=== PATIENT | male | born 1950 | race Caucasian/White ===

== ENCOUNTER 2020-01-24 06:24 | Day surgery (SDC) | payer OTHER, SELFPAY ==
[2020-01-22 19:10] VITALS: BMI 24.7
--- NOTE | 2020-01-23 12:45 | P.CONAN_ITS ---
Documented by User: Ann Miller 01/23/20 12:47 HPI - Anesthesia Eval Consult details Narrative: 69yo M for colonoscopy: screening [facility] Past Medical History Medical History Diabetes HTN (hypertension) Hyperlipidemia Peripheral neuropathy Surgical History Surgical History History of colonoscopy Social History Social History Smoking Status: Current every day smoker Patient Interested in Nicotine Replacement: No Use of substances other than those prescribed or required for medical reasons: No Advance Directives: Yes Advance Directives Information Provided: No (requested copy) Advance Directives on File: No Advance Directives Date on File: 05/05/19 Meds Allergies Allergy/AdvReac Type Severity Reaction Status Date / Time No Known Allergies Allergy Verified 01/22/20 19:17 Home Medications Medication Instructions Recorded Confirmed Type Aspirin Low Dose 81 mg PO DAILY 01/22/20 01/22/20 History Lantus U-100 Insulin 13 units SUBMUCOSAL INJ DAILY 01/22/20 01/22/20 History Novolog Flexpen U-100 Insulin 3 units TIDAC 01/22/20 01/22/20 History Vitamin D3 1,000 units PO DAILY 01/22/20 01/22/20 History amlodipine 10 mg PO DAILY 01/22/20 01/22/20 History chlorthalidone 12.5 mg PO DAILY 01/22/20 01/22/20 History ferrous sulfate 325 mg PO DAILY 01/22/20 01/22/20 History gabapentin 600 mg PO BID 01/22/20 01/22/20 History lisinopril 20 mg PO DAILY 01/22/20 01/22/20 History metoprolol tartrate 50 mg PO BID 01/22/20 01/22/20 History pravastatin 40 mg PO DAILY 01/22/20 01/22/20 History primidone 50 mg PO BEDTIME 01/22/20 01/22/20 History Exam Exam Date and Time: January 23, 2020 1245 Height,Weight and Vital Signs: Height 5 ft 5 in Weight 67.585 kg Assessment and Plan Assessment Anesthesia Assessment: Chart Reviewed Documented by User: Aletha Gregg 01/24/20 07:36 [facility] Past Medical History Medical History Diabetes HTN (hypertension) Hyperlipidemia Peripheral neuropathy Surgical History Surgical History History of colonoscopy Social History Social History Smoking Status: Current every day smoker Patient Interested in Nicotine Replacement: No Use of substances other than those prescribed or required for medical reasons: No Advance Directives: Yes Advance Directives Information Provided: No (requested copy) Advance Directives on File: No Advance Directives Date on File: 05/05/19 Meds Allergies Allergy/AdvReac Type Severity Reaction Status Date / Time No Known Allergies Allergy Verified 01/22/20 19:17 Home Medications Medication Instructions Recorded Confirmed Type Aspirin Low Dose 81 mg PO DAILY 01/22/20 01/22/20 History Lantus U-100 Insulin 13 units SUBMUCOSAL INJ DAILY 01/22/20 01/22/20 History Novolog Flexpen U-100 Insulin 3 units TIDAC 01/22/20 01/22/20 History Vitamin D3 1,000 units PO DAILY 01/22/20 01/22/20 History amlodipine 10 mg PO DAILY 01/22/20 01/22/20 History chlorthalidone 12.5 mg PO DAILY 01/22/20 01/22/20 History ferrous sulfate 325 mg PO DAILY 01/22/20 01/22/20 History gabapentin 600 mg PO BID 01/22/20 01/22/20 History lisinopril 20 mg PO DAILY 01/22/20 01/22/20 History metoprolol tartrate 50 mg PO BID 01/22/20 01/22/20 History pravastatin 40 mg PO DAILY 01/22/20 01/22/20 History primidone 50 mg PO BEDTIME 01/22/20 01/22/20 History Exam Airway Mallampati Class: II TM Dist: >3cm Denture: Upper Loose/Missing/Broken Teeth: No Heart: RRR Lungs: CTA Assessment and Plan Assessment Anesthesia Assessment: Anesthesia Plan Discussed and Chart Reviewed Final Anesthetic Review NPO: Yes ASA Class: II Final Preanesthetic Review: Meds/Allgs Chart Reviewed, Consent Obtained/Reviewed and Anes Risks/Benef Reviewed Patient Risk: Intermediate Procedure Risk: Low Anesthetic Plan Anesthetic Plan: MAC: Disposition: Standard PACU
[2020-01-24 06:49] VITALS: BP 117/55; PULSE 69; RESP 16; TEMP 36.4; O2SAT 100
[2020-01-24] MEDS: Lactated Ringers 1,000 ML 100 ML IVCONT (07:07)
[2020-01-24 07:12] LABS: Glucose, Whole Blood 160 mg/dL (60-115)
[2020-01-24 08:17] VITALS: BP 101/53; PULSE 75; RESP 16; TEMP 36.2; O2SAT 100
[2020-01-24 08:22] VITALS: BP 118/62; PULSE 73; RESP 16; O2SAT 100
--- NOTE | 2020-01-24 08:23 | PM.OP ---
Brief Operative Note Date of procedure: 01/24/20 Pre-op diagnosis: Screening Post-op diagnosis: other (Colon polyp, Diverticulosis) Procedure: Colonoscopy to cecum and TI with biopsy Surgeon: Jason Mayorga Anesthesia: MAC Estimated blood loss (mL): 2.0 Pathology: other (A. Ascending colon polyp) Condition: stable Disposition: PACU
[2020-01-24 08:28] VITALS: BP 104/60; PULSE 74; RESP 16; O2SAT 100
[2020-01-24 08:32] VITALS: BP 123/56; PULSE 74; RESP 16; O2SAT 100
--- NOTE | 2020-01-24 09:01 | HO.POSTANES ---
Post Anesthesia Evaluation Post Anesthesia Evaluation Vital Signs: Vital Signs Temp Pulse Resp BP Pulse Ox 01/24/20 08:32 97.2 F 74 16 123/56 L 100 01/24/20 08:28 74 16 104/60 100 01/24/20 08:22 73 16 118/62 100 01/24/20 08:17 97.2 F 75 16 101/53 L 100 01/24/20 06:49 97.6 F 69 16 117/55 L 100 Anesthesia: Monitored Mental Status: Awake Pain Control: Satisfactory Nausea/Vomiting: None Hydration: Adequate Anesthesia-Related Issues: No Anes. Related Issues
--- NOTE | 2020-01-24 09:38 | OP_ITS ---
SURGEON: Jason Mayorga MD INDICATIONS: The patient presents for evaluation of colorectal cancer screening. Full consent has been obtained from him for this, including risks of bleeding and perforation. PREOPERATIVE DIAGNOSIS: Colorectal cancer screening. POSTOPERATIVE DIAGNOSIS: PROCEDURE PERFORMED: Colonoscopy to the cecum and terminal ileum with biopsy and removal of polyp. ESTIMATED BLOOD LOSS: COMPLICATIONS: ANESTHESIA: Monitored anesthesia care. ASSISTANTS: SPECIMENS: POSTOPERATIVE DIAGNOSES: Colorectal cancer screening, small colon polyp, diverticulosis, and small internal hemorrhoids. DESCRIPTION OF PROCEDURE: The patient was placed in the left lateral decubitus position. The digital rectal exam revealed no abnormalities. The Olympus video pediatric colonoscope was entered into the rectum and advanced easily to the cecum. Once in the cecum, I did identify normal-appearing cecal pouch with appendiceal orifice and a normal-appearing ileocecal valve. The terminal ileum was cannulated and appeared normal. The scope was withdrawn back in the colon. The entire cecum and ileocecal valve appeared normal. The scope was slowly withdrawn assessing all mucosal surfaces carefully. Preparation was excellent. In the ascending colon, was a flat approximately 3 or 4 mm probable hyperplastic polyp, which was biopsied and completely removed with cold biopsy forceps. I did not visualize any other polyps, colitis, nor angiodysplasia. There was a mild amount of sigmoid diverticulosis. In the rectum, scope was retroflexed visualizing small internal hemorrhoids, but no other pathology. The rectal mucosa appeared normal. The scope was straightened out and withdrawn from the patient. He tolerated the procedure well and was returned to the recovery area in stable condition. IMPRESSION: 1. Small colon polyp, status post biopsy and removal. 2. Diverticulosis. 3. Small internal hemorrhoids. PLAN: The results of the biopsy will be checked. Given this minimal finding and his age, I doubt he will need another screening colonoscopy even if the small polyp today is a tubular adenoma. He will otherwise see me on a p.r.n. basis. This has been discussed with his . MD MONSTER Chisholm/LIUDMILA / [id number]
== END 2020-01-24 09:10 | disposition home or self-care (01) ==
PROVIDERS: Internal Medicine; PCP Internal Medicine; Visit Provider Anesthesiology
PROC: 0DJD8ZZ Inspection of Lower Intestinal Tract, Via Natural or Artificial Opening Endoscopic (ICD-10-PCS; CPT 45378; principal; 2020-01-24 07:30)
DX: Z12.11 Encounter for screening for malignant neoplasm of colon (principal); D12.2 Benign neoplasm of ascending colon; K57.30 Diverticulosis of large intestine without perforation or abscess without bleeding; K64.8 Other hemorrhoids; I10 Essential (primary) hypertension; E11.9 Type 2 diabetes mellitus without complications; G62.9 Polyneuropathy, unspecified; E78.5 Hyperlipidemia, unspecified; F17.210 Nicotine dependence, cigarettes, uncomplicated; Z79.4 Long term (current) use of insulin; Z79.82 Long term (current) use of aspirin; Z79.899 Other long term (current) drug therapy
CPT/HCPCS: 45380; 82947; 88305

== ENCOUNTER 2024-06-16 13:27 | Inpatient (IN) | payer OTHER, SELFPAY ==
--- NOTE | ~2024-06-16 | NM_ITS ---
CLINICAL HISTORY: distended gallbaldder, elevated LFTs NM HIDA Scan Comparison: CT/SR - CT ABDOMEN PELVIS WO IV CON - 06/16/24 16:17 EDT Technique: distended gallbaldder, elevated LFTs (Hx) / Statics (DICOM Hx) (DICOM Hx) Findings: Normal liver uptake, distribution, and excretion. Gallbladder appears at 28 minutes. Central bile ducts appear at 16 minutes. Duodenum visualized at 24 minutes. No enterogastric reflux of radiotracer is identified. IMPRESSION: No evidence of biliary obstruction or acute cholecystitis. This document has been electronically signed by: Alexys Quintana MD on 06/17/2024 17:16:16
--- NOTE | ~2024-06-16 | CT_ITS ---
CLINICAL HISTORY: MOISES, evaluate for masses CT chest without contrast Comparison: None Findings: The heart is normal size. The visualized thyroid and mediastinum are unremarkable. Right lower lobe consolidation. Additional small multifocal consolidations are noted within the right upper and left lower lobes. Findings are consistent with multifocal pneumonia. Mild right hilar lymphadenopathy, likely reactive. The visualized upper abdomen is unremarkable. No acute fractures. IMPRESSION: Right lower lobe consolidation. Additional small multifocal consolidations are noted within the right upper and left lower lobes. Findings are consistent with multifocal pneumonia. Mild right hilar lymphadenopathy, likely reactive in nature. This document has been electronically signed by: Taqueria Miller MD on 06/16/2024 19:17:40
--- NOTE | ~2024-06-16 | CT_ITS ---
CLINICAL HISTORY: dizziness, evaluate for mass CT head without contrast Comparison: None Findings: No intra-axial mass, midline shift, hydrocephalus, or acute hemorrhage. No significant atrophy-like change or white matter disease. The visualized paranasal sinuses and mastoid air cells are normal. The orbits are unremarkable. There is no acute fracture. IMPRESSION: 1. No acute intracranial findings. This document has been electronically signed by: Taqueria Miller MD on 06/16/2024 19:28:29
--- NOTE | ~2024-06-16 | CT_ITS ---
CLINICAL HISTORY: MOISES, diarrhea, evaluate for masses CT abdomen and pelvis without contrast Comparison: None Findings: The lung bases are clear. Cholelithiasis with moderately distended gallbladder measuring 4.3 cm in transverse diameter. No gallbladder wall thickening or pericholecystic fluid is seen. Remainder of the solid organs are grossly unremarkable. No bowel obstruction, pneumoperitoneum, or pneumatosis. Moderate-sized right inguinal hernia containing partial herniation of the cecum. No evidence of bowel obstruction. Mild prostatomegaly with prostate measuring 5.0 x 3.8 x 5.7 cm. Moderately distended urinary bladder. The bones are intact. Severe multilevel spondylosis of the lumbar spine with moderate levoscoliosis at L3. IMPRESSION: No acute findings. Cholelithiasis with moderately distended gallbladder. Correlate with patient NPO status. Otherwise no evidence of acute cholecystitis. Moderate-sized right inguinal hernia containing partial herniation of the cecum. No evidence of bowel obstruction. Mild prostatomegaly with moderately distended urinary bladder. Severe multilevel spondylosis of the lumbar spine with moderate levoscoliosis at L3. This document has been electronically signed by: Taqueria Miller MD on 06/16/2024 19:25:28
[2024-06-16 13:51] VITALS: BP 107/61; PULSE 97; RESP 16; TEMP 36.4; O2SAT 92; BMI 20.7
--- NOTE | 2024-06-16 13:53 | ED.GENADULT ---
HPI - General Adult General Chief complaint: General Medical Stated complaint: congestion, blocked ears Time Seen by Provider: 06/16/24 14:17 Source: patient Mode of arrival: ambulatory Limitations: no limitations History of Present Illness ED Provider: Jeff Rivera DO HPI narrative: 74-year-old male with past medical history of insulin-dependent diabetes, hypertension, hyperlipidemia and previous longstanding tobacco use who has had a week of 2 episodes of diarrhea per day, generalized weakness, body aches, headache, dizziness and nonproductive cough. Patient denies black or bloody diarrhea. He denies vomiting episodes. He denies chest pain. Denies ear pain but does report mild decreased hearing of the right ear over the last week. He states he has had very little to eat over the last week, occasional soup and lots of water every day. He denies alcohol use. He has had no recent medication changes. Related Data Home Medications ?Medication ?Instructions ?Recorded ?Confirmed Aspirin Low Dose 81 mg PO DAILY 01/22/20 01/22/20 Lantus U-100 Insulin 13 units Submucosal Inj DAILY 01/22/20 01/22/20 Novolog Flexpen U-100 Insulin 3 units TIDAC 01/22/20 01/22/20 Vitamin D3 1,000 units PO DAILY 01/22/20 01/22/20 amlodipine 10 mg tablet 10 mg PO DAILY 01/22/20 01/22/20 chlorthalidone 25 mg tablet 12.5 mg PO DAILY 01/22/20 01/22/20 ferrous sulfate 325 mg (65 mg 325 mg PO DAILY 01/22/20 01/22/20 iron) tablet gabapentin 600 mg tablet 600 mg PO BID 01/22/20 01/22/20 lisinopril 20 mg tablet 20 mg PO DAILY 01/22/20 01/22/20 metoprolol tartrate 50 mg tablet 50 mg PO BID 01/22/20 01/22/20 pravastatin 40 mg tablet 40 mg PO DAILY 01/22/20 01/22/20 primidone 50 mg tablet 50 mg PO BEDTIME 01/22/20 01/22/20 Allergies Allergy/AdvReac Type Severity Reaction Status Date / Time No Known Allergies Allergy Verified 06/16/24 13:56 Review of Systems Review of Systems: Yes all other systems are reviewed and are negative PMFSH Past Medical History Medical History Diabetes HTN (hypertension) Hyperlipidemia Peripheral neuropathy Surgical History History of colonoscopy Social History Social History Cigarettes Per Day: 1 Advance Directives: Yes Advance Directives on File: Yes Advance Directives Date on File: 05/05/19 Physical Exam ED Vital Signs: Vital Signs - 24 hr 06/16/24 13:51 06/16/24 18:08 Temperature 97.6 F 98.4 F Pulse Rate 97 104 H Respiratory Rate 16 20 Blood Pressure 107/61 108/64 Pulse Oximetry 92 94 Oxygen Delivery Method Room Air Room Air BMI result Body Mass Index 20.7 Constitutional: ?Alert, oriented, speaking in full sentences, weak appearing, thin HEENT: ?Normocephalic, atraumatic. ?Dry mucous membranes, unremarkable TM bilaterally Eyes: ?PERRL, EOMI, no nystagmus Neck: ?Supple, nontender Chest: ?No chest wall tenderness Respiratory: ?Some diminished lung sounds in the bases, right-sided greater than left, otherwise lungs clear to auscultation, no increased work of breathing Cardio: ?Tachycardic rate, regular rhythm, no murmur, 2+ radial and DP pulses symmetrically GI: ?Soft, nondistended, nontender, very small right inguinal hernia that reduces, and is nontender Back: ?Normal range of motion, nontender Skin: ?No rash, no lesions Neuro: ?Alert and oriented to person, place and time, moves all 4 extremities, no focal deficits, full strength and sensation of the bilateral upper and lower extremities, no numbness of the face, no facial droop, normal speech, normal protrusion of the tongue, normal elevation of the uvula. Extremities: ?No swelling or tenderness, full range of motion Psych: ?Calm, alert and cooperative, appropriate behavior Course Course Course Narrative: This is a Rapid Medical Examination (RME) performed by Stephanie Griffin PA-C in triage. Full HPI, ROS, assessment and treatment plan per primary provider in the Main ED. 74 yo male wiith history of DM, HTN, who presents to the ER for evaluation of dizziness, ear pain/blockage, congestion, fevers at night and diarrhea for the last 1 week. is also having diarrhea. no chest pain, SOB or abdominal pains. right EAC w/ swelling and erythema, unable to visualize TM. Plan: EKG, labs, viral swab Medications Administered Generic Name Dose Route Start Last Admin Trade Name Freq PRN Reason Stop Dose Admin Magnesium Sulfate 2 gm in 50 mls @ 25 mls/hr 06/16/24 19:44 06/16/24 19:59 Magnesium Sulfate/H2o IV 06/16/24 21:43 25 mls/hr ONCE ONE Administration Discontinued Medications Generic Name Dose Route Start Last Admin Trade Name Freq PRN Reason Stop Dose Admin Ceftriaxone Sodium 1 gm 06/16/24 17:01 06/16/24 17:15 Ceftriaxone Sodium 1 Gm Vial IVPUSH 06/16/24 17:02 1 gm ONCE ONE Administration Magnesium Sulfate 2 gm in 50 mls @ 25 mls/hr 06/16/24 15:10 06/16/24 17:05 Magnesium Sulfate/H2o IV 06/16/24 17:09 Infused ONCE ONE Infusion Azithromycin 500 mg/ Sodium 250 mls @ 125 mls/hr 06/16/24 17:01 06/16/24 19:15 Chloride IV 06/16/24 19:00 Infused ONCE ONE Infusion Medical Decision Making Medical Decision Making MDM Narrative: Patient presenting with multiple symptoms over the last week concerning for viral versus bacterial infection. His labs are quite remarkable today (no prior for comparison, [facility]) with a white count of 30 K, neutrophilic predominant with 3% bands, metabolic acidosis without lactic acidosis, hyponatremia to 121 (pending urine osmolality and urine lytes), MOISES with a creatinine of 3.36 (again no prior) and hypomagnesemia of 1.1. He is otherwise alert and oriented, unremarkable neurologic exam and with the exception of mild tachycardia, unremarkable vital signs. He has not have clinical signs consistent with C diff colitis and no episodes of diarrhea since his stay for several hours in the emergency department. I am concerned that his hyponatremia is at least due to consuming lots of water over the last week with very little food intake due to decreased appetite but given his appearance and previous tobacco use, I am concerned he might have SIADH secondary to malignancy. CT imaging of the chest shows evidence of multifocal pneumonia with extensive right lower lobe consolidation. CT imaging of the abdomen and pelvis performed due to diarrhea and shows cholelithiasis without evidence of cholecystitis, moderate right-sided inguinal hernia with partial herniation of the cecum without evidence of bowel obstruction, mild prostatomegaly, and degenerative changes of the lumbar spine. Patient is started on treatment for pneumonia. He does not meet criteria for sepsis. CT imaging of the brain was also ordered due to dizziness and showed no acute abnormalities. Admission/Observation Consideration of admission/observation: Escalation of care including admission/observation considered Consult Healthcare Provider Management of the patient was discussed with: Hospitalist Lab Data MDM Lab Attestation statement: I reviewed the patient's lab results. Multiple abnormal labs including hyponatremia at 121, decreased bicarb of 16, elevated anion gap to 19, MOISES with a creatinine of 3.36 and BUN of 64, hypomagnesemia at 1.1, mild elevation of AST over ALT at 98 and 51 respectively without hyperbilirubinemia, hypoalbuminemia at 2.8, significant leukocytosis of 29.6 which is neutrophilic predominant at 28.4 absolute neutrophils, mild anemia at 11.7, unremarkable platelets at 222 and [place] cells noted with differential including CKD, without evidence of hemolytic anemia and without history of sickle cell disease. 06/16/24 14:18 06/16/24 14:18 Labs: Lab Results 06/16/24 06/16/24 06/16/24 Range/Units 14:18 15:21 15:50 WBC 29.6 H (4.8-10.8) X10*3/uL RBC 3.66 L (4.60-5.80) X10*6/uL Hgb 11.7 L (14.0-18.0) g/dl Hct 32.6 L (42.0-52.0) % MCV 89.1 (80.0-98.0) fL MCH 32.0 (27.0-33.0) pg MCHC 35.9 (31.0-36.0) g/dl RDW 13.0 (11.0-16.0) % Plt Count 222 (160-400) X10*3/uL MPV 9.7 (9.4-12.4) fL Immature Gran % (Auto) Cancelled Neut % (Auto) Cancelled Lymph % (Auto) Cancelled [place] % (Auto) Cancelled Eos % (Auto) Cancelled Baso % (Auto) Cancelled Lymph # (Auto) Cancelled [place] # (Auto) Cancelled Eos # (Auto) Cancelled Baso # (Auto) Cancelled Abs Immat Gran (auto) Cancelled Absolute Neuts (auto) Cancelled Absolute Nucleated RBC 0.000 (0.0-0.012) X10*3/uL Nucleated RBC % (auto) 0.0 (0.0-0.2) /100WBC Neutrophils % (Manual) 93 H (45-73) % Band Neutrophils % 3 (3-5) % Lymphocytes % (Manual) 1 L (20-40) % Monocytes % (Manual) 3 (2-11) % Abs Neuts (Manual) 28.4 H (2.0-8.3) X10*3/uL Lymphocytes # (Manual) 0.3 L (1.2-4.9) X10*3/uL Monocytes # (Manual) 0.9 (0.1-1.2) X10*3/uL Toxic Vacuolation PRESENT Dohle Bodies PRESENT Platelet Estimate NORMAL (NORMAL) Plt Morphology Comment NORMAL RBC Morphology NOTED [place] Cells 3+ (>5) /OIF VBG pH (7.32-7.43) VBG pCO2 mmHg VBG pO2 mmHg VBG HCO3 (22-26) mmol/L VBG O2 Saturation % VBG Base Excess mmol/L Sodium 121 L (135-145) mmol/L Potassium 4.7 (3.3-5.1) mmol/L Chloride 91 L (96-108) mmol/L Carbon Dioxide 16 L (22-29) mmol/L Anion Gap 19 (12-20) BUN 64 H (9-16) mg/dL Creatinine 3.36 H (0.5-1.4) mg/dL Estim Creat Clear Calc 15.3 Estimated GFR 18 Random Glucose 117 H (60-115) mg/dL Osmolality (281-305) mosm/kg Lactic Acid 1.0 (0.5-2.0) mmol/L Calcium 8.3 L (8.4-10.2) mg/dL Magnesium 1.1 L* (1.6-2.6) mg/dL Total Bilirubin 0.3 (0.0-1.0) mg/dL Direct Bilirubin 0.1 (0.0-0.5) mg/dL AST 98 H (5-37) U/L ALT 51 H (0-40) U/L Alkaline Phosphatase 142 H (39-117) U/L Total Protein 7.2 (6.5-8.0) g/dL Albumin 2.8 L (3.5-5.0) g/dL Triglycerides 83 (<150) mg/dL Cholesterol 57 (<200) mg/dL LDL Cholesterol, Calc 28 (<100) mg/dL HDL Cholesterol 13 L (>40) mg/dL Urine Color Urine Appearance Urine pH (5.0-9.0) Ur Specific [place] (1.005-1.025) Urine Protein (Neg-Trace) mg/dL Urine Glucose (UA) (Negative) mg/dL Urine Ketones (Negative) mg/dL Urine Blood (Negative) Urine Nitrite (Negative) Ur Leukocyte Esterase (Negative) Urine RBC (0-2) /HPF Urine WBC (0-5) /HPF Ur Squamous Epith Cells (0-2) /HPF Urine Bacteria (None Seen) Hyaline Casts (0-2) /LPF Urine Osmolality (373-1093) mosm/kg Ur Random Sodium mmol/L Ur Random Potassium mmol/L Ur Random Chloride mmol/L Influenza Type A (PCR) NEGATIVE (Negative) Influenza Type B (PCR) NEGATIVE (Negative) RSV RNA Qual (PCR) NEGATIVE (Negative) SARS-CoV-2 RNA (RT-PCR) NEGATIVE (Negative) 06/16/24 06/16/24 06/16/24 Range/Units 15:58 16:56 17:29 WBC (4.8-10.8) X10*3/uL RBC (4.60-5.80) X10*6/uL Hgb (14.0-18.0) g/dl Hct (42.0-52.0) % MCV (80.0-98.0) fL MCH (27.0-33.0) pg MCHC (31.0-36.0) g/dl RDW (11.0-16.0) % Plt Count (160-400) X10*3/uL MPV (9.4-12.4) fL Immature Gran % (Auto) Neut % (Auto) Lymph % (Auto) [place] % (Auto) Eos % (Auto) Baso % (Auto) Lymph # (Auto) [place] # (Auto) Eos # (Auto) Baso # (Auto) Abs Immat Gran (auto) Absolute Neuts (auto) Absolute Nucleated RBC (0.0-0.012) X10*3/uL Nucleated RBC % (auto) (0.0-0.2) /100WBC Neutrophils % (Manual) (45-73) % Band Neutrophils % (3-5) % Lymphocytes % (Manual) (20-40) % Monocytes % (Manual) (2-11) % Abs Neuts (Manual) (2.0-8.3) X10*3/uL Lymphocytes # (Manual) (1.2-4.9) X10*3/uL Monocytes # (Manual) (0.1-1.2) X10*3/uL Toxic Vacuolation Dohle Bodies Platelet Estimate (NORMAL) Plt Morphology Comment RBC Morphology [place] Cells /OIF VBG pH 7.31 L (7.32-7.43) VBG pCO2 37 mmHg VBG pO2 40 mmHg VBG HCO3 19 L (22-26) mmol/L VBG O2 Saturation 63.0 % VBG Base Excess -6.5 mmol/L Sodium (135-145) mmol/L Potassium (3.3-5.1) mmol/L Chloride (96-108) mmol/L Carbon Dioxide (22-29) mmol/L Anion Gap (12-20) BUN (9-16) mg/dL Creatinine (0.5-1.4) mg/dL Estim Creat Clear Calc Estimated GFR Random Glucose (60-115) mg/dL Osmolality 283 (281-305) mosm/kg Lactic Acid (0.5-2.0) mmol/L Calcium (8.4-10.2) mg/dL Magnesium (1.6-2.6) mg/dL Total Bilirubin (0.0-1.0) mg/dL Direct Bilirubin (0.0-0.5) mg/dL AST (5-37) U/L ALT (0-40) U/L Alkaline Phosphatase (39-117) U/L Total Protein (6.5-8.0) g/dL Albumin (3.5-5.0) g/dL Triglycerides (<150) mg/dL Cholesterol (<200) mg/dL LDL Cholesterol, Calc (<100) mg/dL HDL Cholesterol (>40) mg/dL Urine Color Yellow Urine Appearance Clear Urine pH 5.0 (5.0-9.0) Ur Specific [place] 1.020 (1.005-1.025) Urine Protein Trace (Neg-Trace) mg/dL Urine Glucose (UA) >=1000 H (Negative) mg/dL Urine Ketones Negative (Negative) mg/dL Urine Blood Negative (Negative) Urine Nitrite Negative (Negative) Ur Leukocyte Esterase Negative (Negative) Urine RBC 3-5 H (0-2) /HPF Urine WBC 0-5 (0-5) /HPF Ur Squamous Epith Cells 0-2 (0-2) /HPF Urine Bacteria None Seen (None Seen) Hyaline Casts 0-2 (0-2) /LPF Urine Osmolality 305 L (373-1093) mosm/kg Ur Random Sodium < 20.0 mmol/L Ur Random Potassium 23.7 mmol/L Ur Random Chloride < 20.0 mmol/L Influenza Type A (PCR) (Negative) Influenza Type B (PCR) (Negative) RSV RNA Qual (PCR) (Negative) SARS-CoV-2 RNA (RT-PCR) (Negative) Independent Interpretation I performed an independent interpretation of an: EKG Interpretation: Normal sinus rhythm at 97 beats per minute, normal axis, normal intervals, no diagnostic ST or T-wave abnormalities, no prior for comparison. Discharge Plan Discharge Clinical Impression: Pneumonia, Acute hyponatremia, Hypomagnesemia, MOISES (acute kidney injury), Inguinal hernia, Cholelithiasis Patient Disposition: Admitted As Inpatient Prescriptions: No Action Aspirin Low Dose 81 mg PO DAILY primidone 50 mg Tablet 50 mg PO BEDTIME gabapentin 600 mg Tablet 600 mg PO BID lisinopril 20 mg Tablet 20 mg PO DAILY ferrous sulfate 325 mg (65 mg iron) Tablet 325 mg PO DAILY Vitamin D3 1,000 units PO DAILY pravastatin 40 mg Tablet 40 mg PO DAILY chlorthalidone 25 mg Tablet 12.5 mg PO DAILY Lantus U-100 Insulin 13 units Submucosal Inj DAILY Novolog Flexpen U-100 Insulin 3 units TIDAC amlodipine 10 mg Tablet 10 mg PO DAILY metoprolol tartrate 50 mg Tablet 50 mg PO BID Print Language: Cymraes
--- NOTE | 2024-06-16 13:54 | ECG_ITS ---
Test Reason : DIZZINESS Blood Pressure : */* mmHG Vent. Rate : 97 BPM Atrial Rate : 97 BPM P-R Int : 162 ms QRS Dur : 88 ms QT Int : 336 ms P-R-T Axes : 37 52 73 degrees QTcB Int : 426 ms Normal sinus rhythm with sinus arrhythmia Normal ECG No previous ECGs available Referred By: Sonal Griffin Electronically Signed By: Lemuel Bustamante
[2024-06-16 14:26] LABS: Hematocrit 32.6 % (42.0-52.0); Hemoglobin 11.7 g/dl (14.0-18.0); Mean Corpuscular HGB Conc 35.9 g/dl (31.0-36.0); Mean Corpuscular Volume 89.1 fL (80.0-98.0); Mean Platelet Volume 9.7 fL (9.4-12.4); Platelet Count 222 X10*3/uL (160-400); Red Blood Count 3.66 X10*6/uL (4.60-5.80); White Blood Count 29.6 X10*3/uL (4.8-10.8)
[2024-06-16 14:47] LABS: Alanine Aminotransferase 51 U/L (0-40); Albumin Level 2.8 g/dL (3.5-5.0); Alkaline Phosphatase 142 U/L (39-117); Anion Gap 19 (12-20); Aspartate Amino Transferase 98 U/L (5-37); Bilirubin Direct 0.1 mg/dL (0.0-0.5); Bilirubin Total 0.3 mg/dL (0.0-1.0); Blood Urea Nitrogen 64 mg/dL (9-16); Calcium 8.3 mg/dL (8.4-10.2); Carbon Dioxide 16 mmol/L (22-29); Chloride 91 mmol/L (96-108); Creatinine Clr Calc Pharmacy 15.3; Estimated Glomerular Filt Rate 18; Glucose Random 117 mg/dL (60-115); Magnesium 1.1 mg/dL (1.6-2.6); Potassium 4.7 mmol/L (3.3-5.1); Sodium 121 mmol/L (135-145); Total Protein 7.2 g/dL (6.5-8.0)
[2024-06-16 14:49] LABS: Band Neutrophils Percent 3 % (3-5); Lymphocytes Absolute Manual 0.3 X10*3/uL (1.2-4.9); Lymphocytes Percent Manual 1 % (20-40); Monocytes Absolute Manual 0.9 X10*3/uL (0.1-1.2); Monocytes Percent Manual 3 % (2-11); Neutrophils Absolute Manual 28.4 X10*3/uL (2.0-8.3); Neutrophils Percent Manual 93 % (45-73)
[2024-06-16 14:50] LABS: Burr Cells 3+ (>5) /OIF; Dohle Bodies PRESENT; Platelet Estimate NORMAL (NORMAL); Platelet Morphology Comment NORMAL; RBC Morphology NOTED
[2024-06-16 14:51] LABS: Toxic Vacuolation PRESENT
[2024-06-16] MEDS: Magnesium Sulfate/H2O 2 GM/50 ML PIGGYBACK IV ×2 (15:20→19:59)
[2024-06-16 16:03] LABS: VBG Base Excess -6.5 mmol/L; VBG HCO3 19 mmol/L (22-26); VBG pCO2 37 mmHg; VBG pH 7.31 (7.32-7.43); VBG pO2 40 mmHg
[2024-06-16 16:05] LABS: Venous Blood Gas Refer to POC result
[2024-06-16 17:14] LABS: Influenza A PCR NEGATIVE (Negative); Influenza B PCR NEGATIVE (Negative); Resp Syncy Virus RNA Qual PCR NEGATIVE (Negative); SARS COV2 PCR INHOUSE NEGATIVE (Negative)
[2024-06-16] MEDS: Azithromycin 500 MG in 0.9 % Sodium Chloride 250 ML 125 MG IV (17:15)
[2024-06-16] MEDS: cefTRIAXone sodium 1 GM VIAL IVPUSH (17:15)
[2024-06-16 17:16] LABS: Chloride Urine Random < 20.0 mmol/L; Potassium Urine Random 23.7 mmol/L; Sodium Urine Random < 20.0 mmol/L
[2024-06-16 17:25] LABS: Appearance Urine Clear; Color Urine Yellow; Glucose Urine UA >=1000 mg/dL (Negative); Leukocyte Esterase Urine Negative (Negative); Nitrite Urine Negative (Negative); UMIC TRIGGER UACC YES; Urine Blood Negative (Negative); Urine Ketones Negative (Negative); Urine Protein Trace mg/dL (Neg-Trace)
[2024-06-16 17:42] LABS: Bacteria Urine None Seen (None Seen); Hyaline Casts Urine 0-2 /LPF (0-2); Squamous Epithelial Cell Urine 0-2 /HPF (0-2); WBC Urine 0-5 /HPF (0-5)
[2024-06-16 17:45] LABS: Osmolality Urine 305 mosm/kg (373-1093)
[2024-06-16 18:00] LABS: Osmolality, Serum 283 mosm/kg (281-305)
[2024-06-16 18:08] VITALS: BP 108/64; PULSE 104; RESP 20; TEMP 36.9; O2SAT 94
[2024-06-16 19:22] LABS: Cholesterol 57 mg/dL (<200); HDL Cholesterol 13 mg/dL (>40); LDL Cholesterol Calculated 28 mg/dL (<100); Triglycerides 83 mg/dL (<150)
[2024-06-16 20:39] LABS: Glucose, Whole Blood 131 mg/dL (60-115)
--- NOTE | 2024-06-16 21:08 | PM.IMHP ---
History of Present Illness Date of Service: 06/16/24 Attending physician on admission: Acosta Giraldo Chief Complaint: dizzy, congestion, fever, diarrhea Patient is a 74-year-old male with a past medical history significant for insulin-dependent diabetes, HTN, ARUNA, HLD, tremor, reported to the ED due to dizziness, congestion, tactile fever and diarrhea for the past week. He reports he has not been able to eat or drink much at all for the past few days. His has also been experiencing diarrhea. He denies any chest pain, shortness of breath or abdominal pain. No urinary symptoms including hematuria, dysuria or frequency. He also denies any nausea or vomiting. He is experiencing diarrhea mostly in the morning but has been unable to tolerate much by mouth because of this. Review of Systems Constitutional: Constitutional: Denies body ache(s), Denies chills, Reports fatigue and Reports headache(s) Eyes: Eyes: Denies change in vision and Denies photophobia ENT: Reports dizziness, Reports headache(s), Reports nasal congestion and Reports nasal discharge Cardiovascular: Cardiovascular: Denies chest pain, Denies rapid heart rate, Denies leg edema, Denies lightheadedness and Denies dyspnea Respiratory: Respiratory: Reports chest congestion, Reports cough, Denies dyspnea and Denies wheezing Gastrointestinal: Gastrointestinal: Denies melena, Denies hematochezia, Reports diarrhea, Denies nausea and Denies vomiting Genitourinary: Genitourinary: Denies hematuria, Denies difficulty urinating and Denies urinary urgency Musculoskeletal: Musculoskeletal: Denies myalgias Integumentary/Breasts: Skin/Breast: Denies rash Neurologic: Denies confusion, Reports dizziness and Reports headache(s) Psychiatric: Psychiatric: Denies confusion Endocrine: Endocrine: Reports fatigue Hematologic/Lymphatic: Hematologic/Lymphatic: Denies easy bleeding and Denies easy bruising Allergic/Immunologic: Allergic/Immunologic: Denies wheezing [facility] Medical History Diabetes HTN (hypertension) Hyperlipidemia Peripheral neuropathy Functional capacity: independent ambulation Surgical History History of colonoscopy Social History Cigarettes Per Day: 1 Advance Directives: Yes Advance Directives on File: Yes Advance Directives Date on File: 05/05/19 Narrative: No smoking or drug use. Consumes about 2 beers per week Meds Allergies Allergy/AdvReac Type Severity Reaction Status Date / Time No Known Allergies Allergy Verified 06/16/24 13:56 Active Medications: Current Medications Acetaminophen (Acetaminophen 325 Mg Tablet) 650 mg PO Q6H PRN PRN Reason: Pain, Mild 1-3,fever,headache Calcium Carbonate (Calcium Carbonate 750 Mg Tab.Chew) 750 mg PO Q4H PRN PRN Reason: Heartburn Enoxaparin Sodium (Enoxaparin Sodium 30 Mg/0.3 Ml Syringe) 30 mg SUBCUT Q24H TAMIE Magnesium Sulfate (Magnesium Sulfate/H2o) 2 gm in 50 mls @ 25 mls/hr IV ONCE ONE Stop: 06/16/24 21:43 Last Admin: 06/16/24 19:59 Dose: 25 mls/hr Lactated Ringer's (Lr) 1,000 mls @ 50 mls/hr IVCONT .Q20H TAMIE Magnesium Hydroxide (Milk Of Magnesia 30 Ml Oral.Susp) 30 ml PO DAILY PRN PRN Reason: Constipation Melatonin (Melatonin 3 Mg Tablet) 6 mg PO BEDTIME PRN PRN Reason: Insomnia Ondansetron HCl (Ondansetron Hcl 4 Mg/2 Ml Vial) 4 mg IVPUSH Q8H PRN PRN Reason: Nausea and Vomiting Sodium Chloride (0.9 % Sodium Chloride Flush 3 Ml Syringe) 3 ml IVFLUSH QSHIFT [facility] Home Medications ?Medication ?Instructions ?Recorded ?Confirmed ?Last Taken ?Type Aspirin Low Dose 81 mg PO DAILY 01/22/20 01/22/20 01/16/20 09:00 History Lantus U-100 Insulin 13 units Submucosal Inj DAILY 01/22/20 01/22/20 Unknown History Novolog Flexpen U-100 Insulin 3 units TIDAC 01/22/20 01/22/20 Unknown History Vitamin D3 1,000 units PO DAILY 01/22/20 01/22/20 Unknown History amlodipine 10 mg tablet 10 mg PO DAILY 01/22/20 01/22/20 Unknown History chlorthalidone 25 mg tablet 12.5 mg PO DAILY 01/22/20 01/22/20 Unknown History ferrous sulfate 325 mg (65 mg 325 mg PO DAILY 01/22/20 01/22/20 Unknown History iron) tablet gabapentin 600 mg tablet 600 mg PO BID 01/22/20 01/22/20 Unknown History lisinopril 20 mg tablet 20 mg PO DAILY 01/22/20 01/22/20 Unknown History metoprolol tartrate 50 mg tablet 50 mg PO BID 01/22/20 01/22/20 Unknown History pravastatin 40 mg tablet 40 mg PO DAILY 01/22/20 01/22/20 Unknown History primidone 50 mg tablet 50 mg PO BEDTIME 01/22/20 01/22/20 Unknown History Physical Exam Vital Signs and Narrative: Vital Signs: Last Vital Signs Temp 98.4 F 06/16/24 18:08 Pulse 104 H 06/16/24 18:08 Resp 20 06/16/24 18:08 BP 108/64 06/16/24 18:08 Pulse Ox 94 06/16/24 18:08 O2 Del Method Room Air 06/16/24 18:08 BMI result Body Mass Index 20.7 General: AOx3, no acute distress. tolerating sandwich and water. does not appear to have dysphagia, no choking Resp: crackles RLL, no wheezing CVS: mild tachycardia, normal rhythm, no murmur GI: +BS, NT, no distention Skin: Warm, dry Neuro: Cranial nerves II-XII grossly intact bilaterally. Motor grossly intact bilaterally Extremities: No LE edema Psych: Appropriate affect Const: General: No confusion Orientation/consciousness: No confusion Eyes: Direct Ophthalmoscopy: No photophobia Neuro: General: No confusion Results Labs 06/16/24 14:18 06/16/24 14:18 Labs: Laboratory Results - last 24 hr 06/16/24 06/16/24 06/16/24 14:18 15:21 15:50 MCV 89.1 MCH 32.0 MCHC 35.9 RDW 13.0 Plt Count 222 MPV 9.7 Immature Gran % (Auto) Cancelled Neut % (Auto) Cancelled Lymph % (Auto) Cancelled [place] % (Auto) Cancelled Eos % (Auto) Cancelled Baso % (Auto) Cancelled Lymph # (Auto) Cancelled [place] # (Auto) Cancelled Eos # (Auto) Cancelled Baso # (Auto) Cancelled Abs Immat Gran (auto) Cancelled Absolute Neuts (auto) Cancelled Absolute Nucleated RBC 0.000 Nucleated RBC % (auto) 0.0 Neutrophils % (Manual) 93 H Band Neutrophils % 3 Lymphocytes % (Manual) 1 L Monocytes % (Manual) 3 Abs Neuts (Manual) 28.4 H Lymphocytes # (Manual) 0.3 L Monocytes # (Manual) 0.9 Toxic Vacuolation PRESENT Dohle Bodies PRESENT Platelet Estimate NORMAL Plt Morphology Comment NORMAL RBC Morphology NOTED [place] Cells 3+ (>5) VBG pH VBG pCO2 VBG pO2 VBG HCO3 VBG O2 Saturation VBG Base Excess Anion Gap 19 Estim Creat Clear Calc 15.3 Estimated GFR 18 POC Glucose Random Glucose 117 H Osmolality Lactic Acid 1.0 Calcium 8.3 L Magnesium 1.1 L* Total Bilirubin 0.3 Direct Bilirubin 0.1 AST 98 H ALT 51 H Alkaline Phosphatase 142 H Total Protein 7.2 Albumin 2.8 L Triglycerides 83 Cholesterol 57 LDL Cholesterol, Calc 28 HDL Cholesterol 13 L Urine Color Urine Appearance Urine pH Ur Specific [place] Urine Protein Urine Glucose (UA) Urine Ketones Urine Blood Urine Nitrite Ur Leukocyte Esterase Urine RBC Urine WBC Ur Squamous Epith Cells Urine Bacteria Hyaline Casts Urine Osmolality Ur Random Sodium Ur Random Potassium Ur Random Chloride Influenza Type A (PCR) NEGATIVE Influenza Type B (PCR) NEGATIVE RSV RNA Qual (PCR) NEGATIVE SARS-CoV-2 RNA (RT-PCR) NEGATIVE 06/16/24 06/16/24 06/16/24 15:58 16:56 17:29 MCV MCH MCHC RDW Plt Count MPV Immature Gran % (Auto) Neut % (Auto) Lymph % (Auto) [place] % (Auto) Eos % (Auto) Baso % (Auto) Lymph # (Auto) [place] # (Auto) Eos # (Auto) Baso # (Auto) Abs Immat Gran (auto) Absolute Neuts (auto) Absolute Nucleated RBC Nucleated RBC % (auto) Neutrophils % (Manual) Band Neutrophils % Lymphocytes % (Manual) Monocytes % (Manual) Abs Neuts (Manual) Lymphocytes # (Manual) Monocytes # (Manual) Toxic Vacuolation Dohle Bodies Platelet Estimate Plt Morphology Comment RBC Morphology [place] Cells VBG pH 7.31 L VBG pCO2 37 VBG pO2 40 VBG HCO3 19 L VBG O2 Saturation 63.0 VBG Base Excess -6.5 Anion Gap Estim Creat Clear Calc Estimated GFR POC Glucose Random Glucose Osmolality 283 Lactic Acid Calcium Magnesium Total Bilirubin Direct Bilirubin AST ALT Alkaline Phosphatase Total Protein Albumin Triglycerides Cholesterol LDL Cholesterol, Calc HDL Cholesterol Urine Color Yellow Urine Appearance Clear Urine pH 5.0 Ur Specific [place] 1.020 Urine Protein Trace Urine Glucose (UA) >=1000 H Urine Ketones Negative Urine Blood Negative Urine Nitrite Negative Ur Leukocyte Esterase Negative Urine RBC 3-5 H Urine WBC 0-5 Ur Squamous Epith Cells 0-2 Urine Bacteria None Seen Hyaline Casts 0-2 Urine Osmolality 305 L Ur Random Sodium < 20.0 Ur Random Potassium 23.7 Ur Random Chloride < 20.0 Influenza Type A (PCR) Influenza Type B (PCR) RSV RNA Qual (PCR) SARS-CoV-2 RNA (RT-PCR) 06/16/24 20:34 MCV MCH MCHC RDW Plt Count MPV Immature Gran % (Auto) Neut % (Auto) Lymph % (Auto) [place] % (Auto) Eos % (Auto) Baso % (Auto) Lymph # (Auto) [place] # (Auto) Eos # (Auto) Baso # (Auto) Abs Immat Gran (auto) Absolute Neuts (auto) Absolute Nucleated RBC Nucleated RBC % (auto) Neutrophils % (Manual) Band Neutrophils % Lymphocytes % (Manual) Monocytes % (Manual) Abs Neuts (Manual) Lymphocytes # (Manual) Monocytes # (Manual) Toxic Vacuolation Dohle Bodies Platelet Estimate Plt Morphology Comment RBC Morphology [place] Cells VBG pH VBG pCO2 VBG pO2 VBG HCO3 VBG O2 Saturation VBG Base Excess Anion Gap Estim Creat Clear Calc Estimated GFR POC Glucose 131 H Random Glucose Osmolality Lactic Acid Calcium Magnesium Total Bilirubin Direct Bilirubin AST ALT Alkaline Phosphatase Total Protein Albumin Triglycerides Cholesterol LDL Cholesterol, Calc HDL Cholesterol Urine Color Urine Appearance Urine pH Ur Specific [place] Urine Protein Urine Glucose (UA) Urine Ketones Urine Blood Urine Nitrite Ur Leukocyte Esterase Urine RBC Urine WBC Ur Squamous Epith Cells Urine Bacteria Hyaline Casts Urine Osmolality Ur Random Sodium Ur Random Potassium Ur Random Chloride Influenza Type A (PCR) Influenza Type B (PCR) RSV RNA Qual (PCR) SARS-CoV-2 RNA (RT-PCR) Assessment and Plan (1) Sepsis: Status: Acute (2) Pneumonia: Qualifiers: Laterality: bilateral Lung location: lower lobe of lung Pneumonia type: due to unspecified organism Qualified Code(s): J18.9 - Pneumonia, unspecified organism Status: Acute (3) Acute hyponatremia: Status: Acute (4) MOISES (acute kidney injury): Status: Acute (5) Hypomagnesemia: Status: Acute (6) Cholelithiasis: Qualifiers: Biliary obstruction: without biliary obstruction Cholecystitis presence: without cholecystitis Cholelithiasis location: gallbladder Qualified Code(s): K80.20 - Calculus of gallbladder without cholecystitis without obstruction Status: Acute (7) Diarrhea: Status: Acute (8) Metabolic acidosis: Status: Acute (9) Elevated LFTs: Status: Acute (10) Inguinal hernia: Qualifiers: Laterality: unilateral Obstruction and gangrene presence: without obstruction or gangrene Recurrence: not specified as recurrent Qualified Code(s): K40.90 - Unilateral inguinal hernia, without obstruction or gangrene, not specified as recurrent Status: Acute (11) Hilar adenopathy: Status: Acute Plan Patient is a 74-year-old male with a past medical history significant for insulin-dependent diabetes, HTN, ARUNA, HLD, tremor, reported to the ED due to dizziness, congestion, tactile fever and diarrhea for the past week. Workup negative for COVID/flu/RSV. Chest CT with multifocal pneumonia, labs and vitals significant for sepsis. Abdominopelvic CT with moderate distended gallbladder, no abdominal pain, HIDA scan ordered. Labs also significant for MOISES, hyponatremia, hypomagnesemia. Sepsis secondary to multifocal pneumonia - WBC 29.6, tachycardic, lactic acid normal, blood cultures x2 pending, not severe sepsis - chest CT with right lower lobe consolidation, additional small multifocal consolidations are noted within the right upper and left lower lobes. Findings are consistent with multifocal pneumonia. Mild right hilar lymphadenopathy, likely reactive in nature. - COVID/flu/RSV negative - check urine legionella due to diarrhea with pneumonia - started on ceftriaxone and azithromycin in ED, continue - started on LR 50 cc/HR for hyponatremia, deferred fluid bolus for sepsis at this time - follow CBC and CMP Hypovolemic hyponatremia - secondary to poor p.o. intake and diarrhea - likely cause for dizziness - sodium 121 - urine sodium normal, urine osmolality low - head CT negative - LR 50 cc/hr - check BMP at midnight and reassess fluids - nephrology consult Diarrhea - labs significant for metabolic acidosis, MOISES with electrolyte abnormalities secondary to dehydration - no diarrhea currently here - stool studies including C diff and GI panel - abdominopelvic CT with no acute findings. cholelithiasis with moderately distended gallbladder, correlate with NPO status. Moderate size right inguinal hernia containing partial herniation of the cecum. No evidence of bowel obstruction. Mild prostatomegaly with moderately distended urinary bladder periods severe multilevel spondylosis of the lumbar spine with moderate levoscoliosis at L3. - monitor CBC and CMP Elevated LFTs/distended gallbladder - HIDA scan ordered - AST 98, ALT 51, alk-phos 142 bilirubin normal - patient not having any pain - consider GI consultation pending HIDA scan results MOISES - likely secondary to dehydration and diabetes medication - creatinine 3.36 - no acute findings on abdominopelvic CT - nephrology consult as above - monitor creatinine Hypomagnesemia - likely secondary to diarrhea - magnesium 1.1, given 4 g IV in ED - recheck magnesium tomorrow Hilar adenopathy, incidental finding on CT - likely reactive to pneumonia - follow-up outpatient for possible repeat imaging Inguinal hernia - no abd pain - not incarcerated and no bowel obstruction - recommend outpt f/u Insulin-dependent diabetes - sliding scale insulin - diabetic diet - reduced dose of Lantus, 4 units nightly, home dose 6 units nightly HTN - continue home meds when appropriate Iron-deficiency anemia - H&H stable, 11.7/32.6 - monitor CBC HLD -continue home meds Full code VTE prophylaxis: Lovenox Patient with sepsis secondary to multifocal pneumonia complicated by hyponatremia, metabolic acidosis and MOISES, requiring admission for at least 2 midnights stay for IV antibiotics, fluids, monitoring and specialized consultation. Quality Stroke Does the patient have a stroke diagnosis?: No VTE Prior VTE?: No VTE Risk Level:: Medical - moderate - high VTE Device Contraindication: Treatment Not Indicated VTE Drug Contraindication: N/A - Med Ordered
[2024-06-16] MEDS: Lactated Ringers 1,000 ML 50 ML IVCONT (21:10)
[2024-06-16] MEDS: Enoxaparin Sodium 30 MG/0.3 ML SYRINGE SUBCUT (21:45)
[2024-06-17 00:58] LABS: Anion Gap 17 (12-20); Blood Urea Nitrogen 53 mg/dL (9-16); Calcium 8.5 mg/dL (8.4-10.2); Carbon Dioxide 15 mmol/L (22-29); Chloride 99 mmol/L (96-108); Creatinine Clr Calc Pharmacy 21.7; Estimated Glomerular Filt Rate 27; Glucose Random 145 mg/dL (60-115); Potassium 3.9 mmol/L (3.3-5.1); Sodium 127 mmol/L (135-145)
[2024-06-17 01:23] VITALS: BP 124/69; PULSE 103; RESP 18; TEMP 37.3; O2SAT 95
--- NOTE | 2024-06-17 01:26 | PC.NURSE ---
[place] text received from Chantelle Quinteros to hold fluids at this time and re check labs in two hours. LR paused.
[2024-06-17] MEDS: Acetaminophen 325 MG TABLET 650 MG PO (01:35)
[2024-06-17 04:50] LABS: Hematocrit 31.7 % (42.0-52.0); Hemoglobin 11.1 g/dl (14.0-18.0); Mean Corpuscular Hemoglobin 31.3 pg (27.0-33.0); Mean Corpuscular Volume 89.3 fL (80.0-98.0); Mean Platelet Volume 9.9 fL (9.4-12.4); Platelet Count 272 X10*3/uL (160-400); Red Blood Count 3.55 X10*6/uL (4.60-5.80); Red Cell Distribution Width 12.7 % (11.0-16.0); WBC ABN SCTR FOR CBC 1
[2024-06-17 04:54] LABS: White Blood Count 33.3 X10*3/uL (4.8-10.8)
[2024-06-17 05:07] LABS: Alanine Aminotransferase 48 U/L (0-40); Albumin Level 2.8 g/dL (3.5-5.0); Alkaline Phosphatase 148 U/L (39-117); Anion Gap 17 (12-20); Aspartate Amino Transferase 83 U/L (5-37); Bilirubin Total 0.2 mg/dL (0.0-1.0); Blood Urea Nitrogen 55 mg/dL (9-16); Calcium 8.6 mg/dL (8.4-10.2); Carbon Dioxide 17 mmol/L (22-29); Chloride 99 mmol/L (96-108); Estimated Glomerular Filt Rate 30; Glucose Random 116 mg/dL (60-115); Magnesium 2.2 mg/dL (1.6-2.6); Potassium 3.9 mmol/L (3.3-5.1); Sodium 129 mmol/L (135-145); Total Protein 6.7 g/dL (6.5-8.0)
[2024-06-17 05:10] LABS: Band Neutrophils Percent 26 % (3-5); Lymphocytes Absolute Manual 0.3 X10*3/uL (1.2-4.9); Lymphocytes Percent Manual 1 % (20-40); Monocytes Percent Manual 3 % (2-11); Neutrophils Percent Manual 70 % (45-73)
[2024-06-17 05:12] LABS: Acanthocytes 1+ (0-2) /OIF; Burr Cells 1+ (0-2) /OIF; Dohle Bodies PRESENT; Large Platelet PRESENT; Platelet Estimate NORMAL (NORMAL); Platelet Morphology Comment NOTED; RBC Morphology NOTED; Schistocytes 1+ (0-2) /OIF; Spherocytes 1+ (0-2) /OIF; Toxic Granulation PRESENT; Toxic Vacuolation PRESENT
--- NOTE | 2024-06-17 05:15 | PM.EVENT ---
Event Note Date of Service: 06/17/24 Event Note: following sodium throughout night, increased from 121 at 14:15 yesterday to 127 at 01:00 this morning. discontinued LR and rechecked 3 hours later. sodium now 129. start D5W @50ml/hr. continue to follow sodium level. of note, WBC also increased from 29.6 to 33.3. on ceftriaxone and azithromycin for sepsis due to multifocal pneumonia. IV fluids as above. Time Spent With Patient Time: Total time managing care of this patient today ____ minutes.
[2024-06-17] MEDS: Dextrose 5 % 1,000 ML 50 ML IVCONT (05:55)
[2024-06-17 05:56] VITALS: BP 103/59; PULSE 91; RESP 16; TEMP 36.9; O2SAT 92
[2024-06-17 07:15] LABS: Glucose, Whole Blood 138 mg/dL (60-115)
[2024-06-17] MEDS: 0.9 % Sodium Chloride Flush 3 ML SYRINGE IVFLUSH ×2 (08:09→17:07)
[2024-06-17 08:25] LABS: Hematocrit 33.9 % (42.0-52.0); Mean Corpuscular HGB Conc 35.4 g/dl (31.0-36.0); Mean Corpuscular Hemoglobin 31.9 pg (27.0-33.0); Mean Corpuscular Volume 90.2 fL (80.0-98.0); Mean Platelet Volume 10.1 fL (9.4-12.4); Platelet Count 255 X10*3/uL (160-400); Red Blood Count 3.76 X10*6/uL (4.60-5.80); Red Cell Distribution Width 13.1 % (11.0-16.0)
[2024-06-17 08:28] LABS: White Blood Count 32.3 X10*3/uL (4.8-10.8)
[2024-06-17 08:36] LABS: Anion Gap 16 (12-20); Blood Urea Nitrogen 52 mg/dL (9-16); Carbon Dioxide 19 mmol/L (22-29); Chloride 96 mmol/L (96-108); Creatinine Clr Calc Pharmacy 23.7; Estimated Glomerular Filt Rate 30; Glucose Random 145 mg/dL (60-115); Potassium 4.1 mmol/L (3.3-5.1); Sodium 127 mmol/L (135-145)
[2024-06-17 10:28] VITALS: BP 149/75; PULSE 92; RESP 18; TEMP 36.4; O2SAT 95; BMI 19.0
[2024-06-17 10:44] LABS: Glucose, Whole Blood 228 mg/dL (60-115)
--- NOTE | 2024-06-17 11:04 | P.PNIM_ITS ---
Subjective Subjective Date of Service: 06/17/24 Review of Systems Follow up sepsis, PNA Physical Exam 2 Vital Signs: Vital Signs: Last Vital Signs Temp 97.5 F 06/17/24 10:28 Pulse 92 06/17/24 10:28 Resp 18 06/17/24 10:28 BP 149/75 H 06/17/24 10:28 Pulse Ox 95 06/17/24 10:28 O2 Del Method Room Air 06/17/24 10:28 BMI result Body Mass Index 19.0 Appearing in no acute distress lung sounds are clear to auscultation heart regular rate rhythm, clear S1, S2 positive bowel sounds, abdomen is soft, nontender neuro patient is alert x3, no focal deficits Objective Data Active Medications Acetaminophen (Acetaminophen 325 Mg Tablet) 650 mg PO Q6H PRN PRN Reason: Pain, Mild 1-3,fever,headache Last Admin: 06/17/24 01:35 Dose: 650 mg Documented By: LEENA Calcium Carbonate (Calcium Carbonate 750 Mg Tab.Chew) 750 mg PO Q4H PRN PRN Reason: Heartburn Ceftriaxone Sodium (Ceftriaxone Sodium 1 Gm Vial) 1 gm IVPUSH Q24H TAMIE Dextrose (Dextrose 50 % 25 Gm/50 Ml Syringe) 25 gm IVPUSH Q15M PRN; Protocol PRN Reason: per Hypoglycemia Standing Ord. Enoxaparin Sodium (Enoxaparin Sodium 30 Mg/0.3 Ml Syringe) 30 mg SUBCUT Q24H [facility] Last Admin: 06/16/24 21:45 Dose: 30 mg Documented By: LEENA Glucose (Glucose Gel 15 Gm Gel..Gram.) 15 gm PO Q15M PRN; Protocol PRN Reason: per Hypoglycemia Standing Ord. Azithromycin 500 mg/ Sodium (Chloride) 250 mls @ 125 mls/hr IV Q24H TAMIE Dextrose (D5w) 1,000 mls @ 50 mls/hr IVCONT .Q20H [facility] Last Admin: 06/17/24 05:55 Dose: 50 mls/hr Documented By: LEENA Insulin Glargine (Insulin Glargine,Hum.Rec.Anlog 100 Unit/Ml 10 Ml Vial) 4 unit SUBCUT BEDTIME [facility] Insulin Human Lispro (Insulin Lispro 100 Unit/Ml 3 Ml Vial) 0 unit SUBCUT QIDACHS [facility]; Protocol Last Admin: 06/17/24 08:09 Dose: Not Given Documented By: BILLY Non-Admin Reason: See Note Magnesium Hydroxide (Milk Of Magnesia 30 Ml Oral.Susp) 30 ml PO DAILY PRN PRN Reason: Constipation Melatonin (Melatonin 3 Mg Tablet) 6 mg PO BEDTIME PRN PRN Reason: Insomnia Ondansetron HCl (Ondansetron Hcl 4 Mg/2 Ml Vial) 4 mg IVPUSH Q8H PRN PRN Reason: Nausea and Vomiting Sodium Chloride (0.9 % Sodium Chloride Flush 3 Ml Syringe) 3 ml IVFLUSH QSHIFT [facility] Last Admin: 06/17/24 08:09 Dose: 3 ml Documented By: BILLY Labs 06/17/24 08:04 06/17/24 08:04 Labs: Laboratory Results - last 24 hr 06/16/24 06/16/24 06/16/24 14:18 15:21 15:50 MCV 89.1 MCH 32.0 MCHC 35.9 RDW 13.0 Plt Count 222 MPV 9.7 Immature Gran % (Auto) Cancelled Neut % (Auto) Cancelled Lymph % (Auto) Cancelled Petroleum % (Auto) Cancelled Eos % (Auto) Cancelled Baso % (Auto) Cancelled Lymph # (Auto) Cancelled Petroleum # (Auto) Cancelled Eos # (Auto) Cancelled Baso # (Auto) Cancelled Abs Immat Gran (auto) Cancelled Absolute Neuts (auto) Cancelled Absolute Nucleated RBC 0.000 Nucleated RBC % (auto) 0.0 Neutrophils % (Manual) 93 H Band Neutrophils % 3 Lymphocytes % (Manual) 1 L Monocytes % (Manual) 3 Abs Neuts (Manual) 28.4 H Lymphocytes # (Manual) 0.3 L Monocytes # (Manual) 0.9 Toxic Granulation Toxic Vacuolation PRESENT Dohle Bodies PRESENT Platelet Estimate NORMAL Large Platelets Plt Morphology Comment NORMAL RBC Morphology NOTED Spherocytes Lucrecia Cells 3+ (>5) Acanthocytes (Spur) Schistocytes VBG pH VBG pCO2 VBG pO2 VBG HCO3 VBG O2 Saturation VBG Base Excess Anion Gap 19 Estim Creat Clear Calc 15.3 Estimated GFR 18 POC Glucose Random Glucose 117 H Osmolality Lactic Acid 1.0 Calcium 8.3 L Magnesium 1.1 L* Total Bilirubin 0.3 Direct Bilirubin 0.1 AST 98 H ALT 51 H Alkaline Phosphatase 142 H Total Protein 7.2 Albumin 2.8 L Triglycerides 83 Cholesterol 57 LDL Cholesterol, Calc 28 HDL Cholesterol 13 L Urine Color Urine Appearance Urine pH Ur Specific [place] Urine Protein Urine Glucose (UA) Urine Ketones Urine Blood Urine Nitrite Ur Leukocyte Esterase Urine RBC Urine WBC Ur Squamous Epith Cells Urine Bacteria Hyaline Casts Urine Osmolality Ur Random Sodium Ur Random Potassium Ur Random Chloride Influenza Type A (PCR) NEGATIVE Influenza Type B (PCR) NEGATIVE RSV RNA Qual (PCR) NEGATIVE SARS-CoV-2 RNA (RT-PCR) NEGATIVE 06/16/24 06/16/24 06/16/24 15:58 16:56 17:29 MCV MCH MCHC RDW Plt Count MPV Immature Gran % (Auto) Neut % (Auto) Lymph % (Auto) Petroleum % (Auto) Eos % (Auto) Baso % (Auto) Lymph # (Auto) Petroleum # (Auto) Eos # (Auto) Baso # (Auto) Abs Immat Gran (auto) Absolute Neuts (auto) Absolute Nucleated RBC Nucleated RBC % (auto) Neutrophils % (Manual) Band Neutrophils % Lymphocytes % (Manual) Monocytes % (Manual) Abs Neuts (Manual) Lymphocytes # (Manual) Monocytes # (Manual) Toxic Granulation Toxic Vacuolation Dohle Bodies Platelet Estimate Large Platelets Plt Morphology Comment RBC Morphology Spherocytes [place] Cells Acanthocytes (Spur) Schistocytes VBG pH 7.31 L VBG pCO2 37 VBG pO2 40 VBG HCO3 19 L VBG O2 Saturation 63.0 VBG Base Excess -6.5 Anion Gap Estim Creat Clear Calc Estimated GFR POC Glucose Random Glucose Osmolality 283 Lactic Acid Calcium Magnesium Total Bilirubin Direct Bilirubin AST ALT Alkaline Phosphatase Total Protein Albumin Triglycerides Cholesterol LDL Cholesterol, Calc HDL Cholesterol Urine Color Yellow Urine Appearance Clear Urine pH 5.0 Ur Specific [place] 1.020 Urine Protein Trace Urine Glucose (UA) >=1000 H Urine Ketones Negative Urine Blood Negative Urine Nitrite Negative Ur Leukocyte Esterase Negative Urine RBC 3-5 H Urine WBC 0-5 Ur Squamous Epith Cells 0-2 Urine Bacteria None Seen Hyaline Casts 0-2 Urine Osmolality 305 L Ur Random Sodium < 20.0 Ur Random Potassium 23.7 Ur Random Chloride < 20.0 Influenza Type A (PCR) Influenza Type B (PCR) RSV RNA Qual (PCR) SARS-CoV-2 RNA (RT-PCR) 06/16/24 06/17/24 06/17/24 20:34 00:42 04:06 MCV 89.3 MCH 31.3 MCHC 35.0 RDW 12.7 Plt Count 272 MPV 9.9 Immature Gran % (Auto) Cancelled Neut % (Auto) Cancelled Lymph % (Auto) Cancelled Petroleum % (Auto) Cancelled Eos % (Auto) Cancelled Baso % (Auto) Cancelled Lymph # (Auto) Cancelled Petroleum # (Auto) Cancelled Eos # (Auto) Cancelled Baso # (Auto) Cancelled Abs Immat Gran (auto) Cancelled Absolute Neuts (auto) Cancelled Absolute Nucleated RBC 0.000 Nucleated RBC % (auto) 0.0 Neutrophils % (Manual) 70 Band Neutrophils % 26 H Lymphocytes % (Manual) 1 L Monocytes % (Manual) 3 Abs Neuts (Manual) 32.0 H Lymphocytes # (Manual) 0.3 L Monocytes # (Manual) 1.0 Toxic Granulation PRESENT Toxic Vacuolation PRESENT Dohle Bodies PRESENT Platelet Estimate NORMAL Large Platelets PRESENT Plt Morphology Comment NOTED RBC Morphology NOTED Spherocytes 1+ (0-2) Lucrecia Cells 1+ (0-2) Acanthocytes (Spur) 1+ (0-2) Schistocytes 1+ (0-2) VBG pH VBG pCO2 VBG pO2 VBG HCO3 VBG O2 Saturation VBG Base Excess Anion Gap 17 17 Estim Creat Clear Calc 21.7 24.0 Estimated GFR 27 30 POC Glucose 131 H Random Glucose 145 H 116 H Osmolality Lactic Acid Calcium 8.5 8.6 Magnesium 2.2 Total Bilirubin 0.2 Direct Bilirubin AST 83 H ALT 48 H Alkaline Phosphatase 148 H Total Protein 6.7 Albumin 2.8 L Triglycerides Cholesterol LDL Cholesterol, Calc HDL Cholesterol Urine Color Urine Appearance Urine pH Ur Specific [place] Urine Protein Urine Glucose (UA) Urine Ketones Urine Blood Urine Nitrite Ur Leukocyte Esterase Urine RBC Urine WBC Ur Squamous Epith Cells Urine Bacteria Hyaline Casts Urine Osmolality Ur Random Sodium Ur Random Potassium Ur Random Chloride Influenza Type A (PCR) Influenza Type B (PCR) RSV RNA Qual (PCR) SARS-CoV-2 RNA (RT-PCR) 06/17/24 06/17/24 06/17/24 07:11 08:04 10:38 MCV 90.2 MCH 31.9 MCHC 35.4 RDW 13.1 Plt Count 255 MPV 10.1 Immature Gran % (Auto) Neut % (Auto) Lymph % (Auto) Petroleum % (Auto) Eos % (Auto) Baso % (Auto) Lymph # (Auto) Petroleum # (Auto) Eos # (Auto) Baso # (Auto) Abs Immat Gran (auto) Absolute Neuts (auto) Absolute Nucleated RBC 0.000 Nucleated RBC % (auto) 0.0 Neutrophils % (Manual) Band Neutrophils % Lymphocytes % (Manual) Monocytes % (Manual) Abs Neuts (Manual) Lymphocytes # (Manual) Monocytes # (Manual) Toxic Granulation Toxic Vacuolation Dohle Bodies Platelet Estimate Large Platelets Plt Morphology Comment RBC Morphology Spherocytes [place] Cells Acanthocytes (Spur) Schistocytes VBG pH VBG pCO2 VBG pO2 VBG HCO3 VBG O2 Saturation VBG Base Excess Anion Gap 16 Estim Creat Clear Calc 23.7 Estimated GFR 30 POC Glucose 138 H 228 H Random Glucose 145 H Osmolality Lactic Acid Calcium 9.0 Magnesium Total Bilirubin Direct Bilirubin AST ALT Alkaline Phosphatase Total Protein Albumin Triglycerides Cholesterol LDL Cholesterol, Calc HDL Cholesterol Urine Color Urine Appearance Urine pH Ur Specific [place] Urine Protein Urine Glucose (UA) Urine Ketones Urine Blood Urine Nitrite Ur Leukocyte Esterase Urine RBC Urine WBC Ur Squamous Epith Cells Urine Bacteria Hyaline Casts Urine Osmolality Ur Random Sodium Ur Random Potassium Ur Random Chloride Influenza Type A (PCR) Influenza Type B (PCR) RSV RNA Qual (PCR) SARS-CoV-2 RNA (RT-PCR) Assessment and Plan (1) Pneumonia: Status: Acute Plan 74-year-old male with a past medical history significant for insulin-dependent diabetes, HTN, ARUNA, HLD, tremor, reported to the ED due to dizziness, congestion, tactile fever and diarrhea for the past week. Workup negative for COVID/flu/RSV. Chest CT with multifocal pneumonia, labs and vitals significant for sepsis. Abdominopelvic CT with moderate distended gallbladder, no abdominal pain, HIDA scan ordered. Labs also significant for MOISES, hyponatremia, hypomagnesemia. Sepsis secondary to multifocal pneumonia WBC 29.6, tachycardic, lactic acid normal, blood cultures x2 pending, not severe sepsis chest CT with right lower lobe consolidation, additional small multifocal consolidations are noted within the right upper and left lower lobes. Findings are consistent with multifocal pneumonia. Mild right hilar lymphadenopathy, likely reactive in nature. COVID/flu/RSV negative check urine legionella due to diarrhea with pneumonia ceftriaxone and azithromycin Hypovolemic hyponatremia secondary to poor p.o. intake and diarrhea likely cause for dizziness sodium 121, 129, 127 urine sodium normal, urine osmolality low head CT negative LR 50 cc/hr tx to D5W check BMP at midnight and reassess fluids nephrology consult Diarrhea labs significant for metabolic acidosis, MOISES with electrolyte abnormalities secondary to dehydration no diarrhea currently here stool studies including C diff and GI panel abdominopelvic CT with no acute findings. monitor CBC and CMP Elevated LFTs/distended gallbladder HIDA scan ordered AST 98, ALT 51, alk-phos 142 bilirubin normal patient not having any pain consider GI consultation pending HIDA scan results MOISES likely secondary to dehydration and diabetes medication creatinine 3.36 no acute findings on abdominopelvic CT nephrology consult as above monitor creatinine Hypomagnesemia repleted likely secondary to diarrhea magnesium 1.1, now 2.2 Hilar adenopathy, incidental finding on CT likely reactive to pneumonia follow-up outpatient for possible repeat imaging Inguinal hernia no abd pain not incarcerated and no bowel obstruction recommend outpt f/u Insulin-dependent diabetes sliding scale insulin diabetic diet reduced dose of Lantus, 4 units nightly, home dose 6 units nightly HTN continue home meds when appropriate Iron-deficiency anemia H&H stable, 11.7/32.6 monitor CBC HLD continue home meds Full code VTE prophylaxis: Lovenox Patient with sepsis secondary to multifocal pneumonia complicated by hyponatremia, metabolic acidosis and MOISES, requiring admission for at least 2 midnights stay for IV antibiotics, fluids, monitoring and specialized consultation. Quality Stroke Does the patient have a stroke diagnosis?: No VTE Prior VTE?: No VTE Risk Level:: Medical - moderate - high VTE Device Contraindication: Treatment Not Indicated VTE Drug Contraindication: N/A - Med Ordered
--- NOTE | 2024-06-17 11:48 | PM.EVENT ---
Event Note Date of Service: 06/17/24 Event Note: Chart reviewed. Hyponatremia Urine sodium less than 20. Recommendation stopped chlorthalidone and lisinopril. Cautious IV hydration with normal saline at 75 cc/hour x1 L. Monitor serum sodium every 2 hours to avoid rapid correction. Full consult to follow Time Spent With Patient Time: Total time managing care of this patient today ____ minutes.
--- NOTE | 2024-06-17 11:49 | PHA.MEDREC ---
Addendum entered by Juanito Busby RPh 06/17/24 12:22: Med rec was reviewed by [facility]. Original Note: Pharmacy Consult ? Medication Reconciliation Pharmacy has completed the medication reconciliation. Spoke with patient who was not sure what he was taking for medications at this time but stated he gets all his medicaitons from the [facility] in [place] and [place]. I got a list from the [facility] I was able to utilize and confirm the med rec with. Insulin glargine-yfgn 100 unit/mL (3 mL) was on the list, patient was able to confirm he injects 6 units at bedtime of that medication. Patient stated he has not been able to take any medications in at least 2 days.
[2024-06-17 12:39] LABS: Sodium 126 mmol/L (135-145)
--- NOTE | 2024-06-17 14:11 | MHC.CM.PN ---
IMM 06/17. Pt self-care, lives at home with his and son. Pt is legally blind and uses a blind stick . Education provided on HCP, new HCP completed with pt, now on file. Pt states [facility], but doesn't know their name. Pts can transport him home at discharge.
[2024-06-17 16:00] VITALS: BP 125/66; PULSE 99; RESP 19; TEMP 36.8; O2SAT 95
[2024-06-17 16:48] LABS: Glucose, Whole Blood 179 mg/dL (60-115)
[2024-06-17] MEDS: Insulin Lispro 100 UNIT/ML 3 ML VIAL SUBCUT ×2 (17:07→20:26)
[2024-06-17] MEDS: cefTRIAXone sodium 1 GM VIAL IVPUSH (17:07)
[2024-06-17] MEDS: Azithromycin 500 MG in 0.9 % Sodium Chloride 250 ML 125 MG IV (17:08)
[2024-06-17 19:27] VITALS: BP 105/53; PULSE 99; RESP 20; TEMP 37.2; O2SAT 91
[2024-06-17 19:54] LABS: Glucose, Whole Blood 164 mg/dL (60-115)
[2024-06-17 20:15] LABS: Sodium 128 mmol/L (135-145)
[2024-06-17] MEDS: Insulin Glargine,Hum.rec.anlog 100 UNIT/ML 10 ML VIAL SUBCUT (20:26)
[2024-06-17] MEDS: Enoxaparin Sodium 30 MG/0.3 ML SYRINGE SUBCUT (20:26)
[2024-06-17] MEDS: Benzonatate 100 MG CAPSULE 200 MG PO (20:37)
[2024-06-17 23:18] VITALS: BP 131/70; PULSE 90; RESP 18; TEMP 37.5; O2SAT 95
[2024-06-18] VITALS (8 sets, daily range): BP systolic 124–149; BP diastolic 67–76; PULSE 76–98; RESP 18–20; TEMP 36–36.9; O2SAT 92–97
[2024-06-18] MEDS: Acetaminophen 325 MG TABLET 650 MG PO ×2 (03:03→18:34)
[2024-06-18 07:08] LABS: Basophils Absolute Auto 0.1 X10*3/uL (0.0-0.2); Basophils Percent Auto 0.2 % (0-2); Eosinophils Percent Auto 0.1 % (0-4); Hematocrit 29.5 % (42.0-52.0); Hemoglobin 10.6 g/dl (14.0-18.0); Imm Gran Abs Auto 0.52 X10*3/uL (0.00-0.03); Imm Gran Pct Auto 2.2 % (0.0-0.4); Lymphocytes Absolute Auto 0.9 X10*3/uL (1.2-4.9); Lymphocytes Percent Auto 3.9 % (20-40); MANUAL DIFF FLAG SCAN; Mean Corpuscular HGB Conc 35.9 g/dl (31.0-36.0); Mean Corpuscular Hemoglobin 31.5 pg (27.0-33.0); Mean Corpuscular Volume 87.8 fL (80.0-98.0); Mean Platelet Volume 9.6 fL (9.4-12.4); Monocytes Absolute Auto 1.4 X10*3/uL (0.1-1.2); Neutrophils Absolute Auto 20.3 x10*3/uL (2.0-8.3); Neutrophils Percent Auto 87.6 % (45-73); Platelet Count 224 X10*3/uL (160-400); Red Blood Count 3.36 X10*6/uL (4.60-5.80); SCAN SMEAR FLAG 1; White Blood Count 23.2 X10*3/uL (4.8-10.8)
[2024-06-18 07:18] LABS: Glucose, Whole Blood 138 mg/dL (60-115)
[2024-06-18 07:20] LABS: Alanine Aminotransferase 51 U/L (0-40); Albumin Level 2.5 g/dL (3.5-5.0); Alkaline Phosphatase 152 U/L (39-117); Anion Gap 16 (12-20); Aspartate Amino Transferase 95 U/L (5-37); Bilirubin Total 0.2 mg/dL (0.0-1.0); Blood Urea Nitrogen 43 mg/dL (9-16); Calcium 8.6 mg/dL (8.4-10.2); Carbon Dioxide 20 mmol/L (22-29); Chloride 97 mmol/L (96-108); Creatinine Clr Calc Pharmacy 34.4; Estimated Glomerular Filt Rate 50; Glucose Random 138 mg/dL (60-115); Magnesium 1.8 mg/dL (1.6-2.6); Potassium 3.6 mmol/L (3.3-5.1); Sodium 129 mmol/L (135-145); Total Protein 6.4 g/dL (6.5-8.0)
[2024-06-18 08:07] LABS: SLIDE REVIEW VERIFIED
[2024-06-18] MEDS: 0.9 % Sodium Chloride Flush 3 ML SYRINGE IVFLUSH ×2 (08:07→20:38)
[2024-06-18] MEDS: amLODIPine Besylate 5 MG TABLET PO (08:47)
[2024-06-18] MEDS: 0.9 % Sodium Chloride 1,000 ML 75 ML IVCONT (08:49)
[2024-06-18 10:57] LABS: Glucose, Whole Blood 188 mg/dL (60-115)
--- NOTE | 2024-06-18 11:35 | P.CONNP_ITS ---
History of Present Illness Reason for Consult Consult date: 06/18/24 Reason for consult: MOISES Chief Complaint Chief complaint: Sepsis, Pneumonia, hyponatremia, MOISES History of Present Illness Narrative: 74-year-old male with a past medical history significant for insulin-dependent diabetes, HTN, ARUNA, HLD, tremor, reported to the ED due to dizziness, congestion, tactile fever and diarrhea for the past week. He reports he has not been able to eat or drink much at all for the past few days. His has also been experiencing diarrhea. He denies any chest pain, shortness of breath or abdominal pain. No urinary symptoms including hematuria, dysuria or frequency. He also denies any nausea or vomiting. He is experiencing diarrhea mostly in the morning but has been unable to tolerate much by mouth because of this. He has a history of CKD. Usually follows with Dr. Costello. He has a history of MOISES and hyponatremia in the past as well. [facility] Past Medical History Medical History Diabetes HTN (hypertension) Hyperlipidemia Peripheral neuropathy Surgical History Surgical History History of colonoscopy Social History Social History Household Members: Family Housing: House Patient Tobacco Use Status: Former Tobacco user Cigarettes Per Day: 1 Smoked in Last 30 Days: No Use of substances other than those prescribed or required for medical reasons: No Currently Displaying Signs/Symptoms of Drug Intoxication Withdrawal: No Have you been hit, kicked, punched, or otherwise hurt by someone within the past year? If so, by whom?: No Do you feel safe in your current relationship?: No Current Relationship Is there a partner from a previous relationship who is making you feel unsafe now?: No Advance Directives: Yes Advance Directives on File: Yes Advance Directives Date on File: 05/05/19 Do you have a plan to hurt others: No Plan Recently lost weight without trying: No Nutrition Risks: No Nutritional Risk service: No Meds Allergies Allergy/AdvReac Type Severity Reaction Status Date / Time No Known Allergies Allergy Verified 06/16/24 13:56 Active Medications: Current Medications Acetaminophen (Acetaminophen 325 Mg Tablet) 650 mg PO Q6H PRN PRN Reason: Pain, Mild 1-3,fever,headache Last Admin: 06/18/24 03:03 Dose: 650 mg Amlodipine Besylate (Amlodipine Besylate 5 Mg Tablet) 5 mg PO DAILY [facility]; Protocol Last Admin: 06/18/24 08:47 Dose: 5 mg Benzonatate (Benzonatate 100 Mg Capsule) 200 mg PO TID PRN PRN Reason: Cough Last Admin: 06/17/24 20:37 Dose: 200 mg Calcium Carbonate (Calcium Carbonate 750 Mg Tab.Chew) 750 mg PO Q4H PRN PRN Reason: Heartburn Ceftriaxone Sodium (Ceftriaxone Sodium 1 Gm Vial) 1 gm IVPUSH Q24H [facility] Last Admin: 06/17/24 17:07 Dose: 1 gm Dextrose (Dextrose 50 % 25 Gm/50 Ml Syringe) 25 gm IVPUSH Q15M PRN; Protocol PRN Reason: per Hypoglycemia Standing Ord. Enoxaparin Sodium (Enoxaparin Sodium 40 Mg/0.4 Ml Syringe) 40 mg SUBCUT Q24H [facility] Gabapentin (Gabapentin 300 Mg Capsule) 300 mg PO TID [facility] Last Admin: 06/18/24 08:47 Dose: Not Given Glucose (Glucose Gel 15 Gm Gel..Gram.) 15 gm PO Q15M PRN; Protocol PRN Reason: per Hypoglycemia Standing Ord. Azithromycin 500 mg/ Sodium (Chloride) 250 mls @ 125 mls/hr IV Q24H [facility] Last Infusion: 06/17/24 19:36 Dose: Infused Sodium Chloride (Ns) 1,000 mls @ 75 mls/hr IVCONT .[id number] [facility] Last Admin: 06/18/24 08:49 Dose: 75 mls/hr Insulin Glargine (Insulin Glargine,Hum.Rec.Anlog 100 Unit/Ml 10 Ml Vial) 4 unit SUBCUT BEDTIME [facility] Last Admin: 06/17/24 20:26 Dose: 4 unit Insulin Human Lispro (Insulin Lispro 100 Unit/Ml 3 Ml Vial) 0 unit SUBCUT QIDACHS [facility]; Protocol Last Admin: 06/18/24 08:00 Dose: Not Given Magnesium Hydroxide (Milk Of Magnesia 30 Ml Oral.Susp) 30 ml PO DAILY PRN PRN Reason: Constipation Melatonin (Melatonin 3 Mg Tablet) 6 mg PO BEDTIME PRN PRN Reason: Insomnia Omeprazole (Omeprazole 20 Mg Capsule.Dr) 20 mg PO DAILY@0630 [facility] Ondansetron HCl (Ondansetron Hcl 4 Mg/2 Ml Vial) 4 mg IVPUSH Q8H PRN PRN Reason: Nausea and Vomiting Sodium Chloride (0.9 % Sodium Chloride Flush 3 Ml Syringe) 3 ml IVFLUSH QSHIFT [facility] Last Admin: 06/18/24 08:07 Dose: 3 ml Home Medications ?Medication ?Instructions ?Recorded ?Confirmed ?Last Taken ?Type ferrous sulfate 325 mg (65 mg 325 mg PO DAILY 01/22/20 06/17/24 06/15/24 History iron) tablet lisinopril 20 mg tablet 20 mg PO DAILY 01/22/20 06/17/24 06/15/24 History primidone 50 mg tablet 50 mg PO BEDTIME 01/22/20 06/17/24 06/15/24 History amlodipine 5 mg tablet 5 mg PO DAILY 06/17/24 06/17/24 06/15/24 History atorvastatin 80 mg tablet 80 mg PO DAILY 06/17/24 06/17/24 06/15/24 History empagliflozin 25 mg tablet 25 mg PO DAILY 06/17/24 06/17/24 06/15/24 History (Jardiance) ezetimibe 10 mg tablet 10 mg PO DAILY 06/17/24 06/17/24 06/15/24 History fluticasone propionate 50 50 mcg inhalation Q10D 06/17/24 06/17/24 Unknown History mcg/actuation blister powder for inhalation gabapentin 300 mg capsule 300 mg PO TID 06/17/24 06/17/24 06/15/24 History glucose 4 gram chewable tablet 16 g PO NEEDED PRN Low Blood 06/17/24 06/17/24 06/15/24 History Sugar insulin glargine-yfgn 100 unit/mL 6 unit subcut BEDTIME 06/17/24 06/17/24 06/15/24 History (3 mL) subcutaneous pen magnesium oxide 250 mg PO DAILY 06/17/24 06/17/24 06/15/24 History omeprazole 20 mg capsule,delayed 20 mg PO DAILY@0630 06/17/24 06/17/24 06/15/24 History release sitagliptin phosphate 100 mg 100 mg PO DAILY 06/17/24 06/17/24 06/15/24 History tablet (Januvia) Physical Exam Vital Signs: Last Vital Signs Temp 98.5 F 06/18/24 11:19 Pulse 86 06/18/24 11:19 Resp 20 06/18/24 11:19 BP 145/76 H 06/18/24 11:19 Pulse Ox 97 06/18/24 11:19 O2 Del Method Room Air 06/18/24 11:19 BMI result Body Mass Index 19.0 Appearing in no acute distress lung sounds are clear to auscultation heart regular rate rhythm, clear S1, S2 positive bowel sounds, abdomen is soft, nontender neuro patient is alert x3, no focal deficits Results Lab Results 06/18/24 06:38 06/18/24 06:38 Lab results: Chemistry 06/16/24 06/17/24 06/17/24 14:18 00:42 04:06 Sodium 121 L 127 L 129 L Potassium 4.7 3.9 3.9 Carbon Dioxide 16 L 15 L 17 L BUN 64 H 53 H 55 H Creatinine 3.36 H 2.37 H 2.15 H Calcium 8.3 L 8.5 8.6 06/17/24 06/17/24 06/17/24 08:04 12:21 19:46 Sodium 127 L 126 L 128 L Potassium 4.1 Carbon Dioxide 19 L BUN 52 H Creatinine 2.17 H Calcium 9.0 06/18/24 06:38 Sodium 129 L Potassium 3.6 Carbon Dioxide 20 L BUN 43 H Creatinine 1.38 Calcium 8.6 Hematology 06/16/24 06/17/24 06/17/24 14:18 04:06 08:04 WBC 29.6 H 33.3 H* 32.3 H* Hgb 11.7 L 11.1 L 12.0 L Plt Count 222 272 255 06/18/24 06:38 WBC 23.2 H Hgb 10.6 L Plt Count 224 Urinalysis 06/16/24 16:56 Urine Color Yellow Urine Appearance Clear Urine pH 5.0 Ur Specific [place] 1.020 Urine Protein Trace Urine Glucose (UA) >=1000 H Urine Ketones Negative Urine Blood Negative Urine Nitrite Negative Ur Leukocyte Esterase Negative Urine RBC 3-5 H Urine WBC 0-5 Ur Squamous Epith Cells 0-2 Hyaline Casts 0-2 Urine Studies 06/16/24 16:56 Urine Osmolality 305 L Assessment and Plan (1) Metabolic acidosis: Status: Acute (2) MOISES (acute kidney injury): Status: Acute (3) Acute hyponatremia: Status: Acute Plan MOISES due to hypovolemia. He has hypovolemic hyponatremia. Urine sodium was less than 20. He was on chlorthalidone at the time of admission. Recommendations Discontinue chlorthalidone Cautious hydration with isotonic saline. Restrict hypotonic fluids. Correct serum sodium at a rate of 0.5-1 millimole per L/hr and not more than 10 mEq in 24 hours. Renal function should improve with IV hydration. Watch intake and output. We shall follow along with the team Procedures Date of Service Date of Service: 06/18/24
[2024-06-18 12:07] LABS: Sodium 129 mmol/L (135-145)
[2024-06-18 13:44] LABS: Sodium 129 mmol/L (135-145)
--- NOTE | 2024-06-18 13:50 | HO.PM.IMPN ---
Subjective Subjective Date of Service: 06/18/24 Review of Systems Follow up sepsis, PNA , hyponatremia sodium still low no SOB Physical Exam Vital Signs: Vital Signs: Last Vital Signs Temp 98.5 F 06/18/24 11:19 Pulse 86 06/18/24 11:19 Resp 20 06/18/24 11:19 BP 145/76 H 06/18/24 11:19 Pulse Ox 97 06/18/24 11:19 O2 Del Method Room Air 06/18/24 11:19 BMI result Body Mass Index 19.0 Appearing in no acute distress lung sounds are clear to auscultation heart regular rate rhythm, clear S1, S2 positive bowel sounds, abdomen is soft, nontender neuro patient is alert x3, no focal deficits Objective Data Active Medications Acetaminophen (Acetaminophen 325 Mg Tablet) 650 mg PO Q6H PRN PRN Reason: Pain, Mild 1-3,fever,headache Last Admin: 06/18/24 03:03 Dose: 650 mg Documented By: NADIA Amlodipine Besylate (Amlodipine Besylate 5 Mg Tablet) 5 mg PO DAILY [facility]; Protocol Last Admin: 06/18/24 08:47 Dose: 5 mg Documented By: PABLITO Benzonatate (Benzonatate 100 Mg Capsule) 200 mg PO TID PRN PRN Reason: Cough Last Admin: 06/17/24 20:37 Dose: 200 mg Documented By: NADIA Calcium Carbonate (Calcium Carbonate 750 Mg Tab.Chew) 750 mg PO Q4H PRN PRN Reason: Heartburn Ceftriaxone Sodium (Ceftriaxone Sodium 1 Gm Vial) 1 gm IVPUSH Q24H [facility] Last Admin: 06/17/24 17:07 Dose: 1 gm Documented By: AASHISH Dextrose (Dextrose 50 % 25 Gm/50 Ml Syringe) 25 gm IVPUSH Q15M PRN; Protocol PRN Reason: per Hypoglycemia Standing Ord. Enoxaparin Sodium (Enoxaparin Sodium 40 Mg/0.4 Ml Syringe) 40 mg SUBCUT Q24H [facility] Gabapentin (Gabapentin 300 Mg Capsule) 300 mg PO TID [facility] Last Admin: 06/18/24 08:47 Dose: Not Given Documented By: PABLITO Non-Admin Reason: Patient Refused Glucose (Glucose Gel 15 Gm Gel..Gram.) 15 gm PO Q15M PRN; Protocol PRN Reason: per Hypoglycemia Standing Ord. Azithromycin 500 mg/ Sodium (Chloride) 250 mls @ 125 mls/hr IV Q24H [facility] Last Infusion: 06/17/24 19:36 Dose: Infused Documented By: NADIA Sodium Chloride (Ns) 1,000 mls @ 75 mls/hr IVCONT .[id number] [facility] Last Admin: 06/18/24 08:49 Dose: 75 mls/hr Documented By: PABLITO Insulin Glargine (Insulin Glargine,Hum.Rec.Anlog 100 Unit/Ml 10 Ml Vial) 4 unit SUBCUT BEDTIME [facility] Last Admin: 06/17/24 20:26 Dose: 4 unit Documented By: NADIA Insulin Human Lispro (Insulin Lispro 100 Unit/Ml 3 Ml Vial) 0 unit SUBCUT QIDACHS [facility]; Protocol Last Admin: 06/18/24 12:55 Dose: Not Given Documented By: PABLITO Non-Admin Reason: Patient Refused Magnesium Hydroxide (Milk Of Magnesia 30 Ml Oral.Susp) 30 ml PO DAILY PRN PRN Reason: Constipation Melatonin (Melatonin 3 Mg Tablet) 6 mg PO BEDTIME PRN PRN Reason: Insomnia Omeprazole (Omeprazole 20 Mg Capsule.Dr) 20 mg PO DAILY@0630 [facility] Ondansetron HCl (Ondansetron Hcl 4 Mg/2 Ml Vial) 4 mg IVPUSH Q8H PRN PRN Reason: Nausea and Vomiting Sodium Chloride (0.9 % Sodium Chloride Flush 3 Ml Syringe) 3 ml IVFLUSH QSHIFT [facility] Last Admin: 06/18/24 08:07 Dose: 3 ml Documented By: PABLITO Labs 06/18/24 06:38 06/18/24 13:17 Labs: Laboratory Results - last 24 hr 06/17/24 06/17/24 06/18/24 16:44 19:50 06:38 MCV 87.8 MCH 31.5 MCHC 35.9 RDW 13.0 Plt Count 224 MPV 9.6 Immature Gran % (Auto) 2.2 H Neut % (Auto) 87.6 H Lymph % (Auto) 3.9 L [place] % (Auto) 6.0 Eos % (Auto) 0.1 Baso % (Auto) 0.2 Lymph # (Auto) 0.9 L [place] # (Auto) 1.4 H Eos # (Auto) 0.0 Baso # (Auto) 0.1 Abs Immat Gran (auto) 0.52 H Absolute Neuts (auto) 20.3 H Absolute Nucleated RBC 0.000 Nucleated RBC % (auto) 0.0 Smear Tech's Comments VERIFIED Anion Gap 16 Estim Creat Clear Calc 34.4 Estimated GFR 50 POC Glucose 179 H 164 H Random Glucose 138 H Calcium 8.6 Magnesium 1.8 Total Bilirubin 0.2 AST 95 H ALT 51 H Alkaline Phosphatase 152 H Total Protein 6.4 L Albumin 2.5 L 06/18/24 06/18/24 07:11 10:54 MCV MCH MCHC RDW Plt Count MPV Immature Gran % (Auto) Neut % (Auto) Lymph % (Auto) [place] % (Auto) Eos % (Auto) Baso % (Auto) Lymph # (Auto) [place] # (Auto) Eos # (Auto) Baso # (Auto) Abs Immat Gran (auto) Absolute Neuts (auto) Absolute Nucleated RBC Nucleated RBC % (auto) Smear Tech's Comments Anion Gap Estim Creat Clear Calc Estimated GFR POC Glucose 138 H 188 H Random Glucose Calcium Magnesium Total Bilirubin AST ALT Alkaline Phosphatase Total Protein Albumin Microbiology Microbiology Results: Microbiology 06/16/24 15:50 Blood Culture - Preliminary Blood - Venous No growth after 24 hours. 06/16/24 15:50 Blood Culture - Preliminary Blood - Venous No growth after 24 hours. Assessment and Plan (1) Pneumonia: Status: Acute (2) MOISES (acute kidney injury): Status: Acute Plan 74-year-old male with a past medical history significant for insulin-dependent diabetes, HTN, ARUNA, HLD, tremor, reported to the ED due to dizziness, congestion, tactile fever and diarrhea for the past week. Workup negative for COVID/flu/RSV. Chest CT with multifocal pneumonia, labs and vitals significant for sepsis. Abdominopelvic CT with moderate distended gallbladder, no abdominal pain, HIDA scan ordered. Labs also significant for MOISES, hyponatremia, hypomagnesemia. Hypovolemic hyponatremia secondary to poor p.o. intake and diarrhea likely cause for dizziness sodium 129 urine sodium normal, urine osmolality low head CT negative s/p LR 50 cc/hr tx to D5W due to rapid correction nephrology consult>start NS @75, Correct serum sodium at a rate of 0.5-1 millimole per L/hr and not more than 10 mEq in 24 hours. Sepsis secondary to multifocal pneumonia. Sepsis resolved chest CT with right lower lobe consolidation, additional small multifocal consolidations are noted within the right upper and left lower lobes. COVID/flu/RSV negative urine legionella pending continue ceftriaxone and azithromycin Diarrhea. Resolved labs significant for metabolic acidosis, MOISES with electrolyte abnormalities secondary to dehydration no diarrhea currently here abdominopelvic CT with no acute findings. monitor CBC and CMP Elevated LFTs/distended gallbladder HIDA scan negative patient not having any pain MOISES likely secondary to dehydration and diabetes medication creatinine 3.36, now 1.38 no acute findings on abdominopelvic CT nephrology following monitor creatinine Hypomagnesemia repleted likely secondary to diarrhea magnesium 1.1, now 2.2 Hilar adenopathy, incidental finding on CT likely reactive to pneumonia follow-up outpatient for possible repeat imaging Inguinal hernia no abd pain not incarcerated and no bowel obstruction recommend outpt f/u Insulin-dependent diabetes sliding scale insulin diabetic diet Lantus, 4 units HTN continue home meds Iron-deficiency anemia H&H stable monitor CBC HLD continue home meds Full code VTE prophylaxis: Lovenox Quality Stroke Does the patient have a stroke diagnosis?: No VTE Prior VTE?: No VTE Risk Level:: Medical - moderate - high VTE Device Contraindication: Treatment Not Indicated VTE Drug Contraindication: N/A - Med Ordered
--- NOTE | 2024-06-18 15:17 | P.CDIM_ITS ---
PROVIDER RESPONSE TEXT: To clarify, the appropriate diagnosis supported by the clinical indicators: Acute QUERY TEXT: PHYSICIAN'S DOCUMENTATION REQUEST Date of Query: 06/17/2024 11:52 AM EDT Patient Name: RICO KHAN Admit Date: 06/17/2024 Dear Tete Parker SOFTWARE INTERN, A review of the medical record indicates additional documentation may be needed. Please review below and update the documentation accordingly. Clinical Indicators: Progress note dated 06/17/24 - Diarrhea, labs significant for metabolic acidosis, electrolyte abnormal ities secondary to dehydration. Patient with sepsis secondary to pneumonia complicated by hyponatremia, metabolic acidosis and MOISES. Fluids. Clarify which of the following accurately represents the acuity of the metabolic acidosis: Possible options might include: Acute Chronic Other specific Other (explain) Clinically unable to determine (explain) Thank you, Angie Alexander, CCS, CDIS Use of terms such as suspected, likely, concern for, or probable (associated with a specific diagnosi s that is being evaluated, monitored, or treated as if it exists) are acceptable and can be coded in the inpatient se tting, when documented at the time of discharge. Please use your independent medical judgment in providing your response. THIS QUERY IS PART OF THE PERMANENT MEDICAL RECORD
[2024-06-18 15:59] LABS: Glucose, Whole Blood 260 mg/dL (60-115)
[2024-06-18] MEDS: cefTRIAXone sodium 1 GM VIAL IVPUSH (17:11)
[2024-06-18] MEDS: Insulin Lispro 100 UNIT/ML 3 ML VIAL SUBCUT ×2 (17:11→20:33)
[2024-06-18] MEDS: Azithromycin 500 MG in 0.9 % Sodium Chloride 250 ML 125 MG IV (17:22)
[2024-06-18 20:23] LABS: Glucose, Whole Blood 189 mg/dL (60-115)
[2024-06-18] MEDS: Enoxaparin Sodium 40 MG/0.4 ML SYRINGE SUBCUT (20:32)
[2024-06-18] MEDS: Insulin Glargine,Hum.rec.anlog 100 UNIT/ML 10 ML VIAL SUBCUT (20:32)
[2024-06-18] MEDS: Gabapentin 300 MG CAPSULE PO (20:32)
[2024-06-18] MEDS: Benzonatate 100 MG CAPSULE 200 MG PO (20:37)
[2024-06-19] MEDS: 0.9 % Sodium Chloride 1,000 ML 75 ML IVCONT (00:51)
[2024-06-19 03:26] VITALS: BP 137/70; PULSE 82; RESP 18; TEMP 36.6; O2SAT 98
[2024-06-19] MEDS: Omeprazole 20 MG CAPSULE.DR PO (05:44)
[2024-06-19 07:34] LABS: Glucose, Whole Blood 121 mg/dL (60-115)
[2024-06-19 07:37] LABS: MANUAL DIFF FLAG NO
[2024-06-19 07:49] VITALS: BP 165/82; PULSE 85; RESP 20; TEMP 37.2; O2SAT 95
[2024-06-19 07:52] LABS: Basophils Percent Auto 0.2 % (0-2); Eosinophils Absolute Auto 0.1 X10*3/uL (0.0-0.4); Eosinophils Percent Auto 0.8 % (0-4); Hematocrit 29.9 % (42.0-52.0); Hemoglobin 10.4 g/dl (14.0-18.0); Imm Gran Abs Auto 0.52 X10*3/uL (0.00-0.03); Lymphocytes Absolute Auto 0.9 X10*3/uL (1.2-4.9); Lymphocytes Percent Auto 7.3 % (20-40); Mean Corpuscular HGB Conc 34.8 g/dl (31.0-36.0); Mean Corpuscular Volume 89.3 fL (80.0-98.0); Mean Platelet Volume 9.6 fL (9.4-12.4); Monocytes Absolute Auto 0.9 X10*3/uL (0.1-1.2); Monocytes Percent Auto 6.9 % (2-11); Neutrophils Absolute Auto 10.4 x10*3/uL (2.0-8.3); Neutrophils Percent Auto 80.8 % (45-73); Platelet Count 237 X10*3/uL (160-400); Red Blood Count 3.35 X10*6/uL (4.60-5.80); Red Cell Distribution Width 12.8 % (11.0-16.0); White Blood Count 12.9 X10*3/uL (4.8-10.8)
[2024-06-19 07:59] LABS: Alanine Aminotransferase 54 U/L (0-40); Albumin Level 2.3 g/dL (3.5-5.0); Alkaline Phosphatase 141 U/L (39-117); Anion Gap 11 (12-20); Aspartate Amino Transferase 94 U/L (5-37); Bilirubin Total 0.4 mg/dL (0.0-1.0); Blood Urea Nitrogen 35 mg/dL (9-16); Calcium 8.5 mg/dL (8.4-10.2); Carbon Dioxide 23 mmol/L (22-29); Chloride 100 mmol/L (96-108); Creatinine Clr Calc Pharmacy 51.1; Estimated Glomerular Filt Rate > 60; Glucose Random 127 mg/dL (60-115); Magnesium 1.5 mg/dL (1.6-2.6); Potassium 3.6 mmol/L (3.3-5.1); Sodium 130 mmol/L (135-145); Total Protein 6.2 g/dL (6.5-8.0)
[2024-06-19] MEDS: amLODIPine Besylate 5 MG TABLET PO (08:09)
[2024-06-19] MEDS: Magnesium Oxide 400 MG TABLET PO ×2 (08:37→17:01)
[2024-06-19] MEDS: Magnesium Sulfate/D5W 1 GM/100 ML PIGGYBACK IV (08:52)
[2024-06-19 11:08] VITALS: BP 151/77; PULSE 78; RESP 20; TEMP 36.8; O2SAT 96
[2024-06-19 11:08] LABS: Glucose, Whole Blood 247 mg/dL (60-115)
[2024-06-19] MEDS: Insulin Lispro 100 UNIT/ML 3 ML VIAL SUBCUT ×3 (12:05→20:50)
[2024-06-19 12:11] LABS: HBc Num1 0.12 S/CO (0.00-0.79); HBsAGNum1 0.44 S/CO (0.00-0.99); Hepatitis A Antibody IgM 0.37 Index (0-0.79); Hepatitis B Core Antibody Nonreactive (Nonreactive); Hepatitis B Surface Antigen Negative (Negative); ~HepC Num1 0.27 S/CO (0.00-0.79); ~Hepatitis A Antibody IgM Nonreactive (Nonreactive); ~Hepatitis B Surface Antibody NONREACTIVE (Nonreactive); ~Hepatitis C Antibody Nonreactive (Nonreactive)
--- NOTE | 2024-06-19 12:13 | HO.PM.IMPN ---
Subjective Subjective Date of Service: 06/19/24 Interval History: Follow up sepsis, PNA ,hyponatremia ,hypomagnesemia Physical Exam Vital Signs: Vital Signs: Last Vital Signs Temp 98.2 F 06/19/24 11:08 Pulse 78 06/19/24 11:08 Resp 20 06/19/24 11:08 BP 151/77 H 06/19/24 11:08 Pulse Ox 96 06/19/24 11:08 O2 Del Method Room Air 06/19/24 11:08 BMI result Body Mass Index 19.0 lung sounds - air entry seems improving ,somewhat diminshed right>left heart : rrr, clear S1, S2 abd: soft, abdomen is soft, nontender,bs present neuro patient is alert x3, no focal deficit Objective Data Active Medications Acetaminophen (Acetaminophen 325 Mg Tablet) 650 mg PO Q6H PRN PRN Reason: Pain, Mild 1-3,fever,headache Last Admin: 06/18/24 18:34 Dose: 650 mg Documented By: PABLITO Amlodipine Besylate (Amlodipine Besylate 5 Mg Tablet) 5 mg PO DAILY [facility]; Protocol Last Admin: 06/19/24 08:09 Dose: 5 mg Documented By: PABLITO Benzonatate (Benzonatate 100 Mg Capsule) 200 mg PO TID PRN PRN Reason: Cough Last Admin: 06/18/24 20:37 Dose: 200 mg Documented By: MARCELLUS Calcium Carbonate (Calcium Carbonate 750 Mg Tab.Chew) 750 mg PO Q4H PRN PRN Reason: Heartburn Ceftriaxone Sodium (Ceftriaxone Sodium 1 Gm Vial) 1 gm IVPUSH Q24H [facility] Last Admin: 06/18/24 17:11 Dose: 1 gm Documented By: PABLITO Dextrose (Dextrose 50 % 25 Gm/50 Ml Syringe) 25 gm IVPUSH Q15M PRN; Protocol PRN Reason: per Hypoglycemia Standing Ord. Enoxaparin Sodium (Enoxaparin Sodium 40 Mg/0.4 Ml Syringe) 40 mg SUBCUT Q24H [facility] Last Admin: 06/18/24 20:32 Dose: 40 mg Documented By: MARCELLUS Gabapentin (Gabapentin 300 Mg Capsule) 300 mg PO TID [facility] Last Admin: 06/19/24 08:39 Dose: Not Given Documented By: PABLITO Non-Admin Reason: Patient Refused Glucose (Glucose Gel 15 Gm Gel..Gram.) 15 gm PO Q15M PRN; Protocol PRN Reason: per Hypoglycemia Standing Ord. Azithromycin 500 mg/ Sodium (Chloride) 250 mls @ 125 mls/hr IV Q24H [facility] Last Infusion: 06/18/24 20:50 Dose: Infused Documented By: MARCELLUS Insulin Glargine (Insulin Glargine,Hum.Rec.Anlog 100 Unit/Ml 10 Ml Vial) 4 unit SUBCUT BEDTIME [facility] Last Admin: 06/18/24 20:32 Dose: 4 unit Documented By: MARCELLUS Comments: Insulin Human Lispro (Insulin Lispro 100 Unit/Ml 3 Ml Vial) 0 unit SUBCUT QIDACHS [facility]; Protocol Last Admin: 06/19/24 12:05 Dose: 4 unit Documented By: PABLITO Magnesium Hydroxide (Milk Of Magnesia 30 Ml Oral.Susp) 30 ml PO DAILY PRN PRN Reason: Constipation Magnesium Oxide (Magnesium Oxide 400 Mg Tablet) 400 mg PO BIDPC [facility] Last Admin: 06/19/24 08:37 Dose: 400 mg Documented By: PABLITO Melatonin (Melatonin 3 Mg Tablet) 6 mg PO BEDTIME PRN PRN Reason: Insomnia Omeprazole (Omeprazole 20 Mg Capsule.Dr) 20 mg PO DAILY@0630 [facility] Last Admin: 06/19/24 05:44 Dose: 20 mg Documented By: MARCELLUS Ondansetron HCl (Ondansetron Hcl 4 Mg/2 Ml Vial) 4 mg IVPUSH Q8H PRN PRN Reason: Nausea and Vomiting Sodium Chloride (0.9 % Sodium Chloride Flush 3 Ml Syringe) 3 ml IVFLUSH QSHIFT [facility] Last Admin: 06/19/24 08:07 Dose: Not Given Documented By: PABLITO Non-Admin Reason: IV Running Labs 06/19/24 07:07 06/19/24 07:07 Labs: Laboratory Results - last 24 hr 06/18/24 06/18/24 06/19/24 15:55 20:10 07:07 MCV 89.3 MCH 31.0 MCHC 34.8 RDW 12.8 Plt Count 237 MPV 9.6 Immature Gran % (Auto) 4.0 H Neut % (Auto) 80.8 H Lymph % (Auto) 7.3 L [place] % (Auto) 6.9 Eos % (Auto) 0.8 Baso % (Auto) 0.2 Lymph # (Auto) 0.9 L [place] # (Auto) 0.9 Eos # (Auto) 0.1 Baso # (Auto) 0.0 Abs Immat Gran (auto) 0.52 H Absolute Neuts (auto) 10.4 H Absolute Nucleated RBC 0.000 Nucleated RBC % (auto) 0.0 Anion Gap 11 L Estim Creat Clear Calc 51.1 Estimated GFR > 60 POC Glucose 260 H 189 H Random Glucose 127 H Calcium 8.5 Magnesium 1.5 L Total Bilirubin 0.4 AST 94 H ALT 54 H Alkaline Phosphatase 141 H Total Protein 6.2 L Albumin 2.3 L 06/19/24 06/19/24 07:30 11:04 MCV MCH MCHC RDW Plt Count MPV Immature Gran % (Auto) Neut % (Auto) Lymph % (Auto) [place] % (Auto) Eos % (Auto) Baso % (Auto) Lymph # (Auto) [place] # (Auto) Eos # (Auto) Baso # (Auto) Abs Immat Gran (auto) Absolute Neuts (auto) Absolute Nucleated RBC Nucleated RBC % (auto) Anion Gap Estim Creat Clear Calc Estimated GFR POC Glucose 121 H 247 H Random Glucose Calcium Magnesium Total Bilirubin AST ALT Alkaline Phosphatase Total Protein Albumin Microbiology Microbiology Results: Microbiology 06/16/24 15:50 Blood Culture - Preliminary Blood - Venous No growth after 48 hours. 06/16/24 15:50 Blood Culture - Preliminary Blood - Venous No growth after 48 hours. Assessment and Plan (1) Hypomagnesemia: Status: Acute (2) Pneumonia: Status: Acute Assessment and Plan: 74-year-old male with a past medical history significant for insulin-dependent diabetes, HTN, ARUNA, HLD, tremor, reported to the ED due to dizziness, congestion, tactile fever and diarrhea for the past week. Workup negative for COVID/flu/RSV. Chest CT with multifocal pneumonia, labs and vitals significant for sepsis. Abdominopelvic CT with moderate distended gallbladder, no abdominal pain, HIDA scan ordered. Labs also significant for MOISES, hyponatremia, hypomagnesemia. Hypovolemic hyponatremia secondary to poor p.o. intake and diarrhea likely cause for dizziness sodium 130 urine sodium normal, urine osmolality low head CT negative will moniter electrolytes ,hold ivf. nephrology follow up acute Hypomagnesemia-likely secondary to diarrhea repleted yeterday still persistent hypomagnesemia added iv an dpo replacements Sepsis secondary to multifocal pneumonia. Sepsis resolved chest CT with right lower lobe consolidation, additional small multifocal consolidations are noted within the right upper and left lower lobes. COVID/flu/RSV negative urine legionella pending continue ceftriaxone and azithromycin Diarrhea. Resolved no diarrhea currently abdominopelvic CT with no acute findings. monitor CBC and CMP Elevated LFTs/distended gallbladder: lfts similar range HIDA scan negative,hepatitis serologies added ,patient not having any abd pain. MOISES-thought to be likely secondary to dehydration and diabetes medication no acute findings on abdominopelvic CT renal function seems improved. Hilar adenopathy, incidental finding on CT likely reactive to pneumonia follow-up outpatient. Inguinal hernia no abd pain not incarcerated and no bowel obstruction recommend outpt f/u Insulin-dependent diabetes sliding scale insulin,lantus diabetic diet HTN continue home meds Iron-deficiency anemia H&H stable monitor CBC HLD continue home meds Full code VTE prophylaxis: Lovenox Quality Stroke Does the patient have a stroke diagnosis?: No VTE Prior VTE?: No VTE Risk Level:: Medical - moderate - high VTE Device Contraindication: Treatment Not Indicated VTE Drug Contraindication: N/A - Med Ordered
[2024-06-19 15:47] LABS: Glucose, Whole Blood 160 mg/dL (60-115)
[2024-06-19 15:50] VITALS: BP 122/60; PULSE 86; RESP 18; TEMP 36.6; O2SAT 96
[2024-06-19] MEDS: 0.9 % Sodium Chloride Flush 3 ML SYRINGE IVFLUSH ×2 (17:02→22:45)
[2024-06-19] MEDS: cefTRIAXone sodium 1 GM VIAL IVPUSH (17:02)
[2024-06-19] MEDS: Azithromycin 500 MG in 0.9 % Sodium Chloride 250 ML 125 MG IV (17:08)
[2024-06-19] MEDS: Gabapentin 300 MG CAPSULE PO (19:51)
[2024-06-19] MEDS: Benzonatate 100 MG CAPSULE 200 MG PO (19:51)
[2024-06-19 20:00] VITALS: BP 132/75; PULSE 91; RESP 18; TEMP 37.2; O2SAT 95
[2024-06-19 20:16] LABS: Glucose, Whole Blood 218 mg/dL (60-115)
[2024-06-19] MEDS: Insulin Glargine,Hum.rec.anlog 100 UNIT/ML 10 ML VIAL SUBCUT (20:51)
[2024-06-19] MEDS: Enoxaparin Sodium 40 MG/0.4 ML SYRINGE SUBCUT (20:51)
[2024-06-20] VITALS: BP 141/71; PULSE 80; RESP 17; TEMP 36.7; O2SAT 95
[2024-06-20 04:00] VITALS: BP 133/70; PULSE 85; RESP 16; TEMP 36.8; O2SAT 95
[2024-06-20] MEDS: Omeprazole 20 MG CAPSULE.DR PO (05:43)
[2024-06-20] MEDS: Benzonatate 100 MG CAPSULE 200 MG PO (05:44)
[2024-06-20 07:23] VITALS: BP 151/78; PULSE 84; RESP 18; TEMP 36.7; O2SAT 95
[2024-06-20 07:29] LABS: Glucose, Whole Blood 145 mg/dL (60-115)
[2024-06-20] MEDS: Magnesium Oxide 400 MG TABLET PO (08:01)
[2024-06-20] MEDS: amLODIPine Besylate 5 MG TABLET PO (08:01)
[2024-06-20] MEDS: Gabapentin 300 MG CAPSULE PO ×2 (08:01→14:42)
[2024-06-20] MEDS: 0.9 % Sodium Chloride Flush 3 ML SYRINGE IVFLUSH (10:03)
[2024-06-20 10:10] LABS: Anion Gap 12 (12-20); Blood Urea Nitrogen 34 mg/dL (9-16); Calcium 8.6 mg/dL (8.4-10.2); Carbon Dioxide 25 mmol/L (22-29); Chloride 98 mmol/L (96-108); Creatinine Clr Calc Pharmacy 57.2; Estimated Glomerular Filt Rate > 60; Glucose Random 193 mg/dL (60-115); Potassium 4.1 mmol/L (3.3-5.1); Sodium 131 mmol/L (135-145)
[2024-06-20 11:02] VITALS: BP 136/70; PULSE 82; RESP 19; TEMP 37.2; O2SAT 97
[2024-06-20 11:09] LABS: Glucose, Whole Blood 194 mg/dL (60-115)
[2024-06-20] MEDS: Insulin Lispro 100 UNIT/ML 3 ML VIAL SUBCUT (13:15)
--- NOTE | 2024-06-20 13:52 | P.PNNP_ITS ---
Subjective Subjective Date of Service: 06/20/24 Interval history: Follow up sepsis, PNA ,hyponatremia ,hypomagnesemia Physical Exam 2 Vital Signs: Vital Signs: Last Vital Signs Temp 99.0 F 06/20/24 11:02 Pulse 82 06/20/24 11:02 Resp 19 06/20/24 11:02 BP 136/70 06/20/24 11:02 Pulse Ox 97 06/20/24 11:02 O2 Del Method Room Air 06/20/24 11:02 BMI result Body Mass Index 19.0 Const: General: No confusion Orientation/consciousness: No confusion Eyes: Direct Ophthalmoscopy: No photophobia Neuro: General: No confusion Objective Data Labs 06/19/24 07:07 06/20/24 09:13 Labs: Laboratory Results - last 24 hr 06/19/24 06/19/24 06/20/24 15:40 20:13 07:23 Sodium Potassium Chloride Carbon Dioxide Anion Gap BUN Creatinine Estim Creat Clear Calc Estimated GFR POC Glucose 160 H 218 H 145 H Random Glucose Calcium 06/20/24 06/20/24 09:13 11:05 Sodium 131 L Potassium 4.1 Chloride 98 Carbon Dioxide 25 Anion Gap 12 BUN 34 H Creatinine 0.83 Estim Creat Clear Calc 57.2 Estimated GFR > 60 POC Glucose 194 H Random Glucose 193 H Calcium 8.6 Microbiology Microbiology Results: Microbiology 06/16/24 15:50 Blood - Venous Blood Culture - Preliminary No growth after 48 hours. 06/16/24 15:50 Blood - Venous Blood Culture - Preliminary No growth after 48 hours. Procedures Date of Service Date of Service: 06/20/24 Assessment & Plan Assessment and plan (1) Metabolic acidosis: Status: Acute (2) MOISES (acute kidney injury): Status: Acute (3) Acute hyponatremia: Status: Acute Plan MOISES due to hypovolemia. He has hypovolemic hyponatremia. Urine sodium was less than 20. He was on chlorthalidone at the time of admission. MOISES resolved. Hyponatremia improving. Recommendations Avoid chlorthalidone and thiazide type diuretic Restrict hypotonic fluids. We shall follow along with the team Time Spent With Patient Time: Total time managing care of this patient today ____ minutes. Progress Note: Quality Stroke Does the patient have a stroke diagnosis?: No
--- NOTE | 2024-06-20 14:42 | PM.CNGS ---
History of Present Illness Consult details Consult date: 06/20/24 <Shirley Acuña PA-C - Last Filed: 06/20/24 14:56> Narrative: 74-year-old male with PMH significant for insulin-dependent diabetes, HTN, ARUNA, HLD who presented to the ED with complaints of dizziness, congestion, subjective fever and diarrhea. Chest CT showed multifocal pneumonia. He was admitted to the hospital service for sepsis, pneumonia and started on ceftriaxone and azithromycin. CT scan abd pelvis was also performed at admission which showed gallstones, distended gallbladder without any wall thickening or pericholecystic fluid. Also demonstrated right inguinal hernia containing cecum. Transaminases were mildly elevated, no biliary ductal dilatation and bilirubin normal. HIDA scan was subsequently performed which was negative. General surgery was consulted for the gallbladder distention and right inguinal hernia. He denies any abd pain, nausea, vomiting. He has been tolerating a solid diet. He denies any constipation. He reports he feels back to baseline and wants to go home. <Shirley Acuña PA-C - Last Filed: 06/20/24 14:56> Review of Systems Review of Systems: Yes all other systems are reviewed and are negative <Shirley Acuña PA-C - Last Filed: 06/20/24 14:56> [facility] Past Medical History Medical History: Medical History Diabetes HTN (hypertension) Hyperlipidemia Peripheral neuropathy <Shirley Acuña PA-C - Last Filed: 06/20/24 14:56> Surgical History Surgical History: Surgical History History of colonoscopy <Shirley Acuña PA-C - Last Filed: 06/20/24 14:56> Social History Social History: Social History Household Members: Family Housing: House Patient Tobacco Use Status: Former Tobacco user Cigarettes Per Day: 1 Smoked in Last 30 Days: No Use of substances other than those prescribed or required for medical reasons: No Currently Displaying Signs/Symptoms of Drug Intoxication Withdrawal: No Have you been hit, kicked, punched, or otherwise hurt by someone within the past year? If so, by whom?: No Do you feel safe in your current relationship?: No Current Relationship Is there a partner from a previous relationship who is making you feel unsafe now?: No Advance Directives: Yes Advance Directives on File: Yes Advance Directives Date on File: 05/05/19 Do you have a plan to hurt others: No Plan Recently lost weight without trying: No Nutrition Risks: No Nutritional Risk service: No <Shirley Acuña PA-C - Last Filed: 06/20/24 14:56> Meds Allergies/Adverse reactions: Allergies Allergy/AdvReac Type Severity Reaction Status Date / Time No Known Allergies Allergy Verified 06/16/24 13:56 <Shirley Acuña PA-C - Last Filed: 06/20/24 14:56> Active Medications: Current Medications Acetaminophen (Acetaminophen 325 Mg Tablet) 650 mg PO Q6H PRN PRN Reason: Pain, Mild 1-3,fever,headache Last Admin: 06/18/24 18:34 Dose: 650 mg Amlodipine Besylate (Amlodipine Besylate 5 Mg Tablet) 5 mg PO DAILY [facility]; Protocol Last Admin: 06/20/24 08:01 Dose: 5 mg Benzonatate (Benzonatate 100 Mg Capsule) 200 mg PO TID PRN PRN Reason: Cough Last Admin: 06/20/24 05:44 Dose: 200 mg Calcium Carbonate (Calcium Carbonate 750 Mg Tab.Chew) 750 mg PO Q4H PRN PRN Reason: Heartburn Ceftriaxone Sodium (Ceftriaxone Sodium 1 Gm Vial) 1 gm IVPUSH Q24H [facility] Last Admin: 06/19/24 17:02 Dose: 1 gm Dextrose (Dextrose 50 % 25 Gm/50 Ml Syringe) 25 gm IVPUSH Q15M PRN; Protocol PRN Reason: per Hypoglycemia Standing Ord. Enoxaparin Sodium (Enoxaparin Sodium 40 Mg/0.4 Ml Syringe) 40 mg SUBCUT Q24H [facility] Last Admin: 06/19/24 20:51 Dose: 40 mg Gabapentin (Gabapentin 300 Mg Capsule) 300 mg PO TID [facility] Last Admin: 06/20/24 14:42 Dose: 300 mg Glucose (Glucose Gel 15 Gm Gel..Gram.) 15 gm PO Q15M PRN; Protocol PRN Reason: per Hypoglycemia Standing Ord. Azithromycin 500 mg/ Sodium (Chloride) 250 mls @ 125 mls/hr IV Q24H [facility] Last Infusion: 06/19/24 20:56 Dose: Infused Insulin Glargine (Insulin Glargine,Hum.Rec.Anlog 100 Unit/Ml 10 Ml Vial) 4 unit SUBCUT BEDTIME [facility] Last Admin: 06/19/24 20:51 Dose: 4 unit Insulin Human Lispro (Insulin Lispro 100 Unit/Ml 3 Ml Vial) 0 unit SUBCUT QIDACHS [facility]; Protocol Last Admin: 06/20/24 13:15 Dose: 2 unit Magnesium Hydroxide (Milk Of Magnesia 30 Ml Oral.Susp) 30 ml PO DAILY PRN PRN Reason: Constipation Magnesium Oxide (Magnesium Oxide 400 Mg Tablet) 400 mg PO BIDPC [facility] Last Admin: 06/20/24 08:01 Dose: 400 mg Melatonin (Melatonin 3 Mg Tablet) 6 mg PO BEDTIME PRN PRN Reason: Insomnia Omeprazole (Omeprazole 20 Mg Capsule.Dr) 20 mg PO DAILY@0630 [facility] Last Admin: 06/20/24 05:43 Dose: 20 mg Ondansetron HCl (Ondansetron Hcl 4 Mg/2 Ml Vial) 4 mg IVPUSH Q8H PRN PRN Reason: Nausea and Vomiting Sodium Chloride (0.9 % Sodium Chloride Flush 3 Ml Syringe) 3 ml IVFLUSH QSHIFT [facility] Last Admin: 06/20/24 10:03 Dose: 3 ml <Shirley Acuña PA-C - Last Filed: 06/20/24 14:56> Home medications: Home Medications ?Medication ?Instructions ?Recorded ?Confirmed ?Last Taken ?Type ferrous sulfate 325 mg (65 mg 325 mg PO DAILY 01/22/20 06/17/24 06/15/24 History iron) tablet lisinopril 20 mg tablet 20 mg PO DAILY 01/22/20 06/17/24 06/15/24 History primidone 50 mg tablet 50 mg PO BEDTIME 01/22/20 06/17/24 06/15/24 History amlodipine 5 mg tablet 5 mg PO DAILY 06/17/24 06/17/24 06/15/24 History atorvastatin 80 mg tablet 80 mg PO DAILY 06/17/24 06/17/24 06/15/24 History empagliflozin 25 mg tablet 25 mg PO DAILY 06/17/24 06/17/24 06/15/24 History (Jardiance) ezetimibe 10 mg tablet 10 mg PO DAILY 06/17/24 06/17/24 06/15/24 History fluticasone propionate 50 50 mcg inhalation Q10D 06/17/24 06/17/24 Unknown History mcg/actuation blister powder for inhalation gabapentin 300 mg capsule 300 mg PO TID 06/17/24 06/17/24 06/15/24 History glucose 4 gram chewable tablet 16 g PO NEEDED PRN Low Blood 06/17/24 06/17/24 06/15/24 History Sugar insulin glargine-yfgn 100 unit/mL 6 unit subcut BEDTIME 06/17/24 06/17/24 06/15/24 History (3 mL) subcutaneous pen magnesium oxide 250 mg PO DAILY 06/17/24 06/17/24 06/15/24 History omeprazole 20 mg capsule,delayed 20 mg PO DAILY@0630 06/17/24 06/17/24 06/15/24 History release sitagliptin phosphate 100 mg 100 mg PO DAILY 06/17/24 06/17/24 06/15/24 History tablet (Januvia) <JOSEY Padgett Last Filed: 06/20/24 14:56> Physical Exam Vital Signs: Vital Signs: Last Vital Signs Temp 99.0 F 06/20/24 11:02 Pulse 82 06/20/24 11:02 Resp 19 06/20/24 11:02 BP 136/70 06/20/24 11:02 Pulse Ox 97 06/20/24 11:02 O2 Del Method Room Air 06/20/24 11:02 BMI result Body Mass Index 19.0 <JOSEY Padgett Last Filed: 06/20/24 14:56> Const: General: comfortable, no acute distress and alert <JOSEY Padgett Last Filed: 06/20/24 14:56> Orientation/consciousness: patient oriented x3 <JOSEY Padgett Last Filed: 06/20/24 14:56> Resp: Effort & Inspection: normal respiratory effort <JOSEY Padgett Last Filed: 06/20/24 14:56> GI: Other: soft, reducible right inguinal hernia, no overlying skin changes <JOSEY Padgett Filed: 06/20/24 14:56> Inspection: Yes normal to inspection, No distended and No scar <JOSEY Padgett Last Filed: 06/20/24 14:56> Palpation (GI): Soft to palpation, nontender, no guarding and not rigid <JOSEY Padgett Last Filed: 06/20/24 14:56> Skin: General skin exam: no rashes or lesions noted and no jaundice <JOSEY Padgett Last Filed: 06/20/24 14:56> Neuro: General: patient oriented x3 and moves all extremities <JOSEY Padgett Last Filed: 06/20/24 14:56> Results Labs Result diagrams: 06/19/24 07:07 06/20/24 09:13 <JOSEY Padgett Last Filed: 06/20/24 14:56> Labs: Abnormal lab results 06/19/24 06/19/24 06/20/24 Range/Units 15:40 20:13 07:23 Sodium (135-145) mmol/L BUN (9-16) mg/dL POC Glucose 160 H 218 H 145 H (60-115) mg/dL Random Glucose (60-115) mg/dL 06/20/24 06/20/24 Range/Units 09:13 11:05 Sodium 131 L (135-145) mmol/L BUN 34 H (9-16) mg/dL POC Glucose 194 H (60-115) mg/dL Random Glucose 193 H (60-115) mg/dL BMP 06/20/24 09:13 Sodium 131 L Potassium 4.1 Chloride 98 Carbon Dioxide 25 BUN 34 H Creatinine 0.83 Calcium 8.6 Urine 06/16/24 Range/Units 16:56 Urine Color Yellow Urine Appearance Clear Urine pH 5.0 (5.0-9.0) Ur Specific [place] 1.020 (1.005-1.025) Urine Protein Trace (Neg-Trace) mg/dL Urine Glucose (UA) >=1000 H (Negative) mg/dL All other labs normal. <JOSEY Padgett Last Filed: 06/20/24 14:56> Imaging Abdomen CT scan report/results: report reviewed and image reviewed <Shirley Acuña PA-C - Last Filed: 06/20/24 14:56> Assessment and Plan (1) Inguinal hernia: Qualifiers: Laterality: unilateral Obstruction and gangrene presence: without obstruction or gangrene Recurrence: not specified as recurrent Qualified Code(s): K40.90 - Unilateral inguinal hernia, without obstruction or gangrene, not specified as recurrent <Shirley Acuña PA-C - Last Filed: 06/20/24 14:56> Status: Acute <Shirley Acuña PA-C - Last Filed: 06/20/24 14:56> 74-year-old male with PMH significant for insulin-dependent diabetes, HTN, ARUNA, HLD admitted for sepsis, pneumonia. Found to have gallstones, distended gallbladder and right inguinal hernia on CT scan abd/pelvis on admission. HIDA subsequently performed which is negative for acute cholecystitis. He is currently asymptomatic and his abdomen is very benign. Gallbladder distention likely due to lack of emptying with his reduced oral intake while he was acutely ill. He does have a large reducible right inguinal hernia. Again he is asymptomatic and it is soft and reducible and there is no urgency for repair during this admission. He can follow up with Dr. Nair in office to discuss elective repair. Patient and cimfortable with plan. <Shirley Acuña PA-C - Last Filed: 06/20/24 14:56> 74-year-old male with PMH significant for insulin-dependent diabetes, HTN, ARUNA, HLD admitted for sepsis, pneumonia. Found to have gallstones, distended gallbladder and right inguinal hernia on CT scan abd/pelvis on admission. HIDA subsequently performed which is negative for acute cholecystitis. He is currently asymptomatic and his abdomen is very benign. Gallbladder distention likely due to lack of emptying with his reduced oral intake while he was acutely ill. He does have a large reducible right inguinal hernia. Again he is asymptomatic and it is soft and reducible and there is no urgency for repair during this admission. He can follow up with Dr. Nair in office to discuss elective repair. Patient and cimfortable with plan. As noted <Taj Nair MD - Last Filed: 06/20/24 16:02> Procedures Date of Service Date of Service: 06/20/24 <Shirley Acuña PA-C - Last Filed: 06/20/24 14:56> 06/20/24 <Taj Nair MD - Last Filed: 06/20/24 16:02>
--- NOTE | 2024-06-20 15:23 | MHC.CM.PN ---
PT MEDICALLY CLEARED FOR DC HOME SELF CARE, PT'S WILL TRANSPORT
--- NOTE | 2024-06-20 16:12 | PM.DS ---
DS: Providers Provider Date of Service: 06/20/24 Date of admission: 06/16/24 21:01 Date of discharge: 06/20/24 Primary care physician: Mati Boyd MD Consults: 06/16/24 21:01 Consult to Nephrology Routine Consulting Provider: Bernardo Tyson Reason for consultation: MOISES, hyponatremia Has provider been notified: No 06/20/24 11:51 Consult to General Surgery Routine Consulting Provider: [facility] Reason for consultation: elevated lft's ,distended gall bladder,inguinal hernia Has provider been notified: No Attending physician on discharge: Lori Wong Discharging clinician: Lori Wong DS: Diagnosis Discharge Diagnosis (1) Inguinal hernia: Status: Acute DS: Summary Hospital Course Hospital Course: HPI:74-year-old male with a past medical history significant for insulin-dependent diabetes, HTN, ARUNA, HLD, tremor, reported to the ED due to dizziness, congestion, tactile fever and diarrhea for the past week. He reports he has not been able to eat or drink much at all for the past few days. His has also been experiencing diarrhea. He denies any chest pain, shortness of breath or abdominal pain. No urinary symptoms including hematuria, dysuria or frequency. He also denies any nausea or vomiting. He is experiencing diarrhea mostly in the morning but has been unable to tolerate much by mouth because of this. Hospital course: 74-year-old male with a past medical history significant for insulin-dependent diabetes, HTN, ARUNA, HLD, tremor, reported to the ED due to dizziness, congestion, tactile fever and diarrhea for the past week. Workup negative for COVID/flu/RSV. Chest CT with multifocal pneumonia, labs and vitals significant for sepsis. Abdominopelvic CT with moderate distended gallbladder, no abdominal pain, HIDA scan ordered. Labs also significant for MOISES, hyponatremia, hypomagnesemia. his hopsital course as follows: Hypovolemic hyponatremia- which was thought to be poor oral intake and diarrhea, symptoms resolved, CTA head and negative, seen by nephrology recommended-avoid thiazide diuretics and medications that can cause hyponatremia. Patient hyponatremia seems to be improved, sodium is in 131 range. Patient was advised for fluid restriction around 1.8 L to 2 L range. Acute hypomagnesemia: Repleted and resolved. added po magnesium 400 mg po bid. moises improved with hydration.Hold lisinopril for 1 week, repeat BMP and further use as per renal function outpatient. sepsis secondary to multifocal pneumonia: Patient was treated with IV antibiotics seems improved will be going home with p.o. antibiotics. Mild hilar adenopathy thought to be reactive to pneumonia, repeat chest imaging in 3-4 weeks to see resolution of adenopathy as well as pneumonia outpatient. Elevated LFTs/distended gallbladder: LFTs similar range, HIDA scan negative, hepatitis serology negative, discussed with the GI likely elevated LFTs in the setting of sepsis with pneumonia. Monitor LFTs outpatient. In addition patient was seen by surgery for possible hernia and elevated LFTs: Recommended to follow-up out patiently since patient is asymptomatic and does not have any abdominal pain. Inguinal hernia:no abd pain,not incarcerated and no bowel obstruction:recommend outpt f/u .will add flomax. ct abd : incidental finding:Mild prostatomegaly : Patient is urinating well. No suprapubic discomfort. Follow-up out patiently. plan: Complete Ceftin 500 mg p.o. b.i.d. for 7 days, azithromycin 500 mg q.day for 3 days. moniter cmp and magnesium in 1 week. repeat chest imaging in 3-4 weeks to see resolution of adenopathy as well as pneumonia outpatient. Patient is to follow-up with Nephrology and surgery outpatient. Above management discussed with the patient in detail length with his present, both understand and in agreement with the above plan, time spent 40 minute. Time Attestation Total time managing care of this patient today: 40 mintues. Discharge Coordination Time (in mins): 40 min Quality: Safe Use of Opioids Does Pt have an Active Cancer Diagnosis on the Problem List?: No Quality: Stroke Does the patient have a stroke diagnosis?: No Physical Exam Vital Signs: Vital Signs: Last Vital Signs Temp 99.0 F 06/20/24 11:02 Pulse 82 06/20/24 11:02 Resp 19 06/20/24 11:02 BP 136/70 06/20/24 11:02 Pulse Ox 97 06/20/24 11:02 O2 Del Method Room Air 06/20/24 11:02 BMI result Body Mass Index 19.0 General: Not any discomfort. lung sounds - air entry seems improving ,no rales or wheezing heart : rrr, clear S1, S2 abd: soft, abdomen is soft, nontender,bs present neuro patient is alert x3, no focal deficit DS: Data Data Completed and Pending Labs on day of discharge: Laboratory Results - last 24 hr 06/19/24 06/20/24 06/20/24 20:13 07:23 09:13 Sodium 131 L Potassium 4.1 Chloride 98 Carbon Dioxide 25 Anion Gap 12 BUN 34 H Creatinine 0.83 Estim Creat Clear Calc 57.2 Estimated GFR > 60 POC Glucose 218 H 145 H Random Glucose 193 H Calcium 8.6 06/20/24 11:05 Sodium Potassium Chloride Carbon Dioxide Anion Gap BUN Creatinine Estim Creat Clear Calc Estimated GFR POC Glucose 194 H Random Glucose Calcium Preliminary micro results at discharge 06/16/24 15:50 Blood Culture - Preliminary Blood - Venous No growth after 48 hours. 06/16/24 15:50 Blood Culture - Preliminary Blood - Venous No growth after 48 hours. Imaging Chest x-ray: My impression: ct chest :: Right lower lobe consolidation. Additional small multifocal consolidations are noted within the right upper and left lower lobes. Findings are consistent with multifocal pneumonia. Mild right hilar lymphadenopathy, likely reactive in nature. ct abd: Cholelithiasis with moderately distended gallbladder. Correlate with patient NPO status. Otherwise no evidence of acute cholecystitis. Moderate-sized right inguinal hernia containing partial herniation of the cecum. No evidence of bowel obstruction. Mild prostatomegaly with moderately distended urinary bladder. Severe multilevel spondylosis of the lumbar spine with moderate levoscoliosis at L3. ct head: 1. No acute intracranial findings. Discharge Plan Discharge Anticipated Discharge Date/Time: 06/20/24 11:50 Patient Disposition: Home, Self-Care Discharge Diagnosis: pneumonia ,hilar lymphadenopathy, hypomagnesemia Referrals: Bernardo Tyson MD [Physician] - 1 Week Mati Boyd MD [Primary Care Provider] - 1 Week Taj Nair MD [Physician] - 1 Week (right inguinal hernia) Discharge Medications: New cefuroxime axetil 500 mg Tablet 500 mg PO Q12H Qty: 14 0RF azithromycin 500 mg Tablet 500 mg PO Q24H Qty: 3 0RF magnesium oxide 400 mg magnesium tablet 400 mg PO BID Qty: 14 0RF tamsulosin [Flomax] 0.4 mg capsule 0.4 mg PO BEDTIME Qty: 60 0RF Continued primidone 50 mg Tablet 50 mg PO BEDTIME ferrous sulfate 325 mg (65 mg iron) Tablet 325 mg PO DAILY fluticasone propionate 50 mcg/actuation Blister With Device 50 mcg inhalation Q10D Rx Instructions: USE 1 SPRAY TOPICALLY EVERY 10 DAYS TO PREVENT IRRITATION FROM SENSOR atorvastatin 80 mg Tablet 80 mg PO DAILY amlodipine 5 mg Tablet 5 mg PO DAILY gabapentin 300 mg Capsule 300 mg PO TID ezetimibe 10 mg Tablet 10 mg PO DAILY Jardiance 25 mg Tablet 25 mg PO DAILY insulin glargine-yfgn 100 unit/mL (3 mL) Insulin Pen 6 unit subcut BEDTIME glucose 4 gram Tablet,Chewable 16 g PO NEEDED PRN (Reason: Low Blood Sugar) omeprazole 20 mg Capsule,Delayed Release(Dr/Ec) 20 mg PO DAILY@0630 magnesium oxide 250 mg magnesium Tablet 250 mg PO DAILY Januvia 100 mg Tablet 100 mg PO DAILY Held lisinopril 20 mg Tablet 20 mg PO DAILY Hold Instructions: Resume on 07/01/24. Discharge Orders: Discharge Order (Routine); Ordered 06/20/24 Ordered By: Lori Wong Diet: Advance to usual diet Activity on Discharge: As tolerated Stand Alone Forms: Patient Portal Discharge page Print Language: [place] Other Ambulatory Orders: Comprehensive Met. Panel (Routine) Timeframe: 1 Week Facility: [facility] - Location: Laboratory Ordered By: Lori Wong Magnesium (Routine) Timeframe: 1 Week Facility: [facility] - Location: Laboratory Ordered By: Lori Wong Care Plan Goals: Hypovolemic hyponatremia- which was thought to be poor oral intake and diarrhea, symptoms resolved, CTA head and negative, seen by nephrology recommended-avoid thiazide diuretics and medications that can cause hyponatremia. Acute hypomagnesemia: Repleted and resolved. added po magnesium 400 mg po bid. moises improved with hydration: Hold lisinopril for 1 week, repeat BMP and further use as per renal function outpatient. sepsis secondary to multifocal pneumonia: Patient was treated with IV antibiotics seems improved will be going home with p.o. antibiotics. Mild hilar adenopathy thought to be reactive to pneumonia, repeat chest imaging in 3-4 weeks to see resolution of adenopathy as well as pneumonia outpatient. Elevated LFTs/distended gallbladder: LFTs similar range, HIDA scan negative, hepatitis serology negative, discussed with the GI likely elevated LFTs in the setting of sepsis with pneumonia. Monitor LFTs outpatient. In addition patient was seen by surgery for possible hernia and elevated LFTs: Recommended to follow-up out patiently since patient is asymptomatic and does not have any abdominal pain. Health Concerns: Complete Ceftin 500 mg p.o. b.i.d. for 7 days, azithromycin 500 mg q.day for 3 days. moniter cmp and magnesium in 1 week. repeat chest imaging in 3-4 weeks to see resolution of adenopathy as well as pneumonia outpatient. added Flomax for prostatomegaly-consider outpatient urology follow-up. Patient is to follow-up with Nephrology and surgery outpatient. Plan of Treatment: as above. Assessment: as above. Patient Instructions: Pneumonia (DC)
[2024-06-21 06:52] LABS: Legionella Ag Urine Not Detected (Not Detected)
== END 2024-06-20 17:00 | disposition home or self-care (01) | DRG 871 ==
LOC: HO.ED 20:49 → HO.EDOVER 21:14 → HO.IMC 06-17 07:53
PROVIDERS: Nurse Practitioner Acute Care; Physician Assistant; Admitting Provider Physician Assistant; Emergency Provider Emergency Medicine; PCP General Practice; Visit Provider Internal Medicine
DX: A41.9 Sepsis, unspecified organism (principal); J18.9 Pneumonia, unspecified organism; E87.1 Hypo-osmolality and hyponatremia; N17.9 Acute kidney failure, unspecified; E87.21 Acute metabolic acidosis; E86.0 Dehydration; E86.1 Hypovolemia; K40.90 Unilateral inguinal hernia, without obstruction or gangrene, not specified as recurrent; E11.42 Type 2 diabetes mellitus with diabetic polyneuropathy; D50.9 Iron deficiency anemia, unspecified; E78.5 Hyperlipidemia, unspecified; E83.42 Hypomagnesemia; Z20.822 Contact with and (suspected) exposure to COVID-19; Z87.891 Personal history of nicotine dependence; Z79.4 Long term (current) use of insulin; Z79.51 Long term (current) use of inhaled steroids; Z79.899 Other long term (current) drug therapy
CPT/HCPCS: 0241U; 36415; 70450; 71250; 74176; 78226; 80048; 80053; 80061; 80076; 81001; 82436; 82803; 82947; 83605; 83735; 83930; 83935; 84133; 84295; 84300; 85007; 85025; 85027; 86704; 86706; 86709; 86803; 87040; 87340; 87449; 93005; 97162; 99285; A9537; J0456; J0696; J1650; J3475; J7120

== ENCOUNTER → 2024-06-16 13:54 | Outpatient (BNV) | payer OTHER, MEDICARE, SELFPAY | PROVIDERS: Admitting Provider Physician Assistant; Emergency Provider Emergency Medicine; Visit Provider Internal Medicine Cardiovascular Disease | DX: R42 Dizziness and giddiness (principal) | CPT/HCPCS: 93010 ==

== ENCOUNTER → 2024-06-16 15:55 | Outpatient (BNV) | payer OTHER, MEDICARE, SELFPAY | PROVIDERS: Emergency Provider Emergency Medicine; Visit Provider Student in an Organized Health Care Education/Training Program | DX: K82.8 Other specified diseases of gallbladder (principal); R74.01 Elevation of levels of liver transaminase levels | CPT/HCPCS: 70450; 71250; 74176; 78226 ==

== ENCOUNTER → 2024-06-16 21:01 | Outpatient (BNV) | payer OTHER, MEDICARE, SELFPAY | PROVIDERS: Admitting Provider Physician Assistant; Emergency Provider Emergency Medicine; Visit Provider Internal Medicine Hypertension Specialist | DX: E87.20 Acidosis, unspecified (principal); N17.9 Acute kidney failure, unspecified; E87.1 Hypo-osmolality and hyponatremia | CPT/HCPCS: 99223; 99232; 99499 ==

== ENCOUNTER → 2024-06-16 21:01 | Outpatient (BNV) | payer OTHER, MEDICARE, SELFPAY | PROVIDERS: Admitting Provider Physician Assistant; Emergency Provider Emergency Medicine; Visit Provider Nurse Practitioner Acute Care | DX: E83.42 Hypomagnesemia (principal); J18.9 Pneumonia, unspecified organism | CPT/HCPCS: 99223; 99231; 99232; 99239; 99499 ==

== ENCOUNTER → 2024-06-16 21:01 | Outpatient (BNV) | payer OTHER, MEDICARE, SELFPAY | PROVIDERS: Admitting Provider Physician Assistant; Emergency Provider Emergency Medicine; PCP General Practice; Visit Provider Physician Assistant Surgical | DX: K40.90 Unilateral inguinal hernia, without obstruction or gangrene, not specified as recurrent (principal) | CPT/HCPCS: 99222 ==

== ENCOUNTER 2024-06-28 11:59 | Outpatient (REF) | payer OTHER, SELFPAY ==
[2024-06-28 13:58] LABS: Alkaline Phosphatase 119 U/L (39-117); Anion Gap 10 (12-20); Aspartate Amino Transferase 34 U/L (5-37); Bilirubin Total 0.4 mg/dL (0.0-1.0); Blood Urea Nitrogen 25 mg/dL (9-16); Calcium 8.8 mg/dL (8.4-10.2); Carbon Dioxide 27 mmol/L (22-29); Chloride 97 mmol/L (96-108); Estimated Glomerular Filt Rate > 60; Glucose Random 223 mg/dL (60-115); Magnesium 1.3 mg/dL (1.6-2.6); Potassium 4.9 mmol/L (3.3-5.1); Sodium 129 mmol/L (135-145); Total Protein 7.2 g/dL (6.5-8.0)
[2024-06-28 14:09] LABS: Alanine Aminotransferase 28 U/L (0-40)
== END 2024-06-28 12:00 | disposition home or self-care (01) ==
LOC: HO.HMGCLDS 11:59
PROVIDERS: Internal Medicine; PCP General Practice; Visit Provider Hospitalist
DX: R79.89 Other specified abnormal findings of blood chemistry (principal); E83.42 Hypomagnesemia
CPT/HCPCS: 36415; 80053; 83735

== ENCOUNTER 2024-07-16 10:08 | Outpatient (AMB) | payer OTHER, SELFPAY ==
--- NOTE | 2024-07-16 10:09 | MHC.OFFVIS ---
Vital Signs 07/16/24 10:22 Height 5 ft 5 in Weight 124 lb BMI 20.6 BP 138/70 Blood Pressure Location Rt brachial Position Sitting Pulse 101 H Intake Visit Reasons: RIH ? GB Intake Note: Patient seen at [facility] ED for abdominal pain. Reports right inguinal hernia not bothersome. CT Abd/pelvis: 06-16-2024 [employer] Required: No Accompanied by: Amaris Vann spouse Allergies No Known Allergies Allergy (Verified 07/16/24 10:21) HPI Comments Details: Patient was seen by me in hospitalist several weeks ago for among other issues a large symptomatic right inguinal hernia. He presents here to follow up regarding this. Patient was otherwise tolerating a diet. He has regular bowel habits. Chart was reviewed and patient evaluated. Patient was visually impaired. Presents here with a significant other. [facility] Medical History Peripheral neuropathy Diabetes Hyperlipidemia HTN (hypertension) Surgical History History of colonoscopy Social History Household Members: Family Housing: House Patient Tobacco Use Status: Former Tobacco user Cigarettes Per Day: 1 Advance Directives Date on File: 05/05/19 service: No Physical Exam Vital Signs: Last Vital Signs Pulse 101 H 07/16/24 10:22 BP 138/70 07/16/24 10:22 BMI result Body Mass Index 20.6 Chest Other: Chest breath sounds bilaterally, HS 1 in 2 GI Other: Patient was examined both supine and standing with Valsalva. Abdomen is soft, benign. Left groin negative. Genitalia within normal limits. Very large reducible right inguinal hernia. Assessment & Plan Assessment & Plan (1) Right inguinal hernia: Code(s): K40.90 - Unilateral inguinal hernia, without obstruction or gangrene, not specified as recurrent Category: Surgical Plan Risks, benefits, and alternatives of open right inguinal hernia repair with mesh were reviewed with the patient and included but not limited to bleeding, infection, recurrence, numbness, pain, scarring the patient wished to proceed. All questions answered. Arrangements were made for this on a day which is convenient for him. Coding Level of Care Code Est Pt Level 5 (68149) Diagnoses Right inguinal hernia K40.90
[2024-07-16 10:22] VITALS: BP 138/70; PULSE 101; BMI 20.6
--- OUTSIDE RECORDS SUMMARY | 2024-07-16 11:54 | XMS_ITS | Continuity of Care Document ---
Author Name [facility] Organization [facility] Care Team Providers Care Sap Sd Analyst Name Role Phone [facility] Unavailable Unavailable Problems Combined list of problems from Department of Defense and Veterans Affairs facilities. It does not include entries that were removed or entered in error. Problem Status Onset Date Problem Type Date of Resolution Comments Source Age-related nuclear cataracts of both eyes Active Condition Apr 17, 2024 Entered By: DARLIN BALDWIN Comment: Per Eye and [facility] note Dr Rubens Robbins [place] Chronic kidney disease stage 3 due to type 2 diabetes mellitus Active Condition Apr 17 Entered By: DARLIN BALDWIN Comment: 04/15/24 GFR 43 [facility] Depressive disorder Active Condition [place] Diabetes mellitus type 2 Active Condition Apr 17, 2024 Entered By: DARLIN BALDWIN Comment: 04/15/24 A1c 8.6 [facility] Diabetic peripheral neuropathy Active Condition Apr 17, 2024 Entered By: DARLIN BALDWIN Comment: mild, intermittent [facility] Essential hypertension Active Condition [place] Essential tremor Active Condition [facility] Exposure to potentially hazardous substance ([facility] [id number]) Active Condition Jul 11 Entered By: JOYCE MORE Comment: Entered automatically through [employer] Problem List documentation programApr 17, 2024 Entered By: DARLIN BALDWIN Comment: 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: 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 [facility] Former smoker Active Condition May Entered By: DARLIN BALDWIN Comment: ages [age] 2024 Entered By: DARLIN BALDWIN Comment: declines LDCT, AAA screen [facility] Gastroesophageal reflux disease with esophagitis Active Condition [facility] History of surgery Active Condition J an 2024 Entered By: DARLIN BALDWIN Comment: left thumb ligament tear repair 1999 [place] - Iron deficiency anemia Active Condition Apr 17 Entered By: DARLIN BALDWIN Comment: 04/15/24 HGB 11.9 [facility] Legal blindness Active Condition Oct 19, 2016 Entered By: MARY FORBES Comment: Pt no longer drives. Was designated legally blind with poor peripheral vision in June 2016Feb 2024 Entered By: DARLIN BALDWIN Comment: hereditary - sees shapes, colors, shadows [facility] Mixed hyperlipidaemia Active Condition Apr 17, 2024 Entered By: DARLIN BALDWIN Comment: Agent [place] Myopic macular degeneration Active Condition [place] Nonproliferative diabetic retinopathy Active Condition [place] Osteoarthritis of right knee joint [facility] ne[facility] colon done Active Condition Apr 17, 2024 Entered By: DARLIN BALDWIN Comment: colo about 2008; normal; Apr 05, 2021 Entered By: LUDA OLEARY Comment: 01-23-2021 [facility] Valero tubular adenoma no dysplagia, no return [place] Food insecurity Inactive Condition 05/21/2024 [facility] Onychomycosis of toenails Inactive Condition 04/17/2024 [facility] Diagnosis: ICD-10-CM H54.8 Legal blindness, as defined in [place] Active Diagnosis [facility] Diagnosis: ICD-10-CM E11.9 Type 2 diabetes mellitus without complications Active Diagnosis [place] Diagnosis: ICD-10-CM E11.22 Type 2 diabetes mellitus w diabetic chronic kidney disease Active Diagnosis [facility] Diagnosis: ICD-10-CM L60.3 Nail dystrophy [facility] Diagnosis: ICD-10-CM D50.9 Iron deficiency anemia, unspecified Active Diagnosis [place] Diagnosis: ICD-10-CM Z46.0 Encounter for fit/adjst of spectacles and contact lenses Active Diagnosis [facility] Diagnosis: ICD-10-CM G25.0 Essential tremor Active Diagnosis [facility] Diagnosis: ICD-10-CM E11.3299 Type 2 diab with mild nonp rtnop without macular edema, unsp Active Diagnosis [place] Diagnosis: ICD-10-CM N18.9 Chronic kidney disease, unspecified Active Diagnosis [place] Diagnosis: ICD-10-CM Z46.1 Encounter for fitting and adjustment of hearing aid Active Diagnosis [facility] Diagnosis: ICD-10-CM H90.3 Sensorineural hearing loss, bilateral Active Diagnosis [facility] Diagnosis: ICD-10-CM I10 Essential (primary) hypertension Active Diagnosis [place] Diagnosis: ICD-10-CM E11.40 Type 2 diabetes mellitus with diabetic neuropathy, unsp Active Diagnosis [facility] Diagnosis: ICD-10-CM M25.561 Pain in right knee Active Diagnosis [facility] Diagnosis: ICD-10-CM Z23 Encounter for immunization Active Diagnosis [facility] Diagnosis: ICD-10-CM E11.42 Type 2 diabetes mellitus with diabetic polyneuropathy Active Diagnosis [facility] Medications Combined list of outpatient medications from Department of Defense and Veterans Affairs facilities.Medications provided include 1) outpatient medications from the last 15 months, and 2) patient-reported medications. Medication Details Route Status Patient Instructions Prescription Expires Prescription Number Last Dispense Date Ordering Provider Order Date Order Qty Source ALOGLIPTIN 12.5MG TAB TAKE ONE TABLET BY MOUTH ONCE DAILY FOR TYPE 2 DIABETES MELLITUS ORAL DISCONT INUED 05/06/2024 [id number] 4 GASPAR,AL ICE 2023 90 [facility] [facility] AMLODIPINE BESYLATE 5MG TAB TAKE ONE TABLET BY MOUTH ONCE DAILY FOR BLOOD PRESSURE /HEART, DO NOT TAKE WITH GRAPEFRU IT JUICE ORAL ACTIVE 01/29/2025 [id number] 5 MARIELLE AGUILA F 2023 60 [facility] [place] AMLODIPINE BESYLATE 5MG TAB TAKE ONE TABLET BY MOUTH ONCE DAILY FOR BLOOD PRESSURE /HEART, DO NOT TAKE WITH GRAPEFRU IT JUICE ORAL DISCONT INUED 05/06/2024 [id number] 4 GASPAR,AL ICE 2023 90 [facility] [place] ATORVASTATI N CA 80MG TAB TAKE ONE TABLET BY MOUTH DAY FOR CHOLESTE ROL ORAL ACTIVE 09/01/2024 [id number] 5 GASPAR,AL ICE 2023 90 [facility] ATORVASTATI N CA 80MG TAB TAKE ONE TABLET BY MOUTH DAY FOR CHOLESTE ROL ORAL DISCONT INUED 05/19/2024 [id number] 4 GASPAR,AL ICE 2023 90 [facility] AZITHROMYCI N 250MG TAB TAKE TWO TABLETS BY MOUTH EVERY 24 HOURS ORAL ACTIVE 07/21/2024 [id number] 5 CHELO VERONICA HCBOYD 2024 6 [place] AZITHROMYCI N 500MG TAB TAKE ONE TABLET BY MOUTH EVERY 24 HOURS ORAL DISCONT INUED (EDIT) 07/20/2024 [id number] 5 CHELO VERONICA HCBOYD 2024 3 [place] CEFUROXIME AXETIL 500MG TAB TAKE ONE TABLET BY MOUTH EVERY 12 HOURS ORAL ACTIVE 07/20/2024 [id number] 5 CHELO VERONICA HCHAIN 2024 14 [place] DULOXETINE HCL 20MG CAP,EC TAKE ONE CAPSULE BY MOUTH ONCE DAILY FOR NERVE PAIN ORAL DISCONT INUED BY PROVIDE R 09/01/2024 [id number] 4 GASPAR,AL ICE 2023 90 [facility] [place] [facility] DULOXETINE HCL 20MG CAP,EC TAKE ONE CAPSULE BY MOUTH ONCE DAILY FOR NERVE PAIN ORAL DISCONT INUED 05/23/2024 [id number] GASPAR,AL ICE 2023 90 [facility] [place] EMPAGLIFLOZ IN 25MG TAB TAKE ONE TABLET BY MOUTH ONCE DAILY FOR TYPE 2 DIABETES MELLITUS ORAL ACTIVE 09/01/2024 [id number] GASPAR,AL ICE 2023 90 [facility] EZETIMIBE 10MG TAB TAKE ONE TABLET BY MOUTH ONCE DAILY TO LOWER CHOLESTE ROL ORAL ACTIVE 04/18/2025 [id number] 5 Gage BALDWIN 2024 90 [place] EZETIMIBE 10MG TAB TAKE ONE TABLET BY MOUTH ONCE DAILY TO LOWER CHOLESTE ROL ORAL DISCONT INUED 09/01/2024 [id number] 4 GASPAR,AL ICE 2023 90 [facility] EZETIMIBE 10MG TAB TAKE ONE TABLET BY MOUTH ONCE DAILY TO LOWER CHOLESTE ROL ORAL DISCONT INUED 05/19/2024 [id number] 4 GASPAR,AL ICE 2023 90 [facility] FERROUS SO4 325MG TAB TAKE ONE TABLET BY MOUTH ONCE DAILY TO SUPPLEME NT IRON ORAL ACTIVE 02/02/2025 [id number] 5 Gage BALDWIN 2023 100 [place] FERROUS SO4 325MG TAB TAKE ONE TABLET BY MOUTH ONCE DAILY TO SUPPLEME NT IRON ORAL DISCONT INUED 12/08/2023 [id number] GONSALO ESPINOZA 2022 100 [facility] FLUTICASONE PROPIONATE 50MCG/SPRAY SOLN,NASAL, 16GM INSTILL 1 SPRAY TOPICALL Y EVERY 10 DAYS TO PREVENT IRRITATI ON FROM SENSOR TOPICA L ACTIVE 09/01/2024 [id number] 4 GASPAR,AL ICE 2023 1 [facility] GABAPENTIN 300MG CAP TAKE ONE CAPSULE BY MOUTH THREE TIMES A DAY FOR NERVE PAIN CHANGE FROM TABLETS ORAL ACTIVE 09/01/2024 [id number] 5 GASPAR,AL ICE 2023 270 [facility] GABAPENTIN 300MG CAP TAKE ONE CAPSULE BY MOUTH THREE TIMES A DAY FOR NERVE PAIN CHANGE FROM TABLETS ORAL DISCONT INUED 05/23/2024 [id number] GASPAR,AL ICE 2023 270 [facility] GLUCOSE 4GM TAB,CHEW CHEW FOUR TABLETS BY MOUTH ONE TIME NEEDED FOR LOW BLOOD SUGAR ORAL ACTIVE 09/01/2024 [id number] 4 GASPAR,AL ICE 2023 30 [facility] [place] [facility] GLUCOSE 4GM TAB,CHEW CHEW FOUR TABLETS BY MOUTH ONE TIME NEEDED FOR LOW BLOOD SUGAR ORAL DISCONT INUED 05/19/2024 [id number] 4 GASPAR,AL ICE 2023 30 [facility] INSULIN,ASP ART,HUMAN (EQV-NOVOLO G) 100 UNIT/ML,FLE XPEN,3ML INJECT 4 UNITS SUBCUTAN EOUSLY EVERY MORNING AND INJECT 3 UNITS EVERY EVENING BEFORE SUPPER FOR DIABETES SUBCUT ANEOUS DISCONT INUED BY PROVIDE R 09/01/2024 [id number] 4 GASPAR,AL ICE 2023 5 [facility] INSULIN,ASP ART,HUMAN (EQV-NOVOLO G) 100 UNIT/ML,FLE XPEN,3ML INJECT 3 UNITS SUBCUTAN EOUSLY EVERY MORNING AND INJECT 2 UNITS EVERY EVENING BEFORE SUPPER SUBCUT ANEOUS DISCONT INUED (EDIT) 05/19/2024 [id number] 4 GASPAR,AL ICE 2023 5 [facility] [place] INSULIN,ASP ART,HUMAN (EQV-NOVOLO G) 100 UNIT/ML,FLE XPEN,3ML INJECT 3 UNITS SUBCUTAN EOUSLY EVERY MORNING AND INJECT 2 UNITS EVERY EVENING BEFORE SUPPER SUBCUT ANEOUS DISCONT INUED 12/31/2023 [id number] 4 GASPAR,AL ICE 2022 5 [facility] [place] [facility] INSULIN,GLA RGINE,HUMAN 100 UNIT/ML INJ,SOLOSTA R,3ML INJECT 8 UNITS SUBCUTAN EOUSLY ONCE DAILY FOR DIABETES SUBCUT ANEOUS ACTIVE 07/10/2025 [id number] 5 SCHUYLER HARRIS 2024 5 [place] INSULIN,GLA RGINE-YFGN 100UNIT/ML INJ PEN,3ML INJECT 6 UNITS SUBCUTAN EOUSLY ONCE DAILY FOR DIABETES SUBCUT ANEOUS DISCONT INUED BY PROVIDE R 12/05/2024 [id number] 4 SCHUYLER HARRIS 2023 5 [place] INSULIN,GLA RGINE-YFGN 100UNIT/ML INJ PEN,3ML INJECT 3 UNITS SUBCUTAN EOUSLY ONCE DAILY FOR DIABETES SUBCUT ANEOUS DISCONT INUED (EDIT) 09/01/2024 [id number] 4 GASPAR,AL ICE 2023 5 [facility] INSULIN,GLA RGINE-YFGN 100UNIT/ML INJ PEN,3ML INJECT 3 UNITS SUBCUTAN EOUSLY ONCE DAILY FOR DIABETES SUBCUT ANEOUS DISCONT INUED 05/19/2024 [id number] 4 GASPAR,AL ICE 2023 5 [facility] INSULIN,GLA RGINE-YFGN 100UNIT/ML INJ PEN,3ML INJECT 3 UNITS SUBCUTAN EOUSLY ONCE DAILY FOR DIABETES SUBCUT ANEOUS DISCONT INUED 09/23/2023 [id number] 4 GASPAR,AL ICE 2022 5 [facility] LISINOPRIL 10MG TAB TAKE ONE TABLET BY MOUTH ONCE DAILY TO CONTROL BLOOD PRESSURE ORAL ACTIVE 06/27/2025 [id number] TRESSA BOND 2024 90 [place] LISINOPRIL 20MG TAB TAKE ONE TABLET BY MOUTH ONCE DAILY TO CONTROL BLOOD PRESSURE ORAL DISCONT INUED (EDIT) 09/01/2024 [id number] 5 GASPAR,AL ICE 2023 90 [facility] LISINOPRIL 20MG TAB TAKE ONE TABLET BY MOUTH ONCE DAILY TO CONTROL BLOOD PRESSURE ORAL DISCONT INUED 05/19/2024 [id number] 4 GASPAR,AL ICE 2023 90 [facility] LISINOPRIL 20MG TAB TAKE ONE TABLET BY MOUTH ONCE DAILY FOR HIGH BLOOD PRESSURE TO CONTROL BLOOD PRESSURE ORAL DISCONT INUED 12/31/2023 [id number] 4 GASPAR,AL ICE 2022 90 [facility] MAGNESIUM OXIDE 250MG TAB TAKE ONE TABLET BY MOUTH ONCE DAILY ORAL DISCONT INUED (EDIT) 10/02/2024 [id number] 4 AYLAMARIELLE SMYTHMADY F 2023 90 [place] MAGNESIUM OXIDE 250MG TAB TAKE ONE TABLET BY MOUTH ONCE DAILY ORAL DISCONT INUED 05/19/2024 [id number] 4 GASPAR,AL ICE 2023 90 [facility] MAGNESIUM OXIDE 400MG TAB TAKE ONE TABLET BY MOUTH TWICE DAILY ORAL ACTIVE 06/27/2025 [id number] TRESSA BOND 2024 180 [place] MAGNESIUM OXIDE 400MG TAB TAKE ONE TABLET BY MOUTH TWICE DAILY ORAL DISCONT INUED 07/20/2024 [id number] CHELO VERONICA HCHAIN 2024 14 [place] METFORMIN HCL 500MG TAB TAKE ONE TABLET BY MOUTH TWICE DAILY ORAL DISCONT INUED BY PROVIDE R 05/19/2024 [id number] 4 GASPAR,AL ICE 2023 180 [facility] OMEPRAZOLE 20MG CAP,EC TAKE ONE CAPSULE BY MOUTH EVERY MORNING 30 MINUTES BEFORE BREAKFAS T ORAL ACTIVE 04/18/2025 [id number] 5 Gage BALDWIN 2024 90 [place] OMEPRAZOLE 20MG CAP,EC TAKE ONE CAPSULE BY MOUTH EVERY MORNING 30 MINUTES BEFORE BREAKFAS T ORAL DISCONT INUED 02/14/2025 [id number] 4 SCHUYLER HARRIS 2023 90 [place] OMEPRAZOLE 20MG CAP,EC TAKE ONE CAPSULE BY MOUTH EVERY MORNING 30 MINUTES BEFORE BREAKFAS T ORAL DISCONT INUED 05/17/2024 [id number] 4 MARIELLE AGUILA RMMADY F 2023 90 [place] PRIMIDONE 50MG TAB TAKE ONE TABLET BY MOUTH AT BEDTIME TREMOR ORAL ACTIVE 04/06/2025 [id number] 5 aGge BALDWIN 2024 90 [place] PRIMIDONE 50MG TAB TAKE ONE TABLET BY MOUTH AT BEDTIME TREMOR ORAL DISCONT INUED 03/10/2024 [id number] SUKUMAR CAR Y 2022 90 [facility] SITAGLIPTIN (EQV-ZITUVI O) 100MG TAB TAKE ONE TABLET BY MOUTH ONCE DAILY DIABETES ORAL ACTIVE 03/20/2025 [id number] SHANA GASPAR ICE 2023 90 [facility] TAMSULOSIN HCL 0.4MG CAP TAKE ONE CAPSULE BY MOUTH AT BEDTIME ORAL ACTIVE 08/19/2024 [id number] 5 CHELO VERONICA HCHAIN 2024 60 [facility] [place] Immunizations Combined list of available immunizations from the Department of Defense and [facility] facilities. Immunization Series Date Given Administered By Site Reaction Lot Number CVX Code Drug Pile Fabric Knitter Status Comments Source INFLUENZA, HIGH-DOSE, TRIVALENT, PF 2023 SARA DOMINGUEZ RIGHT DELTO ID [id number] 135 complet ed [facility] INFLUENZA, HIGH-DOSE, QUADRIVALENT 2022 LALA STRONG RIGHT DELTO ID [id number] 197 complet ed [facility] INFLUENZA, INJECTABLE, QUADRIVALENT, PRESERVATIVE FREE 2021 150 complet ed [facility] [place] ZOSTER RECOMBINANT 2 2020 187 complet ed [facility] [place] COVID-19 (MODERNA), MRNA, LNP-S, PF, 100 MCG OR 50 MCG DOSE 3 2020 207 complet ed MOD; [id number]; 2 [facility] [place] INFLUENZA VACCINE, QUADRIVALENT, ADJUVANTED 2020 205 complet ed [facility] [place] COVID-19 (MODERNA), MRNA, LNP-S, PF, 100 MCG OR 50 MCG DOSE 2 2020 207 complet ed [facility] INFLUENZA, INJECTABLE, QUADRIVALENT, PRESERVATIVE FREE 2019 150 complet ed [facility] ZOSTER RECOMBINANT 1 2019 187 complet ed [facility] [place] INFLUENZA, INJECTABLE, QUADRIVALENT, PRESERVATIVE FREE 2018 150 complet ed Site: Right Deltoid [place] PNEUMOCOCCAL POLYSACCHARID E [id number] 2018 33 complet ed [place] INFLUENZA, SEASONAL, INJECTABLE 2017 141 complet ed Site: Left Deltoid [place] TDAP 2017 115 complet ed Site: Left Deltoid [place] INFLUENZA, SEASONAL, INJECTABLE 2016 141 complet ed [facility] [place] [facility] FLU,3 YRS (HISTORICAL) 2016 88 complet ed Site: Left Deltoid [place] ZOSTER (SHINGLES) (HISTORICAL) 2015 121 complet ed Proximal Left Arm [place] PNEUMOCOCCAL CONJUGATE PCV 13 2015 133 complet ed [place] FLU,3 YRS (HISTORICAL) 2015 88 complet ed Site: Left Deltoid [place] FLU,3 YRS (HISTORICAL) 2014 88 complet ed [place] FLU,3 YRS (HISTORICAL) 2013 88 complet ed [facility] [place] [facility] Results Combined list of recent chemistry, hematology and other laboratory results from Department of Defense and Veterans Affairs, ranging from 15 months to all on record, depending upon the facility. Order Name Results Value Reference Range Date Interpretation Specimen Comments Source LIPID PANEL FASTING CHOLESTERO L [MASS/VOLU ME] IN SERUM OR PLASMA 105 mg/dL 04/15 Specimen Type: SERUM No comment entered. Ordering Provider: ROXANA BALDWIN Report Released Date/Time: Apr 08, 2024 10:51 AM Reporting Lab: [facility] [address] [address] Performing Lab: [facility] [address] [address] [facility] LIPID PANEL FASTING TRIGLYCERI DE [MASS/VOLU ME] IN SERUM OR PLASMA 50 mg/dL 0 - 150 04/15 Specimen Type: SERUM No comment entered. Ordering Provider: ROXANA BALDWIN Report Released Date/Time: Apr 08, 2024 10:51 AM Reporting Lab: [facility] [address] [address] Performing Lab: [facility] [address] [address] [place] LIPID PANEL FASTING CHOLESTERO L IN LDL [MASS/VOLU ME] IN SERUM OR PLASMA BY CALCULATIO N 49 mg/dL 0 - 129 04/15 Specimen Type: SERUM No comment entered. Ordering Provider: ROXANA BALDWIN Report Released Date/Time: Apr 08, 2024 10:51 AM Reporting Lab: [facility] [address] [address] Performing Lab: [facility] [address] [address] [place] LIPID PANEL FASTING CHOLESTERO L.TOTAL/CH OLESTEROL IN HDL [MASS RATIO] IN SERUM OR PLASMA 2.3 04/15 Specimen Type: SERUM No comment entered. Ordering Provider: ROXANA BALDWIN Report Released Date/Time: Apr 08, 2024 10:51 AM Reporting Lab: [facility] [address] [address] Performing Lab: [facility] [address] [address] [place] LIPID PANEL FASTING CHOLESTERO L IN HDL [MASS/VOLU ME] IN SERUM OR PLASMA 46 mg/dL 40 - 60 04/15 Specimen Type: SERUM No comment entered. Ordering Provider: ROXANA BALDWIN Report Released Date/Time: Apr 08, 2024 10:51 AM Reporting Lab: [facility] [address] [address] Performing Lab: [facility] [address] [address] [place] TSH THYROTROPI N [UNITS/VOL UME] IN SERUM OR PLASMA 1.66 u[IU]/mL 0.35 - 5.00 04/15 Specimen Type: SERUM No comment entered. Ordering Provider: ROXANA BALDWIN Report Released Date/Time: Apr 08, 2024 10:51 AM Reporting Lab: [facility] [address] Performing Lab: [facility] [address] [place] LIVER FUNCTION PROTEIN [MASS/VOLU ME] IN SERUM OR PLASMA 7.1 g/dL 6.0 - 8.3 04/15 Specimen Type: SERUM No comment entered. Ordering Provider: ROXANA BALDWIN Report Released Date/Time: Apr 08, 2024 10:51 AM Reporting Lab: [facility] [address] [address] Performing Lab: [facility] BIRMING[facility]AMTRN [address] [address] [place] LIVER FUNCTION ALBUMIN [MASS/VOLU ME] IN SERUM OR PLASMA 3.5 g/dL 3.5 - 5.0 04/15 Specimen Type: SERUM No comment entered. Ordering Provider: ROXANA BALDWIN Report Released Date/Time: Apr 08, 2024 10:51 AM Reporting Lab: [facility] [address] [address] Performing Lab: [facility] [address] [place] LIVER FUNCTION ALKALINE PHOSPHATAS E [ENZYMATIC ACTIVITY/V OLUME] IN SERUM OR PLASMA 75 U/L 40 - 150 04/15 Specimen Type: SERUM No comment entered. Ordering Provider: ROXANA BALDWIN Report Released Date/Time: Apr 08, 2024 10:51 AM Reporting Lab: [facility] [address] Performing Lab: [facility]ITALRNOL[facility] BIRMINGHAMTRN [facility] [address] [facility] ASPARTATE AMINOTRANS FERASE [ENZYMATIC ACTIVITY/V OLUME] IN SERUM OR PLASMA 23 U/L 5 - 34 04/15 Specimen Type: SERUM No comment entered. Ordering Provider: ROXANA BALDWIN Report Released Date/Time: Apr 08, 2024 10:51 AM Reporting Lab: [address] [address] Performing Lab: [address] [address] [facility] ALANINE AMINOTRANS FERASE [ENZYMATIC ACTIVITY/V OLUME] IN SERUM OR PLASMA 20 U/L 04/15 Specimen Type: SERUM No comment entered. Ordering Provider: ROXANA BALDWIN Report Released Date/Time: Apr 08, 2024 10:51 AM Reporting Lab: [address] [address] Performing Lab: [address] [address] [facility] LIVER FUNCTION BILIRUBIN. TOTAL [MASS/VOLU ME] IN SERUM OR PLASMA 0.3 mg/dL 0.2 - 1.2 04/15 Specimen Type: SERUM No comment entered. Ordering Provider: ROXANA BALDWIN Report Released Date/Time: Apr 08, 2024 10:51 AM Reporting Lab: [address] [address] Performing Lab: [address] [address] [facility] HEMOGLOB IN A1C PANEL HEMOGLOBIN A1C/HEMOGL OBIN.TOTAL IN BLOOD BY HPLC 8.6 4.0 - 5.6 04/15 H Specimen Type: BLOOD Comment: Values obtained from A1C measurement s can vary. For atypical A1C assays, a reported value of 7.0 could actually be between 6.72 and 7.28 if measured by a reference method. A reported value of 9.0 could actually be between 8.73 and 9.27. Ref: http://www. ngsp.org/[place] Pdata.asp Ordering Provider: ROXANA BALDWIN Report Released Date/Time: Apr 08, 2024 10:51 AM Reporting Lab: [address] [address] Performing Lab: [address] [address] [employer] BASIC METABOLI C PANEL (fasting ) UREA NITROGEN [MASS/VOLU ME] IN SERUM OR PLASMA 40 mg/dL 7 - 25 04/15 H Specimen Type: SERUM No comment entered. Ordering Provider: ROXANA BALDWIN Report Released Date/Time: Apr 08, 2024 10:51 AM Reporting Lab: [facility] [address] [address] Performing Lab: [facility] [address] [address] [employer] BASIC METABOLI C PANEL (fasting ) GLUCOSE [MASS/VOLU ME] IN SERUM OR PLASMA 143 mg/dL 65 - 100 04/15 H Specimen Type: SERUM No comment entered. Ordering Provider: ROXANA BALDWIN Report Released Date/Time: Apr 08, 2024 10:51 AM Reporting Lab: [address] [address] Performing Lab: [facility] [address] [address] [place] BASIC METABOLI C PANEL (fasting ) SODIUM [MOLES/VOL UME] IN SERUM OR PLASMA 131 mmol/L 135 - 145 04/15 L Specimen Type: SERUM No comment entered. Ordering Provider: ROXANA BALDWIN Report Released Date/Time: Apr 08, 2024 10:51 AM Reporting Lab: [facility] [address] [address] Performing Lab: [facility] [address] [address] [place] [employer] BASIC METABOLI C PANEL (fasting ) POTASSIUM [MOLES/VOL UME] IN SERUM OR PLASMA 5.5 mmol/L 3.5 - 5.0 04/15 H Specimen Type: SERUM No comment entered. Ordering Provider: ROXANA BALDWIN Report Released Date/Time: Apr 08, 2024 10:51 AM Reporting Lab: [facility] [address] [address] Performing Lab: [facility] [address] [address] [place] BASIC METABOLI C PANEL (fasting ) CHLORIDE [MOLES/VOL UME] IN SERUM OR PLASMA 101 mmol/L 100 - 110 04/15 Specimen Type: SERUM No comment entered. Ordering Provider: ROXANA BALDWIN Report Released Date/Time: Apr 08, 2024 10:51 AM Reporting Lab: [address] [address] Performing Lab: [address] [address] [place] BASIC METABOLI C PANEL (fasting ) CARBON DIOXIDE, TOTAL [MOLES/VOL UME] IN SERUM OR PLASMA 22 meq/L 20 - 30 04/15 Specimen Type: SERUM No comment entered. Ordering Provider: ROXANA BALDWIN Report Released Date/Time: Apr 08, 2024 10:51 AM Reporting Lab: [address] [address] Performing Lab: [address] [address] [place] BASIC METABOLI C PANEL (fasting ) CREATININE [MASS/VOLU ME] IN SERUM OR PLASMA 1.63 mg/dL 0.50 - 1.40 04/15 H Specimen Type: SERUM No comment entered. Ordering Provider: ROXANA BALDWIN Report Released Date/Time: Apr 08, 2024 10:51 AM Reporting Lab: [address] [address] Performing Lab: [address] [address] [place] BASIC METABOLI C PANEL (fasting ) GLOMERULAR FILTRATION RATE/1.73 SQ M.PREDICTE D [VOLUME RATE/AREA] IN SERUM, PLASMA OR BLOOD BY CREATININE -BASED FORMULA (CKD-EPI 2020) 43 mL/min 60 04/15 L Specimen Type: SERUM No comment entered. Ordering Provider: ROXANA BALDWIN Report Released Date/Time: Apr 08, 2024 10:51 AM Reporting Lab: [facility] [address] [facility] [address] Performing Lab: [facility] [address] [facility] [address] [place] MICROALB UMIN CREATINI NE RATIO PANEL MICROALBUM IN/CREATIN INE [MASS RATIO] IN URINE 55.2 mg/g 0 - 29.9 04/15 H Specimen Type: URINE No comment entered. Ordering Provider: ROXANA BALDWIN Report Released Date/Time: Apr 08, 2024 10:51 AM Reporting Lab: [facility]HAMTRN [address] [address] Performing Lab: [facility]ITALRBRYAN [facility]N [address] [address] [place] MICROALB UMIN CREATINI NE RATIO PANEL MICROALBUM IN [MASS/VOLU ME] IN URINE 2.6 mg/dL 04/15 Specimen Type: URINE No comment entered. Ordering Provider: ROXANA BALDWIN Report Released Date/Time: Apr 08, 2024 10:51 AM Reporting Lab: [facility]ITALRBRY[facility]ITALN [address] [address] Performing Lab: [facility]ITALRNOL[facility]HAMTRN [address] [address] [place] MICROALB UMIN CREATINI NE RATIO PANEL CREATININE [MASS/VOLU ME] IN URINE 47.09 mg/dL 04/15 Specimen Type: URINE No comment entered. Ordering Provider: ROXANA BALDWIN Report Released Date/Time: Apr 08, 2024 10:51 AM Reporting Lab: [facility]ITAL[facility]AMTRN [address] [address] Performing Lab: [facility] [address] [address] [place] CBC AND DIFF (AUTO) LEUKOCYTES [#/VOLUME] IN BLOOD BY AUTOMATED COUNT 9.42 10*3/uL 4.50 - 11.00 04/15 Specimen Type: BLOOD No comment entered. Ordering Provider: ROXANA BALDWIN Report Released Date/Time: Apr 08, 2024 10:51 AM Reporting Lab: [facility] [address] [facility] [address] Performing Lab: [facility] [address] [address] [place] CBC AND DIFF (AUTO) ERYTHROCYT ES [#/VOLUME] IN BLOOD BY AUTOMATED COUNT 3.73 10*6/uL 4.23 - 5.66 04/15 L Specimen Type: BLOOD No comment entered. Ordering Provider: ROXANA BALDWIN Report Released Date/Time: Apr 08, 2024 10:51 AM Reporting Lab: [address] [address] Performing Lab: [address] [address] [place] CBC AND DIFF (AUTO) HEMOGLOBIN [MASS/VOLU ME] IN BLOOD 11.9 g/dL 12.8 - 17 04/15 L Specimen Type: BLOOD No comment entered. Ordering Provider: ROXANA BALDWIN Report Released Date/Time: Apr 08, 2024 10:51 AM Reporting Lab: [address] [address] Performing Lab: [address] [address] [place] CBC AND DIFF (AUTO) HEMATOCRIT [VOLUME FRACTION] OF BLOOD BY AUTOMATED COUNT 35.0 39.2 - 50.4 04/15 L Specimen Type: BLOOD No comment entered. Ordering Provider: ROXANA BALDWIN Report Released Date/Time: Apr 08, 2024 10:51 AM Reporting Lab: [address] [address] Performing Lab: [address] [address] [place] CBC AND DIFF (AUTO) MCV [ENTITIC VOLUME] BY AUTOMATED COUNT 93.8 fL 82 - 99 04/15 Specimen Type: BLOOD No comment entered. Ordering Provider: ROXANA BALDWIN Report Released Date/Time: Apr 08, 2024 10:51 AM Reporting Lab: [facility]ITALRNOL[facility]TRN [facility] [address] [facility] [address] Performing Lab: [facility]OSPITALRBRYAN [facility]PITALN [address] [address] [place] CBC AND DIFF (AUTO) MCHC [MASS/VOLU ME] BY AUTOMATED COUNT 34.0 g/dL 30.8 - 35.1 04/15 Specimen Type: BLOOD No comment entered. Ordering Provider: ROXANA BALDWIN Report Released Date/Time: Apr 08, 2024 10:51 AM Reporting Lab: [facility]PITALRBRYAN [facility]PITALN [address] [address] Performing Lab: [facility] [address] [address] [place] CBC AND DIFF (AUTO) PLATELETS [#/VOLUME] IN BLOOD BY AUTOMATED COUNT 249 10*3/uL 140 - 360 04/15 Specimen Type: BLOOD No comment entered. Ordering Provider: ROXANA BALDWIN Report Released Date/Time: Apr 08, 2024 10:51 AM Reporting Lab: [facility]ITALRBRYAN [facility]PITALN [address] [address] Performing Lab: [facility] [address] [address] [place] CBC AND DIFF (AUTO) ERYTHROCYT E DISTRIBUTI ON WIDTH [RATIO] BY AUTOMATED COUNT 12.6 12.0 - 16.0 04/15 Specimen Type: BLOOD No comment entered. Ordering Provider: ROXANA BALDWIN Report Released Date/Time: Apr 08, 2024 10:51 AM Reporting Lab: [facility]PITALRBRYAN [facility]PITALN [address] [address] Performing Lab: [facility] [address] [address] [place] CBC AND DIFF (AUTO) MONOCYTES [#/VOLUME] IN BLOOD BY AUTOMATED COUNT 1.04 10*3/uL 0.30 - 1.10 04/15 Specimen Type: BLOOD No comment entered. Ordering Provider: ROXANA BALDWIN Report Released Date/Time: Apr 08, 2024 10:51 AM Reporting Lab: [facility] [place] [address] [address] Performing Lab: [facility] [place] [address] [address] [place] CBC AND DIFF (AUTO) MCH [ENTITIC MASS] BY AUTOMATED COUNT 31.9 pg 26.2 - 32.6 04/15 Specimen Type: BLOOD No comment entered. Ordering Provider: ROXANA BALDWIN Report Released Date/Time: Apr 08, 2024 10:51 AM Reporting Lab: [facility] [place] [address] [address] Performing Lab: [facility] [address] [address] [place] CBC AND DIFF (AUTO) NEUTROPHIL S/100 LEUKOCYTES IN BLOOD BY AUTOMATED COUNT 67.9 43.7 - 75.8 04/15 Specimen Type: BLOOD No comment entered. Ordering Provider: ROXANA BALDWIN Report Released Date/Time: Apr 08, 2024 10:51 AM Reporting Lab: [facility] [address] [address] Performing Lab: [place] [facility] [place] [address] [address] [place] CBC AND DIFF (AUTO) LYMPHOCYTE S/100 LEUKOCYTES IN BLOOD BY AUTOMATED COUNT 16.6 14.0 - 42.3 04/15 Specimen Type: BLOOD No comment entered. Ordering Provider: ROXANA BALDWIN Report Released Date/Time: Apr 08, 2024 10:51 AM Reporting Lab: [facility] [place] [address] [address] Performing Lab: [place] [facility] [place] [address] [address] [place] CBC AND DIFF (AUTO) MONOCYTES/ 100 LEUKOCYTES IN BLOOD BY AUTOMATED COUNT 11.0 5.1 - 13.7 04/15 Specimen Type: BLOOD No comment entered. Ordering Provider: ROXANA BALDWIN Report Released Date/Time: Apr 08, 2024 10:51 AM Reporting Lab: [facility] [address] [address] Performing Lab: [facility] [address] [address] [place] CBC AND DIFF (AUTO) EOSINOPHIL S/100 LEUKOCYTES IN BLOOD BY AUTOMATED COUNT 3.3 0.4 - 6.8 04/15 Specimen Type: BLOOD No comment entered. Ordering Provider: ROXANA BALDWIN Report Released Date/Time: Apr 08, 2024 10:51 AM Reporting Lab: [facility] [address] [address] Performing Lab: [facility] [address] [address] [place] CBC AND DIFF (AUTO) BASOPHILS/ 100 LEUKOCYTES IN BLOOD BY AUTOMATED COUNT 0.8 0.1 - 2.0 04/15 Specimen Type: BLOOD No comment entered. Ordering Provider: ROXANA BALDWIN Report Released Date/Time: Apr 08, 2024 10:51 AM Reporting Lab: [facility] [address] [address] Performing Lab: [facility] [address] [address] [place] CBC AND DIFF (AUTO) NEUTROPHIL S [#/VOLUME] IN BLOOD BY AUTOMATED COUNT 6.39 10*3/uL 2.20 - 7.60 04/15 Specimen Type: BLOOD No comment entered. Ordering Provider: ROXANA BALDWIN Report Released Date/Time: Apr 08, 2024 10:51 AM Reporting Lab: [facility] [address] [address] Performing Lab: [facility] [address] [address] [place] CBC AND DIFF (AUTO) LYMPHOCYTE S [#/VOLUME] IN BLOOD BY AUTOMATED COUNT 1.56 10*3/uL 1.00 - 3.20 04/15 Specimen Type: BLOOD No comment entered. Ordering Provider: ROXANA BALDWIN Report Released Date/Time: Apr 08, 2024 10:51 AM Reporting Lab: [facility]ITALRL WSTRN [facility] [address] [address] Performing Lab: [facility]ITALUSE[address] [address] [place] CBC AND DIFF (AUTO) EOSINOPHIL S [#/VOLUME] IN BLOOD BY AUTOMATED COUNT 0.31 10*3/uL 0.03 - 0.44 04/15 Specimen Type: BLOOD No comment entered. Ordering Provider: ROXANA BALDWIN Report Released Date/Time: Apr 08, 2024 10:51 AM Reporting Lab: [facility]ITALRNOL[facility]TRN [address] [address] Performing Lab: [facility]OSPITALRBRYAN [facility]ITALN [address] [address] [place] CBC AND DIFF (AUTO) BASOPHILS [#/VOLUME] IN BLOOD BY AUTOMATED COUNT 0.08 10*3/uL 0.01 - 0.13 04/15 Specimen Type: BLOOD No comment entered. Ordering Provider: ROXANA BALDWIN Report Released Date/Time: Apr 08, 2024 10:51 AM Reporting Lab: [facility] HOSPITALRL TRN [address] [address] Performing Lab: [facility]OSPITALRL TRN [facility]USE[address] [address] [place] CBC AND DIFF (AUTO) IMMATURE GRANULOCYT ES/100 LEUKOCYTES IN BLOOD BY AUTOMATED COUNT 0.4 0.0 - 0.7 04/15 Specimen Type: BLOOD No comment entered. Ordering Provider: ROXANA BALDWIN Report Released Date/Time: Apr 08, 2024 10:51 AM Reporting Lab: [facility]ITALRNOL[facility]AMTRN [facility]ITALUSE[address] [address] Performing Lab: [facility]ITALRNOL[facility]INGHAMTRN [facility]ITALUSE[address] [address] [place] CBC AND DIFF (AUTO) IMMATURE GRANULOCYT ES [#/VOLUME] IN BLOOD 0.04 10*3/uL 0.00 - 0.06 04/15 Specimen Type: BLOOD No comment entered. Ordering Provider: ROXANA BALDWIN Report Released Date/Time: Apr 08, 2024 10:51 AM Reporting Lab: [facility]OSPITALRBRYAN [facility]PITALN [address] [address] Performing Lab: [facility]PITALRBRYAN [facility]ITALN [address] [address] [place] CBC AND DIFF (AUTO) NRBC % 0.0 0.0 - 0.0 04/15 Specimen Type: BLOOD No comment entered. Ordering Provider: ROXANA BALDWIN Report Released Date/Time: Apr 08, 2024 10:51 AM Reporting Lab: [facility] [address] [address] Performing Lab: [address] [address] [place] CBC AND DIFF (AUTO) NRBC, ABS 0.00 10*3/uL 0.00 - 0.00 04/15 Specimen Type: BLOOD No comment entered. Ordering Provider: ROXANA BALDWIN Report Released Date/Time: Apr 08, 2024 10:51 AM Reporting Lab: [facility] [address] [address] Performing Lab: [facility] [address] [address] [place] CREATINI NE (eGFR 2020) CREATININE [MASS/VOLU ME] IN SERUM OR PLASMA 1.38 mg/dL 0.50 - 1.40 01/28 Specimen Type: SERUM No comment entered. Ordering Provider: MALISSA AGUILA Report Released Date/Time: Jan 29, 2024 10:42 AM Reporting Lab: [facility] [address] [address] Performing Lab: [facility] [address] [address] [place] CREATINI NE (eGFR 2020) GLOMERULAR FILTRATION RATE/1.73 SQ M.PREDICTE D [VOLUME RATE/AREA] IN SERUM, PLASMA OR BLOOD BY CREATININE -BASED FORMULA (CKD-EPI 2020) 53 mL/min 60 01/28 L Specimen Type: SERUM No comment entered. Ordering Provider: MALISSA AGUILA Report Released Date/Time: Jan 29, 2024 10:42 AM Reporting Lab: [facility]OSPITALRL WSTRN [facility]ITAL[facility] [address] [address] Performing Lab: [facility]OSPITALRL WSTRN [facility] [address] [address] [place] URINALYS IS CLEAN CATCH COLOR OF URINE Light-Ye llow 01/28 Specimen Type: URINE Comment: If Glucose = >500 and Ketones are positive, please alert the Physician. Ordering Provider: MALISSA AGUILA Report Released Date/Time: Jan 29, 2024 11:01 AM Reporting Lab: [facility]ITALRNOL[facility]MINGHAMTRN [facility]ITALUSE[address] [address] Performing Lab: [facility]ITALRNOL[facility]IRMINGHAMTRN [facility]ITALUSE[address] [address] [place] URINALYS IS CLEAN CATCH APPEARANCE OF URINE Clear 01/28 Specimen Type: URINE Comment: If Glucose = >500 and Ketones are positive, please alert the Physician. Ordering Provider: MALISSA AGUILA Report Released Date/Time: Jan 29, 2024 11:01 AM Reporting Lab: [facility]OSPITALRL TRN [facility]ITAL[facility] [address] [address] Performing Lab: [facility]ITALRL TRN [facility] [address] [address] [place] URINALYS IS CLEAN CATCH GLUCOSE [MASS/VOLU ME] IN URINE >1000mg/ dL 01/28 Specimen Type: URINE Comment: If Glucose = >500 and Ketones are positive, please alert the Physician. Ordering Provider: MALISSA AGUILA Report Released Date/Time: Jan 29, 2024 11:01 AM Reporting Lab: [facility]OSPITALRL WSTRN [facility] [address] [address] Performing Lab: [facility]ITALRL WSTRN [facility]CH[facility]ETS [address] [address] [place] URINALYS IS CLEAN CATCH KETONES [MASS/VOLU ME] IN URINE BY TEST STRIP NEGATIVE mg/dL 01/28 Specimen Type: URINE Comment: If Glucose = >500 and Ketones are positive, please alert the Physician. Ordering Provider: MALISSA AGUILA Report Released Date/Time: Jan 29, 2024 11:01 AM Reporting Lab: [facility]ITALRNOL[facility] BIRMINGHAMTRN [facility]ITALUSETS [facility] [address] [facility] [address] Performing Lab: [facility]ITAL[facility] [address] [address] [place] URINALYS IS CLEAN CATCH ERYTHROCYT ES [PRESENCE] IN URINE SEDIMENT BY LIGHT MICROSCOPY NEGATIVE mg/dL 01/28 Specimen Type: URINE Comment: If Glucose = >500 and Ketones are positive, please alert the Physician. Ordering Provider: MALISSA AGUILA Report Released Date/Time: Jan 29, 2024 11:01 AM Reporting Lab: [facility]ITALUSE[address] [address] Performing Lab: [facility]TRN [facility]ITALUSETS [address] [address] [place] URINALYS IS CLEAN CATCH PROTEIN [MASS/VOLU ME] IN URINE BY TEST STRIP NEGATIVE mg/dL 01/28 Specimen Type: URINE Comment: If Glucose = >500 and Ketones are positive, please alert the Physician. Ordering Provider: MALISSA AGUILA Report Released Date/Time: Jan 29, 2024 11:01 AM Reporting Lab: [facility]ITALUS[facility] [address] [address] Performing Lab: [facility]ITALRNOL[facility] B[facility]INGHAMTRN [facility]ITALUS[facility] [address] [address] [place] URINALYS IS CLEAN CATCH NITRITE [PRESENCE] IN URINE NEGATIVE mg/dL 01/28 Specimen Type: URINE Comment: If Glucose = >500 and Ketones are positive, please alert the Physician. Ordering Provider: MALISSA AGUILA Report Released Date/Time: Jan 29, 2024 11:01 AM Reporting Lab: [facility]OSPITALRBRYAN [facility] HOSPITALN [facility]US[facility] [address] [address] Performing Lab: [facility]OSPITALRBRYAN [facility] HOSPITALN [facility]ITALUS[facility] [address] [address] [place] URINALYS IS CLEAN CATCH BILIRUBIN. TOTAL [PRESENCE] IN URINE NEGATIVE mg/dL 01/28 Specimen Type: URINE Comment: If Glucose = >500 and Ketones are positive, please alert the Physician. Ordering Provider: MALISSA AGUILA Report Released Date/Time: Jan 29, 2024 11:01 AM Reporting Lab: [address] [address] Performing Lab: [address] [address] [place] URINALYS IS CLEAN CATCH SPECIFIC GRAVITY OF URINE BY REFRACTOME TRY 1.018 1.016 - 1.022 01/28 Specimen Type: URINE Comment: If Glucose = >500 and Ketones are positive, please alert the Physician. Ordering Provider: MALISSA AGUILA Report Released Date/Time: Jan 29, 2024 11:01 AM Reporting Lab: [address] [address] Performing Lab: [facility] [address] [place] URINALYS IS CLEAN CATCH PH OF URINE BY TEST STRIP 6.0 5.0 - 9.0 01/28 Specimen Type: URINE Comment: If Glucose = >500 and Ketones are positive, please alert the Physician. Ordering Provider: MALISSA AGUILA Report Released Date/Time: Jan 29, 2024 11:01 AM Reporting Lab: [facility]SUSE[address] [address] Performing Lab: [facility] [address] [place] URINALYS IS CLEAN CATCH UROBILINOG EN [MASS/VOLU ME] IN URINE BY TEST STRIP Normalmg /dL <2.0 - 2.0 01/28 Specimen Type: URINE Comment: If Glucose = >500 and Ketones are positive, please alert the Physician. Ordering Provider: MALISSA AGUILA Report Released Date/Time: Jan 29, 2024 11:01 AM Reporting Lab: [facility] [address] [address] Performing Lab: [facility] [address] [address] [place] URINALYS IS CLEAN CATCH LEUKOCYTE ESTERASE [PRESENCE] IN URINE BY TEST STRIP NEGATIVE 01/28 Specimen Type: URINE Comment: If Glucose = >500 and Ketones are positive, please alert the Physician. Ordering Provider: MALISSA AGUILA Report Released Date/Time: Jan 29, 2024 11:01 AM Reporting Lab: [address] [address] Performing Lab: [facility] [address] [address] [place] BASIC METABOLI C PANEL (fasting ) UREA NITROGEN [MASS/VOLU ME] IN SERUM OR PLASMA 27 mg/dL 7 - 25 01/28 H Specimen Type: SERUM Comment: NOTE CHANGE FROM PREVIOUS RESULTS Ordering Provider: MALISSA AGUILA Report Released Date/Time: Jan 25, 2024 01:10 PM Reporting Lab: [facility] [address] [address] Performing Lab: [facility] [address] [address] [place] BASIC METABOLI C PANEL (fasting ) GLUCOSE [MASS/VOLU ME] IN SERUM OR PLASMA 168 mg/dL 65 - 100 01/28 H Specimen Type: SERUM Comment: NOTE CHANGE FROM PREVIOUS RESULTS Ordering Provider: MALISSA AGUILA Report Released Date/Time: Jan 25, 2024 01:10 PM Reporting Lab: [facility] [address] [address] Performing Lab: [facility] [address] [address] [place] BASIC METABOLI C PANEL (fasting ) SODIUM [MOLES/VOL UME] IN SERUM OR PLASMA 133 mmol/L 135 - 145 01/28 L Specimen Type: SERUM Comment: NOTE CHANGE FROM PREVIOUS RESULTS Ordering Provider: MALISSA AGUILA Report Released Date/Time: Jan 25, 2024 01:10 PM Reporting Lab: [facility]PITALRL WSTRN [facility] [address] [address] Performing Lab: [facility]ITALUS[facility] [address] [address] [place] BASIC METABOLI C PANEL (fasting ) POTASSIUM [MOLES/VOL UME] IN SERUM OR PLASMA 4.9 mmol/L 3.5 - 5.0 01/28 Specimen Type: SERUM Comment: NOTE CHANGE FROM PREVIOUS RESULTS Ordering Provider: MALISSA AGUILA Report Released Date/Time: Jan 25, 2024 01:10 PM Reporting Lab: [facility]ITALRL WSTRN [facility]ITALUS[facility] [address] [address] Performing Lab: [facility]ITALUSE[address] [address] [place] BASIC METABOLI C PANEL (fasting ) CHLORIDE [MOLES/VOL UME] IN SERUM OR PLASMA 99 mmol/L 100 - 110 01/28 L Specimen Type: SERUM Comment: NOTE CHANGE FROM PREVIOUS RESULTS Ordering Provider: MALISSA AGUILA Report Released Date/Time: Jan 25, 2024 01:10 PM Reporting Lab: [facility]PITALRL WSTRN [facility]ITAL[facility] [address] [address] Performing Lab: [facility]ITAL[facility] [address] [address] [place] BASIC METABOLI C PANEL (fasting ) CARBON DIOXIDE, TOTAL [MOLES/VOL UME] IN SERUM OR PLASMA 22 meq/L 20 - 30 01/28 Specimen Type: SERUM Comment: NOTE CHANGE FROM PREVIOUS RESULTS Ordering Provider: MALISSA AGUILA Report Released Date/Time: Jan 25, 2024 01:10 PM Reporting Lab: [place] [facility] [place] [address] [address] Performing Lab: [facility] [place] [address] [address] [place] BASIC METABOLI C PANEL (fasting ) CREATININE [MASS/VOLU ME] IN SERUM OR PLASMA 1.36 mg/dL 0.50 - 1.40 01/28 Specimen Type: SERUM Comment: NOTE CHANGE FROM PREVIOUS RESULTS Ordering Provider: MALISSA AGUILA Report Released Date/Time: Jan 25, 2024 01:10 PM Reporting Lab: [facility] [address] [facility] [facility] [address] Performing Lab: [address] [address] [place] [employer] BASIC METABOLI C PANEL (fasting ) GLOMERULAR FILTRATION RATE/1.73 SQ M.PREDICTE D [VOLUME RATE/AREA] IN SERUM, PLASMA OR BLOOD BY CREATININE -BASED FORMULA (CKD-EPI 2020) 54 mL/min 60 01/28 L Specimen Type: SERUM Comment: NOTE CHANGE FROM PREVIOUS RESULTS Ordering Provider: MALISSA AGUILA Report Released Date/Time: Jan 25, 2024 01:10 PM Reporting Lab: [address] [address] Performing Lab: [address] [address] [employer] [facility] Vital Signs Combined list of inpatient and outpatient Vital Signs from Department of Defense and [facility], ranging from 12 months to all on record, depending upon the facility. Vital Sign Value Date Comments Source SYSTOLIC BLOOD PRESSURE 150 06/26/2024 10:34:28 [place] DIASTOLIC BLOOD PRESSURE 80 06/26/2024 10:34:28 [place] PULSE OXIMETRY 96 06/26/2024 10:34:28 [facility] WEIGHT 120 06/26/2024 10:34:28 [facility] [facility] BMI 20 kg/m2 06/26/2024 10:34:[facility] PULSE 93 06/26/2024 10:34:28 [facility] SYSTOLIC BLOOD PRESSURE 146 04/17/2024 10:09:34 [place] DIASTOLIC BLOOD PRESSURE 73 04/17/2024 10:09:34 [place] PULSE OXIMETRY 98 04/17/2024 10:09:34 [place] PULSE 94 04/17/2024 10:09:34 [facility] SYSTOLIC BLOOD PRESSURE 146 01/29/2024 10:33:16 [place] DIASTOLIC BLOOD PRESSURE 76 01/29/2024 10:33:16 [place] PULSE OXIMETRY 99 01/29/2024 10:33:16 [place] WEIGHT 121.2 01/29/2024 10:33:16 [place] BMI 20 kg/m2 01/29/2024 10:33:16 [place] TEMPERATURE 97.6 01/29/2024 10:33:16 [place] PULSE 88 01/29/2024 10[facility]33[facility] SYSTOLIC BLOOD PRESSURE 146 07/24/2023 10:43:37 [place] DIASTOLIC BLOOD PRESSURE 74 07/24/2023 10:43:37 [place] PULSE OXIMETRY 98 07/24/2023 10:43:37 [place] WEIGHT 128 07/24/2023 10:43:37 [place] BMI 21 kg/m2 07/24/2023 10:43:37 [place] PULSE 97 07/24/2023 10:43:37 [place] Encounters Combined list of: 1) Encounters from Department of Veterans Affairs facilities going backup to the last 18 months, not all [place] inpatient encounters are included; 2) Encounters from the Department of [facility] facilities going backup to 280 months. 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, as defined in [place] MICHAEL LENNON 01/16 [facility]P EST MOD 30-39 MIN [id number] Diagnos is: ICD-10- CM E11.42 Type 2 diabete s mellitu s with diabeti c polyneu ropathy STELEA,CAR MEN F 01/20 [facility] [place] [facility] [place] [facility] OFF/OP EST MAY X REQ PHY/QHP [id number] Diagnos is: ICD-10- CM Z23 Encount er for immuniz atBrad Galvan 10/24 /2023 [facility] BHV IVNTJ GRP EA ADDL [id number] 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, [place] defined [place] SANDY LENNON T 01/27 [facility] EST LOW 20-29 MIN 75632-7.63 [id number] Diagnos is: ICD-10- CM M25.561 Pain in right knee STELEA,CAR MEN F 02/16 [place] [facility] HL[facility] BHV IVNTJ GRP EA ADDL [id number] 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 MICHAEL LENNON 02/17 [facility] Outpatient Encounter [id number] 03/01 [facility] HLTH BHV IVNTJ GRP EA ADDL [id number] 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 MICHAEL LENNON 03/10 [facility] Outpatient Encounter [id number] 03/15 [facility] OFFICE O/P EST HI 40-54 MIN [id number] [id number] 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, [place] LISET BAUMAN 03/16 [facility] FIT SPECTACLES MONOFOCAL [id number] Diagnos is: ICD-10- CM Z46.0 Encount er for fit/adj st of spectac les and contact lenses LISET BAUMAN 03/16 [facility] Outpatient Encounter [id number] 04/11 [facility] HLTH [facility] IVNTJ GRP EA ADDL [id number] 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, as defined in [facility] MICHAEL LENNON M 04/14 [facility] PRO PHONE CALL 21-30 MIN [id number] [id number] 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, as defined in [facility] SANDY LENNON ISTOPHER T 04/18 [facility] [place] OFFICE O/P EST LOW 20 MIN [id number] [id number] Diagnos is: ICD-10- CM L60.3 Nail dystrop hy JEANETTE GALVAN ES F 04/20 [place] [facility] HLTH [facility] IVNTJ GRP EA ADDL [id number] 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, as defined in [facility]HER T 04/28 [facility] Outpatient Encounter [id number] 04/28 [facility] SENSORY INTEGRATIO N [id number] [id number] 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, [place] SANDY LENNON ISTOPHER T 05/01 [facility] Outpatient Encounter [id number] 05/05 [facility] Encounter [id number] [id number] 05/05 [facility] Outpatient Encounter [id number] 05/10 [facility] Outpatient Encounter [id number] [id number] 05/11 [facility] HLTH BHV IVNTJ GRP EA ADDL [id number] 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, [place] MICHAEL LENNON 05/12 [facility] Outpatient Encounter [id number] 05/15 [facility] OFFICE O/P EST HI 40 MIN [id number] Diagnos is: ICD-10- CM E11.9 Type 2 diabete s mellitu s without complic ations CHER GASPAR 05/19 [facility] (6[facility] QNHP OL DIG ASSMT&MGMT 5-10 [id number] [id number] 22 Diagnos is: ICD-10- CM E11.9 Type 2 diabete s mellitu s without complic ations LEONARD MITCHELL 05/19 [facility] Outpatient Encounter [id number] 05/21 [facility] Outpatient Encounter [id number] Diagnos is: ICD-10- CM E11.40 Type 2 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, unsp CHER GASPAR CE 05/23 [facility] HC PRO PHONE CALL 21-30 MIN [id number] [id number] 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, as defined in [facility] SANDY LENNON ISTOPHER T 05/23 [facility] Outpatient Encounter [id number] 06/01 [facility] SENSORY INTEGRATIO N [id number] [id number] 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, as defined in [facility] T 06/01 [facility] CASE MANAGEMENT [id number] 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, as defined in [facility] SANDY LENNON ISTOPHER T 06/05 [facility] HLTH BHV IVNTJ GRP EA ADDL [id number] MICHAEL LENNON 06/08 [facility] Outpatient Encounter [id number] 03/08 /2024 [facility] HLTH V IVNTJ GRP EA ADDL [id number] 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, as defined in [facility] 06[facility]22 [facility] IV[facility] ADDL [id number] 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, as defined in [facility] MICHAEL LENNON 06/29 [facility] [place] [facility] [place] OFFICE O/P EST LOW 20 MIN [id number] [id number] Diagnos is: ICD-10- CM L60.3 Nail dystrop hy ROSS,CHARL ES F 07/12 [place] [facility] HLTH [facility] IVNTJ GRP EA ADDL [id number] 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, as defined in [facility] MICHAEL LENNON M 07/13 [facility] Outpatient Encounter [id number] 07/17 [facility] [place] OFFICE O/P EST MOD 30 MIN [id number] [id number] Diagnos is: ICD-10- CM I10 Essenti al (primar y) hyperte nsion STELEA,CAR MEN F 07/23 [place] [facility] HLTH V IVNTJ GRP EA ADDL [id number] 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, as defined in [facility] 07/27 [facility] HEARING AID EXAM BOTH EARS [id number] Diagnos is: ICD-10- CM H90.3 Sensori neural hearing loss, bilater al Arjun WITT CORY E 07/27 [facility] EXTENDED VISUAL FIELD XM [id number] [id number] 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, as defined in [facility] LISET BAUMAN 07/27 [facility] FUNDUS PHOTOGRAPH Y W/I&R [id number] [id number] 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, as defined in [facility] LISET BAUMAN 07/27 [facility] COMPRE OPH EXAM EST PT 1/ [id number] [id number] 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, as defined in [facility] LISET BAUMAN 07/27 [facility] HC PRO PHONE CALL 11-20 MIN [id number] [id number] 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, [place] defined in [place] SANDY LENNON ISTOPHER T 08/03 [facility] HEARING SERVICE [id number] [id number] Diagnos is: ICD-10- CM Z46.1 Encount er for fitting and adjustm ent of hearing aid FELIX VALERO 08/21 [facility] Outpatient Encounter [id number] Diagnos is: ICD-10- CM E11.9 Type 2 diabete s mellitu s without complic ations ERIC FRANCIS M 08/31 [facility] OFFICE O/P EST HI 40 MIN [id number] Diagnos is: ICD-10- CM E11.9 Type 2 diabete s mellitu s without complic ations GASPAR,ALI CE 08/31 [facility] Outpatient Encounter [id number] 08/31 [facility] CONT GLUC MNTR ANALYSIS I&R [id number] [id number] Diagnos is: ICD-10- CM E11.9 Type 2 diabete s mellitu s without complic ations GASPAR,ALI CE 08/31 [facility] [facility] ([facility] QNHP OL DIG ASSMT&MGMT 5-10 [id number] [id number] Diagnos is: ICD-10- CM E11.9 Type 2 diabete s mellitu s without complic ations STEPHENLEONARD N 09/03 [facility] (631GE) [facility] HLTH BHV IVNTJ GRP EA ADDL [id number] 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, as defined in [facility] MICHAEL LENNON 09/14 [facility] HLTH BHV IVNTJ GRP EA ADDL [id number] 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, as defined in [facility] SANDY LENNON ISTOP T 09/21 [facility] Outpatient Encounter [id number] 09/25 [facility] Outpatient Encounter [id number] [id number] 10/18 [facility] [place] OFFICE O/P EST MOD 30 MIN [id number] [id number] Diagnos is: ICD-10- CM L60.3 Nail dystrop hy ROSS,CHARL ES F 10/18 [place] [facility] Outpatient Encounter [id number] [id number]/22 [facility] Outpatient Encounter [id number] [id number] 10/25 [facility] HLTH BHV IVNTJ GRP EA ADDL [id number] 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, as defined in [facility] SANDY LENNON ISTOPHER T 10/26 [facility] HLTH BHV IVNTJ GRP EA ADDL [id number] [id number] 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, as defined in [facility] MICHAEL LENNON 11/09 [facility] HLTH BHV IVNTJ GRP EA ADDL [id number] 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, as defined in [facility] SANDY LENNON ISTOPHER T 11/23 [facility] [facility] [place] MTMS BY PHARM ADDL 15 MIN [id number] [id number] Diagnos is: ICD-10- CM E11.9 Type 2 diabete s mellitu s without complic ations KIMBERLY,TYRON IE 12/04 [facility] [place] DIAB MANAGE TRN PER INDIV [id number] [id number] Diagnos is: ICD-10- CM E11.9 Type 2 diabete s mellitu s without complic ations CHRISLARISA COLMENARES P 12/12 [facility] [place] MTMS BY PHARM ADDL 15 MIN [id number] [id number] Diagnos is: ICD-10- CM E11.9 Type 2 diabete s mellitu s without complic ations KIMBERLY,TYRON IE 12/17 [place] [facility] HLTH BHV IVNTJ GRP EA ADDL [id number] 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, [place] CHRISTIANO MACEDO 12/28 [facility] HLTH BHV IVNTJ GRP EA ADDL [id number] [id number] 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, [place] MICHAEL LENNON 01/11 [facility] [place] Outpatient Encounter [id number] [id number] 01/21 [place] [facility] HC PRO PHONE CALL 5-10 MIN [id number] [id number] 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, [place] MICHAEL LENNON 01/21 [facility] [place] MTMS BY PHARM REAL ESTATE ADMINISTRATIVE ASSISTANT 15 MIN [id number] [id number] Diagnos is: ICD-10- CM E11.9 Type 2 diabete s mellitu s without complic ations KIMBERLY,TYRON IE 01/23 [place] [facility] Outpatient Encounter [id number] 1.01/24 [facility] Outpatient Encounter [id number] 01/25 [facility] HLTH BHV IVNTJ GRP EA ADDL [id number] [id number] 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, [place] defined [place] SANDY LENNON ISTOP T 01/25 [facility] [place] OFFICE O/P EST MOD 30 MIN [id number] [id number] Diagnos is: ICD-10- CM N18.9 Chronic kidney disease , unspeci fied AYLACAR MEN F 01/28 [place] [facility] [place]UNIZATI ON ADMIN 62486-8.63 1. AYLACAR MEN F 01/28 [facility] Out[facility] Encounter [id number] [id number] MICHAEL LENNON 02/01 [facility] Outpatient Encounter [id number] 02/01 [facility] [place] MTMS BY PHARM REAL ESTATE ADMINISTRATIVE ASSISTANT 15 MIN 79931-9.63 [id number] Diagnos is: ICD-10- CM E11.9 Type 2 diabete s mellitu s without complic ations TYRON HARRIS IE 02/06 [place] DIAB MANAGE TRN PER INDIV 19800-2.63 1BY. 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 Diagnos is: ICD-10- CM Z46.0 Encount er for fit/adj st of spectac les and contact lenses CHER DODSON 02/19 [facility] [place] OFFICE O/P EST LOW 20 MIN [id number] [id number] Diagnos is: ICD-10- CM L60.3 Nail dystrop hy JEANETTE GALVAN ES F 02/21 [place] [facility] GROUP THERAPEUTI C PROCEDURES 85367-3.63 1. 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, as defined in [facility] MICHAEL LENNON 02/27 [facility] GROUP THERAPEUTI C PROCEDURES [id number] [id number] 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, as defined in [facility] MICHAEL LENNON 03/04 [place] [facility] [place] [place] [facility] [place] PSYTX W PT 30 MINUTES 04516-0.63 [id number] 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, as defined in [place] Sonia BAKER 03/06 [place] MTMS BY PHARM REAL ESTATE ADMINISTRATIVE ASSISTANT 15 MIN [id number] [id number] Diagnos is: ICD-10- CM E11.329 9 Type 2 diab with mild nonp rtnop without macular edema, unsp KIMBERLY,TYRON IE 03/08 [place] Outpatient Encounter [id number] [id number] 12 03/08 [place] [facility] GROUP THERAPEUTI C PROCEDURES [id number] [id number] 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, as defined in [facility] Sonia BAKER 04/05 [facility] [place] [facility] GROUP THERAPEUTI C PROCEDURES [id number] [id number] 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, as defined in [facility] MICHAEL LENNON 04/12 [facility] [place] OFFICE O/P EST HI 40 MIN 21058-3.63 [id number] Diagnos is: ICD-10- CM G25.0 Essenti al JAKY Arnold C 04/17 [facility] GROUP THERAPEUTI C PROCEDURES [id number] [id number] 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, as defined in [facility] T 04/26 [place] [facility] [place] [facility] [place] MTMS BY PHARM REAL ESTATE ADMINISTRATIVE ASSISTANT 15 MIN 91521-4.63 [id number] Diagnos is: ICD-10- CM E11.9 Type 2 diabete s mellitu s without complic ations TYRON HARRIS 05/03 [facility] [place] [facility] GROUP THERAPEUTI C PROCEDURES [id number] [id number] 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, as defined in [facility] MICHAEL LENNON 05/17 [facility] PH1 ASSMT&MGMT NQHP 11-20 [id number] [id number] 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, as defined in [facility] ISTOPHER T 05/21 [facility] RPR&REFITG SPECT XCP APHAKIA [id number] Diagnos is: ICD-10- CM Z46.0 Encount er for fit/adj st of spectac les and contact lenses DONNABrad ANNEMARIE Scott 05/29 [facility] THERAPEUTI C PROCEDURES [id number] 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, as defined in [place] MICHAEL LENNON M 06/14 [facility] Outpatient Encounter [id number] 06/17 [facility] En[facility] [id number] 06/21 [facility] Out[facility] Encounter [id number] 06/24 [facility] [place] [facility] O/P EST MOD 30 MIN [id number] Diagnos is: ICD-10- CM D50.9 Iron deficie ncy anemia, unspeci Myranda Martinez M 06/26 [place] [facility] O/P EST LOW 20 MIN [id number] Diagnos is: ICD-10- CM L60.3 Nail dystrop hy JEANETTE GALVAN F 06/27 [place] [facility] GROUP THERAPEUTI C PROCEDURES [id number] 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, as defined in [place] SANDY LENNON 06/28 [facility] Out[facility] Encounter [id number] 06/28 [facility] NQHP OL DIG ASSMT&MGMT 5-10 [id number] Diagnos is: ICD-10- CM 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 SOVEROW,CH RISTY A 07/04 [facility] Out[facility] Encounter [id number] [facility] En[facility] [id number] 07/08 [facility] [place] MTMS BY PHARM REAL ESTATE ADMINISTRATIVE ASSISTANT 15 MIN [id number] Diagnos is: ICD-10- CM E11.9 Type 2 diabete s mellitu s without complic ations KIMBERLY,TYRON IE 07/09 [place] [facility] Out[facility] Encounter [id number] 07/11 [facility] GROUP THERAPEUTI C PROCEDURES [id number] 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, as defined in [place] MICHAEL LENNON 07/12 [facility] Social History Combined list of available smoking, tobacco, and other social history from [facility] and [facility] facilities. Social History Type Response Date Comment Source Tobacco smoking status [facility] NEVER USED 01/29/2024 [facility] History of tobacco use PR-TOBACCO FORMER USER 01/20/2023 [place] History of tobacco use PR-TOBACCO FORMER USER 03/29/2021 [place] History of tobacco use PR-TOBACCO FORMER USER 12/19/2019 [facility] History of tobacco use VA-TOBACCO FORMER USER 07/12/2018 [place] History of tobacco use QUIT TOBACCO USE > 7 YEARS AGO 07/04/2017 stopped 7-10 years ago [place] History of tobacco use QUIT TOBACCO USE 1-7 YEARS AGO 10/19/2016 [place] History of tobacco use QUIT TOBACCO USE 1-7 YEARS AGO 02/01/2016 1.5 yrs. [place] History of tobacco use QUIT TOBACCO USE 1-7 YEARS AGO 12/11/2014 [place] History of tobacco use CURRENT SMOKER 02/17/2014 2 CIGARS A DAY [place] Plan of Care List of future care activities from [facility] facilities. Additional future care activities may be listed in the Assessment and Plan section. Date/Time Care Activity Care Activity Detail Facili ty 07/16/2024 AMBULAT[facility] - MEDICINE AMBULATORY - MEDICI [facility] Advance Directives List of completed, amended, or rescinded Advance Directives on record at [facility] facilities. An actual copy of the Directive is not included. Date Advance Directive Provider Source 03/29/2021 ADVANCE DIRECTIVE TYSON STORY
--- OUTSIDE RECORDS SUMMARY | 2024-07-16 11:54 | XMS_ITS | Patient Health Record ---
Author Organization [facility] Address [address] [place] [id number] Care Team Providers Care Appeals Assistant Name Role Phone Celeste Mishra Primary Care Provider Jason Zavaleta Unavailable [phone] Reason For Referral No Information Medications Medication SIG (Take, Route, Frequency, Duration) Notes Start Date End Date Status Ibuprofen PRN Active Primidone 50 MG 1 tablet Orally 1 po qd Active Omeprazole 20 MG 1 capsule 30 minutes before morning meal Orally Once a day for 30 day(s) Active Metoprolol & Diet Manage Prod 50 MG as directed Orally 1 po bid Active amLODIPine Besylate 10 MG 1 tablet Orall y Once a day for 30 day(s) Active Chlorthalidone 25 MG 1/2 tablet in the morning with food Orally Once a day Active Pravastatin Sodium 40 MG 1 tablet Orally Once a day for 30 day(s) Active Tylenol PRN Active Aspir-81 Active Iron Active Lantus Active Lisinopril 20 MG 1 tablet Orally Once a day for 30 day(s) Active Immunizations Vaccine Route Administration Date Status Comme nts Influenza Unknown 12/11/2019 Administered Social History Tobacco Use: Social History Observation Description Date Details (start date - stop date) Current Smoker NA - NA Tobacco Use/Smoking Question Answer Notes Patient is a current smoker How often do you smoke cigarettes? some days, bu t not every day Alcohol Screen Question Answer Notes Did you have a drink contain ing alcohol in the past year? Yes How often did you have a dri nk containing alcohol in the past year? 2 to 4 times a month (2 points) How many drinks did you have on a typical day when you were drinking in the past year? 1 or 2 drinks (0 point) How often did you have 6 or more drinks on one occasion in the past year? Never (0 point) Points 2 Interpretation Negative Section Notes: Cigars ocassionally; maybe t wo beers a week rarely, wine with meal once in a while Problems Problem Type SNOMED Code ICD Code Onset Dates Problem Status W/U Status Risk Notes Problem 562077473 Encounter for screening for malignant neoplasm of colon (Z12.11) Active confirmed Problem 35510132 Diarrhea, unspecified type (R19.7) Active confirmed Plan Of Treatment Future Test Test Name Order Date COLONOSCOPY 12/25/2019 Insurance Providers Payer Name Payer Address Payer Phone Subscriber Number Group Number Insured Name Patient Relationship to Insured Coverage Start Date Coverage End Date [facility] [employer] [address] [place] [id number] [place] KHAN Self - patient is the insured Medical (General) History Medical History History ICD Code IDDM Hypertension Legally Blind - Vision Impaired Denies [place],CVA,Lung disease,renal disease Negative colonoscopy in appr ox. 2009 at [place] and told to do one in 10 years Told of negative stool test at home 2019 --? Cologuard GERD Surgical History Surgery Date(Month/Year)
--- OUTSIDE RECORDS SUMMARY | 2024-07-16 11:54 | XMS_ITS | Encounter Summary ---
Author Name [facility] [place] Organization [facility] [place] Address [address] [place] [id number] Care Team Providers Care Bathhouse Attendant Name Role Phone TRESSA BOND Primary Care Provider Unavail able Insurance Providers: All historical and current Section Date Range: From patient's date of to the date document was created. This section includes the names of all active insurance providers for the patient. Insurance Provider Type of Coverage Plan Name Start of Policy Coverage End of Policy Coverage Group Number Member ID Insurance Provider's Telephone Number Policy Velez's Name Patient's Relationship to Policy Velez MEDICARE (WNR) MEDICARE (M) PART B Jan 01, 2014 PART B [id number] [place] PATIENT MEDICARE (WNR) MEDICARE (M) PART B Jan 01, 2014 PART B [id number] [place] PATIENT MEDICARE (WNR) MEDICARE (M) PART A May 04, 2013 PART A [id number] [place] PATIENT MEDICARE (WNR) MEDICARE (M) PART A May 04, 2013 PART A [id number] [phone] [id number] [place] PATIENT [facility] (R) MEDICARE ADVANTAGE [facility] ([facility]) Apr 03, 2016 [facility] ([facility]) [id number] [phone] [place] PATIENT Selected Encounter This section includes the information on record at [place] for the Encounter. Date/Time Encounter Type Encounter Description Reason Provider Source Jun 26, 2024 10:30 AM OFFICE O/P EST MOD 30 MIN PRIMARY CARE/MEDICINE ICD-10-CM D50.9 Iron deficiency anemia, unspecified ALFA BOND [facility] Encounter Template Text not used by [place] Assessments - Encounter Diagnoses This section includes the primary and secondary diagnoses documented for the Encounter. Date/Time Primary/Secondary Diagnosis Diagnosis Name Provider Source Jul 04, 2024 10:32 AM PRIMARY Iron deficiency anemia, unspecified ALFA BOND [facility] Jul 04, 2024 10:32 AM SECONDARY Acute kidney failure, unspecified ALFA BOND [facility] Jul 04, 2024 10:32 AM SECONDARY Benign prostatic hyperplasia without lower urinry tract symp ALFA BOND [facility] Jul 04, 2024 10:32 AM SECONDARY Chronic kidney disease, stage 3 unspecified ALFA BOND [facility] Jul 04, 2024 10:32 AM SECONDARY Gastro-esophageal reflux dis with esophagitis, without bleed ALFA BOND [facility] Jul 04, 2024 10:32 AM SECONDARY Hypo-osmolality and hyponatremia ALFA BOND [facility] Jul 04, 2024 10:32 AM SECONDARY Mixed hyperlipidemia ALFA BOND [facility] Jul 04, 2024 10:32 AM SECONDARY Other cholelithiasis without obstruction ALFA BOND [facility] Jul 04, 2024 10:32 AM SECONDARY Type 2 diabetes mellitus w diabetic chronic kidney disease ALFA BOND [facility] Jul 04, 2024 10:32 AM SECONDARY Type 2 diabetes mellitus with diabetic polyneuropathy ALFA BOND [facility] Jul 04, 2024 10:32 AM SECONDARY Type 2 diabetes mellitus without complications ALFA BOND [facility] Jul 04, 2024 10:32 AM SECONDARY Unilateral inguinal hernia, w/o obst or gangrene, recurrent ALFA BOND [facility] Jul 04, 2024 10:32 AM SECONDARY Unspecified bacterial pneumonia ALFA BOND [facility] Plan of Treatment: Future Appointments (+ 6 months) and Future Tests (+/- 45 days) The Plan of Treatment section includes future care activities for the [facility] [place] [facility] This section includes future appointments and future orders which are active, pending or scheduled. Future Appointments This section includes appointments that were scheduled to occur 6 months from the date of the Encounter, up to a maximum of 20 appointments. The data comes from all [facility]. Appointment Date/Time Appointment Type Appointme nt Facility Name Jun 27, 2024 11:00 AM [facility] Jul 05, 2024 03:30 PM AMBULATORY - MEDICINE [facility] Jul 09, 2024 03:30 PM AMBULATORY - MEDICINE [facility] Jul 16, 2024 10:30 AM AMBULATORY - MEDICINE [facility] Jul 17, 2024 09:00 AM AMBULATORY - MEDICINE [facility] August 06, 2024 10:30 AM AMBULATORY - MEDICINE [place] [facility] August 06, 2024 11:00 AM AMBULATORY - MEDICINE [place] [facility] August 06, 2024 11:45 AM AMBULATORY - NONE [facility] August 06, 2024 03:30 PM AMBULATORY - MEDICINE [place] [facility] August 29, 2024 11:00 AM AMBULATORY - REHAB MEDICIN E [facility] Sep 25, 2024 10:00 AM [facility] Oct 02, 2024 10:30 AM [facility] Dec 25, 2024 11:00 AM AMBULATORY - MEDICINE [facility] Active, Pending, and Scheduled Orders This section includes a listing of several types of active, pending, and scheduled orders, including clinic medications orders, diagnostic test orders, procedure orders and consult orders; where the start date of the order is 45 days before the date of the Encounter or 45 days after the date of theEncounter. The data comes from all [facility]. Test Date/Time Test Type Test Details Facility Name Jun 26, 2024 12:04 PM Consult Order COMMUNITY CARE-GEN SURGERY Cons Orthodontist's [facility] Jul 08, 2024 04:41 PM Consult Order COMMUNITY CARE-NEPHROLOGY Cons Orthodontist's [facility] Jul 14, 2024 12:00 AM Laboratory - Chemistry Order MICROALBUMIN CREATININE RATIO PANEL URINE (RANDOM) [facility] Jul 14, 2024 12:00 AM Laboratory - Chemistry Order VITAMIN D (25-OH) BLOOD (SST-SERUM) [facility] Jul 14, 2024 12:00 AM Laboratory - Chemistry Order MAGNESIUM BLOOD (SST-SERUM) [facility] Jul 14, 2024 12:00 AM Laboratory - Chemistry Order BASIC METABOLIC PANEL (fasting) BLOOD (SST-SERUM) [facility] Jul 14, 2024 12:00 AM Laboratory - Chemistry Order IRON & TIBC PANEL BLOOD (SST-SERUM) [facility] Jul 14, 2024 12:00 AM Laboratory - Chemistry Order LIVER FUNCTION BLOOD (SST-SERUM) [facility] Jul 14, 2024 12:00 AM Laboratory - Chemistry Order LIPID PANEL FASTING BLOOD (SST-SERUM) [facility] Jul 14, 2024 12:00 AM Laboratory - Chemistry Order HEMOGLOBIN A1C PANEL BLOOD (LAV-BLOOD) [facility] Jul 14, 2024 12:00 AM Laboratory - Chemistry Order TSH BLOOD (SST-SERUM) [facility] Jul 14, 2024 12:00 AM Laboratory - Chemistry Order PSA BLOOD (SST-SERUM) [facility] Jul 15, 2024 12:00 AM Laboratory - Chemistry Order CBC AND DIFF (AUTO) BLOOD (LAV-BLOOD) [facility] Jul 15, 2024 12:00 AM Laboratory - Chemistry Order FERRITIN BLOOD (SST-SERUM) [facility] August 06, 2024 11:45 AM Imaging - General Radiology Order CHEST (3 VIEWS) [facility] Vital Signs: All taken on the encounter date This section contains inpatient and outpatient Vital Signs collected on the date of the Encounter. Date/Time Temperature Pulse Blood Pressure Respiratory Rate SP02 Pain Height Weight Body Mass Index Source Jun 26, 2024 10:34 AM 93 150/80 96 120 20 [facility] [place] Social History: Smoking Status (Most current) and Tobacco Use (All prior to encounter date) This section includes the most current, and the historical, smoking and tobacco- related health factors from the [place] facility where the Encounter took place. Current Smoking Status This section includes the most current smoking, or tobacco-related health factor, from the [place] facility where the Encounter took place. Date/Time Current Smoking Status Comment Facil ity Jan 20, 2023 10:00 AM VA-TOBACCO FORMER USER [facility] Tobacco Use History This section includes a history of the smoking, or tobacco-related health factors, that were collected on or before the date of the Encounter. The data comes from the [place] facility where the Encounter took place. Date/Time Smoking Status/Tobacco Use Comment F acility Jan 20, 2023 10:00 AM VA-TOBACCO QUIT 15 YRS OR MORE [facility] Mar 29, 2021 11:00 AM VA-TOBACCO FORMER USER [facility] Mar 29, 2021 11:00 AM VA-TOBACCO QUIT 5 TO < 15 YRS [facility] Jul 12, 2018 02:39 PM VA-TOBACCO FORMER USER [facility] Jul 12, 2018 02:39 PM VA-TOBACCO QUIT 15 YRS OR MORE [facility] Jul 04, 2017 10:22 AM QUIT TOBACCO USE > 7 YEARS AGO stopped 7-10 years ago [facility] Oct 19, 2016 10:08 AM QUIT TOBACCO USE 1 -7 YEARS AGO [facility] Feb 01, 2016 01:15 PM QUIT TOBACCO USE 1 -7 YEARS AGO 1.5 yrs. [facility] Dec 11, 2014 02:03 PM QUIT TOBACCO USE 1 -7 YEARS AGO [facility] Feb 17, 2014 02:23 PM CURRENT SMOKER 2 CIGARS A DAY [facility] Feb 17, 2014 02:23 PM V1-PT DECLINES TOB ACCO CESSATION [facility] Feb 17, 2014 02:23 PM V1-PT THINKING ABO UT QUIT TOBACCO USE [facility] Advance Directives: All historical and current Section Date Range: From patient's date of to the date document was created. This section includes ALL of a patient's completed or amended [place] Advance and Rescinded Directives. The entries below indicate that a directive exists for the patient, but an actual copy is not included with this document. The data comes from all [facility]. Date Advance Directives Provider Source Mar 29, 2021 ADVANCE DIRECTIVE [facility] Encounter Notes: All associated encounter notes This section contains the clinical notes associated to the Encounter. Date/Time Encounter Note(s) Provider Source Jun 26, 2024 10:20 PM PHYSICIAN NOTE: LOCAL TITLE: NOTE STANDARD TITLE: PHYSICIAN NOTE DATE OF NOTE: JUN 26, 2024@22:20 ENTRY DATE: JUL 04, 2024@00:00:43 AUTHOR: TRESSA BOND EXP COSIGNER: URGENCY: STATUS: COMPLETED Chief complaint:Pt is a 74 year old who comes in for follow up of medical problems as noted below. PMH: Active problems - Computerized Problem List is the source for the followin. Former smoker ages 15-50 declines LDCT, AAA screen 2. Essential tremor 3. ARUNA - Iron deficiency anemia 04/15/24 HGB 11.9 4. Exposure to potentially hazardous substance ([facility] [id number]) Entered automatically through [facility] Problem List documentation program Agent [place] asbestos 5. Osteoarthritis of right knee joint 6. Chronic kidney disease stage 3 due to type 2 diabetes mellitus 04/15/24 GFR 43 7. Diabetes mellitus type 2 04/15/24 A1c 8.6 8. Gastroesophageal reflux disease with esophagitis 9. Legal blindness Pt no longer drives. Was designated legally blind with poor peripheral vision in June 2016 hereditary - sees shapes, colors, shadows 10. Diabetic peripheral neuropathy mild, intermittent 11. Age-related nuclear cataracts of both eyes Per Eye and Las[facility] note Dr Rubens Robbins 12. Nonproliferative diabetic retinopathy 13. Myopic macular degeneration 14. Essential hypertension 15. Mixed hyperlipidaemia 16. Depressive disorder 17. History of surgery left thumb ligament tear repair 1999 18. Screening for malignant neoplasm of colon done 01-23-2021 [facility] [place] tubular adenoma no dysplagia, no return colo about 2008; normal; Allergies: Patient has answered NKA The following VA and Non-VA meds were reconciled with patient: Active and Recently Outpatient Medications (excluding Supplies): Active Outpatient Medications Status = 1) AMLODIPINE BESYLATE 5MG TAB TAKE ONE TABLET BY MOUTH ONCE ACTIVE DAILY FOR BLOOD PRESSURE/HEART, DO NOT TAKE WITH GRAPEFRUIT JUICE Indication: FOR HIGH BLOOD PRESSURE 2) ATORVASTATIN CALCIUM 80MG TAB TAKE ONE TABLET BY MOUTH DAY ACTIVE FOR CHOLESTEROL 3) AZITHROMYCIN 250MG TAB TAKE TWO TABLETS BY MOUTH EVERY 24 ACTIVE HOURS 4) CEFUROXIME AXETIL 500MG TAB TAKE ONE TABLET BY MOUTH EVERY ACTIVE 12 HOURS 5) EMPAGLIFLOZIN 25MG TAB TAKE ONE TABLET BY MOUTH ONCE DAILY ACTIVE Indication: FOR TYPE 2 DIABETES MELLITUS 6) EZETIMIBE 10MG TAB TAKE ONE TABLET BY MOUTH ONCE DAILY TO ACTIVE LOWER CHOLESTEROL Indication: FOR HIGH CHOLESTEROL 7) FERROUS SULFATE 325MG TAB TAKE ONE TABLET BY MOUTH ONCE ACTIVE DAILY Indication: TO SUPPLEMENT IRON 8) FLUTICASONE PROP 50MCG 120D NASAL INHL INSTILL 1 SPRAY ACTIVE TOPICALLY EVERY 10 DAYS Indication: TO PREVENT IRRITATION FROM SENSOR 9) GABAPENTIN 300MG CAP TAKE ONE CAPSULE BY MOUTH THREE TIMES A ACTIVE DAY CHANGE FROM TABLETS Indication: FOR NERVE PAIN 10) GLUCOSE 4GM CHEW TAB CHEW FOUR TABLETS BY MOUTH ONE TIME ACTIVE NEEDED Indication: FOR LOW BLOOD SUGAR 11) INSULIN,GLARGINE-YFGN 100UNIT/ML PEN 3ML INJECT 6 UNITS ACTIVE SUBCUTANEOUSLY ONCE DAILY Indication: FOR DIABETES 12) LISINOPRIL 10MG TAB TAKE ONE TABLET BY MOUTH ONCE DAILY TO ACTIVE CONTROL BLOOD PRESSURE Indication: FOR HIGH BLOOD PRESSURE 13) MAGNESIUM OXIDE 400MG TAB TAKE ONE TABLET BY MOUTH TWICE ACTIVE DAILY Indication: FOR MAGNESIUM SUPPLEMENTATION 14) OMEPRAZOLE 20MG EC CAP TAKE ONE CAPSULE BY MOUTH EVERY ACTIVE MORNING 30 MINUTES BEFORE BREAKFAST 15) PRIMIDONE 50MG TAB TAKE ONE TABLET BY MOUTH AT BEDTIME ACTIVE Indication: TREMOR 16) SITAGLIPTIN (EQV-ZITUVIO) 100MG TAB TAKE ONE TABLET BY MOUTH ACTIVE ONCE DAILY Indication: DIABETES 17) TAMSULOSIN HCL 0.4MG CAP TAKE ONE CAPSULE BY MOUTH AT ACTIVE BEDTIME No Active Remote Medications for this patient On examination: 150/80 (06/26/2024 10:34)97.6 F [36.4 C] (01/29/2024 10:33)18 (01/13/2022 10:17)93 (06/26/2024 10:34)0 (01/13/2022 10:17)X3 BMI: 20.0120 lb [54.43 kg] (06/26/2024 10:34) CC: 2 Mo f/u, post hosp D/C Last Seen in PCP: Apr 2024 HPI: 74 y/o M with PMH of HTN, HLD, IDDM, GERD, cholelithiasis, right inguinal hernia, BPH, CKD3, ARUNA, MDD, ET, LBP, legally blind came to clinic today for F2F visit with his Meredith. This is 1st visit with the by this PCP. is feeling fine and has no new complains now, on his baseline. Tabor developed acute weakness headaches body aches dizziness diarrhea and went to emergency room at [facility]. Found to have multifocal pneumonia with sepsis. Also MOISES hyponatremia hypomagnesemia elevated liver function test. Tabor also has large right inguinal hernia. On CAT scans also found to have cholelithiasis with moderately distended gallbladder, enlarged prostate. Treated with IV antibiotics and replete electrolytes events feels better discharged home on p.o. antibiotics which he finished. Feels fine now denies any SOB. Tabor has some new medications added and some medications held and wants to discuss Needs meds refilled. Pt denies any recent travel, sick contacts, fever, chills, cough, palpitations, CP, SOB, ANGULO, numbness, tingling, weakness, dizziness, abd pain, N/V/D, dysuria, constipation, LE edema, BW changes. No changes in ET, can walk 4+ blocks, can climb 1-2 flight of stairs, denies any orthopnea, PND. Pt is compliant with medications. ROS: as mentioned in HPI PSH: Left thumb ligament tear year 1999 SH: Quit 2013 smoking ; rare alcohol; denies drug use; lives with and his son; FH: M had dementia Outside PCP: no PE: GA: AOx3, elderly male, in NAD, pleasant, HEENT: NC/AT, MMM; Neck: supple, no LNs, no JVD; HRT: normal S1/S2, no MRGs Chest: CTA b/l normal breath sounds, no wheezing Abd: soft, NTTP, BS+; Extremities: no leg edema, no cyanosis b/l , PPP; Groin, RLQ: Large right inguinal hernia, NTTP, no incarceration Labs : Discharge labs June 20, 2024 BMP: BG 194 BUN/Creat 34/0.8 ; GFR >60; Na+131 CA++: WnL Imaging/Tests: none in VA system Assessment/Plan: Multifocal pneumonia June 16, 2024: RLL pneumonia with mild healer lymphadenopathy Status post IV and p.o. antibiotics resolved Will repeat chest x-ray in 1 month time due July 17, 2024 HTN, HLD: Blood pressure elevated in the office. mentioned his blood pressure is always elevated in the doctor's office. Home pressures reported 106/77 On amlodipine 5 mg Lisinopril was held while inpatient. 20 mg Can resume 10 mg lisinopril now Check home blood pressures LDL at goal On Lipitor 80 mg On Zetia 10 mg IDDM: Followed by [place] pharmacy Michelle Galvan Pharm.D. Last A1c 8.6 pharmacy diabetic clinic GERD, cholelithiasis: On omeprazole 20 mg Accidental finding on the CT while in hospital gallbladder stones asymptomatic Will repeat liver function tests for mild elevation while in hospital right inguinal hernia: Patient is asymptomatic Never had a right inguinal pain Monitor for now BPH: accidental finding on CT abdomen pelvis while in hospital Started on Flomax continue CKD3, ARUNA, ET: well-controlled on primidone LBP: Stable chronic CT abdomen outside while in hospital shows severe multilevel spondylosis and moderate level scoliosis Started on magnesium for hypomagnesemia, will repeat labs Records reviewed. New labs, imaging reviewed, discussed, questions answered. Meds refilled. verbalized understanding of the plan and agreed to it. HM: Colonoscopy: Did not discuss today Entered RTC 6 mo or sooner PRN F2F visit Fasting labs prior Addendum: PACT 4 TEAM: Alert to PACT Nurses - Labs as necessary to address clinical status. -Please let know to repeat nonfasting labs per recent hospital discharge instructions, as well as chest x-ray on around July 17, 2024 Orders placed See RTC above Narrative of this note is partially produced using [employer] voice recognition software. Some errors in words, composition, structure are possible. Medication Reconciliation: Outpatient: Has the patient been taking medications as documented in the EMLR? No: Discrepencies were identified. See below. Essential Medication List for Review used to complete this medication reconciliation. INCLUDED IN THIS LIST: Alphabetical list of active outpatient prescriptions dispensed from this [place] (local) and dispensed from another [place] or [facility] facility (remote) as well as inpatient orders (local, pending and active), local clinic medications, locally documented non-VA medications, and local prescriptions that have or been discontinued in the past 90 days. - Discrepancies were identified, addressed, and discussed with the patient/caregiver at this encounter. Discrepancies: see progress note - All changes in medications, including all non-VA/Herbal/OTC medications were entered into CPRS. - If there were any medications the patient should no longer take, they were discontinued. - The patient/caregiver was instructed to update this list, discard old lists, and take this list to the next appointment, whether with a VA or non-VA provider. /kayla/ Tressa Bond MD MD PRIMARY CARE PHYSICIAN Signed: 07/04/2024 10:33 Receipt Acknowledged By: 07/04/2024 11:25 /es/ POLLO SLOAN ADVANCED TRASHMAN 07/04/2024 11:53 /kayla/ JEREMIAS WILHELM LPN Licensed Practical Nurse TRESSA BOND [facility] Jun 26, 2024 10:32 AM PREVENTIVE MEDICIN E NURSING NOTE: LOCAL TITLE: CLINICAL REMINDERS/NURSING STANDARD TITLE: PREVENTIVE MEDICINE NURSING NOTE DATE OF NOTE: JUN 26, 2024@10:32 ENTRY DATE: JUN 26, 2024@10:32:28 AUTHOR: JEREMIAS WILHELM EXP COSIGNER: URGENCY: STATUS: COMPLETED Falls & Incontinence Screen: Falls Screen: 4. No falls within the past year. Incontinence Screen No incontinence. COVID-19 Immunization: Refused Moderna Monovalent COVID-19 vaccine Immunization: COVID-19 (MODERNA), MRNA, LNP-S, PF, 50 MCG/0.5 ML (AGES 12+ YEARS) Refusal Reason: PATIENT DECISION Patient refuses all immunization(s) in the COVID-19 group Date Documented: 06/26/24 10:32 RSV Immunization: Respiratory Syncytial Virus (RSV) Vaccine: Refused GlaxoSmQ Interactive (RSV vaccine, adjuvanted, Arexvy). Immunization: RSV, RECOMBINANT, PROTEIN SUBUNIT RSVPREF3, ADJUVANT RECONSTITUTED, 0.5 ML, PF Refusal Reason: PATIENT DECISION Patient refuses all immunization(s) in the RSV group Date Documented: 06/26/24 10:33 Eye Care At-Risk Screen : Patient identified to be at risk for the following eye condition(s): DIABETIC RETINOPATHY: Diabetes Diagnosis Information: Encounter Diagnosis: 05/03/2024@15:30 E11.9 (ICD-10-CM) Type 2 Diabetes Mellitus without Complications rank: PRIMARY Prov. Narr. - Diabetes mellitus type 2 ([facility] [id number]) MACULAR DEGENERATION: Macular Degeneration Risk Factors Information: Reminder Term: VA-AMD RISK FACTORS Problem Diagnosis: 05/21/2024 H35.30 (ICD-10-CM) Unspecified Macular Degeneration Date Entered: 12/18/2014; Date Last Modified: 05/21/2024 Status: ACTIVE; Priority: UNDEFINED Prov. Narr. - Myopic macular degeneration Action: Patient has a future eye care appointment scheduled within the next 90 days. Date of Appointment: [facility] F[facility]U WITH [facility] [place] /kayla/ JEREMIAS WILHELM LPN Licensed Practical Nurse Signed: 06/26/2024 10:33 JEREMIAS WILHELM [facility]
--- OUTSIDE RECORDS SUMMARY | 2024-07-16 11:54 | XMS_ITS | Encounter Summary ---
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 Name Role Phone TRESSA BOND Primary Care [...] PART B Jan 01, 2014 PART B [id number] [place] KH[place] PATIENT MEDICARE (WNR) MEDICARE (M) PART B Jan 01, 2014 PART B [id number] PAR[place] KHAN PATIENT MEDICARE (WNR) MEDICARE (M) PART A May 04, 2013 PART A [id number] [place] KHAN PATIENT MEDICARE (WNR) MEDICARE (M) PART A May 04, 2013 PART A [id number] PARISH KHAN PATIENT [facility] (WNR) MEDICARE ADVANTAGE [facility] ([facility]) Apr 03, 2016 [facility]) [id number] [phone] NEILAL,PARISH REAL PATIENT Selected Encounter This section includes the information on record at [place] for the Encounter. Date/Time Encounter Type Encounter Description Reason Pro vider Source Jul 11, 2024 04:31 PM Outpatient Encounter COMMUNITY CARE CONSULT IHE Encounter Template Text not used by [place] Plan of Treatment: Future Appointments (+ 6 months) and Future Tests (+/- 45 days) The Plan of Treatment section includes future care activities for the patient from all [place] treatmentfacilities. This section includes future appointments and future orders which are active, pending or scheduled. Future Appointments This section includes appointments that were scheduled to occur 6 months from the date of the Encounter, up to a maximum of 20 appointments. The data comes from all [facility]. Appointment Date/Time Appointment Type Appointme nt Facility Name Jul 16, 2024 10:30 AM AMBULATORY - MEDICINE [place] [facility] Jul 17, 2024 09:00 AM [facility]ORY [facility] August 06, 2024 10:30 AM AMBULATORY - MEDICINE [place] [facility] August 06, 2024 11:00 AM AMBULATORY - MEDICINE [place] [facility] August 06, 2024 11:45 AM AMBULATORY - NONE [place] [facility] [place] [facility] August 06, 2024 03:30 PM AMBULATORY - MEDICINE [place] [facility] August 29, 2024 11:00 AM AMBULATORY - REHAB MEDICIN E [place] [facility] [place] [facility] Sep 25, 2024 10:00 AM [facility]ORY - MEDICINE [facility] Oct 02, 2024 10:30 AM AMB[facility]ATORY - MEDICINE [facility] Dec 25, 2024 11:00 AM [facility]ORY - [facility] Active, Pending, and Scheduled Orders This section includes a listing of several types of active, pending, and scheduled orders, including clinic medications orders, diagnostic test orders, procedure orders and consult orders; where the start date of the order is 45 days before the date of the Encounter or 45 days after the date of theEncounter. The data comes from all [facility]. Test Date/Time Test Type Test Details Facility Name Jun 26, 2024 12:04 PM Consult Order COMMUNITY CARE-GEN SURGERY Cons Incident [facility] Jul 08, 2024 04:41 PM Consult Order [facility]-NEPHROLOGY Cons Incident [facility] Jul 14, 2024 12:00 AM Laboratory - Chemistry Order MICROALBUMIN CREATININE RATIO PANEL URINE (RANDOM) [facility] Jul 14, 2024 12:00 AM Laboratory - Chemistry Order VITAMIN D (25-OH) BLOOD (SST-SERUM) [facility] Jul 14, 2024 12:00 AM Laboratory - Chemistry Order IRON & TIBC PANEL BLOOD (SST-SERUM) [facility] Jul 14, 2024 12:00 AM Laboratory - Chemistry Order BASIC METABOLIC PANEL (fasting) BLOOD (SST-SERUM) [facility] Jul 14, 2024 12:00 AM Laboratory - Chemistry Order MAGNESIUM BLOOD (SST-SERUM) [facility] Jul 14, 2024 12:00 AM Laboratory - Chemistry Order LIPID PANEL FASTING BLOOD (SST-SERUM) [facility] Jul 14, 2024 12:00 AM Laboratory - Chemistry Order LIVER FUNCTION BLOOD (SST-SERUM) [facility] Jul 14, 2024 12:00 AM Laboratory - Chemistry Order TSH BLOOD (SST-SERUM) [facility] Jul 14, 2024 12:00 AM Laboratory - Chemistry Order HEMOGLOBIN A1C PANEL BLOOD (LAV-BLOOD) [facility] Jul 14, 2024 12:00 AM Laboratory - Chemistry Order PSA BLOOD (SST-SERUM) [facility] Jul 15, 2024 12:00 AM Laboratory - Chemistry Order CBC AND DIFF (AUTO) BLOOD (LAV-BLOOD) [facility] Jul 15, 2024 12:00 AM Laboratory - Chemistry Order FERRITIN BLOOD (SST-SERUM) [facility] August 06, 2024 11:45 AM Imaging - General Radiology Order CHEST (3 VIEWS) [facility] Social History: Smoking Status (Most current) and Tobacco Use (All prior to encounter date) This section includes the most current, and the historical, smoking and tobacco- related health factors from the [place] facility where the Encounter took place. Current Smoking Status This section includes the most current smoking, or tobacco-related health factor, from the [place] facility where the Encounter took place. Date/Time Current Smoking Status Comment Facil ity Jan 29, 2024 10:34 AM [place]-TOBACCO NEVER USED [facility] Tobacco Use History This section includes a history of the smoking, or tobacco-related health factors, that were collected on or before the date of the Encounter. The data comes from the [place] facility where the Encounter took place. Date/Time Smoking Status/Tobacco Use Comment F acility Dec 19, 2019 12:00 PM LA-TOBACCO FORMER USER [facility] Dec 19, 2019 12:00 PM LA-TOBACCO QUIT 1 TO < 5 YRS [facility] Advance Directives: All historical and current Section Date Range: From patient's date of to the date document was created. This section includes ALL of a patient's completed or amended [place] Advance and Rescinded Directives. The entries below indicate that a directive exists for the patient, but an actual copy is not included with this document. The data comes from all [place] facilities. Date Advance Directives Provider Source Mar 29, 2021 ADVANCE DIRECTIVE TYSON STORY [facility] Encounter Notes: All associated encounter notes This section contains the clinical notes associated to the Encounter. Date/Time Encounter Note(s) Provider Source Jul 11, 2024 04:31 PM LETTERS: LOCAL TITLE: [facility]-REQUEST FOR SERVICES (RFS) LETTER STANDARD TITLE: LETTERS DATE OF NOTE: JUL 11, 2024@16:31 ENTRY DATE: JUL 11, 2024@16:31:56 AUTHOR: SULMA NIETO COSIGNER: URGENCY: STATUS: COMPLETED [facility] [address] [place] [address] Dear Provider, [place] Information: Patient Name: RICO KHAN Date of : May [facility] has received the request for follow-up visit from you for services that were not originally authorized in the [facility] Administration for this [place]. Upon review, the following determination has been made: Service has been approved. (Authorization # [id number]). The consult is in process; please fax appointment date and time to [phone] to expedite. Should you have questions, please contact us at [phone], [phone] to speak with a patient gate services supervisor. As a reminder, if applicable, return medical records within 30 days for routine services. Sincerely, [facility] SULMA NIETO [facility]
--- OUTSIDE RECORDS SUMMARY | 2024-07-16 11:54 | XMS_ITS | Encounter Summary ---
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 ([facility] Apr 03, 2016 [facility] ([facility]) [id number] [phone] PARISH KHAN PATIENT Selected Encounter This section includes the information on record at [place] for the Encounter. Date/Time Encounter Type Encounter Description Reason Pro vider Source Jan 22, 2024 10:00 AM Outpatient Encounter PRIMARY CARE/MEDICINE IHE Encounter Template Text not used by [place] Plan of Treatment: Future Appointments (+ 6 months) and Future Tests (+/- 45 days) The Plan of Treatment section includes future care activities for the patient from all [place] [facility]. This section includes future appointments and future orders which are active, pending or scheduled. Future Appointments This section includes appointments that were scheduled to occur 6 months from the date of the Encounter, up to a maximum of 20 appointments. The data comes from all [place] treatment facilities. Appointment Date/Time Appointment Type Appointme nt Facility Name Jan 24, 2024 10:00 AM AMBULATORY - MEDICINE [place] [place] [facility] Jan 29, 2024 10:30 AM [facility]ORY - MEDICINE [facility] Feb 07, 2024 09:30 AM AMBULATORY - MEDICINE [place] [place] [facility] Feb 07, 2024 10:00 AM AMBULATORY - NONE [place] [facility] [place] [facility] Feb 14, 2024 01:00 PM AMBULATORY - MEDICINE [facility] Feb 22, 2024 10:30 AM AMBULATORY - MEDICINE [facility] Feb 28, 2024 11:00 AM AMBULATORY - REHAB MEDICIN E [place] [facility] [place] [facility] Mar 06, 2024 10:00 AM AMBULATORY - PSYCHIATRY [facility] Mar 08, 2024 03:00 PM AMBULATORY - MEDICINE [place] [facility] [place] [facility] Mar 08, 2024 03:30 PM AMBULATORY - MEDICINE [place] [facility] [place] [place] [facility] Apr 05, 2024 10:00 AM AMBULATORY - PSYCHIATRY [facility] Apr 17, 2024 10:00 AM AMBULATORY - MEDICINE [facility] May 03, 2024 03:30 PM AMBULATORY - MEDICINE [place] [facility] [place] [place] [facility] May 29, 2024 02:00 PM AMBULATORY - MEDICINE [place] [facility] [place] [place] [facility] Jun 26, 2024 10:30 AM AMBULATORY - MEDICINE [facility] Jun 27, 2024 11:00 AM AMBULATORY - MEDICINE [facility] Jul 05, 2024 03:30 PM AMBULATORY - MEDICINE [place] [place] [facility] Jul 09, 2024 03:30 PM AMBULATORY - [facility] Jul 16, 2024 10:30 AM [facility] Jul 17, 2024 09:00 AM AMBULATORY - MEDICINE [facility] Lab Results: +/- 30 days of the encounter This section includes the Chemistry and Hematology Lab Results on record with OR for the patient. Radiology Reports and Pathology Reports are provided separately, in subsequent sections. Lab Results This section contains the Chemistry/Hematology Results that were resulted 30 days before or 30 daysafter the date of the Encounter. Date/Time Source Result Type Result - Unit Interpretation Reference Range Specimen Type Comment Jan 29, 2024 11:08 AM [facility] CREATININE (eGFR 2020) SERUM Specimen Type: SERUM No comment entered. Ordering Provider: PATY AGUILA Report Released Date/Time: Jan 29, 2024 10:42 AM Reporting Lab: [address] [address] Performing Lab: [address] [address] CREATININE, Serum 1.38 mg/dL 0.50-1.40 eGFR(CKD-EPI 2020) 53 mL/min L >60 Jan 29, 2024 11:08 AM [facility] URINALYSIS CLEAN CATCH URINE Specimen Type: URINE Comment: If Glucose = >500 and Ketones are positive, please alert the Physician. Ordering Provider: PATY AGUILA Report Released Date/Time: Jan 29, 2024 11:01 AM Reporting Lab: [address] [address] Performing Lab: [address] [address] UA COLOR Light-Yellow Yellow UA APPEARANCE Clear Clear UA GLUCOSE >1000 mg/dL Negative UA KETONES NEGATIVE mg/dL Negative UA BLOOD NEGATIVE mg/dL Negative UA PROTEIN NEGATIVE mg/dL Negative UA NITRITE NEGATIVE mg/dL Negative UA BILIRUBIN NEGATIVE mg/dL Negative UA SPECIFIC GRAVITY 1.018 1.016-1.022 UA pH 6.0 5.0-9.0 UA UROBILINOGEN Normal mg/dL <2.0 UA LEUKOCYTE NEGATIVE Negative Jan 29, 2024 11:08 AM [facility] BASIC METABOLIC PANEL (fasting) SERUM Specimen Type: SERUM Comment: NOTE CHANGE FROM PREVIOUS RESULTS Ordering Provider: PATY AGUILA Report Released Date/Time: Jan 25, 2024 01:10 PM Reporting Lab: [facility] [address] [facility] [address] Performing Lab: [facility] [address] [address] UREA NITROGEN 27 mg/dL H 7-25 GLUCOSE 168 mg/dL H 65-100 SODIUM 133 mmol/L L 135-145 POTASSIUM 4.9 mmol/L 3.5-5.0 CHLORIDE 99 mmol/L L 100-110 CO2 22 meq/L 20-30 CREATININE, Serum 1.36 mg/dL 0.50-1.40 eGFR(CKD-EPI 2020) 54 mL/min L >60 Jan 17, 2024 09:39 AM [facility] BASIC METABOLIC PANEL (fasting) SERUM Specimen Type: SERUM Comment: Critical result acknowledged. DR AGUILA 01/17/24@1416 BY Ordering Provider: PATY AGUILA Report Released Date/Time: Jan 11, 2024 08:01 AM Reporting Lab: [facility] [address] [address] Performing Lab: [facility] [address] [address] UREA NITROGEN 42 mg/dL H 7-25 GLUCOSE 187 mg/dL H 65-100 SODIUM 135 mmol/L 135-145 POTASSIUM 5.3 mmol/L H 3.5-5.0 CHLORIDE 100 mmol/L 100-110 CO2 27 meq/L 20-30 CREATININE, Serum 2.62 mg/dL H 0.50-1.40 eGFR(CKD-EPI 2020) 25 mL/min L >60 Jan 17, 2024 09:39 AM [facility] LIVER FUNCTION SERUM Specimen Type: SERUM Comment: Critical result acknowledged. DR AGUILA 01/17/24@1416 BY Ordering Provider: PATY AGUILA Report Released Date/Time: Jan 11, 2024 08:01 AM Reporting [facility]: [facility] [address] [address] Performing Lab: [facility] [address] [address] PROTEIN,TOTAL 7.0 g/dL 6.0-8.3 ALBUMIN 3.5 g/dL 3.5-5.0 ALKALINE PHOSPHATASE 84 U/L 40-150 AST 18 U/L 5-34 ALT 20 U/L BILIRUBIN, TOTAL 0.3 mg/dL 0.2-1.2 Jan 17, 2024 09:39 AM [facility] LIPID PANEL FASTING SERUM Specimen Ty pe: SERUM Comment: Critical result acknowledged. DR AGUILA 01/17/24@1416 BY Ordering Provider: PATY AGUILA Report Released Date/Time: Jan 11, 2024 08:01 AM Reporting Lab: [address] [address] Performing Lab: [address] [address] CHOLESTEROL 120 mg/dL TRIGLYCERIDE 65 mg/dL 0-150 LDL calculated 57 mg/dL 0-129 CHOL/HDL 2.4 HDL CHOLESTEROL 50 mg/dL 40-60 Jan 17, 2024 09:39 AM [facility] CBC AND DIFF (AUTO) BLOOD Specimen Ty pe: BLOOD No comment entered. Ordering Provider: PATY AGUILA Report Released Date/Time: Jan 11, 2024 08:01 AM Reporting Lab: [address] [address] Performing Lab: [address] [address] WBC 8.39 10*3/uL 4.50-11.00 RBC 4.07 10*6/uL L 4.23-5.66 HGB 12.9 g/dL 12.8-17 HCT 38.5 L 39.2-50.4 MCV 94.6 fL 82-99 MCHC 33.5 g/dL 30.8-35.1 PLT 259 10*3/uL 140-360 RDW-CV 12.5 12.0-16.0 MONO, ABS 0.81 10*3/uL 0.30-1.10 MCH 31.7 pg 26.2-32.6 NEUT % 67.9 43.7-75.8 LYMPH % 17.5 14.0-42.3 MONO % 9.7 5.1-13.7 EOS % 3.6 0.4-6.8 BASO % 0.8 0.1-2.0 NEUT, ABS 5.70 10*3/uL 2.20-7.60 LYMPH, ABS 1.47 10*3/uL 1.00-3.20 EOS, ABS 0.30 10*3/uL 0.03-0.44 BASO, ABS 0.07 10*3/uL 0.01-0.13 IMMATURE GRAN % 0.5 0.0-0.7 IMMATURE GRAN, ABS 0.04 10*3/uL 0.00-0.0 6 NRBC % 0.0 0.0-0.0 NRBC, ABS 0.00 10*3/uL 0.00-0.00 Social History: Smoking Status (Most current) and Tobacco Use (All prior to encounter date) This section includes the most current, and the historical, smoking and tobacco- related health factors from the [place] facility where the Encounter took place. Current Smoking Status This section includes the most current smoking, or tobacco-related health factor, from the [place] facility where the Encounter took place. Date/Time Current Smoking Status Comment Facil ity Jan 20, 2023 10:00 AM [place]-TOBACCO FORMER USER [facility] Tobacco Use History This section includes a history of the smoking, or tobacco-related health factors, that were collected on or before the date of the Encounter. The data comes from the [place] facility where the Encounter took place. Date/Time Smoking Status/Tobacco Use Comment F acility Jan 20, 2023 10:00 AM VA-TOBACCO QUIT 15 YRS OR MORE [facility] Mar 29, 2021 11:00 AM VA-TOBACCO FORMER USER [facility] Mar 29, 2021 11:00 AM VA-TOBACCO QUIT 5 TO < 15 YRS [facility] Jul 12, 2018 02:39 PM VA-TOBACCO FORMER USER [facility] Jul 12, 2018 02:39 PM VA-TOBACCO QUIT 15 YRS OR MORE [facility] Jul 04, 2017 10:22 AM QUIT TOBACCO USE > 7 YEARS AGO stopped 7-10 years ago [facility] Oct 19, 2016 10:08 AM QUIT TOBACCO USE 1 -7 YEARS AGO [facility] Feb 01, 2016 01:15 PM QUIT TOBACCO USE 1 -7 YEARS AGO 1.5 yrs. [facility] Dec 11, 2014 02:03 PM QUIT TOBACCO USE 1 -7 YEARS AGO [facility] Feb 17, 2014 02:23 PM CURRENT SMOKER 2 CIGARS A DAY [facility] Feb 17, 2014 02:23 PM V1-PT DECLINES TOB ACCO CESSATION MEDS [facility] Feb 17, 2014 02:23 PM V1-PT THINKING ABO UT QUIT TOBACCO USE [facility] Advance Directives: All historical and current Section Date Range: From patient's date of to the date document was created. This section includes ALL of a patient's completed or amended [place] Advance and Rescinded Directives. The entries below indicate that a directive exists for the patient, but an actual copy is not included with this document. The data comes from all [place] facilities. Date Advance Directives Provider Source Mar 29, 2021 ADVANCE DIRECTIVE TYSON STORY [facility] Radiology Reports: +/- 30 days of the encounter Radiology Reports For cases when an order for radiology services may have been completed prior to the date of the Encounter, the report list includes the Radiology Reports that were completed up to 30 days before dateof the Encounter. For cases when an order for radiology services may have been completed after the date of the Encounter, the report list also includes the Radiology Reports that were completed up to30 days after date of the Encounter. The data comes from all [place] treatment facilities. Date/Time Radiology Report Provider Source Feb 07, 2024 10:01 AM RENAL AND BLADDER ULTRASOUND: RICO KHAN HORTENCIA [id number] -[id number] M Exm Date: FEB 07, 2024@10:01 Req Phys: PATY AGUILA Loc: CWM/SO/PACT EIGHT WH (Req'g Lo Img Loc: ULTRASOUND Service: [facility] [place] [address] (Case 134 COMPLETE) ULTRASOUND KIDNEYS (US Detailed) CPT:81404 Reason for Study: worsening creatinine (Case 135 COMPLETE) ULTRASOUND URINARY BLADDER (US Detailed) CPT:34847 Clinical History: Report Status: Verified Date Reported: FEB 07, 2024 Date Verified: FEB 07, 2024 R Developer E-Sig: Report: ULTRASOUND KIDNEYS [PRINTSET], ULTRASOUND URINARY BLADDER [PRINTSET] Clinical History: Worsening creatinine Comparison: Renal ultrasound from May 05, 2015 Technique: Renal and bladder ultrasound was supervised and protocoled OR facility and images have been sent to OR national teleradiology program for interpretation Findings: A total of 36 images were sent for review. Right kidney: 9.8 cm in length previously measuring 10.7 cm. There is mild hydronephrosis with prominent extrarenal pelvis. No nephrolithiasis or renal mass. Intrarenal flow is present on color Doppler. Left kidney: 9.8 cm in length previously measuring 10.5 cm. There is moderate hydronephrosis. No nephrolithiasis or renal parenchymal mass. Intrarenal flow on color Doppler. Urinary bladder: Normal morphology with a prevoid volume 452 cc. Bilateral ureteral jets are present. Post void residual is moderate corresponding to 163 cc. Prostate gland: The prostate gland is enlarged measuring 5.7 x 4.3 x 4.3 cm corresponding to a volume of 56 cc. Impression: There is mild right and moderate left hydronephrosis. No distal ureteral dilatation was identified at the level of the urinary bladder. Distended urinary bladder with a prevoid volume of 452 cc and a postvoid residual of 163 cc. However, the hydronephrosis was not reevaluated following voiding to determine any changes. Enlarged prostate gland with a volume of 56 cc. If the patient is asymptomatic consider further evaluation by CT urogram. READING PHYSICIAN: Stephanie [id number] 02/07/2024 13:53 EST [facility] National Teleradiology Program [phone] (For Medical Practitioner Use Only) Attention Patients / Veterans: If you have questions or concerns about these test results, please contact your ordering provider or primary care team. Primary Diagnostic Code: SIGNIFICANT ABNORMALITY, ATTN NEEDED Primary Interpreting Staff: RADIOLOGY,OUTSIDE SERVICE, Staff Physician / RADIOLOGY,OUTSIDE SERVICE [facility] Encounter Notes: All associated encounter notes This section contains the clinical notes associated to the Encounter. Date/Time Encounter Note(s) Provider Source Jan 11, 2024 09:57 AM ADMINISTRATIVE NOT E: LOCAL TITLE: ADMINISTRATIVE NOTE STANDARD TITLE: ADMINISTRATIVE NOTE DATE OF NOTE: JAN 11, 2024@09:57 ENTRY DATE: JAN 11, 2024@09:57:06 AUTHOR: WOJCIECH CRUZ COSIGNER: URGENCY: STATUS: COMPLETED [facility] [address] [place] [phone] * RICO KHAN [address], [place] [address] Date: JAN 11, 2024 re: This is a reminder of your upcoming PCP appt with PATY AGUILA. Appointment Date: Jan@10:00 Appointment Type: In-person visit (X)Fasting blood work NON fasting blood work CONFIRMED APPT AND LABWORK WITH THE Sincerely, Office Staff for: PATY AGUILA Primary Care Provider [facility] [address] [place] [id number] T [phone] Upcoming Appointments: 01/22/2024 10:00 CWM/SO/PACT EIGHT 01/24/2024 10:00 CWM/SO/TELE/PHARM/PACT 1 02/14/2024 13:00 CWM/SO/DIABETES EDU1 02/22/2024 10:30 CWM/SO/PODIATRY/ROSS 08/06/2024 10:30 NHM/OPT/VISUAL IMAGING 08/06/2024 11:00 NHM/OPTOMETRY/BAUMAN/ APPOINTMENT ABBREVIATION [place] (SPOPC OR SO = [address]) (GOPC OR GO = [address]) (NHM or NO = [facility]) (VVC - Video Call) (Tel-X Telephone Visit) (TH - Telehealth) /kayla/ WOJCIECH MALLORY Signed: 01/11/2024 09:57 WOJCIECH CRUZ [facility]
--- OUTSIDE RECORDS SUMMARY | 2024-07-16 11:55 | XMS_ITS | Encounter Summary ---
Author Name [facility] [place] [facility] [place] Address [address] [place] [address] Care Team Providers Care Pile Driver Name Role Phone TRESSA BOND Primary Care [...] Name Patient's Relationship to Policy Velez MEDICARE ([facility]) MEDICARE (M) PART B Jan 01, 2014 PART B [id number] [phone] [place] K[place] PATIENT MEDICARE (WNR) MEDICARE (M) PART B Jan 01, 2014 PART B [id number] [place] K[place] PATIENT MEDICARE (WNR) MEDICARE (M) PART A May 04, 2013 PART A [id number] [place] K[place] PATIENT MEDICARE (WNR) MEDICARE (M) PART A May 04, 2013 PART A [id number] [place] K[place]AN PATIENT [facility] (R) MEDICARE ADVANTAGE [facility] ([facility]) Apr 03, 2016 [facility] ([facility]) [id number] [phone] [place] KHAN PATIENT Selected Encounter This section includes the information on record at [place] for the Encounter. Date/Time Encounter Type Encounter Description Reason Pro vider Source Feb 02, 2024 02:23 PM Outpatient Encounter ADMIN PAT ACTIVTIES (MASNONCT) IHE Encounter Template Text not used by ND Plan of Treatment: Future Appointments (+ 6 months) and Future Tests (+/- 45 days) The Plan of Treatment section includes future care activities for the patient from all [place] treatmentfacilities. This section includes future appointments and future orders which are active, pending or scheduled. Future Appointments This section includes appointments that were scheduled to occur 6 months from the date of the Encounter, up to a maximum of 20 appointments. The data comes from all [place] treatment facilities. Appointment Date/Time Appointment Type Appointme nt Facility Name Feb 07, 2024 09:30 AM [facility]ULATORY [facility] Feb 07, 2024 10:00 AM AMBULATORY - NONE [facility] Feb 14, 2024 01:00 PM AMBULATORY - MED[facility] Feb 22, 2024 10:30 AM AMBULATORY - MED[facility] Feb 28, 2024 11:00 AM AMBULATORY - REHAB MEDICIN E [facility] Mar 06, 2024 10:00 AM AMBULATORY - PSYCHIATRY [facility] Mar 08, 2024 03:00 PM AMBULATORY - MEDICINE [facility] Mar 08, 2024 03:30 PM AMBULATORY - MEDICINE [facility] Apr 05, 2024 10:00 AM AMBULATORY - PSYCHIATRY [facility] Apr 17, 2024 10:00 AM AMBULATORY - MED[facility] May 03, 2024 03:30 PM AMBULATORY - MEDICINE [facility] May 29, 2024 02:00 PM AMBULATORY - MEDICINE [facility] Jun 26, 2024 10:30 AM AMBULATORY [facility] MED[facility] Jun 27, 2024 11:00 AM AMBULATORY - MED[facility] Jul 05, 2024 03:30 PM AMBULATORY - MEDICINE [facility] Jul 09, 2024 03:30 PM AMBULATORY - MEDICINE [facility] Jul 16, 2024 10:30 AM AMBULATORY - MEDICINE [facility] Jul 17, 2024 09:00 AM AMBULATORY - MEDICINE [facility] Lab Results: +/- 30 days of the encounter This section includes the Chemistry and Hematology Lab Results on record with [place] for the patient. Radiology Reports and Pathology Reports are provided separately, in subsequent sections. Lab Results This section contains the Chemistry/Hematology Results that were resulted 30 days before or 30 daysafter the date of the Encounter. Date/Time Source Result Type Result - Unit Interpretation Reference Range Specimen Type Comment Jan 29, 2024 11:08 AM [facility] CREATININE (eGFR 2020) SERUM Specimen Type: SERUM No comment entered. Ordering Provider: PATY AGUILA Report Released Date/Time: Jan 29, 2024 10:42 AM Reporting Lab: [address] [address] Performing Lab: [address] [address] CREATININE, Serum 1.38 mg/dL 0.50-1.40 eGFR(CKD-EPI 2020) 53 mL/min L >60 Jan 29, 2024 11:08 AM [facility] URINALYSIS CLEAN CATCH URINE Specimen Type: URINE Comment: If Glucose = >500 and Ketones are positive, please alert the Physician. Ordering Provider: PATY AGUILA Report Released Date/Time: Jan 29, 2024 11:01 AM Reporting Lab: [address] [address] Performing Lab: [address] [address] UA COLOR Light-Yellow Yellow UA APPEARANCE Clear Clear UA GLUCOSE >1000 mg/dL Negative UA KETONES NEGATIVE mg/dL Negative UA BLOOD NEGATIVE mg/dL Negative UA PROTEIN NEGATIVE mg/dL Negative UA NITRITE NEGATIVE mg/dL Negative UA BILIRUBIN NEGATIVE mg/dL Negative UA SPECIFIC GRAVITY 1.018 1.016-1.022 UA pH 6.0 5.0-9.0 UA UROBILINOGEN Normal mg/dL <2.0 UA LEUKOCYTE NEGATIVE Negative Jan 29, 2024 11:08 AM [facility] BASIC METABOLIC PANEL (fasting) SERUM Specimen Type: SERUM Comment: NOTE CHANGE FROM PREVIOUS RESULTS Ordering Provider: PATY AGUILA Report Released Date/Time: Jan 25, 2024 01:10 PM Reporting [facility] [address] [address] Performing Lab: [facility] [address] [address] UREA NITROGEN 27 mg/dL H 7-25 GLUCOSE 168 mg/dL H 65-100 SODIUM 133 mmol/L L 135-145 POTASSIUM 4.9 mmol/L 3.5-5.0 CHLORIDE 99 mmol/L L 100-110 CO2 22 meq/L 20-30 CREATININE, Serum 1.36 mg/dL 0.50-1.40 eGFR(CKD-EPI 2020) 54 mL/min L >60 Jan 17, 2024 09:39 AM [facility] BASIC METABOLIC PANEL (fasting) SERUM Specimen Type: SERUM Comment: Critical result acknowledged. DR AGUILA 01/17/24@1416 BY Ordering Provider: PATY AGUILA Report Released Date/Time: Jan 11, 2024 08:01 AM Reporting [facility]: [facility] [address] [address] Performing Lab: [facility] [address] [address] UREA NITROGEN 42 mg/dL H 7-25 GLUCOSE 187 mg/dL H 65-100 SODIUM 135 mmol/L 135-145 POTASSIUM 5.3 mmol/L H 3.5-5.0 CHLORIDE 100 mmol/L 100-110 CO2 27 meq/L 20-30 CREATININE, Serum 2.62 mg/dL H 0.50-1.40 eGFR(CKD-EPI 2020) 25 mL/min L >60 Jan 17, 2024 09:39 AM [facility] LIVER FUNCTION SERUM Specimen Type: SERUM Comment: Critical result acknowledged. DR AGUILA 01/17/24@1416 BY Ordering Provider: PATY AGUILA Report Released Date/Time: Jan 11, 2024 08:01 AM Reporting [facility]: [facility] [address] [address] Performing Lab: [address] [address] PROTEIN,TOTAL 7.0 g/dL 6.0-8.3 ALBUMIN 3.5 g/dL 3.5-5.0 ALKALINE PHOSPHATASE 84 U/L 40-150 AST 18 U/L 5-34 ALT 20 U/L BILIRUBIN, TOTAL 0.3 mg/dL 0.2-1.2 Jan 17, 2024 09:39 AM [facility] LIPID PANEL FASTING SERUM Specimen Ty pe: SERUM Comment: Critical result acknowledged. DR AGUILA 01/17/24@1416 BY Ordering Provider: PATY AGUILA Report Released Date/Time: Jan 11, 2024 08:01 AM Reporting Lab: [facility] [address] [facility] [address] Performing Lab: [address] [address] CHOLESTEROL 120 mg/dL TRIGLYCERIDE 65 mg/dL 0-150 LDL calculated 57 mg/dL 0-129 CHOL/HDL 2.4 HDL CHOLESTEROL 50 mg/dL 40-60 Jan 17, 2024 09:39 AM [facility] CBC AND DIFF (AUTO) BLOOD Specimen Ty pe: BLOOD No comment entered. Ordering Provider: PATY AGUILA Report Released Date/Time: Jan 11, 2024 08:01 AM Reporting Lab: [facility] [address] [facility] [address] Performing Lab: [address] [address] WBC 8.39 10*3/uL 4.50-11.00 RBC 4.07 10*6/uL [...] Facil ity Jan 29, 2024 10:34 AM [place]-TOBACCO NEVER USED [facility] Tobacco Use History This section includes a history of the smoking, or tobacco-related health factors, that were collected on or before the date of the Encounter. The data comes from the [place] facility where the Encounter took place. Date/Time Smoking Status/Tobacco Use Comment F acility Dec 19, 2019 12:00 PM [place]-TOBACCO FORMER USER [facility] Dec 19, 2019 12:00 PM [place]-TOBACCO QUIT 1 TO < 5 YRS [facility] Advance Directives: All historical and current Section Date Range: From patient's date of to the date document was created. This section includes ALL of a patient's completed or amended [place] Advance and Rescinded Directives. The entries below indicate that a directive exists for the patient, but an actual copy is not included with this document. The data comes from all [place] facilities. Date Advance Directives Provider Source Mar 29, 2021 ADVANCE DIRECTIVE [facility]ON STORY [facility] Radiology Reports: +/- 30 days of the [...] the Encounter. The data comes from all [place] treatment facilities. Date/Time Radiology Report Provider Source Feb 07, 2024 10:01 AM [facility] ULTRASOUND: RICO KHANSELENA [id number] -1950 M Exm Date: FEB 07, 2024@10:01 Req Phys: PATY AGUILA Loc: CWM/SO/PACT EIGHT WH (Req'g Lo Img Loc: ULTRASOUND Service: Unknown [place] [address] (Case 134 COMPLETE) ULTRASOUND KIDNEYS (US Detailed) CPT:50597 Reason for Study: worsening creatinine (Case 135 COMPLETE) ULTRASOUND URINARY BLADDER (US Detailed) CPT:21876 Clinical History: Report Status: Verified Date Reported: FEB 07, 2024 Date Verified: FEB 07, 2024 Softball Core Molder E-Sig: Report: ULTRASOUND KIDNEYS [PRINTSET], ULTRASOUND URINARY BLADDER [PRINTSET] Clinical History: Worsening creatinine Comparison: Renal ultrasound from May 05, 2015 Technique: Renal and bladder ultrasound was supervised and protocoled [place] facility and images have been sent to [place] national teleradiology program for interpretation Findings: A [...] evaluation by CT urogram. READING PHYSICIAN: Stephanie [id number] 02/07/2024 13:53 EST [facility] National Teleradiology Program [phone] (For Medical Practitioner Use Only) Attention Patients / Veterans: If you have questions or concerns about these test results, please contact your ordering provider or primary care team. Primary Diagnostic Code: SIGNIFICANT ABNORMALITY, ATTN NEEDED Primary Interpreting Staff: RADIOLOGY,OUTSIDE SERVICE, Staff Physician / RADIOLOGY,OUTSIDE SERVICE [facility] Encounter Notes: All associated encounter notes This section contains the clinical notes associated to the Encounter. Date/Time Encounter Note(s) Provider Source Feb 02, 2024 02:23 PM PHARMACY NOTE: LOCAL TITLE: PHARMACY CUSTOMER CARE MEDICATION RENEWAL STANDARD TITLE: PHARMACY NOTE DATE OF NOTE: FEB 02, 2024@14:23 ENTRY DATE: FEB 02, 2024@14:23:21 AUTHOR: AKIN ROWE EXP COSIGNER: URGENCY: STATUS: COMPLETED Date: Feb Division: [facility] referred by Pharmacy Call Center for medication renewal: Non-controlled/maintenanc e medication Medications requested: [id number] FERROUS SULFATE 325MG TAB Defer to primary care provider To be mailed . Please review and renew if appropriate. *This note was generated by [facility] Pharmacy Customer Care. If you have any questions or need assistance, do not contact this author. Please refer all questions to your local, on-site pharmacy departments. /kayla/ AKIN ROWE Signed: 02/02/2024 14:24 Receipt Acknowledged By: 02/02/2024 15:32 /kayla/ KIMBERLI LEMUSN RN-BC REGISTERED NURSE 02/02/2024 14:32 /es/ KATHY PENGC CERTIFIED NURSE PRACTITIONER AKIN ROWE [facility]
== END 2024-07-16 10:41 | disposition home or self-care (01) ==
LOC: HO.HGS 10:08
PROVIDERS: PCP General Practice; Visit Provider Surgery
DX: K40.90 Unilateral inguinal hernia, without obstruction or gangrene, not specified as recurrent (principal)
CPT/HCPCS: 99214

== ENCOUNTER → 2024-07-16 10:08 | Outpatient (BNVA) | payer OTHER, SELFPAY | PROVIDERS: PCP General Practice; Visit Provider Surgery | DX: K40.90 Unilateral inguinal hernia, without obstruction or gangrene, not specified as recurrent (principal) | CPT/HCPCS: 99212 ==

== ENCOUNTER 2024-07-17 10:33 | Outpatient (AMB) | payer OTHER, SELFPAY ==
[2024-07-17 10:38] VITALS: BP 136/68; PULSE 109; O2SAT 97; BMI 20.4
--- NOTE | 2024-07-17 10:38 | HO.NEPHOV ---
Vital Signs 07/17/24 10:38 Height 5 ft 5 in Weight 122 lb 6 oz BMI 20.4 BP 136/68 Blood Pressure Location Rt brachial Position Sitting Pulse 109 H Pulse Source Pulse Oximeter Pulse Oximetry (%) 97 Oxygen Delivery Method Room Air Intake Visit Reasons: Referred by [facility] ER/ Conf Allergies No Known Allergies Allergy (Verified 07/17/24 10:40) Medication List - Last Reconciled 07/17/24 by Bernardo Tyson MD amlodipine 5 mg PO DAILY atorvastatin 80 mg PO DAILY empagliflozin (Jardiance) 25 mg PO DAILY ezetimibe 10 mg PO DAILY ferrous sulfate 325 mg PO DAILY fluticasone propionate 50 mcg/actuation 50 mcg inhalation Q10D gabapentin 300 mg PO TID glucose 16 grams PO NEEDED PRN insulin glargine-yfgn 6 units subcut BEDTIME lisinopril 20 mg PO DAILY magnesium oxide 400 mg PO BID omeprazole 20 mg PO DAILY@0630 primidone 50 mg PO BEDTIME sitagliptin 100 mg PO DAILY sitagliptin phosphate (Januvia) 100 mg PO DAILY tamsulosin (Flomax) 0.4 mg PO BEDTIME HPI Comments Details: 74-year-old male with a past medical history significant for insulin-dependent diabetes, HTN, ARUNA, HLD, tremor, reported to the ED due to dizziness, congestion, tactile fever and diarrhea for the past week. He reports he has not been able to eat or drink much at all for the past few days. His has also been experiencing diarrhea. He denies any chest pain, shortness of breath or abdominal pain. No urinary symptoms including hematuria, dysuria or frequency. [facility] Medical History Peripheral neuropathy Diabetes Hyperlipidemia HTN (hypertension) Surgical History History of colonoscopy Social History Household Members: Family Housing: House Patient Tobacco Use Status: Former Tobacco user Cigarettes Per Day: 1 Advance Directives Date on File: 05/05/19 service: No Physical Exam Vital Signs: Last Vital Signs Pulse 109 H 07/17/24 10:38 BP 136/68 07/17/24 10:38 Pulse Ox 97 07/17/24 10:38 Oxygen Delivery Method Room Air 07/17/24 10:38 BMI result Body Mass Index 20.4 Comfortable Neck supple no JVD. Lungs entry equal no rales. Heart S1-S2 heard no gallop or rub. Abdomen soft nontender. Neuro alert awake oriented. No asterixis. Extremities no edema. Results Reviewed Nephrology Results: Hgb 10.4 g/dl (14.0-18.0) L 06/19/24 WBC 12.9 X10*3/uL (4.8-10.8) H 06/19/24 Plt Count 237 X10*3/uL (160-400) 06/19/24 Sodium 129 mmol/L (135-145) L 06/28/24 Potassium 4.9 mmol/L (3.3-5.1) 06/28/24 Chloride 97 mmol/L (96-108) 06/28/24 Carbon Dioxide 27 mmol/L (22-29) 06/28/24 BUN 25 mg/dL (9-16) H 06/28/24 Creatinine 1.16 mg/dL (0.5-1.4) 06/28/24 Calcium 8.8 mg/dL (8.4-10.2) 06/28/24 Urine Protein Trace mg/dL (Neg-Trace) 06/16/24 Assessment & Plan Assessment & Plan (1) Acute hyponatremia: Code(s): E87.1 - Hypo-osmolality and hyponatremia Category: Medical Plan MOISES due to hypoperfusion. Renal function is improved and creatinine is back to baseline to around 1.1 mg/dL. Chronic hyponatremia due to excessive free water intake. He was non osmotic ADH release. Discussed importance of oral free water restriction. Recheck serum sodium ordered. Orders: Orders Basic Metabolic Panel Today E87.1 - Hypo-osmolality and hyponatremia Coding Level of Care Code Est Pt Level 4 (93515) Diagnoses Acute hyponatremia E87.1
--- OUTSIDE RECORDS SUMMARY | 2024-07-17 12:26 | XMS_ITS ---
[place] GROUP THERAPEUTIC PROCEDURES [place] [facility] Encounter Summary Created on: July 17, 2024 RICO KHAN : 1950 Sex: Male Author Name [facility] [place] [facility] [place] [facility] [place] Address [address] [place] [id number] Care Team Providers Care Counter Help Name Role Phone TRESSA BOND Primary Care [...] PART B Jan 01, 2014 PART B [id number] [place] PATIENT MEDICARE (WNR) MEDICARE (M) PART B Jan 01, 2014 PART B [id number] [place] PATIENT MEDICARE (WNR) MEDICARE (M) PART A May 04, 2013 PART A [id number] [place] PATIENT MEDICARE (WNR) MEDICARE (M) PART A May 04, 2013 PART A [id number] [place] PATIENT [facility] (WNR) MEDICARE ADVANTAGE [facility] ([facility]) Apr 03, 2016 [facility] ([facility]) [id number] [phone] NEILAL,PARISH REAL PATIENT Selected Encounter This section includes the information on record at [place] for the Encounter. Date/Time Encounter Type Encounter Description Reason Provider Source Jul 12, 2024 10:00 AM GROUP THERAPEUTIC PROCEDURES VIST COORDINATOR ICD-10-CM H54.8 Legal blindness, as defined in [place] KEKE LENNON [facility] Encounter Template Text not used by [place] Assessments - Encounter Diagnoses This section includes the primary and secondary diagnoses documented for the Encounter. 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 This section includes future appointments and future orders which are active, pending or scheduled. Future Appointments This section includes appointments that were scheduled to occur 6 months from the date of the Encounter, up to a maximum of 20 appointments. The data comes from all [place] treatment facilities. Appointment Date/Time Appointment Type Appointme nt Facility Name Jul 16, 2024 10:30 AM AMBULATORY - MEDICINE [place] [facility] [facility] Jul 17, 2024 09:00 AM [facility] August 06, 2024 10:30 AM AMBULATORY - MEDICINE [place] [facility] [facility] August 06, 2024 11:00 AM AMBULATORY - MEDICINE [place] [facility] [place] [facility] August 06, 2024 11:45 AM AMBULATORY - NONE [place] [facility] [place] [facility] August 06, 2024 03:30 PM AMBULATORY - MEDICINE [place] [facility] [facility] August 29, 2024 11:00 AM AMBULATORY - REHAB MEDICIN [place] [facility] [place] [facility] Sep 25, 2024 10:00 AM [facility] Oct 02, 2024 10:30 AM [facility]ATORY [facility] Oct 16, 2024 10:00 AM AMBULATORY [facility] Dec 25, 2024 11:00 AM AMBULATORY - MEDICINE [facility] Active, Pending, and Scheduled Orders This section includes a listing of several types of active, pending, and scheduled orders, including clinic medications orders, diagnostic test orders, procedure orders and consult orders; where the start date of the order is 45 days before the date of the Encounter or 45 days after the date of theEncounter. The data comes from all [facility] facilities. Test Date/Time Test Type Test Details Facility Name Jun 26, 2024 12:04 PM Consult Order [facility] SURGERY Cons Development Technical Lead's Choice JEWETT Jul 08, 2024 04:41 PM Consult Order [facility]-NEPHROLOGY Cons Development Technical Lead's Choice JEWETT Jul 17, 2024 11:14 AM Laboratory - Chemistry Order IRON & TIBC PANEL BLOOD (SST-SERUM) [facility] Jul 17, 2024 11:14 AM Laboratory - Chemistry Order MAGNESIUM BLOOD (SST-SERUM) [facility] Jul 17, 2024 11:14 AM Laboratory - Chemistry Order BASIC METABOLIC PANEL (fasting) BLOOD (SST-SERUM) [facility] Jul 17, 2024 11:14 AM Laboratory - Chemistry Order VITAMIN D (25-OH) BLOOD (SST-SERUM) [facility] Jul 17, 2024 11:14 AM Laboratory - Chemistry Order LIVER FUNCTION BLOOD (SST-SERUM) [facility] Jul 17, 2024 11:14 AM Laboratory - Chemistry Order LIPID PANEL FASTING BLOOD (SST-SERUM) [facility] Jul 17, 2024 11:14 AM Laboratory - Chemistry Order HEMOGLOBIN A1C PANEL BLOOD (LAV-BLOOD) [facility] Jul 17, 2024 11:14 AM Laboratory - Chemistry Order TSH BLOOD (SST-SERUM) [facility] Jul 17, 2024 11:14 AM Laboratory - Chemistry Order PSA BLOOD (SST-SERUM) [facility] Jul 17, 2024 11:14 AM Laboratory - Chemistry Order FERRITIN BLOOD (SST-SERUM) [facility] Jul 17, 2024 11:14 AM Laboratory - Chemistry Order CBC AND DIFF (AUTO) BLOOD (LAV-BLOOD) [facility] August 06, 2024 11:45 AM Imaging - General Radiology Order CHEST (3 VIEWS) [facility] Social History: Smoking Status (Most current) and Tobacco Use (All prior to encounter date) This section includes the most current, and the historical, smoking and tobacco- related health factors from the [place] facility where the Encounter took place. Current Smoking Status This section includes the most current smoking, or tobacco-related health factor, from the [place] facility where the Encounter took place. Date/Time Current Smoking Status Comment Ja ity Jan 29, 2024 10:34 AM VA-TOBACCO NEVER USED [facility] Tobacco Use History This section includes a history of the smoking, or tobacco-related health factors, that were collected on or before the date of the Encounter. The data comes from the [place] facility where the Encounter took place. Date/Time Smoking Status/Tobacco Use Comment F acility Dec 19, 2019 12:00 PM [facility] Dec 19, 2019 12:00 PM VA-TOBACCO QUIT 1 TO < 5 YRS [facility] Advance Directives: All historical and current Section Date Range: From patient's date of to the date document was created. This section includes ALL of a patient's completed or amended [place] Advance and Rescinded Directives. The entries below indicate that a directive exists for the patient, but an actual copy is not included with this document. The data comes from all [place] facilities. Date Advance Directives Provider Source Mar 29, 2021 ADVANCE DIRECTIVE [place] STORY COUNTS INCLUDE 234 BEDS AT THE [facility] Encounter Notes: All associated encounter notes This section contains the clinical notes associated to the Encounter. Date/Time Encounter Note(s) Provider Source Jul 12, 2024 11:22 AM VIST NOTE: LOCAL TITLE: VIS SUPPORT GROUP STANDARD TITLE: VIST NOTE DATE OF NOTE: JUL 12, 2024@11:22 ENTRY DATE: JUL 12, 2024@11:22:13 AUTHOR: KEKE LENNON COSIGNER: URGENCY: STATUS: COMPLETED Support Group Note Appointment Information: (x) VVC Support Group VVC Clinician Resources Only: E911 (Emergency Call Relay Center): [phone] Local emergency response numbers can be found at http://www.[employer] National Veterans Crisis Line - (3- 851-554-809-613-KYKB) press #1. JIM Suicide Coordinator [phone], Ext. [phone]; Back-up Ext. [phone] Urgent Care, [place]adege FERNANDEZ [phone], Ext. [phone] Emergency Plan: [place] confirmed they were at their home location and address/telephone numbers in chart were correct. Any [place] not at home confirmed location and address. [place] reported that location is private and safe: Yes Informed Consent: informed of the risks and benefits of Telehealth video care. [place] has the right to refuse video services. If refuses video visit, a face- to-face visit will be scheduled. [place] verbalized consent for this video visit: Yes [place] provided consent for any other persons present for visit: Yes Yes If yes, who and relationship to patient: VIS team staff and other Veterans/spouses Secure visit: Visit was locked for security and privacy: Yes Duration of appointment: 1 hr Start Time: 10:00 AM End Time: 11:00 AM Verified two identifications: (x) Full name () Full Social Security Number () Date of (x) Address () VA ID Card (x) Known to clinic () Other, specify: [place] agreed to participate in VIS VVC Support Group with fellow Veterans Ocular Diagnosis: (X) Legal blindness, 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 VIS VVC Support Group Instruction Provided: 9 Participants 1. VIS VVC Support Group The [place] participated along with other Veterans and VIS Staff in the VIS Support Group. The [place] and all other attendees participated via [facility]. Today's group discussed the following: I. General Updates (facility updates, upcoming events, community, VA, & facility program offerings and updates) II. Topic(s): Fall risk and prevention Arts in July: Creative Arts Therapy and Oral History Project Preparing for a medical emergency Assistive Technology Ordered: None Next Lesson Objective / Recommendations: 1. Next Group: a. Traditional VVC VIS Support Group will meet via VVC 5.9@10 [place] provided the following conditions related to participation, confidentiality, privacy, risks and consequences, dignity, and behavior during VA Video Connect/Clinical Video Telehealth (CVT) or other virtual group visits. [place]'s verbal consent and acknowledgement of this participation agreement is being documented in CPRS. 1. Privacy and Confidentiality During the visit, I will be in a quiet, private location where the confidential information of group participants cannot be seen or heard by others. I agree to not share the visit link with anyone. The laws protecting the confidentiality of my medical information also apply to telehealth, including group treatment conducted over video telehealth. The [place] has instituted procedures and policies to protect my privacy and confidentiality. The group senior climate advisor will lock the virtual medical room to prevent unauthorized persons from entering the visit. Everything said and done in group is confidential. I will protect the confidentiality of all group members by not sharing their names or what is said and done in the group. If I violate this confidentiality, I will be removed from the group. The group senior climate advisor may disclose confidential information without my consent where mandated or permitted by law (e.g., to protect me or others from harm). If a group member has a medical or mental health emergency, the group senior climate advisor may disconnect others from the visit to ensure privacy and to address the emergency. 2. Participation Participation in this group is voluntary, and I have the right to withdraw from the group at any time. Withdrawing from group would not affect my right to future care or risk the loss or withdrawal of any VA benefits to which I am otherwise entitled. I will participate in the group according to the expectations outlined by the group senior climate advisor. For video telehealth therapy groups, cameras will remain on during the entire group unless the group senior climate advisor states otherwise. If I am asked questions or asked to participate in an activity that makes me feel uncomfortable, I can decline, and I will not pressure other group members to participate. If I or the group senior climate advisor have concerns about my meeting group expectations or participating in any aspect of the group, a discussion will occur to determine next steps, including other treatment options. 3. Risks and Consequences The VA does not record telehealth visits, including group telehealth visits, without prior approval. I will not audio- or video-record or photograph any portion of the group visit. While this visit will not be audio- or video- recorded or photographed by the VA, there is a risk that another group member could audio- or video-record or photograph the visit and share it without knowledge or approval from VA or other group members. If it is known that any group member has audio- or video-recorded or photographed any portion of the visit, then he/she will be removed from group for violating confidentiality; relevant information will be shared with group members. He/she will then be referred for prosecution to the full extent of federal and local laws including applicable laws in the locations of the group senior climate advisor and all group members. 4. Behavior I will do my part to make the group a safe place by being respectful, supportive, and providing helpful feedback. I will avoid language that stereotypes or is insulting. I will be considerate when others are talking, give others an equal chance to speak, and will not engage inside conversations. Violence, threats, and intimidation will not be tolerated. Gossip and grudges can be very destructive. I agree that if I have something to say to another group member, I will say it to the member directly and respectfully rather than talk about him or her with others. I agree that I will not engage in a group video session from a moving vehicle and understand that doing so may result in the group senior climate advisor disconnecting me from the session. If the group senior climate advisor believes that I am impaired by alcohol or substances, using substances (including tobacco, etc.), or engaging in behavior that disrupts the group, I may be asked to leave and/or be disconnected from the group. The group senior climate advisor will have a follow-up discussion with me to determine any necessary changes to my treatment plan. I have read the agreement for group visits and agree to follow it. The group senior climate advisor will note in my medical record that I have received, read, and agreed to these expectations. *In developing this consent form, it was necessary to use several technical words; please ask for an explanation of any that you do not understand. /kayla/ BRYAN AGUILAR/[employer] ACTIVITIES OFFICER Signed: 07/12/2024 11:26 KEKE LENNON [place] [facility]
--- OUTSIDE RECORDS SUMMARY | 2024-07-17 12:26 | XMS_ITS | Continuity of Care Document ---
Author Name [facility] Organization [facility] Care Team Providers Care Vehicle Sales Professional Name Role Phone [facility] Unavailable Unavailable Problems Combined list of problems from Department of Defense and Veterans Affairs facilities. It does not include entries that were removed or entered in error. Problem Status Onset Date Problem Type Date of Resolution Comments Source Age-related nuclear cataracts of both eyes Active Condition Apr 17, 2024 Entered By: DARLIN BALDWIN Comment: Per [facility] note Dr Rubens Robbins [place] Chronic kidney disease stage 3 due to type 2 diabetes mellitus Active Condition Apr 17 Entered By: DARLIN BALDWIN Comment: 04/15/24 GFR 43 [facility] Depressive disorder Active Condition [place] Diabetes mellitus type 2 Active Condition Apr 17, 2024 Entered By: DARLIN BALDWIN Comment: 04/15/24 A1c 8.6 [facility] Diabetic peripheral neuropathy Active Condition Apr 17, 2024 Entered By: DARLIN BALDWIN Comment: mild, intermittent [facility] Essential hypertension Active Condition [place] Essential tremor Active Condition [facility] Exposure to potentially hazardous substance ([facility] [id number]) Active Condition Jul 11 Entered By: JOYCE [...] Gastroesophageal reflux disease with esophagitis Active Condition [facility] History of surgery Active Condition J an 2024 Entered By: DARLIN BALDWIN Comment: left thumb ligament tear repair 1999 [place] - Iron deficiency anemia Active Condition [...] 2024 Entered By: DARLIN BALDWIN Comment: Agent Bryan [place] Myopic macular degeneration Active Condition [place] Nonproliferative diabetic retinopathy Active Condition [place] Osteoarthritis of right knee joint [facility] ne[facility] done Active Condition Apr 17, 2024 Entered By: DARLIN BALDWIN Comment: colo about 2008; normal; Apr 05, 2021 Entered By: LUDA OLEARY Comment: 01-23-2021 [facility] [place] tubular adenoma no dysplagia, no return [place] Food insecurity Inactive Condition 05/21/2024 [facility] Onychomycosis of toenails Inactive Condition 04/17/2024 [facility] Diagnosis: ICD-10-CM E11.9 Type 2 diabetes mellitus without complications Active Diagnosis [place] Diagnosis: ICD-10-CM H54.8 Legal blindness, as defined in [place] Active Diagnosis [facility] Diagnosis: ICD-10-CM E11.22 Type 2 diabetes mellitus w diabetic chronic kidney disease Active Diagnosis [facility] Diagnosis: ICD-10-CM L60.3 Nail dystrophy Active Diagnosis [facility] Diagnosis: ICD-10-CM D50.9 Iron deficiency anemia, unspecified Active Diagnosis [place] Diagnosis: ICD-10-CM Z46.0 Encounter for fit/adjst of spectacles and contact lenses Active Diagnosis [facility] Diagnosis: ICD-10-CM G25.0 Essential tremor Active Diagnosis [facility] Diagnosis: ICD-10-CM E11.3299 Type 2 diab with mild nonp rtnop without macular edema, unsp Active Diagnosis [place] Diagnosis: ICD-10-CM N18.9 Chronic kidney disease, unspecified Active Diagnosis [place] Diagnosis: ICD-10-CM Z46.1 Encounter for fitting and adjustment of hearing aid Active Diagnosis [facility] Diagnosis: ICD-10-CM H90.3 Sensorineural hearing loss, bilateral Active Diagnosis [facility] Diagnosis: ICD-10-CM I10 Essential (primary) hypertension Active Diagnosis [place] Diagnosis: ICD-10-CM E11.40 Type 2 diabetes mellitus with diabetic neuropathy, unsp Active Diagnosis [facility] Diagnosis: ICD-10-CM M25.561 Pain in right knee Active Diagnosis [facility] Diagnosis: ICD-10-CM Z23 Encounter for immunization Active Diagnosis [facility] Diagnosis: ICD-10-CM E11.42 Type 2 diabetes mellitus with diabetic polyneuropathy Active Diagnosis [facility] Medications Combined list of outpatient medications [...] 2 DIABETES MELLITUS ORAL DISCONT INUED 05/06/2024 [id number] 4 GASPAR,AL ICE 2023 90 [facility] AMLODIPINE BESYLATE 5MG TAB TAKE ONE TABLET BY MOUTH ONCE DAILY FOR BLOOD PRESSURE /HEART, DO NOT TAKE WITH GRAPEFRU IT JUICE ORAL ACTIVE 01/29/2025 [id number] 5 MARIELLE AGUILA F [address] [facility] IELD AMLODIPINE BESYLATE 5MG TAB TAKE ONE TABLET BY MOUTH ONCE DAILY FOR BLOOD PRESSURE /HEART, DO NOT TAKE WITH GRAPEFRU IT JUICE ORAL DISCONT INUED 05/06/2024 [id number] 4 GASPAR,AL ICE 2023 90 [facility] ATORVASTATI N CA 80MG TAB TAKE ONE TABLET BY MOUTH DAY FOR CHOLESTE ROL ORAL ACTIVE 09/01/2024 [id number] 5 GASPAR,AL ICE 2023 90 [facility] ATORVASTATI N CA 80MG TAB TAKE ONE TABLET BY MOUTH DAY FOR CHOLESTE ROL ORAL DISCONT INUED 05/19/2024 [id number] 4 GASPAR,AL ICE 2023 90 [facility] AZITHROMYCI N 250MG TAB TAKE TWO TABLETS BY MOUTH EVERY 24 HOURS ORAL ACTIVE 07/21/2024 [id number] 5 CHELO VERONICA HCBOYD 2024 6 [place] AZITHROMYCI N 500MG TAB TAKE ONE TABLET BY MOUTH EVERY 24 HOURS ORAL DISCONT INUED (EDIT) 07/20/2024 [id number] 5 CHELO VERONICA HCBOYD 2024 3 [place] CEFUROXIME AXETIL 500MG TAB TAKE ONE TABLET BY MOUTH EVERY 12 HOURS ORAL ACTIVE 07/20/2024 [id number] 5 CHELO VERONICA HCHAIN 2024 14 [place] DULOXETINE HCL 20MG CAP,EC TAKE ONE CAPSULE BY MOUTH ONCE DAILY FOR NERVE PAIN ORAL DISCONT INUED BY PROVIDE R 09/01/2024 [id number] 4 GASPAR,AL ICE 2023 90 [facility] [place] [facility] DULOXETINE HCL 20MG CAP,EC TAKE ONE CAPSULE BY MOUTH ONCE DAILY FOR NERVE PAIN ORAL DISCONT INUED 05/23/2024 [id number] 4 GASPAR,AL ICE 2023 90 [facility] [place] [facility] EMPAGLIFLOZ IN 25MG TAB TAKE ONE TABLET BY MOUTH ONCE DAILY FOR TYPE 2 DIABETES MELLITUS ORAL ACTIVE 09/01/2024 [id number] 4 GASPAR,AL ICE 2023 90 [facility] EZETIMIBE 10MG TAB TAKE ONE TABLET BY MOUTH ONCE DAILY TO LOWER CHOLESTE ROL ORAL ACTIVE 04/18/2025 [id number] 5 Gage BALDWIN 2024 90 [place] EZETIMIBE 10MG TAB TAKE ONE TABLET BY MOUTH ONCE DAILY TO LOWER CHOLESTE ROL ORAL DISCONT INUED 09/01/2024 [id number] 4 GASPAR,AL ICE 2023 90 [facility] EZETIMIBE 10MG TAB TAKE ONE TABLET BY MOUTH ONCE DAILY TO LOWER CHOLESTE ROL ORAL DISCONT INUED 05/19/2024 [id number] 4 GASPAR,AL ICE 2023 90 [facility] FERROUS SO4 325MG TAB TAKE ONE TABLET BY MOUTH ONCE DAILY TO SUPPLEME NT IRON ORAL ACTIVE 02/02/2025 [id number] 5 Gage BALDWIN 2023 100 [place] FERROUS SO4 325MG TAB TAKE ONE TABLET BY MOUTH ONCE DAILY TO SUPPLEME NT IRON ORAL DISCONT INUED 12/08/2023 [id number] GONSALO ESPINOZA 2022 100 [facility] FLUTICASONE PROPIONATE 50MCG/SPRAY SOLN,NASAL, 16GM INSTILL 1 SPRAY TOPICALL Y EVERY 10 DAYS TO PREVENT IRRITATI ON FROM SENSOR TOPICA L ACTIVE 09/01/2024 [id number] 4 GASPAR,AL ICE 2023 1 [facility] GABAPENTIN 300MG CAP TAKE ONE CAPSULE BY MOUTH THREE TIMES A DAY FOR NERVE PAIN CHANGE FROM TABLETS ORAL ACTIVE 09/01/2024 [id number] 5 GASPAR,AL ICE 2023 270 [facility] GABAPENTIN 300MG CAP TAKE ONE CAPSULE BY MOUTH THREE TIMES A DAY FOR NERVE PAIN CHANGE FROM TABLETS ORAL DISCONT INUED 05/23/2024 [id number] 4 GASPAR,AL ICE 2023 270 [facility] GLUCOSE 4GM TAB,CHEW CHEW FOUR TABLETS BY MOUTH ONE TIME NEEDED FOR LOW BLOOD SUGAR ORAL ACTIVE 09/01/2024 [id number] 4 GASPAR,AL ICE 2023 30 [facility] [place] [facility] GLUCOSE 4GM TAB,CHEW CHEW FOUR TABLETS BY MOUTH ONE TIME NEEDED FOR LOW BLOOD SUGAR ORAL DISCONT INUED 05/19/2024 [id number] 4 GASPAR,AL ICE 2023 30 [facility] INSULIN,ASP ART,HUMAN (EQV-NOVOLO G) 100 UNIT/ML,FLE XPEN,3ML INJECT 4 UNITS SUBCUTAN EOUSLY EVERY MORNING AND INJECT 3 UNITS EVERY EVENING BEFORE SUPPER FOR DIABETES SUBCUT ANEOUS DISCONT INUED BY PROVIDE R 09/01/2024 [id number] 4 GASPAR,AL ICE 2023 5 [facility] INSULIN,ASP ART,HUMAN (EQV-NOVOLO G) 100 UNIT/ML,FLE XPEN,3ML INJECT 3 UNITS SUBCUTAN EOUSLY EVERY MORNING AND INJECT 2 UNITS EVERY EVENING BEFORE SUPPER SUBCUT ANEOUS DISCONT INUED (EDIT) 05/19/2024 [id number] 4 GASPAR,AL ICE 2023 5 [facility] [place] INSULIN,ASP ART,HUMAN (EQV-NOVOLO G) 100 UNIT/ML,FLE XPEN,3ML INJECT 3 UNITS SUBCUTAN EOUSLY EVERY MORNING AND INJECT 2 UNITS EVERY EVENING BEFORE SUPPER SUBCUT ANEOUS DISCONT INUED 12/31/2023 [id number] 4 GASPAR,AL ICE 2022 5 [facility] [place] INSULIN,GLA RGINE,HUMAN 100 UNIT/ML INJ,SOLOSTA R,3ML INJECT 8 UNITS SUBCUTAN EOUSLY ONCE DAILY FOR DIABETES SUBCUT ANEOUS ACTIVE 07/10/2025 [id number] 5 SCHUYLER HARRIS 2024 5 [place] INSULIN,GLA RGINE-YFGN 100UNIT/ML INJ PEN,3ML INJECT 6 UNITS SUBCUTAN EOUSLY ONCE DAILY FOR DIABETES SUBCUT ANEOUS DISCONT INUED BY PROVIDE R 12/05/2024 [id number] SCHUYLER HARRIS 2023 5 [place] INSULIN,GLA RGINE-YFGN 100UNIT/ML INJ PEN,3ML INJECT 3 UNITS SUBCUTAN EOUSLY ONCE DAILY FOR DIABETES SUBCUT ANEOUS DISCONT INUED (EDIT) 09/01/2024 [id number] 4 GASPAR,AL ICE 2023 5 [facility] INSULIN,GLA RGINE-YFGN 100UNIT/ML INJ PEN,3ML INJECT 3 UNITS SUBCUTAN EOUSLY ONCE DAILY FOR DIABETES SUBCUT ANEOUS DISCONT INUED 05/19/2024 [id number] 4 GASPAR,AL ICE 2023 5 [facility] INSULIN,GLA RGINE-YFGN 100UNIT/ML INJ PEN,3ML INJECT 3 UNITS SUBCUTAN EOUSLY ONCE DAILY FOR DIABETES SUBCUT ANEOUS DISCONT INUED 09/23/2023 [id number] 4 GASPAR,AL ICE 2022 5 [facility] LISINOPRIL 10MG TAB TAKE ONE TABLET BY MOUTH ONCE DAILY TO CONTROL BLOOD PRESSURE ORAL ACTIVE 06/27/2025 [id number] TRESSA BOND 2024 90 [place] LISINOPRIL 20MG TAB TAKE ONE TABLET BY MOUTH ONCE DAILY TO CONTROL BLOOD PRESSURE ORAL DISCONT INUED (EDIT) 09/01/2024 [id number] 5 GASPAR,AL ICE 2023 90 [facility] LISINOPRIL 20MG TAB TAKE ONE TABLET BY MOUTH ONCE DAILY TO CONTROL BLOOD PRESSURE ORAL DISCONT INUED 05/19/2024 [id number] 4 GASPAR,AL ICE 2023 90 [facility] LISINOPRIL 20MG TAB TAKE ONE TABLET BY MOUTH ONCE DAILY FOR HIGH BLOOD PRESSURE TO CONTROL BLOOD PRESSURE ORAL DISCONT INUED 12/31/2023 [id number] 4 GASPAR,AL ICE 2022 90 [facility] MAGNESIUM OXIDE 250MG TAB TAKE ONE TABLET BY MOUTH ONCE DAILY ORAL DISCONT INUED (EDIT) 10/02/2024 [id number] 4 AYLAMARIELLE SMYTHMADY F 2023 90 [place] MAGNESIUM OXIDE 250MG TAB TAKE ONE TABLET BY MOUTH ONCE DAILY ORAL DISCONT INUED 05/19/2024 [id number] 4 GASPAR,AL ICE [facility] MAGNESIUM OXIDE 400MG TAB TAKE ONE TABLET BY MOUTH TWICE DAILY ORAL ACTIVE 06/27/2025 [id number] TRESSA BOND 2024 180 [place] MAGNESIUM OXIDE 400MG TAB TAKE ONE TABLET BY MOUTH TWICE DAILY ORAL DISCONT INUED 07/20/2024 [id number] CHELO VERONICA HCHAIN 2024 14 [place] METFORMIN HCL 500MG TAB TAKE ONE TABLET BY MOUTH TWICE DAILY ORAL DISCONT INUED BY PROVIDE R 05/19/2024 [id number] 4 GASPAR,AL ICE 2023 [facility] OMEPRAZOLE 20MG CAP,EC TAKE ONE CAPSULE BY MOUTH EVERY MORNING 30 MINUTES BEFORE BREAKFAS T ORAL ACTIVE 04/18/2025 [id number] 5 Gage BALDWIN 2024 90 [place] OMEPRAZOLE 20MG CAP,EC TAKE ONE CAPSULE BY MOUTH EVERY MORNING 30 MINUTES BEFORE BREAKFAS T ORAL DISCONT INUED 02/14/2025 [id number] 4 SCHUYLER HARRIS 2023 90 [place] OMEPRAZOLE 20MG CAP,EC TAKE ONE CAPSULE BY MOUTH EVERY MORNING 30 MINUTES BEFORE BREAKFAS T ORAL DISCONT INUED 05/17/2024 [id number] 4 MARIELLE AGUILA RMMADY F 2023 90 [place] PRIMIDONE 50MG TAB TAKE ONE TABLET BY MOUTH AT BEDTIME TREMOR ORAL ACTIVE 04/06/2025 [id number] 5 Gage BALDWIN 2024 90 [place] PRIMIDONE 50MG TAB TAKE ONE TABLET BY MOUTH AT BEDTIME TREMOR ORAL DISCONT INUED 03/10/2024 [id number] SUKUMAR CAR Y 2022 90 [facility] SITAGLIPTIN (EQV-ZITUVI O) 100MG TAB TAKE ONE TABLET BY MOUTH ONCE DAILY DIABETES ORAL ACTIVE 03/20/2025 [id number] SHANA GASPAR ICE 2023 90 [facility] TAMSULOSIN HCL 0.4MG CAP TAKE ONE CAPSULE BY MOUTH AT BEDTIME ORAL ACTIVE 08/19/2024 [id number] 5 CHELO VERONICA HCHAIN [address] [facility] IELD Immunizations Combined list of available immunizations from the Department of Defense and [facility] facilities. Immunization Series Date Given Administered By Site Reaction Lot Number CVX Code Drug Emanations Analysis Technician Status Comments Source INFLUENZA, HIGH-DOSE, TRIVALENT, PF 2023 SARA DOMINGUEZ RIGHT DELTO ID [id number] 135 complet ed [facility] INFLUENZA, HIGH-DOSE, QUADRIVALENT 2022 LALA STRONG RIGHT DELTO ID [id number] 197 complet ed [facility] INFLUENZA, INJECTABLE, QUADRIVALENT, PRESERVATIVE FREE [address] [facility] IELD ZOSTER RECOMBINANT [address] [facility] IELD COVID-19 (MODERNA), MRNA, LNP-S, PF, 100 MCG OR 50 MCG DOSE 3 2020 207 complet ed MOD; [id number]; 2 [facility] IELD INFLUENZA VACCINE, QUADRIVALENT, ADJUVANTED [address] [facility] IELD COVID-19 (MODERNA), MRNA, LNP-S, PF, 100 MCG OR 50 MCG DOSE 2 2020 207 complet ed [facility] INFLUENZA, INJECTABLE, QUADRIVALENT, PRESERVATIVE FREE 2019 150 complet ed [facility] ZOSTER RECOMBINANT 1 2019 187 complet ed [facility] INFLUENZA, INJECTABLE, QUADRIVALENT, PRESERVATIVE FREE 2018 150 complet ed Site: Right Deltoid [place] PNEUMOCOCCAL POLYSACCHARID E [id number] 2018 33 complet ed [place] INFLUENZA, SEASONAL, INJECTABLE 2017 141 complet ed Site: Left Deltoid [place] TDAP 2017 115 complet ed Site: Left Deltoid [place] INFLUENZA, SEASONAL, INJECTABLE 2016 141 complet ed [facility] FLU,3 YRS (HISTORICAL) 2016 [...] YRS (HISTORICAL) 2013 88 complet ed [facility] [place] Results Combined list of recent chemistry, hematology and other laboratory results from Department of Defense and Veterans Affairs, ranging from 15 months to all on record, depending upon the facility. Order Name Results Value Reference Range Date Interpretation Specimen Comments Source HEMOGLOB IN A1C PANEL HEMOGLOBIN A1C/HEMOGL OBIN.TOTAL [...] Apr 08, 2024 10:51 AM Reporting Lab: [facility] [employer] [address] [address] Performing Lab: [facility] [address] [facility] [address] [place] LIPID PANEL FASTING CHOLESTERO L [MASS/VOLU ME] IN SERUM OR PLASMA 105 mg/dL 04/15 Specimen Type: SERUM No comment entered. Ordering Provider: ROXANA BALDWIN Report Released Date/Time: Apr 08, 2024 10:51 AM Reporting Lab: [facility] [address] [address] Performing Lab: [facility] [address] [address] [place] LIPID PANEL FASTING TRIGLYCERI DE [MASS/VOLU ME] IN SERUM OR PLASMA 50 mg/dL 0 - 150 04/15 Specimen Type: SERUM No comment entered. Ordering Provider: ROXANA BALDWIN Report Released Date/Time: Apr 08, 2024 10:51 AM Reporting Lab: [facility] [address] [address] Performing Lab: [facility] [address] [address] [place] LIPID PANEL FASTING CHOLESTERO L IN LDL [MASS/VOLU ME] IN SERUM OR PLASMA BY CALCJACQUI N 49 mg/dL 0 - 129 04/15 Specimen Type: SERUM No comment entered. Ordering Provider: ROXANA BALDWIN Report Released Date/Time: Apr 08, 2024 10:51 AM Reporting Lab: [facility] [address] [address] Performing Lab: [facility] [address] [address] [place] LIPID PANEL FASTING CHOLESTERO L.TOTAL/CH OLESTEROL IN HDL [MASS RATIO] IN SERUM OR PLASMA 2.3 04/15 Specimen Type: SERUM No comment entered. Ordering Provider: ROXANA BALDWIN Report Released Date/Time: Apr 08, 2024 10:51 AM Reporting Lab: [facility] [address] [address] Performing Lab: [facility] [address] [place] LIPID PANEL FASTING CHOLESTERO L IN HDL [MASS/VOLU ME] IN SERUM OR PLASMA 46 mg/dL 40 - 60 04/15 Specimen Type: SERUM No comment entered. Ordering Provider: ROXANA BALDWIN Report Released Date/Time: Apr 08, 2024 10:51 AM Reporting Lab: [facility] [address] [address] Performing Lab: [facility]RL [facility]N [facility]ITALUSE[address] [address] [place] LIVER FUNCTION PROTEIN [MASS/VOLU ME] IN SERUM OR PLASMA 7.1 g/dL 6.0 - 8.3 04/15 Specimen Type: SERUM No comment entered. Ordering Provider: ROXANA BALDWIN Report Released Date/Time: Apr 08, 2024 10:51 AM Reporting Lab: [facility] [address] [address] Performing Lab: [facility] TR[facility] [address] [address] [place] LIVER FUNCTION ALBUMIN [MASS/VOLU ME] IN SERUM OR PLASMA 3.5 g/dL 3.5 - 5.0 04/15 Specimen Type: SERUM No comment entered. Ordering Provider: ROXANA BALDWIN Report Released Date/Time: Apr 08, 2024 10:51 AM Reporting Lab: [facility] [address] [address] Performing Lab: [facility]ITALRL TRN [facility] [address] [place] FUN[place] ALKALINE PHOSPHATAS E [ENZYMATIC ACTIVITY/V OLUME] IN SERUM OR PLASMA 75 U/L 40 - 150 04/15 Specimen Type: SERUM No comment entered. Ordering Provider: ROXANA BALDWIN Report Released Date/Time: Apr 08, 2024 10:51 AM Reporting Lab: [facility]ERN [address] [address] Performing Lab: [facility]OSPITALRREGIONAL MED[facility] C[facility] OF JACKSONVILLETRN [facility]ITALUSE[address] [address] [facility] LIVER FUNCTION ASPARTATE AMINOTRANS FERASE [ENZYMATIC ACTIVITY/V OLUME] IN SERUM OR PLASMA 23 U/L 5 - 34 04/15 Specimen Type: SERUM No comment entered. Ordering Provider: ROXANA BALDWIN Report Released Date/Time: Apr 08, 2024 10:51 AM Reporting Lab: [facility] [place] [facility] [address] [facility] [address] Performing Lab: [facility] [place] [facility] [address] [facility] [address] [facility] LIVER FUNCTION ALANINE AMINOTRANS FERASE [ENZYMATIC ACTIVITY/V OLUME] IN SERUM OR PLASMA 20 U/L 04/15 Specimen Type: SERUM No comment entered. Ordering Provider: ROXANA BALDWIN Report Released Date/Time: Apr 08, 2024 10:51 AM Reporting Lab: [facility]ITALRL WSTRN [address] [address] Performing Lab: [facility]ITALUSE[address] [address] [facility] LIVER FUNCTION BILIRUBIN. TOTAL [MASS/VOLU ME] IN SERUM OR PLASMA 0.3 mg/dL 0.2 - 1.2 04/15 Specimen Type: SERUM No comment entered. Ordering Provider: ROXANA BALDWIN Report Released Date/Time: Apr 08, 2024 10:51 AM Reporting Lab: [facility]ITALRL WSTRN [address] [address] Performing Lab: [facility]PITALUSETS [address] [address] [facility] TSH THYROTROPI N [UNITS/VOL UME] IN SERUM OR PLASMA 1.66 u[IU]/mL 0.35 - 5.00 04/15 Specimen Type: SERUM No comment entered. Ordering Provider: ROXANA BALDWIN Report Released Date/Time: Apr 08, 2024 10:51 AM Reporting Lab: [facility]ITALUSETS [address] [address] Performing Lab: [facility]ITALUSETS [address] [address] [place] [employer] BASIC METABOLI C PANEL (fasting ) UREA NITROGEN [MASS/VOLU ME] IN SERUM OR PLASMA 40 mg/dL 7 - 25 04/15 H Specimen Type: SERUM No comment entered. Ordering Provider: ROXANA BALDWIN Report Released Date/Time: Apr 08, 2024 10:51 AM Reporting Lab: [facility] [address] [address] Performing Lab: [facility] [address] [address] [place] [employer] BASIC METABOLI C PANEL (fasting ) GLUCOSE [MASS/VOLU ME] IN SERUM OR PLASMA 143 mg/dL 65 - 100 04/15 H Specimen Type: SERUM No comment entered. Ordering Provider: ROXANA BALDWIN Report Released Date/Time: Apr 08, 2024 10:51 AM Reporting Lab: [address] [address] Performing Lab: [facility] [address] [address] [place] BASIC METABOLI C PANEL (fasting ) SODIUM [MOLES/VOL UME] IN SERUM OR PLASMA 131 mmol/L 135 - 145 04/15 L Specimen Type: SERUM No comment entered. Ordering Provider: ROXANA BALDWIN Report Released Date/Time: Apr 08, 2024 10:51 AM Reporting Lab: [facility] [address] [address] Performing Lab: [facility] [address] [address] [place] [employer] BASIC METABOLI C PANEL (fasting ) POTASSIUM [MOLES/VOL UME] IN SERUM OR PLASMA 5.5 mmol/L 3.5 - 5.0 04/15 H Specimen Type: SERUM No comment entered. Ordering Provider: ROXANA BALDWIN Report Released Date/Time: Apr 08, 2024 10:51 AM Reporting Lab: [facility] [address] [address] Performing Lab: [facility] [address] [address] [place] BASIC METABOLI C PANEL (fasting ) CHLORIDE [MOLES/VOL UME] IN SERUM OR PLASMA 101 mmol/L 100 - 110 04/15 Specimen Type: SERUM No comment entered. Ordering Provider: ROXANA BALDWIN Report Released Date/Time: Apr 08, 2024 10:51 AM Reporting Lab: [address] [address] Performing Lab: [address] [address] [place] BASIC METABOLI C PANEL (fasting ) CARBON DIOXIDE, TOTAL [MOLES/VOL UME] IN SERUM OR PLASMA 22 meq/L 20 - 30 04/15 Specimen Type: SERUM No comment entered. Ordering Provider: ROXANA BALDWIN Report Released Date/Time: Apr 08, 2024 10:51 AM Reporting Lab: [address] [address] Performing Lab: [address] [address] [place] BASIC METABOLI C PANEL (fasting ) CREATININE [MASS/VOLU ME] IN SERUM OR PLASMA 1.63 mg/dL 0.50 - 1.40 04/15 H Specimen Type: SERUM No comment entered. Ordering Provider: ROXANA BALDWIN Report Released Date/Time: Apr 08, 2024 10:51 AM Reporting Lab: [address] [address] Performing Lab: [address] [address] [place] BASIC METABOLI C PANEL (fasting ) GLOMERULAR FILTRATION RATE/1.73 SQ M.PREDICTE D [VOLUME RATE/AREA] IN SERUM, PLASMA OR BLOOD BY CREATININE -BASED FORMULA (CKD-EPI 2020) 43 mL/min 60 04/15 L Specimen Type: SERUM No comment entered. Ordering Provider: ROXANA BALDWIN Report Released Date/Time: Apr 08, 2024 10:51 AM Reporting Lab: [facility] [address] [facility] [address] Performing Lab: [facility] [address] [facility] [address] [place] MICROALB UMIN CREATINI NE RATIO PANEL MICROALBUM IN/CREATIN INE [MASS RATIO] IN URINE 55.2 mg/g 0 - 29.9 04/15 H Specimen Type: URINE No comment entered. Ordering Provider: ROXANA BALDWIN Report Released Date/Time: Apr 08, 2024 10:51 AM Reporting Lab: [facility] [address] [address] Performing Lab: [facility] [address] [address] [place] MICROALB UMIN CREATINI NE RATIO PANEL MICROALBUM IN [MASS/VOLU ME] IN URINE 2.6 mg/dL 04/15 Specimen Type: URINE No comment entered. Ordering Provider: ROXANA BALDWIN Report Released Date/Time: Apr 08, 2024 10:51 AM Reporting Lab: [facility] [address] [address] [address] Performing Lab: [facility]LETRN [address] [address] [place] MICROALB UMIN CREATINI NE RATIO PANEL CREATININE [MASS/VOLU ME] IN URINE 47.09 mg/dL 04/15 Specimen Type: URINE No comment entered. Ordering Provider: ROXANA BALDWIN Report Released Date/Time: Apr 08, 2024 10:51 AM Reporting Lab: [facility]LETRN [address] [address] Performing Lab: [facility] [address] [address] [place] CBC AND DIFF (AUTO) LEUKOCYTES [#/VOLUME] IN BLOOD BY AUTOMATED COUNT 9.42 10*3/uL 4.50 - 11.00 04/15 Specimen Type: BLOOD No comment entered. Ordering Provider: ROXANA BALDWIN Report Released Date/Time: Apr 08, 2024 10:51 AM Reporting Lab: [facility] [address] [facility] [address] Performing Lab: [facility] [address] [address] [place] CBC AND DIFF (AUTO) ERYTHROCYT ES [#/VOLUME] IN BLOOD BY AUTOMATED COUNT 3.73 10*6/uL 4.23 - 5.66 04/15 L Specimen Type: BLOOD No comment entered. Ordering Provider: ROXANA BALDWIN Report Released Date/Time: Apr 08, 2024 10:51 AM Reporting Lab: [address] [address] Performing Lab: [address] [address] [place] CBC AND DIFF (AUTO) HEMOGLOBIN [MASS/VOLU ME] IN BLOOD 11.9 g/dL 12.8 - 17 04/15 L Specimen Type: BLOOD No comment entered. Ordering Provider: ROXANA BALDWIN Report Released Date/Time: Apr 08, 2024 10:51 AM Reporting Lab: [address] [address] Performing Lab: [address] [address] [place] CBC AND DIFF (AUTO) HEMATOCRIT [VOLUME FRACTION] OF BLOOD BY AUTOMATED COUNT 35.0 39.2 - 50.4 04/15 L Specimen Type: BLOOD No comment entered. Ordering Provider: ROXANA BALDWIN Report Released Date/Time: Apr 08, 2024 10:51 AM Reporting Lab: [address] [address] Performing Lab: [address] [address] [place] CBC AND DIFF (AUTO) MCV [ENTITIC VOLUME] BY AUTOMATED COUNT 93.8 fL 82 - 99 04/15 Specimen Type: BLOOD No comment entered. Ordering Provider: ROXANA BALDWIN Report Released Date/Time: Apr 08, 2024 10:51 AM Reporting Lab: [facility] [address] [facility] [address] Performing Lab: [facility]ERN [address] [address] [place] CBC AND DIFF (AUTO) MCHC [MASS/VOLU ME] BY AUTOMATED COUNT 34.0 g/dL 30.8 - 35.1 04/15 Specimen Type: BLOOD No comment entered. Ordering Provider: ROXANA BALDWIN Report Released Date/Time: Apr 08, 2024 10:51 AM Reporting Lab: [facility]ENTERN [address] [address] Performing Lab: [facility] [address] [address] [place] CBC AND DIFF (AUTO) PLATELETS [#/VOLUME] IN BLOOD BY AUTOMATED COUNT 249 10*3/uL 140 - 360 04/15 Specimen Type: BLOOD No comment entered. Ordering Provider: ROXANA BALDWIN Report Released Date/Time: Apr 08, 2024 10:51 AM Reporting Lab: [facility]ENTERN [address] [address] Performing Lab: [facility] [address] [address] [place] CBC AND DIFF (AUTO) ERYTHROCYT E DISTRIBUTI ON WIDTH [RATIO] BY AUTOMATED COUNT 12.6 12.0 - 16.0 04/15 Specimen Type: BLOOD No comment entered. Ordering Provider: ROXANA BALDWIN Report Released Date/Time: Apr 08, 2024 10:51 AM Reporting Lab: [facility]ERN [address] [address] Performing Lab: [facility] [address] [address] [place] CBC AND DIFF (AUTO) MONOCYTES [#/VOLUME] IN BLOOD BY AUTOMATED COUNT 1.04 10*3/uL 0.30 - 1.10 04/15 Specimen Type: BLOOD No comment entered. Ordering Provider: ROXANA BALDWIN Report Released Date/Time: Apr 08, 2024 10:51 AM Reporting Lab: [place] [facility] [place] [address] [address] Performing Lab: [facility] [place] [address] [address] [place] CBC AND DIFF (AUTO) MCH [ENTITIC MASS] BY AUTOMATED COUNT 31.9 pg 26.2 - 32.6 04/15 Specimen Type: BLOOD No comment entered. Ordering Provider: ROXANA BALDWIN Report Released Date/Time: Apr 08, 2024 10:51 AM Reporting Lab: [place] [facility] [address] [address] Performing Lab: [facility] [address] [address] [place] CBC AND DIFF (AUTO) NEUTROPHIL S/100 LEUKOCYTES IN BLOOD BY AUTOMATED COUNT 67.9 43.7 - 75.8 04/15 Specimen Type: BLOOD No comment entered. Ordering Provider: ROXANA BALDWIN Report Released Date/Time: Apr 08, 2024 10:51 AM Reporting Lab: [facility]ITALUS[facility] [address] [address] Performing Lab: [place] [place] [address] [address] [place] CBC AND DIFF (AUTO) LYMPHOCYTE S/100 LEUKOCYTES IN BLOOD BY AUTOMATED COUNT 16.6 14.0 - 42.3 04/15 Specimen Type: BLOOD No comment entered. Ordering Provider: ROXANA BALDWIN Report Released Date/Time: Apr 08, 2024 10:51 AM Reporting Lab: [place] [facility] [place] [address] [address] Performing Lab: [place] [facility] [place] [address] [address] [place] CBC AND DIFF (AUTO) MONOCYTES/ 100 LEUKOCYTES IN BLOOD BY AUTOMATED COUNT 11.0 5.1 - 13.7 04/15 Specimen Type: BLOOD No comment entered. Ordering Provider: ROXANA BALDWIN Report Released Date/Time: Apr 08, 2024 10:51 AM Reporting Lab: [facility]CH[facility] [address] [address] Performing Lab: [facility]ITALCHUSETS [address] [address] [place] CBC AND DIFF (AUTO) EOSINOPHIL S/100 LEUKOCYTES IN BLOOD BY AUTOMATED COUNT 3.3 0.4 - 6.8 04/15 Specimen Type: BLOOD No comment entered. Ordering Provider: ROXANA BALDWIN Report Released Date/Time: Apr 08, 2024 10:51 AM Reporting Lab: [facility]ITALCHUSETS [address] [address] Performing Lab: [facility] [address] [address] [place] CBC AND DIFF (AUTO) BASOPHILS/ 100 LEUKOCYTES IN BLOOD BY AUTOMATED COUNT 0.8 0.1 - 2.0 04/15 Specimen Type: BLOOD No comment entered. Ordering Provider: ROXANA BALDWIN Report Released Date/Time: Apr 08, 2024 10:51 AM Reporting Lab: [facility] [address] [address] Performing Lab: [facility] [address] [address] [place] CBC AND DIFF (AUTO) NEUTROPHIL S [#/VOLUME] IN BLOOD BY AUTOMATED COUNT 6.39 10*3/uL 2.20 - 7.60 04/15 Specimen Type: BLOOD No comment entered. Ordering Provider: ROXANA BALDWIN Report Released Date/Time: Apr 08, 2024 10:51 AM Reporting Lab: [facility]ITALCHUSETS [address] [address] Performing Lab: [facility] [address] [address] [place] CBC AND DIFF (AUTO) LYMPHOCYTE S [#/VOLUME] IN BLOOD BY AUTOMATED COUNT 1.56 10*3/uL 1.00 - 3.20 04/15 Specimen Type: BLOOD No comment entered. Ordering Provider: ROXANA BALDWIN Report Released Date/Time: Apr 08, 2024 10:51 AM Reporting Lab: [facility]ITALRL WSTRN [facility]ITALUSETS [address] [address] Performing Lab: [facility]ITALUSE[address] [address] [place] CBC AND DIFF (AUTO) EOSINOPHIL S [#/VOLUME] IN BLOOD BY AUTOMATED COUNT 0.31 10*3/uL 0.03 - 0.44 04/15 Specimen Type: BLOOD No comment entered. Ordering Provider: ROXANA BALDWIN Report Released Date/Time: Apr 08, 2024 10:51 AM Reporting Lab: [facility]ITALR[facility]LETRN [address] [address] Performing Lab: [facility]ITALRBROOKWO[facility]ENTERN [address] [address] [place] CBC AND DIFF (AUTO) BASOPHILS [#/VOLUME] IN BLOOD BY AUTOMATED COUNT 0.08 10*3/uL 0.01 - 0.13 04/15 Specimen Type: BLOOD No comment entered. Ordering Provider: ROXANA BALDWIN Report Released Date/Time: Apr 08, 2024 10:51 AM Reporting Lab: [facility]OS[facility]ITALRL TRN [address] [address] Performing Lab: [facility]OSPITALRL TRN [facility] [address] [place] CBC AND DIFF (AUTO) IMMATURE GRANULOCYT ES/100 LEUKOCYTES IN BLOOD BY AUTOMATED COUNT 0.4 0.0 - 0.7 04/15 Specimen Type: BLOOD No comment entered. Ordering Provider: ROXANA BALDWIN Report Released Date/Time: Apr 08, 2024 10:51 AM Reporting Lab: [facility]ITALR[facility]SONVILLETRN [facility]USE[address] [address] Performing Lab: [facility]ITALR[facility]LETRN [facility] [address] [place] CBC AND DIFF (AUTO) IMMATURE GRANULOCYT ES [#/VOLUME] IN BLOOD 0.04 10*3/uL 0.00 - 0.06 04/15 Specimen Type: BLOOD No comment entered. Ordering Provider: ROXANA BALDWIN Report Released Date/Time: Apr 08, 2024 10:51 AM Reporting Lab: [facility]ITALR[facility]OOK[facility] CENTERN [address] [address] Performing Lab: [facility]ITALR[facility]WO[facility] CENTERN [address] [address] [place] CBC AND DIFF (AUTO) NRBC % 0.0 0.0 - 0.0 04/15 Specimen Type: BLOOD No comment entered. Ordering Provider: ROXANA BALDWIN Report Released Date/Time: Apr 08, 2024 10:51 AM Reporting Lab: [facility] [address] [address] Performing Lab: [address] [address] [place] CBC AND DIFF (AUTO) NRBC, ABS 0.00 10*3/uL 0.00 - 0.00 04/15 Specimen Type: BLOOD No comment entered. Ordering Provider: ROXANA BALDWIN Report Released Date/Time: Apr 08, 2024 10:51 AM Reporting Lab: [facility] [address] [address] Performing Lab: [facility] [address] [address] [place] CREATINI NE (eGFR 2020) CREATININE [MASS/VOLU ME] IN SERUM OR PLASMA 1.38 mg/dL 0.50 - 1.40 01/28 Specimen Type: SERUM No comment entered. Ordering Provider: MALISSA AGUILA Report Released Date/Time: Jan 29, 2024 10:42 AM Reporting Lab: [facility] [address] [address] Performing Lab: [facility] [address] [address] [place] CREATINI NE (eGFR 2020) GLOMERULAR FILTRATION RATE/1.73 SQ M.PREDICTE D [VOLUME RATE/AREA] IN SERUM, PLASMA OR BLOOD BY CREATININE -BASED FORMULA (CKD-EPI 2020) 53 mL/min 60 01/28 L Specimen Type: SERUM No comment entered. Ordering Provider: MALISSA AGUILA Report Released Date/Time: Jan 29, 2024 10:42 AM Reporting Lab: [facility]ITALRL WSTRN [facility]ITALUSETS [address] [address] Performing Lab: [facility]ITALRL WSTRN [facility]ITALUSETS [address] [address] [place] URINALYS IS CLEAN CATCH COLOR OF URINE Light-Ye llow 01/28 Specimen Type: URINE Comment: If Glucose = >500 and Ketones are positive, please alert the Physician. Ordering Provider: MALISSA AGUILA Report Released Date/Time: Jan 29, 2024 11:01 AM Reporting Lab: [facility]ITALR[facility]VILLETRN [facility] [address] Performing Lab: [facility]ITALR[facility]LETRN [facility] [address] [place] URINALYS IS CLEAN CATCH APPEARANCE OF URINE Clear 01/28 Specimen Type: URINE Comment: If Glucose = >500 and Ketones are positive, please alert the Physician. Ordering Provider: MALISSA AGUILA Report Released Date/Time: Jan 29, 2024 11:01 AM Reporting Lab: [facility]ITALRL TRN [facility]ITALUSETS [address] [address] Performing Lab: [facility]ITALRL TRN [facility]ITALUSETS [address] [address] [place] URINALYS IS CLEAN CATCH GLUCOSE [MASS/VOLU ME] IN URINE >1000mg/ dL 01/28 Specimen Type: URINE Comment: If Glucose = >500 and Ketones are positive, please alert the Physician. Ordering Provider: MALISSA AGUILA Report Released Date/Time: Jan 29, 2024 11:01 AM Reporting Lab: [facility]ITALRL WSTRN [facility]PITALCHUSETS [address] [address] Performing Lab: [facility]ITALRL WSTRN [facility]PITALCHUSETS [address] [address] [place] URINALYS IS CLEAN CATCH KETONES [MASS/VOLU ME] IN URINE BY TEST STRIP NEGATIVE mg/dL 01/28 Specimen Type: URINE Comment: If Glucose = >500 and Ketones are positive, please alert the Physician. Ordering Provider: MALISSA AGUILA Report Released Date/Time: Jan 29, 2024 11:01 AM Reporting Lab: [facility]ITALR[facility] J[facility]SONVILLETRN [facility]ITALUSETS [facility] [address] [facility] [address] Performing Lab: [facility]N [facility]ITALUSETS [address] [address] [place] URINALYS IS CLEAN CATCH ERYTHROCYT ES [PRESENCE] IN URINE SEDIMENT BY LIGHT MICROSCOPY NEGATIVE mg/dL 01/28 Specimen Type: URINE Comment: If Glucose = >500 and Ketones are positive, please alert the Physician. Ordering Provider: MALISSA AGUILA Report Released Date/Time: Jan 29, 2024 11:01 AM Reporting Lab: [facility]N [facility]ITALUSE[address] [address] Performing Lab: [facility]TRN [facility]ITALUSETS [address] [address] [place] URINALYS IS CLEAN CATCH PROTEIN [MASS/VOLU ME] IN URINE BY TEST STRIP NEGATIVE mg/dL 01/28 Specimen Type: URINE Comment: If Glucose = >500 and Ketones are positive, please alert the Physician. Ordering Provider: MALISSA AGUILA Report Released Date/Time: Jan 29, 2024 11:01 AM Reporting Lab: [facility]N [facility]ITALUSETS [address] [address] Performing Lab: [facility]ITALR[facility]TRN [facility]ITALUSETS [address] [address] [place] URINALYS IS CLEAN CATCH NITRITE [PRESENCE] IN URINE NEGATIVE mg/dL 01/28 Specimen Type: URINE Comment: If Glucose = >500 and Ketones are positive, please alert the Physician. Ordering Provider: MALISSA AGUILA Report Released Date/Time: Jan 29, 2024 11:01 AM Reporting Lab: [facility]ITALRBR[facility]WO[facility] CENTERN [facility]ITALUSETS [address] [address] Performing Lab: [facility]ITALRBROOKWOOD [facility] CENTERN [facility]ITALUSETS [address] [address] [place] URINALYS IS CLEAN CATCH BILIRUBIN. TOTAL [PRESENCE] IN URINE NEGATIVE mg/dL 01/28 Specimen Type: URINE Comment: If Glucose = >500 and Ketones are positive, please alert the Physician. Ordering Provider: MALISSA AGUILA Report Released Date/Time: Jan 29, 2024 11:01 AM Reporting Lab: [address] [address] Performing Lab: [address] [address] [place] URINALYS IS CLEAN CATCH SPECIFIC GRAVITY OF URINE BY REFRACTOME TRY 1.018 1.016 - 1.022 01/28 Specimen Type: URINE Comment: If Glucose = >500 and Ketones are positive, please alert the Physician. Ordering Provider: MALISSA AGUILA Report Released Date/Time: Jan 29, 2024 11:01 AM Reporting Lab: [address] [address] Performing Lab: [facility] [address] [place] URINALYS IS CLEAN CATCH PH OF URINE BY TEST STRIP 6.0 5.0 - 9.0 01/28 Specimen Type: URINE Comment: If Glucose = >500 and Ketones are positive, please alert the Physician. Ordering Provider: MALISSA AGUILA Report Released Date/Time: Jan 29, 2024 11:01 AM Reporting Lab: [facility] MASSUSE[address] [address] Performing Lab: [facility] [address] [place] URINALYS IS CLEAN CATCH UROBILINOG EN [MASS/VOLU ME] IN URINE BY TEST STRIP Normalmg /dL <2.0 - 2.0 01/28 Specimen Type: URINE Comment: If Glucose = >500 and Ketones are positive, please alert the Physician. Ordering Provider: MALISSA AGUILA Report Released Date/Time: Jan 29, 2024 11:01 AM Reporting Lab: [facility] [address] [address] Performing Lab: [facility] [address] [address] [place] URINALYS IS CLEAN CATCH LEUKOCYTE ESTERASE [PRESENCE] IN URINE BY TEST STRIP NEGATIVE 01/28 Specimen Type: URINE Comment: If Glucose = >500 and Ketones are positive, please alert the Physician. Ordering Provider: MALISSA AGUILA Report Released Date/Time: Jan 29, 2024 11:01 AM Reporting Lab: [address] [address] Performing Lab: [facility] [address] [address] [place] BASIC METABOLI C PANEL (fasting ) UREA NITROGEN [MASS/VOLU ME] IN SERUM OR PLASMA 27 mg/dL 7 - 25 01/28 H Specimen Type: SERUM Comment: NOTE CHANGE FROM PREVIOUS RESULTS Ordering Provider: MALISSA AGUILA Report Released Date/Time: Jan 25, 2024 01:10 PM Reporting Lab: [facility] [address] [address] Performing Lab: [facility] [address] [address] [place] BASIC METABOLI C PANEL (fasting ) GLUCOSE [MASS/VOLU ME] IN SERUM OR PLASMA 168 mg/dL 65 - 100 01/28 H Specimen Type: SERUM Comment: NOTE CHANGE FROM PREVIOUS RESULTS Ordering Provider: MALISSA AGUILA Report Released Date/Time: Jan 25, 2024 01:10 PM Reporting Lab: [facility] [address] [address] Performing Lab: [facility] [address] [address] [place] BASIC METABOLI C PANEL (fasting ) SODIUM [MOLES/VOL UME] IN SERUM OR PLASMA 133 mmol/L 135 - 145 01/28 L Specimen Type: SERUM Comment: NOTE CHANGE FROM PREVIOUS RESULTS Ordering Provider: MALISSA AGUILA Report Released Date/Time: Jan 25, 2024 01:10 PM Reporting Lab: [facility]ITALRL W[facility]N [facility]ITALUS[facility] [address] [address] Performing Lab: [facility] [address] [address] [place] BASIC METABOLI C PANEL (fasting ) POTASSIUM [MOLES/VOL UME] IN SERUM OR PLASMA 4.9 mmol/L 3.5 - 5.0 01/28 Specimen Type: SERUM Comment: NOTE CHANGE FROM PREVIOUS RESULTS Ordering Provider: MALISSA AGUILA Report Released Date/Time: Jan 25, 2024 01:10 PM Reporting Lab: [facility]ITALRL W[facility]N [facility]ITALUS[facility] [address] [address] Performing Lab: [facility] [address] [place] BASIC METABOLI C PANEL (fasting ) CHLORIDE [MOLES/VOL UME] IN SERUM OR PLASMA 99 mmol/L 100 - 110 01/28 L Specimen Type: SERUM Comment: NOTE CHANGE FROM PREVIOUS RESULTS Ordering Provider: MALISSA AGUILA Report Released Date/Time: Jan 25, 2024 01:10 PM Reporting Lab: [facility]ITALRL WSTRN [facility] [address] [address] Performing Lab: [facility]US[facility] [address] [address] [place] BASIC METABOLI C PANEL (fasting ) CARBON DIOXIDE, TOTAL [MOLES/VOL UME] IN SERUM OR PLASMA 22 meq/L 20 - 30 01/28 Specimen Type: SERUM Comment: NOTE CHANGE FROM PREVIOUS RESULTS Ordering Provider: MALISSA AGUILA Report Released Date/Time: Jan 25, 2024 01:10 PM Reporting Lab: [place] [address] [address] Performing Lab: [place] [facility] [place] [address] [address] [place] BASIC METABOLI C PANEL (fasting ) CREATININE [MASS/VOLU ME] IN SERUM OR PLASMA 1.36 mg/dL 0.50 - 1.40 01/28 Specimen Type: SERUM Comment: NOTE CHANGE FROM PREVIOUS RESULTS Ordering Provider: MALISSA AGUILA Report Released Date/Time: Jan 25, 2024 01:10 PM Reporting Lab: [facility]N [facility] [address] [facility] [address] Performing Lab: [address] [address] [place] [employer] BASIC METABOLI C PANEL (fasting ) GLOMERULAR FILTRATION RATE/1.73 SQ M.PREDICTE D [VOLUME RATE/AREA] IN SERUM, PLASMA OR BLOOD BY CREATININE -BASED FORMULA (CKD-EPI 2020) 54 mL/min 60 01/28 L Specimen Type: SERUM Comment: NOTE CHANGE FROM PREVIOUS RESULTS Ordering Provider: MALISSA AGUILA Report Released Date/Time: Jan 25, 2024 01:10 PM Reporting Lab: [address] [address] Performing Lab: [address] [address] [place] Vital Signs Combined list of inpatient and outpatient Vital Signs from Department of Defense and Veterans Affairs, ranging from 12 months to all on record, depending upon the facility. Vital Sign Value Date Comments Source SYSTOLIC BLOOD PRESSURE 150 06/26/2024 10:34:28 [place] DIASTOLIC BLOOD PRESSURE 80 06/26/2024 10:34:28 [place] PULSE OXIMETRY 96 06/26/2024 10:34:28 [facility] WEIGHT 120 06/26/2024 10:34:28 [place] BMI 20 kg/m2 06/26/2024 10:34:28 [facility] PULSE 93 06/26/2024 10:34:28 [facility] SYSTOLIC BLOOD PRESSURE 146 04/17/2024 10:09:34 [place] DIASTOLIC BLOOD PRESSURE 73 04/17/2024 10:09:34 [place] PULSE OXIMETRY 98 04/17/2024 10:09:34 [place] PULSE 94 04/17/2024 10:09:34 [facility] SYSTOLIC BLOOD PRESSURE 146 01/29/2024 10:33:16 [place] DIASTOLIC BLOOD PRESSURE 76 01/29/2024 10:33:16 [place] PULSE OXIMETRY 99 01/29/2024 10:33:16 [place] WEIGHT 121.2 01/29/2024 10:33:16 [place] BMI 20 kg/m2 01/29/2024 10:33:16 [place] TEMPERATURE 97.6 01/29/2024 10:33:16 [place] PULSE 88 01/29/2024 10:33:16 [facility] SYSTOLIC BLOOD PRESSURE 146 07/24/2023 10:43:37 [place] DIASTOLIC BLOOD PRESSURE 74 07/24/2023 10:43:37 [place] PULSE OXIMETRY 98 07/24/2023 10:43:37 [place] WEIGHT 128 07/24/2023 10:43:37 [place] BMI 21 kg/m2 07/24/2023 10:43:37 [place] PULSE 97 07/24/2023 10:43:37 [place] Encounters Combined list of: 1) Encounters from Department of Veterans Affairs facilities going backup to the last 18 months, not all [place] inpatient encounters are included; 2) Encounters from the Department of [facility] facilities going backup to 280 months. Location Location Details Encounter Type Encounter Number Reason For Visit Attending Provider ADM Date DC Date Status Disposition Source [facility] PHONE CALL 5-10 MIN [id number] 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, as defined in [place] MICHAEL LENNON 01[facility]P EST MOD 30-39 MIN [id number] Diagnos is: ICD-10- CM E11.42 Type 2 diabete s mellitu s with diabeti c polyneu ropathy STELEA,CAR MEN F 01/20 [facility] OFF/OP EST MAY X REQ PHY/QHP [id number] Diagnos is: ICD-10- CM Z23 Encount er for immuniz atBrad Galvan 10/24 /2023 [facility] IV[facility] GRP EA ADDL [id number] 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, as defined in [place] SANDY LENNON T 01/27 [facility] EST LOW 20-29 MIN [id number] Diagnos is: ICD-10- CM M25.561 Pain in right knee STELEA,CAR MEN F 02/16 [place] [facility] IVNTJ GRP EA ADDL [id number] 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, [place] defined [place] MICHAEL LENNON 02/17 [facility] Encounter [id number] 03/01 [facility] IV[facility] GRP EA ADDL [id number] 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, [place] defined [place] MICHAEL LENNON 03/10 [facility] En[facility] [id number] 03/15 [facility] OFFICE O/P EST HI 40-54 MIN [id number] 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, as defined in [place] LISET BAUMAN 03/16 [facility] [facility] SPECTACLES MONOFOCAL [id number] Diagnos is: ICD-10- CM Z46.0 Encount er for fit/adj st of spectac les and contact lenses LISET BAUMAN 03/16 [facility] Outpatient Encounter [id number] 04/11 [facility] HLTH [facility] IVNTJ GRP EA ADDL [id number] 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, as defined in [facility] MICHAEL LENNON M 04/14 [facility] PRO PHONE CALL 21-30 MIN [id number] 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, as defined in [facility] SANDY LENNON ISTOPHER T 04/18 [facility] [place] OFFICE O/P EST LOW 20 MIN [id number] [id number] Diagnos is: ICD-10- CM L60.3 Nail dystrop hy JEANETTE GALVAN ES F 04/20 [place] [facility] HLTH [facility] IVNTJ GRP EA ADDL [id number] 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, as defined in [facility] 04[facility] Outpatient Encounter [id number] 04/28 [facility] SENSORY INTEGRATIO N [id number] 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, as defined in [place] SANDY LENNON ISTOPHER T 05/01 [facility] Out[facility] Encounter [id number] 05/05 [facility] Encounter [id number] 05/05 [facility] Encounter [id number] 05/10 [facility] Encounter [id number] 05/11 [facility] HLTH [facility] IVNTJ GRP EA ADDL [id number] 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, [place] defined in [place] MICHAEL LENNON 05/12 [facility] Out[facility] Encounter [id number] 05/15 [facility] OFFICE O/P EST HI 40 MIN [id number] Diagnos is: ICD-10- CM E11.9 Type 2 diabete s mellitu s without complic ations CHER GASPAR 05/19 [facility] (631GE) QNHP OL DIG ASSMT&MGMT 5-10 [id number] [id number] Diagnos is: ICD-10- CM E11.9 Type 2 diabete s mellitu s without complic ations LEONARD MITCHELL 05/19 [facility] (6[facility] Out[facility] Encounter [id number] 05/21 [facility] Encounter [id number] Diagnos is: ICD-10- CM E11.40 Type 2 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, unsp CHER GASPAR CE 05/23 [facility] PRO PHONE CALL 21-30 MIN [id number] [id number] 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, as defined in [facility] SANDY LENNON ISTOPHER T 05/23 [facility] Out[facility] Encounter [id number] 06/01 [facility] SENSORY INTEGRATIO N [id number] [id number] 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, as defined in [facility] T 06/01 [facility] CASE MANAGEMENT [id number] 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, as defined in [facility] SANDY LENNON ISTOPHER T 06/05 [facility] HLTH [facility] IVNTJ GRP EA ADDL [id number] MICHAEL LENNON 06/08 [facility] Outpatient Encounter [id number] 03/08 /2024 [facility] HLTH V IVNTJ GRP EA ADDL [id number] 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, as defined in [facility] ISTOPHER T 06[facility]22 [facility] ADDL [id number] 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, as defined in [facility] MICHAEL LENNON 06/29 [facility] [place] OFFICE O/P EST LOW 20 MIN [id number] [id number] Diagnos is: ICD-10- CM L60.3 Nail dystrop hy ROSS,CHARL ES F 07/12 [place] [facility] HL[facility] IVNTJ GRP EA ADDL [id number] 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, as defined in [facility] MICHAEL LENNON M 07/13 [facility] Outpatient Encounter [id number] 07/17 [facility] [place] OFF[place] O/P EST MOD 30 MIN [id number] [id number] Diagnos is: ICD-10- CM I10 Essenti al (primar y) hyperte nsion STELEA,CAR MEN F 07/23 [place] [facility] HLTH V IVNTJ GRP EA ADDL [id number] 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, as defined in [facility] ISTOPHER T 07/27 [facility] HEARING AID EXAM BOTH EARS [id number] Diagnos is: ICD-10- CM H90.3 Sensori neural hearing loss, bilater al Arjun WITT CORY E 07/27 [facility] EXTENDED VISUAL FIELD XM [id number] [id number] 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, as defined in [facility] LISET BAUMAN 07/27 [facility] FUNDUS PHOTOGRAPH Y W/I&R [id number] [id number] 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, as defined in [facility] LISET BAUMAN 07/27 [facility] COMPRE OPH EXAM EST PT 1/ [id number] [id number] 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, as defined in [facility] LISET BAUMAN 07/27 [facility] HC PRO PHONE CALL 11-20 MIN [id number] 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, as defined in [place] SANDY LENNON ISTOPHER T 08/03 [facility] HEARING SERVICE [id number] [id number] Diagnos is: ICD-10- CM Z46.1 Encount er for fitting and adjustm ent of hearing aid FELIX VALERO 08/21 [facility] Outpatient Encounter [id number] Diagnos is: ICD-10- CM E11.9 Type 2 diabete s mellitu s without complic ations ERIC FRANCIS M 08/31 [facility] OFFICE O/P EST HI 40 MIN [id number] Diagnos is: ICD-10- CM E11.9 Type 2 diabete s mellitu s without complic ations GASPAR,ALI CE 08/31 [facility] Outpatient Encounter [id number] 08/31 [facility] CONT GLUC MNTR ANALYSIS I&R [id number] [id number] Diagnos is: ICD-10- CM E11.9 Type 2 diabete s mellitu s without complic ations GASPAR,ALI CE 08/31 [facility] (631GE) QNHP OL DIG ASSMT&MGMT 5-10 [id number] [id number] Diagnos is: ICD-10- CM E11.9 Type 2 diabete s mellitu s without complic ations STEPHENLEONARD N 09/03 [facility] [address] (631GE) [facility] HLTH B[facility] IVNTJ GRP EA ADDL [id number] 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, as defined in [facility] MICHAEL LENNON 09/14 [facility] HLTH [facility] IVNTJ GRP EA ADDL [id number] 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, as defined in [facility] SANDY LENNON ISTOP T 09/21 [facility] Outpatient Encounter [id number] 09/25 [facility] Outpatient Encounter [id number] [id number] 10/18 [facility] [place] OFF[place] O/P EST MOD 30 MIN [id number] [id number] Diagnos is: ICD-10- CM L60.3 Nail dystrop hy ROSS,CHARL ES F 10/18 [place] [facility] Out[facility] Encounter [id number]/22 [facility] Out[facility] Encounter [id number] 10/25 [facility] HL[facility] IVNTJ GRP EA ADDL [id number] 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, as defined in [facility] SANDY LENNON ISTOPHER T 10/26 [facility] HL[facility] IVNTJ GRP EA ADDL [id number] 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 [place]ELD [place] MTMS BY PHARM ADDL 15 MIN [id number] [id number] Diagnos is: ICD-10- CM E11.9 Type 2 diabete s mellitu s without complic ations KIMBERLY,TYRON IE 12/17 [place] [facility] HL[facility] IVNTJ GRP EA ADDL [id number] 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, as defined in [place] CHRISTIANO MACEDO 12/28 [facility] IVNTJ GRP EA ADDL [id number] [id number] 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, [place] defined [place] MICHAEL LENNON 01/11 [facility] [place] Outpatient Encounter [id number] [id number] 01/21 [place] [facility] HC PRO PHONE CALL 5-10 MIN [id number] [id number] 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, [place] defined [place] MICHAEL LENNON 01/21 [facility] [place] 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 [id number] [id number] Diagnos is: ICD-10- CM E11.9 Type 2 diabete s mellitu s without complic ations KIMBERLY,TYRON IE 01/23 [place] [facility] Out[facility] Encounter [id number] 1.01/24 [facility] Out[facility] Encounter [id number] 01/25 [facility] HL[facility] IVNTJ GRP EA ADDL [id number] [id number] 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 Diagnos is: ICD-10- CM Z46.0 Encount er for fit/adj st of spectac les and contact lenses CHER DODSON 02/19 [facility] [place] O/P EST LOW 20 MIN [id number] [id number] Diagnos is: ICD-10- CM L60.3 Nail dystrop hy JEANETTE GALVAN ES F 02/21 [place] [facility] GROUP THERAPEUTI C PROCEDURES 32814-5.63 1. 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, as defined in [facility]/22 [facility] FALL RISK ASSESSMENT DOCD [id number] [id number] 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, as defined in [facility] MICHAEL LENNON 02/27 [facility] GROUP THERAPEUTI C PROCEDURES [id number] [id number] 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, as defined in [facility] MICHAEL LENNON 03/04 [facility] [place] PSYTX W PT 30 MINUTES 45138-4.63 [id number] 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, as defined in [place] Sonia BAKER 03/06 [place] 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 [id number] [id number] Diagnos is: ICD-10- CM E11.329 9 Type 2 diab with mild nonp rtnop without macular edema, unsp KIMBERLY,TYRON IE 03/08 [place] Outpatient Encounter [id number] [id number] 03/08 [place] [facility] GROUP THERAPEUTI C PROCEDURES [id number] [id number] 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, [place] defined in [place] MICHAEL LENNON 03/15 [facility] [place] QNHP OL DIG ASSMT&MGMT 5-10 00210-1.63 [id number].[id number] 46 Diagnos is: ICD-10- CM E11.9 Type 2 diabete s mellitu s without complic ations MAHENDRA EPPSJOON Brad 03/19 [place] [facility] Out[facility] Encounter [id number] [id number] 03/20 [facility] HC PRO PHONE CALL 21-30 MIN 20128-9.63 1. 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, as defined in [facility] SANDY LENNON ISTOPHER T 03/20 [facility] HC PRO PHONE CALL 11-20 MIN [id number] [id number] 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, as defined in [facility] T 03/25 [facility] [place] PSYTX W PT 30 MINUTES 44645-3.63 [id number].[id number] 45 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, as defined in [facility] Sonia BAKER 04/05 [facility] IE [facility] GROUP THERAPEUTI C PROCEDURES [id number] [id number] 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, as defined in [facility] MICHAEL LENNON 04/12 [facility] [place] O/[place] HI 40 MIN 60172-7.63 [id number].[id number] Diagnos is: ICD-10- CM G25.0 Essenti al JAKY Arnold C 04/17 [facility] GROUP THERAPEUTI C PROCEDURES [id number] [id number] 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, as defined in [facility] T 04/26 [facility] [place] 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 [place]ELD [facility] GROUP THERAPEUTI C PROCEDURES [id number] [id number] 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, as defined in [facility] MICHAEL LENNON 05/17 [facility] PH1 ASSMT&MGMT NQHP 11-20 [id number] [id number] 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, as defined in [facility]STOPHER T 05/21 [facility] RPR&REFITG SPECT XCP APHAKIA 66094-9.63 [id number] Diagnos is: ICD-10- CM Z46.0 Encount er for fit/adj st of spectac les and contact lenses DONNABrad ANNEMARIE Scott 05/29 [facility] GROUP THERAPEUTI C PROCEDURES [id number] [id number] 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, [place] defined [place] MICHAEL LENNON M 06/14 [facility] Out[facility] En[facility] [id number] 06/17 [facility] Out[facility] Encounter [id number] [id number] 06/21 [facility] Out[facility] Encounter [id number] [id number] 06/24 [facility] [place] OFF[place] O/P EST MOD 30 MIN [id number] [id number] Diagnos is: ICD-10- CM D50.9 Iron deficie ncy anemia, unspeci Myranda Martinez M 06/26 [place] OFF[place] O/P EST LOW 20 MIN 48435-1.63 [id number] Diagnos is: ICD-10- CM L60.3 Nail dystrop hy JEANETTE GALVAN F 06/27 [place] [facility] GROUP THERAPEUTI C PROCEDURES [id number] [id number] 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, [place] SANDY LENNON 06/28 [facility] Out[facility] Encounter [id number] [id number] 06/28 [facility] NQHP OL DIG ASSMT&MGMT 5-10 [id number] [id number] Diagnos is: ICD-10- CM 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 KAITLIN VICENTE RISTY A 07/04 [facility] Out[facility] En[facility] [id number] [id number] 07/08 [facility] Out[facility] Encounter [id number] [id number] 07/08 [facility] [place] 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 19378-7.63 [id number] Diagnos is: ICD-10- CM E11.9 Type 2 diabete s mellitu s without complic ations TYRON HARRIS [place] [facility] Outpatient Encounter [id number] [id number] 07/11 [facility] GROUP THERAPEUTI C PROCEDURES [id number] [id number] 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, [place] MICHAEL LENNON 07/12 [facility] Outpatient Encounter [id number] 07/17 [facility] [place] [facility]NA[facility] TRN PER INDIV [id number] Diagnos is: ICD-10- CM E11.9 Type 2 diabete s mellitu s without complic ations LARISA PEREZ P 07/17 [place] Social History Combined list of available smoking, tobacco, and other social history from Department of Defense and Veterans Affairs facilities. Social History Type Response Date Comment Source Tobacco smoking status NHIS [facility] NEVER [facility] History of tobacco use VA-TOBACCO FORMER USER 01/20/2023 [place] History of tobacco use AL-TOBACCO QUIT 5 TO < 15 YRS 03/29/2021 [facility] History of tobacco use AL-TOBACCO FORMER USER 12/19/2019 [facility] History of tobacco use AL-TOBACCO FORMER USER 07/12/2018 [facility] History of tobacco use QUIT TOBACCO USE > 7 YEARS AGO 07/04/2017 stopped 7-10 years ago [facility] History of tobacco use QUIT TOBACCO USE 1-7 YEARS AGO 10/19/2016 [facility] History of tobacco use QUIT TOBACCO USE 1-7 YEARS AGO 02/01/2016 1.5 yrs. [facility] History of tobacco use QUIT TOBACCO USE 1-7 YEARS AGO 12/11/2014 [facility] History of tobacco use CURRENT SMOKER 02/17/2014 2 CIGARS A DAY [facility] Plan of Care List of future care activities from Department of Veterans Affairs facilities. Additional future care activities may be listed in the Assessment and Plan section. Date/Time Care Activity Care Activity Detail Facili ty 07/17/2024 AMBULATORY - MEDICINE AMBULATORY - MEDICI NE [place] Advance Directives List of completed, amended, or rescinded Advance Directives on record at Department of Veterans Affairs facilities. An actual copy of the Directive is not included. Date Advance Directive Provider Source 03/29/2021 ADVANCE DIRECTIVE [facility]
--- OUTSIDE RECORDS SUMMARY | 2024-07-17 12:26 | XMS_ITS | Encounter Summary ---
Author Name [facility] Organization [facility] Address [address] [place] [address] Care Team Providers Care Equine Science Instructor Name Role Phone TRESSA BOND Primary Care [...] PART B Jan 01, 2014 PART B [id number] PARISH KHAN PATIENT MEDICARE (WNR) MEDICARE (M) PART B Jan 01, 2014 PART B [id number] PARISH KHAN PATIENT MEDICARE (WNR) MEDICARE (M) PART A May 04, 2013 PART A [id number] PARISH KHAN PATIENT MEDICARE (WNR) MEDICARE (M) PART A May 04, 2013 PART A [id number] [phone] PARISH KHAN PATIENT [facility] (WNR) MEDICARE ADVANTAGE [facility] Apr 03, 2016 [facility] [id number] [phone] PARISH KHAN PATIENT Selected Encounter This section includes the information on record at [place] for the Encounter. Date/Time Encounter Type Encounter Description Reason Provider Source Jul 17, 2024 09:00 AM DIAB MANAGE TRN PER [facility] ICD-10-CM E11.9 Type 2 diabetes mellitus without complications MEE PEREZ Maicol Encounter Template Text not used by [place] Assessments - Encounter Diagnoses This section includes the primary and secondary diagnoses documented for the Encounter. Date/Time Primary/Secondary Diagnosis Diagnosis Name Provider Source Jul 17, 2024 11:09 AM PRIMARY Type 2 diabetes mellitus without complications SAURABH PEREZ [facility] Plan of Treatment: Future Appointments (+ 6 months) and Future Tests (+/- 45 days) The Plan of Treatment section includes future care activities for the patient from all [place] [facility]. This section includes future appointments and future orders which are active, pending or scheduled. Future Appointments This section includes appointments that were scheduled to occur 6 months from the date of the Encounter, up to a maximum of 20 appointments. The data comes from all [facility]. Appointment Date/Time Appointment Type Appointme nt Facility Name August 06, 2024 10:30 AM AMBULATORY - MEDICINE [facility] August 06, 2024 11:00 AM AMBULATORY - MEDICINE [facility] August 06, 2024 11:45 AM AMBULATORY - NONE [facility] August 06, 2024 03:30 PM AMBULATORY - MEDICINE [place] [facility] [place] [facility] August 29, 2024 11:00 AM AMBULATORY - REHAB MEDICIN E [facility] Sep 25, 2024 10:00 AM [facility] Oct 02, 2024 10:30 AM [facility] Oct 16, 2024 10:00 AM [facility] Dec 25, 2024 11:00 AM [facility] - [facility]IC[facility] Active, Pending, and Scheduled Orders This section includes a listing of several types of active, pending, and scheduled orders, including clinic medications orders, diagnostic test orders, procedure orders and consult orders; where the start date of the order is 45 days before the date of the Encounter or 45 days after the date of theEncounter. The data comes from all [facility]. Test Date/Time Test Type Test Details Facility Name Jun 26, 2024 12:04 PM Consult Order COMMUNITY [facility]-GEN SURGERY [facility] [employer] [facility] Jul 08, 2024 04:41 PM Consult Order COMMUNITY [facility]-NEPHROLOGY [facility] [employer] [facility] Jul 17, 2024 11:14 AM Laboratory - Chemistry Order VITAMIN D (25-OH) BLOOD (SST-SERUM) [facility] Jul 17, 2024 11:14 AM Laboratory - Chemistry Order IRON & TIBC PANEL BLOOD (SST-SERUM) [facility] Jul 17, 2024 11:14 AM Laboratory - Chemistry Order MAGNESIUM BLOOD (SST-SERUM) [facility] Jul 17, 2024 11:14 AM Laboratory - Chemistry Order BASIC METABOLIC PANEL (fasting) BLOOD (SST-SERUM) [facility] Jul 17, 2024 11:14 AM Laboratory - Chemistry Order LIVER FUNCTION BLOOD (SST-SERUM) [facility] Jul 17, 2024 11:14 AM Laboratory - Chemistry Order LIPID PANEL FASTING BLOOD (SST-SERUM) [facility] Jul 17, 2024 11:14 AM Laboratory - Chemistry Order HEMOGLOBIN A1C PANEL BLOOD (LAV-BLOOD) [facility] Jul 17, 2024 11:14 AM Laboratory - Chemistry Order TSH BLOOD (SST-SERUM) [facility] Jul 17, 2024 11:14 AM Laboratory - Chemistry Order PSA BLOOD (SST-SERUM) [facility] Jul 17, 2024 11:14 AM Laboratory - Chemistry Order CBC AND DIFF (AUTO) BLOOD (LAV-BLOOD) [facility] Jul 17, 2024 11:14 AM Laboratory - Chemistry Order FERRITIN BLOOD (SST-SERUM) [facility] August 06, 2024 11:45 AM Imaging - General Radiology Order CHEST (3 VIEWS) [facility] Social History: Smoking Status (Most current) and Tobacco Use (All prior to encounter date) This section includes the most current, and the historical, smoking and tobacco- related health factors from the [place] facility where the Encounter took place. Current Smoking Status This section includes the most current smoking, or tobacco-related health factor, from the [place] facility where the Encounter took place. Date/Time Current Smoking Status Comment Facil ity Jan 20, 2023 10:00 AM MI-TOBACCO FORMER USER [facility] Tobacco Use History This section includes a history of the smoking, or tobacco-related health factors, that were collected on or before the date of the Encounter. The data comes from the [place] facility where the Encounter took place. Date/Time Smoking Status/Tobacco Use Comment F acility Jan 20, 2023 10:00 AM VA-TOBACCO QUIT 15 YRS OR MORE [facility] Mar 29, 2021 11:00 AM VA-TOBACCO FORMER USER [facility] Mar 29, 2021 11:00 AM VA-TOBACCO QUIT 5 TO < 15 YRS [facility] Jul 12, 2018 02:39 PM VA-TOBACCO FORMER USER [facility] Jul 12, 2018 02:39 PM VA-TOBACCO QUIT 15 YRS OR MORE [facility] Jul 04, 2017 10:22 AM QUIT TOBACCO USE > 7 YEARS AGO stopped 7-10 years ago [facility] Oct 19, 2016 10:08 AM QUIT TOBACCO USE 1 -7 YEARS AGO [facility] Feb 01, 2016 01:15 PM QUIT TOBACCO USE 1 -7 YEARS AGO 1.5 yrs. [facility] Dec 11, 2014 02:03 PM QUIT TOBACCO USE 1 -7 YEARS AGO [facility] Feb 17, 2014 02:23 PM CURRENT SMOKER 2 CIGARS A DAY [facility] Feb 17, 2014 02:23 PM V1-PT DECLINES TOB ACCO CESSATION [facility] Feb 17, 2014 02:23 PM V1-PT THINKING ABO UT QUIT TOBACCO USE [facility] Advance Directives: All historical and current Section Date Range: From patient's date of to the date document was created. This section includes ALL of a patient's completed or amended [place] Advance and Rescinded Directives. The entries below indicate that a directive exists for the patient, but an actual copy is not included with this document. The data comes from all [place] facilities. Date Advance Directives Provider Source Mar 29, 2021 ADVANCE DIRECTIVE TYSON STORY [facility] Encounter Notes: All associated encounter notes This section contains the clinical notes associated to the Encounter. Date/Time Encounter Note(s) Provider Source Jul 17, 2024 11:10 AM DIABETOLOGY NOTE: LOCAL TITLE: INSULIN PUMP/CGM DOWNLOAD (T) STANDARD TITLE: DIABETOLOGY NOTE DATE OF NOTE: JUL 17, 2024@11:10 ENTRY DATE: JUL 17, 2024@11:10:55 AUTHOR: SAURABH PEREZ EXP COSIGNER: URGENCY: STATUS: COMPLETED Please select: Personal Continuous Glucose Monitor Date of Documentation:Jul Please see attached scanned document in [facility]. DX: Type 2 diabetes Sensor: Dexcom G7 /es/ SAURABH PEREZ RN,BSN, [facility], RN Signed: 07/17/2024 11:11 SAURABH PEREZ [facility] Jul 17, 2024 09:06 AM DIABETOLOGY EDUCAT ION NOTE: LOCAL TITLE: DIABETES EDU FOLLOW UP STANDARD TITLE: DIABETOLOGY EDUCATION NOTE DATE OF NOTE: JUL 17, 2024@09:06 ENTRY DATE: JUL 17, 2024@09:06:31 AUTHOR: SAURABH PEREZ EXP COSIGNER: URGENCY: STATUS: COMPLETED FOLLOW UP DIABETES EDUCATION VISIT Demographics: Patient Name: RICO KHAN Age: 74 Sex: MALE Race: WHITE MARITAL STATUS - Introduction: Gibbon Glade identified with 2 identifiers: [X] Full Name [X] Date of [ ] Address [ ] VA ID Card PATIENT PHONE - PHONE NUMBER [CELLULAR] - Is patient phone number correct, if not, enter below: 's phone number: RICO KHAN [address], [place], [address] MOST RECENT LABS: HEMOGLOBIN A1C TREND Collection DT Spec HGBA1c 04/15/2024 10:03 BLOOD 8.6 H 12/05/2023 13:20 BLOOD 7.8 H 07/20/2023 09:14 BLOOD 7.2 H 05/15/2023 10:56 BLOOD 7.1 H 12/26/2022 11:05 BLOOD 6.5 H CHEM 7 TREND LAB CUMULATIVE SELECTED Collection DT Spec GLUCOSE BUN CREATIN Sodium K+/Pot CL CO2 04/15/2024 10:03 SERUM 143 H 40 H 1.63 H 131 L 5.5 H 101 22 01/29/2024 11:08 SERUM 1.38 01/29/2024 11:08 SERUM 168 H 27 H 1.36 133 L 4.9 99 L 22 01/17/2024 09:39 SERUM 187 H 42 H 2.62 H 135 5.3 H 100 27 12/05/2023 13:20 SERUM 1.27 LAB CUMULATIVE SELECTED 2 No selection items chosen for this component. CHEM 7 Results Collection DT Spec Sodium K+/Pot CL CO2 GLUCOSE BUN 04/15/2024 10:03 SERUM 131 L 5.5 H 101 22 143 H 40 H 01/29/2024 11:08 SERUM 133 L 4.9 99 L 22 168 H 27 H 01/17/2024 09:39 SERUM 135 5.3 H 100 27 187 H 42 H 07/20/2023 09:14 SERUM 134 L 5.4 H 103 23 194 H 33 H 05/15/2023 10:56 SERUM 135 4.6 101 25 125 H 33 H 05/15/2023 10:56 SERUM 133 L 4.5 100 24 125 H 32 H 12/02/2022 13:21 SERUM 133 L 5.1 H 104 20 84 39 H 08/05/2022 09:49 SERUM 132 L 4.9 100 22 133 H 32 H 06/13/2022 10:47 SERUM 133 L 4.7 101 23 134 H 26 H 03/03/2022 10:32 SERUM 133 L 4.5 100 22 131 H 32 H 10/26/2021 09:09 SERUM 130 L 5.4 H 99 L 23 133 H 39 H 10/26/2021 09:09 SERUM 131 L 5.4 H 100 22 130 H 38 H 09/03/2021 10:12 SERUM 132 L 4.8 101 21 100 35 H 06/07/2021 10:37 SERUM 135 5.1 H 102 24 117 H 34 H 05/27/2021 11:01 URINE 56 05/27/2021 11:01 SERUM 133 L 5.0 100 comment 299 H 30 H 03/04/2021 10:18 SERUM 130 L 4.6 95 L 25 159 H 40 H 03/04/2021 10:17 SERUM 130 L 4.7 96 L 25 157 H 39 H 11/25/2020 11:38 SERUM 133 L 4.9 101 22 231 H 30 H 07/13/2020 10:54 SERUM 132 L 5.2 H 101 24 210 H 37 H 04/28/2020 10:17 SERUM 130 L 5.1 H 98 L 24 176 H 42 H 03/10/2020 10:37 SERUM 134 L 5.1 H 101 25 117 H 35 H 12/13/2019 10:12 SERUM 133 L 5.1 H 101 22 164 H 43 H 10/11/2019 10:31 SERUM 131 L 5.2 H 100 22 287 H 36 H 06/06/2019 10:57 SERUM 133 L 5.3 H 102 24 144 H 32 H 03/22/2019 09:27 SERUM 132 L 5.9 H 103 22 160 H 58 H 12/28/2018 11:21 SERUM 133 L 5.3 H 102 22 232 H 46 H 08/01/2018 11:06 SERUM 135 5.1 H 105 22 181 H 32 H 04/10/2018 13:16 SERUM 135 5.2 H 104 24 112 H 39 H 12/08/2017 10:11 SERUM 135 4.8 106 21 50 L 44 H 05/08/2017 10:58 SERUM 134 L 5.0 105 20 177 H 42 H 10/07/2016 10:11 SERUM 134 L 5.1 H 102 22 135 H 39 H 05/20/2016 10:36 SERUM 135 5.1 H 100 26 118 H 23 01/20/2016 10:34 SERUM 135 5.2 H 102 23 130 H 27 H 11/13/2015 11:41 SERUM 131 L 5.0 99 L 24 133 H 33 H 06/10/2015 10:20 SERUM 134 L 5.0 101 22 162 H 24 12/23/2014 14:22 SERUM 127 L 5.0 90 L 25 426 H 26 H 12/09/2014 11:05 SERUM 125 L 4.8 81 L 27 543 H* 27 H 02/17/2014 15:19 SERUM 136 4.6 95 L 29 111 H 20 LIPID PANEL TREND Collection DT Spec CHOL HDL CHO/HDL LDL-c TRIG 04/15/2024 10:03 SERUM 105 46 2.3 49 50 01/17/2024 09:39 SERUM 120 50 2.4 57 65 07/20/2023 09:14 SERUM 128 56 2.3 60 60 05/15/2023 10:56 SERUM 122 48 2.5 61 65 12/02/2022 13:21 SERUM 111 51 CREATININE-EGFR 04/15/24 10:03 1.63 H 01/29/24 11:08 1.38 01/29/24 11:08 1.36 EGFR - NONE FOUND WEIGHT: 120 lb [54.43 kg] (06/26/2024 10:34) HEIGHT: 65 in [165.1 cm] (01/13/2022 10:17) BMI: 20.0 REASON FOR EDUCATION VISIT TODAY: Gibbon Glade is now using the Dexcom G7 sensor and switched in December. He reports it is going well on the Dexcom G7 sensor. He does not even notice that sensor is even there. He has no skin reactions, compared to when he wore the Dexcom G6 sensor. He felt like he had a burn on his skin from the adhesive of the G6 sensor or it would fall off much sooner. Now he has no reaction and he does not even know the sensor is on his arm. He loves the Dexcom G7 sensor. Walks 2 miles per day when the weather is nice out. He loves to walk. Three weeks ago, he was in the hospital at [facility] with pneumonia for 4 days. WBC was high and Magnesium was low. Has an appt to have hernia repaired- being done at [facility]. The date has not been scheduled yet. NAME OF REFERRING PROVIDER: Dr. Kuhn Source of referral/primary care provider: Inpatient (X) Outpatient On a scale of 1 to 10 with one being not confident and ten being very confident. How confident are you about being successful managing your diabetes? 10 On a scale of 1 to 10 with one being not important and ten being very important. How important is diabetes management to you? 10 ALLERGIES: Patient has answered NKA Living arrangements: Alone X Spouse- Meredith (), disabled son and 2 dogs. Family Friend Support system Diabetes health history: 55 Years old at diagnosis Type of diabetes: Type 1 X Type 2 PRE diabetes Substance use: Review at next visit Cigarettes- reports he quit 5 years ago, however, it quit several times Alcohol- not much, (1-2 beers per week, plays cards on Tuesdays) Marijuana- no Other- smokes cigars 2 per day. None DIABETES SELF MANAGEMENT DIET: In the last 12 months, were there times when food did not last and there was no money to buy more? No problem. Goes to [employer] to receive food. Breakfast: coffee (with 2 Splenda and cream) with 2 eggs and 2 sausages and 1/2 Sierra Leonean muffin. Lunch (smaller meal): turkey breast on a sandwich with potatoes. Or spaghetti, or hardboard grinder, or left overs. Dinner: chicken, and stews or soups; roast; spaghetti. He does not eat bread or butter with his meals Snacks: snacks at night: popcorn, pie, slice of cake, ice cream; cookies; brownies, he likes chocolate Beverages consumed: coffee, and coffee; only drinks OJ when low Goal weight desired: lbs Weight is stable. SLEEP: Typical sleep pattern: Bedtime 11 pm Waketime 7 am Naps rarely Comments: Sleeping well; no sleep apnea, says, he sleeps like a log . PHYSICAL ACTIVITY Type: Walking every day, walking dog, weather permitting. Walking 1.5 hours. House cleaning Duration: Limitations: vision impaired, legally blind. Big Hockey family- he loves watching it and he use to play it. DIABETES MEDICATIONS Glargine 8 units once a day, before bed Empagliflozin 25 mg, 1 tab once a day Sitagliptin 100 mg, 1 tab once a day STOPPED taking Novolog. He reports it was stopped after he saw Michelle Galvan PharmD. STORAGE OF INSULIN/OTHER INJECTABLES: INJECTIONS SITES: stomach and legs SITES VIEWED: No ANY EVIDENCE OF LIPOHYPERTROPHY: No History of hypoglycemia: No recent low blood sugars. Symptoms: can always tell, lightheaded or dizzy Frequency: Not happening often. Typical treatment: orange juice and glucose tablets Medical ID: Has one. Glucagon kit: MONITORING He is connected to [employer] with his cell phone. Currently using the [employer] Local G7 sensor. Download from today: Dexcom Clarity Rico Date of : 1950 Generated at: Jul 17, 2024 9:08 AM EDT Reporting period: MonJun 18, 2024 - MonJul 17, 2024 Glucose Details Average glucose: 186 mg/dL GMI: 7.8% Standard deviation: 52 mg/dL Coefficient of Variation: 27.7% Time in Range Very High: 12% High: 37% In Range: 51% Low: 0% Very Low: 0% Target Range 70-180 mg/dL Sensor usage Days with data: Time active: 92% Avg. calibrations per day: 0.0 The main trend noted are elevated glucose between the hours of 3 pm until 3 am and again between 9:30 am until 11 am. No pattern of hypoglycemia. 's blood sugars are generally highest between the hours of 3 pm until 7 pm (after Supper). Download from February of 2024: Dexcom Clarity Rico Date of : 1950 Generated at: Feb 14, 2024 2:47 PM EST Reporting period: MonJan 16, 2024 - MonFeb 14, 2024 Glucose Details Average glucose: 172 mg/dL Standard deviation: 45 mg/dL Time in Range Very High: 5% High: 36% In Range: 59% Low: 0% Very Low: <1% Target Range 70-180 mg/dL CGM Details Sensor usage: 97% Days with CGM data: The main trend noted are elevated glucose between the hours of 12 am until 3 am, 10 am until 12:30 pm and again between 5 pm until 12 am. No pattern of hypoglycemia noted. Sensor Glucose What is your Time in Range (TIR) target? What is your target A1c? Diabetes related illnesses or hospitalizations in the past year? Comments: DIABETES DISTRESS On a scale of 1-6 where 1 is no problem and 6 is a very serious problem, rate the following: Feeling overwhelmed by the demands of living with diabetes: 1 Feeling that I am failing my diabetes routine: 1 DIABETIC-RELATED CHRONIC COMPLICATIONS EYES: Cataracts- beginning of it. Blindness- has a disease that affects his vision; notices that his vision is getting worse and can't see anything without light. He reports this disease does not have a name, however, it is common in [place]. Feels like his site is getting worse. This condition runs in the family. Comments: Being seen next month by Dr. Carrasco KIDNEYS: Comments: Has an appt with a kidney specialist in [address] Use to see Dr. Costello. FEET/LEGS/SKIN: No amputations Tingling/Numbness: Hands X Feet- has pain with walking at night. Also has cramps in the middle of the night. Comments: Sees petrol tanker driver for regular visits: Seeing Dr. Payne in October. CARDIOVASCULAR/CEREBROVASCULAR No history of stroke or PR. Comments: Has seen restaurant shift leader in the past. He had some problem one night and he spent a night in the hospital. He had a slight skip to his heart beat and he wore a monitor for a week. Did not find anything with the monitor. OTHER MEDICAL CONCERNS: Prior diabetes education: SMART GOALS HEALTH GOAL #1: In order to meet this goal, I will: Continue using the Dexcom G7 sensor to check glucose. HEALTH GOAL #2: In order to meet this goal, I will: Keeping track of exercise with an bozena on his cell phone. Is visually impaired and cannot add exercise to Dexcom bozena. Clinical or Quality of Life outcome baseline: ASSESSMENT: Kindly referred by Dr. Kuhn, however, Gibbon Glade reports he is now seeing a Pharmacist. Gibbon Glade's last A1C was 8.6% in April. He continues to use the Dexcom G7 sensor with his cell phone and he is very thrilled with this sensor and how he has no skin reactions from it. He had terrible skin reactions with the Dexcom G6 sensor. He is legally blind and has many adaptations that the [facility] has provided for [facility]. He needs extra light to see anything. He can only see shadows. Sensor download reveals that he has been higher after 3 pm until 1 am and he has a slight increase in his glucose between 9:30 am and 11 am. He admits to snacking late at night when he watches hockey games. He does snack on foods with chocolate or sweets. He was on Novolog in the past, however, this was discontinued. He might need a small dose of Novolog with Dinner/Supper. We did notice that there is less of a spike in his glucose when he is more active. He believes that when the weather improves, he will be walking more, which should help make a difference. Gibbon Glade is scheduled to see Pharmacist in August and will return to Diabetes Education in October. Behavioral Goal #1 met: 100% of the time. Using sensor regularly. Learning limitations/special education needs: Poor vision, can only see shadows. Uses a cane to help him walk Barriers to learning: X Visual- legally blind, poor peripheral vision Auditory Literacy Language None Cultural influences: None Health beliefs/attitudes/feelings about diabetes: No Readiness to learn: Will significant other participate in program? Yes, Meredith _ TEACHING MATERIALS GIVEN: _ EDUCATION: -Reviewed sensor download in detail. -Reviewed pattern management and insulin adjustments. INSTRUCTIONS: -Continue using the Dexcom G7 sensor today to monitor blood sugars. -Please call [facility] if the sensor dies on you or falls off to have it replaced. -Continue current diabetes medications: Glargine 8 units once a day, before bed Empagliflozin 25 mg, 1 tab once a day Sitagliptin 100 mg, 1 tab once a day -Please call with any questions or concerns. -Follow up with Pharmacist in August and follow up with Hat Parts Cutter Machine in October.. Patient/Family Verbalized Understanding FUTURE APPOINTMENTS: 08/06/2024 10:30 [facility] OPTOMETRY VSL IMG 08/06/2024 11:00 NHM OPTOMETRY 3 08/06/2024 11:45 NHM XRAY NONCOUNT 08/06/2024 15:30 SPR PHONE PHARM PACT 1 08/29/2024 11:00 NHM OPTOMETRY LOW VSN 09/25/2024 10:00 SPR PACT 7 CONCRETE BUCKET LOADER 10/02/2024 10:30 SPR PODIATRY 1 12/25/2024 11:00 SPR PACT EIGHT MD ROMERO DM type is : Type 2 diabetes Length of Visit: 60 minutes /es/ SAURABH PEREZ, RN,BSN, [facility] [place] [facility], RN Signed: 07/17/2024 11:09 Receipt Acknowledged By: * AWAITING SIGNATURE * TRESSA BOND 07/17/2024 11:14 /es/ Michelle Galvan, PharmD Clinical Pharmacy Practitioner SAURABH PEREZFIELD
--- OUTSIDE RECORDS SUMMARY | 2024-07-17 12:27 | XMS_ITS | Patient Health Record ---
Author Organization [facility] Address [address] [place] [id number] Care Team Providers Care Timber Buyer Name Role Phone Celeste Mishra Primary Care Provider Jason Zavaleta Unavailable [phone] Reason For Referral No Information Medications Medication [...] Problem Status W/U Status Risk Notes Problem [id number] Encounter for screening for malignant neoplasm of colon (Z12.11) Active confirmed Problem [id number] Diarrhea, unspecified type (R19.7) Active confirmed Plan Of Treatment Future Test Test Name Order Date COLONOSCOPY 12/25/2019 Insurance Providers Payer Name Payer Address Payer Phone Subscriber Number Group Number Insured Name Patient Relationship to Insured Coverage Start Date Coverage End Date [facility] [employer] [address] [place] [address] [id number] RICO KHAN Self - patient is the insured Medical (General) History Medical History History ICD Code IDDM Hypertension Legally Blind - Vision Impaired Denies HI,CVA,Lung disease,renal disease Negative colonoscopy in appr ox. 2009 at [facility] and told to do one in 10 years Told of negative stool test at home 2019 --? Cologuard GERD Surgical History Surgery Date(Month/Year)
--- OUTSIDE RECORDS SUMMARY | 2024-07-17 12:27 | XMS_ITS | Encounter Summary ---
Author Name [facility] Organization [facility] [place] Address [address] [place] [id number] Care Team Providers Care Book Packer Name Role Phone TRESSA BOND Primary Care [...] PART B Jan 01, 2014 PART B [id number] [place] PATIENT MEDICARE (WNR) MEDICARE (M) PART B Jan 01, 2014 PART B [id number] [place] PATIENT MEDICARE (WNR) MEDICARE (M) PART A May 04, 2013 PART A [id number] [place] PATIENT MEDICARE (WNR) MEDICARE (M) PART A May 04, 2013 PART A [id number] [place] PATIENT [facility] (WNR) MEDICARE ADVANTAGE [facility] ([facility]) Apr 03, 2016 [facility] ([facility]) [id number] [phone] [place] PATIENT Selected Encounter This section includes the information on record at [place] for the Encounter. Date/Time Encounter Type Encounter Description Reason Pro vider Source Jul 17, 2024 08:52 AM Outpatient Encounter PRIMARY CARE/MEDICINE IHE Encounter Template Text not used by [place] Plan of Treatment: Future Appointments (+ 6 months) and Future Tests (+/- 45 days) The Plan of Treatment section includes future care activities for the patient from all [place] [facility]. This section includes future appointments and future orders which are active, pending or scheduled. Future Appointments This section includes appointments that were scheduled to occur 6 months from the date of the Encounter, up to a maximum of 20 appointments. The data comes from all [facility]. Appointment Date/Time Appointment Type Appointme nt Facility Name August 06, 2024 10:30 AM AMBULATORY - MEDICINE [place] [facility] [place] [facility] August 06, 2024 11:00 AM AMBULATORY - MEDICINE [place] [facility] [place] [facility] August 06, 2024 11:45 AM AMBULATORY - NONE [facility] August 06, 2024 03:30 PM AMBULATORY - MEDICINE [place] [facility] [place] [facility] August 29, 2024 11:00 AM AMBULATORY - REHAB MEDICIN E [facility] [place] [facility] Sep 25, 2024 10:00 AM [facility]ULATORY - MEDICINE [facility] Oct 02, 2024 10:30 AM [facility] Oct 16, 2024 10:00 [facility] Dec 25, 2024 11:00 AM AMBULATORY [...] of theEncounter. The data comes from all [facility]. Test Date/Time Test Type Test Details Facility Name Jun 26, 2024 12:04 PM Consult Order [facility]GEN SURGERY Cons Annual Green[facility] Manager[facility] Jul 08, 2024 04:41 PM Consult Order [facility]-NEPHROLOGY Cons Annual [facility] Jul 17, 2024 11:14 AM Laboratory - Chemistry Order IRON & TIBC PANEL BLOOD (SST-SERUM) [facility] Jul 17, 2024 11:14 AM Laboratory - Chemistry Order MAGNESIUM BLOOD (SST-SERUM) [facility] Jul 17, 2024 11:14 AM Laboratory - Chemistry Order BASIC METABOLIC PANEL (fasting) BLOOD (SST-SERUM) [facility] Jul 17, 2024 11:14 AM Laboratory - Chemistry Order LIVER FUNCTION BLOOD (SST-SERUM) [facility] Jul 17, 2024 11:14 AM Laboratory - Chemistry Order VITAMIN D (25-OH) BLOOD (SST-SERUM) [facility] Jul 17, 2024 11:14 AM Laboratory - Chemistry Order HEMOGLOBIN A1C PANEL BLOOD (LAV-BLOOD) [facility] Jul 17, 2024 11:14 AM Laboratory - Chemistry Order LIPID PANEL FASTING BLOOD (SST-SERUM) [facility] Jul 17, 2024 11:14 AM Laboratory - Chemistry Order TSH BLOOD (SST-SERUM) [facility] Jul 17, 2024 11:14 AM Laboratory - Chemistry Order PSA BLOOD (SST-SERUM) [facility] Jul 17, 2024 11:14 AM Laboratory - Chemistry Order CBC AND DIFF (AUTO) BLOOD (LAV-BLOOD) [facility] Jul 17, 2024 11:14 AM Laboratory - Chemistry Order FERRITIN BLOOD (SST-SERUM) [facility] August 06, 2024 11:45 AM Imaging - General Radiology Order CHEST (3 VIEWS) [facility] Social History: Smoking Status (Most current) and Tobacco Use (All prior to encounter date) This section includes the most current, and the historical, smoking and tobacco- related health factors from the [place] facility where the Encounter took place. Current Smoking Status This section includes the most current smoking, or tobacco-related health factor, from the [place] facility where the Encounter took place. Date/Time Current Smoking Status Comment Facil ity Jan 29, 2024 10:34 AM [place]-TOBACCO NEVER USED [facility] Tobacco Use History This section includes a history of the smoking, or tobacco-related health factors, that were collected on or before the date of the Encounter. The data comes from the [place] facility where the Encounter took place. Date/Time Smoking Status/Tobacco Use Comment F acility Dec 19, 2019 12:00 PM [place]-TOBACCO FORMER USER [facility] Dec 19, 2019 12:00 PM VA-TOBACCO QUIT 1 TO < 5 YRS [facility] Advance Directives: All historical and current Section Date Range: From patient's date of to the date document was created. This section includes ALL of a patient's completed or amended [place] Advance and Rescinded Directives. The entries below indicate that a directive exists for the patient, but an actual copy is not included with this document. The data comes from all [place] facilities. Date Advance Directives Provider Source Mar 29, 2021 ADVANCE DIRECTIVE TYSON STORY [facility] Encounter Notes: All associated encounter notes This section contains the clinical notes associated to the Encounter. Date/Time Encounter Note(s) Provider Source Jul 17, 2024 08:52 AM PRIMARY CARE NOTE: LOCAL TITLE: WALK-IN NOTE PRIMARY CARE (T) STANDARD TITLE: PRIMARY CARE NOTE DATE OF NOTE: JUL 17, 2024@08:52 ENTRY DATE: JUL 17, 2024@08:52:17 AUTHOR: AGNES REDDY COSIGNER: URGENCY: STATUS: COMPLETED WALK-IN NOTE PRIMARY CARE (T) Has ADDENDA <====Click to Start Advanced Medical Support presents to the Primary Care clinic with the following request: [ ]Medication Renewal/Refill [ ]Consultation with Team RN [ ]Symptoms [ X ]Other labs for meagnesium The states they are: [ ]Waiting [ X ]Not Waiting No Walk in visit scheduled with PACT Nurse [ X ] At this encounter the Coulter's demographics were verified. [ X ] At this encounter the Coulter's Insurance information was verified. [ X ] At this encounter the below scheduled visits for the were discussed and appointment reminder card was offered. Future appointments: 07/17/2024 09:00 SPR DM EDUC RN 1 08/06/2024 10:30 [facility] OPTOMETRY VSL IMG 08/06/2024 11:00 NH[facility] OPTOMETRY 3 08/06/2024 11:45 NHM XRAY NONCOUNT 08/06/2024 15:30 SPR PHONE PHARM PACT 1 08/29/2024 11:00 [facility] OPTOMETRY LOW VSN 09/25/2024 10:00 SPR PACT 7 FIELD ASSESSOR 10/02/2024 10:30 SPR PODIATRY 1 12/25/2024 11:00 [facility] PACT EIGHT MD ROMERO Coulter was requesting labs for magnesium to be done. Please call when labs are in . /kayla/ AGNES MALLORY Signed: 07/17/2024 08:53 Receipt Acknowledged By: 07/17/2024 09:10 /kayla/ BARTOLOME LEMUS RN-BC REGISTERED NURSE 07/17/2024 09:03 /kayla/ JEREMIAS WILHELM LPN Licensed Practical Nurse 07/17/2024 ADDENDUM STATUS: COMPLETED Spoc vest front presser was notified by PACT CHURCH ORGANIST via [facility] that already has these lab orders in place /BARTOLOME Steinberg RN-BC REGISTERED NURSE Signed: 07/17/2024 09:11 AGNES REDDY
== END 2024-07-17 10:56 | disposition home or self-care (01) ==
LOC: HO.HKAS 10:33
PROVIDERS: PCP General Practice; Visit Provider Internal Medicine Hypertension Specialist
DX: E87.1 Hypo-osmolality and hyponatremia (principal)
CPT/HCPCS: 99214

== ENCOUNTER → 2024-07-17 10:33 | Outpatient (BNVA) | payer OTHER, SELFPAY | PROVIDERS: PCP General Practice; Visit Provider Internal Medicine Hypertension Specialist | DX: E87.1 Hypo-osmolality and hyponatremia (principal); E11.9 Type 2 diabetes mellitus without complications; I10 Essential (primary) hypertension; Z79.4 Long term (current) use of insulin | CPT/HCPCS: 99212 ==

== ENCOUNTER 2024-08-13 10:28 | Outpatient (AMB) | payer OTHER, SELFPAY ==
--- NOTE | 2024-08-13 10:30 | MHC.OFFVIS ---
Vital Signs 08/13/24 10:39 Height 5 ft 5 in Weight 126 lb BMI 21.0 BP 135/66 Blood Pressure Location Rt brachial Position Sitting Pulse 107 H Intake Visit Reasons: Dr. Nair~ [facility] consult Intake Note: Patient last seen by Dr. Nair on 07-16-2024. Patient here to discuss Right inguinal hernia surgery. Patient c/o pain after walking dog. CT abd: 06-16-2024 Portfolio Director Required: No Accompanied by: spouse Amaris Allergies No Known Allergies Allergy (Verified 08/13/24 10:38) Medication List - Last Reconciled 08/13/24 by Brian Armenta MD amlodipine 5 mg PO DAILY atorvastatin 80 mg PO DAILY empagliflozin (Jardiance) 25 mg PO DAILY ezetimibe 10 mg PO DAILY ferrous sulfate 325 mg PO DAILY fluticasone propionate 50 mcg/actuation 50 mcg inhalation Q10D gabapentin 300 mg PO TID glucose 16 grams PO NEEDED PRN insulin glargine-yfgn 6 units subcut BEDTIME lisinopril 20 mg PO DAILY magnesium oxide 400 mg PO BID omeprazole 20 mg PO DAILY@0630 primidone 50 mg PO BEDTIME sitagliptin 100 mg PO DAILY sitagliptin phosphate (Januvia) 100 mg PO DAILY tamsulosin (Flomax) 0.4 mg PO BEDTIME HPI HPI Dr. Nair~ [facility] consult: Details: 74-year-old male here for follow-up for a right inguinal hernia. He actually was being followed by Dr. Nair. He was admitted to the hospital 2 months ago for multifocal pneumonia. He had a CAT scan done at that time showing a right inguinal hernia with note of part of the cecum within the hernia itself. He denies any GI complaints currently. He is visually impaired and uses a walking cane. He says he is actually legally blind. Otherwise, he says he is quite healthy especially for his age. He does state that he has noticed this reducible mass on his right groin which could gently becomes uncomfortable for him for a while now. [facility] Medical History Peripheral neuropathy Diabetes Hyperlipidemia HTN (hypertension) Surgical History History of colonoscopy Social History Household Members: Family Housing: House Patient Tobacco Use Status: Former Tobacco user Cigarettes Per Day: 1 Advance Directives Date on File: 05/05/19 service: No Review of Systems Const Denies chills and Denies fever(s) Eyes Details: Legally blind Card Denies chest pain, Denies dyspnea and Denies dyspnea on exertion Resp Denies cough, Denies dyspnea and Denies dyspnea on exertion GI Denies hematochezia and Denies change in bowel habits Denies hematuria and Denies difficulty urinating Musc Denies back pain and Denies limited range of motion Neuro Denies focal weakness and Denies convulsions Psych Denies depression and Denies mood swings Physical Exam Const General: comfortable and no acute distress Orientation/consciousness: patient oriented x3 Neck Neck: Yes no lymphadenopathy Resp Auscultation: clear to auscultation bilaterally Cardio Rhythm: regular rhythm GI Other: Reducible right inguinal hernia, with some discomfort Palpation (GI): Soft to palpation, nontender and no guarding Neuro General: patient oriented x3 Assessment & Plan Assessment & Plan (1) Right inguinal hernia: Code(s): K40.90 - Unilateral inguinal hernia, without obstruction or gangrene, not specified as recurrent Category: Surgical Plan: He has a reducible right inguinal hernia and this seems to involve the cecum on the CAT scan. I had a long discussion with him about the option of repair of the right inguinal hernia with mesh. I explained the technique of this procedure. I reviewed the risks including but not limited to bleeding, infections, injury to bowel, recurrence, postop pain, injury to other organs including has deferens testicle, as well as the benefits and alternatives. I reviewed with him what to expect postoperatively. He says that he wants to proceed with repair. Coding Level of Care Code Est Pt Level 3 (68570) Diagnoses Right inguinal hernia K40.90
[2024-08-13 10:39] VITALS: BP 135/66; PULSE 107; BMI 21.0
--- OUTSIDE RECORDS SUMMARY | 2024-08-13 11:35 | XMS_ITS ---
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 Name Role Phone TRESSA BOND Primary Care [...] PART B Jan 01, 2014 PART B [id number] PARISH KHAN PATIENT MEDICARE (WNR) MEDICARE (M) PART B Jan 01, 2014 PART B [id number] PARISH KHAN PATIENT MEDICARE (WNR) MEDICARE (M) PART A May 04, 2013 PART A [id number] PARISH KHAN PATIENT MEDICARE (WNR) MEDICARE (M) PART A May 04, 2013 PART A [id number] PARISH KHAN PATIENT [facility] (R) MEDICARE ADVANTAGE [facility] ([facility]) Apr 03, 2016 [facility] ([facility]) [id number] [phone] NEILAL,PARISH REAL PATIENT Selected Encounter This section includes the information on record at NM for the Encounter. Date/Time Encounter Type Encounter Description Reason Provider Source August 09, 2024 10:00 AM GROUP THERAPEUTIC PROCEDURES VIST COORDINATOR ICD-10-CM H54.8 Legal blindness, as defined in [place] KEKE LENNON [facility] Encounter Template Text not used by NM Assessments - Encounter Diagnoses This section includes the primary and secondary diagnoses documented for the Encounter. 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 This section includes future appointments and future orders which are active, pending or scheduled. Future Appointments This section includes appointments that were scheduled to occur 6 months from the date of the Encounter, up to a maximum of 20 appointments. The data comes from all NM treatment facilities. Appointment Date/Time Appointment Type Appointme nt Facility Name August 29, 2024 11:00 AM AMBULATORY - REHAB MEDICIN E [facility] Sep 25, 2024 10:00 AM AMBULATORY - MEDICINE [facility] Oct 02, 2024 10:30 AM AMBULATORY - MEDICINE [facility] Oct 16, 2024 10:00 AM AMBULATORY - MEDICINE [facility] Dec 25, 2024 11:00 AM AMBULATORY - MEDICINE [facility] Active, Pending, and Scheduled Orders This section includes a listing of several types of active, pending, and scheduled orders, including clinic medications orders, diagnostic test orders, procedure orders and consult orders; where the start date of the order is 45 days before the date of the Encounter or 45 days after the date of theEncounter. The data comes from all NM treatment [facility]. 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 Radiology Reports and Pathology Reports are provided separately, in subsequent sections. Lab Results This section contains the Chemistry/Hematology Results that were resulted 30 days before or 30 daysafter the date of the Encounter. Date/Time Source Result Type Result - Unit Interpretation Reference Range Specimen Type Comment Jul 17, 2024 11:14 AM [facility] FERRITIN SERUM Specimen Type: SERUM No comment entered. Ordering Provider: JAYDEN BOND Report Released Date/Time: Jul 04, 2024 10:36 AM Reporting Lab: [address] [address] Performing Lab: [address] [address] FERRITIN 144.3 ng/mL 21.8-274.7 Jul 17, 2024 11:14 AM [facility] CBC AND DIFF (AUTO) BLOOD Specimen Type: BLOO D No comment entered. Ordering Provider: TRESSA BOND Report Released Date/Time: Jul 04, 2024 10:36 AM Reporting Lab: [facility] [address] [facility] [address] Performing Lab: [address] [address] WBC 10.23 10*3/uL 4.50-11.00 RBC 3.66 10*6/uL L 4.23-5.66 HGB 11.6 g/dL L 12.8-17 HCT 34.4 L 39.2-50.4 MCV 94.0 fL 82-99 MCHC 33.7 g/dL 30.8-35.1 PLT 292 10*3/uL 140-360 MPV 9.4 fL 9.2-12.4 RDW-CV 13.5 12.0-16.0 MONO, ABS 0.84 10*3/uL 0.30-1.10 MCH 31.7 pg 26.2-32.6 NEUT % 70.1 43.7-75.8 LYMPH % 17.3 14.0-42.3 MONO % 8.2 5.1-13.7 EOS % 2.9 0.4-6.8 BASO % 1.0 0.1-2.0 NEUT, ABS 7.17 10*3/uL 2.20-7.60 LYMPH, ABS 1.77 10*3/uL 1.00-3.20 EOS, ABS 0.30 10*3/uL 0.03-0.44 BASO, ABS 0.10 10*3/uL 0.01-0.13 IMMATURE GRAN % 0.5 0.0-0.7 IMMATURE GRAN, ABS 0.05 10*3/uL 0.00-0.0 6 NRBC % 0.0 0.0-0.0 NRBC, ABS 0.00 10*3/uL 0.00-0.00 Jul 17, 2024 11:14 AM [facility] VITAMIN D (25-OH) SERUM Specimen Type : SERUM No comment entered. Ordering Provider: DARLIN BALDWIN Report Released Date/Time: May 21, 2024 08:43 AM Reporting Lab: [address] [address] Performing Lab: [address] [address] VITAMIN D (25-OH) 13.6 ng/mL L 20-50 Jul 17, 2024 11:14 AM [facility] MAGNESIUM SERUM Sp ecimen Type: SERUM No comment entered. Ordering Provider: DARLIN BALDWIN Report Released Date/Time: May 21, 2024 08:43 AM Reporting Lab: [address] [address] Performing Lab: [address] [address] MAGNESIUM 1.5 mg/dL L 1.6-2.6 Jul 17, 2024 11:14 AM [facility] IRON & TIBC PANEL SERUM Specimen Type : SERUM No comment entered. Ordering Provider: DARLIN BALDWIN Report Released Date/Time: May 21, 2024 08:43 AM Reporting Lab: [address] [address] Performing Lab: [address] [address] TIBC 268 ug/dL 204-475 IRON 76 ug/dL 65-175 Transferrin Saturation 28.4 15-45 Transferrin (TRF) 203 mg/dL 180-382 Jul 17, 2024 11:14 AM [facility] HEMOGLOBIN A1C PANEL BLOOD Specimen T ype: BLOOD Comment: Values obtained from A1C measurements can vary. For atypical A1C assays, a reported value of 7.0 could actually be between 6.72 and 7.28 if measured by a reference method. A reported value of 9.0 could actually be between 8.73 and 9.27. Ref: http://www.ngsp.org/CAPdata.asp Ordering Provider: DARLIN BALDWIN Report Released Date/Time: May 21, 2024 08:43 AM Reporting Lab: [address] [address] Performing Lab: [address] [address] HEMOGLOBIN A1C 7.5 H 4.0-5.6 Jul 17, 2024 11:14 AM [facility] TSH SERUM Sp ecimen Type: SERUM No comment entered. Ordering Provider: DARLIN BALDWIN Report Released Date/Time: May 21, 2024 08:43 AM Reporting Lab: [address] [address] Performing Lab: [address] [address] TSH 1.19 u[IU]/mL 0.35-4.94 Jul 17, 2024 11:14 AM [facility] BASIC METABOLIC PANEL (fasting) SERUM Specimen Type: SERUM No comment entered. Ordering Provider: DARLIN BALDWIN Report Released Date/Time: May 21, 2024 08:43 AM Reporting Lab: [address] [address] Performing Lab: [address] [address] UREA NITROGEN 22 mg/dL 8-26 GLUCOSE 114 mg/dL H 65-100 SODIUM 132 mmol/L L 136-145 POTASSIUM 4.8 mmol/L 3.5-5.1 CHLORIDE 100 mmol/L 98-107 CO2 25 meq/L 23-31 CALCIUM 9.1 mg/dL 8.8-10 CREATININE, Serum 1.06 mg/dL 0.72-1.25 eGFR(CKD-EPI 2020) 73 mL/min >60 Jul 17, 2024 11:14 AM [facility] LIVER FUNCTION SERUM Specimen Type: SERUM No comment entered. Ordering Provider: DARLIN BALDWIN Report Released Date/Time: May 21, 2024 08:43 AM Reporting Lab: [address] [address] Performing Lab: [address] [address] PROTEIN,TOTAL 7.5 g/dL 6.4-8.3 ALBUMIN 3.4 g/dL 3.2-4.6 ALKALINE PHOSPHATASE 112 U/L 40-150 AST 30 U/L 5-34 ALT 15 U/L BILIRUBIN, TOTAL 0.3 mg/dL 0.2-1.2 Jul 17, 2024 11:14 AM [facility] LIPID PANEL FASTING SERUM Specimen Ty pe: SERUM No comment entered. Ordering Provider: DARLIN BALDWIN Report Released Date/Time: May 21, 2024 08:43 AM Reporting Lab: [facility] [address] [address] Performing Lab: [address] [address] CHOLESTEROL 157 mg/dL TRIGLYCERIDE 74 mg/dL 0-150 LDL calculated 73 mg/dL 0-129 CHOL/HDL 2.3 HDL CHOLESTEROL 69 mg/dL >40 Jul 17, 2024 11:14 AM [facility] PSA SERUM Sp ecimen Type: SERUM No comment entered. Ordering Provider: DARLIN BALDWIN Report Released Date/Time: May 21, 2024 08:43 AM Reporting Lab: [facility] [address] [address] Performing Lab: [facility] [address] [address] PSA 1.0 ng/mL 0.0-4.0 Social History: Smoking Status (Most current) and Tobacco Use (All prior to encounter date) This section includes the most current, and the historical, smoking and tobacco- related health factors from the NM facility where the Encounter took place. Current Smoking Status This section includes the most current smoking, or tobacco-related health factor, from the NM facility where the Encounter took place. Date/Time Current Smoking Status Comment Ja ity Jan 29, 2024 10:34 AM VA-TOBACCO NEVER USED [facility] Tobacco Use History This section includes a history of the smoking, or tobacco-related health factors, that were collected on or before the date of the Encounter. The data comes from the NM facility where the Encounter took place. Date/Time Smoking Status/Tobacco Use Comment F acility Dec 19, 2019 12:00 PM VA-TOBACCO FORMER USER [facility] Dec 19, 2019 12:00 PM NM-TOBACCO QUIT 1 TO < 5 YRS [facility] Advance Directives: All historical and current Section Date Range: From patient's date of to the date document was created. This section includes ALL of a patient's completed or amended NM Advance and Rescinded Directives. The entries below indicate that a directive exists for the patient, but an actual copy is not included with this document. The data comes from all NM facilities. Date Advance Directives Provider Source Mar 29, 2021 ADVANCE DIRECTIVE TYSON STORY [facility] Radiology Reports: +/- 30 days of the [...] the Encounter. The data comes from all NM treatment facilities. Date/Time Radiology Report Provider Source August 06, 2024 10:50 AM CHEST (2 VIEWS): RICO KHAN [id number] -1950 M Exm Date: AUGUST 06, 2024@10:50 Req Phys: TRESSA BOND Loc: [facility]/NO/BLIND REHAB TELE (Req Img Loc: [facility]/BUILDING 1 Service: Unknown [facility] BLANCA METZ [id number] (Case [id number] COMPLETE) CHEST (2 VIEWS) (RAD Detailed) CPT:18315 Reason for Study: Recent pneumonia Clinical History: IDDM, Report Status: Verified Date Reported: AUGUST 06, 2024 Date Verified: AUGUST 06, 2024 Smoking Pipes Cleaner E-Sig:/ES/BETTY BURT JR Report: Study: PA and lateral chest x-ray. Comparison: None. Findings: Low lung volumes are present. Mild fibrotic changes are present throughout the lungs. No airspace disease process is identified. No acute pulmonary process is identified. The costophrenic sulci are sharp. Cardiac and mediastinal contours and pulmonary vascularity are normal. No acute skeletal abnormalities are identified. Age-appropriate degenerative changes are seen to the spine. Impression: Mild fibrotic changes of the lungs and low lung volumes with no airspace disease process identified. If the outside report or images are provided, an addended report may be generated. Imaging follow-up should be as clinically indicated. Primary Diagnostic Code: No immediate attention required Primary Interpreting Staff: BETTY BURT JR, Radiologist (Smoking Pipes Cleaner) /BETTY LEIVA JR [facility] Encounter Notes: All associated encounter notes This section contains the clinical notes associated to the Encounter. Date/Time Encounter Note(s) Provider Source August 09, 2024 11:38 AM VIST NOTE: LOCAL TITLE: VIS SUPPORT GROUP STANDARD TITLE: VIST NOTE DATE OF NOTE: AUGUST 09, 2024@11:38 ENTRY DATE: AUGUST 09, 2024@11:39:05 AUTHOR: KEKE LENNON COSIGNER: URGENCY: STATUS: COMPLETED Support Group Note Appointment Information: (x) VVC Support Group VVC Clinician Resources Only: E911 (Emergency Call Relay Center): [phone] Local emergency response numbers can be found at http://www.TASCET.PageScience. National Veterans Crisis Line - (1- 422-203-YHQK) press #1. JIM Suicide Coordinator [phone], Ext. [phone]; Back-up Ext. [phone] Urgent Care, [place]ade[place] FERNANDEZ [phone], Ext. [phone] Emergency Plan: confirmed they were at their home location and address/telephone numbers in chart were correct. Any [place] not at home confirmed location and address. [place] reported that location is private and safe: Yes Informed Consent: [place] informed of the risks and benefits of Telehealth video care. [place] has the right to refuse video services. If refuses video visit, a face- to-face visit will be scheduled. 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 VIS VVC Support Group Instruction Provided: 13 Participants 1. VIS VVC Support Group The [place] participated along with other Veterans and VIS Staff in the VIS Support Group. The [place] and all other attendees participated via VV. Today's group discussed the following: I. General Updates (facility updates, upcoming events, community, VA, & facility program offerings and updates) II. Topic(s): Education and Information Provided in Addition to Strategies for Participation/Utilization on the following: Von Bonnet Syndrome META smart Glasses Assistive Technology Ordered: None Next Lesson Objective / Recommendations: 1. Next Group: a. Traditional VVC VIS Support Group will meet via VVC 6.13@10 provided the following conditions related to participation, confidentiality, privacy, risks and consequences, dignity, and behavior during VA Video Connect/Clinical Video Telehealth (CVT) or other virtual group visits. [place]'s verbal consent and acknowledgement of this participation [...] group treatment conducted over video telehealth. The NM has instituted procedures and policies to protect my privacy and confidentiality. The group heat treat worker will lock the virtual medical room to prevent unauthorized persons from entering the visit. Everything said and done in group is confidential. I will protect the confidentiality of all group members by not sharing their names or what is said and done in the group. If I violate this confidentiality, I will be removed from the group. The group heat treat worker may disclose confidential information without my consent where mandated or permitted by law (e.g., to protect me or others from harm). If a group member has a medical or mental health emergency, the group heat treat worker may disconnect others from the visit to [...] to the expectations outlined by the group heat treat worker. For video telehealth therapy groups, cameras will remain on during the entire group unless the group heat treat worker states otherwise. If I am asked questions or asked to participate in an activity that makes me feel uncomfortable, I can decline, and I will not pressure other group members to participate. If I or the group heat treat worker have concerns about my meeting group expectations [...] laws in the locations of the group heat treat worker and all group members. 4. Behavior I [...] doing so may result in the group heat treat worker disconnecting me from the session. If the group heat treat worker believes that I am impaired by alcohol or substances, using substances (including tobacco, etc.), or engaging in behavior that disrupts the group, I may be asked to leave and/or be disconnected from the group. The group heat treat worker will have a follow-up discussion with me to determine any necessary changes to my treatment plan. I have read the agreement for group visits and agree to follow it. The group heat treat worker will note in my medical record that I have received, read, and agreed to these expectations. *In developing this consent form, it was necessary to use several technical words; please ask for an explanation of any that you do not understand. /kayla/ BRYAN AGUILAR/AZAEL [employer] OCEANOLOGY TEACHER Signed: 08/09/2024 11:43 KEKE LENNON [place] [facility]
--- OUTSIDE RECORDS SUMMARY | 2024-08-13 11:35 | XMS_ITS ---
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 Name Role Phone TRESSA BOND Primary Care [...] PART B Jan 01, 2014 PART B [id number] PARISH KHAN PATIENT MEDICARE (WNR) MEDICARE (M) PART B Jan 01, 2014 PART B [id number] PARISH KHAN PATIENT MEDICARE (WNR) MEDICARE (M) PART A May 04, 2013 PART A [id number] PARISH KHAN PATIENT MEDICARE (WNR) MEDICARE (M) PART A May 04, 2013 PART A [id number] PARISH KHAN PATIENT [facility] (R) MEDICARE ADVANTAGE [facility] Apr 03, 2016 [facility] [id number] [phone] NEILAL,PARISH REAL PATIENT Selected Encounter This section includes the information on record at ID for the Encounter. Date/Time Encounter Type Encounter Description Reason Provider Source Jul 26, 2024 10:00 AM GROUP THERAPEUTIC PROCEDURES [facility]OS (BLIND REHAB O/P SPEC) ICD-10-CM H54.8 Legal blindness, as defined in [place] [facility] LENNON [facility] Encounter Template Text not used by ID Assessments - Encounter Diagnoses This section includes the primary and secondary diagnoses documented for the Encounter. Date/Time Primary/Secondary Diagnosis Diagnosis Name Provider Source Jul 26, 2024 12:04 PM PRIMARY Legal blindness, as defined in [place] CARINA LENNON [facility] Plan of Treatment: Future Appointments (+ 6 months) and Future Tests (+/- 45 days) The Plan of Treatment section includes future care activities for the [facility] This section includes future appointments and future orders which are active, pending or scheduled. Future Appointments This section includes appointments that were scheduled to occur 6 months from the date of the Encounter, up to a maximum of 20 appointments. The data comes from all [facility]. Appointment Date/Time Appointment Type Appointme nt Facility Name August 06, 2024 10:30 AM AMBULATORY - MEDICINE ID C [facility]TR [facility] [facility] August 06, 2024 11:00 AM [facility] - [facility] August 06, 2024 11:45 AM [facility] NONE [facility] August 29, 2024 11:00 AM [facility] Sep 25, 2024 10:00 AM [facility] Oct 02, 2024 10:30 AM [facility] Oct 16, 2024 10:00 AM [facility] Dec 25, 2024 11:00 AM AMBULATORY - MEDICINE [facility] Active, Pending, and Scheduled Orders This section includes a listing of several types of active, pending, and scheduled orders, including clinic medications orders, diagnostic test orders, procedure orders and consult orders; where the start date of the order is 45 days before the date of the Encounter or 45 days after the date of theEncounter. The data comes from all [facility]. Test Date/Time Test Type Test Details Facility Name Jun 26, 2024 12:04 PM Consult Order [facility]-GEN SURGERY Cons Residential Service Technician's [facility] Jul 08, 2024 04:41 PM Consult Order [facility]-NEPHROLOGY Cons Residential Service Technician'[facility] Lab Results: +/- 30 days of the encounter This section includes the Chemistry and Hematology Lab Results on record with ID for the patient. Radiology Reports and Pathology Reports are provided separately, in subsequent sections. Lab Results This section contains the Chemistry/Hematology Results that were resulted 30 days before or 30 daysafter the date of the Encounter. Date/Time Source Result Type Result - Unit Interpretation Reference Range Specimen Type Comment Jul 17, 2024 11:14 AM [facility] [place] [facility] FERRITIN SERUM Specimen Type: SERUM No comment entered. Ordering Provider: JAYDEN BOND Report Released Date/Time: Jul 04, 2024 10:36 AM Reporting [facility] [address] [address] Performing Lab: [facility] [place] [address] [address] FERRITIN 144.3 ng/mL 21.8-274.7 Jul 17, 2024 11:14 AM [facility] [place] [facility] CBC AND DIFF (AUTO) BLOOD Specimen Type: BLOO D No comment entered. Ordering Provider: TRESSA BOND Report Released Date/Time: Jul 04, 2024 10:36 AM Reporting Lab[facility] [address] [address] Performing Lab: [facility] [place] [address] [address] WBC 10.23 10*3/uL 4.50-11.00 RBC 3.66 10*6/uL [...] 10*3/uL 0.00-0.00 Jul 17, 2024 11:14 AM [facility] VITAMIN D (25-OH) SERUM Specimen Type : SERUM No comment entered. Ordering Provider: DARLIN BALDWIN Report Released Date/Time: May 21, 2024 08:43 AM Reporting Lab: [address] [address] Performing Lab: [address] [address] VITAMIN D (25-OH) 13.6 ng/mL L 20-50 Jul 17, 2024 11:14 AM [facility] MAGNESIUM SERUM Sp ecimen Type: SERUM No comment entered. Ordering Provider: DARLIN BALDWIN Report Released Date/Time: May 21, 2024 08:43 AM Reporting Lab: [address] [address] Performing Lab: [address] [address] MAGNESIUM 1.5 mg/dL L 1.6-2.6 Jul 17, 2024 11:14 AM [facility] IRON & TIBC PANEL SERUM Specimen Type : SERUM No comment entered. Ordering Provider: DARLIN BALDWIN Report Released Date/Time: May 21, 2024 08:43 AM Reporting Lab: [address] [address] Performing Lab: [address] [address] TIBC 268 ug/dL 204-475 IRON 76 ug/dL 65-175 Transferrin Saturation 28.4 15-45 Transferrin (TRF) 203 mg/dL 180-382 Jul 17, 2024 11:14 AM [facility] BASIC METABOLIC PANEL (fasting) SERUM Specimen Type: SERUM No comment entered. Ordering Provider: DARLIN BALDWIN Report Released Date/Time: May 21, 2024 08:43 AM Reporting Lab: [address] [address] Performing Lab: [address] [address] UREA NITROGEN 22 mg/dL 8-26 GLUCOSE 114 mg/dL H 65-100 SODIUM 132 mmol/L L 136-145 POTASSIUM 4.8 mmol/L 3.5-5.1 CHLORIDE 100 mmol/L 98-107 CO2 25 meq/L 23-31 CALCIUM 9.1 mg/dL 8.8-10 CREATININE, Serum 1.06 mg/dL 0.72-1.25 eGFR(CKD-EPI 2020) 73 mL/min >60 Jul 17, 2024 11:14 AM [facility] LIVER FUNCTION SERUM Specimen Type: SERUM No comment entered. Ordering Provider: DARLIN BALDWIN Report Released Date/Time: May 21, 2024 08:43 AM Reporting Lab: [address] [address] Performing Lab: [address] [address] PROTEIN,TOTAL 7.5 g/dL 6.4-8.3 ALBUMIN 3.4 g/dL 3.2-4.6 ALKALINE PHOSPHATASE 112 U/L 40-150 AST 30 U/L 5-34 ALT 15 U/L BILIRUBIN, TOTAL 0.3 mg/dL 0.2-1.2 Jul 17, 2024 11:14 AM [facility] HEMOGLOBIN A1C PANEL BLOOD Specimen T ype: [...] May 21, 2024 08:43 AM Reporting Lab: [facility] [place] [address] Performing [facility]: [facility] [address] [address] HEMOGLOBIN A1C 7.5 H 4.0-5.6 Jul 17, 2024 11:14 AM [facility] TSH SERUM Sp ecimen Type: SERUM No comment entered. Ordering Provider: DARLIN BALDWIN Report Released Date/Time: May 21, 2024 08:43 AM Reporting Lab: [facility] [place] [place] [address] Performing Lab: [facility] [place] [address] TSH 1.19 u[IU]/mL 0.35-4.94 Jul 17, 2024 11:14 AM [facility] LIPID PANEL FASTING SERUM Specimen Ty pe: SERUM No comment entered. Ordering Provider: DARLIN BALDWIN Report Released Date/Time: May 21, 2024 08:43 AM Reporting Lab: [facility] [address] [address] Performing Lab: [facility] WSTRN [facility] [address] CHOLESTEROL 157 mg/dL TRIGLYCERIDE 74 mg/dL 0-150 LDL calculated 73 mg/dL 0-129 CHOL/HDL 2.3 HDL CHOLESTEROL 69 mg/dL >40 Jul 17, 2024 11:14 AM [facility] PSA SERUM Sp ecimen Type: SERUM No comment entered. Ordering Provider: DARLIN BALDWIN Report Released Date/Time: May 21, 2024 08:43 AM Reporting Lab: [facility] [place] [address] Performing Lab: [facility] [address] [facility] [address] PSA 1.0 ng/mL 0.0-4.0 Social History: Smoking Status (Most current) and Tobacco Use (All prior to encounter date) This section includes the most current, and the historical, smoking and tobacco- related health factors from the ID facility where the Encounter took place. Current Smoking Status This section includes the most current smoking, or tobacco-related health factor, from the ID facility where the Encounter took place. Date/Time Current Smoking Status Comment Facil ity Jan 29, 2024 10:34 AM VA-TOBACCO NEVER USED [facility] Tobacco Use History This section includes a history of the smoking, or tobacco-related health factors, that were collected on or before the date of the Encounter. The data comes from the ID facility where the Encounter took place. Date/Time Smoking Status/Tobacco Use Comment F acility Dec 19, 2019 12:00 PM VA-TOBACCO FOR[facility]ER [facility] Dec 19, 2019 12:00 PM VA-TOBACCO QUIT 1 TO < 5 YRS [facility] Advance Directives: All historical and current Section Date Range: From patient's date of to the date document was created. This section includes ALL of a patient's completed or amended ID Advance and Rescinded Directives. The entries below indicate that a directive exists for the patient, but an actual copy is not included with this document. The data comes from all ID facilities. Date Advance Directives Provider Source Mar 29, 2021 ADVANCE DIRECTIVE [facility] Radiology Reports: +/- 30 days of the [...] the Encounter. The data comes from all ID treatment facilities. Date/Time Radiology Report Provider Source August 06, 2024 10:50 AM CHEST (2 VIEWS): RICO KHAN [id number] -1950 M Exm Date: AUGUST 06, 2024@10:50 Req Phys: VARUNDAVIDJASPER Laine Pat Loc: ZZCWM/NO/BLIND REHAB TELE (Req Img Loc: [facility]/BUILDING 1 Service: Unknown [facility] [place] [address] (Case [id number] COMPLETE) CHEST (2 VIEWS) (RAD Detailed) CPT:00397 Reason for Study: Recent pneumonia Clinical History: IDDM, Report Status: Verified Date Reported: AUGUST 06, 2024 Date Verified: AUGUST 06, 2024 Senior Mechanical Designer E-Sig:/ES/BETTY BURT JR Report: Study: PA and [...] Primary Interpreting Staff: BETTY BURT JR, Radiologist (Senior Mechanical Designer) /BETTY LEIVA JR [facility] Encounter Notes: All associated encounter notes This section contains the clinical notes associated to the Encounter. Date/Time Encounter Note(s) Provider Source Jul 26, 2024 10:00 AM VIST NOTE: LOCAL TITLE: VIS SUPPORT GROUP STANDARD TITLE: VIST NOTE DATE OF NOTE: JUL 26, 2024@10:00 ENTRY DATE: JUL 26, 2024@11:50:12 AUTHOR: RITESH LENNON EXP COSIGNER: URGENCY: STATUS: COMPLETED Technology Support Group Note Appointment Information: () Clinic Visit () Home Visit () Telephone Contact (x) VVC Support Group VV Clinician Resources Only: E911 (Emergency Call Relay Center): [phone] Local emergency response numbers can be found at http://www.Mandelbrot Project. National Veterans Crisis Line - , press #1. CWLaine Suicide Coordinator [phone], Ext. [phone]; Back-up Ext. [phone] Emergency Plan: confirmed they were at their home location and address/telephone numbers in chart were correct. reported that location is private and safe: Yes Informed Consent: informed of the risks and benefits of Telehealth video care. Jackson has the right to refuse video services. If refuses video visit, a aeec-wr-ymga visit will be scheduled. Jackson verbalized consent for this video visit: Yes provided consent for any other persons present for visit: Yes Yes If yes, who and relationship to patient: VIS team staff and other Veterans/spouses Secure visit: Visit was locked for security and privacy: Yes Duration of appointment: 1 hr. Start Time: 10:00AM End Time: 11:00AM Verified two identifications: (x) Full name () Full Social Security Number () Date of (x) Address () VA ID Card () Other, specify: agreed to participate in VIS VVC Technology Support Group with fellow Veterans. Ocular Diagnosis: (x) Legal blindness, as defined in [place] (ICD-10-CM H54.8) () Low Vision, Both Eyes (ICD-10-CM H54.2) () Unqualified visual loss, both eyes (ICD-10-CM H54.3) () Additional: Procedure Codes: (1 times) 09115 Theraputic procedure(s), Group (2 or more individuals, 1 unit CPT code per patient) Chief Complaint(s): 1. VIS VVC Technology Support Group Instruction Provided: The participated along with 6 other Veterans in the Technology Support Group. The and all other attendees participated via [facility]. The utilized their assistive technology devices as appropriate during the group. Today's group discussed the followin. Monthly Lesson/Review Training: a. VIS Program Update i. Continued construction at [facility] 1. Expect traffic route changes when reporting for appointments b. General Tech Topic i. Use of Immersive Aimwell and Read Aloud in Windows a. Immersive Aimwell i. Immersive Aimwell is a feature of [employer] to streamline a webpage article to help with reading ii. Keyboard shortcut is F9 b. Read Aloud i. Reads the on-screen text aloud ii. Retinal therapy may restore lost vision https://www.Vtap. com/releases//2504 27595116.htm milena ANGEL announced on the 30 of June that a research team from the Department of Biological Sciences has developed a treatment method that restores vision through retinal nerve regeneration. iii. 2.0 https://[email or web address] Brain.com/accounts/MDLIBRARY /bulletins/9nvem2t milena MATTHEWS for the [place] is being updated iv. Dexcom G7 15-day CGM https://www.Dextrys.RenéSim/heal th/medical/vpq-qsu-jiar- uqkupcy-rrz-dwxici-g7-15- koh-fpw-vzfsfgx-lasting-c gm/ a. The [place] Food and Drug Administration has cleared the Dexcom G7 15-Day Continuous Glucose Monitor (CGM) for people older than 18 with diabetes. It's the longest-lasting wearable on the market. b. According to Dexcom, it's also the most accurate system. The G7 15-day sensor has an overall mean absolute relative difference, or MARD, of 8.0%. MARD measures how often the readings from the CGM sensor differ from a blood glucose test. The Dexcom G7 sensor has a MARD score of 8.2%. The sensor sends real-time glucose readings to the DexRenéSim G7 bozena every five minutes. c. CoupOption/Downstream and other related topics/information i. SmartDocs (Teknowmics) Updates 1. SmartDocs (Teknowmics) 18.4.1 is latest marker.toS and SocialOptimizr Update. Veterans reminded to backup device prior to update. d. Online learning opportunities and Podcasts: i. [employer] For the [employer] 1. Tech It Out-Happens Monday of every month. Learn a few tips about everyday technology from a technology expert, ask your questions, and share your experiences. a. Monday, August 28 Tech It Out 2 PM E [employer] b. All discussion groups use the following phone number: (ZV) . Once dialed, you will be prompted to enter in the unique meeting ID. Please note: your phone carrier May charge per minute or add long-distance charges for this call. To find more local phone numbers for your location go to Zoom Dial-In Numbers. To join a discussion group live or listen to the archives, first sign up for a free login at [email or web address] or call [phone] to register free by phone, or to get the meeting I.D. 2. [employer].org https://[employer].org/ a. [facility] website has training seminars on lots of topics worth exploring. 2. Round table discussion prompted by presented technology questions on a variety of topics. Prosthetics Ordered: 1. None Next Lesson Objective / Recommendations: 1. Next Group: a. VIS AkitaC Technology Support Group usually meets the last Monday of each month. The next scheduled meeting is Monday08/23/2024 at 10:00AM to 12:00AM to be held via AdAdapted. b. The next scheduled meeting for the GrokkerT VVC Support Group meets Monday08/09/2024 at 10:00AM to 12:00AM to be held via [employer]. Comments: None How does the patient/client best learn? (x) Observation (x) Repetition (x) Large Print Directions () Standard Print Directions (x) Audible Directions Does the patient/client have any cultural and samaritan beliefs, emotional barriers, physical or cognitive limitations, and communication barriers which may impact his/her ability to learn? (x) Legally blind () Other: functional vision loss Desire and motivation to learn? (x) Excellent () Moderate () Low Patient Education Education provided on the following topics: see above Education provided to: P Response to Education: VU, RD, PI [place] Patient P Family F Significant Other SO Verbalizes Understanding VU Returns Demonstration RD Performs Independently PI Lacks Comprehension LC Refused Education RE Not Applicable NA /kayla/ RITESH LENNON Blind Rehabilitation Outpatient Specialist Signed: 07/26/2024 12:05 RITESH LENNON ID CNTRL WSTRN [facility]
--- OUTSIDE RECORDS SUMMARY | 2024-08-13 11:35 | XMS_ITS | Encounter Summary ---
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 Name Role Phone MATI BOND Primary Care Provider Unavail able Insurance [...] Name Patient's Relationship to Policy Velez MEDICARE ([facility]) MEDICARE (M) PART B Jan 01, 2014 PART B [id number] PARISH KHAN PATIENT MEDICARE (WNR) MEDICARE (M) PART B Jan 01, 2014 PART B [id number] PARIHS KHAN PATIENT MEDICARE (WNR) MEDICARE (M) PART A May 04, 2013 PART A [id number] PARISH KHAN PATIENT MEDICARE (WNR) MEDICARE (M) PART A May 04, 2013 PART A [id number] PARSIH KHAN PATIENT [facility] (R) MEDICARE ADVANTAGE [facility] ([facility]) Apr 03, 2016 [facility] ([facility]) [id number] [phone] PARISH KHAN PATIENT Selected Encounter This section includes the information on record at OR for the Encounter. Date/Time Encounter Type Encounter Description Reason Pro vider Source Jul 19, 2024 03:33 PM Outpatient Encounter ADMIN PAT ACTIVTIES ([facility]ASNON[facility]) IHE Encounter Template Text not used by OR Plan of Treatment: Future Appointments (+ 6 months) and Future Tests (+/- 45 days) The Plan of Treatment section includes future care activities for the patient [facility]. This section includes future appointments and future [...] 06, 2024 10:30 AM AMBULATORY - MEDICINE [facility] August 06, 2024 11:00 AM [facility]BULATORY - MEDICINE [facility] August 06, 2024 11:45 AM [facility] August 29, 2024 11:00 AM AMBULAT[facility] - REHAB [facility]ICIN E [facility] Sep 25, 2024 10:00 AM [facility] Oct 02, 2024 10:30 AM [facility] Oct 16, 2024 10:00 AM [facility] Dec 25, 2024 11:00 AM AMBULATORY - MEDICINE [facility] Active, Pending, and Scheduled Orders This section includes a listing of several types of active, pending, and scheduled orders, including clinic medications orders, diagnostic test orders, procedure orders and consult orders; where the start date of the order is 45 days before the date of the Encounter or 45 days after the date of theEncounter. The data comes from all [place] treatment [facility]. Test Date/Time Test Type Test Details Facility Name Jun 26, 2024 12:04 PM Consult Order [facility]-GEN SURGERY [facility] Jul 08, 2024 04:41 PM Consult Order [facility]-NEPHROLOGY [facility] Lab Results: +/- 30 days of the [...] Type Comment Jul 17, 2024 11:14 AM [facility] FERRITIN SERUM Specimen Type: SERUM No comment entered. Ordering Provider: JAYDEN BOND Report Released Date/Time: Jul 04, 2024 10:36 AM Reporting Lab: [facility] [address] [facility] [address] Performing Lab: [address] [address] FERRITIN 144.3 ng/mL 21.8-274.7 Jul 17, 2024 11:14 AM [facility] CBC AND DIFF (AUTO) BLOOD Specimen Type: BLOO D No comment entered. Ordering Provider: MATI BOND Report Released Date/Time: Jul 04, 2024 10:36 AM Reporting Lab: [facility] [address] [facility] [address] Performing Lab: [address] [address] WBC 10.23 10*3/uL 4.50-11.00 RBC 3.66 10*6/uL [...] 10*3/uL 0.00-0.00 Jul 17, 2024 11:14 AM [facility] MAGNESIUM SERUM Sp ecimen Type: SERUM No comment entered. Ordering Provider: DARLIN BALDWIN Report Released Date/Time: May 21, 2024 08:43 AM Reporting Lab: [address] [address] Performing Lab: [address] [address] MAGNESIUM 1.5 mg/dL L 1.6-2.6 Jul 17, 2024 11:14 AM [facility] VITAMIN D (25-OH) SERUM Specimen Type : SERUM No comment entered. Ordering Provider: DARLIN BALDWIN Report Released Date/Time: May 21, 2024 08:43 AM Reporting Lab: [address] [address] Performing Lab: [address] [address] VITAMIN D (25-OH) 13.6 ng/mL L 20-50 Jul 17, 2024 11:14 AM [facility] IRON & TIBC PANEL SERUM Specimen Type : SERUM No comment entered. Ordering Provider: DARLIN BALDWIN Report Released Date/Time: May 21, 2024 08:43 AM Reporting Lab: [address] [address] Performing Lab: [address] [address] TIBC 268 ug/dL 204-475 IRON 76 ug/dL 65-175 Transferrin Saturation 28.4 15-45 Transferrin (TRF) 203 mg/dL 180-382 Jul 17, 2024 11:14 AM [facility] HEMOGLOBIN A1C PANEL BLOOD Specimen T ype: [...] May 21, 2024 08:43 AM Reporting Lab: [address] [address] Performing Lab: [address] [address] HEMOGLOBIN A1C 7.5 H 4.0-5.6 Jul 17, 2024 11:14 AM [facility] TSH SERUM Sp ecimen Type: SERUM No comment entered. Ordering Provider: DARLIN BALDWIN Report Released Date/Time: May 21, 2024 08:43 AM Reporting [facility]: [facility] [address] [address] Performing Lab: [address] [address] TSH 1.19 u[IU]/mL 0.35-4.94 Jul 17, 2024 11:14 AM [facility] BASIC METABOLIC PANEL (fasting) SERUM Specimen Type: SERUM No comment entered. Ordering Provider: DARLIN BALDWIN Report Released Date/Time: May 21, 2024 08:43 AM Reporting Lab: [address] [address] Performing Lab: [address] [address] UREA NITROGEN 22 mg/dL 8-26 GLUCOSE 114 mg/dL H 65-100 SODIUM 132 mmol/L L 136-145 POTASSIUM 4.8 mmol/L 3.5-5.1 CHLORIDE 100 mmol/L 98-107 CO2 25 meq/L 23-31 CALCIUM 9.1 mg/dL 8.8-10 CREATININE, Serum 1.06 mg/dL 0.72-1.25 eGFR(CKD-EPI 2020) 73 mL/min >60 Jul 17, 2024 11:14 AM [facility] LIPID PANEL FASTING SERUM Specimen Ty pe: SERUM No comment entered. Ordering Provider: DARLIN BALDWIN Report Released Date/Time: May 21, 2024 08:43 AM Reporting Lab: [facility] [address] Performing Lab: [facility] [address] CHOLESTEROL 157 mg/dL TRIGLYCERIDE 74 mg/dL 0-150 LDL calculated 73 mg/dL 0-129 CHOL/HDL 2.3 HDL CHOLESTEROL 69 mg/dL >40 Jul 17, 2024 11:14 AM [facility] PSA SERUM Sp ecimen Type: SERUM No comment entered. Ordering Provider: DARLIN BALDWIN Report Released Date/Time: May 21, 2024 08:43 AM Reporting Lab: [facility] [address] Performing Lab: [facility] [address] PSA 1.0 ng/mL 0.0-4.0 Jul 17, 2024 11:14 AM [facility] LIVER FUNCTION SERUM Specimen Type: SERUM No comment entered. Ordering Provider: DARLIN BALDWIN Report Released Date/Time: May 21, 2024 08:43 AM Reporting Lab: [facility] [address] Performing [facility]: [facility] [address] PROTEIN,TOTAL 7.5 g/dL 6.4-8.3 ALBUMIN 3.4 g/dL 3.2-4.6 ALKALINE PHOSPHATASE 112 U/L 40-150 AST 30 U/L 5-34 ALT 15 U/L BILIRUBIN, TOTAL 0.3 mg/dL 0.2-1.2 Social History: Smoking Status (Most current) and [...] 29, 2024 10:34 AM VA-TOBACCO NEVER USED [facility] Tobacco Use History This section includes a history of the smoking, or tobacco-related health factors, that were collected on or before the date of the Encounter. The data comes from the OR facility where the Encounter took place. Date/Time Smoking Status/Tobacco Use Comment F acility Dec 19, 2019 12:00 PM VA-TOBACCO FORMER USER [facility] Dec 19, 2019 12:00 PM OR-TOBACCO QUIT 1 TO < 5 YRS [facility] Advance Directives: All historical and current Section Date Range: From patient's date of to the date document was created. This section includes ALL of a patient's completed or amended OR Advance and Rescinded Directives. The entries below indicate that a directive exists for the patient, but an actual copy is not included with this document. The data comes from all OR facilities. Date Advance Directives Provider Source Mar 29, 2021 ADVANCE DIRECTIVE [facility] Radiology Reports: +/- 30 days of [...] 10:50 AM CHEST (2 VIEWS): RICO KHAN [id number] -1950 M Exm Date: AUGUST 06, 2024@10:50 Req Phys: MATI BOND Loc: [facility]/NO/BLIND REHAB TELE ([facility] Service: Unknown [facility] [place] [id number] (Case [id number] COMPLETE) CHEST (2 VIEWS) (RAD Detailed) CPT:97825 Reason for Study: Recent pneumonia Clinical History: IDDM, Report Status: Verified Date Reported: AUGUST 06, 2024 Date Verified: AUGUST 06, 2024 Identification Technician E-Sig:/[email or web address]/BETTY BURT JR Report: Study: PA and lateral [...] Primary Interpreting Staff: BETTY BURT JR, Radiologist (Identification Technician) /BETTY LEIVA JR [facility] Encounter Notes: All associated encounter notes This section contains the clinical notes associated to the Encounter. Date/Time Encounter Note(s) Provider Source Jul 19, 2024 03:34 PM PHARMACY NOTE: LOCAL TITLE: PHARMACY CUSTOMER CARE MEDICATION RENEWAL STANDARD TITLE: PHARMACY NOTE DATE OF NOTE: JUL 19, 2024@15:34 ENTRY DATE: JUL 19, 2024@15:34:03 AUTHOR: RUBEN ALBERTO COSIGNER: URGENCY: STATUS: COMPLETED Date: Jul Division: [facility] referred by Pharmacy Call Center for medication renewal: Medications requested: [id number] AMLODIPINE BESYLATE 5MG TAB To be mailed . Please review and renew if appropriate. *This note was generated by [facility]/[place] [facility] Customer Care. If you have any questions or need assistance, do not contact this author. Please refer all questions to your local, on-site pharmacy departments. /jessica ALBERTO CPhT [employer], [place]/Pharmacy Customer Care Signed: 07/19/2024 15:34 Receipt Acknowledged By: 07/24/2024 14:00 /kayla/ Mati Bond MD MD PRIMARY CARE PHYSICIAN RUBEN AL[facility]ERTO [facility]
--- OUTSIDE RECORDS SUMMARY | 2024-08-13 11:35 | XMS_ITS | Continuity of Care Document ---
Author Name [facility] Organization [facility] Care Team Providers Care Curriculum Designer Name Role Phone [facility] Unavailable Unavailable Problems Combined list of problems from Department of Defense and Veterans Affairs facilities. It does not include entries that were removed or entered in error. Problem Status Onset Date Problem Type Date of Resolution Comments Source Age-related nuclear cataracts of both eyes Active Condition Apr 17, 2024 Entered By: DARLIN BALDWIN Comment: Per [facility] note Dr Rubens Robbins [facility] Chronic kidney disease stage 3 due to type 2 diabetes mellitus Active Condition Apr 17 Entered By: DARLIN BALDWIN Comment: 04/15/24 GFR 43 [facility] Depressive disorder Active Condition [facility] Diabetes mellitus type 2 Active Condition Apr 17, 2024 Entered By: DARLIN BALDWIN Comment: 04/15/24 A1c 8.6 [facility] Diabetic peripheral neuropathy Active Condition Apr 17, 2024 Entered By: DARLIN BALDWIN Comment: mild, intermittent [facility] Essential hypertension Active Condition [facility] Essential tremor Active Condition [facility] Exposure to potentially hazardous substance ([facility] [id number]) Active Condition Jul 11 Entered By: JOYCE [...] Gastroesophageal reflux disease with esophagitis Active Condition [facility] History of surgery Active Condition J an 2024 Entered By: DARLIN BALDWIN Comment: left thumb ligament tear repair 1999 [facility] [place] - Iron deficiency anemia Active Condition [...] 2024 Entered By: DARLIN BALDWIN Comment: Agent Steele [facility] Myopic macular degeneration Active Condition [facility] Nonproliferative diabetic retinopathy Active Condition [facility] Osteoarthritis of right knee joint [facility] for malignant neoplasm of colon done Active Condition Apr 17, 2024 Entered By: DARLIN BALDWIN Comment: colo about 2008; normal; Apr 05, 2021 Entered By: LUDA OLEARY Comment: 01-23-20[place] [facility] [place] tubular adenoma no dysplagia, no return [facility] Food insecurity Inactive Condition 05/21/2024 [facility] Onychomycosis of toenails Inactive Condition 04/17/2024 [facility] Diagnosis: ICD-10-CM H54.8 Legal blindness, as defined in [place] Active Diagnosis [facility] Diagnosis: ICD-10-CM E11.9 Type 2 diabetes mellitus without complications Active Diagnosis [facility] Diagnosis: ICD-10-CM E11.22 Type 2 diabetes mellitus w diabetic chronic kidney disease Active Diagnosis [facility] Diagnosis: ICD-10-CM L60.3 Nail dystrophy [facility] Diagnosis: ICD-10-CM D50.9 Iron deficiency anemia, unspecified Active Diagnosis [facility] Diagnosis: ICD-10-CM Z46.0 Encounter for fit/adjst of spectacles and contact lenses Active Diagnosis [facility] Diagnosis: ICD-10-CM G25.0 Essential tremor Active Diagnosis [facility] Diagnosis: ICD-10-CM E11.3299 Type 2 diab with mild nonp rtnop without macular edema, unsp Active Diagnosis [facility] Diagnosis: ICD-10-CM N18.9 Chronic kidney disease, unspecified Active Diagnosis [facility] Diagnosis: ICD-10-CM Z46.1 Encounter for fitting and adjustment of hearing aid Active Diagnosis [facility] Diagnosis: ICD-10-CM H90.3 Sensorineural hearing loss, bilateral [facility] Diagnosis: ICD-10-CM I10 Essential (primary) hypertension Active Diagnosis [facility] Diagnosis: ICD-10-CM E11.40 Type 2 diabetes mellitus with diabetic neuropathy, unsp Active Diagnosis [facility] [place] Diagnosis: ICD-10-CM M25.561 Pain in right knee Active Diagnosis [facility] Medications Combined list of outpatient medications from [...] 2 DIABETES MELLITUS ORAL DISCONT INUED 05/06/2024 [id number] CHASITYAL ICE 2023 90 [facility] AMLODIPINE BESYLATE 5MG TAB TAKE ONE TABLET BY MOUTH ONCE DAILY FOR BLOOD PRESSURE /HEART, DO NOT TAKE WITH GRAPEFRU IT JUICE ORAL ACTIVE 07/25/2025 [id number] 5 TRESSA BOND 2024 60 [facility] [place] AMLODIPINE BESYLATE 5MG TAB TAKE ONE TABLET BY MOUTH ONCE DAILY FOR BLOOD PRESSURE /HEART, DO NOT TAKE WITH GRAPEFRU IT JUICE ORAL DISCONT INUED 01/29/2025 [id number] 5 MARIELLE AGUILA F 2023 60 [facility] AMLODIPINE BESYLATE 5MG TAB TAKE ONE TABLET BY MOUTH ONCE DAILY FOR BLOOD PRESSURE /HEART, DO NOT TAKE WITH GRAPEFRU IT JUICE ORAL DISCONT INUED 05/06/2024 [id number] 4 GASPAR,AL ICE 2023 90 [facility] ATORVASTATI N CA 80MG TAB TAKE ONE TABLET BY MOUTH DAY FOR CHOLESTE ROL ORAL ACTIVE 09/01/2024 [id number] 5 GASPAR,AL ICE 2023 90 [facility] ATORVASTATI N CA 80MG TAB TAKE ONE TABLET BY MOUTH DAY FOR CHOLESTE ROL ORAL DISCONT INUED 05/19/2024 [id number] 4 GASPAR,AL ICE 2023 90 [facility] AZITHROMYCI N 250MG TAB TAKE TWO TABLETS BY MOUTH EVERY 24 HOURS ORAL 07/21/2024 [id number] 5 CHELO VERONICA HCHAIN 2024 6 [place] AZITHROMYCI N 500MG TAB TAKE ONE TABLET BY MOUTH EVERY 24 HOURS ORAL DISCONT INUED (EDIT) 07/20/2024 [id number] 5 CHELO VERONICA HCHAIN 2024 3 [place] CEFUROXIME AXETIL 500MG TAB TAKE ONE TABLET BY MOUTH EVERY 12 HOURS ORAL 07/20/2024 [id number] 5 CHELO VERONICA HCHAIN 2024 14 [place] DULOXETINE HCL 20MG CAP,EC TAKE ONE CAPSULE BY MOUTH ONCE DAILY FOR NERVE PAIN ORAL DISCONT INUED BY PROVIDE R 09/01/2024 [id number] 4 GASPAR,AL ICE 2023 90 [facility] DULOXETINE HCL 20MG CAP,EC TAKE ONE CAPSULE BY MOUTH ONCE DAILY FOR NERVE PAIN ORAL DISCONT INUED 05/23/2024 [id number] 4 GASPAR,AL ICE 2023 90 [facility] EMPAGLIFLOZ IN 25MG TAB TAKE ONE TABLET BY MOUTH ONCE DAILY FOR TYPE 2 DIABETES MELLITUS ORAL ACTIVE 09/01/2024 [id number] 5 GASPAR,AL ICE 2023 90 [facility] EZETIMIBE 10MG TAB TAKE ONE TABLET BY MOUTH ONCE DAILY TO LOWER CHOLESTE ROL ORAL ACTIVE 04/18/2025 [id number] 5 Gage BALDWIN 2024 90 [facility] EZETIMIBE 10MG TAB TAKE ONE TABLET BY MOUTH ONCE DAILY TO LOWER CHOLESTE ROL ORAL DISCONT INUED 09/01/2024 [id number] 4 GASPAR,AL ICE 2023 90 [facility] [place] EZETIMIBE 10MG TAB TAKE ONE TABLET BY MOUTH ONCE DAILY TO LOWER CHOLESTE ROL ORAL DISCONT INUED 05/19/2024 [id number] 4 GASPAR,AL ICE 2023 90 [facility] FERROUS SO4 325MG TAB TAKE ONE TABLET BY MOUTH ONCE DAILY TO SUPPLEME NT IRON ORAL ACTIVE 02/02/2025 [id number] 5 Gage BALDWIN 2023 100 [facility] FERROUS SO4 325MG TAB TAKE ONE TABLET BY MOUTH ONCE DAILY TO SUPPLEME NT IRON ORAL DISCONT INUED 12/08/2023 [id number] 4 GONSALO ESPINOZA 2022 100 [facility] FLUTICASONE PROPIONATE 50MCG/SPRAY SOLN,NASAL, 16GM INSTILL 1 SPRAY TOPICALL Y EVERY 10 DAYS TO PREVENT IRRITATI ON FROM SENSOR TOPICA L ACTIVE 09/01/2024 [id number] 4 GASPAR,AL ICE 2023 1 [facility] GABAPENTIN 300MG CAP TAKE ONE CAPSULE BY MOUTH THREE TIMES A DAY FOR NERVE PAIN CHANGE FROM TABLETS ORAL ACTIVE 09/01/2024 [id number] 5 GASPAR,AL ICE 2023 270 [facility] GABAPENTIN 300MG CAP TAKE ONE CAPSULE BY MOUTH THREE TIMES A DAY FOR NERVE PAIN CHANGE FROM TABLETS ORAL DISCONT INUED 05/23/2024 [id number] 4 GASPAR,AL ICE 2023 270 [facility] GLUCOSE 4GM TAB,CHEW CHEW FOUR TABLETS BY MOUTH ONE TIME NEEDED FOR LOW BLOOD SUGAR ORAL ACTIVE 09/01/2024 [id number] 4 GASPAR,AL ICE 2023 30 [facility] GLUCOSE 4GM TAB,CHEW CHEW FOUR TABLETS BY MOUTH ONE TIME NEEDED FOR LOW BLOOD SUGAR ORAL DISCONT INUED 05/19/2024 [id number] 4 GASPAR,AL ICE 2023 30 [facility] INSULIN,ASP ART,HUMAN (EQV-NOVOLO G) 100 UNIT/ML,FLE XPEN,3ML INJECT 4 UNITS SUBCUTAN EOUSLY EVERY MORNING AND INJECT 3 UNITS EVERY EVENING BEFORE SUPPER FOR DIABETES SUBCUT ANEOUS DISCONT INUED BY PROVIDE R 09/01/2024 [id number] 4 GASPAR,AL ICE 2023 5 [facility] INSULIN,ASP ART,HUMAN (EQV-NOVOLO G) 100 UNIT/ML,FLE XPEN,3ML INJECT 3 UNITS SUBCUTAN EOUSLY EVERY MORNING AND INJECT 2 UNITS EVERY EVENING BEFORE SUPPER SUBCUT ANEOUS DISCONT INUED (EDIT) 05/19/2024 [id number] 4 GASPAR,AL ICE 2023 5 [facility] INSULIN,GLA RGINE,HUMAN 100 UNIT/ML INJ,SOLOSTA R,3ML INJECT 8 UNITS SUBCUTAN EOUSLY ONCE DAILY FOR DIABETES SUBCUT ANEOUS ACTIVE 07/10/2025 [id number] 5 SCHUYLER HARRIS 2024 5 [place] INSULIN,GLA RGINE-YFGN 100UNIT/ML INJ PEN,3ML INJECT 6 UNITS SUBCUTAN EOUSLY ONCE DAILY FOR DIABETES SUBCUT ANEOUS DISCONT INUED BY PROVIDE R 12/05/2024 [id number] 4 SCHUYLER HARRIS 2023 5 [place] INSULIN,GLA RGINE-YFGN 100UNIT/ML INJ PEN,3ML INJECT 3 UNITS SUBCUTAN EOUSLY ONCE DAILY FOR DIABETES SUBCUT ANEOUS DISCONT INUED (EDIT) 09/01/2024 [id number] 4 GASPAR,AL ICE 2023 5 [facility] INSULIN,GLA RGINE-YFGN 100UNIT/ML INJ PEN,3ML INJECT 3 UNITS SUBCUTAN EOUSLY ONCE DAILY FOR DIABETES SUBCUT ANEOUS DISCONT INUED 05/19/2024 [id number] 4 GASPAR,AL ICE 2023 5 [facility] LISINOPRIL 10MG TAB TAKE ONE TABLET BY MOUTH ONCE DAILY TO CONTROL BLOOD PRESSURE ORAL ACTIVE 06/27/2025 [id number] 5 TRESSA BOND 2024 90 [place] LISINOPRIL 20MG TAB TAKE ONE TABLET BY MOUTH ONCE DAILY TO CONTROL BLOOD PRESSURE ORAL DISCONT INUED (EDIT) 09/01/2024 [id number] 5 GASPAR,AL ICE 2023 90 [facility] LISINOPRIL 20MG TAB TAKE ONE TABLET BY MOUTH ONCE DAILY TO CONTROL BLOOD PRESSURE ORAL DISCONT INUED 05/19/2024 [id number] 4 GASPAR,AL ICE 2023 90 [facility] MAGNESIUM OXIDE 250MG TAB TAKE ONE TABLET BY MOUTH ONCE DAILY ORAL DISCONT INUED (EDIT) 10/02/2024 [id number] 4 MARIELLE AGUILA F 2023 90 [place] MAGNESIUM OXIDE 250MG TAB TAKE ONE TABLET BY MOUTH ONCE DAILY ORAL DISCONT INUED 05/19/2024 [id number] 4 GASPAR,AL ICE 2023 90 [facility] MAGNESIUM OXIDE 400MG TAB TAKE ONE TABLET BY MOUTH TWICE DAILY ORAL ACTIVE 06/27/2025 [id number] TRESSA BOND 2024 180 [place] MAGNESIUM OXIDE 400MG TAB TAKE ONE TABLET BY MOUTH TWICE DAILY ORAL DISCONT INUED 07/20/2024 [id number] 5 CHELO VERONICA HCHAIN 2024 14 [facility] IELD METFORMIN HCL 500MG TAB TAKE ONE TABLET BY MOUTH TWICE DAILY ORAL DISCONT INUED BY PROVIDE R 05/19/2024 [id number] 4 GASPAR,AL ICE 2023 180 [facility] OMEPRAZOLE 20MG CAP,EC TAKE ONE CAPSULE BY MOUTH EVERY MORNING 30 MINUTES BEFORE BREAKFAS T ORAL ACTIVE 04/18/2025 [id number] 5 Gage BALDWIN 2024 90 [place] OMEPRAZOLE 20MG CAP,EC TAKE ONE CAPSULE BY MOUTH EVERY MORNING 30 MINUTES BEFORE BREAKFAS T ORAL DISCONT INUED 02/14/2025 [id number] 4 SCHUYLER HARRIS 2023 90 [facility]ELD OMEPRAZOLE 20MG CAP,EC TAKE ONE CAPSULE BY MOUTH EVERY MORNING 30 MINUTES BEFORE BREAKFAS T ORAL DISCONT INUED 05/17/2024 [id number] 4 MARIELLE AGUILA F 2023 90 [place] PRIMIDONE 50MG TAB TAKE ONE TABLET BY MOUTH AT BEDTIME TREMOR ORAL ACTIVE 04/06/2025 [id number] 5 Gage BALDWIN 2024 90 [place] PRIMIDONE 50MG TAB TAKE ONE TABLET BY MOUTH AT BEDTIME TREMOR ORAL DISCONT INUED 03/10/2024 [id number] SUKUMAR CAR 2022 [facility] SITAGLIPTIN (EQV-ZITUVI O) 100MG TAB TAKE ONE TABLET BY MOUTH ONCE DAILY DIABETES ORAL ACTIVE 03/20/2025 [id number] 5 GASPAR,AL ICE [address] [place] TAMSULOSIN HCL 0.4MG CAP TAKE ONE CAPSULE BY MOUTH AT BEDTIME ORAL ACTIVE 08/19/2024 [id number] CHELO VERONICA HCHAIN 2024 60 [place] Immunizations Combined list of available immunizations from the Department of Defense and Veterans Affairs facilities. Immunization Series Date Given Administered By Site Reaction Lot Number CVX Code Drug Scout Leaser Status Comments Source INFLUENZA, HIGH-DOSE, TRIVALENT, PF 2023 SARA DOMINGUEZ RIGHT DELTO ID [id number] 135 complet ed [facility] [place] INFLUENZA, HIGH-DOSE, QUADRIVALENT 2022 LALA STRONG RIGHT DELTO ID [id number] 197 complet ed [facility] [place] INFLUENZA, INJECTABLE, QUADRIVALENT, PRESERVATIVE FREE 2021 150 complet ed [place] ZOSTER RECOMBINANT 2 2020 187 complet ed [place] COVID-19 (MODERNA), MRNA, LNP-S, PF, 100 MCG OR 50 MCG DOSE 3 2020 207 complet ed MOD; [id number]; 2 [place] INFLUENZA VACCINE, QUADRIVALENT, ADJUVANTED 2020 205 complet ed [place] COVID-19 (MODERNA), MRNA, LNP-S, PF, 100 MCG OR 50 MCG DOSE 2 2020 207 complet ed [facility] INFLUENZA, INJECTABLE, QUADRIVALENT, PRESERVATIVE FREE 2019 150 complet ed [facility] ZOSTER RECOMBINANT 1 2019 187 complet ed [facility] INFLUENZA, INJECTABLE, QUADRIVALENT, [...] (HISTORICAL) 2013 88 complet ed [place] [facility] Results Combined list of recent chemistry, hematology and other laboratory results from Department of Defense and Veterans Affairs, ranging from 15 months to all on record, depending upon the facility. Order Name Results Value Reference Range Date Interpretation Specimen Comments Source FERRITIN FERRITIN [MASS/VOLUM E] IN SERUM OR PLASMA BY IMMUNOASSAY 144.3 ng/mL 21.8 - 274.7 07/17 Specimen Type: SERUM No comment entered. Ordering Provider: LOUIE BOND Report Released Date/Time: Jul 04, 2024 10:36 AM Reporting Lab: [facility] [place] [address] [address] Performing Lab: [facility] [place] [address] [address] [facility] [place] [facility] CBC AND DIFF (AUTO) LEUKOCYTES [#/VOLUME] IN BLOOD BY AUTOMATED COUNT 10.23 10*3/u L 4.50 - 11.00 07/17 Specimen Type: BLOOD No comment entered. Ordering Provider: LOUIE BOND Report Released Date/Time: Jul 04, 2024 10:36 AM Reporting Lab: [facility] [place] [address] [address] Performing Lab: [facility] [place] [facility] [address] [facility] [address] [facility] [place] [facility] CBC AND DIFF (AUTO) ERYTHROCYTE S [#/VOLUME] IN BLOOD BY AUTOMATED COUNT 3.66 10*6/u L 4.23 - 5.66 07/17 L Specimen Type: BLOOD No comment entered. Ordering Provider: LOUIE BOND Report Released Date/Time: Jul 04, 2024 10:36 AM Reporting Lab: [facility] [place] [address] [address] Performing Lab: [facility] [address] [facility] [address] [facility] CBC AND DIFF (AUTO) HEMOGLOBIN [MASS/VOLUM E] IN BLOOD 11.6 g/dL 12.8 - 17 07/17 L Specimen Type: BLOOD No comment entered. Ordering Provider: LOUIE BOND Report Released Date/Time: Jul 04, 2024 10:36 AM Reporting Lab: [facility] [address] [facility] [address] Performing Lab: [facility] [address] [facility] [address] [facility] CBC AND DIFF (AUTO) HEMATOCRIT [VOLUME FRACTION] OF BLOOD BY AUTOMATED COUNT 34.4 39.2 - 50.4 07/17 L Specimen Type: BLOOD No comment entered. Ordering Provider: LOUIE BOND Report Released Date/Time: Jul 04, 2024 10:36 AM Reporting Lab: [facility] [address] [facility] [address] Performing Lab: [facility] [address] [facility] [address] [facility] CBC AND DIFF (AUTO) MCV [ENTITIC VOLUME] BY AUTOMATED COUNT 94.0 fL 82 - 99 07/17 Specimen Type: BLOOD No comment entered. Ordering Provider: LOUIE BOND Report Released Date/Time: Jul 04, 2024 10:36 AM Reporting Lab: [facility] [address] [facility] [address] Performing Lab: [facility] [address] [facility] [address] [facility] [place] CBC AND DIFF (AUTO) MCHC [MASS/VOLUM E] BY AUTOMATED COUNT 33.7 g/dL 30.8 - 35.1 07/17 Specimen Type: BLOOD No comment entered. Ordering Provider: LOUIE BOND Report Released Date/Time: Jul 04, 2024 10:36 AM Reporting Lab: [facility] [place] [facility] [address] [facility] [address] Performing Lab: [facility] [place] [facility] [address] [facility] [address] [facility] [place] [facility] CBC AND DIFF (AUTO) PLATELETS [#/VOLUME] IN BLOOD BY AUTOMATED COUNT 292 10*3/u L 140 - 360 07/17 Specimen Type: BLOOD No comment entered. Ordering Provider: LOUIE BOND Report Released Date/Time: Jul 04, 2024 10:36 AM Reporting Lab: [facility] [place] [facility] [address] [facility] [address] Performing Lab: [facility] [place] [facility] [address] [facility] [address] [facility] [place] [facility] CBC AND DIFF (AUTO) PLATELET MEAN VOLUME [ENTITIC VOLUME] IN BLOOD BY AUTOMATED COUNT 9.4 fL 9.2 - 12.4 07/17 Specimen Type: BLOOD No comment entered. Ordering Provider: LOUIE BOND Report Released Date/Time: Jul 04, 2024 10:36 AM Reporting Lab: [facility] [place] [facility] [address] [facility] [address] Performing Lab: [facility] [place] [facility] [address] [facility] [address] [facility] [place] [facility] CBC AND DIFF (AUTO) ERYTHROCYTE DISTRIBUTIO N WIDTH [RATIO] BY AUTOMATED COUNT 13.5 12.0 - 16.0 07/17 Specimen Type: BLOOD No comment entered. Ordering Provider: LOUIE BOND Report Released Date/Time: Jul 04, 2024 10:36 AM Reporting Lab: [facility] [place] [facility] [address] [facility] [address] Performing Lab: [facility] [place] [facility] [address] [facility] [address] [facility] [place] [facility] CBC AND DIFF (AUTO) MONOCYTES [#/VOLUME] IN BLOOD BY AUTOMATED COUNT 0.84 10*3/u L 0.30 - 1.10 07/17 Specimen Type: BLOOD No comment entered. Ordering Provider: LOUIE BOND Report Released Date/Time: Jul 04, 2024 10:36 AM Reporting Lab: [facility] [place] [facility] [address] [facility] [address] Performing Lab: [facility] [place] [facility] [address] [facility] [address] [facility] [place] CBC AND DIFF (AUTO) MCH [ENTITIC MASS] BY AUTOMATED COUNT 31.7 pg 26.2 - 32.6 07/17 Specimen Type: BLOOD No comment entered. Ordering Provider: LOUIE BOND Report Released Date/Time: Jul 04, 2024 10:36 AM Reporting Lab: [facility] [place] [facility] [address] [facility] [address] Performing Lab: [facility] [place] [facility] [address] [facility] [address] [facility] [place] CBC AND DIFF (AUTO) NEUTROPHILS /100 LEUKOCYTES IN BLOOD BY AUTOMATED COUNT 70.1 43.7 - 75.8 07/17 Specimen Type: BLOOD No comment entered. Ordering Provider: LOUIE BOND Report Released Date/Time: Jul 04, 2024 10:36 AM Reporting Lab: [facility] [place] [facility] [address] [facility] [address] Performing Lab: [facility] [place] [facility] [address] [facility] [address] [facility] CBC AND DIFF (AUTO) LYMPHOCYTES /100 LEUKOCYTES IN BLOOD BY AUTOMATED COUNT 17.3 14.0 - 42.3 07/17 Specimen Type: BLOOD No comment entered. Ordering Provider: LOUIE BOND Report Released Date/Time: Jul 04, 2024 10:36 AM Reporting Lab: [facility] [place] [facility] [address] [facility] [address] Performing Lab: [facility] [place] [facility] [address] [facility] [address] [facility] CBC AND DIFF (AUTO) MONOCYTES/1 00 LEUKOCYTES IN BLOOD BY AUTOMATED COUNT 8.2 5.1 - 13.7 07/17 Specimen Type: BLOOD No comment entered. Ordering Provider: LOUIE BOND Report Released Date/Time: Jul 04, 2024 10:36 AM Reporting Lab: [facility] [place] [address] [address] Performing Lab: [facility] [place] [address] [address] [facility] [place] CBC AND DIFF (AUTO) EOSINOPHILS /100 LEUKOCYTES IN BLOOD BY AUTOMATED COUNT 2.9 0.4 - 6.8 07/17 Specimen Type: BLOOD No comment entered. Ordering Provider: LOUIE BOND Report Released Date/Time: Jul 04, 2024 10:36 AM Reporting Lab: [facility] [place] [address] [address] Performing Lab: [facility] [place] [address] [address] [facility] [place] [facility] CBC AND DIFF (AUTO) BASOPHILS/1 00 LEUKOCYTES IN BLOOD BY AUTOMATED COUNT 1.0 0.1 - 2.0 07/17 Specimen Type: BLOOD No comment entered. Ordering Provider: LOUIE BOND Report Released Date/Time: Jul 04, 2024 10:36 AM Reporting Lab: [facility] [place] [address] [address] Performing Lab: [facility] [place] [address] [address] [facility] CBC AND DIFF (AUTO) NEUTROPHILS [#/VOLUME] IN BLOOD BY AUTOMATED COUNT 7.17 10*3/u L 2.20 - 7.60 07/17 Specimen Type: BLOOD No comment entered. Ordering Provider: LOUIE BOND Report Released Date/Time: Jul 04, 2024 10:36 AM Reporting Lab: [facility] [place] [address] [address] Performing Lab: [facility] [place] [facility] [address] [facility] [address] [facility] [place] CBC AND DIFF (AUTO) LYMPHOCYTES [#/VOLUME] IN BLOOD BY AUTOMATED COUNT 1.77 10*3/u L 1.00 - 3.20 07/17 Specimen Type: BLOOD No comment entered. Ordering Provider: LOUIE BOND Report Released Date/Time: Jul 04, 2024 10:36 AM Reporting Lab: [facility] [place] [facility] [address] [facility] [address] Performing Lab: [facility] [place] [facility] [address] [facility] [address] [facility] [place] [facility] CBC AND DIFF (AUTO) EOSINOPHILS [#/VOLUME] IN BLOOD BY AUTOMATED COUNT 0.30 10*3/u L 0.03 - 0.44 07/17 Specimen Type: BLOOD No comment entered. Ordering Provider: LOUIE BOND Report Released Date/Time: Jul 04, 2024 10:36 AM Reporting Lab: [facility] [place] [facility] [address] [address] Performing Lab: [facility] [place] [facility] [address] [facility] [address] [facility] [place] [facility] CBC AND DIFF (AUTO) BASOPHILS [#/VOLUME] IN BLOOD BY AUTOMATED COUNT 0.10 10*3/u L 0.01 - 0.13 07/17 Specimen Type: BLOOD No comment entered. Ordering Provider: LOUIE BOND Report Released Date/Time: Jul 04, 2024 10:36 AM Reporting Lab: [facility] [place] [facility] [address] [address] Performing Lab: [facility] [place] [facility] [address] [facility] [address] [facility] [place] [facility] CBC AND DIFF (AUTO) IMMATURE GRANULOCYTE S/100 LEUKOCYTES IN BLOOD BY AUTOMATED COUNT 0.5 0.0 - 0.7 07/17 Specimen Type: BLOOD No comment entered. Ordering Provider: LOUIE BOND Report Released Date/Time: Jul 04, 2024 10:36 AM Reporting Lab: [facility] [place] [facility] [address] [address] Performing Lab: [facility] [place] [facility] [address] [facility] [address] [facility] [place] [facility] CBC AND DIFF (AUTO) IMMATURE GRANULOCYTE S [#/VOLUME] IN BLOOD BY AUTOMATED COUNT 0.05 10*3/u L 0.00 - 0.06 07/17 Specimen Type: BLOOD No comment entered. Ordering Provider: LOUIE BOND Report Released Date/Time: Jul 04, 2024 10:36 AM Reporting Lab: [facility] [place] [facility] [address] [address] Performing Lab: [facility] [place] [facility] [address] [facility] [address] [facility] [place] [facility] CBC AND DIFF (AUTO) NUCLEATED ERYTHROCYTE S/100 LEUKOCYTES [RATIO] IN BLOOD BY AUTOMATED COUNT 0.0 0.0 - 0.0 07/17 Specimen Type: BLOOD No comment entered. Ordering Provider: LOUIE BOND Report Released Date/Time: Jul 04, 2024 10:36 AM Reporting Lab: [facility] [facility] [address] [address] Performing Lab: [facility] [place] [facility] [address] [address] [facility] CBC AND DIFF (AUTO) NUCLEATED ERYTHROCYTE S [#/VOLUME] IN BLOOD BY AUTOMATED COUNT 0.00 10*3/u L 0.00 - 0.00 07/17 Specimen Type: BLOOD No comment entered. Ordering Provider: LOUIE BOND Report Released Date/Time: Jul 04, 2024 10:36 AM Reporting Lab: [facility] [place] [facility] [address] [address] Performing Lab: [facility] [place] [facility] [address] [address] [facility] MAGNESIUM MAGNESIUM [MASS/VOLUM E] IN SERUM OR PLASMA 1.5 mg/dL 1.6 - 2.6 07/17 L Specimen Type: SERUM No comment entered. Ordering Provider: ROXANA BALDWIN Report Released Date/Time: May 21, 2024 08:43 AM Reporting Lab: [facility] [address] [address] Performing Lab: [facility] [address] [address] [place] VITAMIN D (25-OH) 25-HYDROXYV ITAMIN D3+25-HYDRO XYVITAMIN D2 [MASS/VOLUM E] IN SERUM OR PLASMA 13.6 ng/mL 20 - 50 07/17 L Specimen Type: SERUM No comment entered. Ordering Provider: ROXANA BALDWIN Report Released Date/Time: May 21, 2024 08:43 AM Reporting Lab: [address] [address] Performing Lab: [facility] [address] [place] IRON & TIBC PANEL IRON BINDING CAPACITY [MASS/VOLUM E] IN SERUM OR PLASMA 268 ug/dL 204 - 475 07/17 Specimen Type: SERUM No comment entered. Ordering Provider: ROXANA BALDWIN Report Released Date/Time: May 21, 2024 08:43 AM Reporting Lab: [address] [address] Performing Lab: [facility] [address] [place] IRON & TIBC PANEL IRON [MASS/VOLUM E] IN SERUM OR PLASMA 76 ug/dL 65 - 175 07/17 Specimen Type: SERUM No comment entered. Ordering Provider: ROXANA BALDWIN Report Released Date/Time: May 21, 2024 08:43 AM Reporting Lab: [facility] [address] Performing Lab: [address] [address] [place] IRON & TIBC PANEL IRON/IRON BINDING CAPACITY.TO JOSE G [MASS RATIO] IN SERUM OR PLASMA 28.4 15 - 45 07/17 Specimen Type: SERUM No comment entered. Ordering Provider: ROXANA BALDWIN Report Released Date/Time: May 21, 2024 08:43 AM Reporting Lab: [address] [address] Performing Lab: [address] [address] [place] IRON & TIBC PANEL TRANSFERRIN [MASS/VOLUM E] IN SERUM OR PLASMA 203 mg/dL 180 - 382 07/17 Specimen Type: SERUM No comment entered. Ordering Provider: ROXANA BALDWIN Report Released Date/Time: May 21, 2024 08:43 AM Reporting Lab: [address] [address] Performing Lab: [address] [address] [place] HEMOGLOBI N A1C PANEL HEMOGLOBIN A1C/HEMOGLO BIN.TOTAL IN BLOOD BY IFCC PROTOCOL 7.5 4.0 - 5.6 07/17 H Specimen Type: BLOOD Comment: Values obtained from A1C measurement s can vary. For atypical A1C assays, a reported value of 7.0 could actually be between 6.72 and 7.28 if measured by a reference method. A reported value of 9.0 could actually be between 8.73 and 9.27. Ref: http://www. ngsp.org/[place] Pdata.asp Ordering Provider: ROXANA BALDWIN Report Released Date/Time: May 21, 2024 08:43 AM Reporting Lab: [address] [address] Performing Lab: [address] [address] [place] TSH THYROTROPIN [UNITS/VOLU ME] IN SERUM OR PLASMA BY DETECTION LIMIT <= 0.005 MIU/L 1.19 u[IU]/ mL 0.35 - 4.94 07/17 Specimen Type: SERUM No comment entered. Ordering Provider: ROXANA BALDWIN Report Released Date/Time: May 21, 2024 08:43 AM Reporting Lab: [facility] [address] [address] Performing Lab: [facility] [address] [address] [place] BASIC METABOLIC PANEL (fasting) UREA NITROGEN [MASS/VOLUM E] IN SERUM OR PLASMA 22 mg/dL 8 - 26 07/17 Specimen Type: SERUM No comment entered. Ordering Provider: ROXANA BALDWIN Report Released Date/Time: May 21, 2024 08:43 AM Reporting Lab: [facility] [address] [address] Performing Lab: [address] [address] [place] BASIC METABOLIC PANEL (fasting) GLUCOSE [MASS/VOLUM E] IN SERUM OR PLASMA 114 mg/dL 65 - 100 07/17 H Specimen Type: SERUM No comment entered. Ordering Provider: ROXANA BALDWIN Report Released Date/Time: May 21, 2024 08:43 AM Reporting Lab: [address] [address] Performing Lab: [facility] [address] [address] [place] BASIC METABOLIC PANEL (fasting) SODIUM [MOLES/VOLU ME] IN SERUM OR PLASMA 132 mmol/L 136 - 145 07/17 L Specimen Type: SERUM No comment entered. Ordering Provider: ROXANA BALDWIN Report Released Date/Time: May 21, 2024 08:43 AM Reporting Lab: [facility] [address] [address] Performing Lab: [facility] [address] [address] [place] BASIC METABOLIC PANEL (fasting) POTASSIUM [MOLES/VOLU ME] IN SERUM OR PLASMA 4.8 mmol/L 3.5 - 5.1 07/17 Specimen Type: SERUM No comment entered. Ordering Provider: ROXANA BALDWIN Report Released Date/Time: May 21, 2024 08:43 AM Reporting Lab: [facility] [address] [address] Performing Lab: [facility] [address] [address] [place] BASIC METABOLIC PANEL (fasting) CHLORIDE [MOLES/VOLU ME] IN SERUM OR PLASMA 100 mmol/L 98 - 107 07/17 Specimen Type: SERUM No comment entered. Ordering Provider: ROXANA BALDWIN Report Released Date/Time: May 21, 2024 08:43 AM Reporting Lab: [facility] [address] [address] Performing Lab: [facility] [address] [address] [place] BASIC METABOLIC PANEL (fasting) CARBON DIOXIDE, TOTAL [MOLES/VOLU ME] IN SERUM OR PLASMA 25 meq/L 23 - 31 07/17 Specimen Type: SERUM No comment entered. Ordering Provider: ROXANA BALDWIN Report Released Date/Time: May 21, 2024 08:43 AM Reporting Lab: [facility] [address] [address] Performing Lab: [facility] [address] [address] [place] BASIC METABOLIC PANEL (fasting) CALCIUM [MASS/VOLUM E] IN SERUM OR PLASMA 9.1 mg/dL 8.8 - 10 07/17 Specimen Type: SERUM No comment entered. Ordering Provider: ROXANA BALDWIN Report Released Date/Time: May 21, 2024 08:43 AM Reporting Lab: [facility] [address] [address] Performing Lab: [facility] [address] [address] [place] BASIC METABOLIC PANEL (fasting) CREATININE [MASS/VOLUM E] IN SERUM OR PLASMA 1.06 mg/dL 0.72 - 1.25 07/17 Specimen Type: SERUM No comment entered. Ordering Provider: ROXANA BALDWIN Report Released Date/Time: May 21, 2024 08:43 AM Reporting Lab: [facility] [address] [address] Performing Lab: [address] [address] [place] BASIC METABOLIC PANEL (fasting) GLOMERULAR FILTRATION RATE/1.73 SQ M.PREDICTED [VOLUME RATE/AREA] IN SERUM, PLASMA OR BLOOD BY CREATININE- BASED FORMULA (CKD-EPI 2020) 73 mL/min 60 07/17 Specimen Type: SERUM No comment entered. Ordering Provider: ROXANA BALDWIN Report Released Date/Time: May 21, 2024 08:43 AM Reporting Lab: [address] [address] Performing Lab: [address] [address] [place] LIPID PANEL FASTING CHOLESTEROL [MASS/VOLUM E] IN SERUM OR PLASMA 157 mg/dL 07/17 Specimen Type: SERUM No comment entered. Ordering Provider: ROXANA BALDWIN Report Released Date/Time: May 21, 2024 08:43 AM Reporting Lab: [address] [address] Performing Lab: [address] [address] [place] LIPID PANEL FASTING TRIGLYCERID E [MASS/VOLUM E] IN SERUM OR PLASMA 74 mg/dL 0 - 150 07/17 Specimen Type: SERUM No comment entered. Ordering Provider: ROXANA BALDWIN Report Released Date/Time: May 21, 2024 08:43 AM Reporting Lab: [facility] [address] [address] Performing Lab: [address] [address] [place] LIPID PANEL FASTING CHOLESTEROL IN LDL [MASS/VOLUM E] IN SERUM OR PLASMA BY CALCULATION 73 mg/dL 0 - 129 07/17 Specimen Type: SERUM No comment entered. Ordering Provider: ROXANA BALDWIN Report Released Date/Time: May 21, 2024 08:43 AM Reporting Lab: [facility] [address] [address] Performing Lab: [address] [address] [place] LIPID PANEL FASTING CHOLESTEROL .TOTAL/CHOL ESTEROL IN HDL [MASS RATIO] IN SERUM OR PLASMA 2.3 07/17 Specimen Type: SERUM No comment entered. Ordering Provider: ROXANA BALDWIN Report Released Date/Time: May 21, 2024 08:43 AM Reporting Lab: [address] [address] Performing Lab: [address] [address] [place] LIPID PANEL FASTING CHOLESTEROL IN HDL [MASS/VOLUM E] IN SERUM OR PLASMA 69 mg/dL 40 07/17 Specimen Type: SERUM No comment entered. Ordering Provider: ROXANA BALDWIN Report Released Date/Time: May 21, 2024 08:43 AM Reporting Lab: [facility] [address] [address] Performing Lab: [facility] [address] [address] [place] PSA PROSTATE SPECIFIC AG [MASS/VOLUM E] IN SERUM OR PLASMA BY IMMUNOASSAY 1.0 ng/mL 0.0 - 4.0 07/17 Specimen Type: SERUM No comment entered. Ordering Provider: ROXANA BALDWIN Report Released Date/Time: May 21, 2024 08:43 AM Reporting Lab: [facility] [address] [address] Performing Lab: [facility] [address] [address] [place] Vital Signs Combined list of inpatient and outpatient Vital Signs from Department of Defense and Veterans Affairs, ranging from 12 months to all on record, depending upon the facility. Vital Sign Value Date Comments Source SYSTOLIC BLOOD PRESSURE 150 06/26/2024 10:34:28 [place] DIASTOLIC BLOOD PRESSURE 80 06/26/2024 10:34:28 [place] PULSE OXIMETRY 96 06/26/2024 10:34:28 [place] WEIGHT 120 06/26/2024 10:34:28 [place] BMI 20 kg/m2 06/26/2024 10:34:28 [place] PULSE 93 06/26/2024 10:34:28 [place] SYSTOLIC BLOOD PRESSURE 146 04/17/2024 10:09:34 [place] DIASTOLIC BLOOD PRESSURE 73 04/17/2024 10:09:34 [place] PULSE OXIMETRY 98 04/17/2024 10:09:34 [place] PULSE 94 04/17/2024 10:09:34 [place] SYSTOLIC BLOOD PRESSURE 146 01/29/2024 10:33:16 [place] DIASTOLIC BLOOD PRESSURE 76 01/29/2024 10:33:16 [place] PULSE OXIMETRY 99 01/29/2024 10:33:16 [place] WEIGHT 121.2 01/29/2024 10:33:16 [place] BMI 20 kg/m2 01/29/2024 10:33:16 [place] TEMPERATURE 97.6 01/29/2024 10:33:16 [place] PULSE 88 01/29/2024 10:33:16 [place] Encounters Combined list of: 1) Encounters from Department of Veterans Affairs facilities going backup to the last 18 months, not all VA inpatient encounters are included; 2) Encounters from the Department of Defense facilities going backup to 280 months. Location Location Details Encounter Type Encounter Number Reason For Visit Attending Provider ADM Date DC Date Status Disposition Source [facility] OFFICE O/P EST LOW 20-29 MIN [id number] Diagnos is: ICD-10- CM M25.561 Pain in right knee STELEA,CAR MEN F 02/16 [facility] GRP EA ADDL [id number] 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, as defined in [place] MICHAEL LENNON 02/17 [facility] Outpatient Encounter [id number] 03/01 [facility] [place] IV[facility]J GRP EA ADDL [id number] 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, [place] defined [place] MICHAEL LENNON 03/10 [facility] Outpatient Encounter [id number] 03/15 [facility] OFFICE O/P EST HI 40-54 MIN [id number] 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, as defined in [place] LISET BAUMAN 03/16 [facility] FIT SPECTACLES MONOFOCAL [id number] Diagnos is: ICD-10- CM Z46.0 Encount er for fit/adj st of spectac les and contact lenses LISET BAUMAN 03/16 [facility] En[facility] [id number] 04/11 [facility] [place] HLTH BHV IVNTJ GRP EA ADDL [id number] 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, [place] defined [place] MICHAEL LENNON 04/14 [facility] HC PRO PHONE CALL 21-30 MIN [id number] 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, as defined in [facility] ISTOPHER T 04/18 [facility] [place] OFFICE O/P EST LOW 20 MIN [id number] Diagnos is: ICD-10- CM L60.3 Nail dystrop hy ROSS,CHARL ES F 04/20 [place] [facility] BHV IVNTJ GRP EA ADDL [id number] 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, as defined in [facility] 04/28 [facility] En[facility] [id number] 04/28 [facility] SENSORY INTEGRATIO N [id number] 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, as defined in [facility] T 05/01 [facility] En[facility] [id number] 05/05 [facility] En[facility] [id number] 05/05 [facility] En[facility] [id number] 05/10 [facility] En[facility] [id number] 05/11 [facility] [place] [facility] HLTH BHV IVNTJ GRP EA ADDL [id number] 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, [place] defined [place] MICHAEL LENNON 05/12 [facility] [place] [facility] [place] Outpatient Encounter [id number] 05/15 [facility] [place] [facility] OFFICE O/P EST HI 40 MIN [id number] Diagnos is: ICD-10- CM E11.9 Type 2 diabete s mellitu s without complic ations CHER GASPAR CE 05/19 [facility] [place] [place] [facility] (6[facility]GE[facility] QNHP OL DIG ASSMT&MGMT 5-10 [id number] Diagnos is: ICD-10- CM E11.9 Type 2 diabete s mellitu s without complic ations LEONARD MITCHELL 05/19 [facility] (6[facility]GE) [facility] [place] Outpatient Encounter [id number] 05/21 [facility] [place] [facility] Outpatient Encounter [id number] Diagnos is: ICD-10- CM E11.40 Type 2 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, unsp GASPAR,ALI CE 05/23 [facility] [place] [place] [facility] PRO PHONE CALL 21-30 MIN [id number] 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, as defined in [place] SANDY LENNON ISZONIA Mckeon 05/23 [facility] En[facility] [id number] 06/01 [facility] SENSORY INTEGRATIO N [id number] 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, as defined in [facility]01 [facility] CASE MANAGEMENT [id number] 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, as defined in [facility] 06/05 [facility] BHV IVNTJ GRP EA ADDL [id number] MICHAEL LENNON 06/08 [facility] Outpatient Encounter [id number] 06/08 [facility] HL[facility] BHV IVNTJ GRP EA ADDL [id number] 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, as defined in [facility] SANDY LENNON ISTOPHER T 06/22 [facility] HL[facility] BHV IVNTJ GRP EA ADDL [id number] 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, as defined in [facility] MICHAEL LENNON 06/29 [facility] [place] [facility] OFFICE O/P EST LOW 20 MIN [id number] Diagnos is: ICD-10- CM L60.3 Nail dystrop hy JEANETTE GALVAN ES F 07/12 [place] [facility] HL[facility] BHV IVNTJ GRP EA ADDL [id number] 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, as defined in [facility] MICHAEL LENNON M 07/13 [facility] En[facility] [id number] 07/17 [facility] [place] OFFICE O/P EST MOD 30 MIN [id number] Diagnos is: ICD-10- CM I10 Essenti al (primar y) hyperte nsion STELEA,CAR MEN F 07/23 [place] [facility] HLTH BHV IVNTJ GRP EA ADDL [id number] 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, as defined in [facility] SANDY LENNON ISTOP T 07/27 [facility] HEARING AID EXAM BOTH EARS [id number] Diagnos is: ICD-10- CM H90.3 Sensori neural hearing loss, bilater al Arjun WITT E 07/27 [facility] EXTENDED VISUAL FIELD XM [id number] 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, as defined in [facility] LISET BAUMAN 07/27 [facility] FUNDUS PHOTOGRAPH Y W/I&R [id number] 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, as defined in [facility] LISET BAUMAN 07/27 [facility] [place] [id number] 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, [place] defined [place] LISET BAUMAN 07/27 [facility] HC PRO PHONE CALL 11-20 MIN [id number] 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, [place] defined in [place] SANDY LENNON ISTOPHER T 08/03 [facility] HEARING SERVICE [id number] Diagnos is: ICD-10- CM Z46.1 Encount er for fitting and adjustm ent of hearing aid FELIX VALERO 08/21 [facility] Out[facility] Encounter [id number] Diagnos is: ICD-10- CM E11.9 Type 2 diabete s mellitu s without complic ations ERIC FRANCIS 08/31 [facility] OFFICE O/P [place] HI 40 MIN [id number] Diagnos is: ICD-10- CM E11.9 Type 2 diabete s mellitu s without complic ations CHER GASPAR 08/31 [facility] En[facility] [id number] 08/31 [facility] CONT GLUC MNTR ANALYSIS I&R [id number] Diagnos is: ICD-10- CM E11.9 Type 2 diabete s mellitu s without complic ations CHER GASPAR 08/31 [facility] [place] [place] [facility] (6[facility]GE) QNHP OL DIG ASSMT&MGMT 5-10 [id number] Diagnos is: ICD-10- CM E11.9 Type 2 diabete s mellitu s without complic ations LEONARD MITCHELL N 09/03 [facility]631GE[facility] HLTH BHV IVNTJ GRP EA ADDL [id number] 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, as defined in [facility] MICHAEL LENNON 09/14 [facility] [place] [place] [facility] HLTH BHV IVNTJ GRP EA ADDL [id number] 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, as defined in [facility] SANDY LENNON ISTOPHER Mckeon 09/21 [facility] [place] [facility] [place] [facility] Outpatient Encounter [id number] 09/25 [facility] [place] [facility] [place] [facility] Outpatient Encounter [id number] 10/18 [facility] [place] [facility] O/P EST MOD 30 MIN [id number] Diagnos is: ICD-10- CM L60.3 Nail dystrop hy ROSSCHAREna ES F 10/18 [place] [facility] [place] [facility] Outpatient Encounter [id number] 10/22 [facility] [place] [facility] [place] [facility] Outpatient Encounter [id number] 10/25 [facility] [place] [facility] [facility] [place] [facility] IVNTJ GRP EA ADDL [id number] 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, as defined in [facility] ISTOPHER T 10/26 [facility] [place] [facility] [facility] [place] [facility] IVNTJ GRP EA ADDL [id number] 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, as defined in [facility] CITLALLI,[facility] 11/09 [facility] [place] [facility] [facility] [place] [facility] IVNTJ GRP EA ADDL [id number] 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, as defined in [facility] ISTOPHER T 11/23 [facility] [place] [facility] [place] MTMS BY PHARM ADDL 15 MIN [id number] Diagnos is: ICD-10- CM E11.9 Type 2 diabete s mellitu s without complic ations KIMBERLY,TYRON IE 12/04 [place] DI[facility] MANA[place] TRN PER INDIV [id number] Diagnos is: ICD-10- CM E11.9 Type 2 diabete s mellitu s without complic ations LARISA PEREZ P 12/12 [place] MT[place] BY PHARM ADDL 15 MIN [id number] Diagnos is: ICD-10- CM E11.9 Type 2 diabete s mellitu s without complic ations KIMBERLY,TYRON IE 12/17 [place] [facility] [place] [facility] IVNTJ GRP EA ADDL [id number] 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, as defined in [facility] CHRISTIANO MACEDO 12/28 [facility] [place] [facility] [facility] [place] [facility] IVNTJ GRP EA ADDL [id number] 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, as defined in [facility] MICHAEL LENNON 01/11 [facility] [place] [facility] [place] Out[place] En[place] [id number] 1BY. 15 01/21 [place] [facility] [place] [facility] HC PRO PHONE CALL 5-10 MIN [id number] 1. 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, as defined in [facility] MICHAEL LENNON 01/21 [facility] [place] [facility] MTMS BY PHARM CLINICAL PRACTICE CONSULTANT 15 MIN [id number] Diagnos is: ICD-10- CM E11.9 Type 2 diabete s mellitu s without complic ations TYRON HARRIS IE 01/23 [place] [facility] [facility] En[facility] [id number] 1.01/24 [facility] Encounter [id number] 01/25 [facility] HLTH BHV IVNTJ GRP EA ADDL [id number] 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, as defined in [facility] SANDY LENNON ISTOPHER T 01/25 [facility] [place] OFF[place] O/P EST MOD 30 MIN [id number] Diagnos is: ICD-10- CM N18.9 Chronic kidney disease , unspeci fied ARASH AGUILA F 01/28 [place] [facility] [place]AT[place] ADMIN [id number] ARASH AGUILA 01/28 [facility] Out[facility] Encounter [id number] MICHAEL LENNON M 02/01 [facility] Outpatient Encounter [id number] 02/01 [facility] MTMS BY PHARM CLINICAL PRACTICE CONSULTANT 15 MIN [id number] Diagnos is: ICD-10- CM E11.9 Type 2 diabete s mellitu s without complic ations TYRON HARRIS IE 02/06 [facility] PER INDIV [id number] 1BY. 13 Diagnos is: ICD-10- CM E11.9 Type 2 diabete s mellitu s without complic ations LARISA PEREZ P 02/13 [facility] HC PRO PHONE CALL 11-20 MIN [id number] 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, as defined in [place] SANDY LENNON ISTOPHER T 02/19 [facility] FIT SPECTACLES MONOFOCAL [id number] Diagnos is: ICD-10- CM Z46.0 Encount er for fit/adj st of spectac les and contact lenses CHER DODSON 02/19 [facility] [place] OFF[facility] O/P EST LOW 20 MIN [id number] [id number] Diagnos is: ICD-10- CM L60.3 Nail dystrop hy JEANETTE GALVAN F 02/21 [place] [facility] GROUP THERAPEUTI C PROCEDURES [id number] 1. 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, as defined in [facility] SANDY LENNON ISTOPHER T 02/22 [facility] [place] RISK ASSESSMENT DOCD [id number] 1. 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, as defined in [facility] MICHAEL LENNON 02/27 [facility] GROUP THERAPEUTI C PROCEDURES [id number] 1. 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, as defined in [facility] MICHAEL LENNON 03/04 [facility] [place] PSY[place] W PT 30 MINUTES [id number] [id number] 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, as defined in [facility] Sonia BAKER 03/06 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 [place] Outpatient Encounter [id number] 03/08 [place] [facility] GROUP THERAPEUTI C PROCEDURES [id number] 1. 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, as defined in [facility] MICHAEL LENNON 03/15 [facility] [place] QNHP OL DIG ASSMT&MGMT 5-10 [id number] [id number] 46 Diagnos is: ICD-10- CM E11.9 Type 2 diabete s mellitu s without complic ations MAHENDRA EPPS 03/19 [place] [facility] Out[facility] Encounter [id number] 03/20 [facility] HC PRO PHONE CALL 21-30 MIN [id number] [id number] 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, as defined in [facility] SANDY LENNON ISTOPHER T 03/20 [facility] HC PRO PHONE CALL 11-20 MIN [id number] 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, as defined in [facility] SANDY LENNON ISTOPHER T 03/25 [facility] [place] PSYTX W PT 30 MINUTES [id number] [id number] 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, as defined in [facility] Sonia BAKER 04/05 [place] [facility] GROUP THERAPEUTI C PROCEDURES [id number] 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, as defined in [facility] MICHAEL LENNON 04/12 [facility] [place] O/P EST HI 40 MIN [id number] [id number] Diagnos is: ICD-10- CM G25.0 Essenti al tremor JAKY BALDWIN 04/17 [place] [facility] GROUP THERAPEUTI C PROCEDURES [id number] 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, as defined in [facility] 04/26 [facility] [place] MTMS BY PHARM CLINICAL PRACTICE CONSULTANT 15 MIN [id number] [id number] Diagnos is: ICD-10- CM E11.9 Type 2 diabete s mellitu s without complic ations KIMBERLY,TYRON IE 05/03 [place] [facility] GROUP THERAPEUTI C PROCEDURES [id number] 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, as defined in [facility] MICHAEL LENNON 05/17 [facility] PH1 ASSMT&MGMT NQHP 11-20 [id number] 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, as defined in [facility] SANDY LENNON ISTOPHER T 05/21 [facility] RPR&REFITG SPECT XCP APHAKIA [id number] Diagnos is: ICD-10- CM Z46.0 Encount er for fit/adj st of spectac les and contact lenses DONNA,A ANNEMARIE J 05/29 [facility] GROUP THERAPEUTI C PROCEDURES [id number] 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, as defined in [facility] MICHAEL LENNON 06/14 [facility] Outpatient Encounter [id number] 06/16 [facility] Outpatient Encounter [id number] 06/17 [facility] Encounter [id number] [id number] 06/21 [facility] Encounter [id number] 06/24 [facility] OFFICE O/P EST MOD 30 MIN [id number] [id number] Diagnos is: ICD-10- CM D50.9 Iron deficie ncy anemia, unspeci fiMyranda Tavera 06/26 [facility]/P EST LOW 20 MIN [id number] Diagnos is: ICD-10- CM L60.3 Nail dystrop hy ROSS,CHARL ES F 06/27 [facility] Outpatient Encounter [id number] 06/28 [facility] GROUP THERAPEUTI C PROCEDURES [id number] 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, as defined in [place] CITLALLI,CHR ISTOPHER T 06/28 [facility] Out[facility] Encounter [id number] 06/28 [facility] NQHP OL DIG ASSMT&MGMT 5-10 [id number] [id number] Diagnos is: ICD-10- CM 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 CINTHIA,KAITLIN RISTY A 07/04 [facility] Outpatient Encounter [id number] [id number] 07/08 [facility] Out[facility] Encounter [id number] 07/08 [facility] [place] MTMS BY PHARM CLINICAL PRACTICE CONSULTANT 15 MIN [id number] [id number] Diagnos is: ICD-10- CM E11.9 Type 2 diabete s mellitu s without complic ations KIMBERLY,TYRON IE 07/09 [place] [facility] Out[facility] Encounter [id number] 07/11 [facility] GROUP THERAPEUTI C PROCEDURES [id number] 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, as defined in [place] MICHAEL LENNON 07/12 [facility] Out[facility] Encounter [id number] 07/17 [facility] [place] DIAB MANAGE TRN PER INDIV [id number] [id number] Diagnos is: ICD-10- CM E11.9 Type 2 diabete s mellitu s without complic ations LARISA PEREZ P 07/17 [place] [facility] Outpatient Encounter [id number] 07/19 [facility] GROUP THERAPEUTI C PROCEDURES [id number] 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 Social History Type Response Date Comment Source Tobacco smoking status [facility] NEVER USED 01/29/2024 [facility] of [facility] Y[facility] 03/29/2021 [facility] History of tobacco use [facility] FORMER [facility] 12/19/2019 [facility] of [facility]2018 [facility] History of tobacco use QUIT TOBACCO USE > 7 YEARS AGO 07/04/2017 stopped 7-10 years ago [facility] History of tobacco use QUIT TOBACCO USE 1-7 YEARS AGO 10/19/2016 [facility] History of tobacco use QUIT TOBACCO USE 1-7 YEARS AGO 02/01/2016 1.5 yrs. [facility] History of tobacco use QUIT TOBACCO USE 1-7 YEARS AGO 12/11/2014 [facility] History of tobacco use CURRENT SMOKER 02/17/2014 2 CIGARS A DAY [facility] Plan of Care List of future care activities from [facility] facilities. Additional future care activities may be listed in the Assessment and Plan section. Date/Time Care Activity Care Activity Detail Facili ty 08/29/2024 AMBULATORY - REHAB MEDICINE AMBULATORY - REHAB MEDICINE [facility] Advance Directives List of completed, amended, or rescinded Advance Directives on record at [facility] of [facility] facilities. An actual copy of the Directive is not included. Date Advance Directive Provider Source 03/29/2021 ADVANCE DIRECTIVE TYSON STORY
--- OUTSIDE RECORDS SUMMARY | 2024-08-13 11:35 | XMS_ITS | Patient Health Record ---
Author Organization [facility] Address [address] [place] [id number] Care Team Providers Care Sliver Former Name Role Phone Celeste Mishra Primary Care Provider Jason Zavaleta Unavailable [phone] Reason For Referral No Information Medications Medication [...] Problem Status W/U Status Risk Notes Problem [id number] Encounter for screening for malignant neoplasm of colon (Z12.11) Active confirmed Problem [id number] Diarrhea, unspecified type (R19.7) Active confirmed Plan Of Treatment Future Test Test Name Order Date COLONOSCOPY 12/25/2019 Insurance Providers Payer Name Payer Address Payer Phone Subscriber Number Group Number Insured Name Patient Relationship to Insured Coverage Start Date Coverage End Date [facility] [employer] [address] [place] [id number] [place] KHAN Self - patient is the insured Medical (General) History Medical History History ICD Code IDDM Hypertension Legally Blind - Vision Impaired Denies [place],CVA,Lung disease,renal disease Negative colonoscopy in appr ox. 2009 at [place] and told to do one in 10 years Told of negative stool test at home 2019 --? Cologuard GERD Surgical History Surgery Date(Month/Year)
--- OUTSIDE RECORDS SUMMARY | 2024-08-13 11:36 | XMS_ITS | Encounter Summary ---
Author Name [facility] [place] [facility] [place] Address [address] [place] [address] Care Team Providers Care Coal Inspector Name Role Phone TRESSA BOND Primary Care [...] Name Patient's Relationship to Policy Velez MEDICARE ([facility]) MEDICARE (M) PART B Jan 01, 2014 PART B [id number] PAR[place] KHAN PATIENT MEDICARE (WN) MEDICARE (M) PART B Jan 01, 2014 PART B [id number] [place] KHAN PATIENT MEDICARE (WNR) MEDICARE (M) PART A May 04, 2013 PART A [id number] PARISH KHAN PATIENT MEDICARE (WNR) MEDICARE (M) PART A May 04, 2013 PART A [id number] PAR[place] KHAN PATIENT [facility] (R) MEDICARE ADVANTAGE [facility] ([facility]) Apr 03, 2016 [facility] ([facility]) [id number] [phone] PARISH KHAN PATIENT Selected Encounter This section includes the information on record at [place] for the Encounter. Date/Time Encounter Type Encounter Description Reason Provider Source August 06, 2024 11:00 AM COMPRE OPH EXAM EST PT 1/> OPTOMETRY ICD-10-CM H54.8 Legal blindness, as defined in [place] MARIANA BAUMAN [place] Encounter Template Text not used by [place] Assessments - Encounter Diagnoses This section includes the primary and secondary diagnoses documented for the Encounter. Date/Time Primary/Secondary Diagnosis Diagnosis Name Provider Source August 06, 2024 01:20 PM PRIMARY Legal blindness, as defined in [place] MAR[place] BAUMAN [place] [facility] [place] [facility] August 06, 2024 01:20 PM SECONDARY Combined forms of age-related cataract, bilateral MARIANA BAUMAN [place] [facility] [place] [facility] August 06, 2024 01:20 PM SECONDARY Dry eye syndrome of bilateral lacrimal glands MARIANA BAUMAN [place] [facility] [place] [facility] August 06, 2024 01:20 PM SECONDARY Type 2 diabetes mellitus without complications MARIANA BAUMAN [place] [facility] [place] [facility] August 06, 2024 01:20 PM SECONDARY Unspecified hereditary retinal dystrophy MAR[place] BAUMAN [place] [facility] Plan of Treatment: Future Appointments (+ 6 months) and Future Tests (+/- 45 days) The Plan of Treatment section includes future care activities for the patient from all [place] treatmentfacilities. This section includes future appointments and future orders which are active, pending or scheduled. Future Appointments This section includes appointments that were scheduled to occur 6 months from the date of the Encounter, up to a maximum of 20 appointments. The data comes from all [place] treatment facilities. Appointment Date/Time Appointment Type Appointme nt Facility Name August 29, 2024 11:00 AM AMBULATORY - [place]ICIN [place] [facility] [place] [facility] Sep 25, 2024 10:00 AM [facility] Oct 02, 2024 10:30 AM [facility] Oct 16, 2024 10:00 AM [facility] Dec 25, 2024 11:00 AM [facility] Active, Pending, and Scheduled Orders This section includes a listing of several types of active, pending, and scheduled orders, including clinic medications orders, diagnostic test orders, procedure orders and consult orders; where the start date of the order is 45 days before the date of the Encounter or 45 days after the date of theEncounter. The data comes from all [place] treatment facilities. Test Date/Time Test Type Test Details Facility Name Jun 26, 2024 12:04 PM Consult Order [facility]-GEN SURGERY Cons [facility] Jul 08, 2024 04:41 PM Consult Order [facility]-NEPHROLOGY [facility] Road[facility] Lab Results: +/- 30 days of the encounter This section includes the Chemistry and Hematology Lab Results on record with [place] for the patient. Radiology Reports and Pathology Reports are provided separately, in subsequent sections. Lab Results This section contains the Chemistry/Hematology Results that were resulted 30 days before or 30 daysafter the date of the Encounter. Date/Time Source Result Type Result - Unit Interpretation Reference Range Specimen Type Comment Jul 17, 2024 11:14 AM [place] [facility] [facility] [place] [facility] FERRITIN SERUM Specimen Type: SERUM No comment entered. Ordering Provider: JAYDEN BOND Report Released Date/Time: Jul 04, 2024 10:36 AM Reporting Lab: [place] [facility] [place] [facility] [address] [facility] [address] Performing Lab: [place] [facility] [facility] [address] [facility] [address] FERRITIN 144.3 ng/mL 21.8-274.7 Jul 17, 2024 11:14 AM [facility] [place] [facility] CBC AND DIFF (AUTO) BLOOD Specimen Type: BLOO D No comment entered. Ordering Provider: TRESSA BOND Report Released Date/Time: Jul 04, 2024 10:36 AM Reporting Lab: [place] [facility] [place] [facility] [address] [facility] [address] Performing Lab: [facility] [place] [facility] [address] [facility] [address] WBC 10.23 10*3/uL 4.50-11.00 RBC 3.66 10*6/uL [...] 10*3/uL 0.00-0.00 Jul 17, 2024 11:14 AM [facility] VITAMIN D (25-OH) SERUM Specimen Type : SERUM No comment entered. Ordering Provider: DARLIN BALDWIN Report Released Date/Time: May 21, 2024 08:43 AM Reporting Lab: [address] [address] Performing Lab: [address] [address] VITAMIN D (25-OH) 13.6 ng/mL L 20-50 Jul 17, 2024 11:14 AM [facility] MAGNESIUM SERUM Sp ecimen Type: SERUM No comment entered. Ordering Provider: DARLIN BALDWIN Report Released Date/Time: May 21, 2024 08:43 AM Reporting Lab: [address] [address] Performing Lab: [address] [address] MAGNESIUM 1.5 mg/dL L 1.6-2.6 Jul 17, 2024 11:14 AM [facility] IRON & TIBC PANEL SERUM Specimen Type : SERUM No comment entered. Ordering Provider: DARLIN BALDWIN Report Released Date/Time: May 21, 2024 08:43 AM Reporting Lab: [address] [address] Performing Lab: [address] [address] TIBC 268 ug/dL 204-475 IRON 76 ug/dL 65-175 Transferrin Saturation 28.4 15-45 Transferrin (TRF) 203 mg/dL 180-382 Jul 17, 2024 11:14 AM [facility] BASIC METABOLIC PANEL (fasting) SERUM Specimen Type: SERUM No comment entered. Ordering Provider: DARLIN BALDWIN Report Released Date/Time: May 21, 2024 08:43 AM Reporting Lab: [address] [address] Performing Lab: [address] [address] UREA NITROGEN 22 mg/dL 8-26 GLUCOSE 114 mg/dL H 65-100 SODIUM 132 mmol/L L 136-145 POTASSIUM 4.8 mmol/L 3.5-5.1 CHLORIDE 100 mmol/L 98-107 CO2 25 meq/L 23-31 CALCIUM 9.1 mg/dL 8.8-10 CREATININE, Serum 1.06 mg/dL 0.72-1.25 eGFR(CKD-EPI 2020) 73 mL/min >60 Jul 17, 2024 11:14 AM [facility] LIVER FUNCTION SERUM Specimen Type: SERUM No comment entered. Ordering Provider: DARLIN BALDWIN Report Released Date/Time: May 21, 2024 08:43 AM Reporting Lab: [address] [address] Performing Lab: [address] [address] PROTEIN,TOTAL 7.5 g/dL 6.4-8.3 ALBUMIN 3.4 g/dL 3.2-4.6 ALKALINE PHOSPHATASE 112 U/L 40-150 AST 30 U/L 5-34 ALT 15 U/L BILIRUBIN, TOTAL 0.3 mg/dL 0.2-1.2 Jul 17, 2024 11:14 AM [facility] HEMOGLOBIN A1C PANEL BLOOD Specimen T ype: [...] May 21, 2024 08:43 AM Reporting [facility] [address] [address] Per[facility]: [facility] [address] [address] HEMOGLOBIN A1C 7.5 H 4.0-5.6 Jul 17, 2024 11:14 AM [facility] TSH SERUM Sp ecimen Type: SERUM No comment entered. Ordering Provider: DARLIN BALDWIN Report Released Date/Time: May 21, 2024 08:43 AM Reporting [facility] [address] Performing Lab: [facility] [address] TSH 1.19 u[IU]/mL 0.35-4.94 Jul 17, 2024 11:14 AM [facility] LIPID PANEL FASTING SERUM Specimen Ty pe: SERUM No comment entered. Ordering Provider: DARLIN BALDWIN Report Released Date/Time: May 21, 2024 08:43 AM Reporting Lab: [facility] [address] Performing [facility]: [facility] [address] [address] CHOLESTEROL 157 mg/dL TRIGLYCERIDE 74 mg/dL 0-150 LDL calculated 73 mg/dL 0-129 CHOL/HDL 2.3 HDL CHOLESTEROL 69 mg/dL >40 Jul 17, 2024 11:14 AM [facility] PSA SERUM Sp ecimen Type: SERUM No comment entered. Ordering Provider: DARLIN BALDWIN Report Released Date/Time: May 21, 2024 08:43 AM Reporting Lab: [facility] [address] [facility] [address] Performing Lab: [facility] [address] [facility] [address] PSA 1.0 ng/mL 0.0-4.0 Social History: Smoking Status (Most current) and Tobacco Use (All prior to encounter date) This section includes the most current, and the historical, smoking and tobacco- related health factors from the [place] facility where the Encounter took place. Current Smoking Status This section includes the most current smoking, or tobacco-related health factor, from the [place] facility where the Encounter took place. Date/Time Current Smoking Status Comment Facil ity Jan 29, 2024 10:34 AM [place]-TOBACCO NEVER USED [facility] Tobacco Use History This section includes a history of the smoking, or tobacco-related health factors, that were collected on or before the date of the Encounter. The data comes from the [place] facility where the Encounter took place. Date/Time Smoking Status/Tobacco Use Comment F acility Dec 19, 2019 12:00 PM [place] [facility] Dec 19, 2019 12:00 PM VA-TOBACCO QUIT 1 TO < 5 YRS [facility] Advance Directives: All historical and current Section Date Range: From patient's date of to the date document was created. This section includes ALL of a patient's completed or amended [place] Advance and Rescinded Directives. The entries below indicate that a directive exists for the patient, but an actual copy is not included with this document. The data comes from all [place] facilities. Date Advance Directives Provider Source Mar 29, 2021 ADVANCE DIRECTIVE [facility] Radiology Reports: +/- 30 days of the [...] the Encounter. The data comes from all [place] treatment facilities. Date/Time Radiology Report Provider Source August 06, 2024 10:50 AM CHEST (2 VIEWS): RICO KHAN [id number] -1950 M Exm Date: AUGUST 06, 2024@10:50 Req Phys: ERIZENASAWYERDAVIDJASPER Jang Pat Loc: [facility]/NO/BLIND REHAB TELE (Req Img Loc: [facility]/BUILDING 1 Service: [place] [address] (Case [id number] COMPLETE) CHEST (2 VIEWS) (RAD Detailed) CPT:20508 Reason for Study: Recent pneumonia Clinical History: IDDM, Report Status: Verified Date Reported: AUGUST 06, 2024 Date Verified: AUGUST 06, 2024 Corporate Travel Manager E-Sig:/ES/BETTY BURT JR Report: Study: PA and [...] Primary Interpreting Staff: BETTY BURT JR, Radiologist (Corporate Travel Manager) /BETTY LEIVA JR [facility] Encounter Notes: All associated encounter notes This section contains the clinical notes associated to the Encounter. Date/Time Encounter Note(s) Provider Source August 06, 2024 11:57 AM OPTOMETRY NOTE: LOCAL TITLE: OPTOMETRY NOTE STANDARD TITLE: OPTOMETRY NOTE DATE OF NOTE: AUGUST 06, 2024@11:57 ENTRY DATE: AUGUST 06, 2024@11:57:04 AUTHOR: MARIANA BAUMAN EXP COSIGNER: URGENCY: STATUS: COMPLETED Eye Examination for: RICO KHAN, 74 year old WHITE MALE MHx: Code Description Z87.891 Former smoker ([facility] [id number]) G25.0 Essential tremor ([facility] [id number]) D50.9 ARUNA - Iron deficiency anemia ([facility] [id number]) Z77.29 Exposure to potentially hazardous substance ([facility] [id number]) M17.11 Osteoarthritis of right knee joint ([facility] [id number]) 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 ([facility] [id number]) E11.9 Diabetes mellitus type 2 ([facility] [id number]) K21.00 Gastroesophageal reflux disease with esophagitis ([facility] [id number]) H54.8 Legal blindness ([facility] [id number]) E11.40 Diabetic peripheral neuropathy ([facility] [id number]) H25.13 Age-related nuclear cataracts of both eyes ([facility] [id number]) E11.3299 Nonproliferative diabetic retinopathy ([facility] [id number]) H35.30 Myopic macular degeneration ([facility] [id number]) E11.42 Essential hypertension ([facility] [id number]) E78.2 Mixed hyperlipidaemia ([facility] [id number]) I10. Depressive disorder ([facility] [id number]) Z98.890 History of surgery ([facility] 647804882) Z12.11 Screening for malignant neoplasm of colon done ([facility] [id number]) SYSTEMIC MEDICATIONS/OCULAR MEDICATIONS: Active Outpatient Medications (including Supplies): Active Outpatient Medications Status 1) ADHESIVE REMOVER SPRAY H#4055 SUFFICIENT AMOUNT TOPICALLY ACTIVE EVERY 10 DAYS 2) AMLODIPINE BESYLATE 5MG TAB TAKE ONE TABLET BY MOUTH ONCE ACTIVE DAILY FOR BLOOD PRESSURE/HEART, DO NOT TAKE WITH GRAPEFRUIT JUICE Indication: FOR HIGH BLOOD PRESSURE 3) ATORVASTATIN CALCIUM 80MG TAB TAKE ONE TABLET BY MOUTH DAY ACTIVE FOR CHOLESTEROL 4) EMPAGLIFLOZIN 25MG TAB TAKE ONE TABLET BY MOUTH ONCE DAILY ACTIVE Indication: FOR TYPE 2 DIABETES MELLITUS 5) EZETIMIBE 10MG TAB TAKE ONE TABLET BY MOUTH ONCE DAILY TO ACTIVE LOWER CHOLESTEROL Indication: FOR HIGH CHOLESTEROL 6) FERROUS SULFATE 325MG TAB TAKE ONE TABLET BY MOUTH ONCE ACTIVE DAILY Indication: TO SUPPLEMENT IRON 7) FLUTICASONE PROP 50MCG 120D NASAL INHL INSTILL 1 SPRAY ACTIVE TOPICALLY EVERY 10 DAYS Indication: TO PREVENT IRRITATION FROM SENSOR 8) GABAPENTIN 300MG CAP TAKE ONE CAPSULE BY MOUTH THREE TIMES A ACTIVE DAY CHANGE FROM TABLETS Indication: FOR NERVE PAIN 9) GLUCOSE 4GM CHEW TAB CHEW FOUR TABLETS BY MOUTH ONE TIME ACTIVE NEEDED Indication: FOR LOW BLOOD SUGAR 10) GLUCOSE SENSOR DEXCOM G7 USE 1 SENSOR DIRECTED EVERY 10 ACTIVE DAYS Indication: DIABETES 11) INSULIN,GLARGINE 100 UNT/ML 3ML SOLOSTAR INJECT 8 UNITS ACTIVE SUBCUTANEOUSLY ONCE DAILY Indication: FOR DIABETES 12) LISINOPRIL 10MG TAB TAKE ONE TABLET BY MOUTH ONCE DAILY TO ACTIVE CONTROL BLOOD PRESSURE Indication: FOR HIGH BLOOD PRESSURE 13) MAGNESIUM OXIDE 400MG TAB TAKE ONE TABLET BY MOUTH TWICE ACTIVE DAILY Indication: FOR MAGNESIUM SUPPLEMENTATION 14) NEEDLE,PEN 32G,4MM USE 1 NEEDLE SUBCUTANEOUSLY ONCE DAILY ACTIVE FOR USE WITH PEN DEVICE 15) OMEPRAZOLE 20MG EC CAP TAKE ONE CAPSULE BY MOUTH EVERY ACTIVE MORNING 30 MINUTES BEFORE BREAKFAST 16) PRIMIDONE 50MG TAB TAKE ONE TABLET BY MOUTH AT BEDTIME ACTIVE Indication: TREMOR 17) SITAGLIPTIN (EQV-ZITUVIO) 100MG TAB TAKE ONE TABLET BY MOUTH ACTIVE ONCE DAILY Indication: DIABETES 18) TAMSULOSIN HCL 0.4MG CAP TAKE ONE CAPSULE BY MOUTH AT ACTIVE BEDTIME 19) TRANSPARENT DRESSING 2 3/8IN X 2 3/4IN APPLY 1 DRESSING ACTIVE TOPICALLY EVERY 14 DAYS ALLERGIES: Patient has answered NKA VITALS (most recent, as listed in the electronic record): B/P: 150/80 (06/26/2024 10:34) Pulse: 93 (06/26/2024 10:34) Temperature: 97.6 F [36.4 C] (01/29/2024 10:33) Weight: 120 lb [54.43 kg] (06/26/2024 10:34) Height: 65 in [165.1 cm] (01/13/2022 10:17) BMI: BMI: 20.0 PERTINENT LABS: HEMOGLOBIN A1C TREND Collection DT Spec HGBA1c 07/17/2024 11:14 BLOOD 7.5 H 04/15/2024 10:03 BLOOD 8.6 H 12/05/2023 13:20 BLOOD 7.8 H 07/20/2023 09:14 BLOOD 7.2 H 05/15/2023 10:56 BLOOD 7.1 H Forward from note, checked by Attending Optometry Instrument Mechanic [employer]apons System Attending Provider Note: Date of Last Exam: Location: [facility] Chief Complaint:Complains of a noticeable change for the worse in reading* distance, x 6 months. Was hospitalized 1 month ago for pneumonia. They found a hernia too. Patient using walking stick well. HISTORY AND REVIEW OF SYSTEMS: OHx/HPI: 1. 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 T2DM s retinopathy 3. SHIRLEY OU 4. NSC OU (1+NS) (-) Pain: (-) ANGULO: (-) Diplopia: (-) Flashes: (-) Floaters: (-) Amaurosis Fugax/Tia's: (-) Eye Injury: (-) Eye Surgery: (-) TBI FOHx: (-) Glaucoma (-) ARMD (+) Blindness: mother, maternal half-sister, maternal great uncle, son DIABEIC: Yes LAST A1C: PERTINENT LABS: HEMOGLOBIN A1C TREND Collection DT Spec HGBA1c 07/17/2024 11:14 BLOOD 7.5 H 04/15/2024 10:03 BLOOD 8.6 H 12/05/2023 13:20 BLOOD 7.8 H 07/20/2023 09:14 BLOOD 7.2 H 05/15/2023 10:56 BLOOD 7.1 H NEW ALLERGIES TO REPORT: No EYE MEDICATION(S): CURRENT RX WITH BCVA: ( ?old/ yellow tint ) Current Rx with last BCVA: OD: +2.25-2.04g204 20/25 OS: +2.75-2.39h991 20/30+1 DVA: ( )SC (x)CC ( )Phoropter ( )CL OD: 20/40- / +2 searching PH NI OS: 20/40- / +2 searching Ph NI *NVA OU: 20/40- Neal card at 22 old readers (confirmed Lensometry *(says recent replacement readers 05/2024 are wrong ) MANIFEST REFRACTION(MRx):Defer. To see Low Vis soon CVF: Appear FTFC OU EOMS: Appear Full OU PUPILS: Appear ERRL(-)APD INTRAOCULAR PRESSURE (IOP) METHOD: Goldmann Time:11:25 OD:14 OS:14 ANTERIOR CHAMBER (AC): Penlight or slit lamp (if available) exam appears unremarkable. Pupils are dilated. Dilation and driving precautions reviewed with patient and patient expresses understanding. Medication: 1% Tropicamide, 2.5% Phenylephrine OU Time:11:26 Visual Imaging Performed Today:scheduled, NOT done today. Patient ran late for chest x ray. Additional Comments:Patient got replacement readers 05/2024. Says they are wrong. Understands will evaluate reading difficulty in LV eval SLE: Lids/Lashes: dermatochalasis OU Conjunctiva: white and quiet bulbar conj OU quiet palpebral conj OU Corneas: clear OU Iris: flat and clear OU, (-)NVI OU AC: D & Q OU Angles: 3x3 OU Dilated Fundus Exam: Vit: syneresis OU Lens: 2+ NSC OU, tr ACC OU, tr-1+ PCC OS>OD C/D (Size and Rim Description) OD 0.50 pink and healthy OS 0.40 pink and healthy (-)NVD OU PPole OD patches of atrophy/hypopigmentation, pinpoint areas hyperpigmentation OS patches of atrophy/hypopigmentation, pinpoint areas hyperpigmentation (-)flecks,pisciform lesions, bone spicules (-)DBH/CWS/TAMI/VB Macula OD flat and clear OS flat and clear (-)CSME OU A/V: normal caliber OU Periphery: flat and intact (-)NVE, holes, tears, detachments 360 OU Assessment/Plan: 1. 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 Multiple goals for upcoming LV eval. Reading is good with cctv. finds dillon tags and labels difficult, does not take stand mag due to size. Recommend trial of HHM vs small PVM. Reports he has lost color vision completely now. -Pt ed re today's findings - repeated back the plan and education. -Monitor 2. Type II Diabetes without evidence of retinopathy or macular edema OU. -Pt ed re today's findings and the possible ocular health and visual complications associated with diabetes as well as importance of attending follow up appointments -Encouraged blood sugar, blood pressure and lipid control as directed by provider managing diabetes. -Pt ed to report any vision changes OSMANI. -[place] repeated back the plan and education. -Monitor 3. Dry Eye Syndrome OU - symptomatic -Pt ed re today's findings -Continue Artificial Tears QID OU -[place] repeated back the plan and education. -Monitor 4. Combined Cataracts OU - not visually significant at present -Pt ed re today's findings and the importance of UV protection -Pt ed cataracts may cause reduction of BCVA and symptoms of glare -RTC sooner if vision declines or interferes with ADLs -[place] repeated back the plan and education. -Monitor RTC 1 year or earlier PRN Glasses adjusted/repaired in office: () Yes (x) No If yes, how many pairs: Education: Diabetes: Patient was educated regarding diabetes and related ocular complications including retinopathy and cataract formation as well as other related systemic complications. The importance of good blood sugar control, blood sugar testing as recommended by their PCP and the importance of timely follow up were all emphasized. Medication Reconciliation: Outpatient: Has the patient been taking medications as documented in the EMLR? YES: The patient has been taking medications as documented in the EMLR. Essential Medication List for Review used to complete this medication reconciliation. INCLUDED IN THIS LIST: Alphabetical list of active outpatient prescriptions dispensed from this [facility] (local) and dispensed from another VA or DoD facility (remote) as well as inpatient orders (local, pending and active), local clinic medications, locally documented non-VA medications, and local prescriptions that have or been discontinued in the past 90 days. - All changes in medications, including all non-VA/Herbal/OTC medications were entered into CPRS. - If there were any medications the patient should no longer take, they were discontinued. - The patient/caregiver was instructed to update this list, discard old lists, and take this list to the next appointment, whether with a VA or non-VA provider. Medication List: JLV Link Data on this list may not be complete. Please check JLV. Allergies/ADRs (Tool #5) FACILITY ALLERGY/ADR -------- No Remote Allergy/ADR Data available for this patient [place] [facility] [place] [facility] No Known Allergies Med. Reconciliation (Tool #1) INCLUDED IN THIS LIST: Alphabetical list of active outpatient prescriptions dispensed from this VA (local) and dispensed from another VA or DoD facility (remote) as well as inpatient orders (local pending and active), local clinic medications, locally documented non-VA medications, and local prescriptions that have or been discontinued in the past 90 days. Non-VA Meds Last Documented On: Data not found NOTE The display of VA prescriptions dispensed from another VA or DoD facility (remote) is limited to active outpatient prescription entries matched to National Drug File at the originating site and may not include some items such as investigational drugs, compounds, etc. NOT INCLUDED IN THIS LIST: Medications self-entered by the patient into personal health records (i.e. [employer]) are NOT included in this list. Non-VA medications documented outside this [place], remote inpatient orders (regardless of status) and remote clinic medications are NOT included in this list. The patient and provider must always discuss medications the patient is taking, regardless of where the medication was dispensed or obtained. OUTPT AMLODIPINE BESYLATE 5MG TAB (Status = Discontinued) TAKE ONE TABLET BY MOUTH ONCE DAILY FOR BLOOD PRESSURE/HEART, DO NOT TAKE WITH GRAPEFRUIT JUICE Rx# [id number] Last Released: 05/08/24 Qty/Days Supply: Rx Expiration Date: 01/29/25 Refills Remainin Indication: FOR HIGH BLOOD PRESSURE OUTPT AMLODIPINE BESYLATE 5MG TAB (Status = Active) TAKE ONE TABLET BY MOUTH ONCE DAILY FOR BLOOD PRESSURE/HEART, DO NOT TAKE WITH GRAPEFRUIT JUICE Rx# [id number] Last Released: 07/26/24 Qty/Days Supply: 60 Rx Expiration Date: 07/25/25 Refills Remainin Indication: FOR HIGH BLOOD PRESSURE OUTPT ATORVASTATIN CALCIUM 80MG TAB (Status = Active) TAKE ONE TABLET BY MOUTH DAY FOR CHOLESTEROL Rx# [id number] Last Released: 07/10/24 Qty/Days Supply: Rx Expiration Date: 09/01/24 Refills Remainin OUTPT AZITHROMYCIN 250MG TAB (Status = ) TAKE TWO TABLETS BY MOUTH EVERY 24 HOURS Rx# [id number] Last Released: 06/21/24 Qty/Days Supply: 09/03 Rx Expiration Date: 07/21/24 Refills Remainin OUTPT AZITHROMYCIN 500MG TAB (Status = Discontinued) TAKE ONE TABLET BY MOUTH EVERY 24 HOURS Rx# [id number] Last Released: Qty/Days Supply: 06/03 Rx Expiration Date: 07/20/24 Refills Remainin OUTPT CEFUROXIME AXETIL 500MG TAB (Status = ) TAKE ONE TABLET BY MOUTH EVERY 12 HOURS Rx# [id number] Last Released: 06/21/24 Qty/Days Supply: 14/10 Rx Expiration Date: 07/20/24 Refills Remainin OUTPT EMPAGLIFLOZIN 25MG TAB (Status = Active) TAKE ONE TABLET BY MOUTH ONCE DAILY FOR TYPE 2 DIABETES MELLITUS Rx# [id number] Last Released: 07/23/24 Qty/Days Supply: Rx Expiration Date: 09/01/24 Refills Remainin Indication: FOR TYPE 2 DIABETES MELLITUS OUTPT EZETIMIBE 10MG TAB (Status = Active) TAKE ONE TABLET BY MOUTH ONCE DAILY TO LOWER CHOLESTEROL Rx# [id number] Last Released: 07/22/24 Qty/Days Supply: 90 Rx Expiration Date: 04/18/25 Refills Remainin Indication: FOR HIGH CHOLESTEROL OUTPT FERROUS SULFATE 325MG TAB (Status = Active) TAKE ONE TABLET BY MOUTH ONCE DAILY TO SUPPLEMENT IRON Rx# [id number] Last Released: 05/21/24 Qty/Days Supply: Rx Expiration Date: 02/02/25 Refills Remainin Indication: TO SUPPLEMENT IRON OUTPT FLUTICASONE PROP 50MCG 120D NASAL INHL (Status = Active) INSTILL 1 SPRAY TOPICALLY EVERY 10 DAYS TO PREVENT IRRITATION FROM SENSOR Rx# [id number] Last Released: 09/04/23 Qty/Days Supply: Rx Expiration Date: 09/01/24 Refills Remainin Indication: TO PREVENT IRRITATION FROM SENSOR OUTPT GABAPENTIN 300MG CAP (Status = Active) TAKE ONE CAPSULE BY MOUTH THREE TIMES A DAY FOR NERVE PAIN CHANGE FROM TABLETS Rx# [id number] Last Released: 05/21/24 Qty/Days Supply: Rx Expiration Date: 09/01/24 Refills Remainin Indication: FOR NERVE PAIN OUTPT GLUCOSE 4GM CHEW TAB (Status = Active) CHEW FOUR TABLETS BY MOUTH ONE TIME NEEDED FOR LOW BLOOD SUGAR Rx# [id number] Last Released: 03/13/24 Qty/Days Supply: Rx Expiration Date: 09/01/24 Refills Remainin Indication: FOR LOW BLOOD SUGAR OUTPT INSULIN,GLARGINE 100 UNT/ML 3ML SOLOSTAR (Status = Active) INJECT 8 UNITS SUBCUTANEOUSLY ONCE DAILY FOR DIABETES Rx# [id number] Last Released: 07/10/24 Qty/Days Supply: Rx Expiration Date: 07/10/25 Refills Remainin Indication: FOR DIABETES OUTPT INSULIN,GLARGINE-YFGN 100UNIT/ML PEN 3ML (Status = Discontinued) INJECT 6 UNITS SUBCUTANEOUSLY ONCE DAILY FOR DIABETES Rx# [id number] Last Released: 02/19/24 Qty/Days Supply: Rx Expiration Date: 12/05/24 Refills Remainin Indication: FOR DIABETES OUTPT LISINOPRIL 10MG TAB (Status = Active) TAKE ONE TABLET BY MOUTH ONCE DAILY TO CONTROL BLOOD PRESSURE Rx# [id number] Last Released: 06/27/24 Qty/Days Supply: Rx Expiration Date: 06/27/25 Refills Remainin Indication: FOR HIGH BLOOD PRESSURE OUTPT LISINOPRIL 20MG TAB (Status = Discontinued) TAKE ONE TABLET BY MOUTH ONCE DAILY TO CONTROL BLOOD PRESSURE Rx# [id number] Last Released: 04/18/24 Qty/Days Supply: Rx Expiration Date: 09/01/24 Refills Remainin Indication: FOR HIGH BLOOD PRESSURE OUTPT MAGNESIUM OXIDE 250MG TAB (Status = Discontinued) TAKE ONE TABLET BY MOUTH ONCE DAILY Rx# [id number] Last Released: 03/11/24 Qty/Days Supply: Rx Expiration Date: 10/02/24 Refills Remainin Indication: FOR MAGNESIUM SUPPLEMENTATION OUTPT MAGNESIUM OXIDE 400MG TAB (Status = Discontinued) TAKE ONE TABLET BY MOUTH TWICE DAILY Rx# [id number] Last Released: 06/21/24 Qty/Days Supply: 14/10 Rx Expiration Date: 07/20/24 Refills Remainin OUTPT MAGNESIUM OXIDE 400MG TAB (Status = Active) TAKE ONE TABLET BY MOUTH TWICE DAILY Rx# [id number] Last Released: 06/27/24 Qty/Days Supply: Rx Expiration Date: 06/27/25 Refills Remainin Indication: FOR MAGNESIUM SUPPLEMENTATION OUTPT OMEPRAZOLE 20MG EC CAP (Status = Active) TAKE ONE CAPSULE BY MOUTH EVERY MORNING 30 MINUTES BEFORE BREAKFAST Rx# [id number] Last Released: 04/29/24 Qty/Days Supply: Rx Expiration Date: 04/18/25 Refills Remainin OUTPT PRIMIDONE 50MG TAB (Status = Active) TAKE ONE TABLET BY MOUTH AT BEDTIME TREMOR Rx# [id number] Last Released: 07/22/24 Qty/Days Supply: Rx Expiration Date: 04/06/25 Refills Remainin Indication: TREMOR OUTPT SITAGLIPTIN (EQV-ZITUVIO) 100MG TAB (Status = Active) TAKE ONE TABLET BY MOUTH ONCE DAILY DIABETES Rx# [id number] Last Released: 06/14/24 Qty/Days Supply: Rx Expiration Date: 03/20/25 Refills Remainin Indication: DIABETES OUTPT TAMSULOSIN HCL 0.4MG CAP (Status = Active) TAKE ONE CAPSULE BY MOUTH AT BEDTIME Rx# [id number] Last Released: 06/21/24 Qty/Days Supply: 60 Rx Expiration Date: 08/19/24 Refills Remainin SUPPLIES OUTPT ADHESIVE REMOVER SPRAY H#7731 (Status = Active) SUFFICIENT AMOUNT TOPICALLY EVERY 10 DAYS Rx# [id number] Last Released: 09/05/23 Qty/Days Supply: Rx Expiration Date: 09/01/24 Refills Remainin OUTPT ALCOHOL PREP PAD (Status = ) USE 1 PAD TOPICALLY THREE TIMES A DAY TO CLEAN SKIN FOR INJECTION ETC Rx# [id number] Last Released: 02/15/24 Qty/Days Supply: Rx Expiration Date: 05/12/24 Refills Remainin OUTPT GLUCOSE SENSOR DEXCOM G7 (Status = Active) USE 1 SENSOR DIRECTED EVERY 10 DAYS DIABETES Rx# [id number] Last Released: 07/18/24 Qty/Days Supply: Rx Expiration Date: 03/09/25 Refills Remainin Indication: DIABETES OUTPT NEEDLE,PEN 32G,4MM (Status = Discontinued) USE 1 NEEDLE SUBCUTANEOUSLY ONCE DAILY FOR USE WITH PEN DEVICE Rx# [id number] Last Released: 02/15/24 Qty/Days Supply: Rx Expiration Date: 05/12/24 Refills Remainin OUTPT NEEDLE,PEN 32G,4MM (Status = Active) USE 1 NEEDLE SUBCUTANEOUSLY ONCE DAILY FOR USE WITH PEN DEVICE Rx# [id number] Last Released: 07/11/24 Qty/Days Supply: 100 Rx Expiration Date: 07/10/25 Refills Remainin OUTPT TRANSPARENT DRESSING 2 3/8IN X 2 3/4IN (Status = Active) APPLY 1 DRESSING TOPICALLY EVERY 14 DAYS Rx# [id number] Last Released: 11/29/23 Qty/Days Supply: Rx Expiration Date: 09/01/24 Refills Remainin PHARMACY TERMS AND POSSIBLE PATIENT ACTIONS INPT = [place] order IV = [place] intravenous medication OUTPT = [place] outpatient prescription PHARMACY POSSIBLE PATIENT TERMS EXPLANATION ACTIONS -------- ---- ACTIVE A prescription that can be If you have refills, filled at the local [place] pharmacy. you may request a refill of this prescription from your [place] pharmacy. CLINIC A medication you received during If you have questions a visit to a [place] clinic or about this medication emergency department. contact your [place] healthcare team. DISCONTINUED A prescription your provider has Contact your VA stopped. It is no longer healthcare team if you available to be sent to you or need more of this picked up at the [place] pharmacy medication. window. A prescription which is too old Contact your VA to fill. This does not refer to healthcare team if you the expiration date of the need more of this medication in the container. medication. NON-VA A medication that came from If this medication someplace other than a VA information is pharmacy. This may be a incorrect or out of prescription from either the VA date, please tell your or non VA providers that was VA healthcare team. filled outside the VA. Or, it may be an [id number] (OTC), herbal, dietary supplements or sample medication. ON HOLD An active prescription that will Contact your VA not be filled until pharmacy pharmacy when you need resolves the issue. more of this medication. PARKED An active prescription that will Contact your VA not be filled until the patient pharmacy when you need requests it. this medication. PENDING This prescription order has been If you have been sent to the pharmacy for review instructed to start and is not ready yet. this medication now, contact your VA pharmacy. SUSPENDED An active prescription that is Contact your VA not scheduled to be filled yet. pharmacy if you need You should receive it before this medication now. you run out. (x) Printed Medication Reconciliation List Offered and Declined by () Medication Reconciliation List Printed for [place] at Exam () Optometry HT Please Print and Mail Copy of Medication Reconciliation List () AMSA Please Print and Mail Copy of Medication Reconciliation List /es/ MARIANA BAUMAN OD AIR BOX TESTER Signed: 08/06/2024 13:21 MARIANA BAUMAN [place] [facility] [place] [facility] August 06, 2024 08:51 AM OPTOMETRY SAND [employer] OPERATOR NOTE: LOCAL TITLE: OPTOMETRY S[employer] OPERATOR NOTE STANDARD TITLE: OPTOMETRY S[employer] OPERATOR NOTE DATE OF NOTE: AUGUST 06, 2024@08:51 ENTRY DATE: AUGUST 06, 2024@08:51:47 AUTHOR: DUTCH THOMPSON EXP COSIGNER: URGENCY: STATUS: COMPLETED Active problems - Computerized Problem List is the source for the followin. Former smoker 2. Essential tremor 3. ARUNA - Iron deficiency anemia 4. Exposure to potentially hazardous substance ([facility] [id number]) 5. Osteoarthritis of right knee joint 6. Chronic kidney disease stage 3 due to type 2 diabetes mellitus 7. Diabetes mellitus type 2 8. Gastroesophageal reflux disease with esophagitis 9. Legal blindness 10. Diabetic peripheral neuropathy 11. Age-related nuclear cataracts of both eyes 12. Nonproliferative diabetic retinopathy 13. Myopic macular degeneration 14. Essential hypertension 15. Mixed hyperlipidaemia 16. Depressive disorder 17. History of surgery 18. Screening for malignant neoplasm of colon done Active Outpatient Medications (including Supplies): Active Outpatient Medications Status 1) ADHESIVE REMOVER SPRAY H#7702 SUFFICIENT AMOUNT TOPICALLY ACTIVE EVERY 10 DAYS 2) AMLODIPINE BESYLATE 5MG TAB TAKE ONE TABLET BY MOUTH ONCE ACTIVE DAILY FOR BLOOD PRESSURE/HEART, DO NOT TAKE WITH GRAPEFRUIT JUICE Indication: FOR HIGH BLOOD PRESSURE 3) ATORVASTATIN CALCIUM 80MG TAB TAKE ONE TABLET BY MOUTH DAY ACTIVE FOR CHOLESTEROL 4) EMPAGLIFLOZIN 25MG TAB TAKE ONE TABLET BY MOUTH ONCE DAILY ACTIVE Indication: FOR TYPE 2 DIABETES MELLITUS 5) EZETIMIBE 10MG TAB TAKE ONE TABLET BY MOUTH ONCE DAILY TO ACTIVE LOWER CHOLESTEROL Indication: FOR HIGH CHOLESTEROL 6) FERROUS SULFATE 325MG TAB TAKE ONE TABLET BY MOUTH ONCE ACTIVE DAILY Indication: TO SUPPLEMENT IRON 7) FLUTICASONE PROP 50MCG 120D NASAL INHL INSTILL 1 SPRAY ACTIVE TOPICALLY EVERY 10 DAYS Indication: TO PREVENT IRRITATION FROM SENSOR 8) GABAPENTIN 300MG CAP TAKE ONE CAPSULE BY MOUTH THREE TIMES A ACTIVE DAY CHANGE FROM TABLETS Indication: FOR NERVE PAIN 9) GLUCOSE 4GM CHEW TAB CHEW FOUR TABLETS BY MOUTH ONE TIME ACTIVE NEEDED Indication: FOR LOW BLOOD SUGAR 10) GLUCOSE SENSOR DEXCOM G7 USE 1 SENSOR DIRECTED EVERY 10 ACTIVE DAYS Indication: DIABETES 11) INSULIN,GLARGINE 100 UNT/ML 3ML SOLOSTAR INJECT 8 UNITS ACTIVE SUBCUTANEOUSLY ONCE DAILY Indication: FOR DIABETES 12) LISINOPRIL 10MG TAB TAKE ONE TABLET BY MOUTH ONCE DAILY TO ACTIVE CONTROL BLOOD PRESSURE Indication: FOR HIGH BLOOD PRESSURE 13) MAGNESIUM OXIDE 400MG TAB TAKE ONE TABLET BY MOUTH TWICE ACTIVE DAILY Indication: FOR MAGNESIUM SUPPLEMENTATION 14) NEEDLE,PEN 32G,4MM USE 1 NEEDLE SUBCUTANEOUSLY ONCE DAILY ACTIVE FOR USE WITH PEN DEVICE 15) OMEPRAZOLE 20MG EC CAP TAKE ONE CAPSULE BY MOUTH EVERY ACTIVE MORNING 30 MINUTES BEFORE BREAKFAST 16) PRIMIDONE 50MG TAB TAKE ONE TABLET BY MOUTH AT BEDTIME ACTIVE Indication: TREMOR 17) SITAGLIPTIN (EQV-ZITUVIO) 100MG TAB TAKE ONE TABLET BY MOUTH ACTIVE ONCE DAILY Indication: DIABETES 18) TAMSULOSIN HCL 0.4MG CAP TAKE ONE CAPSULE BY MOUTH AT ACTIVE BEDTIME 19) TRANSPARENT DRESSING 2 3/8IN X 2 3/4IN APPLY 1 DRESSING ACTIVE TOPICALLY EVERY 14 DAYS Allergies: Patient has answered NKA All medications including those prescribed by outside VA's, community providers, and all OTC meds were reviewed and reconciled with patient to the best of their abilities. This 74 year old MALE is seen today for a CEE. *(Due August 29 for a LVE) Medical, eye, personal, and social history are all reviewed and is contributory or is not contributory to today's visit. Optometry Instrument [employer] Attending Provider Note: Date of Last Exam: Location: [facility] Chief Complaint:Complains of a noticeable change for the worse in reading* distance, x 6 months. Was hospitalized 1 month ago for pneumonia. They found a hernia too. Patient using walking stick well. HISTORY AND REVIEW OF SYSTEMS: OHx/HPI: 1. 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 T2DM s retinopathy 3. SHIRLEY OU 4. NSC OU (1+NS) (-) Pain: (-) ANGULO: (-) Diplopia: (-) Flashes: (-) Floaters: (-) Amaurosis Fugax/Tia's: (-) Eye Injury: (-) Eye Surgery: (-) TBI FOHx: (-) Glaucoma (-) ARMD (+) Blindness: mother, maternal half-sister, maternal great uncle, son DIABEIC: Yes LAST A1C: PERTINENT LABS: HEMOGLOBIN A1C TREND Collection DT Spec HGBA1c 07/17/2024 11:14 BLOOD 7.5 H 04/15/2024 10:03 BLOOD 8.6 H 12/05/2023 13:20 BLOOD 7.8 H 07/20/2023 09:14 BLOOD 7.2 H 05/15/2023 10:56 BLOOD 7.1 H NEW ALLERGIES TO REPORT: No EYE MEDICATION(S): CURRENT RX WITH BCVA: ( ?old/ yellow tint ) Current Rx with last BCVA: OD: +2.25-2.02k883 20/25 OS: +2.75-2.43k281 20/30+1 DVA: ( )SC (x)CC ( )Phoropter ( )CL OD: 20/40- / +2 searching PH NI OS: 20/40- / +2 searching Ph NI *NVA OU: 20/40- Neal card at 22 old readers (confirmed Lensometry *(says recent replacement readers 05/2024 are wrong ) MANIFEST REFRACTION(MRx):Defer. To see Low Vis soon CVF: Appear FTFC OU EOMS: Appear Full OU PUPILS: Appear ERRL(-)APD INTRAOCULAR PRESSURE (IOP) METHOD: Goldmann Time:11:25 OD:14 OS:14 ANTERIOR CHAMBER (AC): Penlight or slit lamp (if available) exam appears unremarkable. Pupils are dilated. Dilation and driving precautions reviewed with patient and patient expresses understanding. Medication: 1% Tropicamide, 2.5% Phenylephrine OU Time:11:26 Visual Imaging Performed Today:scheduled, NOT done today. Patient ran late for chest x ray. Additional Comments:Patient got replacement readers 05/2024. Says they are wrong. /kayla/ DUTCH THOMPSON OPTOMETRY TECH Signed: 08/06/2024 11:30 DUTCH THOMPSON [facility]L [facility]
== END 2024-08-13 10:57 | disposition home or self-care (01) ==
LOC: HO.HGS 10:29
PROVIDERS: PCP General Practice; Visit Provider Surgery
DX: K40.90 Unilateral inguinal hernia, without obstruction or gangrene, not specified as recurrent (principal)
CPT/HCPCS: 99214

== ENCOUNTER → 2024-08-13 10:28 | Outpatient (BNVA) | payer OTHER, SELFPAY | PROVIDERS: PCP General Practice; Visit Provider Surgery | DX: K40.90 Unilateral inguinal hernia, without obstruction or gangrene, not specified as recurrent (principal) | CPT/HCPCS: 99212 ==

== ENCOUNTER 2024-08-14 13:45 | Outpatient (AMB) | payer MEDICARE, SELFPAY ==
--- OUTSIDE RECORDS SUMMARY | 2024-08-14 13:49 | XMS_ITS | Patient Health Record ---
Author Organization [facility] Address [address] [place] [id number] Care Team Providers Care Police Radio Dispatcher Name Role Phone Celeste Mishra Primary Care Provider Jason Zavaleta Unavailable [phone] Reason For Referral No Information Medications Medication [...] Problem Status W/U Status Risk Notes Problem [id number] Encounter for screening for malignant neoplasm of colon (Z12.11) Active confirmed Problem [id number] Diarrhea, unspecified type (R19.7) Active confirmed Plan Of Treatment Future Test Test Name Order Date COLONOSCOPY 12/25/2019 Insurance Providers Payer Name Payer Address Payer Phone Subscriber Number Group Number Insured Name Patient Relationship to Insured Coverage Start Date Coverage End Date [facility] [employer] [address] [place] [id number] [place] KHAN Self - patient is the insured Medical (General) History Medical History History ICD Code IDDM Hypertension Legally Blind - Vision Impaired Denies DE,CVA,Lung disease,renal disease Negative colonoscopy in appr ox. 2009 at [place] and told to do one in 10 years Told of negative stool test at home 2019 --? Cologuard GERD Surgical History Surgery Date(Month/Year)
--- OUTSIDE RECORDS SUMMARY | 2024-08-14 13:49 | XMS_ITS | Encounter Summary ---
Author Name [facility] [facility] [place] Address [address] [place] [address] Care Team Providers Care Compounding And Finishing Supervisor Name Role Phone MATI BOND Primary Care [...] PART B Jan 01, 2014 PART B [id number] [phone] [place] K[place] PATIENT MEDICARE (WNR) MEDICARE (M) PART B Jan 01, 2014 PART B [id number] [place] PATIENT MEDICARE (WNR) MEDICARE (M) PART A May 04, 2013 PART A [id number] [place] PATIENT MEDICARE (WNR) MEDICARE (M) PART A May 04, 2013 PART A [id number] [phone] [id number] [place] PATIENT [facility] (WNR) MEDICARE ADVANTAGE [facility] Apr 03, 2016 [facility] [id number] [phone] PAR[place] KHAN PATIENT Selected Encounter This section includes the information on record at [place] for the Encounter. Date/Time Encounter Type Encounter Description Reason Provider Source Jul 17, 2024 09:00 AM DIAB MANAGE TRN PER [facility] ICD-10-CM E11.9 Type 2 diabetes mellitus without complications MEE PEREZ Maicol Encounter Template Text not used by [place] Assessments - Encounter Diagnoses This section includes the primary and secondary diagnoses documented for the Encounter. Date/Time Primary/Secondary Diagnosis Diagnosis Name Provider Source Jul 17, 2024 11:09 AM PRIMARY Type 2 diabetes mellitus without complications SAURABH PEREZ OSCAR Plan of Treatment: Future Appointments (+ 6 months) and Future Tests (+/- 45 days) The Plan of Treatment section includes future care activities for the patient [facility] [place] [facility] This section includes future appointments and future orders which are active, pending or scheduled. Future Appointments This section includes appointments that were scheduled to occur 6 months from the date of the Encounter, up to a maximum of 20 appointments. The data comes from all [facility]. Appointment Date/Time Appointment Type Appointme nt Facility Name August 06, 2024 10:30 AM [place] [facility] August 06, 2024 11:00 AM [place] [facility] August 06, 2024 11:45 AM [facility] August 29, 2024 11:00 AM AMBULATORY - REHAB MEDICIN [facility] Sep 25, 2024 10:00 AM [facility] Oct 02, 2024 10:30 AM [facility] Oct 16, 2024 10:00 AM [facility] Dec 25, 2024 11:00 AM [facility]ORY - MEDICINE [facility] Active, Pending, and Scheduled Orders This section includes a listing of several types of active, pending, and scheduled orders, including clinic medications orders, diagnostic test orders, procedure orders and consult orders; where the start date of the order is 45 days before the date of the Encounter or 45 days after the date of theEncounter. The data comes from all [facility]. Test Date/Time Test Type Test Details Facility Name Jul 08, 2024 04:41 PM Consult Order [facility]ITY [facility]-NEPHROLOGY Cons Rotor Coil T[employer] [place] [facility] Lab Results: +/- 30 days of the [...] Type Comment Jul 17, 2024 11:14 AM [facility] FERRITIN SERUM Specimen Type: SERUM No comment entered. Ordering Provider: JAYDEN BOND Report Released Date/Time: Jul 04, 2024 10:36 AM Reporting Lab: [address] [address] Performing Lab: [address] [address] FERRITIN 144.3 ng/mL 21.8-274.7 Jul 17, 2024 11:14 AM [facility] CBC AND DIFF (AUTO) BLOOD Specimen Type: BLOO D No comment entered. Ordering Provider: MATI BOND Report Released Date/Time: Jul 04, 2024 10:36 AM Reporting Lab: [address] [address] [facility]forming [facility] [address] WBC 10.23 10*3/uL 4.50-11.00 RBC 3.66 10*6/uL [...] 10*3/uL 0.00-0.00 Jul 17, 2024 11:14 AM [facility] MAGNESIUM SERUM Sp ecimen Type: SERUM No comment entered. Ordering Provider: DARLIN BALDWIN Report Released Date/Time: May 21, 2024 08:43 AM Reporting Lab: [facility] [address] [address] Performing Lab: [facility] [address] [address] MAGNESIUM 1.5 mg/dL L 1.6-2.6 Jul 17, 2024 11:14 AM [facility] VITAMIN D (25-OH) SERUM Specimen Type : SERUM No comment entered. Ordering Provider: DARLIN BALDWIN Report Released Date/Time: May 21, 2024 08:43 AM Reporting Lab: [facility] [place] [address] [address] Performing [facility]: [facility] [address] VITAMIN D (25-OH) 13.6 ng/mL L 20-50 Jul 17, 2024 11:14 AM [facility] IRON & TIBC PANEL SERUM Specimen Type : SERUM No comment entered. Ordering Provider: DARLIN BALDWIN Report Released Date/Time: May 21, 2024 08:43 AM Reporting Lab: [facility] [address] [address] [facility]forming [facility]: [facility] [address] [address] TIBC 268 ug/dL 204-475 IRON 76 ug/dL 65-175 Transferrin Saturation 28.4 15-45 Transferrin (TRF) 203 mg/dL 180-382 Jul 17, 2024 11:14 AM [facility] TSH SERUM Sp ecimen Type: SERUM No comment entered. Ordering Provider: DARLIN BALDWIN Report Released Date/Time: May 21, 2024 08:43 AM Reporting Lab: [address] [address] Performing Lab: [address] [address] TSH 1.19 u[IU]/mL 0.35-4.94 Jul 17, 2024 11:14 AM [facility] HEMOGLOBIN A1C PANEL BLOOD Specimen T ype: [...] May 21, 2024 08:43 AM Reporting Lab: [address] [address] Performing Lab: [address] [address] HEMOGLOBIN A1C 7.5 H 4.0-5.6 Jul 17, 2024 11:14 AM [facility] BASIC METABOLIC PANEL (fasting) SERUM Specimen Type: SERUM No comment entered. Ordering Provider: DARLIN BALDWIN Report Released Date/Time: May 21, 2024 08:43 AM Reporting Lab: [address] [address] Performing Lab: [address] [address] UREA NITROGEN 22 mg/dL 8-26 GLUCOSE 114 mg/dL H 65-100 SODIUM 132 mmol/L L 136-145 POTASSIUM 4.8 mmol/L 3.5-5.1 CHLORIDE 100 mmol/L 98-107 CO2 25 meq/L 23-31 CALCIUM 9.1 mg/dL 8.8-10 CREATININE, Serum 1.06 mg/dL 0.72-1.25 eGFR(CKD-EPI 2020) 73 mL/min >60 Jul 17, 2024 11:14 AM [facility] LIVER FUNCTION SERUM Specimen Type: SERUM No comment entered. Ordering Provider: DARLIN BALDWIN Report Released Date/Time: May 21, 2024 08:43 AM Reporting Lab: [facility] [address] [address] Performing Lab: [address] [address] PROTEIN,TOTAL 7.5 g/dL 6.4-8.3 ALBUMIN 3.4 g/dL 3.2-4.6 ALKALINE PHOSPHATASE 112 U/L 40-150 AST 30 U/L 5-34 ALT 15 U/L BILIRUBIN, TOTAL 0.3 mg/dL 0.2-1.2 Jul 17, 2024 11:14 AM [facility] LIPID PANEL FASTING SERUM Specimen Ty pe: SERUM No comment entered. Ordering Provider: DARLIN BALDWIN Report Released Date/Time: May 21, 2024 08:43 AM Reporting Lab: [facility] [address] [address] Performing Lab: [facility] [address] [address] CHOLESTEROL 157 mg/dL TRIGLYCERIDE 74 mg/dL 0-150 LDL calculated 73 mg/dL 0-129 CHOL/HDL 2.3 HDL CHOLESTEROL 69 mg/dL >40 Jul 17, 2024 11:14 AM [facility] PSA SERUM Sp ecimen Type: SERUM No comment entered. Ordering Provider: DARLIN BALDWIN Report Released Date/Time: May 21, 2024 08:43 AM Reporting [facility]: [facility] [address] [address] Performing [facility]: [facility] [address] [address] PSA 1.0 ng/mL 0.0-4.0 Social History: Smoking [...] ity Jan 20, 2023 10:00 AM VA-TOBACCO QUIT 15 YRS OR MORE [facility] Tobacco Use History This section includes a history of the smoking, or tobacco-related health factors, that were collected on or before the date of the Encounter. The data comes from the [place] facility where the Encounter took place. Date/Time Smoking Status/Tobacco Use Comment F acility Jan 20, 2023 10:00 AM VA-TOBACCO QUIT 15 YRS OR MORE [facility] Mar 29, 2021 11:00 AM VA-TOBACCO FORMER USER [facility] Mar 29, 2021 11:00 AM VA-TOBACCO QUIT 5 TO < 15 YRS [facility] Jul 12, 2018 02:39 PM VA-TOBACCO FORMER USER [facility] Jul 12, 2018 02:39 PM VA-TOBACCO QUIT 15 YRS OR MORE [facility] Jul 04, 2017 10:22 AM QUIT TOBACCO USE > 7 YEARS AGO stopped 7-10 years ago [facility] Oct 19, 2016 10:08 AM QUIT TOBACCO USE 1 -7 YEARS AGO [facility] Feb 01, 2016 01:15 PM QUIT TOBACCO USE 1 -7 YEARS AGO 1.5 yrs. [facility] Dec 11, 2014 02:03 PM QUIT TOBACCO USE 1 -7 YEARS AGO [facility] Feb 17, 2014 02:23 PM CURRENT SMOKER 2 CIGARS A DAY [facility] Feb 17, 2014 02:23 PM V1-PT DECLINES TOB ACCO CESSATION MEDS [facility] Feb 17, 2014 02:23 PM V1-PT THINKING ABO UT QUIT TOBACCO USE [facility] Advance Directives: All historical and current Section Date Range: From patient's date of to the date document was created. This section includes ALL of a patient's completed or amended [place] Advance and Rescinded Directives. The entries below indicate that a directive exists for the patient, but an actual copy is not included with this document. The data comes from all [facility]. Date Advance Directives Provider Source Mar 29, 2021 ADVANCE DIRECTIVE TYSON STORY [facility] Radiology Reports: +/- 30 days of [...] 10:50 AM CHEST (2 VIEWS): RICO KHAN [id number] -1950 M Exm Date: AUGUST 06, 2024@10:50 Req Phys: MATI BOND Pat Loc: [facility]/NO/BLIND REHAB TELE (Req Img Loc: [facility] 1 Service: [place] [address] (Case [id number] COMPLETE) CHEST (2 VIEWS) (RAD Detailed) CPT:19867 Reason for Study: Recent pneumonia Clinical History: IDDM, Report Status: Verified Date Reported: AUGUST 06, 2024 Date Verified: AUGUST 06, 2024 Assistant To The Ceo E-Sig:/KAYLA/BETTY BURT JR Report: Study: PA and [...] Primary Interpreting Staff: BETTY BURT JR, Radiologist (Assistant To The Ceo) /BETTY LEIVA JR [facility] Encounter Notes: All associated encounter notes [...] Documentation:Jul Please see attached scanned document in [facility]. DX: Type 2 diabetes Sensor: Dexcom G7 /es/ SAURABH PEREZ, RN,BSN, [facility] SENIOR PRODUCT DEVELOPMENT ENGINEER, RN Signed: 07/17/2024 11:11 SAURABH PEREZ [facility] Jul 17, 2024 09:06 AM DIABETOLOGY EDUCAT ION NOTE: LOCAL TITLE: DIABETES EDU FOLLOW UP STANDARD TITLE: DIABETOLOGY EDUCATION NOTE DATE OF NOTE: JUL 17, 2024@09:06 ENTRY DATE: JUL 17, 2024@09:06:31 AUTHOR: SAURABH PEREZ EXP COSIGNER: URGENCY: STATUS: COMPLETED FOLLOW UP DIABETES EDUCATION VISIT Demographics: Patient Name: RICO KHAN Age: 74 Sex: MALE Race: WHITE MARITAL STATUS - Introduction: identified with 2 identifiers: [X] Full Name [X] Date of [ ] Address [ ] [place] ID Card PATIENT PHONE - PHONE NUMBER [CELLULAR] - Is patient phone number correct, if not, enter below: [place]'s phone number: RICO KHAN [address], [place], [address] MOST RECENT LABS: HEMOGLOBIN A1C TREND Collection [...] BMI: 20.0 REASON FOR EDUCATION VISIT TODAY: [place] is now using the Dexcom G7 sensor [...] ago, he was in the hospital at [facility] with pneumonia for 4 days. WBC was high and Magnesium was low. Has an appt to have hernia repaired- being done at [facility]. The date has not been scheduled [...] answered NKA Living arrangements: Alone X Spouse- Amaris (), disabled son and 2 dogs. Family [...] 2 eggs and 2 sausages and 1/2 Swedish muffin. Lunch (smaller meal): turkey breast on a sandwich with potatoes. Or spaghetti, or perlite grinder, or left overs. Dinner: chicken, and [...] Glucagon kit: MONITORING He is connected to [employer] with his cell phone. Currently using the [employer] G7 sensor. Download from today: Dexcom Clarity Rico Farzaneh Date of : 1950 Generated at: Jul [...] from February of 2024: Dexcom Clarity Rico Khan Date of : 1950 Generated at: Feb [...] an appt with a kidney specialist in [address] Use to see Dr. Costello. FEET/LEGS/SKIN: No amputations Tingling/Numbness: Hands X Feet- has pain with walking at night. Also has cramps in the middle of the night. Comments: Sees compounding and finishing supervisor for regular visits: Seeing Dr. Payne in October. CARDIOVASCULAR/CEREBROVASCULAR No history of stroke or GA. Comments: Has seen technical data analyst in the past. He had some problem [...] ASSESSMENT: Kindly referred by Dr. Kuhn, however, [place] reports he is now seeing a Pharmacist. [place]'s last A1C was 8.6% in April. He continues to use the Dexcom G7 sensor with his cell phone and he is very thrilled with this sensor and how he has no skin reactions from it. He had terrible skin reactions with the Dexcom G6 sensor. He is legally blind and has many adaptations that the [place] has provided for him. He needs extra [...] more, which should help make a difference. [place] is scheduled to see Pharmacist in August [...] Will significant other participate in program? Yes, Amaris _ TEACHING MATERIALS GIVEN: _ EDUCATION: -Reviewed sensor download in detail. -Reviewed pattern management and insulin adjustments. INSTRUCTIONS: -Continue using the Dexcom G7 sensor today to monitor blood sugars. -Please call Dexcom Helpline if the sensor dies on you or falls off to have it replaced. -Continue current diabetes medications: Glargine 8 units once a day, before bed Empagliflozin 25 mg, 1 tab once a day Sitagliptin 100 mg, 1 tab once a day -Please call with any questions or concerns. -Follow up with Pharmacist in August and follow up with Oil Well Gun Perforator Operator in October.. Patient/Family Verbalized Understanding FUTURE APPOINTMENTS: 08/06/2024 10:30 NH[facility] OPTOMETRY VSL IMG 08/06/2024 11:00 NHM OPTOMETRY 3 08/06/2024 11:45 NHM XRAY NONCOUNT 08/06/2024 15:30 SPR PHONE PHARM PACT 1 08/29/2024 11:00 NHM OPTOMETRY LOW VSN 09/25/2024 10:00 SPR PACT 7 DRAW FRAME TENDER 10/02/2024 10:30 SPR PODIATRY 1 12/25/2024 11:00 SPR PACT EIGHT DM type is : Type 2 diabetes Length of Visit: 60 minutes /kayla/ SAURABH PEREZ, RN,BSN, [facility] SENIOR PRODUCT DEVELOPMENT ENGINEER, RN Signed: 07/17/2024 11:09 Receipt Acknowledged By: 08/13/2024 21:28 /es/ Mati Bond MD MD PRIMARY CARE PHYSICIAN 07/17/2024 11:14 /kayla/ Michelle Galvan, PharmD Clinical Pharmacy Practitioner SAURABH PEREZFIELD
--- OUTSIDE RECORDS SUMMARY | 2024-08-14 13:49 | XMS_ITS | Continuity of Care Document ---
Author Name [facility] Organization [facility] Care Team Providers Care Hand Booked Folder And Stitcher Name Role Phone [facility] Unavailable Unavailable Problems Combined list of problems from Department of Defense and Veterans Affairs facilities. It does not include entries that were removed or entered in error. Problem Status Onset Date Problem Type Date of Resolution Comments Source Age-related nuclear cataracts of both eyes Active Condition Apr 17, 2024 Entered By: DARLIN BALDWIN Comment: Per Eye and [facility] note Dr Rubens Robbins [place] Chronic kidney disease stage 3 due to type 2 diabetes mellitus Active Condition Apr 17 Entered By: DARLIN BALDWIN Comment: 04/15/24 GFR 43 [facility] Depressive disorder Active Condition [place] Diabetes mellitus type 2 Active Condition Apr 17, 2024 Entered By: DARLIN BALDWIN Comment: 04/15/24 A1c 8.6 [facility] Diabetic peripheral neuropathy Active Condition Apr 17, 2024 Entered By: DARLIN BALDWIN Comment: mild, intermittent [facility] Essential hypertension Active Condition [place] Essential tremor Active Condition [facility] Exposure to potentially hazardous substance ([facility] [id number]) Active Condition Jul 11 Entered By: JOYCE [...] Gastroesophageal reflux disease with esophagitis Active Condition [facility] History of surgery Active Condition J an 2024 Entered By: DARLIN BALDWIN Comment: left thumb ligament tear repair 1999 [place] - Iron deficiency anemia Active Condition [...] 2024 Entered By: DARLIN BALDWIN Comment: Agent [place] Myopic macular degeneration Active Condition [place] Nonproliferative diabetic retinopathy Active Condition [place] Osteoarthritis of right knee joint [facility] for malignant neoplasm of colon done Active Condition Apr 17, 2024 Entered By: DARLIN BALDWIN Comment: colo about 2008; normal; Apr 05, 2021 Entered By: LUDA OLEARY Comment: 01-23-2021 [facility] Valero tubular adenoma no dysplagia, no return [place] Food insecurity Inactive Condition 05/21/2024 [facility] Onychomycosis of toenails Inactive Condition 04/17/2024 [facility] Diagnosis: ICD-10-CM H54.8 Legal blindness, as defined in [place] Active Diagnosis [facility] Diagnosis: ICD-10-CM E11.9 Type 2 diabetes mellitus without complications Active Diagnosis [place] Diagnosis: ICD-10-CM E11.22 Type 2 diabetes mellitus w diabetic chronic kidney disease Active Diagnosis [facility] Diagnosis: ICD-10-CM L60.3 Nail dystrophy Active [facility] Diagnosis: ICD-10-CM D50.9 Iron deficiency anemia, unspecified Active Diagnosis [place] Diagnosis: ICD-10-CM Z46.0 Encounter for fit/adjst of spectacles and contact lenses Active Diagnosis [facility] Diagnosis: ICD-10-CM G25.0 Essential tremor Active Diagnosis [facility] Diagnosis: ICD-10-CM E11.3299 Type 2 diab with mild nonp rtnop without macular edema, unsp Active Diagnosis [place] Diagnosis: ICD-10-CM N18.9 Chronic kidney disease, unspecified Active Diagnosis [place] Diagnosis: ICD-10-CM Z46.1 Encounter for fitting and adjustment of hearing aid Active Diagnosis [facility] Diagnosis: ICD-10-CM H90.3 Sensorineural hearing loss, bilateral [facility] Diagnosis: ICD-10-CM I10 Essential (primary) hypertension Active Diagnosis [place] Diagnosis: ICD-10-CM E11.40 Type 2 diabetes mellitus with diabetic neuropathy, unsp Active Diagnosis [facility] [place] [facility] Diagnosis: ICD-10-CM M25.561 Pain in right knee Active Diagnosis [facility] Medications Combined list of outpatient medications from [...] 2 DIABETES MELLITUS ORAL DISCONT INUED 05/06/2024 [id number] 4 CHASITYAL ICE 2023 90 [facility] AMLODIPINE BESYLATE 5MG TAB TAKE ONE TABLET BY MOUTH ONCE DAILY FOR BLOOD PRESSURE /HEART, DO NOT TAKE WITH GRAPEFRU IT JUICE ORAL ACTIVE 07/25/2025 [id number] 5 TRESSA BOND 2024 60 [facility] AMLODIPINE BESYLATE 5MG TAB TAKE ONE TABLET BY MOUTH ONCE DAILY FOR BLOOD PRESSURE /HEART, DO NOT TAKE WITH GRAPEFRU IT JUICE ORAL DISCONT INUED 01/29/2025 [id number] 5 MARIELLE AGUILA F 2023 60 [facility] IELD AMLODIPINE BESYLATE 5MG TAB TAKE ONE TABLET BY MOUTH ONCE DAILY FOR BLOOD PRESSURE /HEART, DO NOT TAKE WITH GRAPEFRU IT JUICE ORAL DISCONT INUED 05/06/2024 [id number] 4 GASPAR,AL ICE 2023 90 [facility] ATORVASTATI N CA 80MG TAB TAKE ONE TABLET BY MOUTH DAY FOR CHOLESTE ROL ORAL ACTIVE 09/01/2024 [id number] 5 GASPAR,AL ICE 2023 90 [facility] ATORVASTATI N CA 80MG TAB TAKE ONE TABLET BY MOUTH DAY FOR CHOLESTE ROL ORAL DISCONT INUED 05/19/2024 [id number] 4 GASPAR,AL ICE 2023 90 [facility] AZITHROMYCI N 250MG TAB TAKE TWO TABLETS BY MOUTH EVERY 24 HOURS ORAL 07/21/2024 [id number] 5 CHELO VERONICA HCHAIN 2024 6 [place] AZITHROMYCI N 500MG TAB TAKE ONE TABLET BY MOUTH EVERY 24 HOURS ORAL DISCONT INUED (EDIT) 07/20/2024 [id number] 5 CHELO VERONICA HCHAIN 2024 3 [place] CEFUROXIME AXETIL 500MG TAB TAKE ONE TABLET BY MOUTH EVERY 12 HOURS ORAL 07/20/2024 [id number] 5 CHELO VERONICA HCHAIN 2024 14 [place] DULOXETINE HCL 20MG CAP,EC TAKE ONE CAPSULE BY MOUTH ONCE DAILY FOR NERVE PAIN ORAL DISCONT INUED BY PROVIDE R 09/01/2024 [id number] 4 GASPAR,AL ICE 2023 90 [facility] DULOXETINE HCL 20MG CAP,EC TAKE ONE CAPSULE BY MOUTH ONCE DAILY FOR NERVE PAIN ORAL DISCONT INUED 05/23/2024 [id number] GASPAR,AL ICE 2023 90 [facility] EMPAGLIFLOZ IN 25MG TAB TAKE ONE TABLET BY MOUTH ONCE DAILY FOR TYPE 2 DIABETES MELLITUS ORAL ACTIVE 09/01/2024 [id number] 5 GASPAR,AL ICE 2023 90 [facility] EZETIMIBE 10MG TAB TAKE ONE TABLET BY MOUTH ONCE DAILY TO LOWER CHOLESTE ROL ORAL ACTIVE 04/18/2025 [id number] 5 Gage BALDWIN 2024 90 [facility]ELD EZETIMIBE 10MG TAB TAKE ONE TABLET BY MOUTH ONCE DAILY TO LOWER CHOLESTE ROL ORAL DISCONT INUED 09/01/2024 [id number] 4 GASPAR,AL ICE 2023 90 [facility] EZETIMIBE 10MG TAB TAKE ONE TABLET BY MOUTH ONCE DAILY TO LOWER CHOLESTE ROL ORAL DISCONT INUED 05/19/2024 [id number] 4 GASPAR,AL ICE 2023 90 [facility] FERROUS SO4 325MG TAB TAKE ONE TABLET BY MOUTH ONCE DAILY TO SUPPLEME NT IRON ORAL ACTIVE 02/02/2025 [id number] 5 Gage BALDWIN 2023 100 [facility] FERROUS SO4 325MG TAB TAKE ONE TABLET BY MOUTH ONCE DAILY TO SUPPLEME NT IRON ORAL DISCONT INUED 12/08/2023 [id number] 4 GONSALO ESPINOZA 2022 [address] [facility] FLUTICASONE PROPIONATE 50MCG/SPRAY SOLN,NASAL, 16GM INSTILL 1 SPRAY TOPICALL Y EVERY 10 DAYS TO PREVENT IRRITATI ON FROM SENSOR TOPICA L ACTIVE 09/01/2024 [id number] 4 GASPAR,AL ICE 2023 1 [facility] GABAPENTIN 300MG CAP TAKE ONE CAPSULE BY MOUTH THREE TIMES A DAY FOR NERVE PAIN CHANGE FROM TABLETS ORAL ACTIVE 09/01/2024 [id number] 5 GASPAR,AL ICE 2023 270 [facility] GABAPENTIN 300MG CAP TAKE ONE CAPSULE BY MOUTH THREE TIMES A DAY FOR NERVE PAIN CHANGE FROM TABLETS ORAL DISCONT INUED 05/23/2024 [id number] 4 GASPAR,AL ICE 2023 270 [facility] GLUCOSE 4GM TAB,CHEW CHEW FOUR TABLETS BY MOUTH ONE TIME NEEDED FOR LOW BLOOD SUGAR ORAL ACTIVE 09/01/2024 [id number] 4 GASPAR,AL ICE 2023 30 [facility] GLUCOSE 4GM TAB,CHEW CHEW FOUR TABLETS BY MOUTH ONE TIME NEEDED FOR LOW BLOOD SUGAR ORAL DISCONT INUED 05/19/2024 [id number] 4 GASPAR,AL ICE 2023 30 [facility] INSULIN,ASP ART,HUMAN (EQV-NOVOLO G) 100 UNIT/ML,FLE XPEN,3ML INJECT 4 UNITS SUBCUTAN EOUSLY EVERY MORNING AND INJECT 3 UNITS EVERY EVENING BEFORE SUPPER FOR DIABETES SUBCUT ANEOUS DISCONT INUED BY PROVIDE R 09/01/2024 [id number] 4 GASPAR,AL ICE 2023 5 [facility] INSULIN,ASP ART,HUMAN (EQV-NOVOLO G) 100 UNIT/ML,FLE XPEN,3ML INJECT 3 UNITS SUBCUTAN EOUSLY EVERY MORNING AND INJECT 2 UNITS EVERY EVENING BEFORE SUPPER SUBCUT ANEOUS DISCONT INUED (EDIT) 05/19/2024 [id number] 4 GASPAR,AL ICE 2023 5 [facility] INSULIN,GLA RGINE,HUMAN 100 UNIT/ML INJ,SOLOSTA R,3ML INJECT 8 UNITS SUBCUTAN EOUSLY ONCE DAILY FOR DIABETES SUBCUT ANEOUS ACTIVE 07/10/2025 [id number] 5 SCHUYLER HARRIS 2024 5 [place] INSULIN,GLA RGINE-YFGN 100UNIT/ML INJ PEN,3ML INJECT 6 UNITS SUBCUTAN EOUSLY ONCE DAILY FOR DIABETES SUBCUT ANEOUS DISCONT INUED BY PROVIDE R 12/05/2024 [id number] 4 SCHUYLER HRARIS 2023 5 [place] INSULIN,GLA RGINE-YFGN 100UNIT/ML INJ PEN,3ML INJECT 3 UNITS SUBCUTAN EOUSLY ONCE DAILY FOR DIABETES SUBCUT ANEOUS DISCONT INUED (EDIT) 09/01/2024 [id number] 4 GASPAR,AL ICE 2023 5 [facility] [facility] INSULIN,GLA RGINE-YFGN 100UNIT/ML INJ PEN,3ML INJECT 3 UNITS SUBCUTAN EOUSLY ONCE DAILY FOR DIABETES SUBCUT ANEOUS DISCONT INUED 05/19/2024 [id number] 4 GASPAR,AL ICE 2023 5 [facility] LISINOPRIL 10MG TAB TAKE ONE TABLET BY MOUTH ONCE DAILY TO CONTROL BLOOD PRESSURE ORAL ACTIVE 06/27/2025 [id number] 5 TRESSA BOND 2024 90 [place] LISINOPRIL 20MG TAB TAKE ONE TABLET BY MOUTH ONCE DAILY TO CONTROL BLOOD PRESSURE ORAL DISCONT INUED (EDIT) 09/01/2024 [id number] 5 GASPAR,AL ICE 2023 90 [facility] LISINOPRIL 20MG TAB TAKE ONE TABLET BY MOUTH ONCE DAILY TO CONTROL BLOOD PRESSURE ORAL DISCONT INUED 05/19/2024 [id number] 4 GASPAR,AL ICE 2023 90 [facility] MAGNESIUM OXIDE 250MG TAB TAKE ONE TABLET BY MOUTH ONCE DAILY ORAL DISCONT INUED (EDIT) 10/02/2024 [id number] 4 MARIELLE AGUILA F 2023 90 [place] MAGNESIUM OXIDE 250MG TAB TAKE ONE TABLET BY MOUTH ONCE DAILY ORAL DISCONT INUED 05/19/2024 [id number] 4 GASPAR,AL ICE 2023 90 [facility] MAGNESIUM OXIDE 400MG TAB TAKE ONE TABLET BY MOUTH TWICE DAILY ORAL ACTIVE 06/27/2025 [id number] 5 TRESSA BOND 2024 180 [place] MAGNESIUM OXIDE 400MG TAB TAKE ONE TABLET BY MOUTH TWICE DAILY ORAL DISCONT INUED 07/20/2024 [id number] 5 CHELO VERONICA HCHAIN 2024 14 [facility] IELD METFORMIN HCL 500MG TAB TAKE ONE TABLET BY MOUTH TWICE DAILY ORAL DISCONT INUED BY PROVIDE R 05/19/2024 [id number] 4 GASPAR,AL ICE 2023 180 [facility] OMEPRAZOLE 20MG CAP,EC TAKE ONE CAPSULE BY MOUTH EVERY MORNING 30 MINUTES BEFORE BREAKFAS T ORAL ACTIVE 04/18/2025 [id number] 5 Gage BALDWIN 2024 90 [place] OMEPRAZOLE 20MG CAP,EC TAKE ONE CAPSULE BY MOUTH EVERY MORNING 30 MINUTES BEFORE BREAKFAS T ORAL DISCONT INUED 02/14/2025 [id number] 4 SCHUYLER HARRIS 2023 90 [facility]ELD OMEPRAZOLE 20MG CAP,EC TAKE ONE CAPSULE BY MOUTH EVERY MORNING 30 MINUTES BEFORE BREAKFAS T ORAL DISCONT INUED 05/17/2024 [id number] 4 MARIELLE AGUILA F 2023 90 [place] PRIMIDONE 50MG TAB TAKE ONE TABLET BY MOUTH AT BEDTIME TREMOR ORAL ACTIVE 04/06/2025 [id number] 5 Gage BALDWIN 2024 90 [place] PRIMIDONE 50MG TAB TAKE ONE TABLET BY MOUTH AT BEDTIME TREMOR ORAL DISCONT INUED 03/10/2024 [id number] SUKUMAR CAR 20[facility] SITAGLIPTIN (EQV-ZITUVI O) 100MG TAB TAKE ONE TABLET BY MOUTH ONCE DAILY DIABETES ORAL ACTIVE 03/20/2025 [id number] 5 GASPAR,AL ICE 2023 90 [facility] TAMSULOSIN HCL 0.4MG CAP TAKE ONE CAPSULE BY MOUTH AT BEDTIME ORAL ACTIVE 08/19/2024 [id number] 5 CHELO VERONICA HCHAIN 2024 60 [place] Immunizations Combined list of available immunizations from the Department of Defense and Veterans Affairs facilities. Immunization Series Date Given Administered By Site Reaction Lot Number CVX Code Drug Vice President Marketing & Development Status Comments Source INFLUENZA, HIGH-DOSE, TRIVALENT, PF 2023 SARA DOMINGUEZ RIGHT DELTO ID [id number] 135 complet ed [facility] [place] INFLUENZA, HIGH-DOSE, QUADRIVALENT 2022 LALA STRONG RIGHT DELTO ID [id number] 197 complet ed [facility] [place] INFLUENZA, INJECTABLE, QUADRIVALENT, PRESERVATIVE FREE 2021 150 complet ed [place] ZOSTER RECOMBINANT 2 2020 187 complet ed [place] COVID-19 (MODERNA), MRNA, LNP-S, PF, 100 MCG OR 50 MCG DOSE 3 2020 207 complet ed MOD; [id number]; 2 [place] INFLUENZA VACCINE, QUADRIVALENT, ADJUVANTED [...] AM Reporting Lab: [facility] [place] [address] [address] Performing Lab: [facility] [place] [address] [address] [facility] [facility] [place] [facility] [place] CBC AND DIFF (AUTO) LEUKOCYTES [#/VOLUME] IN BLOOD BY AUTOMATED COUNT 10.23 10*3/u L 4.50 - 11.00 07/17 Specimen Type: BLOOD No comment entered. Ordering Provider: LOUIE BOND Report Released Date/Time: Jul 04, 2024 10:36 AM Reporting Lab: [facility] [place] [address] [address] Performing Lab: [facility] [place] [facility] [place] [address] [facility] [address] [place] [facility] [place] [facility] [place] CBC AND DIFF (AUTO) ERYTHROCYTE S [#/VOLUME] IN BLOOD BY AUTOMATED COUNT 3.66 10*6/u L 4.23 - 5.66 07/17 L Specimen Type: BLOOD No comment entered. Ordering Provider: LOUIE BOND Report Released Date/Time: Jul 04, 2024 10:36 AM Reporting Lab: [facility] [place] [address] [address] Performing Lab: [facility] [address] [facility] [address] [facility] CBC AND DIFF (AUTO) HEMOGLOBIN [MASS/VOLUM E] IN BLOOD 11.6 g/dL 12.8 - 17 07/17 L Specimen Type: BLOOD No comment entered. Ordering Provider: LOUIE BOND Report Released Date/Time: Jul 04, 2024 10:36 AM Reporting Lab: [facility] [address] [facility] [address] Performing Lab: [facility] [address] [facility] [address] [facility] CBC AND DIFF (AUTO) HEMATOCRIT [VOLUME FRACTION] OF BLOOD BY AUTOMATED COUNT 34.4 39.2 - 50.4 07/17 L Specimen Type: BLOOD No comment entered. Ordering Provider: LOUIE BOND Report Released Date/Time: Jul 04, 2024 10:36 AM Reporting Lab: [facility] [address] [facility] [address] Performing Lab: [facility] [address] [facility] [address] [facility] CBC AND DIFF (AUTO) MCV [ENTITIC VOLUME] BY AUTOMATED COUNT 94.0 fL 82 - 99 07/17 Specimen Type: BLOOD No comment entered. Ordering Provider: LOUIE BOND Report Released Date/Time: Jul 04, 2024 10:36 AM Reporting Lab: [facility] [address] [facility] [address] Performing Lab: [facility] [address] [facility] [address] [facility] CBC AND DIFF (AUTO) MCHC [MASS/VOLUM E] BY AUTOMATED COUNT 33.7 g/dL 30.8 - 35.1 07/17 Specimen Type: BLOOD No comment entered. Ordering Provider: LOUIE BOND Report Released Date/Time: Jul 04, 2024 10:36 AM Reporting Lab: [facility] [place] [facility] [place] [address] [facility] [address] Performing Lab: [facility] [place] [facility] [place] [address] [facility] [address] [facility] [place] [facility] [place] CBC AND DIFF (AUTO) PLATELETS [#/VOLUME] IN BLOOD BY AUTOMATED COUNT 292 10*3/u L 140 - 360 07/17 Specimen Type: BLOOD No comment entered. Ordering Provider: LOUIE BOND Report Released Date/Time: Jul 04, 2024 10:36 AM Reporting Lab: [facility] [place] [facility] [place] [address] [facility] [address] Performing Lab: [facility] [place] [facility] [place] [address] [facility] [address] [facility] [place] [facility] [place] CBC AND DIFF (AUTO) PLATELET MEAN VOLUME [ENTITIC VOLUME] IN BLOOD BY AUTOMATED COUNT 9.4 fL 9.2 - 12.4 07/17 Specimen Type: BLOOD No comment entered. Ordering Provider: LOUIE BOND Report Released Date/Time: Jul 04, 2024 10:36 AM Reporting Lab: [facility] [place] [facility] [place] [address] [facility] [address] Performing Lab: [facility] [place] [facility] [place] [address] [facility] [address] [facility] [place] [facility] [place] CBC AND DIFF (AUTO) ERYTHROCYTE DISTRIBUTIO N WIDTH [RATIO] BY AUTOMATED COUNT 13.5 12.0 - 16.0 07/17 Specimen Type: BLOOD No comment entered. Ordering Provider: LOUIE BOND Report Released Date/Time: Jul 04, 2024 10:36 AM Reporting Lab: [facility] [place] [facility] [place] [address] [facility] [address] Performing Lab: [facility] [place] [facility] [place] [address] [facility] [address] [facility] [place] [facility] [place] CBC AND DIFF (AUTO) MONOCYTES [#/VOLUME] IN BLOOD BY AUTOMATED COUNT 0.84 10*3/u L 0.30 - 1.10 07/17 Specimen Type: BLOOD No comment entered. Ordering Provider: LOUIE BOND Report Released Date/Time: Jul 04, 2024 10:36 AM Reporting Lab: [facility] [address] [facility] [address] Performing Lab: [facility] [facility] [address] [facility] [address] [facility] CBC AND DIFF (AUTO) MCH [ENTITIC MASS] BY AUTOMATED COUNT 31.7 pg 26.2 - 32.6 07/17 Specimen Type: BLOOD No comment entered. Ordering Provider: LOUIE BOND Report Released Date/Time: Jul 04, 2024 10:36 AM Reporting Lab: [facility] [facility] [address] [facility] [address] Performing Lab: [facility] [facility] [address] [facility] [address] [facility] CBC AND DIFF (AUTO) NEUTROPHILS /100 LEUKOCYTES IN BLOOD BY AUTOMATED COUNT 70.1 43.7 - 75.8 07/17 Specimen Type: BLOOD No comment entered. Ordering Provider: LOUIE BOND Report Released Date/Time: Jul 04, 2024 10:36 AM Reporting Lab: [facility] [facility] [address] [facility] [address] Performing Lab: [facility] [facility] [address] [facility] [address] [facility] CBC AND DIFF (AUTO) LYMPHOCYTES /100 LEUKOCYTES IN BLOOD BY AUTOMATED COUNT 17.3 14.0 - 42.3 07/17 Specimen Type: BLOOD No comment entered. Ordering Provider: LOUIE BOND Report Released Date/Time: Jul 04, 2024 10:36 AM Reporting Lab: [facility] [address] [facility] [address] Performing Lab: [facility] [facility] [address] [facility] [address] [facility] CBC AND DIFF (AUTO) MONOCYTES/1 00 LEUKOCYTES IN BLOOD BY AUTOMATED COUNT 8.2 5.1 - 13.7 07/17 Specimen Type: BLOOD No comment entered. Ordering Provider: LOUIE BOND Report Released Date/Time: Jul 04, 2024 10:36 AM Reporting Lab: [facility] [place] [address] [address] Performing Lab: [facility] [place] [address] [address] [facility] CBC AND DIFF (AUTO) EOSINOPHILS /100 LEUKOCYTES IN BLOOD BY AUTOMATED COUNT 2.9 0.4 - 6.8 07/17 Specimen Type: BLOOD No comment entered. Ordering Provider: LOUIE BOND Report Released Date/Time: Jul 04, 2024 10:36 AM Reporting Lab: [facility] [place] [address] [address] Performing Lab: [facility] [place] [address] [address] [facility] [place] [facility] [place] CBC AND DIFF (AUTO) BASOPHILS/1 00 LEUKOCYTES IN BLOOD BY AUTOMATED COUNT 1.0 0.1 - 2.0 07/17 Specimen Type: BLOOD No comment entered. Ordering Provider: LOUIE BNOD Report Released Date/Time: Jul 04, 2024 10:36 AM Reporting Lab: [facility] [place] [address] [address] Performing Lab: [facility] [place] [address] [address] [facility] CBC AND DIFF (AUTO) NEUTROPHILS [#/VOLUME] IN BLOOD BY AUTOMATED COUNT 7.17 10*3/u L 2.20 - 7.60 07/17 Specimen Type: BLOOD No comment entered. Ordering Provider: LOUIE BOND Report Released Date/Time: Jul 04, 2024 10:36 AM Reporting Lab: [facility] [place] [address] [address] Performing Lab: [facility] [place] [facility] [place] [address] [facility] [address] [facility] CBC AND DIFF (AUTO) LYMPHOCYTES [#/VOLUME] IN BLOOD BY AUTOMATED COUNT 1.77 10*3/u L 1.00 - 3.20 07/17 Specimen Type: BLOOD No comment entered. Ordering Provider: LOUIE BOND Report Released Date/Time: Jul 04, 2024 10:36 AM Reporting Lab: [facility] [address] [facility] [address] Performing Lab: [facility] [place] [facility] [place] [address] [facility] [address] [facility] [place] [facility] [place] CBC AND DIFF (AUTO) EOSINOPHILS [#/VOLUME] IN BLOOD BY AUTOMATED COUNT 0.30 10*3/u L 0.03 - 0.44 07/17 Specimen Type: BLOOD No comment entered. Ordering Provider: LOUIE BOND Report Released Date/Time: Jul 04, 2024 10:36 AM Reporting Lab: [facility] [place] [facility] [place] [address] [facility] [address] Performing Lab: [facility] [place] [facility] [place] [address] [facility] [address] [facility] [place] [facility] [place] CBC AND DIFF (AUTO) BASOPHILS [#/VOLUME] IN BLOOD BY AUTOMATED COUNT 0.10 10*3/u L 0.01 - 0.13 07/17 Specimen Type: BLOOD No comment entered. Ordering Provider: LOUIE BOND Report Released Date/Time: Jul 04, 2024 10:36 AM Reporting Lab: [facility] [place] [facility] [place] [address] [facility] [phone] Performing Lab: [facility] [place] [facility] [place] [address] [facility] [address] [facility] [place] [facility] [place] CBC AND DIFF (AUTO) IMMATURE GRANULOCYTE S/100 LEUKOCYTES IN BLOOD BY AUTOMATED COUNT 0.5 0.0 - 0.7 07/17 Specimen Type: BLOOD No comment entered. Ordering Provider: LOUIE BOND Report Released Date/Time: Jul 04, 2024 10:36 AM Reporting Lab: [facility] [place] [facility] [address] [facility] [address] Performing Lab: [facility] [place] [facility] [address] [facility] [address] [facility] [place] [facility] CBC AND DIFF (AUTO) IMMATURE GRANULOCYTE S [#/VOLUME] IN BLOOD BY AUTOMATED COUNT 0.05 10*3/u L 0.00 - 0.06 07/17 Specimen Type: BLOOD No comment entered. Ordering Provider: LOUIE BOND Report Released Date/Time: Jul 04, 2024 10:36 AM Reporting Lab: [facility] [place] [facility] [address] [facility] [phone] Performing Lab: [facility] [place] [facility] [place] [address] [facility] [address] [facility] [place] [facility] [place] CBC AND DIFF (AUTO) NUCLEATED ERYTHROCYTE S/100 LEUKOCYTES [RATIO] IN BLOOD BY AUTOMATED COUNT 0.0 0.0 - 0.0 07/17 Specimen Type: BLOOD No comment entered. Ordering Provider: LOUIE BOND Report Released Date/Time: Jul 04, 2024 10:36 AM Reporting Lab: [facility] [place] [facility] [place] [address] [facility] [phone] Performing Lab: [facility] [place] [facility] [place] [address] [facility] [address] [facility] [place] CBC AND DIFF (AUTO) NUCLEATED ERYTHROCYTE S [#/VOLUME] IN BLOOD BY AUTOMATED COUNT 0.00 10*3/u L 0.00 - 0.00 07/17 Specimen Type: BLOOD No comment entered. Ordering Provider: LOUIE BOND Report Released Date/Time: Jul 04, 2024 10:36 AM Reporting Lab: [facility] [address] [facility] [address] Performing Lab: [facility] [place] [facility] [place] [address] [facility] [address] [facility] [place] VITAMIN D (25-OH) 25-HYDROXYV ITAMIN D3+25-HYDRO XYVITAMIN D2 [MASS/VOLUM E] IN SERUM OR PLASMA 13.6 ng/mL 20 - 50 07/17 L Specimen Type: SERUM No comment entered. Ordering Provider: ROXANA BALDWIN Report Released Date/Time: May 21, 2024 08:43 AM Reporting Lab: [address] [address] Performing Lab: [address] [address] [place] MAGNESIUM MAGNESIUM [MASS/VOLUM E] IN SERUM OR PLASMA 1.5 mg/dL 1.6 - 2.6 07/17 L Specimen Type: SERUM No comment entered. Ordering Provider: ROXANA BALDWIN Report Released Date/Time: May 21, 2024 08:43 AM Reporting Lab: [address] [address] Performing Lab: [address] [address] [place] IRON & TIBC PANEL IRON BINDING CAPACITY [MASS/VOLUM E] IN SERUM OR PLASMA 268 ug/dL 204 - 475 07/17 Specimen Type: SERUM No comment entered. Ordering Provider: ROXANA BALDWIN Report Released Date/Time: May 21, 2024 08:43 AM Reporting Lab: [address] [address] Performing Lab: [address] [address] [place] IRON & TIBC PANEL IRON [MASS/VOLUM E] IN SERUM OR PLASMA 76 ug/dL 65 - 175 07/17 Specimen Type: SERUM No comment entered. Ordering Provider: ROXANA BALDWIN Report Released Date/Time: May 21, 2024 08:43 AM Reporting Lab: [address] [address] Performing Lab: [address] [address] [place] [facility] IRON & TIBC PANEL IRON/IRON BINDING CAPACITY.TO JOSE G [MASS RATIO] IN SERUM OR PLASMA 28.4 15 - 45 07/17 Specimen Type: SERUM No comment entered. Ordering Provider: ROXANA BALDWIN Report Released Date/Time: May 21, 2024 08:43 AM Reporting Lab: [address] [address] Performing Lab: [address] [address] [place] [facility] and [facility] IRON & TIBC PANEL TRANSFERRIN [MASS/VOLUM E] IN SERUM OR PLASMA 203 mg/dL 180 - 382 07/17 Specimen Type: SERUM No comment entered. Ordering Provider: ROXANA BALDWIN Report Released Date/Time: May 21, 2024 08:43 AM Reporting Lab: [address] [address] Performing Lab: [address] [address] [place] [facility] HEMOGLOBI N A1C PANEL HEMOGLOBIN A1C/HEMOGLO BIN.TOTAL [...] May 21, 2024 08:43 AM Reporting Lab: [address] [address] Performing Lab: [address] [address] [place] [facility] BASIC METABOLIC PANEL (fasting) UREA NITROGEN [MASS/VOLUM E] IN SERUM OR PLASMA 22 mg/dL 8 - 26 07/17 Specimen Type: SERUM No comment entered. Ordering Provider: ROXANA BALDWIN Report Released Date/Time: May 21, 2024 08:43 AM Reporting Lab: [facility] [address] [address] Performing Lab: [facility] [address] [address] [place] BASIC METABOLIC PANEL (fasting) GLUCOSE [MASS/VOLUM E] IN SERUM OR PLASMA 114 mg/dL 65 - 100 07/17 H Specimen Type: SERUM No comment entered. Ordering Provider: ROXANA BALDWIN Report Released Date/Time: May 21, 2024 08:43 AM Reporting Lab: [facility] [address] [address] Performing Lab: [facility] [address] [address] [place] BASIC METABOLIC PANEL (fasting) SODIUM [MOLES/VOLU ME] IN SERUM OR PLASMA 132 mmol/L 136 - 145 07/17 L Specimen Type: SERUM No comment entered. Ordering Provider: ROXANA BALDWIN Report Released Date/Time: May 21, 2024 08:43 AM Reporting Lab: [facility] [address] [address] Performing Lab: [facility] [address] [address] [place] BASIC METABOLIC PANEL (fasting) POTASSIUM [MOLES/VOLU ME] IN SERUM OR PLASMA 4.8 mmol/L 3.5 - 5.1 07/17 Specimen Type: SERUM No comment entered. Ordering Provider: ROXANA BALDWIN Report Released Date/Time: May 21, 2024 08:43 AM Reporting Lab: [facility] [address] [address] Performing Lab: [facility] [address] [address] [place] BASIC METABOLIC PANEL (fasting) CHLORIDE [MOLES/VOLU ME] IN SERUM OR PLASMA 100 mmol/L 98 - 107 07/17 Specimen Type: SERUM No comment entered. Ordering Provider: ROXANA BALDWIN Report Released Date/Time: May 21, 2024 08:43 AM Reporting Lab: [facility]ITALRUNITED [facility]PITALTRN [address] [address] Performing Lab: [facility] [address] [address] [place] BASIC METABOLIC PANEL (fasting) CARBON DIOXIDE, TOTAL [MOLES/VOLU ME] IN SERUM OR PLASMA 25 meq/L 23 - 31 07/17 Specimen Type: SERUM No comment entered. Ordering Provider: ROXANA BALDWIN Report Released Date/Time: May 21, 2024 08:43 AM Reporting Lab: [facility] [address] [address] Performing Lab: [facility] [address] [address] [place] BASIC METABOLIC PANEL (fasting) CALCIUM [MASS/VOLUM E] IN SERUM OR PLASMA 9.1 mg/dL 8.8 - 10 07/17 Specimen Type: SERUM No comment entered. Ordering Provider: ROXANA BALDWIN Report Released Date/Time: May 21, 2024 08:43 AM Reporting Lab: [facility]ITAL[facility]ITALN [address] [address] Performing Lab: [facility]ITAL[facility]ITALN [address] [address] [place] BASIC METABOLIC PANEL (fasting) CREATININE [MASS/VOLUM E] IN SERUM OR PLASMA 1.06 mg/dL 0.72 - 1.25 07/17 Specimen Type: SERUM No comment entered. Ordering Provider: ROXANA BALDWIN Report Released Date/Time: May 21, 2024 08:43 AM Reporting Lab: [facility]OSPITALRUNITED STATES MARINE HOSPITALTRN [facility]USE[address] [address] Performing Lab: [facility]ITALRBRYCE HOSPITALN [address] [address] [place] BASIC METABOLIC PANEL (fasting) GLOMERULAR FILTRATION RATE/1.73 SQ M.PREDICTED [VOLUME RATE/AREA] IN SERUM, PLASMA OR BLOOD BY CREATININE- BASED FORMULA (CKD-EPI 2020) 73 mL/min 60 07/17 Specimen Type: SERUM No comment entered. Ordering Provider: ROXANA BALDWIN Report Released Date/Time: May 21, 2024 08:43 AM Reporting Lab: [facility] [facility] [place] [address] [facility] [address] Performing Lab: [place] [facility]ITALUSE[address] [address] [place] TSH THYROTROPIN [UNITS/VOLU ME] IN SERUM OR PLASMA BY DETECTION LIMIT <= 0.005 MIU/L 1.19 u[IU]/ mL 0.35 - 4.94 07/17 Specimen Type: SERUM No comment entered. Ordering Provider: ROXANA BALDWIN Report Released Date/Time: May 21, 2024 08:43 AM Reporting Lab: [place] [facility] [address] Performing Lab: [place] [facility] [address] [place] LIVER FUNCTION PROTEIN [MASS/VOLUM E] IN SERUM OR PLASMA 7.5 g/dL 6.4 - 8.3 07/17 Specimen Type: SERUM No comment entered. Ordering Provider: ROXANA BALDWIN Report Released Date/Time: May 21, 2024 08:43 AM Reporting Lab: [place] [facility]ITAL[facility] [address] [address] Performing Lab: [place] [facility] [address] [address] [place] LIVER FUNCTION ALBUMIN [MASS/VOLUM E] IN SERUM OR PLASMA BY BROMOCRESOL PURPLE (BCP) DYE BINDING METHOD 3.4 g/dL 3.2 - 4.6 07/17 Specimen Type: SERUM No comment entered. Ordering Provider: ROXANA BALDWIN Report Released Date/Time: May 21, 2024 08:43 AM Reporting Lab: [place] [facility]ITAL[facility] [address] [address] Performing Lab: [place] [facility] [address] [address] [place] LIVER FUNCTION ALKALINE PHOSPHATASE [ENZYMATIC ACTIVITY/VO LUME] IN SERUM OR PLASMA 112 U/L 40 - 150 07/17 Specimen Type: SERUM No comment entered. Ordering Provider: ROXANA BALDWIN Report Released Date/Time: May 21, 2024 08:43 AM Reporting Lab: [place] [facility] [place] [address] [address] Performing Lab: [facility] [place] [address] [address] [place] LIVER FUNCTION ASPARTATE AMINOTRANSF ERASE [ENZYMATIC ACTIVITY/VO LUME] IN SERUM OR PLASMA BY WITH P-5'-P 30 U/L 5 - 34 07/17 Specimen Type: SERUM No comment entered. Ordering Provider: ROXANA BALDWIN Report Released Date/Time: May 21, 2024 08:43 AM Reporting Lab: [place] [facility] [place] [address] [address] Performing Lab: [place] [facility] [place] [address] [address] [place] LIVER FUNCTION ALANINE AMINOTRANSF ERASE [ENZYMATIC ACTIVITY/VO LUME] IN SERUM OR PLASMA BY WITH P-5'-P 15 U/L 07/17 Specimen Type: SERUM No comment entered. Ordering Provider: ROXANA BALDWIN Report Released Date/Time: May 21, 2024 08:43 AM Reporting Lab: [place] [facility] [place] [address] [address] Performing Lab: [place] [place] [address] [address] [place] LIVER FUNCTION BILIRUBIN.T OTAL [MASS/VOLUM E] IN SERUM OR PLASMA 0.3 mg/dL 0.2 - 1.2 07/17 Specimen Type: SERUM No comment entered. Ordering Provider: ROXANA BALDWIN Report Released Date/Time: May 21, 2024 08:43 AM Reporting Lab: [place] [place] [address] [address] Performing Lab: [facility] [place] [facility] [address] [facility] [address] [place] LIPID PANEL FASTING CHOLESTEROL [MASS/VOLUM E] IN SERUM OR PLASMA 157 mg/dL 07/17 Specimen Type: SERUM No comment entered. Ordering Provider: ROXANA BALDWIN Report Released Date/Time: May 21, 2024 08:43 AM Reporting Lab: [facility] [address] [facility] [address] Performing Lab: [facility] [address] [address] [place] LIPID PANEL FASTING TRIGLYCERID E [MASS/VOLUM E] IN SERUM OR PLASMA 74 mg/dL 0 - 150 07/17 Specimen Type: SERUM No comment entered. Ordering Provider: ROXANA BALDWIN Report Released Date/Time: May 21, 2024 08:43 AM Reporting Lab: [address] [address] Performing Lab: [facility] [address] [address] [place] LIPID PANEL FASTING CHOLESTEROL IN LDL [MASS/VOLUM E] IN SERUM OR PLASMA BY CALCULATION 73 mg/dL 0 - 129 07/17 Specimen Type: SERUM No comment entered. Ordering Provider: ROXANA BALDWIN Report Released Date/Time: May 21, 2024 08:43 AM Reporting Lab: [address] [address] Performing Lab: [facility] [address] [address] [place] LIPID PANEL FASTING CHOLESTEROL .TOTAL/CHOL ESTEROL IN HDL [MASS RATIO] IN SERUM OR PLASMA 2.3 07/17 Specimen Type: SERUM No comment entered. Ordering Provider: ROXANA BALDWIN Report Released Date/Time: May 21, 2024 08:43 AM Reporting Lab: [facility] [address] [address] Performing Lab: [address] [address] [place] LIPID PANEL FASTING CHOLESTEROL IN HDL [MASS/VOLUM E] IN SERUM OR PLASMA 69 mg/dL 40 07/17 Specimen Type: SERUM No comment entered. Ordering Provider: ROXANA BALDWIN Report Released Date/Time: May 21, 2024 08:43 AM Reporting Lab: [address] [address] Performing Lab: [address] [address] [facility] Vital Signs Combined list of inpatient and outpatient Vital Signs from Department of Defense and [facility], ranging from 12 months to all on record, depending upon the facility. Vital Sign Value Date Comments Source SYSTOLIC BLOOD PRESSURE 150 06/26/2024 10:34:28 [place] DIASTOLIC BLOOD PRESSURE 80 06/26/2024 10:34:28 [place] PULSE OXIMETRY 96 06/26/2024 10:34:28 [place] WEIGHT 120 06/26/2024 10:34:28 [place] BMI 20 kg/m2 06/26/2024 10:34:28 [place] PULSE 93 06/26/2024 [facility]34:[facility] SYSTOL[facility]LO[facility] PRESSURE 146 04/17/2024 10:09:34 [place] DIASTOLIC BLOOD PRESSURE 73 04/17/2024 10:09:34 [place] PULSE OXIMETRY 98 04/17/2024 10:09:34 [place] PULSE 94 04/17/2024 10:09:[facility] SYSTOLIC BLOOD PRESSURE 146 01/29/2024 10:33:16 [place] DIASTOLIC BLOOD PRESSURE 76 01/29/2024 10:33:16 [place] PULSE OXIMETRY 99 01/29/2024 10:33:16 [place] WEIGHT 121.2 01/29/2024 10:33:16 [place] BMI 20 kg/m2 01/29/2024 10:33:16 [place] TEMPERATURE 97.6 01/29/2024 10:33:16 [place] PULSE 88 01/29/2024 10:33:16 [place] Encounters Combined list of: 1) Encounters from Department of Veterans Affairs facilities going backup to the last 18 months, not all [place] inpatient encounters are included; 2) Encounters from the Department of Defense facilities going backup to 280 months. Location Location Details Encounter Type Encounter Number Reason For Visit Attending Provider ADM Date DC Date Status Disposition Source [place] OFFICE O/P EST LOW 20-29 MIN [id number] Diagnos is: ICD-10- CM M25.561 Pain in right knee AYLA,CAR MEN F 02/16 [place] [facility] IVNTJ GRP EA ADDL [id number] 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, as defined in [place] MICHAEL LENNON 02/17 [place] [facility] [place] [facility] [place] [facility] [place] Outpatient Encounter [id number] 03/01 [facility] IVNTJ GRP EA ADDL [id number] 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, as defined in [place] MICHAEL LENNON 03/10 [place] [facility] [place] [facility] [place] [facility] [place] [facility] [place] Outpatient Encounter [id number] 03/15 [facility] [place] [facility] [place] [facility] [place] OFFICE O/P EST HI 40-54 MIN [id number] 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, as defined in [place] LISET BAUMAN 03/16 [facility] [place] [facility] [place] [facility] [place] [place] FIT SPECTACLES MONOFOCAL [id number] Diagnos is: ICD-10- CM Z46.0 Encount er for fit/adj st of spectac les and contact lenses LISET BAUMAN 03/16 [facility] Out[facility] Encounter [id number] 04/11 [facility] HLTH [facility]HV IVNTJ GRP EA ADDL [id number] 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, as defined in [facility] MICHAEL LENNON M 04/14 [facility] HC PRO PHONE CALL 21-30 MIN [id number] 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, as defined in [facility] 04/18 [facility] [place] [place] [facility] [place] OFFICE O/P EST LOW 20 MIN [id number] Diagnos is: ICD-10- CM L60.3 Nail dystrop hy JEANETTE GALVAN ES F 04/20 [place] [facility] HLTH BHV IVNTJ GRP EA ADDL [id number] 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, as defined in [facility] 04/28 [facility] Out[facility] Encounter [id number] 04/28 [facility] SENSORY INTEGRATIO N [id number] 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, as defined in [facility] 05/01 [facility] Encounter [id number] 05/05 [facility] [place] Encounter [id number] 05/05 [facility] [place] Encounter [id number] 05/10 [facility] [place] Encounter [id number] 05/11 [facility] [place] [place] [facility] [place] HLTH BHV IVNTJ GRP EA ADDL [id number] 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, as defined in [place] MICHAEL LENNON 05/12 [facility] [place] [place] [place] Out[place] Encounter [id number] 05/15 [facility] [place] [place] OFFICE O/P [place] HI 40 MIN [id number] Diagnos is: ICD-10- CM E11.9 Type 2 diabete s mellitu s without complic ations CHER GASPAR 05/19 [facility] [place] [facility] (631GE) QNHP OL DIG ASSMT&MGMT 5-10 [id number] Diagnos is: ICD-10- CM E11.9 Type 2 diabete s mellitu s without complic ations LEONARD MITCHELL 05/19 [facility] (631GE) [facility] [place] [place] Outpatient Encounter [id number] 05/21 [facility] [place] [place] Outpatient Encounter [id number] Diagnos is: ICD-10- CM E11.40 Type 2 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, unsp CHER GASPAR CE 05/23 [facility] HC PRO PHONE CALL 21-30 MIN [id number] 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, as defined in [facility] 05[facility]23 [facility] Out[facility] Encounter [id number] 06/01 [facility] [place] [place] [place] SENSORY INTEGRATIO N [id number] 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, as defined in [facility] T 06/01 [facility] [place] [place] [place] CASE MANAGEMENT [id number] 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, as defined in [facility] 06[facility]05 [facility] HLTH BHV IVNTJ GRP EA ADDL [id number] MICHAEL LENNON 06/08 [facility] Out[facility] Encounter [id number] 06/08 [facility] [place] HLTH BHV IVNTJ GRP EA ADDL [id number] 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, as defined in [facility] 06/22 [facility] HLTH BHV IVNTJ GRP EA ADDL [id number] 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, as defined in [facility] MICHAEL LENNON 06/29 [facility] [place] OFFICE O/P EST LOW 20 MIN [id number] Diagnos is: ICD-10- CM L60.3 Nail dystrop hy ROSS,JEANETTE ES F 07/12 [facility] [place] [facility] HLTH BHV IVNTJ GRP EA ADDL [id number] 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, as defined in [facility] MICHAEL LENNON M 07/13 [facility] Out[facility] Encounter [id number] 07/17 [facility] [place] OFF[place] O/P EST MOD 30 MIN [id number] Diagnos is: ICD-10- CM I10 Essenti al (primar y) hyperte nsion STELEA,CAR MEN F 07/23 [facility] [place] [facility] HLTH BHV IVNTJ GRP EA ADDL [id number] 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, as defined in [facility] 07/27 [facility] HEARING AID EXAM BOTH EARS [id number] Diagnos is: ICD-10- CM H90.3 Sensori neural hearing loss, bilater al Arjun WITT E 07/27 [facility] EXTENDED VISUAL FIELD XM [id number] 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, as defined in [facility] LISET BAUMAN Sonia 07/27 [facility] FUNDUS PHOTOGRAPH Y W/I&R [id number] 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, as defined in [place] [facility] Candi Scott 07/27 [facility] [place] 1 [id number] 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, as defined in [facility] LISET BAUMAN 07/27 [facility] [place] [facility] PRO PHONE CALL 11-20 MIN [id number] 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, as defined in [place] SANDY LENNON ISTOPHER T 08/03 [facility] [place] [facility] [id number] Diagnos is: ICD-10- CM Z46.1 Encount er for fitting and adjustm ent of hearing aid FELIX VALERO 08/21 [facility] [place] En[place] [id number] Diagnos is: ICD-10- CM E11.9 Type 2 diabete s mellitu s without complic ations ERIC FRANCIS 08/31 [facility] [place] OFFICE O/P EST HI 40 MIN [id number] Diagnos is: ICD-10- CM E11.9 Type 2 diabete s mellitu s without complic ations CHER GASPAR CE 08/31 [facility] [place] En[place] [id number] 08/31 [facility] CONT GLUC MNTR ANALYSIS I&R [id number] Diagnos is: ICD-10- CM E11.9 Type 2 diabete s mellitu s without complic ations CHER GASPAR CE 08/31 [facility] (631GE) QNHP OL DIG ASSMT&MGMT 5-10 [id number] [id number] Diagnos is: ICD-10- CM E11.9 Type 2 diabete s mellitu s without complic ations LEONARD MITCHELL 09/03 [facility] (631GE) [facility] [place] [facility] IVNTJ GRP EA ADDL [id number] 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, as defined in [place] MICHAEL LENNON 09/14 [facility] [place] [facility] [place] [facility]HV IVNTJ GRP EA ADDL [id number] 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, as defined in [place] SANDY LENNON 09/21 [facility] [place] [facility] [id number] 09/25 [facility] [place] [facility] [id number] 10/18 [facility] [place] OFFICE O/P EST MOD 30 MIN [id number] Diagnos is: ICD-10- CM L60.3 Nail dystrop hy JEANETTE GALVAN ES F 10/18 [place] [facility] En[facility] [id number] [facility] Encounter [id number] 10/25 [facility] HLTH BHV IVNTJ GRP EA ADDL [id number] 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, as defined in [facility] 10[facility] HL[facility] BHV IVNTJ GRP EA ADDL [id number] 1. 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, as defined in [facility] MICHAEL LENNON 11/09 [facility] HLTH BHV IVNTJ GRP EA ADDL [id number] 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, as defined in [facility] 11[facility]23 [facility] 15 MIN [id number] Diagnos is: ICD-10- CM E11.9 Type 2 diabete s mellitu s without complic ations TYRON HARRIS IE 12/04 [place] [facility] TRN PER INDIV [id number] Diagnos is: ICD-10- CM E11.9 Type 2 diabete s mellitu s without complic ations LARISA PEREZ MAXISAVANNAH [place] MTMS BY PHARM ADDL 15 MIN [id number] Diagnos is: ICD-10- CM E11.9 Type 2 diabete s mellitu s without complic ations KIMBERLY,TYRON IE 12/17 [place] [facility] [id number] 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, as defined in [place] CHRISTIANO MACEDO 12/28 [facility] [place] [facility] ADDL [id number] 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, as defined in [place] MICHAEL LENNON 01/11 [facility] [place] [place]patient Encounter [id number] 1BY. 15 01/21 [place] [facility] PRO PHONE CALL 5-10 MIN [id number] 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, as defined in [place] MICHAEL LENNON 01/21 [facility] [place] [place] MTMS BY PHARM WIRE WELDER 15 MIN [id number] Diagnos is: ICD-10- CM E11.9 Type 2 diabete s mellitu s without complic ations KIMBERLY,TYRON IE 01/23 [place] [facility] [place]patient Encounter [id number] 1.01/24 [facility] [place] [facility] [place] Outpatient Encounter [id number] 01/25 [facility] [place] [facility]TH BHV IVNTJ GRP EA ADDL [id number] 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, as defined in [place] SANDY LENNON T 01/25 [facility] [place] [place] OFFICE O/P EST MOD 30 MIN [id number] Diagnos is: ICD-10- CM N18.9 Chronic kidney disease , unspeci fied AYLACAR MEN F 01/28 [place] [facility] [place] ADMIN [id number] 1. ARASH AGUILA MEN F 01/28 [facility] [place] [facility] [place] Outpatient Encounter [id number] MICHAEL LENNON M 02/01 [facility] [place] [facility] [place] Outpatient Encounter [id number] 02/01 [facility] [place] MTMS BY PHARM WIRE WELDER 15 MIN [id number] [id number] Diagnos is: ICD-10- CM E11.9 Type 2 diabete s mellitu s without complic ations TYRON HARRIS IE 02/06 [place] DI[facility]NA[facility] TRN PER INDIV [id number] 1BY. 13 Diagnos is: ICD-10- CM E11.9 Type 2 diabete s mellitu s without complic ations LARISA PEREZ P 02/13 [place] [facility] PRO PHONE CALL 11-20 MIN [id number] 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, as defined in [facility] T 02/19 [place] [facility] [place] [place] [facility] FIT SPECTACLES MONOFOCAL [id number] Diagnos is: ICD-10- CM Z46.0 Encount er for fit/adj st of spectac les and contact lenses CHER DODSON 02/19 [place] [facility] [place] [place] [facility] [place] [place] OFFICE O/P EST LOW 20 MIN [id number] Diagnos is: ICD-10- CM L60.3 Nail dystrop hy JEANETTE GALVAN F 02/21 [place] [place] [facility] [place] GROUP THERAPEUTI C PROCEDURES [id number] 1. 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, as defined in [facility] 02[facility]22 [place] [facility] [place] [facility] FALL RISK ASSESSMENT DOCD [id number] 1. 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, as defined in [facility] MICHAEL LENNON 02/27 [place] [facility] [place] [place] [facility] GROUP THERAPEUTI C PROCEDURES [id number] 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, as defined in [facility] MICHAEL LENNON 03/04 [place] [facility] [place] [facility] [place] PSYTX W PT 30 MINUTES [id number] 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, as defined in [facility] Sonia BAKER 03/06 [place] MTMS BY PHARM WIRE WELDER 15 MIN [id number] [id number] Diagnos is: ICD-10- CM E11.329 9 Type 2 diab with mild nonp rtnop without macular edema, unsp KIMBERLY,TYRON IE 03/08 [place] Outpatient Encounter [id number] 03/08 [place] [facility] GROUP THERAPEUTI C PROCEDURES [id number] 1. 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, as defined in [facility] MICHAEL LENNON 03/15 [facility] [place] QNHP OL DIG ASSMT&MGMT 5-10 [id number] 1BY. 46 Diagnos is: ICD-10- CM E11.9 Type 2 diabete s mellitu s without complic ations EPPSMAHENDRA NICOLE Brad 03/19 [place] [facility] Outpatient Encounter [id number] 03/20 [facility] HC PRO PHONE CALL 21-30 MIN [id number] 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, as defined in [facility] SANDY LENNON ISTOPHER T 03/20 [facility] HC PRO PHONE CALL 11-20 MIN [id number] 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, as defined in [facility] 03/25 [facility] [place] PSYTX W PT 30 MINUTES [id number] [id number] 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, as defined in [place] Sonia BAKER 04/05 [place] [facility] GROUP THERAPEUTI C PROCEDURES [id number] 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, as defined in [facility] MICHAEL LENNON 04/12 [place] [facility] [place] [place] [facility] [place] OFFICE O/P EST HI 40 MIN [id number] [id number] Diagnos is: ICD-10- CM G25.0 Essenti al JAKY Arnold C 04/17 [facility] [place] [facility] [place] [place] [facility] [place] GROUP THERAPEUTI C PROCEDURES [id number] 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, as defined in [facility] T 04/26 [place] [facility] [place] [place] [facility] MTMS BY PHARM WIRE WELDER 15 MIN [id number] [id number] Diagnos is: ICD-10- CM E11.9 Type 2 diabete s mellitu s without complic ations TYRON HARRIS IE 05/03 [facility] [place] [facility] [place] GROUP THERAPEUTI C PROCEDURES [id number] 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, as defined in [facility] MICHAEL LENNON 05/17 [place] [facility] [place] [place] [facility] PH1 ASSMT&MGMT NQHP 11-20 [id number] 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, as defined in [facility] T 05/21 [place] [facility] [facility] [place] [facility] RPR&REFITG SPECT XCP APHAKIA [id number] Diagnos is: ICD-10- CM Z46.0 Encount er for fit/adj st of spectac les and contact lenses Brad THOMPSON 05/29 [facility] GROUP THERAPEUTI C PROCEDURES [id number] 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, [place] defined in [place] MICHAEL LENNON M 06/14 [facility] Out[facility] En[facility] [id number] 06/16 [facility] Encounter [id number] 06/17 [facility] Out[facility] Encounter [id number] 06/21 [facility] Out[facility] Encounter [id number] 06/24 [facility] [place] OFF[place] O/P EST MOD 30 MIN [id number] [id number] Diagnos is: ICD-10- CM D50.9 Iron deficie ncy anemia, unspeci fiMyranda Tavera M 06/26 [place] OFFICE O/P EST LOW 20 MIN [id number] Diagnos is: ICD-10- CM L60.3 Nail dystrop hy ROSS,CHARL ES F 06/27 [place] [facility] Out[facility] Encounter [id number] 06/28 [facility] GROUP THERAPEUTI C PROCEDURES [id number] 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 07/08 [facility] [place] MTMS BY PHARM WIRE WELDER 15 MIN [id number] [id number] Diagnos is: ICD-10- CM E11.9 Type 2 diabete s mellitu s without complic ations TYRON HARRIS IE 07/09 [place] [facility] Outpatient Encounter [id number] 07/11 [facility] [place] GROUP THERAPEUTI C PROCEDURES [id number] 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, [place] defined in [place] MICHAEL LENNON 07/12 [facility] Out[facility] Encounter [id number] 07/17 [facility] [place] DIAB MANAGE TRN PER INDIV [id number] Diagnos is: ICD-10- CM E11.9 Type 2 diabete s mellitu s without complic ations LARISA PEREZ DEDRA P 07/17 [facility] [place] [facility] [place] Encounter [id number] 07/19 [facility] GROUP THERAPEUTI C PROCEDURES [id number] 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, as defined in [place] SANDY LENNON ISTOP T 07/26 [facility] [place] [id number] 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, as defined in [place] LISET BAUMAN 08/06 [facility] GROUP THERAPEUTI C PROCEDURES [id number] 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, as defined in [place] MICHAEL LENNON 08/09 [facility] [place] Outpatient Encounter [id number] 08/13 [facility] [place] [place] [facility] [place] Social History Combined list of available smoking, tobacco, and other social history from Department of Defense and Veterans Affairs facilities. Social History Type Response Date Comment Source Tobacco smoking status [facility] VA-TOBACCO NEVER USED 01/29/2024 [facility] [place] [facility] [place] [facility] of [facility] 01/20/2023 [place] History of tobacco use [place] QUIT 5 TO < 15 YRS 03/29/2021 [place] History of tobacco use [facility]-TOBACCO FORMER USER 12/19/2019 [facility] [place] [facility] [place] History of tobacco use [facility]-TOBACCO FORMER USER 07/12/2018 [place] History of tobacco use QUIT TOBACCO USE > 7 YEARS AGO 07/04/2017 stopped 7-10 years ago [place] History of tobacco use QUIT TOBACCO USE 1-7 YEARS AGO 10/19/2016 [place] History of tobacco use QUIT TOBACCO USE 1-7 YEARS AGO 02/01/2016 1.5 yrs. [place] History of tobacco use QUIT TOBACCO USE 1-7 YEARS AGO 12/11/2014 [place] History of tobacco use CURRENT SMOKER 02/17/2014 2 CIGARS A DAY [place] Plan of Care List of future care activities from [facility] facilities. Additional future care activities may be listed in the Assessment and Plan section. Date/Time Care Activity Care Activity Detail Facili ty 08/29/2024 AMBULATORY - REHAB MEDICINE AMBULATORY [facility]ICINE [facility] Advance Directives List of completed, amended, or rescinded Advance Directives on record at [facility] facilities. An actual copy of the Directive is not included. Date Advance Directive Provider Source 03/29/2021 [facility]
[2024-08-14 13:50] VITALS: BP 120/64; PULSE 87; TEMP 36.9; O2SAT 94; BMI 20.8
--- NOTE | 2024-08-14 13:50 | AM.OFFWIN_ITS ---
Intake Vital Signs 08/14/24 13:50 Height 5 ft 5 in Weight 125 lb BMI 20.8 BP 120/64 Blood Pressure Location Lt brachial Position Sitting Pulse 87 Pulse Source Pulse Oximeter Temp 98.5 F Temp Source Oral Pulse Oximetry (%) 94 Oxygen Delivery Method Room Air Intake Visit Reasons: EP-rt hand dog bite Patient Tobacco Use Status: Former Tobacco user Allergies No Known Allergies Allergy (Verified 08/14/24 13:50) Do you need a note to return to daycare/school/sports/work: No HPI HPI Comments History of Present Illness Details History of Present Illness - The patient is a 74-year-old male pres enting with a dog bite injury to the right hand occurring yesterday. - Initial self-care included hydrogen pe roxide application and bandaging. - The patient reports swelling, pain, an d mucus-like discharge from the wounds, particularly affecting the fingers and inhibiting hand movement. - His prior tetanus vaccination was eliceo rded in 2018. - The dog's rabies vaccination is uncert ain, the dog belongs to their son and is 2 years old and likely is UTD however vet is closed today so they could not confirm. Physical Exam General: Cooperative, healthy appearing, comfortable, no acute distress and well developed Orientation: Patient oriented x3 Limitations: Limited movement in the right hand due to pain and swelling Head: Normal to inspection Ears: Hearing grossly normal bilaterally Nose: Normal External nose present Face and sinus: Normal facial exam Eyes: Vision impaired Neck: Normal visual inspection and Yes full ROM Respiratory: Normal respiratory effort and able to speak in complete sentences. Skin: No rashes or lesions noted, but right hand is swollen, warm, and infected with multiple dog bite bran Neuro: Patient oriented x3 Extremities: Right hand with edema, warmth and 4 wounds. 2 small bite-like bran on dorsal aspect of right hand/wrist, no drainage noted. 1.5cm linear laceration with purulent exudate noted on right volar aspect of right wrist. all digits NVI, full ROM though with some pain 2/2 edema. [facility] Medical History Peripheral neuropathy Diabetes Hyperlipidemia HTN (hypertension) Surgical History History of colonoscopy Social History Household Members: Family Housing: House Patient Tobacco Use Status: Former Tobacco user Cigarettes Per Day: 1 Advance Directives Date on File: 05/05/19 service: No Review of Systems Const All systems reviewed & are unremarkable except as noted in HPI and below Physical Exam Vital Signs: Last Vital Signs Temp 98.5 F 08/14/24 13:50 Pulse 87 08/14/24 13:50 BP 120/64 08/14/24 13:50 Pulse Ox 94 08/14/24 13:50 Oxygen Delivery Method Room Air 08/14/24 13:50 BMI result Body Mass Index 20.8 Immunizations Boostrix Tdap 2.5 Lf unit-8 mcg-5 Lf/0.5 mL intramuscular syringe Performing Provider: Ella Coleman PA-C Performing Location: [facility]-In Care[facility] Administered by: RUTHY Townsend on 08/14/24 14:48 Dose Route Admin Location Dispensed Lot Number Expiration Date [facility] Brush Cutter 0.5 mL IM Right Deltoid 0.5 mL [id number] 07/20/26 39845-401-68 [employer] VIS Given Date VIS Provided VIS Publication Date 08/14/24 Single Vaccine 20 Eligibility Eligibility Date Funding Source Not [facility] Eligible 08/14/24 Private Assessment & Plan Assessment & Plan (1) Dog bite of right hand with infection: Code(s): S61.451A - Open bite of right hand, initial encounter; L08.9 - Local infection of the skin and subcutaneous tissue, unspecified; W54.0XXA - Bitten by dog, initial encounter Qualifiers: Encounter type: initial encounter Qualified Code(s): S61.451A - Open bite of right hand, initial encounter; L08.9 - Local infection of the skin and subcutaneous tissue, unspecified; W54.0XXA - Bitten by dog, initial encounter Plan: 10 days Augmentin sent to pharmacy. Pain management is pursued through Naproxen with a recommended dosage of 500 mg bi-daily, RX sent. For better recovery, wound soaking in Epsom salts twice daily is advised, keeping the hand clean and dry, covering wounds while out in public, can apply Neosporin twice daily. A referral to an orthopedic hand specialist is scheduled for a comprehensive evaluation due to infected dog bite of hand. The patient understands it is very important to follow-through on confirming his dog's vaccination status can potentially impact the need for rabies prophylaxis. He is aware to call us if he needs this so we can facilitate it, if the dog is not up to date on his rabies. I did call [facility] and it is closed today. Patient was informed and verbally consented to the use of an ambient scribe for clinic note documentation during this visit. Orders: Orders TDaP Immunization Today L08.9 - Local infection of the skin and subcutaneous tissue, unspecified, S61.451A - Open bite of right hand, initial encounter, W54.0XXA - Bitten by dog, initial encounter Referrals Orthopedics Referral L08.9 - Local infection of the skin and subcutaneous tissue, unspecified, S61.451A - Open bite of right hand, initial encounter, W54.0XXA - Bitten by dog, initial encounter Medications: New amoxicillin-pot clavulanate 875-125 mg 1 tab PO Q12H 20 tabs 0RF naproxen 500 mg PO Q12H PRN 20 tabs 0RF pain Coding Level of Care Code New Pt Level 4 (73562) Diagnoses Dog bite of right hand with infection, initial encounter S61.451A; L08.9; W54.0XXA Encounter type: initial encounter
--- OUTSIDE RECORDS SUMMARY | 2024-08-14 13:50 | XMS_ITS ---
Author Name [facility] [place] [facility] [place] Address [address] [place] [id number] Care Team Providers Care Wellness Trainer Name Role Phone TRESSA BOND Primary Care [...] PART B Jan 01, 2014 PART B [id number] [place] PATIENT MEDICARE (WNR) MEDICARE (M) PART B Jan 01, 2014 PART B [id number] [place] PATIENT MEDICARE (WNR) MEDICARE (M) PART A May 04, 2013 PART A [id number] [place] K[place] PATIENT MEDICARE (WNR) MEDICARE (M) PART A May 04, 2013 PART A [id number] [place] K[place] PATIENT [facility] (R) MEDICARE ADVANTAGE [facility] ([facility]) Apr 03, 2016 [facility] ([facility]) [id number] [phone] NEILAL,PARISH REAL PATIENT Selected Encounter This section includes the information on record at CT for the Encounter. Date/Time Encounter Type Encounter Description Reason Pro vider Source August 13, 2024 12:00 AM Outpatient Encounter COMMUNITY CARE CONSULT IHE Encounter Template Text not used by CT Plan of Treatment: Future Appointments (+ 6 months) and Future Tests (+/- 45 days) The Plan of Treatment section includes future care activities for the patient from all CT treatmentfacilities. This section includes future appointments and future orders which are active, pending or scheduled. Future Appointments This section includes appointments that were scheduled to occur 6 months from the date of the Encounter, up to a maximum of 20 appointments. The data comes from all CT treatment facilities. Appointment Date/Time Appointment Type Appointme nt Facility Name August 29, 2024 11:00 AM AMBUL[facility] - [facility] Sep 25, 2024 10:00 AM [facility] Oct 02, 2024 10:30 AM [facility] Oct 16, 2024 10:00 AM [facility]ATORY - MEDICINE [facility] Dec 25, 2024 11:00 AM [facility]ATORY - MEDICINE [facility] Active, Pending, and Scheduled Orders This section includes a listing of several types of active, pending, and scheduled orders, including clinic medications orders, diagnostic test orders, procedure orders and consult orders; where the start date of the order is 45 days before the date of the Encounter or 45 days after the date of theEncounter. The data comes from all CT treatment facilities. Test Date/Time Test Type Test Details Facility Name Jul 08, 2024 04:41 PM Consult Order COMMUNITY CARE-NEPHROLOGY Cons [employer] [facility] Lab Results: +/- 30 days of the encounter This section includes the Chemistry and Hematology Lab Results on record with CT for the patient. Radiology Reports and Pathology Reports are provided separately, in subsequent sections. Lab Results This section contains the Chemistry/Hematology Results that were resulted 30 days before or 30 daysafter the date of the Encounter. Date/Time Source Result Type Result - Unit Interpretation Reference Range Specimen Type Comment Jul 17, 2024 11:14 AM [facility] FERRITIN SERUM Specimen Type: SERUM No comment entered. Ordering Provider: JAYDEN BOND Report Released Date/Time: Jul 04, 2024 10:36 AM Reporting Lab: [facility] [address] [facility] [address] Performing Lab: [facility] [address] [facility] [address] FERRITIN 144.3 ng/mL 21.8-274.7 Jul 17, 2024 11:14 AM [facility] CBC AND DIFF (AUTO) BLOOD Specimen Type: BLOO D No comment entered. Ordering Provider: TRESSA BOND Report Released Date/Time: Jul 04, 2024 10:36 AM Reporting Lab: [facility] [address] [facility] [address] Performing Lab: [facility] [address] [facility] [address] WBC 10.23 10*3/uL 4.50-11.00 RBC 3.66 10*6/uL [...] 10*3/uL 0.00-0.00 Jul 17, 2024 11:14 AM [facility] VITAMIN D (25-OH) SERUM Specimen Type : SERUM No comment entered. Ordering Provider: DARLIN BALDWIN Report Released Date/Time: May 21, 2024 08:43 AM Reporting Lab: [facility] [address] [address] Performing Lab: [address] [address] VITAMIN D (25-OH) 13.6 ng/mL L 20-50 Jul 17, 2024 11:14 AM [facility] MAGNESIUM SERUM Sp ecimen Type: SERUM No comment entered. Ordering Provider: DARLIN BALDWIN Report Released Date/Time: May 21, 2024 08:43 AM Reporting Lab: [address] [address] Performing Lab: [address] [address] MAGNESIUM 1.5 mg/dL L 1.6-2.6 Jul 17, 2024 11:14 AM [facility] IRON & TIBC PANEL SERUM Specimen Type : SERUM No comment entered. Ordering Provider: DARLIN BALDWIN Report Released Date/Time: May 21, 2024 08:43 AM Reporting Lab: [address] [address] Performing Lab: [facility] [address] [address] TIBC 268 ug/dL 204-475 IRON 76 ug/dL 65-175 Transferrin Saturation 28.4 15-45 Transferrin (TRF) 203 mg/dL 180-382 Jul 17, 2024 11:14 AM [facility] TSH SERUM Sp ecimen Type: SERUM No comment entered. Ordering Provider: DARLIN BALDWIN Report Released Date/Time: May 21, 2024 08:43 AM Reporting Lab: [address] [address] Performing Lab: [facility] [address] [address] TSH 1.19 u[IU]/mL 0.35-4.94 Jul 17, 2024 11:14 AM [facility] HEMOGLOBIN A1C PANEL BLOOD Specimen T ype: [...] May 21, 2024 08:43 AM Reporting Lab: [address] [address] Performing Lab: [address] [address] HEMOGLOBIN A1C 7.5 H 4.0-5.6 Jul 17, 2024 11:14 AM [facility] BASIC METABOLIC PANEL (fasting) SERUM Specimen Type: SERUM No comment entered. Ordering Provider: DARLIN BALDWIN Report Released Date/Time: May 21, 2024 08:43 AM Reporting Lab: [address] [address] Performing Lab: [address] [address] UREA NITROGEN 22 mg/dL 8-26 GLUCOSE 114 mg/dL H 65-100 SODIUM 132 mmol/L L 136-145 POTASSIUM 4.8 mmol/L 3.5-5.1 CHLORIDE 100 mmol/L 98-107 CO2 25 meq/L 23-31 CALCIUM 9.1 mg/dL 8.8-10 CREATININE, Serum 1.06 mg/dL 0.72-1.25 eGFR(CKD-EPI 2020) 73 mL/min >60 Jul 17, 2024 11:14 AM [facility] LIVER FUNCTION SERUM Specimen Type: SERUM No comment entered. Ordering Provider: DARLIN BALDWIN Report Released Date/Time: May 21, 2024 08:43 AM Reporting Lab: [address] [address] Performing Lab: [address] [address] PROTEIN,TOTAL 7.5 g/dL 6.4-8.3 ALBUMIN 3.4 g/dL 3.2-4.6 ALKALINE PHOSPHATASE 112 U/L 40-150 AST 30 U/L 5-34 ALT 15 U/L BILIRUBIN, TOTAL 0.3 mg/dL 0.2-1.2 Jul 17, 2024 11:14 AM [facility] LIPID PANEL FASTING SERUM Specimen Ty pe: SERUM No comment entered. Ordering Provider: DARLIN BALDWIN Report Released Date/Time: May 21, 2024 08:43 AM Reporting Lab: [address] [address] Performing Lab: [address] [address] CHOLESTEROL 157 mg/dL TRIGLYCERIDE 74 mg/dL 0-150 LDL calculated 73 mg/dL 0-129 CHOL/HDL 2.3 HDL CHOLESTEROL 69 mg/dL >40 Jul 17, 2024 11:14 AM [facility] PSA SERUM Sp ecimen Type: SERUM No comment entered. Ordering Provider: DARLIN BALDWIN Report Released Date/Time: May 21, 2024 08:43 AM Reporting Lab: [address] [address] Performing Lab: [address] [address] PSA 1.0 ng/mL 0.0-4.0 Social History: Smoking Status (Most current) and Tobacco Use (All prior to encounter date) This section includes the most current, and the historical, smoking and tobacco- related health factors from the CT facility where the Encounter took place. Current Smoking Status This section includes the most current smoking, or tobacco-related health factor, from the CT facility where the Encounter took place. Date/Time Current Smoking Status Comment Facil ity Jan 29, 2024 10:34 AM [facility]-TO[facility]ACCO NEVER USED [facility] Tobacco Use History This section includes a history of the smoking, or tobacco-related health factors, that were collected on or before the date of the Encounter. The data comes from the CT facility where the Encounter took place. Date/Time Smoking Status/Tobacco Use Comment F acility Dec 19, 2019 12:[address]-TOBACCO FORMER USER [facility] Dec 19, 2019 12:[address]-TOBACCO QUIT 1 TO < 5 YRS [facility] Advance Directives: All historical and current Section Date Range: From patient's date of to the date document was created. This section includes ALL of a patient's completed or amended CT Advance and Rescinded Directives. The entries below indicate that a directive exists for the patient, but an actual copy is not included with this document. The data comes from all CT facilities. Date Advance Directives Provider Source Mar 29, 2021 ADVANCE DIRECTIVE [place] [facility]ORY [facility] Radiology Reports: +/- 30 days of [...] the Encounter. The data comes from all CT treatment facilities. Date/Time Radiology Report Provider Source August 06, 2024 10:50 AM CHEST (2 VIEWS): NEILKULDIP SALDANARICOMIRELA BURNETT [id number] -1950 M Exm Date: AUGUST 06, 2024@10:50 Req Phys: TRESSA BOND Pat Loc: [facility]/NO/BLIND REHAB TELE (Req Img Loc: [facility] 1 Service: Unknown [place] [address] (Case [id number] COMPLETE) CHEST (2 VIEWS) (RAD Detailed) CPT:52719 Reason for Study: Recent pneumonia Clinical History: IDDM, Report Status: Verified Date Reported: AUGUST 06, 2024 Date Verified: AUGUST 06, 2024 Engineer Technician E-Sig:/ES/BETTY BURT JR Report: Study: PA and [...] Primary Interpreting Staff: BETTY BURT JR, Radiologist (Engineer Technician) /EABETTY BALBUENA JR [facility] Encounter Notes: All associated encounter notes This section contains the clinical notes associated to the Encounter. Date/Time Encounter Note(s) Provider Source August 13, 2024 12:00 AM NONVA CONSULT: LOCAL TITLE: COMMUNITY CARE-CONSULT RESULT NOTE STANDARD TITLE: NONVA CONSULT DATE OF NOTE: AUGUST 13, 2024 ENTRY DATE: AUGUST 14, 2024@08:40:29 AUTHOR: GWEN HERRON MA EXP COSIGNER: URGENCY: STATUS: COMPLETED VistA Imaging - Scanned Document SCANNED DOCUMENT SIGNATURE NOT REQUIRED Electronically Filed: 08/14/2024 by: GWEN HERRON INTERIOR MECHANIC GWEN HERRON [facility]
== END 2024-08-14 14:45 | disposition home or self-care (01) ==
PROVIDERS: PCP General Practice; Visit Provider Physician Assistant
DX: S61.451A Open bite of right hand, initial encounter (principal); L08.9 Local infection of the skin and subcutaneous tissue, unspecified; W54.0XXA Bitten by dog, initial encounter

== ENCOUNTER → 2024-08-14 13:45 | Outpatient (BNVA) | payer MEDICARE, SELFPAY | PROVIDERS: PCP General Practice; Visit Provider Physician Assistant | DX: Z23 Encounter for immunization (principal); S61.451A Open bite of right hand, initial encounter; W54.0XXA Bitten by dog, initial encounter; L08.9 Local infection of the skin and subcutaneous tissue, unspecified | CPT/HCPCS: 90471; 90715; 99202 ==

== ENCOUNTER 2024-08-16 11:21 | Inpatient (IN) | payer OTHER, SELFPAY ==
--- NOTE | ~2024-08-16 | XR_ITS ---
EXAMINATION: XR HAND, RIGHT CLINICAL INFORMATION: dog bite, cellulitis COMPARISON: None available. TECHNIQUE: PA, lateral, and oblique views of the right hand. FINDINGS: There is normal bone mineralization. There is no fracture, dislocation, or suspicious bone lesion. There is normal alignment. 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 Moderate degenerative arthrosis at the first CMC joint. There is blunting of the ulnar styloid, nonspecific. There is dorsal soft tissue swelling present. No subcutaneous emphysema. XR/XR hand RT 2V IMPRESSION: 1. No acute bony abnormalities. 2. Dorsal soft tissue swelling. Electronically signed by: Price Su MD 08/16/2024 03:38 PM EDT
[2024-08-16 11:32] VITALS: BP 137/76; PULSE 111; RESP 18; TEMP 36.6; O2SAT 97; BMI 21.2
--- NOTE | 2024-08-16 11:32 | ED.ANIMALBIT ---
HPI - Animal Bite General Chief Complaint: Animal Bite Stated Complaint: dog bite sent from nc Time Seen by Provider: 08/16/24 14:43 Source: patient and family ( at bedside corroborating patient history) Mode of arrival: ambulatory Limitations: other (visually impaired ) History of Present Illness ED Provider: Sara Coffman NP HPI narrative: 74 yo male accompanied by , right hand dominant with PMHx of T2DM, HLD, HTN, presents to the ED due to family dog bite. Patient states he was bitten on the right hand by his son's dog 3 days ago (08/13), and believes the dog is UTD with vaccinations. He waited until the following day to get treated where he went to and was started on Augmentin and was given Tetanus shot for treatment. He reports taking 5 doses of Augmentin. [facility] and was found to have progressively worsening erythema and swelling and pain of the dorsal right hand. [facility] further evaluation in the ED due to the extent of swelling and no improvement with ABX, suggested he receive IV ABX treatment. He denies fevers, chills, nausea, vomiting, chest pain, SOB. MD complaint: animal bite Onset (ago): day(s) (3) Animal: dog (family ugandan bull dog) Description of animal: household pet and immunizations UTD Mechanism: bite Location: other (right hand ) Location - Extremities: right: hand Pain description: constant Associated symptoms: erythema and discharge from wound (ventral wound with serous discharge) Treatments prior to arrival: other (Augmentin) Related Data Patient tetanus UTD: Yes Home Medications ?Medication ?Instructions ?Recorded ?Confirmed ferrous sulfate 325 mg (65 mg 325 mg PO DAILY 01/22/20 08/13/24 iron) tablet lisinopril 20 mg tablet 20 mg PO DAILY 01/22/20 08/13/24 primidone 50 mg tablet 50 mg PO BEDTIME 01/22/20 08/13/24 amlodipine 5 mg tablet 5 mg PO DAILY 06/17/24 08/13/24 atorvastatin 80 mg tablet 80 mg PO DAILY 06/17/24 08/13/24 empagliflozin 25 mg tablet 25 mg PO DAILY 06/17/24 08/13/24 (Jardiance) ezetimibe 10 mg tablet 10 mg PO DAILY 06/17/24 08/13/24 fluticasone propionate 50 50 mcg inhalation Q10D 06/17/24 08/13/24 mcg/actuation blister powder for inhalation gabapentin 300 mg capsule 300 mg PO TID 06/17/24 08/13/24 glucose 4 gram chewable tablet 16 g PO NEEDED PRN Low Blood 06/17/24 08/13/24 Sugar insulin glargine-yfgn 100 unit/mL 6 unit subcut BEDTIME 06/17/24 08/13/24 (3 mL) subcutaneous pen omeprazole 20 mg capsule,delayed 20 mg PO DAILY@0630 06/17/24 08/13/24 release sitagliptin 100 mg tablet 100 mg PO DAILY 07/12/24 08/13/24 Previous Rx's ?Medication ?Instructions ?Recorded tamsulosin 0.4 mg capsule (Flomax) 0.4 mg PO BEDTIME #60 caps 06/20/24 magnesium oxide 400 mg PO BID #60 tabs 07/04/24 amoxicillin 875 mg-potassium 1 tab PO Q12H #20 tabs 08/14/24 clavulanate 125 mg tablet naproxen 500 mg tablet 500 mg PO Q12H PRN pain #20 tabs 08/14/24 Allergies Allergy/AdvReac Type Severity Reaction Status Date / Time No Known Allergies Allergy Verified 08/16/24 11:37 Review of Systems Review of Systems: Yes all other systems are reviewed and are negative Constitutional: Constitutional: Reports no additional constitutional complaints, Denies body ache(s), Denies chills, Denies fever(s), Denies headache(s) and Denies weakness Eyes: Eyes: Reports no additional eye complaints and Denies change in vision ENT: Reports system reviewed and no additional complaints, except as documented, Denies dizziness, Denies headache(s), Denies nasal congestion, Denies nasal discharge and Denies neck pain Cardiovascular: Cardiovascular: Reports no additional cardiovascular complaints, Denies chest pain, Denies leg edema and Denies dyspnea Respiratory: Respiratory: Reports no additional respiratory complaints, Denies cough and Denies dyspnea Gastrointestinal: Gastrointestinal: Reports no additional gastrointestinal complaints, Denies abdominal pain, Denies diarrhea, Denies nausea and Denies vomiting Genitourinary: Genitourinary: Denies urinary incontinence Musculoskeletal: Musculoskeletal: Reports no additional musculoskeletal complaints, Denies back pain, Denies arthralgias, Denies joint swelling, Denies neck pain, Denies numbness and Denies tingling Integumentary/Breasts: Skin/Breast: Reports system reviewed and no additional complaints, except as docu, Reports swelling, Reports erythema, Denies rash and Reports wounds Neurologic: Reports system reviewed and no additional complaints, except as documented, Denies Abnormal speech present, Denies dizziness, Denies headache(s), Denies numbness, Denies tingling and Denies weakness [facility] Past Medical History Attestation statement: The following information was validated with the patient. Source: old records reviewed and obtained from family ( at bedside) Medical History Peripheral neuropathy Diabetes Hyperlipidemia HTN (hypertension) Surgical History History of colonoscopy Social History Social History Household Members: Family Housing: House Patient Tobacco Use Status: Former Tobacco user Cigarettes Per Day: 1 Smoked in Last 30 Days: No Use of substances other than those prescribed or required for medical reasons: No Advance Directives: Yes Advance Directives on File: Yes Advance Directives Date on File: 06/21/24 Do you have a plan to hurt others: No Plan service: No Physical Exam ED Vital Signs: Vital Signs - 24 hr 08/16/24 11:32 08/16/24 15:31 Temperature 97.8 F Pulse Rate 111 H 120 H Respiratory Rate 18 18 Blood Pressure 137/76 146/98 H Pulse Oximetry 97 98 Oxygen Delivery Method Room Air Room Air BMI result Body Mass Index 21.2 Const General: cooperative, healthy appearing, comfortable and no acute distress Orientation/consciousness: patient oriented x3 Limitations: other limitations (visually impaired ) HENMT Head: Yes normal to inspection Ears: hearing grossly normal bilaterally General nose exam: Normal external nose present Face and sinus: Yes normal facial exam Mouth: Normal oral and palatal mucosa present Throat: Yes posterior oropharynx normal Eyes General: appearance normal, both eyes and all related structures Pupils: Equal, round and reactive pupils present Neck Neck: Yes normal visual inspection Chest Chest palpation & inspection: normal inspection of the chest Resp Effort & Inspection: normal respiratory effort Auscultation: clear to auscultation bilaterally Cardio Rate: regular rate Rhythm: regular rhythm Peripheral pulses: Peripheral pulses 2+ throughout GI Inspection: Yes normal to inspection Palpation (GI): Soft to palpation and nontender Auscultation: normal bowel sounds Back/Spine/Pelvis Thoracic/Lumbar Spine: thoracic and lumbar spine normal to inspection Skin General skin exam: no rashes or lesions noted Neuro General: patient oriented x3, no focal motor deficits and normal sensation to monofilament Cranial nerves: Yes Equal, round and reactive pupils present Cognition (Neuro): normal cognition Speech: No Abnormal speech present Gait exam (Neuro): Normal gait present Motor exam (neuro): 5/5 motor strength present throughout Extrem Other: Patient has +pulses. He has swelling on exam, warmth, TTP. Puncture sites noted over dorsal and volar aspect. Pain with hyperextension of wrist as well as on palpation over the dorsal hand and wrist. No pain reported over proximal joints. There is streaking up the right forearm along the volar aspect. The puncture site on the volar aspect has serous drainage from site. General: Yes normal to inspection Right upper extremity: full ROM (radial pulse 2+ ), normal capillary refill and Extremity exam: right hand (3 puncture wounds dorsal w/o drainage, 1 ventral wound w/ serous drainage) Details: abnormal to inspection, neuromotor exam normal, neurosensory exam normal, tendon exam normal, tenderness (3 puncture wounds over dorsal hand/wrist without drainage, 1 puncture wound on ventral side with serous drainage) Location: of the dorsal hand, warmth, swelling and puncture wound Course Course Course Narrative: This is a Rapid Medical Exam performed in triage by Lakisha Springer PA-C. Full HPI, ROS and PE to be performed by primary ED provider. 74-year-old male with a past medical history MOISES, diabetes, HTN, HLD, presenting to the ED c/o dog bite 3 days ago - was initially seen at urgent care, given Tdap and started on Augmentin which he has taken 3 days without relief. Dog vaccination status is unknown you, however dog lives with patient. [facility] PE: Right hand/wrist +appreciable swelling and areas slight pus drainage from 1 puncture wound. Plan: Labs, blood cultures Reevaluation(s) Reevaluation #1: Patient has significant edema, erythema, and streaking erythema of the right hand and forearm. Patient has taken 5 doses of Augmentin without effect. Patient started on 1L of IV fluids, Zosyn and vancomycin to cover for infection and correction of MOISES (cratinine at 1.65). Will consult hospitalist for admission and management of infection. Awaiting R hand XR. Time: 15:02 Medications Administered Discontinued Medications Generic Name Dose Route Start Last Admin Trade Name Freq PRN Reason Stop Dose Admin Sodium Chloride 1,000 mls @ 999 mls/hr 08/16/24 15:15 08/16/24 15:29 Ns IV 08/16/24 16:15 999 mls/hr .Q1H1M TAMIE Administration Piperacillin Sod/Tazobactam 50 mls @ 100 mls/hr 08/16/24 15:02 08/16/24 15:50 Sod 3.375 gm/ Sodium Chloride IV 08/16/24 15:31 Infused ONCE ONE Infusion Vancomycin HCl 1,500 mg/ 500 mls @ 333.333 mls/hr 08/16/24 15:02 08/16/24 15:44 Sodium Chloride IV 08/16/24 16:31 333.33 mls/hr ONCE ONE Administration Morphine Sulfate 4 mg 08/16/24 15:07 08/16/24 15:29 Morphine Sulfate 4 Mg/Ml Cartridge IVPUSH 08/16/24 15:08 4 mg ONCE ONE Administration Protocol Medical Decision Making Medical Decision Making [facility] Narrative: 89[birth year]74 yo male accompanied by , right hand dominant with PMHx of T2DM, HLD, HTN, presents to the ED due to family dog bite Vital signs reveal mild tachycardia of 111 BPM, otherwise unremarkable. On physical exam, the right hand and forearm are notable for swelling and erythema with streaking erythema up the right forearm. There are 3 puncture wounds of the dorsal proximal aspect of R hand that have scabbed over, without drainage. There is one puncture wound over the ventral, radial aspect of the proximal wrist with scant serous drainage. Radial pulses are present and intact 2+, ROM is intact but does elicit pain with wrist flexion and when making a full fist. Compartments are soft, compartment syndrome less likely. Labs reveal MOISES with creatinine at 1.65, elevated CRP of 15.09 and ESR of 92 suggesting infection. Lactic acid WNL. Awaiting R hand XR result to evaluate for extent of infection R/O osteomyelitis, gas in soft tissue, or retained tooth. At this time infection is suspected. Ordered labs, IV antibiotics, pain control. Patient/family report this is a family dog and they have been told verbally the dog is up to date with rabies vaccine. Differential Diagnosis Differential Diagnoses: The differential diagnosis associated with the presentation includes 1502 Cellulitis Osteomyelitis Gas gangrene Compartment syndrome retained foreign body MOISES tenosynovitis Admission/Observation Consideration of admission/observation: Escalation of care including admission/observation considered Cellulitis with no improvement with oral antibiotics, will need admission for IV antibiotics Consult Healthcare Provider Management of the patient was discussed with: Hospitalist and [facility]-no additional recommendations (Sarah LACY) Hospitalist-Tavo Farr accepted admit Lab Data MDM Lab Attestation statement: I reviewed the patient's lab results. 08/16/24 12:02 08/16/24 12:02 Labs: Lab Results 08/16/24 08/16/24 Range/Units 12:02 15:19 WBC 10.6 (4.8-10.8) X10*3/uL RBC 3.28 L (4.60-5.80) X10*6/uL Hgb 10.5 L (14.0-18.0) g/dl Hct 30.5 L (42.0-52.0) % MCV 93.0 (80.0-98.0) fL MCH 32.0 (27.0-33.0) pg MCHC 34.4 (31.0-36.0) g/dl RDW 13.5 (11.0-16.0) % Plt Count 205 (160-400) X10*3/uL MPV 9.2 L (9.4-12.4) fL Immature Gran % (Auto) 0.6 H (0.0-0.4) % Neut % (Auto) 77.2 H (45-73) % Lymph % (Auto) 10.5 L (20-40) % [place] % (Auto) 10.5 (2-11) % Eos % (Auto) 0.9 (0-4) % Baso % (Auto) 0.3 (0-2) % Lymph # (Auto) 1.1 L (1.2-4.9) X10*3/uL [place] # (Auto) 1.1 (0.1-1.2) X10*3/uL Eos # (Auto) 0.1 (0.0-0.4) X10*3/uL Baso # (Auto) 0.0 (0.0-0.2) X10*3/uL Abs Immat Gran (auto) 0.06 H (0.00-0.03) X10*3/uL Absolute Neuts (auto) 8.2 (2.0-8.3) x10*3/uL Absolute Nucleated RBC 0.000 (0.0-0.012) X10*3/uL Nucleated RBC % (auto) 0.0 (0.0-0.2) /100WBC ESR 92 H (0-15) MM/HR Sodium 133 L (135-145) mmol/L Potassium 5.1 (3.3-5.1) mmol/L Chloride 104 (96-108) mmol/L Carbon Dioxide 23 (22-29) mmol/L Anion Gap 11 L (12-20) BUN 43 H (9-16) mg/dL Creatinine 1.65 H (0.5-1.4) mg/dL Estim Creat Clear Calc 31.0 Estimated GFR 41 Random Glucose 192 H (60-115) mg/dL Lactic Acid 0.9 (0.5-2.0) mmol/L Calcium 9.3 (8.4-10.2) mg/dL Magnesium 1.8 (1.6-2.6) mg/dL Total Bilirubin 0.3 (0.0-1.0) mg/dL Direct Bilirubin 0.1 (0.0-0.5) mg/dL AST 27 (5-37) U/L ALT 14 (0-40) U/L Alkaline Phosphatase 89 (39-117) U/L C-Reactive Protein 15.09 H (< or = 0.50) mg/dL Total Protein 7.6 (6.5-8.0) g/dL Albumin 3.6 (3.5-5.0) g/dL Independent Interpretation I performed an independent interpretation of an: Plain X-Ray Interpretation: I independently reviewed the x-ray and agree with the rad report Radiology Impression Discussion of test interpretation with radiology: I have reviewed the radiologist's reading. Radiologist Impression: [address] [address] XRay Report Signed Patient: Jey Moy MR#: [id number] : 1950 Acct:[id number] Age/Sex: 74 / M ADM Date: 08/16/24 Loc: HO.ED Attending Dr: Ordering Physician: Sara Coffman NP Date of Service: 08/16/24 Procedure(s): XR hand RT 2V Accession Number(s): [id number] cc: Mati Boyd MD; Sara Coffman NP~ EXAMINATION: XR HAND, RIGHT CLINICAL INFORMATION: dog bite, cellulitis COMPARISON: None available. TECHNIQUE: PA, lateral, and oblique views of the right hand. FINDINGS: There is normal bone mineralization. There is no fracture, dislocation, or suspicious bone lesion. There is normal alignment. 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 Moderate degenerative arthrosis at the first CMC joint. There is blunting of the ulnar styloid, nonspecific. There is dorsal soft tissue swelling present. No subcutaneous emphysema. XR/XR hand RT 2V IMPRESSION: 1. No acute bony abnormalities. 2. Dorsal soft tissue swelling. Independent Historian Clinical information obtained from an independent historian. History obtained from or confirmed by: Spouse Critical Care Time Critical Care Time Critical Care Time: Yes Total Critical Care Time: 60 Attestation: direct patient care, patient reassessment, coordination of patient care, interpretation of data, review of patient's medical records, medical consultation and documentation of patient care. Discharge Plan Discharge Clinical Impression: Cellulitis, Dog bite, MOISES (acute kidney injury) Patient Disposition: Admitted As Inpatient Print Language: Surinamese
[2024-08-16 12:11] LABS: MANUAL DIFF FLAG NO
[2024-08-16 12:13] LABS: Basophils Percent Auto 0.3 % (0-2); Eosinophils Absolute Auto 0.1 X10*3/uL (0.0-0.4); Eosinophils Percent Auto 0.9 % (0-4); Hematocrit 30.5 % (42.0-52.0); Hemoglobin 10.5 g/dl (14.0-18.0); Imm Gran Abs Auto 0.06 X10*3/uL (0.00-0.03); Imm Gran Pct Auto 0.6 % (0.0-0.4); Lymphocytes Absolute Auto 1.1 X10*3/uL (1.2-4.9); Lymphocytes Percent Auto 10.5 % (20-40); Mean Corpuscular HGB Conc 34.4 g/dl (31.0-36.0); Mean Platelet Volume 9.2 fL (9.4-12.4); Monocytes Absolute Auto 1.1 X10*3/uL (0.1-1.2); Monocytes Percent Auto 10.5 % (2-11); Neutrophils Absolute Auto 8.2 x10*3/uL (2.0-8.3); Neutrophils Percent Auto 77.2 % (45-73); Platelet Count 205 X10*3/uL (160-400); Red Blood Count 3.28 X10*6/uL (4.60-5.80); Red Cell Distribution Width 13.5 % (11.0-16.0); White Blood Count 10.6 X10*3/uL (4.8-10.8)
[2024-08-16 12:28] LABS: Alanine Aminotransferase 14 U/L (0-40); Albumin Level 3.6 g/dL (3.5-5.0); Alkaline Phosphatase 89 U/L (39-117); Anion Gap 11 (12-20); Aspartate Amino Transferase 27 U/L (5-37); Bilirubin Direct 0.1 mg/dL (0.0-0.5); Bilirubin Total 0.3 mg/dL (0.0-1.0); Blood Urea Nitrogen 43 mg/dL (9-16); C Reactive Protein 15.09 mg/dL (< or = 0.50); Calcium 9.3 mg/dL (8.4-10.2); Carbon Dioxide 23 mmol/L (22-29); Chloride 104 mmol/L (96-108); Estimated Glomerular Filt Rate 41; Glucose Random 192 mg/dL (60-115); Potassium 5.1 mmol/L (3.3-5.1); Sodium 133 mmol/L (135-145); Total Protein 7.6 g/dL (6.5-8.0)
[2024-08-16 12:56] LABS: Erythrocyte Sedimentation Rate 92 MM/HR (0-15)
--- OUTSIDE RECORDS SUMMARY | 2024-08-16 15:11 | XMS_ITS | Patient Health Record ---
Author Organization 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 Name Role Phone Celeste Mishra Primary Care Provider Jason Zavaleta Unavailable [phone] Reason For Referral No Information Medications Medication [...] Problem Status W/U Status Risk Notes Problem [id number] Encounter for screening for malignant neoplasm of colon (Z12.11) Active confirmed Problem [id number] Diarrhea, unspecified type (R19.7) Active confirmed Plan Of Treatment Future Test Test Name Order Date COLONOSCOPY 12/25/2019 Insurance Providers Payer Name Payer Address Payer Phone Subscriber Number Group Number Insured Name Patient Relationship to Insured Coverage Start Date Coverage End Date [facility] [employer] [address] [place] [id number] [place] KHAN Self - patient is the insured Medical (General) History Medical History History ICD Code IDDM Hypertension Legally Blind - Vision Impaired Denies [place],CVA,Lung disease,renal disease Negative colonoscopy in appr ox. 2009 at [place] and told to do one in 10 years Told of negative stool test at home 2019 --? Cologuard GERD Surgical History Surgery Date(Month/Year)
[2024-08-16] MEDS: 0.9 % Sodium Chloride 1,000 ML 999 ML IV (15:29)
[2024-08-16] MEDS: Morphine Sulfate 4 MG/ML CARTRIDGE IVPUSH ×3 (15:29→23:01)
[2024-08-16] MEDS: Piperacillin Sodium/Tazobactam 3.375 GM in 0.9 % Sodium Chloride 50 ML IV (15:30)
[2024-08-16 15:31] VITALS: BP 146/98; PULSE 120; RESP 18; O2SAT 98
[2024-08-16 15:37] LABS: Lactic Acid 0.9 mmol/L (0.5-2.0)
[2024-08-16] MEDS: vancomycin HCL 1,500 MG in 0.9 % Sodium Chloride 500 ML 333.33 MG IV (15:44)
[2024-08-16 16:36] LABS: Magnesium 1.8 mg/dL (1.6-2.6)
[2024-08-16 19:19] VITALS: BP 157/95; PULSE 101; RESP 16; TEMP 36.5; O2SAT 99
--- NOTE | 2024-08-16 19:23 | PHA.MEDREC ---
Addendum entered by Denzel Edgar [facility] 08/16/24 19:35: Med rec reviewed Original Note: Pharmacy Consult ? Medication Reconciliation Pharmacy has completed the medication reconciliation. Spoke to patent to confirm med list. patient states he doesn't remember the names of all his medications, however [facility]
--- NOTE | 2024-08-16 19:56 | P.HPHOSP_ITS ---
History of Present Illness Date of Service: 08/16/24 Attending physician on admission: Cleo Man Chief Complaint: Dog bite Pt is a 74-year-old male with a PMH significant for?HTN, HLD, insulin-dependent type 2 diabetes, peripheral neuropathy, GERD, and BPH who presents to the ED with?worsening right hand cellulitis from a dog bite. Pt reports 3 days ago was pushing his son's dog off his lap in order to but a harness on it when it ?snapped? had him and bit him on the right forearm and wrist. Pt reports it was not ?much of a bite? but still punctured the skin. Dog is up-to-date on vaccines. The following day pt went to a walk-in clinic and was given a tetanus shot and started on Augmentin which pt was able to fill that night. Reports compliance with antibiotics, but swelling, pain, and erythema on wrist and hand increased. Reports went to the ID earlier today to fill prescriptions and was encouraged to come to the ED for further evaluation and IV antibiotics. Has had some pain with movement. Denies fever or chills. Has not noticed any significant drainage from the area. In the ED pt was tachycardic up to 120 and mildly hypertensive up to 157/95. Labs were significant for creatinine 1.65, increased from 1.16 on 06/28/2024, and CRP 15.9. No leukocytosis. Stable normocytic anemia of 10.5/30.5. Chronic hyponatremia of 133, around baseline. Lactic acid WNL. Hepatic function WNL. X-ray of right hand negative for acute bony abnormalities though showing dorsal soft tissue swelling. Orthopedics was consult who suggested admission to the hospital for IV antibiotics but currently no indication for surgical procedure. Pt was treated in the ED with IVF, morphine, vancomycin, and Zosyn. Pt is admitted to the hospital for treatment and further evaluation of left hand and wrist cellulitis in the setting of dog bite that failed outpatient therapy. Review of Systems 2 Review of Systems: Negative except for that which is stated in the HPI. [facility] Medical History Peripheral neuropathy Diabetes Hyperlipidemia HTN (hypertension) Surgical History History of colonoscopy Social History Household Members: Family Housing: House Patient Tobacco Use Status: Former Tobacco user Cigarettes Per Day: 1 Smoked in Last 30 Days: No Use of substances other than those prescribed or required for medical reasons: No Advance Directives: Yes Advance Directives on File: Yes Advance Directives Date on File: 06/21/24 Do you have a plan to hurt others: No Plan service: No Meds Allergies Allergy/AdvReac Type Severity Reaction Status Date / Time No Known Allergies Allergy Verified 08/16/24 11:37 Active Medications: Current Medications Piperacillin Sod/Tazobactam (Sod 2.25 gm/ Sodium Chloride) 50 mls @ 100 mls/hr IV Q6H TAMIE Vancomycin HCl 750 mg/ Sodium (Chloride) 265 mls @ 265 mls/hr IV Q24H TAMIE Morphine Sulfate (Morphine Sulfate 4 Mg/Ml Cartridge) 4 mg IVPUSH Q4H PRN; Protocol PRN Reason: Pain, Severe (Pain Scale 7-10) Last Admin: 08/16/24 18:47 Dose: 4 mg Pharmacy Consult (Consult Rx Vancomycin Dosing) 1 each MISCELLANE DAILY PRN PRN Reason: Consult order Home Medications ?Medication ?Instructions ?Recorded ?Confirmed ?Last Taken ?Type ferrous sulfate 325 mg (65 mg 325 mg PO DAILY 01/22/20 08/16/24 08/14/24 History iron) tablet primidone 50 mg tablet 50 mg PO BEDTIME 01/22/20 08/16/24 08/15/24 History amlodipine 5 mg tablet 5 mg PO DAILY 06/17/24 08/16/24 08/14/24 History atorvastatin 80 mg tablet 80 mg PO DAILY 06/17/24 08/16/24 08/14/24 History empagliflozin 25 mg tablet 25 mg PO DAILY 06/17/24 08/16/24 08/14/24 History (Jardiance) ezetimibe 10 mg tablet 10 mg PO DAILY 06/17/24 08/16/24 08/14/24 History fluticasone propionate 50 50 mcg inhalation Q10D 06/17/24 08/16/24 Unknown History mcg/actuation blister powder for inhalation gabapentin 300 mg capsule 300 mg PO TID 06/17/24 08/16/24 08/14/24 History glucose 4 gram chewable tablet 16 g PO NEEDED PRN Low Blood 06/17/24 08/16/24 06/15/24 History Sugar insulin glargine-yfgn 100 unit/mL 8 unit subcut BEDTIME 06/17/24 08/16/24 08/14/24 History (3 mL) subcutaneous pen omeprazole 20 mg capsule,delayed 20 mg PO DAILY@0630 06/17/24 08/16/24 08/14/24 History release sitagliptin 100 mg tablet 100 mg PO DAILY 07/12/24 08/16/24 08/16/24 History cholecalciferol (vitamin D3) 25 25 mcg PO DAILY 08/16/24 08/16/24 08/14/24 History mcg (1,000 unit) tablet (Vitamin D3) lisinopril 10 mg tablet 10 mg PO DAILY 08/16/24 08/16/24 08/14/24 History Physical Exam 2 Vital Signs and Narrative: Vital Signs: Last Vital Signs Temp 97.7 F 08/16/24 19:19 Pulse 101 H 08/16/24 19:19 Resp 16 08/16/24 19:19 BP 157/95 H 08/16/24 19:19 Pulse Ox 99 08/16/24 19:19 O2 Del Method Room Air 08/16/24 19:19 BMI result Body Mass Index 21.2 General: AOx3, no acute distress Resp: CTA bilaterally CVS: S1, S2, RRR GI: +BS, NT, no distention Skin: Warm, dry Neuro: Cranial nerves II-XII grossly intact bilaterally. Motor grossly intact bilaterally Extremities: Right hand with 4 puncture wounds dorsal aspect of wrist and forearm with surrounding warmth, redness, and erythema. Mildly tender to palpation, reduced ROM secondary to pain. No purulent drainage noted. No fluctuance or induration. As pictured below. Psych: Appropriate affect Results Labs 08/16/24 12:02 08/16/24 12:02 Labs: Laboratory Results - last 24 hr 08/16/24 08/16/24 12:02 15:19 MCV 93.0 MCH 32.0 MCHC 34.4 RDW 13.5 Plt Count 205 MPV 9.2 L Immature Gran % (Auto) 0.6 H Neut % (Auto) 77.2 H Lymph % (Auto) 10.5 L [place] % (Auto) 10.5 Eos % (Auto) 0.9 Baso % (Auto) 0.3 Lymph # (Auto) 1.1 L [place] # (Auto) 1.1 Eos # (Auto) 0.1 Baso # (Auto) 0.0 Abs Immat Gran (auto) 0.06 H Absolute Neuts (auto) 8.2 Absolute Nucleated RBC 0.000 Nucleated RBC % (auto) 0.0 ESR 92 H Anion Gap 11 L Estim Creat Clear Calc 31.0 Estimated GFR 41 Random Glucose 192 H Lactic Acid 0.9 Calcium 9.3 Magnesium 1.8 Total Bilirubin 0.3 Direct Bilirubin 0.1 AST 27 ALT 14 Alkaline Phosphatase 89 C-Reactive Protein 15.09 H Total Protein 7.6 Albumin 3.6 Imaging Radiologist's Impressions: Impressions Hand X-Ray 08/16/24 15:20 IMPRESSION: 1. No acute bony abnormalities. 2. Dorsal soft tissue swelling. Electronically signed by: Price Su MD 08/16/2024 03:38 PM EDT RP Assessment and Plan (1) MOISES (acute kidney injury): Status: Acute (2) Dog bite: Status: Acute (3) Cellulitis: Status: Acute Plan Pt is a 74-year-old male with a PMH significant for?HTN, HLD, insulin-dependent type 2 diabetes, peripheral neuropathy, GERD, and BPH who presents to the ED with?worsening right hand cellulitis from a dog bite. Pt is admitted to the hospital for treatment and further evaluation of left hand and wrist cellulitis in the setting of dog bite that failed outpatient therapy. Right hand, wrist, and forearm cellulitis Secondary to dog bite 3 days ago Dog reportedly up-to-date on vaccinations Initially prescribed Augmentin and given tetanus shot at walk-in clinic 2 days ago Symptoms have worsened despite p.o. abx No sepsis: Tachycardia, but no tachypnea, fever, or leukocytosis Will treat with vancomycin and Zosyn, started 08/16/2024 Orthopedic consult though no indication at this time for surgical procedure Follow cultures MOISES Creatinine 1.65, increased from prior of 1.16 Likely secondary to hypovolemia from reduced p.o. intake Pt given IVF in the ED Will place on maintenance fluids Hold lisinopril Follow creatinine Hyponatremia, chronic Patient's sodium 133, at baseline HLD Continue statin, ezetimibe HTN Hold lisinopril due to MOISES Insulin-dependent type 2 diabetes Sliding-scale insulin, Lantus Continue Jardiance Anemia Stable, at baseline Continue iron supplementation GERD PPI BPH Continue Flomax Full Code Attending:?Dr. Man DVT Prophylaxis: Pneumatic compression due to possible surgical procedure Pt will require a hospitalization of at least two nights for treatment of right hand, wrist, and forearm cellulitis secondary to dog bite that has failed outpatient therapy and will require IV antibiotics and specialist consultation with Orthopedics. Quality Stroke Does the patient have a stroke diagnosis?: No VTE Prior VTE?: No VTE Risk Level:: Medical - moderate - high VTE Device Contraindication: N/A - Device Ordered VTE Drug Contraindication: Treatment Not Indicated
[2024-08-16 20:00] VITALS: BP 157/95; PULSE 101; RESP 16; TEMP 36.5; O2SAT 99
[2024-08-16] MEDS: Lactated Ringers 1,000 ML 100 ML IVCONT (20:47)
[2024-08-16 21:06] LABS: Glucose, Whole Blood 195 mg/dL (60-115)
[2024-08-16] MEDS: Insulin Lispro 100 UNIT/ML 3 ML VIAL SUBCUT (21:14)
[2024-08-16] MEDS: oxyCODONE HCl Immed Release 5 MG TABLET PO (21:14)
[2024-08-16] MEDS: Gabapentin 300 MG CAPSULE PO (21:14)
[2024-08-16] MEDS: Piperacillin Sodium/Tazobactam 2.25 GM in 0.9 % Sodium Chloride 50 ML IV (21:15)
[2024-08-16] MEDS: Tamsulosin HCL 0.4 MG CAPSULE PO (21:15)
[2024-08-16] MEDS: Magnesium Oxide 400 MG TABLET PO (21:15)
[2024-08-16] MEDS: Calcium Carbonate 750 MG TAB.CHEW PO (21:22)
[2024-08-16] MEDS: Primidone 50 MG TABLET PO (22:07)
[2024-08-16 22:32] VITALS: BP 157/84; PULSE 100; RESP 18; TEMP 36.3; O2SAT 96
[2024-08-16 22:50] VITALS: BMI 20.4
[2024-08-16] MEDS: 0.9 % Sodium Chloride Flush 3 ML SYRINGE IVFLUSH (23:02)
[2024-08-17 03:08] VITALS: BP 119/57; PULSE 87; RESP 16; TEMP 36; O2SAT 98
[2024-08-17] MEDS: Piperacillin Sodium/Tazobactam 2.25 GM in 0.9 % Sodium Chloride 50 ML IV ×4 (03:32→21:36)
[2024-08-17] MEDS: oxyCODONE HCl Immed Release 5 MG TABLET PO ×2 (03:44→11:28)
[2024-08-17 06:45] LABS: Anion Gap 12 (12-20); Blood Urea Nitrogen 27 mg/dL (9-16); Calcium 8.7 mg/dL (8.4-10.2); Carbon Dioxide 22 mmol/L (22-29); Chloride 102 mmol/L (96-108); Creatinine Clr Calc Pharmacy 41.4; Estimated Glomerular Filt Rate 59; Glucose Random 199 mg/dL (60-115); Potassium 4.6 mmol/L (3.3-5.1); Sodium 131 mmol/L (135-145)
[2024-08-17 07:12] VITALS: BP 119/71; PULSE 87; RESP 16; TEMP 36.1; O2SAT 98
[2024-08-17] MEDS: Omeprazole 20 MG CAPSULE.DR PO (07:14)
[2024-08-17] MEDS: Lactated Ringers 1,000 ML 100 ML IVCONT (07:48)
[2024-08-17 07:55] LABS: Glucose, Whole Blood 152 mg/dL (60-115)
[2024-08-17] MEDS: Insulin Lispro 100 UNIT/ML 3 ML VIAL SUBCUT ×2 (08:28→16:50)
[2024-08-17] MEDS: Morphine Sulfate 4 MG/ML CARTRIDGE IVPUSH ×2 (08:28→16:50)
[2024-08-17] MEDS: amLODIPine Besylate 5 MG TABLET PO (09:04)
[2024-08-17] MEDS: Atorvastatin Calcium 80 MG TABLET PO (09:04)
[2024-08-17] MEDS: Gabapentin 300 MG CAPSULE PO ×3 (09:04→21:10)
[2024-08-17] MEDS: Magnesium Oxide 400 MG TABLET PO ×2 (09:04→21:10)
[2024-08-17] MEDS: Ezetimibe 10 MG TABLET PO (09:04)
[2024-08-17] MEDS: Empagliflozin 25 MG TABLET PO (09:04)
[2024-08-17] MEDS: Ferrous Sulfate 324 MG TABLET.DR PO (09:04)
[2024-08-17] MEDS: Cholecalciferol (Vitamin D3) 25 MCG TABLET PO (09:04)
--- NOTE | 2024-08-17 10:15 | P.CONOP_ITS ---
History of Present Illness HPI Consult date: 08/17/24 Chief complaint: Dog Bite On Hand w/Cellulitis Narrative: Mr. Moy is a 74 yo male who presented to the ED yesterday for a dog bite to the right hand. He reports that his dog was sitting on his lap, he put his harness on to go for a walk and went to get the dog off of his lap and the dog bit him. This occurred about four days ago. He is vision impaired and his recommended that he go to the urgent care the following day because he developed some redness. The urgent care gave him Augmentin. unfortunately, he continued to develop worsening erythema and edema prompting him to go to the emergency department. While in the ED an x-ray was obtained and was negative for any acute fracture or dislocation. He was admitted to the medicine service for IV antibiotics with orthopedic consult. Review of Systems 2 Review of Systems: Yes all other systems are reviewed and are negative PMFSH Past Medical History Medical History Peripheral neuropathy Diabetes Hyperlipidemia HTN (hypertension) Surgical History Surgical History History of colonoscopy Social History Social History Household Members: Family Housing: House Do you presently have visiting nurse or other home services: No Patient Tobacco Use Status: Former Tobacco user Tobacco use type: Cigar Cigarettes Per Day: 1 Smoked in Last 30 Days: No Second Hand Smoke Exposure: No Use of substances other than those prescribed or required for medical reasons: No Currently Displaying Signs/Symptoms of Drug Intoxication Withdrawal: No Have you been hit, kicked, punched, or otherwise hurt by someone within the past year? If so, by whom?: No Do you feel safe in your current relationship?: Yes Is there a partner from a previous relationship who is making you feel unsafe now?: No Are you made to feel afraid or neglected: No Advance Directives: Yes Advance Directives on File: Yes Advance Directives Date on File: 06/21/24 Do you have a plan to hurt others: No Plan Recently lost weight without trying: No Eating poorly because of decreased appetite: No Nutrition Risks: No Nutritional Risk Poor oral hygiene: No service: No Meds Allergies Allergy/AdvReac Type Severity Reaction Status Date / Time No Known Allergies Allergy Verified 08/16/24 11:37 Active Medications: Current Medications Acetaminophen (Acetaminophen 325 Mg Tablet) 650 mg PO Q6H PRN PRN Reason: Pain, Mild 1-3,fever,headache Amlodipine Besylate (Amlodipine Besylate 5 Mg Tablet) 5 mg PO DAILY [facility]; Protocol Last Admin: 08/17/24 09:04 Dose: 5 mg Atorvastatin Calcium (Atorvastatin Calcium 80 Mg Tablet) 80 mg PO DAILY [facility] Last Admin: 08/17/24 09:04 Dose: 80 mg Calcium Carbonate (Calcium Carbonate 750 Mg Tab.Chew) 750 mg PO Q4H PRN PRN Reason: Heartburn Last Admin: 08/16/24 21:22 Dose: 750 mg Dextrose (Dextrose 50 % 25 Gm/50 Ml Syringe) 25 gm IVPUSH Q15M PRN; Protocol PRN Reason: per Hypoglycemia Standing Ord. Ezetimibe (Ezetimibe 10 Mg Tablet) 10 mg PO DAILY [facility] Last Admin: 08/17/24 09:04 Dose: 10 mg Empagliflozin (Empagliflozin 25 Mg Tablet) 25 mg PO DAILY [facility] Last Admin: 08/17/24 09:04 Dose: 25 mg Ferrous Sulfate (Ferrous Sulfate 324 Mg Tablet.Dr) 324 mg PO DAILY [facility] Last Admin: 08/17/24 09:04 Dose: 324 mg Fluticasone Propionate (Fluticasone Propionate Nasal 16 Gm [place]) 1 spray NOSTRIL-B Q10D PRN PRN Reason: PREVENT IRRITATION FROM SENSOR Gabapentin (Gabapentin 300 Mg Capsule) 300 mg PO TID [facility] Last Admin: 08/17/24 09:04 Dose: 300 mg Glucose (Glucose Gel 15 Gm Gel..Gram.) 15 gm PO Q15M PRN; Protocol PRN Reason: per Hypoglycemia Standing Ord. Piperacillin Sod/Tazobactam (Sod 2.25 gm/ Sodium Chloride) 50 mls @ 100 mls/hr IV Q6H [facility] Last Infusion: 08/17/24 09:51 Dose: Infused Vancomycin HCl 1,000 mg/ (Sodium Chloride) 270 mls @ 270 mls/hr IV Q24H [facility] Insulin Human Lispro (Insulin Lispro 100 Unit/Ml 3 Ml Vial) 0 unit SUBCUT QIDACHS [facility]; Protocol Last Admin: 08/17/24 08:28 Dose: 2 unit Magnesium Hydroxide (Milk Of Magnesia 30 Ml Oral.Susp) 30 ml PO DAILY PRN PRN Reason: Constipation Magnesium Oxide (Magnesium Oxide 400 Mg Tablet) 400 mg PO BID [facility] Last Admin: 08/17/24 09:04 Dose: 400 mg Melatonin (Melatonin 3 Mg Tablet) 6 mg PO BEDTIME PRN PRN Reason: Insomnia Morphine Sulfate (Morphine Sulfate 4 Mg/Ml Cartridge) 4 mg IVPUSH Q4H PRN; Protocol PRN Reason: Pain, Severe (Pain Scale 7-10) Last Admin: 08/17/24 08:28 Dose: 4 mg Omeprazole (Omeprazole 20 Mg Capsule.Dr) 20 mg PO DAILY@0630 [facility] Last Admin: 08/17/24 07:14 Dose: 20 mg Oxycodone HCl (Oxycodone Hcl Immed Release 5 Mg Tablet) 5 mg PO Q6H PRN PRN Reason: Breakthrough Pain Last Admin: 08/17/24 03:44 Dose: 5 mg Pharmacy Consult (Consult Rx Vancomycin Dosing) 1 each MISCELLANE DAILY PRN PRN Reason: Consult order Primidone (Primidone 50 Mg Tablet) 50 mg PO BEDTIME [facility] Last Admin: 08/16/24 22:07 Dose: 50 mg Sodium Chloride (0.9 % Sodium Chloride Flush 3 Ml Syringe) 3 ml IVFLUSH QSHIFT [facility] Last Admin: 08/17/24 07:48 Dose: Not Given Tamsulosin HCl (Tamsulosin Hcl 0.4 Mg Capsule) 0.4 mg PO BEDTIME [facility] Last Admin: 08/16/24 21:15 Dose: 0.4 mg Vitamin D (Cholecalciferol (Vitamin D3) 25 Mcg Tablet) 25 mcg PO DAILY [facility] Last Admin: 08/17/24 09:04 Dose: 25 mcg Home Medications ?Medication ?Instructions ?Recorded ?Confirmed ?Last Taken ?Type ferrous sulfate 325 mg (65 mg 325 mg PO DAILY 01/22/20 08/16/24 08/14/24 History iron) tablet primidone 50 mg tablet 50 mg PO BEDTIME 01/22/20 08/16/24 08/15/24 History amlodipine 5 mg tablet 5 mg PO DAILY 06/17/24 08/16/24 08/14/24 History atorvastatin 80 mg tablet 80 mg PO DAILY 06/17/24 08/16/24 08/14/24 History empagliflozin 25 mg tablet 25 mg PO DAILY 06/17/24 08/16/2425 History (Jardiance) ezetimibe 10 mg tablet 10 mg PO DAILY 06/17/24 08/16/24 08/14/24 History fluticasone propionate 50 50 mcg inhalation Q10D 06/17/24 08/16/24 Unknown History mcg/actuation blister powder for inhalation gabapentin 300 mg capsule 300 mg PO TID 06/17/24 08/16/24 08/14/24 History glucose 4 gram chewable tablet 16 g PO NEEDED PRN Low Blood 06/17/24 08/16/24 06/15/24 History Sugar insulin glargine-yfgn 100 unit/mL 8 unit subcut BEDTIME 06/17/24 08/16/24 08/14/24 History (3 mL) subcutaneous pen omeprazole 20 mg capsule,delayed 20 mg PO DAILY@0630 06/17/24 08/16/24 08/14/24 History release sitagliptin 100 mg tablet 100 mg PO DAILY 07/12/24 08/16/24 08/16/24 History cholecalciferol (vitamin D3) 25 25 mcg PO DAILY 08/16/24 08/16/24 08/14/24 History mcg (1,000 unit) tablet (Vitamin D3) lisinopril 10 mg tablet 10 mg PO DAILY 08/16/24 08/16/24 08/14/24 History Physical Exam 2 Vital Signs: Vital Signs: Last Vital Signs Temp 96.9 F 08/17/24 07:12 Pulse 87 08/17/24 07:12 Resp 16 08/17/24 07:12 BP 119/71 08/17/24 07:12 Pulse Ox 98 08/17/24 07:12 O2 Del Method Room Air 08/17/24 07:12 BMI result Body Mass Index 20.4 Const: General: cooperative, healthy appearing and no acute distress Resp: Effort & Inspection: normal respiratory effort and able to speak in complete sentences Extrem: Other: Right hand small puncture wounds on the dorsal aspect of the hand, there is an additional puncture wound on the radial aspect of the wrist. There is a small amount of purulent discharge from the radial wrist wound. No surrounding area of fluctuance. No area of abscess formation. No evidence of flexor or extensor tenosynovitis. Able to make a closed fist and extend all digits. Sensation intact. Capillary refill is brisk. Results Labs 05/16/25 12:02 08/17/24 05:47 Labs: Abnormal lab results 08/16/24 08/16/24 08/17/24 Range/Units 12:02 20:57 05:47 RBC 3.28 L (4.60-5.80) X10*6/uL Hgb 10.5 L (14.0-18.0) g/dl Hct 30.5 L (42.0-52.0) % MPV 9.2 L (9.4-12.4) fL Immature Gran % (Auto) 0.6 H (0.0-0.4) % Neut % (Auto) 77.2 H (45-73) % Lymph % (Auto) 10.5 L (20-40) % Lymph # (Auto) 1.1 L (1.2-4.9) X10*3/uL Abs Immat Gran (auto) 0.06 H (0.00-0.03) X10*3/uL ESR 92 H (0-15) MM/HR Sodium 133 L 131 L (135-145) mmol/L Anion Gap 11 L (12-20) BUN 43 H 27 H (9-16) mg/dL Creatinine 1.65 H (0.5-1.4) mg/dL POC Glucose 195 H (60-115) mg/dL Random Glucose 192 H 199 H (60-115) mg/dL C-Reactive Protein 15.09 H (< or = 0.50) mg/dL 08/17/24 Range/Units 07:43 RBC (4.60-5.80) X10*6/uL Hgb (14.0-18.0) g/dl Hct (42.0-52.0) % MPV (9.4-12.4) fL Immature Gran % (Auto) (0.0-0.4) % Neut % (Auto) (45-73) % Lymph % (Auto) (20-40) % Lymph # (Auto) (1.2-4.9) X10*3/uL Abs Immat Gran (auto) (0.00-0.03) X10*3/uL ESR (0-15) MM/HR Sodium (135-145) mmol/L Anion Gap (12-20) BUN (9-16) mg/dL Creatinine (0.5-1.4) mg/dL POC Glucose 152 H (60-115) mg/dL Random Glucose (60-115) mg/dL C-Reactive Protein (< or = 0.50) mg/dL H & H 08/16/24 Range/Units 12:02 Hgb 10.5 L (14.0-18.0) g/dl Hct 30.5 L (42.0-52.0) % All other labs normal. Assessment and Plan (1) Cellulitis: Status: Acute (2) Dog bite of right hand with infection: Qualifiers: Encounter type: initial encounter Qualified Code(s): S61.451A - Open bite of right hand, initial encounter; L08.9 - Local infection of the skin and subcutaneous tissue, unspecified; W54.0XXA - Bitten by dog, initial encounter Status: Acute Plan Continue IV abx then transition to PO on discharge Encourage gentle ROM of the wrist and hand No evidence of flexor or extensor tenosynovitis at this time No acute orthopedic intervention needed at this time Procedures Date of Service Date of Service: 08/17/24
[2024-08-17 11:22] LABS: Glucose, Whole Blood 117 mg/dL (60-115)
--- NOTE | 2024-08-17 13:22 | MHC.CM.PN ---
Addendum entered by Maday Orozco 08/18/24 11:55: PT TYPICALLY FILLS HIS RX AT [facility] IN [place], HOWEVER THEY ARE CLOSED ON THE WEEKEND. RX WERE SENT TO [facility] IN [place], CALLED AND CONFIRMED COST ($0.69 & $3.57), PT AWARE WILL TRANSPORT Addendum entered by Maday Orozco 08/18/24 11:33: PT CLEARED TO DC HOME TODAY WITH NO SERVICES VIA PRIVATE TRANSPORT Original Note: PT REPORTS HE LIVES WITH HIS AND SON AND IS INDEPENDENT WITH CARE PT IS LEGALLY BLIND AND USES A [employer] PRN, HE HAS NO SERVICES HCP ON FILE PCP: [facility] DELIVERED DCP: HOME NO SERVICES VS WITH [facility] VIA PRIVATE TRANSPORT
--- NOTE | 2024-08-17 13:33 | HO.PM.IMPN ---
Subjective Subjective Date of Service: 08/17/24 Interval History: seen and evaluated feels better swelling still significant but no drainage good range of motion no other events Review of Systems Review of Systems: Yes all other systems are reviewed and are negative Physical Exam Vital Signs: Vital Signs: Last Vital Signs Temp 96.9 F 08/17/24 07:12 Pulse 87 08/17/24 07:12 Resp 16 08/17/24 07:12 BP 119/71 08/17/24 07:12 Pulse Ox 98 08/17/24 07:12 O2 Del Method Room Air 08/17/24 07:12 BMI result Body Mass Index 20.4 Const: Other: Constitutional : Awake, interactive, not in distress Neck : Normal inspection, Supple Cardiovascular : RRR, no JVP, no lower extremity edema Respiratory : good bilateral air entry, no crackles, wheezes or rhonchi Gastrointestinal: soft, lax, Normal bowel sounds, Non tender Skin : Warm, Dry, swelling and erythema in Right forarm and hand, good range of motion, no drainage Neurological : Alert & oriented x3, No focal deficit Objective Data Active Medications Acetaminophen (Acetaminophen 325 Mg Tablet) 650 mg PO Q6H PRN PRN Reason: Pain, Mild 1-3,fever,headache Amlodipine Besylate (Amlodipine Besylate 5 Mg Tablet) 5 mg PO DAILY [facility]; Protocol Last Admin: 08/17/24 09:04 Dose: 5 mg Documented By: JORGE Atorvastatin Calcium (Atorvastatin Calcium 80 Mg Tablet) 80 mg PO DAILY [facility] Last Admin: 08/17/24 09:04 Dose: 80 mg Documented By: JORGE Calcium Carbonate (Calcium Carbonate 750 Mg Tab.Chew) 750 mg PO Q4H PRN PRN Reason: Heartburn Last Admin: 08/16/24 21:22 Dose: 750 mg Documented By: YANDEL Dextrose (Dextrose 50 % 25 Gm/50 Ml Syringe) 25 gm IVPUSH Q15M PRN; Protocol PRN Reason: per Hypoglycemia Standing Ord. Ezetimibe (Ezetimibe 10 Mg Tablet) 10 mg PO DAILY [facility] Last Admin: 08/17/24 09:04 Dose: 10 mg Documented By: JORGE Empagliflozin (Empagliflozin 25 Mg Tablet) 25 mg PO DAILY [facility] Last Admin: 08/17/24 09:04 Dose: 25 mg Documented By: JORGE Ferrous Sulfate (Ferrous Sulfate 324 Mg Tablet.) 324 mg PO DAILY [facility] Last Admin: 08/17/24 09:04 Dose: 324 mg Documented By: JORGE Fluticasone Propionate (Fluticasone Propionate Nasal 16 Gm [place]) 1 spray NOSTRIL-B Q10D PRN PRN Reason: PREVENT IRRITATION FROM SENSOR Gabapentin (Gabapentin 300 Mg Capsule) 300 mg PO TID [facility] Last Admin: 08/17/24 09:04 Dose: 300 mg Documented By: JORGE Glucose (Glucose Gel 15 Gm Gel..Gram.) 15 gm PO Q15M PRN; Protocol PRN Reason: per Hypoglycemia Standing Ord. Piperacillin Sod/Tazobactam (Sod 2.25 gm/ Sodium Chloride) 50 mls @ 100 mls/hr IV Q6H [facility] Last Infusion: 08/17/24 09:51 Dose: Infused Documented By: JOLANTA Vancomycin HCl 1,000 mg/ (Sodium Chloride) 270 mls @ 270 mls/hr IV Q24H [facility] Insulin Human Lispro (Insulin Lispro 100 Unit/Ml 3 Ml Vial) 0 unit SUBCUT QIDACHS [facility]; Protocol Last Admin: 08/17/24 12:14 Dose: Not Given Documented By: JOLANTA Non-Admin Reason: No Insulin Coverage Magnesium Hydroxide (Milk Of Magnesia 30 Ml Oral.Susp) 30 ml PO DAILY PRN PRN Reason: Constipation Magnesium Oxide (Magnesium Oxide 400 Mg Tablet) 400 mg PO BID [facility] Last Admin: 08/17/24 09:04 Dose: 400 mg Documented By: JORGE Melatonin (Melatonin 3 Mg Tablet) 6 mg PO BEDTIME PRN PRN Reason: Insomnia Morphine Sulfate (Morphine Sulfate 4 Mg/Ml Cartridge) 4 mg IVPUSH Q4H PRN; Protocol PRN Reason: Pain, Severe (Pain Scale 7-10) Last Admin: 08/17/24 08:28 Dose: 4 mg Documented By: JOLANTA Omeprazole (Omeprazole 20 Mg Capsule.) 20 mg PO DAILY@0630 [facility] Last Admin: 08/17/24 07:14 Dose: 20 mg Documented By: SEA Oxycodone HCl (Oxycodone Hcl Immed Release 5 Mg Tablet) 5 mg PO Q6H PRN PRN Reason: Breakthrough Pain Last Admin: 08/17/24 11:28 Dose: 5 mg Documented By: JOLANTA Pharmacy Consult (Consult Rx Vancomycin Dosing) 1 each MISCELLANE DAILY PRN PRN Reason: Consult order Primidone (Primidone 50 Mg Tablet) 50 mg PO BEDTIME [facility] Last Admin: 08/16/24 22:07 Dose: 50 mg Documented By: YANDEL Sodium Chloride (0.9 % Sodium Chloride Flush 3 Ml Syringe) 3 ml IVFLUSH QSHIFT [facility] Last Admin: 08/17/24 07:48 Dose: Not Given Documented By: JOLANTA Non-Admin Reason: IV Running Tamsulosin HCl (Tamsulosin Hcl 0.4 Mg Capsule) 0.4 mg PO BEDTIME [facility] Last Admin: 08/16/24 21:15 Dose: 0.4 mg Documented By: YANDEL Vitamin D (Cholecalciferol (Vitamin D3) 25 Mcg Tablet) 25 mcg PO DAILY [facility] Last Admin: 08/17/24 09:04 Dose: 25 mcg Documented By: MARGIENM Labs 08/16/24 12:02 08/17/24 05:47 Labs: Laboratory Results - last 24 hr 08/16/24 08/16/24 08/16/24 12:02 15:19 20:57 Hold Purple Top Anion Gap Estim Creat Clear Calc Estimated GFR POC Glucose 195 H Random Glucose Lactic Acid 0.9 Calcium Magnesium 1.8 08/17/24 08/17/24 08/17/24 05:47 07:43 11:16 Hold Purple Top SEE NOTE Anion Gap 12 Estim Creat Clear Calc 41.4 Estimated GFR 59 POC Glucose 152 H 117 H Random Glucose 199 H Lactic Acid Calcium 8.7 D Magnesium Assessment and Plan (1) MOISES (acute kidney injury): Status: Acute (2) Dog bite: Status: Acute (3) Cellulitis: Status: Acute Plan Pt is a 74-year-old male with a PMH significant for?HTN, HLD, insulin-dependent type 2 diabetes, peripheral neuropathy, GERD, and BPH who presents to the ED with?worsening right hand cellulitis from a dog bite. Pt is admitted to the hospital for treatment and further evaluation of left hand and wrist cellulitis in the setting of dog bite that failed outpatient therapy. Right hand, wrist, and forearm cellulitis Secondary to dog bite Dog reportedly up-to-date on vaccinations prescribed Augmentin and given tetanus shot at walk-in clinic 2 days ago Contnue vancomycin and Zosyn, started 08/16/2024 Orthopedic consult , no indication for surgical procedure Follow cultures MOISES resilved with maintenance fluids Hold lisinopril Follow creatinine Hyponatremia, chronic Patient's sodium 131, at baseline HLD Continue statin, ezetimibe HTN Hold lisinopril due to MOISES Insulin-dependent type 2 diabetes Sliding-scale insulin, Lantus Continue Jardiance Anemia Stable, at baseline Continue iron supplementation GERD PPI BPH Continue Flomax Full Code DVT Prophylaxis: Lovenox Pt will require a hospitalization oovernight for treatment of right hand, wrist, and forearm cellulitis secondary to dog bite that has failed outpatient therapy and will require IV antibiotics and specialist consultation with Orthopedics. Quality Stroke Does the patient have a stroke diagnosis?: No VTE Prior VTE?: No VTE Risk Level:: Medical - moderate - high VTE Device Contraindication: N/A - Device Ordered VTE Drug Contraindication: Treatment Not Indicated
[2024-08-17 14:50] VITALS: BP 132/82; PULSE 100; RESP 18; TEMP 36.3; O2SAT 99
[2024-08-17] MEDS: Enoxaparin Sodium 40 MG/0.4 ML SYRINGE SUBCUT (15:36)
[2024-08-17] MEDS: Calcium Carbonate 750 MG TAB.CHEW PO ×2 (15:54→21:35)
[2024-08-17] MEDS: 0.9 % Sodium Chloride Flush 3 ML SYRINGE IVFLUSH ×2 (15:55→21:36)
[2024-08-17 16:13] LABS: Glucose, Whole Blood 224 mg/dL (60-115)
[2024-08-17] MEDS: vancomycin HCL 1,000 MG in 0.9 % Sodium Chloride 250 ML 270 MG IV (16:22)
[2024-08-17 20:00] VITALS: BP 128/80; PULSE 90; RESP 18; TEMP 36.3; O2SAT 98
[2024-08-17 20:51] LABS: Glucose, Whole Blood 130 mg/dL (60-115)
[2024-08-17] MEDS: Primidone 50 MG TABLET PO (21:10)
[2024-08-17] MEDS: Tamsulosin HCL 0.4 MG CAPSULE PO (21:10)
[2024-08-18] MEDS: Piperacillin Sodium/Tazobactam 2.25 GM in 0.9 % Sodium Chloride 50 ML IV ×2 (03:17→09:50)
[2024-08-18] MEDS: oxyCODONE HCl Immed Release 5 MG TABLET PO ×2 (03:23→09:49)
[2024-08-18 03:29] VITALS: BP 146/70; PULSE 90; RESP 18; TEMP 36.6; O2SAT 98
[2024-08-18 04:23] VITALS: RESP 18
[2024-08-18] MEDS: Omeprazole 20 MG CAPSULE.DR PO (05:38)
[2024-08-18 06:04] LABS: MANUAL DIFF FLAG NO
[2024-08-18 06:15] LABS: Basophils Absolute Auto 0.1 X10*3/uL (0.0-0.2); Basophils Percent Auto 0.7 % (0-2); Eosinophils Absolute Auto 0.3 X10*3/uL (0.0-0.4); Eosinophils Percent Auto 4.4 % (0-4); Hematocrit 27.6 % (42.0-52.0); Hemoglobin 9.3 g/dl (14.0-18.0); Imm Gran Abs Auto 0.03 X10*3/uL (0.00-0.03); Imm Gran Pct Auto 0.4 % (0.0-0.4); Lymphocytes Absolute Auto 1.2 X10*3/uL (1.2-4.9); Lymphocytes Percent Auto 17.8 % (20-40); Mean Corpuscular HGB Conc 33.7 g/dl (31.0-36.0); Mean Corpuscular Hemoglobin 31.2 pg (27.0-33.0); Mean Corpuscular Volume 92.6 fL (80.0-98.0); Mean Platelet Volume 9.3 fL (9.4-12.4); Monocytes Percent Auto 14.4 % (2-11); Neutrophils Absolute Auto 4.2 x10*3/uL (2.0-8.3); Neutrophils Percent Auto 62.3 % (45-73); Platelet Count 212 X10*3/uL (160-400); Red Blood Count 2.98 X10*6/uL (4.60-5.80); Red Cell Distribution Width 13.1 % (11.0-16.0); White Blood Count 6.8 X10*3/uL (4.8-10.8)
[2024-08-18 06:30] LABS: Anion Gap 13 (12-20); Blood Urea Nitrogen 22 mg/dL (9-16); Calcium 8.9 mg/dL (8.4-10.2); Carbon Dioxide 24 mmol/L (22-29); Chloride 99 mmol/L (96-108); Creatinine Clr Calc Pharmacy 46.5; Estimated Glomerular Filt Rate > 60; Glucose Random 131 mg/dL (60-115); Potassium 4.6 mmol/L (3.3-5.1); Sodium 131 mmol/L (135-145)
[2024-08-18 07:17] VITALS: BP 162/78; PULSE 78; RESP 16; TEMP 36.2; O2SAT 96
[2024-08-18 07:36] LABS: Glucose, Whole Blood 127 mg/dL (60-115)
[2024-08-18] MEDS: Gabapentin 300 MG CAPSULE PO (09:49)
[2024-08-18] MEDS: Ferrous Sulfate 324 MG TABLET.DR PO (09:49)
[2024-08-18] MEDS: Empagliflozin 25 MG TABLET PO (09:49)
[2024-08-18] MEDS: Cholecalciferol (Vitamin D3) 25 MCG TABLET PO (09:49)
[2024-08-18] MEDS: Atorvastatin Calcium 80 MG TABLET PO (09:49)
[2024-08-18] MEDS: Magnesium Oxide 400 MG TABLET PO (09:49)
[2024-08-18] MEDS: amLODIPine Besylate 5 MG TABLET PO (09:49)
[2024-08-18] MEDS: Ezetimibe 10 MG TABLET PO (09:49)
[2024-08-18] MEDS: 0.9 % Sodium Chloride Flush 3 ML SYRINGE IVFLUSH (09:50)
--- NOTE | 2024-08-18 11:04 | P.DS_ITS ---
DS: Providers Provider Date of Service: 08/18/24 Date of admission: 08/16/24 16:13 Date of discharge: 08/18/24 Primary care physician: Mati Boyd MD Consults: 08/16/24 20:25 Consult to Orthopedics Routine Consulting Provider: [facility] Reason for consultation: Right hand/wrist cellulitis from dog bite DS: Diagnosis Discharge Diagnosis (1) MOISES (acute kidney injury): Status: Acute (2) Dog bite: Status: Acute (3) Cellulitis: Status: Acute DS: Summary Hospital Course Hospital Course: Admission note HPI Pt is a 74-year-old male with a PMH significant for?HTN, HLD, insulin-dependent type 2 diabetes, peripheral neuropathy, GERD, and BPH who presents to the ED with?worsening right hand cellulitis from a dog bite. Pt reports 3 days ago was pushing his son's dog off his lap in order to but a harness on it when it ?snapped? had him and bit him on the right forearm and wrist. Pt reports it was not ?much of a bite? but still punctured the skin. Dog is up-to-date on vaccines. The following day pt went to a walk-in clinic and was given a tetanus shot and started on Augmentin which pt was able to fill that night. Reports compliance with antibiotics, but swelling, pain, and erythema on wrist and hand increased. Reports went to the [place] earlier today to fill prescriptions and was encouraged to come to the ED for further evaluation and IV antibiotics. Has had some pain with movement. Denies fever or chills. Has not noticed any significant drainage from the area. In the ED pt was tachycardic up to 120 and mildly hypertensive up to 157/95. Labs were significant for creatinine 1.65, increased from 1.16 on 06/28/2024, and CRP 15.9. No leukocytosis. Stable normocytic anemia of 10.5/30.5. Chronic hyponatremia of 133, around baseline. Lactic acid WNL. Hepatic function WNL. X-ray of right hand negative for acute bony abnormalities though showing dorsal soft tissue swelling. Orthopedics was consult who suggested admission to the hospital for IV antibiotics but currently no indication for surgical procedure. Pt was treated in the ED with IVF, morphine, vancomycin, and Zosyn. Pt is admitted to the hospital for treatment and further evaluation of left hand and wrist cellulitis in the setting of dog bite that failed outpatient therapy. Hospital course The patient was treated for the following: # Right hand, wrist, and forearm cellulitis Secondary to dog bite which did not respond to oral antibiotics. Images negative for any abscess. evaluated by orthopedic team who recommended no intervention and only antibiotics treatment. responded well to IV Zosyn and Vancomycin as swelling, erythema and pain improved. He will be discharged on Doxycycline on top of Augmentin which he has at home. # Acute kidney injury resolved with maintenance fluids and Holding lisinopril. Advised to increase fluid intake as it was likely prerenal with decrease oral intake. # Hyponatremia, chronic, Patient's sodium remained stable 131 which is at baseline. To be followed as outpatient with repeat BMP next week and follow with PCP. Discharge plan Stay well hydrated Take Doxycycline 100 mg two times a day for the next week Continue Amoxicillin\Clavulanate acid for the next week as well come back to ED for any worsening swelling , erythema or fever Time Attestation Discharge Coordination Time (in mins): 36 Quality: Safe Use of Opioids Does Pt have an Active Cancer Diagnosis on the Problem List?: No Quality: Stroke Does the patient have a stroke diagnosis?: No Physical Exam Vital Signs: Vital Signs: Last Vital Signs Temp 97.1 F 08/18/24 07:17 Pulse 78 08/18/24 07:17 Resp 16 08/18/24 07:17 BP 162/78 H 08/18/24 07:17 Pulse Ox 96 08/18/24 07:17 O2 Del Method Room Air 08/18/24 07:17 BMI result Body Mass Index 20.4 Const: Other: Constitutional : Awake, interactive, not in distress Neck : Normal inspection, Supple Cardiovascular : RRR, no JVP, no lower extremity edema Respiratory : good bilateral air entry, no crackles, wheezes or rhonchi Gastrointestinal: soft, lax, Normal bowel sounds, Non tender Skin : Warm, Dry, resolving swelling and erythema in Right forarm and hand, good range of motion, no drainage Neurological : Alert & oriented x3, No focal deficit DS: Data Data Completed and Pending Labs on day of discharge: Laboratory Results - last 24 hr 08/17/24 08/17/24 08/17/24 11:16 16:07 20:48 WBC RBC Hgb Hct MCV MCH MCHC RDW Plt Count MPV Immature Gran % (Auto) Neut % (Auto) Lymph % (Auto) Bureau % (Auto) Eos % (Auto) Baso % (Auto) Lymph # (Auto) Bureau # (Auto) Eos # (Auto) Baso # (Auto) Abs Immat Gran (auto) Absolute Neuts (auto) Absolute Nucleated RBC Nucleated RBC % (auto) Sodium Potassium Chloride Carbon Dioxide Anion Gap BUN Creatinine Estim Creat Clear Calc Estimated GFR POC Glucose 117 H 224 H 130 H Random Glucose Calcium 08/18/24 08/18/24 05:33 07:21 WBC 6.8 RBC 2.98 L Hgb 9.3 L Hct 27.6 L MCV 92.6 MCH 31.2 MCHC 33.7 RDW 13.1 Plt Count 212 MPV 9.3 L Immature Gran % (Auto) 0.4 Neut % (Auto) 62.3 Lymph % (Auto) 17.8 L Bureau % (Auto) 14.4 H Eos % (Auto) 4.4 H Baso % (Auto) 0.7 Lymph # (Auto) 1.2 Bureau # (Auto) 1.0 Eos # (Auto) 0.3 Baso # (Auto) 0.1 Abs Immat Gran (auto) 0.03 Absolute Neuts (auto) 4.2 Absolute Nucleated RBC 0.000 Nucleated RBC % (auto) 0.0 Sodium 131 L Potassium 4.6 Chloride 99 Carbon Dioxide 24 Anion Gap 13 BUN 22 H Creatinine 1.06 Estim Creat Clear Calc 46.5 Estimated GFR > 60 POC Glucose 127 H Random Glucose 131 H Calcium 8.9 Preliminary micro results at discharge 08/16/24 12:02 Blood Culture - Preliminary Blood - Venous No growth after 24 hours. 08/16/24 12:02 Blood Culture - Preliminary Blood - Venous No growth after 24 hours. Imaging XR HAnd : Radiologist's impression: ITS Impressions Hand X-Ray 08/16/24 15:20 IMPRESSION: 1. No acute bony abnormalities. 2. Dorsal soft tissue swelling. Electronically signed by: Price Su MD 08/16/2024 03:38 PM EDT Discharge Plan Discharge Anticipated Discharge Date/Time: 08/18/24 10:57 Patient Disposition: Home, Self-Care Discharge Diagnosis: Cellulitis acute kidney injury Referrals: Boskovic,Svjetlan, MD [Primary Care Provider] - 1 Week Discharge Medications: New doxycycline monohydrate 100 mg capsule 100 mg PO BID Qty: 14 0RF Continued magnesium oxide 400 mg magnesium tablet 400 mg PO BID Qty: 60 3RF amoxicillin-pot clavulanate 875-125 mg tablet 1 tab PO Q12H Qty: 20 0RF primidone 50 mg Tablet 50 mg PO BEDTIME ferrous sulfate 325 mg (65 mg iron) Tablet 325 mg PO DAILY cholecalciferol (vitamin D3) [Vitamin D3] 25 mcg (1,000 unit) Tablet 25 mcg PO DAILY lisinopril 10 mg Tablet 10 mg PO DAILY fluticasone propionate 50 mcg/actuation Blister With Device 50 mcg inhalation Q10D Rx Instructions: USE 1 SPRAY TOPICALLY EVERY 10 DAYS TO PREVENT IRRITATION FROM SENSOR atorvastatin 80 mg Tablet 80 mg PO DAILY amlodipine 5 mg Tablet 5 mg PO DAILY gabapentin 300 mg Capsule 300 mg PO TID ezetimibe 10 mg Tablet 10 mg PO DAILY Jardiance 25 mg Tablet 25 mg PO DAILY insulin glargine-yfgn 100 unit/mL (3 mL) Insulin Pen 8 unit subcut BEDTIME glucose 4 gram Tablet,Chewable 16 g PO NEEDED PRN (Reason: Low Blood Sugar) omeprazole 20 mg Capsule,Delayed Release(Dr/Ec) 20 mg PO DAILY@0630 tamsulosin [Flomax] 0.4 mg capsule 0.4 mg PO BEDTIME Qty: 60 0RF sitagliptin 100 mg tablet 100 mg PO DAILY Discharge Orders: Discharge Order (Routine); Ordered 08/18/24 Ordered By: Cleo Man Diet: Advance to usual diet Activity on Discharge: As tolerated Stand Alone Forms: Patient Portal Discharge page Print Language: Bhutanese Other Ambulatory Orders: Basic Metabolic Panel (Routine) Timeframe: 3 Days Facility: [facility] - Location: Laboratory Ordered By: Cleo Man Care Plan Goals: Stay well hydrated Take Doxycycline 100 mg two times a day for the next week Continue Amoxicillin\Clavulanate acid for the next week as well come back to ED for any worsening swelling , erythema or fever Health Concerns: Cellulitis Kidney injury Plan of Treatment: Doxycycline and Augmentin Assessment: as above
[2024-08-18 11:15] LABS: Glucose, Whole Blood 209 mg/dL (60-115)
[2024-08-18] MEDS: Insulin Lispro 100 UNIT/ML 3 ML VIAL SUBCUT (11:53)
== END 2024-08-18 13:34 | disposition home or self-care (01) | DRG 603 ==
LOC: HO.ED 16:07 → HO.EDOVER 16:50 → HO.S3 21:08
PROVIDERS: Nurse Practitioner Family; Physician Assistant; Admitting Provider Student in an Organized Health Care Education/Training Program; Emergency Provider Emergency Medicine Emergency Medical Services; PCP General Practice; Visit Provider Student in an Organized Health Care Education/Training Program
DX: L03.113 Cellulitis of right upper limb (principal); N17.9 Acute kidney failure, unspecified; E87.1 Hypo-osmolality and hyponatremia; S61.451A Open bite of right hand, initial encounter; W54.0XXA Bitten by dog, initial encounter; K21.9 Gastro-esophageal reflux disease without esophagitis; N40.0 Benign prostatic hyperplasia without lower urinary tract symptoms; D64.9 Anemia, unspecified; E11.42 Type 2 diabetes mellitus with diabetic polyneuropathy; I10 Essential (primary) hypertension; E78.5 Hyperlipidemia, unspecified; Z87.891 Personal history of nicotine dependence; Z79.84 Long term (current) use of oral hypoglycemic drugs; Z79.899 Other long term (current) drug therapy
CPT/HCPCS: 36415; 73120; 80048; 80076; 82947; 83605; 83735; 85025; 85652; 86140; 87040; 99285; J1650; J2270; J2543; J3370; J3371; J7120

== ENCOUNTER → 2024-08-16 15:02 | Outpatient (BNV) | payer OTHER, MEDICARE, SELFPAY | PROVIDERS: Emergency Provider Emergency Medicine Emergency Medical Services; PCP General Practice; Visit Provider Radiology Diagnostic Radiology | DX: M79.89 Other specified soft tissue disorders (principal) | CPT/HCPCS: 73120 ==

== ENCOUNTER → 2024-08-16 16:13 | Outpatient (BNV) | payer OTHER, MEDICARE, SELFPAY | PROVIDERS: Admitting Provider Student in an Organized Health Care Education/Training Program; Emergency Provider Emergency Medicine Emergency Medical Services; PCP General Practice; Visit Provider Physician Assistant | DX: L03.113 Cellulitis of right upper limb (principal); S61.451A Open bite of right hand, initial encounter; L08.9 Local infection of the skin and subcutaneous tissue, unspecified; W54.0XXA Bitten by dog, initial encounter | CPT/HCPCS: 99222 ==

== ENCOUNTER → 2024-08-16 16:13 | Outpatient (BNV) | payer OTHER, MEDICARE, SELFPAY | PROVIDERS: Admitting Provider Student in an Organized Health Care Education/Training Program; Emergency Provider Emergency Medicine Emergency Medical Services; PCP General Practice; Visit Provider Student in an Organized Health Care Education/Training Program | DX: N17.9 Acute kidney failure, unspecified (principal); L03.90 Cellulitis, unspecified; W54.0XXA Bitten by dog, initial encounter | CPT/HCPCS: 99223; 99232; 99239 ==

== ENCOUNTER 2024-09-04 12:43 | Outpatient (REF) | payer OTHER, SELFPAY ==
--- OUTSIDE RECORDS SUMMARY | 2024-09-04 13:12 | XMS_ITS | Patient Health Record ---
Author Organization [facility] Address [address] [place] [id number] Care Team Providers Care Vehicle Glass Technician Name Role Phone Celeste Mishra Primary Care Provider Jason Zavaleta Unavailable [phone] Reason For Referral No Information Medications Medication [...] Problem Status W/U Status Risk Notes Problem [id number] Encounter for screening for malignant neoplasm of colon (Z12.11) Active confirmed Problem [id number] Diarrhea, unspecified type (R19.7) Active confirmed Plan Of Treatment Future Test Test Name Order Date COLONOSCOPY 12/25/2019 Insurance Providers Payer Name Payer Address Payer Phone Subscriber Number Group Number Insured Name Patient Relationship to Insured Coverage Start Date Coverage End Date [facility] [employer] [address] [place] [id number] RICO KHAN Self - patient is the insured Medical (General) History Medical History History ICD Code IDDM Hypertension Legally Blind - Vision Impaired Denies MT,CVA,Lung disease,renal disease Negative colonoscopy in appr ox. 2009 at [facility] and told to do one in 10 years Told of negative stool test at home 2019 --? Cologuard GERD Surgical History Surgery Date(Month/Year)
[2024-09-04 16:53] LABS: Anion Gap 13 (12-20); Blood Urea Nitrogen 27 mg/dL (9-16); Carbon Dioxide 26 mmol/L (22-29); Chloride 102 mmol/L (96-108); Estimated Glomerular Filt Rate 53; Glucose Random 117 mg/dL (60-115); Sodium 135 mmol/L (135-145)
[2024-09-04 17:00] LABS: Potassium 6.2 mmol/L (3.3-5.1)
--- NOTE | 2024-09-04 17:04 | PM.EVENT ---
Event Note Date of Service: 09/04/24 Event Note: Critical K of 6.2 called by Lab, patient was dc on 08/18/24 and was to have bmp done 3 days later and waited this long, PCP could not be reached. Spoke to Patient over the phone and directed him to come to the ED for care Time Spent With Patient Time: Total time managing care of this patient today ____ minutes.
== END 2024-09-04 12:44 | disposition home or self-care (01) ==
LOC: HO.HMGCLDS 12:43
PROVIDERS: Visit Provider Student in an Organized Health Care Education/Training Program
DX: E87.1 Hypo-osmolality and hyponatremia (principal)
CPT/HCPCS: 36415; 80048

== ENCOUNTER 2024-09-04 17:32 | Emergency (ER) | payer OTHER, SELFPAY ==
--- NOTE | 2024-09-04 17:38 | ED_ITS ---
HPI - Recheck/Abnormal Lab/Rx General Chief Complaint: Recheck/Abnormal Lab/Rx Stated Complaint: high potassium - sent by pcp Time Seen by Provider: 09/04/24 23:09 History of Present Illness ED Provider: Akiko KINGSLEY narrative: The patient is a 74-year-old male who was recently hospitalized for an infected dog bite. He was hospitalized from August 16 to August 18. He also had an acute kidney injury at the time. His lisinopril was held and he was given fluids. Today he had outpatient labs to follow up on his electrolytes and renal function. His potassium at 12:47 PM was 6.2. Because of the elevated value he was advised to come to the emergency department. He was asymptomatic. He says he has been taking his supplemental magnesium. He has no complaints in the emergency department when I spoke to him. He says that if he does not need to be here you would like to go home. Related Data Home Medications ?Medication ?Instructions ?Recorded ?Confirmed ferrous sulfate 325 mg (65 mg 325 mg PO DAILY 01/22/20 08/16/24 iron) tablet primidone 50 mg tablet 50 mg PO BEDTIME 01/22/20 08/16/24 amlodipine 5 mg tablet 5 mg PO DAILY 06/17/24 08/16/24 atorvastatin 80 mg tablet 80 mg PO DAILY 06/17/24 08/16/24 empagliflozin 25 mg tablet 25 mg PO DAILY 06/17/24 08/16/24 (Jardiance) ezetimibe 10 mg tablet 10 mg PO DAILY 06/17/24 08/16/24 fluticasone propionate 50 50 mcg inhalation Q10D 06/17/24 08/16/24 mcg/actuation blister powder for inhalation gabapentin 300 mg capsule 300 mg PO TID 06/17/24 08/16/24 glucose 4 gram chewable tablet 16 g PO NEEDED PRN Low Blood 06/17/24 08/16/24 Sugar insulin glargine-yfgn 100 unit/mL 8 unit subcut BEDTIME 06/17/24 08/16/24 (3 mL) subcutaneous pen omeprazole 20 mg capsule,delayed 20 mg PO DAILY@0630 06/17/24 08/16/24 release sitagliptin 100 mg tablet 100 mg PO DAILY 07/12/24 08/16/24 cholecalciferol (vitamin D3) 25 25 mcg PO DAILY 08/16/24 08/16/24 mcg (1,000 unit) tablet (Vitamin D3) lisinopril 10 mg tablet 10 mg PO DAILY 08/16/24 08/16/24 Previous Rx's ?Medication ?Instructions ?Recorded tamsulosin 0.4 mg capsule (Flomax) 0.4 mg PO BEDTIME #60 caps 06/20/24 magnesium oxide 400 mg PO BID #60 tabs 07/04/24 amoxicillin 875 mg-potassium 1 tab PO Q12H #20 tabs 08/14/24 clavulanate 125 mg tablet doxycycline monohydrate 100 mg 100 mg PO BID #14 caps 08/18/24 capsule oxycodone 5 mg tablet 5 mg PO Q6H PRN Breakthrough Pain 08/18/24 #12 tabs Allergies Allergy/AdvReac Type Severity Reaction Status Date / Time No Known Allergies Allergy Verified 09/04/24 17:40 Review of Systems 2 Review of Systems: Yes all other systems are reviewed and are negative [facility] Past Medical History Medical History Peripheral neuropathy Diabetes Hyperlipidemia HTN (hypertension) Surgical History History of colonoscopy Social History Social History Household Members: Family Housing: House Do you presently have visiting nurse or other home services: No Alcohol intake: never Comment: pt declines bed alarm, rings appropriately, Patient Tobacco Use Status: Former Tobacco user Tobacco use type: Cigar Cigarettes Per Day: 1 Smoked in Last 30 Days: No Second Hand Smoke Exposure: No Use of substances other than those prescribed or required for medical reasons: No Advance Directives: Yes Advance Directives on File: Yes Advance Directives Date on File: 06/21/24 service: Yes Physical Exam 2 Vital Signs: Vital Signs: Last Vital Signs Temp 98.1 F 09/04/24 23:35 Pulse 88 09/04/24 23:35 Resp 16 09/04/24 23:35 BP 179/88 H 09/04/24 23:35 Pulse Ox 99 09/04/24 23:35 O2 Del Method Room Air 09/04/24 23:35 BMI result Body Mass Index 20.4 Const: Other: The patient is a somewhat chronically ill-appearing 74-year-old male who was awake and alert, in no apparent distress. HEENT: Other: Face is symmetrical. Mucous membranes moist. Eyes: General: appearance normal, both eyes and all related structures Neck: Neck: Yes no JVD Resp: Effort & Inspection: normal respiratory effort Auscultation: clear to auscultation bilaterally Cardio: Rate: regular rate Rhythm: regular rhythm Heart sounds: S1 normal heart sound present and S2 normal heart sound present GI: Other: Abdomen is soft and nontender Skin: Other: Skin is dry and unremarkable Neuro: Other: The patient is awake and alert with a normal mental status. Cranial nerves are grossly intact. He moves his extremities symmetrically. Extrem: Other: No peripheral edema Course Course Course Narrative: 09/04/24 1738 REGINO Watts This is a Rapid Medical Examination (RME) performed by Moses Restrepo PA-C in triage. Full HPI, ROS, assessment and treatment plan per primary provider in the Main ED. Hx: 74 yo M hx T2DM, HLD, HTN here for elevated potassium levels. had routine blood work today, was contacted and told his potassium is 6.2 - advised to come to the ED. no complaints at present. not on any potassium supplementation. PE/vitals: well appearing, tachy, hypertensive Plan: labs, EKG Medical Decision Making Medical Decision Making MDM Narrative: The patient is a 74-year-old male who had outpatient lab work today that showed a potassium 6.2. He was advised to come to the emergency room on this basis. His potassium here is 5.0. I suspect that the elevated potassium earlier today was probably artifactual. The patient has a magnesium of 1.4. He is on magnesium supplementation at home. He does not wish to have any IV therapy if it is not absolutely necessary. He will therefore be discharged to continue his magnesium supplementation at home as well as his other medications. He should follow up with his regular doctor soon. Lab Data 09/04/24 18:09 09/04/24 18:09 Labs: Lab Results 09/04/24 Range/Units 18:09 WBC 7.5 (4.8-10.8) X10*3/uL RBC 3.23 L (4.60-5.80) X10*6/uL Hgb 10.3 L (14.0-18.0) g/dl Hct 29.7 L (42.0-52.0) % MCV 92.0 (80.0-98.0) fL MCH 31.9 (27.0-33.0) pg MCHC 34.7 (31.0-36.0) g/dl RDW 13.3 (11.0-16.0) % Plt Count 246 (160-400) X10*3/uL MPV 9.3 L (9.4-12.4) fL Immature Gran % (Auto) 0.4 (0.0-0.4) % Neut % (Auto) 54.2 (45-73) % Lymph % (Auto) 29.9 (20-40) % Crook % (Auto) 9.1 (2-11) % Eos % (Auto) 5.2 H (0-4) % Baso % (Auto) 1.2 (0-2) % Lymph # (Auto) 2.2 (1.2-4.9) X10*3/uL Crook # (Auto) 0.7 (0.1-1.2) X10*3/uL Eos # (Auto) 0.4 (0.0-0.4) X10*3/uL Baso # (Auto) 0.1 (0.0-0.2) X10*3/uL Abs Immat Gran (auto) 0.03 (0.00-0.03) X10*3/uL Absolute Neuts (auto) 4.1 (2.0-8.3) x10*3/uL Absolute Nucleated RBC 0.000 (0.0-0.012) X10*3/uL Nucleated RBC % (auto) 0.0 (0.0-0.2) /100WBC Sodium 133 L (135-145) mmol/L Potassium 5.0 (3.3-5.1) mmol/L Chloride 103 (96-108) mmol/L Carbon Dioxide 25 (22-29) mmol/L Anion Gap 10 L (12-20) BUN 22 H (9-16) mg/dL Creatinine 1.37 (0.5-1.4) mg/dL Estim Creat Clear Calc 36.0 Estimated GFR 51 Random Glucose 185 H (60-115) mg/dL Calcium 8.9 (8.4-10.2) mg/dL Magnesium 1.4 L* (1.6-2.6) mg/dL Total Bilirubin 0.2 (0.0-1.0) mg/dL AST 30 (5-37) U/L ALT 19 (0-40) U/L Alkaline Phosphatase 85 (39-117) U/L Total Protein 7.1 (6.5-8.0) g/dL Albumin 3.6 (3.5-5.0) g/dL Discharge Plan Discharge Clinical Impression: Hypomagnesemia Patient Disposition: Home, Self-Care Additional Instructions: Your potassium level on your outpatient lab testing earlier today was elevated but your potassium is normal on our testing here tonight. Your magnesium level is somewhat low. Please make sure that you continue your supplemental magnesium as well as your other medications. Also please make sure you take a lot of fluids to keep yourself well hydrated. Please follow up soon with your regular doctor to keep an eye on your magnesium and your other issues. Return to the emergency room if significantly worse. Prescriptions: No Action magnesium oxide 400 mg magnesium tablet 400 mg PO BID Qty: 60 3RF amoxicillin-pot clavulanate 875-125 mg tablet 1 tab PO Q12H Qty: 20 0RF primidone 50 mg Tablet 50 mg PO BEDTIME ferrous sulfate 325 mg (65 mg iron) Tablet 325 mg PO DAILY cholecalciferol (vitamin D3) [Vitamin D3] 25 mcg (1,000 unit) Tablet 25 mcg PO DAILY lisinopril 10 mg Tablet 10 mg PO DAILY doxycycline monohydrate 100 mg capsule 100 mg PO BID Qty: 14 0RF oxycodone 5 mg Tablet 5 mg PO Q6H PRN (Reason: Breakthrough Pain) Qty: 12 0RF Rx Instructions: Partial Fill upon patient request. fluticasone propionate 50 mcg/actuation Blister With Device 50 mcg inhalation Q10D Rx Instructions: USE 1 SPRAY TOPICALLY EVERY 10 DAYS TO PREVENT IRRITATION FROM SENSOR atorvastatin 80 mg Tablet 80 mg PO DAILY amlodipine 5 mg Tablet 5 mg PO DAILY gabapentin 300 mg Capsule 300 mg PO TID ezetimibe 10 mg Tablet 10 mg PO DAILY Jardiance 25 mg Tablet 25 mg PO DAILY insulin glargine-yfgn 100 unit/mL (3 mL) Insulin Pen 8 unit subcut BEDTIME glucose 4 gram Tablet,Chewable 16 g PO NEEDED PRN (Reason: Low Blood Sugar) omeprazole 20 mg Capsule,Delayed Release(Dr/Ec) 20 mg PO DAILY@0630 tamsulosin [Flomax] 0.4 mg capsule 0.4 mg PO BEDTIME Qty: 60 0RF sitagliptin 100 mg tablet 100 mg PO DAILY Referrals: [facility] [Outside] Interventions: ED Discharge Assessment Last Done: 09/04/24 23:35 Discharge Date/Time: 09/04/24 23:35 Print Language: Macedonian
[2024-09-04 17:39] VITALS: BP 159/100; PULSE 104; RESP 20; TEMP 36.9; O2SAT 99; BMI 20.4
--- NOTE | 2024-09-04 17:40 | ECG_ITS ---
Test Reason : HYPERKALEMIA Blood Pressure : */* mmHG Vent. Rate : 94 BPM Atrial Rate : 94 BPM P-R Int : 166 ms QRS Dur : 80 ms QT Int : 322 ms P-R-T Axes : 51 39 64 degrees QTcB Int : 402 ms Normal sinus rhythm with sinus arrhythmia Normal ECG When compared with ECG of 16-Jun-2024 14:25, No significant change was found Referred By: Nydia Restrepo Electronically Signed By: GALEN MCKEON
[2024-09-04 18:15] LABS: MANUAL DIFF FLAG NO
[2024-09-04 18:24] LABS: Basophils Absolute Auto 0.1 X10*3/uL (0.0-0.2); Basophils Percent Auto 1.2 % (0-2); Eosinophils Absolute Auto 0.4 X10*3/uL (0.0-0.4); Eosinophils Percent Auto 5.2 % (0-4); Hematocrit 29.7 % (42.0-52.0); Hemoglobin 10.3 g/dl (14.0-18.0); Imm Gran Abs Auto 0.03 X10*3/uL (0.00-0.03); Imm Gran Pct Auto 0.4 % (0.0-0.4); Lymphocytes Absolute Auto 2.2 X10*3/uL (1.2-4.9); Lymphocytes Percent Auto 29.9 % (20-40); Mean Corpuscular HGB Conc 34.7 g/dl (31.0-36.0); Mean Corpuscular Hemoglobin 31.9 pg (27.0-33.0); Mean Platelet Volume 9.3 fL (9.4-12.4); Monocytes Absolute Auto 0.7 X10*3/uL (0.1-1.2); Monocytes Percent Auto 9.1 % (2-11); Neutrophils Absolute Auto 4.1 x10*3/uL (2.0-8.3); Neutrophils Percent Auto 54.2 % (45-73); Platelet Count 246 X10*3/uL (160-400); Red Blood Count 3.23 X10*6/uL (4.60-5.80); Red Cell Distribution Width 13.3 % (11.0-16.0); White Blood Count 7.5 X10*3/uL (4.8-10.8)
[2024-09-04 18:51] LABS: Alanine Aminotransferase 19 U/L (0-40); Albumin Level 3.6 g/dL (3.5-5.0); Alkaline Phosphatase 85 U/L (39-117); Anion Gap 10 (12-20); Aspartate Amino Transferase 30 U/L (5-37); Bilirubin Total 0.2 mg/dL (0.0-1.0); Blood Urea Nitrogen 22 mg/dL (9-16); Calcium 8.9 mg/dL (8.4-10.2); Carbon Dioxide 25 mmol/L (22-29); Chloride 103 mmol/L (96-108); Estimated Glomerular Filt Rate 51; Glucose Random 185 mg/dL (60-115); Magnesium 1.4 mg/dL (1.6-2.6); Sodium 133 mmol/L (135-145); Total Protein 7.1 g/dL (6.5-8.0)
[2024-09-04 19:46] VITALS: BP 179/88; PULSE 88; RESP 16; TEMP 36.7; O2SAT 99
[2024-09-04 23:35] VITALS: BP 179/88; PULSE 88; RESP 16; TEMP 36.7; O2SAT 99
== END 2024-09-04 23:35 | disposition home or self-care (01) ==
PROVIDERS: Physician Assistant Medical; Emergency Provider Emergency Medicine
DX: E83.42 Hypomagnesemia (principal); E11.9 Type 2 diabetes mellitus without complications; I10 Essential (primary) hypertension; E78.5 Hyperlipidemia, unspecified; Z79.899 Other long term (current) drug therapy
CPT/HCPCS: 36415; 80053; 83735; 85025; 93005; 99283; 99284

== ENCOUNTER → 2024-09-04 17:40 | Outpatient (BNV) | payer OTHER, SELFPAY | PROVIDERS: Emergency Provider Emergency Medicine; Visit Provider Internal Medicine | DX: E87.5 Hyperkalemia (principal) | CPT/HCPCS: 93010 ==

== ENCOUNTER 2024-09-13 07:49 | Day surgery (SDC) | payer OTHER, SELFPAY ==
--- OUTSIDE RECORDS SUMMARY | 2024-08-20 12:16 | XMS_ITS | Encounter Summary ---
Author Name [facility] [place] Address [address] [place] [id number] Care Team Providers Care Sewing Trimmer Name Role Phone TRESSA BOND Primary Care [...] PART B Jan 01, 2014 PART B [id number] PARISH KHAN PATIENT MEDICARE (WNR) MEDICARE (M) PART B Jan 01, 2014 PART B [id number] [place] K[place] PATIENT MEDICARE (WNR) MEDICARE (M) PART A May 04, 2013 PART A [id number] [place] PATIENT MEDICARE (WNR) MEDICARE (M) PART A May 04, 2013 PART A [id number] PARISH KHAN PATIENT [facility] (R) MEDICARE ADVANTAGE [facility] ([facility]) Apr 03, 2016 [facility] ([facility]) [id number] [phone] ERIN,PARISH REAL PATIENT Selected Encounter This section includes the information on record at [place] for the Encounter. Date/Time Encounter Type Encounter Description Reason Provider Source August 16, 2024 10:15 AM OFF/OP EST AUGUST X REQ PHY/QHP PRIMARY CARE/MEDICINE ICD-10-CM S61.451A Open bite of right hand, initial encounter CHON URBAN [facility] Encounter Template Text not used by VA Assessments - Encounter Diagnoses This section includes the primary and secondary diagnoses documented for the Encounter. Date/Time Primary/Secondary Diagnosis Diagnosis Name Provider Source August 16, 2024 11:03 AM PRIMARY Open bite of right hand, initial encounter CHON URBAN [facility] Plan of Treatment: Future Appointments (+ 6 months) and Future Tests (+/- 45 days) The Plan of Treatment section includes future care activities for the patient from all [place] [facility]. This section includes future appointments and future orders which are active, pending or scheduled. Future Appointments This section includes appointments that were scheduled to occur 6 months from the date of the Encounter, up to a maximum of 20 appointments. The data comes from all [place] treatment facilities. Appointment Date/Time Appointment Type Appointme nt Facility Name August 29, 2024 11:00 AM AMBULATORY [facility] Sep 25, 2024 10:00 AM [facility] Oct 02, 2024 10:30 AM [facility]ATORY - MEDICINE [facility] Oct 16, 2024 10:00 AM AMBULATORY - MEDICINE [facility] Dec 25, 2024 11:00 AM [facility] Active, Pending, and Scheduled Orders This section includes a listing of several types of active, pending, and scheduled orders, including clinic medications orders, diagnostic test orders, procedure orders and consult orders; where the start date of the order is 45 days before the date of the Encounter or 45 days after the date of theEncounter. The data comes from all [place] treatment facilities. Test Date/Time Test Type Test Details Facility Name Jul 08, 2024 04:41 PM Consult Order COMMUNITY CARE-NEPHROLOGY Cons Real Estate Asset Manager's Choice [facility] Vital Signs: All taken on the encounter date This section contains inpatient and outpatient Vital Signs collected on the date of the Encounter. Date/Time Temperature Pulse Blood Pressure Respiratory Rate SP02 Pain Height Weight Body Mass Index Source August 16, 2024 10:33 AM 98.4 100 129/[address] [facility] Social History: Smoking Status (Most current) and Tobacco Use (All prior to encounter date) This section includes the most current, and the historical, smoking and tobacco- related health factors from the [place] facility where the Encounter took place. Current Smoking Status This section includes the most current smoking, or tobacco-related health factor, from the [place] facility where the Encounter took place. Date/Time Current Smoking Status Comment Facil ity Jan 20, 2023 10:00 AM VA-TOBACCO FORMER USER [facility] Tobacco Use History This section includes a history of the smoking, or tobacco-related health factors, that were collected on or before the date of the Encounter. The data comes from the [place] facility where the Encounter took place. Date/Time Smoking Status/Tobacco Use Comment F acility Jan 20, 2023 10:00 AM VA-TOBACCO QUIT 15 YRS OR MORE [facility] Mar 29, 2021 11:00 AM VA-TOBACCO FORMER USER [facility] Mar 29, 2021 11:00 AM VA-TOBACCO QUIT 5 TO < 15 YRS [facility] Jul 12, 2018 02:39 PM VA-TOBACCO FORMER USER [facility] Jul 12, 2018 02:39 PM VA-TOBACCO QUIT 15 YRS OR MORE [facility] Jul 04, 2017 10:22 AM QUIT TOBACCO USE > 7 YEARS AGO stopped 7-10 years ago [facility] Oct 19, 2016 10:08 AM QUIT TOBACCO USE 1 -7 YEARS AGO [facility] Feb 01, 2016 01:15 PM QUIT TOBACCO USE 1 -7 YEARS AGO 1.5 yrs. [facility] Dec 11, 2014 02:03 PM QUIT TOBACCO USE 1 -7 YEARS AGO [facility] Feb 17, 2014 02:23 PM CURRENT SMOKER 2 CIGARS A DAY [facility] Feb 17, 2014 02:23 PM V1-PT DECLINES TOB ACCO CESSATION MEDS [facility] Feb 17, 2014 02:23 PM V1-PT THINKING ABO UT QUIT TOBACCO USE [facility] Advance Directives: All historical and current Section Date Range: From patient's date of to the date document was created. This section includes ALL of a patient's completed or amended [place] Advance and Rescinded Directives. The entries below indicate that a directive exists for the patient, but an actual copy is not included with this document. The data comes from all [facility]. Date Advance Directives Provider Source Mar 29, 2021 ADVANCE DIRECTIVE TYSON STORY [place] Radiology Reports: +/- 30 days of the [...] the Encounter. The data comes from all [place] treatment facilities. Date/Time Radiology Report Provider Source August 06, 2024 10:50 AM CHEST (2 VIEWS): RICO KHAN ENSTEFFANY [id number] -1950 M Exm Date: AUGUST 06, 2024@10:50 Req Phys: TRESSA BOND Pat Loc: [facility]/NO/BLIND REHAB TELE (Req Img Loc: [facility]BUILDING 1 Service: [place] [address] (Case [id number] COMPLETE) CHEST (2 VIEWS) (RAD Detailed) CPT:07592 Reason for Study: Recent pneumonia Clinical History: IDDM, Report Status: Verified Date Reported: AUGUST 06, 2024 Date Verified: AUGUST 06, 2024 Icebox Worker E-Sig:/ES/BETTY BURT JR Report: Study: PA and [...] Primary Interpreting Staff: BETTY BURT JR, Radiologist (Icebox Worker) /BETTY LEIVA JR [facility] Encounter Notes: All associated encounter notes This section contains the clinical notes associated to the Encounter. Date/Time Encounter Note(s) Provider Source August 16, 2024 10:34 AM PRIMARY CARE NOTE: LOCAL TITLE: WALK-IN NOTE PRIMARY CARE (T) STANDARD TITLE: PRIMARY CARE NOTE DATE OF NOTE: AUGUST 16, 2024@10:34 ENTRY DATE: AUGUST 16, 2024@10:34:33 AUTHOR: CHON URBAN EXP COSIGNER: URGENCY: STATUS: COMPLETED Data: 74year old MALE reports to Primary Care clinic for Walk-In visit. 's PCP is TRESSA BOND, Today Vet walks in to clinic with complaint of dog bite Last recorded Vital Signs are: Temperature:98.4 F [36.9 C] (08/16/2024 10:33) Pulse:100 (08/16/2024 10:33) Blood Pressure:129/67 (08/16/2024 10:33) Respiration:18 (08/16/2024 10:33) Pain:9 (08/16/2024 10:33) Vet reports current allergies are: Remote Allergy Data No Remote Allergy/ADR Data available for this patient Current Medications from Active Med list include: Active Outpatient Medications (including Supplies): Active Outpatient Medications Status ====== 1) ADHESIVE REMOVER SPRAY H#5327 SUFFICIENT AMOUNT TOPICALLY ACTIVE EVERY 10 DAYS 2) AMLODIPINE BESYLATE 5MG TAB TAKE ONE TABLET BY MOUTH ONCE ACTIVE DAILY FOR BLOOD PRESSURE/HEART, DO NOT TAKE WITH GRAPEFRUIT JUICE Indication: FOR HIGH BLOOD PRESSURE 3) AMOXICILLIN 875/CLAV K 125MG TAB TAKE 1 TABLET BY MOUTH ACTIVE TWICE DAILY FOR INFECTION Indication: DOG BITE 4) ATORVASTATIN CALCIUM 80MG TAB TAKE ONE TABLET BY MOUTH DAY ACTIVE FOR CHOLESTEROL 5) CHOLECALCIF 25MCG (D3-1,000UNIT) TAB TAKE ONE TABLET BY ACTIVE MOUTH ONCE DAILY FOR VITAMIN SUPPLEMENTATION Indication: FOR VITAMIN D DEFICIENCY 6) EMPAGLIFLOZIN 25MG TAB TAKE ONE TABLET BY MOUTH ONCE DAILY ACTIVE Indication: FOR TYPE 2 DIABETES MELLITUS 7) EZETIMIBE 10MG TAB TAKE ONE TABLET BY MOUTH ONCE DAILY TO ACTIVE LOWER CHOLESTEROL Indication: FOR HIGH CHOLESTEROL 8) FERROUS SULFATE 325MG TAB TAKE ONE TABLET BY MOUTH ONCE ACTIVE DAILY Indication: TO SUPPLEMENT IRON 9) FLUTICASONE PROP 50MCG 120D NASAL INHL INSTILL 1 SPRAY ACTIVE TOPICALLY EVERY 10 DAYS Indication: TO PREVENT IRRITATION FROM SENSOR 10) GABAPENTIN 300MG CAP TAKE ONE CAPSULE BY MOUTH THREE TIMES A ACTIVE DAY CHANGE FROM TABLETS Indication: FOR NERVE PAIN 11) GLUCOSE 4GM CHEW TAB CHEW FOUR TABLETS BY MOUTH ONE TIME ACTIVE NEEDED Indication: FOR LOW BLOOD SUGAR 12) GLUCOSE SENSOR DEXCOM G7 USE 1 SENSOR DIRECTED EVERY 10 ACTIVE DAYS Indication: DIABETES 13) INSULIN,GLARGINE 100 UNT/ML 3ML SOLOSTAR INJECT 8 UNITS ACTIVE SUBCUTANEOUSLY ONCE DAILY Indication: FOR DIABETES 14) LISINOPRIL 10MG TAB TAKE ONE TABLET BY MOUTH ONCE DAILY TO ACTIVE CONTROL BLOOD PRESSURE Indication: FOR HIGH BLOOD PRESSURE 15) MAGNESIUM OXIDE 400MG TAB TAKE ONE TABLET BY MOUTH TWICE ACTIVE DAILY Indication: FOR MAGNESIUM SUPPLEMENTATION 16) NEEDLE,PEN 32G,4MM USE 1 NEEDLE SUBCUTANEOUSLY ONCE DAILY ACTIVE FOR USE WITH PEN DEVICE 17) OMEPRAZOLE 20MG EC CAP TAKE ONE CAPSULE BY MOUTH EVERY ACTIVE MORNING 30 MINUTES BEFORE BREAKFAST 18) PRIMIDONE 50MG TAB TAKE ONE TABLET BY MOUTH AT BEDTIME ACTIVE Indication: TREMOR 19) SITAGLIPTIN (EQV-ZITUVIO) 100MG TAB TAKE ONE TABLET BY MOUTH ACTIVE ONCE DAILY Indication: DIABETES 20) TAMSULOSIN HCL 0.4MG CAP TAKE ONE CAPSULE BY MOUTH AT ACTIVE BEDTIME 21) TRANSPARENT DRESSING 2 3/8IN X 2 3/4IN APPLY 1 DRESSING ACTIVE TOPICALLY EVERY 14 DAYS Action: states he was bitten by his sons dog 3 days ago. States he went to urgent care Script for antibiotic and naproxen ordered. States Dr Bond needed to write script for antibiotic but for some reason the naproxen was not filled States he is having 9/10 pain [place] here to see if he can have naproxen filled and to have wound looked at. States he has been taking the antibiotic since Monday Old dressing removed, noted with purulent drainage. Moderate amount Right hand and wrist with significant Swelling Erythema Pain diabetic, states blood sugars have been elevated since event 3 puncture wounds, 2 posterior wrist and 1 on the lateral wrist. Lateral wrist wound with yellow wound bed. + radial pulse Denies numbness or tingling to fingers. States walk in clinic asked him about dog bite and vaccines [place] states dog is vaccinated. Evaluated by Alejo Lutz NP [place] need to go to hospital for evaluation will go to [facility] ER via private vehicle. Reminders Info Only: [facility] Video Connect Capable DUE NOW Homelessness/Food Insecurity Screen Jul 23 HIV Screening Dec 08 Medication Reconciliation DUE NOW RHS Screen Jul 23 PAVE Foot Check Oct 18 (Optional) Whole Health Documentation DUE NOW Response: /kayla/ CHON URBAN RN PRIMARY CARE RN Signed: 08/16/2024 11:03 Receipt Acknowledged By: 08/19/2024 06:49 /kayla/ ALEJO LUTZ NP NURSE PRACTITIONER [facility]
--- OUTSIDE RECORDS SUMMARY | 2024-08-20 12:16 | XMS_ITS ---
Author Name [place] Address [address] [place] [address] Care Team Providers Care Supervisor Calibration Name Role Phone TRESSA BOND Primary Care [...] PART B Jan 01, 2014 PART B [id number] [place] K[place]AN PATIENT MEDICARE (WNR) MEDICARE (M) PART B Jan 01, 2014 PART B [id number] [place] K[place] PATIENT MEDICARE (WNR) MEDICARE (M) PART A May 04, 2013 PART A [id number] PAR[place] KHAN PATIENT MEDICARE (WNR) MEDICARE (M) PART A May 04, 2013 PART A [id number] PARISH KHAN PATIENT [facility] (R) MEDICARE ADVANTAGE [facility]) Apr 03, 2016 [facility] ([facility]) [id number] [phone] ERINPARISH PATIENT Selected Encounter This section includes the information on record at [place] for the Encounter. Date/Time Encounter Type Encounter Description Reason Pro vider Source August 16, 2024 10:16 AM Outpatient Encounter PRIMARY CARE/MEDICINE IHE Encounter Template Text not used by [place] Plan of Treatment: Future Appointments (+ 6 [...] 11:00 AM AMBULATORY - REHAB MEDICIN E [facility] Sep 25, 2024 10:00 AM AM[facility]ULATORY - MEDICINE [facility] Oct 02, 2024 10:30 AM AM[facility]ULATORY - MEDICINE [facility] Oct 16, 2024 10:00 AM AMBULATORY - MEDICINE [facility] Dec 25, 2024 11:00 AM AMBULATORY - MEDICINE [facility] Active, Pending, and Scheduled Orders This section includes a listing of several types of active, pending, and scheduled orders, including clinic medications orders, diagnostic test orders, procedure orders and consult orders; where the start date of the order is 45 days before the date of the Encounter or 45 days after the date of theEncounter. The data comes from all [place] treatment facilities. Test Date/Time Test Type Test Details Facility Name Jul 08, 2024 04:41 PM Consult Order COMMUNITY CARE-NEPHROLOGY Cons Eyeglass Frames Inspector's Choice [place] Social History: Smoking Status (Most current) and [...] Facil ity Jan 29, 2024 10:34 AM [place]-TOBACCO NEVER USED [facility] Tobacco Use History This section includes a history of the smoking, or tobacco-related health factors, that were collected on or before the date of the Encounter. The data comes from the [place] facility where the Encounter took place. Date/Time Smoking Status/Tobacco Use Comment F acility Dec 19, 2019 12:00 PM [place]-TOBACCO FORMER USER [facility] Dec 19, 2019 12:00 PM [place]-TOBACCO QUIT 1 TO < 5 YRS [facility] Advance Directives: All historical and current [...] Mar 29, 2021 ADVANCE DIRECTIVE TYSON STORY [facility] Radiology Reports: +/- 30 days of [...] the Encounter. The data comes from all [place] treatment facilities. Date/Time Radiology Report Provider Source August 06, 2024 10:50 AM CHEST (2 VIEWS): RICO KHAN [id number] -1950 M Exm Date: AUGUST 06, 2024@10:50 Req Phys: TRESSA BOND Pat Loc: [facility]/NO/BLIND REHAB TELE (Req Img Loc: [facility] Service: [place] [facility] [place] [address] (Case 94 COMPLETE) CHEST (2 VIEWS) (RAD Detailed) CPT:17221 Reason for Study: Recent pneumonia Clinical History: IDDM, Report Status: Verified Date Reported: AUGUST 06, 2024 Date Verified: AUGUST 06, 2024 Senior Research Consultant E-Sig:/ES/BETTY BURT JR Report: Study: PA and [...] Interpreting Staff: BETTY BURT JR, Radiologist (Senior Research Consultant) /EABETTY BALBUENA JR [place] [facility] Encounter Notes: All associated encounter notes This section contains the clinical notes associated to the Encounter. Date/Time Encounter Note(s) Provider Source August 16, 2024 10:16 AM PRIMARY CARE NOTE: LOCAL TITLE: WALK-IN NOTE PRIMARY CARE (T) STANDARD TITLE: PRIMARY CARE NOTE DATE OF NOTE: AUGUST 16, 2024@10:16 ENTRY DATE: AUGUST 16, 2024@10:16:09 AUTHOR: WOJCIECH CRUZ EXP COSIGNER: URGENCY: STATUS: COMPLETED <====Click to Start Advanced Medical Support [place] presents to the Primary Care clinic with the following request: [ ]Medication Renewal/Refill [ ]Consultation with Team RN [ X ]Symptoms [ ]Other The states they are: [ X ]Waiting [ ]Not Waiting Yes Walk in visit scheduled with PACT Nurse [ X ] At this encounter the 's demographics were verified. [ X ] At this encounter the [place]'s Insurance information was verified. [ X ] At this encounter the below scheduled visits for the were discussed and appointment reminder card was offered. Future appointments: 08/29/2024 11:00 NHM OPTOMETRY LOW VSN 09/25/2024 10:00 SPR PACT EIGHT 10/02/2024 10:30 SPR PODIATRY 1 10/16/2024 10:00 SPR DM EDUC RN 1 12/25/2024 11:00 SPR PACT EIGHT 08/12/2025 10:00 NHM OPTOMETRY 3 Walk in for sick call, needs bandage on wrist changed and RX for Naproxen /es/ TONIMARIE NANCY AMSA Signed: 08/16/2024 10:17 Receipt Acknowledged By: 08/16/2024 12:52 /es/ KIMBERLI LEMUSN RN- REGISTERED NURSE 08/16/2024 10:26 /es/ COHN URBAN, DATA SECURITY COORDINATOR RN WOJCIECH CRUZ
--- OUTSIDE RECORDS SUMMARY | 2024-08-20 12:17 | XMS_ITS | Encounter Summary ---
Author Name [facility] [place] Address [address] [place] [id number] Care Team Providers Care Civil Engineering Director Name Role Phone TRESSA BOND Primary Care [...] PART B Jan 01, 2014 PART B [id number] [place] PATIENT MEDICARE (WNR) MEDICARE (M) PART B Jan 01, 2014 PART B [id number] [place] K[place]AN PATIENT MEDICARE (WNR) MEDICARE (M) PART A May 04, 2013 PART A [id number] [place] K[place] PATIENT MEDICARE (WNR) MEDICARE (M) PART A May 04, 2013 PART A [id number] PAR[place] KHAN PATIENT [facility] (WNR) MEDICARE ADVANTAGE [facility] ([facility]) Apr 03, 2016 [facility] ([facility]) [id number] [phone] ERINPAR[place] PATIENT Selected Encounter This section includes the information on record at [place] for the Encounter. Date/Time Encounter Type Encounter Description Reason Pro vider Source August 16, 2024 12:00 AM Outpatient Encounter EVENT (HISTORICAL) IHE Encounter Template Text not used by [place] Plan of Treatment: Future Appointments (+ 6 months) and Future Tests (+/- 45 days) The Plan of Treatment section includes future care activities for the patient from all [place] treatmentfacilities. This section includes future appointments and future orders which are active, pending or scheduled. Future Appointments This section includes appointments that were scheduled to occur 6 months from the date of the Encounter, up to a maximum of 20 appointments. The data comes from all [place] treatment facilities. Appointment Date/Time Appointment Type Appointme nt Facility Name August 29, 2024 11:00 AM AMBULATORY - REHAB MEDICIN E [facility] Sep 25, 2024 10:00 AM AM[facility]ULATORY - MEDICINE [facility] Oct 02, 2024 10:30 AM AM[facility]ULATORY - MEDICINE [facility] Oct 16, 2024 10:00 AM AMBULATORY - MEDICINE [facility] Dec 25, 2024 11:00 [facility] Active, Pending, and Scheduled Orders This section includes a listing of several types of active, pending, and scheduled orders, including clinic medications orders, diagnostic test orders, procedure orders and consult orders; where the start date of the order is 45 days before the date of the Encounter or 45 days after the date of theEncounter. The data comes from all [place] treatment facilities. Test Date/Time Test Type Test Details Facility Name Jul 08, 2024 04:41 PM Consult Order COMMUNITY [facility]-NEPHROLOGY Cons Washroom Operator's Choice [place] Social History: Smoking Status (Most current) and Tobacco Use (All prior to encounter date) This section includes the most current, and the historical, smoking and tobacco- related health factors from the [place] facility where the Encounter took place. Current Smoking Status This section includes the most current smoking, or tobacco-related health factor, from the [place] facility where the Encounter took place. Date/Time Current Smoking Status Comment Facil ity Jan 29, 2024 10:34 AM [place]-TOBACCO NEVER USED [facility] Tobacco Use History This section includes a history of the smoking, or tobacco-related health factors, that were collected on or before the date of the Encounter. The data comes from the [place] facility where the Encounter took place. Date/Time Smoking Status/Tobacco Use Comment F acility Dec 19, 2019 12:00 PM [place]-TOBACCO FORMER USER [facility] Dec 19, 2019 12:00 PM [place]-TOBACCO QUIT 1 TO < 5 YRS [facility] Advance Directives: All historical and current Section Date Range: From patient's date of to the date document was created. This section includes ALL of a patient's completed or amended [place] Advance and Rescinded Directives. The entries below indicate that a directive exists for the patient, but an actual copy is not included with this document. The data comes from all [place] facilities. Date Advance Directives Provider Source Mar 29, 2021 ADVANCE DIRECTIVE TYSON STORY [facility] Radiology Reports: +/- 30 days [...] the Encounter. The data comes from all [place] treatment facilities. Date/Time Radiology Report Provider Source August 06, 2024 10:50 AM CHEST (2 VIEWS): RICO KHAN [id number] -1950 M Exm Date: AUGUST 06, 2024@10:50 Req Phys: TRESSA BOND Pat Loc: [facility]/NO/BLIND REHAB TELE (Req Img Loc: [facility] Service: Unknown [place] [address] (Case 94 COMPLETE) CHEST (2 VIEWS) (RAD Detailed) CPT:08849 Reason for Study: Recent pneumonia Clinical History: IDDM, Report Status: Verified Date Reported: AUGUST 06, 2024 Date Verified: AUGUST 06, 2024 Phlebotomist Associate E-Sig:/ES/BETTY BURT JR Report: Study: PA and [...] Primary Interpreting Staff: BETTY BURT JR, Radiologist (Phlebotomist Associate) /EAD BETTY BURT JR [facility] Encounter Notes: All associated encounter notes This section contains the clinical notes associated to the Encounter. Date/Time Encounter Note(s) Provider Source August 16, 2024 12:00 AM RADIOLOGY NONVA NO TE: LOCAL TITLE: NON-[place] RADIOLOGY STANDARD TITLE: RADIOLOGY NONVA NOTE DATE OF NOTE: AUGUST 16, 2024 ENTRY DATE: AUGUST 16, 2024@15:57:36 AUTHOR: CHUCK BOO EXP COSIGNER: URGENCY: STATUS: COMPLETED VistA Imaging - Scanned Document SCANNED DOCUMENT SIGNATURE NOT REQUIRED Electronically Filed: 08/16/2024 by: CHUCK RDZ [facility] August 16, 2024 12:00 AM NONVA NOTE: LOCAL TITLE: NON-VA HOSPITALIZATIONS/ER STANDARD TITLE: NONVA NOTE DATE OF NOTE: AUGUST 16, 2024 ENTRY DATE: AUGUST 19, 2024@11:05:06 AUTHOR: GWEN HERRON MA EXP COSIGNER: URGENCY: STATUS: COMPLETED VistA Imaging - Scanned Document SCANNED DOCUMENT SIGNATURE NOT REQUIRED Electronically Filed: 08/19/2024 by: GWEN HERRON DOCTOR OF NAPRAPATHY GWEN HERRON [facility]
--- OUTSIDE RECORDS SUMMARY | 2024-08-20 12:17 | XMS_ITS | Continuity of Care Document ---
Author Name [facility] Organization [facility] Care Team Providers Care Director Of Digital Technology Name Role Phone [facility] Unavailable Unavailable Problems Combined list of problems from Department of Defense and Veterans Affairs facilities. It does not include entries that were removed or entered in error. Problem Status Onset Date Problem Type Date of Resolution Comments Source Age-related nuclear cataracts of both eyes Active Condition Apr 17, 2024 Entered By: DARLIN BALDWIN Comment: Per [facility] note Dr Rubens Robbins [place] Chronic kidney disease stage 3 due to type 2 diabetes mellitus Active Condition Apr 17 Entered By: DARLIN BALDWIN Comment: 04/15/24 GFR 43 [facility] Depressive disorder Active Condition [place] Diabetes mellitus type 2 Active Condition Apr 17, 2024 Entered By: DARLIN BALDWIN Comment: 04/15/24 A1c 8.6 [facility] Diabetic peripheral neuropathy Active Condition Apr 17, 2024 Entered By: DARLIN BALDWIN Comment: mild, intermittent [facility] Essential hypertension Active Condition [place] Essential tremor Active Condition [facility] Exposure to potentially hazardous substance ([facility] [id number]) Active Condition Jul 11 Entered By: JOYCE [...] Gastroesophageal reflux disease with esophagitis Active Condition [facility] History of surgery Active Condition J an 2024 Entered By: DARLIN BALDWIN Comment: left thumb ligament tear repair 1999 [place] - Iron deficiency anemia Active Condition [...] 2024 Entered By: DARLIN BALDWIN Comment: Agent Pershing [place] Myopic macular degeneration Active Condition [place] Nonproliferative diabetic retinopathy Active Condition [place] Osteoarthritis of right knee joint Active Condition [facility] Screening for malignant neoplasm of colon done Active Condition Apr 17, 2024 Entered By: DARLIN BALDWIN Comment: colo about 2008; normal; Apr 05, 2021 Entered By: LUDA OLEARY Comment: 01-23-2021 [facility] Valero tubular adenoma no dysplagia, no return [place] Food insecurity Inactive Condition 05/21/2024 [facility] Onychomycosis of toenails Inactive Condition 04/17/2024 [facility] Diagnosis: ICD-10-CM S61.451A Open bite of right hand, initial encounter Active Diagnosis [place] Diagnosis: ICD-10-CM Z87.891 Personal history of nicotine dependence Active Diagnosis [facility] Diagnosis: ICD-10-CM H54.8 Legal blindness, as defined in [place] Active Diagnosis [facility] Diagnosis: ICD-10-CM E11.9 Type 2 diabetes mellitus without complications Active Diagnosis [place] Diagnosis: ICD-10-CM E11.22 Type 2 diabetes mellitus w diabetic chronic kidney disease Active Diagnosis [facility] Diagnosis: ICD-10-CM L60.3 Nail dystrophy Active Diagnosis [facility] Diagnosis: ICD-10-CM D50.9 Iron deficiency anemia, unspecified Active Diagnosis [place] Diagnosis: ICD-10-CM Z46.0 Encounter for fit/adjst of spectacles and contact lenses Active Diagnosis [facility] [place] Diagnosis: ICD-10-CM G25.0 Essential tremor Active Diagnosis [facility] Diagnosis: ICD-10-CM E11.3299 Type 2 diab with mild nonp rtnop without macular edema, unsp Active Diagnosis [place] Diagnosis: ICD-10-CM N18.9 Chronic kidney disease, unspecified Active Diagnosis [place] Diagnosis: ICD-10-CM Z46.1 Encounter for fitting and adjustment of hearing aid Active Diagnosis [facility] Diagnosis: ICD-10-CM H90.3 Sensorineural hearing loss, bilateral Active Diagnosis [facility] Diagnosis: ICD-10-CM I10 Essential (primary) hypertension Active Diagnosis [place] Diagnosis: ICD-10-CM E11.40 Type 2 diabetes mellitus with diabetic neuropathy, unsp Active Diagnosis [facility] Medications Combined list of outpatient [...] 2 DIABETES MELLITUS ORAL DISCONT INUED 05/06/2024 [id number] 4 GASPAR,AL ICE 2023 90 [facility] AMLODIPINE BESYLATE 5MG TAB TAKE ONE TABLET BY MOUTH ONCE DAILY FOR BLOOD PRESSURE /HEART, DO NOT TAKE WITH GRAPEFRU IT JUICE ORAL ACTIVE 07/25/2025 [id number] 5 TRESSA BOND 2024 60 [facility] [place] AMLODIPINE BESYLATE 5MG TAB TAKE ONE TABLET BY MOUTH ONCE DAILY FOR BLOOD PRESSURE /HEART, DO NOT TAKE WITH GRAPEFRU IT JUICE ORAL DISCONT INUED 01/29/2025 [id number] 5 MARIELLE AGUILA F 2023 60 [facility] IELD AMLODIPINE BESYLATE 5MG TAB TAKE ONE TABLET BY MOUTH ONCE DAILY FOR BLOOD PRESSURE /HEART, DO NOT TAKE WITH GRAPEFRU IT JUICE ORAL DISCONT INUED 05/06/2024 [id number] 4 GASPAR,AL ICE 2023 90 [facility] [place] [facility] AMOXICILLIN TRIHYDRATE 875MG/CLAVU LANATE K 125MG TAB TAKE 1 TABLET BY MOUTH TWICE DAILY FOR INFECTIO N ORAL ACTIVE 09/13/2024 [id number] 5 TRESSA BOND 2024 20 [facility] ATORVASTATI N CA 80MG TAB TAKE ONE TABLET BY MOUTH DAY FOR CHOLESTE ROL ORAL ACTIVE 09/01/2024 [id number] 5 GASPAR,AL ICE 2023 90 [facility] AZITHROMYCI N 250MG TAB TAKE TWO TABLETS BY MOUTH EVERY 24 HOURS ORAL 07/21/2024 [id number] 5 CHELO VERONICA BOYD 2024 6 [place] AZITHROMYCI N 500MG TAB TAKE ONE TABLET BY MOUTH EVERY 24 HOURS ORAL DISCONT INUED (EDIT) 07/20/2024 [id number] 5 CHELO VERONICA BOYD 2024 3 [place] CEFUROXIME AXETIL 500MG TAB TAKE ONE TABLET BY MOUTH EVERY 12 HOURS ORAL 07/20/2024 [id number] 5 CHELO VERONICA HAISina 2024 14 [place] CHOLECALCIF THERESA 25MCG (1,000UNIT) TAB TAKE ONE TABLET BY MOUTH ONCE DAILY FOR VITAMIN SUPPLEME NTATION ORAL ACTIVE 08/16/2025 [id number] 5 TRESSA BOND 2024 90 [place] DULOXETINE HCL 20MG CAP,EC TAKE ONE CAPSULE BY MOUTH ONCE DAILY FOR NERVE PAIN ORAL DISCONT INUED BY PROVIDE R 09/01/2024 [id number] 4 GASPAR,AL ICE 2023 90 [facility] [place] [facility] DULOXETINE HCL 20MG CAP,EC TAKE ONE CAPSULE BY MOUTH ONCE DAILY FOR NERVE PAIN ORAL DISCONT INUED 05/23/2024 [id number] 4 GASPAR,AL ICE 2023 90 [facility] EMPAGLIFLOZ IN 25MG TAB TAKE ONE TABLET BY MOUTH ONCE DAILY FOR TYPE 2 DIABETES MELLITUS ORAL ACTIVE 09/01/2024 [id number] 5 GASPAR,AL ICE 2023 90 [facility] [place] EZETIMIBE 10MG TAB TAKE ONE TABLET BY MOUTH ONCE DAILY TO LOWER CHOLESTE ROL ORAL ACTIVE 04/18/2025 [id number] 5 Gage BALDWIN 2024 90 [place] EZETIMIBE 10MG TAB TAKE ONE TABLET BY MOUTH ONCE DAILY TO LOWER CHOLESTE ROL ORAL DISCONT INUED 09/01/2024 [id number] 4 GASPAR,AL ICE 2023 90 [facility] EZETIMIBE 10MG TAB TAKE ONE TABLET BY MOUTH ONCE DAILY TO LOWER CHOLESTE ROL ORAL DISCONT INUED 05/19/2024 [id number] 4 GASPAR,AL ICE 2023 90 [facility] FERROUS SO4 325MG TAB TAKE ONE TABLET BY MOUTH ONCE DAILY TO SUPPLEME NT IRON ORAL ACTIVE 02/02/2025 [id number] 5 Gage BALDWIN 2023 100 [place] FERROUS SO4 325MG TAB TAKE ONE TABLET BY MOUTH ONCE DAILY TO SUPPLEME NT IRON ORAL DISCONT INUED 12/08/2023 [id number] GONSALO ESPINOZA 2022 100 [facility] FLUTICASONE PROPIONATE 50MCG/SPRAY SOLN,NASAL, 16GM INSTILL 1 SPRAY TOPICALL Y EVERY 10 DAYS TO PREVENT IRRITATI ON FROM SENSOR TOPICA L ACTIVE 09/01/2024 [id number] 4 GASPAR,AL ICE 2023 1 [facility] GABAPENTIN 300MG CAP TAKE ONE CAPSULE BY MOUTH THREE TIMES A DAY FOR NERVE PAIN CHANGE FROM TABLETS ORAL ACTIVE 09/01/2024 [id number] 5 GASPAR,AL ICE 2023 270 [facility] GABAPENTIN 300MG CAP TAKE ONE CAPSULE BY MOUTH THREE TIMES A DAY FOR NERVE PAIN CHANGE FROM TABLETS ORAL DISCONT INUED 05/23/2024 [id number] 4 GASPAR,AL ICE 2023 270 [facility] GLUCOSE 4GM TAB,CHEW CHEW FOUR TABLETS BY MOUTH ONE TIME NEEDED FOR LOW BLOOD SUGAR ORAL ACTIVE 09/01/2024 [id number] 4 GASPAR,AL ICE 2023 30 [facility] INSULIN,ASP ART,HUMAN (EQV-NOVOLO G) 100 UNIT/ML,FLE XPEN,3ML INJECT 4 UNITS SUBCUTAN EOUSLY EVERY MORNING AND INJECT 3 UNITS EVERY EVENING BEFORE SUPPER FOR DIABETES SUBCUT ANEOUS DISCONT INUED BY PROVIDE R 09/01/2024 [id number] 4 GASPAR,AL ICE 2023 5 [facility] INSULIN,ASP ART,HUMAN (EQV-NOVOLO G) 100 UNIT/ML,FLE XPEN,3ML INJECT 3 UNITS SUBCUTAN EOUSLY EVERY MORNING AND INJECT 2 UNITS EVERY EVENING BEFORE SUPPER SUBCUT ANEOUS DISCONT INUED (EDIT) 05/19/2024 [id number] 4 GASPAR,AL ICE 2023 5 [facility] INSULIN,GLA RGINE,HUMAN 100 UNIT/ML INJ,SOLOSTA R,3ML INJECT 8 UNITS SUBCUTAN EOUSLY ONCE DAILY FOR DIABETES SUBCUT ANEOUS ACTIVE 07/10/2025 [id number] 5 SCHUYLER HARRIS 2024 5 [place] INSULIN,GLA RGINE-YFGN 100UNIT/ML INJ PEN,3ML INJECT 6 UNITS SUBCUTAN EOUSLY ONCE DAILY FOR DIABETES SUBCUT ANEOUS DISCONT INUED BY PROVIDE R 12/05/2024 [id number] 4 SCHUYLER HARRIS 2023 5 [place] INSULIN,GLA RGINE-YFGN 100UNIT/ML INJ PEN,3ML INJECT 3 UNITS SUBCUTAN EOUSLY ONCE DAILY FOR DIABETES SUBCUT ANEOUS DISCONT INUED (EDIT) 09/01/2024 [id number] 4 GASPAR,AL ICE 2023 5 [facility] INSULIN,GLA RGINE-YFGN 100UNIT/ML INJ PEN,3ML INJECT 3 UNITS SUBCUTAN EOUSLY ONCE DAILY FOR DIABETES SUBCUT ANEOUS DISCONT INUED 05/19/2024 [id number] 4 GASPAR,AL ICE 2023 5 [facility] LISINOPRIL 10MG TAB TAKE ONE TABLET BY MOUTH ONCE DAILY TO CONTROL BLOOD PRESSURE ORAL ACTIVE 06/27/2025 [id number] 5 TRESSA BOND 2024 90 [facility] IELD LISINOPRIL 20MG TAB TAKE ONE TABLET BY MOUTH ONCE DAILY TO CONTROL BLOOD PRESSURE ORAL DISCONT INUED (EDIT) 09/01/2024 [id number] 5 GASPAR,AL ICE 2023 90 [facility] LISINOPRIL 20MG TAB TAKE ONE TABLET BY MOUTH ONCE DAILY TO CONTROL BLOOD PRESSURE ORAL DISCONT INUED 05/19/2024 [id number] 4 GASPAR,AL ICE 2023 90 [facility] MAGNESIUM OXIDE 250MG TAB TAKE ONE TABLET BY MOUTH ONCE DAILY ORAL DISCONT INUED (EDIT) 10/02/2024 [id number] 4 MARIELLE AGUILA RMEN F 2023 90 [place] MAGNESIUM OXIDE 250MG TAB TAKE ONE TABLET BY MOUTH ONCE DAILY ORAL DISCONT INUED 05/19/2024 [id number] 4 GASPAR,AL ICE 2023 90 [facility] MAGNESIUM OXIDE 400MG TAB TAKE ONE TABLET BY MOUTH TWICE DAILY ORAL ACTIVE 06/27/2025 [id number] 5 TRESSA BOND 2024 180 [place] MAGNESIUM OXIDE 400MG TAB TAKE ONE TABLET BY MOUTH TWICE DAILY ORAL DISCONT INUED 07/20/2024 [id number] 5 CHELO VERONICA HCHAIN 2024 14 [place] OMEPRAZOLE 20MG CAP,EC TAKE ONE CAPSULE BY MOUTH EVERY MORNING 30 MINUTES BEFORE BREAKFAS T ORAL ACTIVE 04/18/2025 [id number] 5 Gage BALDWIN 2024 90 [place] OMEPRAZOLE 20MG CAP,EC TAKE ONE CAPSULE BY MOUTH EVERY MORNING 30 MINUTES BEFORE BREAKFAS T ORAL DISCONT INUED 02/14/2025 [id number] 4 SCHUYLER HARRIS 2023 90 [place] OMEPRAZOLE 20MG CAP,EC TAKE ONE CAPSULE BY MOUTH EVERY MORNING 30 MINUTES BEFORE BREAKFAS T ORAL DISCONT INUED 05/17/2024 [id number] 4 MARIELLE AGUILA F 2023 90 [facility] IELD PRIMIDONE 50MG TAB TAKE ONE TABLET BY MOUTH AT BEDTIME TREMOR ORAL ACTIVE 04/06/2025 [id number] 5 Gage BALDWIN 2024 90 [facility] IELD PRIMIDONE 50MG TAB TAKE ONE TABLET BY MOUTH AT BEDTIME TREMOR ORAL DISCONT INUED 03/10/2024 [id number] SUKUMAR CAR 2022 90 [facility] SITAGLIPTIN (EQV-ZITUVI O) 100MG TAB TAKE ONE TABLET BY MOUTH ONCE DAILY DIABETES ORAL ACTIVE 03/20/2025 [id number] 5 GASPAR,AL ICE 2023 90 [facility] TAMSULOSIN HCL 0.4MG CAP TAKE ONE CAPSULE BY MOUTH AT BEDTIME ORAL ACTIVE 08/19/2024 [id number] 5 CHELO VERONICA HCBOYD 2024 60 [place] Immunizations Combined list of available immunizations from the Department of Defense and Veterans Affairs facilities. 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 Comments Source INFLUENZA, HIGH-DOSE, TRIVALENT, PF 10/28/ 2024 ALBERTOSARA PINEDA Maicol Heller RIGHT DELTO ID [id number] 135 complet ed [facility] INFLUENZA, HIGH-DOSE, QUADRIVALENT 2022 LALA STRONG RIGHT DELTO ID [id number] 197 complet ed [facility] INFLUENZA, INJECTABLE, QUADRIVALENT, PRESERVATIVE FREE 2021 150 complet ed [place] ZOSTER RECOMBINANT 2 2020 187 complet ed [place] COVID-19 (MODERNA), MRNA, LNP-S, PF, 100 MCG OR 50 MCG DOSE 3 2020 207 complet ed MOD; [id number]; 2 [place] INFLUENZA VACCINE, QUADRIVALENT, ADJUVANTED [...] FLU,3 YRS (HISTORICAL) 2013 [facility] Results Combined [...] Jul 04, 2024 10:36 AM Reporting Lab: [facility] [address] [facility] [address] Performing Lab: [facility] [place] [address] [address] [facility] CBC AND DIFF (AUTO) LEUKOCYTES [#/VOLUME] IN BLOOD BY AUTOMATED COUNT 10.23 10*3/u L 4.50 - 11.00 07/17 Specimen Type: BLOOD No comment entered. Ordering Provider: LOUIE BOND Report Released Date/Time: Jul 04, 2024 10:36 AM Reporting Lab: [facility] [facility] [address] [facility] [address] Performing Lab: [facility] [place] [facility] [address] [facility] [address] [facility] CBC AND DIFF (AUTO) ERYTHROCYTE S [#/VOLUME] IN BLOOD BY AUTOMATED COUNT 3.66 10*6/u L 4.23 - 5.66 07/17 L Specimen Type: BLOOD No comment entered. Ordering Provider: LOUIE BOND Report Released Date/Time: Jul 04, 2024 10:36 AM Reporting Lab: [facility] [place] [facility] [address] [facility] [address] Performing Lab: [facility] [place] [address] [address] [facility] CBC AND DIFF (AUTO) HEMOGLOBIN [MASS/VOLUM E] IN BLOOD 11.6 g/dL 12.8 - 17 07/17 L Specimen Type: BLOOD No comment entered. Ordering Provider: LOUIE BOND Report Released Date/Time: Jul 04, 2024 10:36 AM Reporting Lab: [facility] [place] [address] [facility] [address] Performing Lab: [facility] [place] [facility] [address] [facility] [address] [facility] [facility] CBC AND DIFF (AUTO) HEMATOCRIT [VOLUME FRACTION] OF BLOOD BY AUTOMATED COUNT 34.4 39.2 - 50.4 07/17 L Specimen Type: BLOOD No comment entered. Ordering Provider: LOUIE BOND Report Released Date/Time: Jul 04, 2024 10:36 AM Reporting Lab: [facility] [place] [address] [facility] [address] Performing Lab: [facility] [place] [facility] [address] [facility] [address] [facility] CBC AND DIFF (AUTO) MCV [ENTITIC VOLUME] BY AUTOMATED COUNT 94.0 fL 82 - 99 07/17 Specimen Type: BLOOD No comment entered. Ordering Provider: LOUIE BOND Report Released Date/Time: Jul 04, 2024 10:36 AM Reporting Lab: [facility] [address] [facility] [address] Performing Lab: [facility] [address] [facility] [address] [facility] CBC AND DIFF (AUTO) MCHC [MASS/VOLUM E] BY AUTOMATED COUNT 33.7 g/dL 30.8 - 35.1 07/17 Specimen Type: BLOOD No comment entered. Ordering Provider: LOUIE BOND Report Released Date/Time: Jul 04, 2024 10:36 AM Reporting Lab: [facility] [place] [address] [facility] [address] Performing Lab: [facility] [place] [facility] [address] [facility] [address] [facility] CBC AND DIFF (AUTO) PLATELETS [#/VOLUME] IN BLOOD BY AUTOMATED COUNT 292 10*3/u L 140 - 360 07/17 Specimen Type: BLOOD No comment entered. Ordering Provider: LOUIE BOND Report Released Date/Time: Jul 04, 2024 10:36 AM Reporting Lab: [facility] [address] [facility] [address] Performing Lab: [facility] [place] [facility] [address] [facility] [address] [facility] CBC AND DIFF (AUTO) PLATELET MEAN VOLUME [ENTITIC VOLUME] IN BLOOD BY AUTOMATED COUNT 9.4 fL 9.2 - 12.4 07/17 Specimen Type: BLOOD No comment entered. Ordering Provider: LOUIE BOND Report Released Date/Time: Jul 04, 2024 10:36 AM Reporting Lab: [facility] [place] [address] [facility] [address] Performing Lab: [facility] [place] [facility] [address] [facility] [address] [facility] CBC AND DIFF (AUTO) ERYTHROCYTE DISTRIBUTIO N WIDTH [RATIO] BY AUTOMATED COUNT 13.5 12.0 - 16.0 07/17 Specimen Type: BLOOD No comment entered. Ordering Provider: LOUIE BOND Report Released Date/Time: Jul 04, 2024 10:36 AM Reporting Lab: [facility] [place] [address] [facility] [address] Performing Lab: [facility] [place] [facility] [address] [facility] [address] [facility] CBC AND DIFF (AUTO) MONOCYTES [#/VOLUME] IN BLOOD BY AUTOMATED COUNT 0.84 10*3/u L 0.30 - 1.10 07/17 Specimen Type: BLOOD No comment entered. Ordering Provider: LOUIE BOND Report Released Date/Time: Jul 04, 2024 10:36 AM Reporting Lab: [facility] [address] [facility] [address] Performing Lab: [facility] [address] [facility] [address] [facility] CBC AND DIFF (AUTO) MCH [ENTITIC MASS] BY AUTOMATED COUNT 31.7 pg 26.2 - 32.6 07/17 Specimen Type: BLOOD No comment entered. Ordering Provider: LOUIE BOND Report Released Date/Time: Jul 04, 2024 10:36 AM Reporting Lab: [facility] [address] [facility] [address] Performing Lab: [facility] [address] [facility] [address] [facility] CBC AND DIFF (AUTO) NEUTROPHILS /100 LEUKOCYTES IN BLOOD BY AUTOMATED COUNT 70.1 43.7 - 75.8 07/17 Specimen Type: BLOOD No comment entered. Ordering Provider: LOUIE BOND Report Released Date/Time: Jul 04, 2024 10:36 AM Reporting Lab: [facility] [address] [facility] [address] Performing Lab: [facility] [address] [facility] [address] [facility] CBC AND DIFF (AUTO) LYMPHOCYTES /100 LEUKOCYTES IN BLOOD BY AUTOMATED COUNT 17.3 14.0 - 42.3 07/17 Specimen Type: BLOOD No comment entered. Ordering Provider: LOUIE BOND Report Released Date/Time: Jul 04, 2024 10:36 AM Reporting Lab: [facility] [address] [facility] [address] Performing Lab: [facility] [address] [facility] [address] [facility] CBC AND DIFF (AUTO) MONOCYTES/1 00 LEUKOCYTES IN BLOOD BY AUTOMATED COUNT 8.2 5.1 - 13.7 07/17 Specimen Type: BLOOD No comment entered. Ordering Provider: LOUIE BOND Report Released Date/Time: Jul 04, 2024 10:36 AM Reporting Lab: [facility] [place] [facility] [address] [facility] [address] Performing Lab: [facility] [place] [facility] [address] [facility] [address] [facility] CBC AND DIFF (AUTO) EOSINOPHILS /100 LEUKOCYTES IN BLOOD BY AUTOMATED COUNT 2.9 0.4 - 6.8 07/17 Specimen Type: BLOOD No comment entered. Ordering Provider: LOUIE BOND Report Released Date/Time: Jul 04, 2024 10:36 AM Reporting Lab: [facility] [place] [address] [address] Performing Lab: [facility] [place] [facility] [address] [facility] [address] [facility] CBC AND DIFF (AUTO) BASOPHILS/1 00 LEUKOCYTES IN BLOOD BY AUTOMATED COUNT 1.0 0.1 - 2.0 07/17 Specimen Type: BLOOD No comment entered. Ordering Provider: LOUIE BOND Report Released Date/Time: Jul 04, 2024 10:36 AM Reporting Lab: [facility] [place] [address] [address] Performing Lab: [facility] [place] [address] [address] [facility] CBC AND DIFF (AUTO) NEUTROPHILS [#/VOLUME] IN BLOOD BY AUTOMATED COUNT 7.17 10*3/u L 2.20 - 7.60 07/17 Specimen Type: BLOOD No comment entered. Ordering Provider: LOUIE BOND Report Released Date/Time: Jul 04, 2024 10:36 AM Reporting Lab: [facility] [place] [address] [address] Performing Lab: [facility] [place] [address] [address] [facility] CBC AND DIFF (AUTO) LYMPHOCYTES [#/VOLUME] IN BLOOD BY AUTOMATED COUNT 1.77 10*3/u L 1.00 - 3.20 07/17 Specimen Type: BLOOD No comment entered. Ordering Provider: LOUIE BOND Report Released Date/Time: Jul 04, 2024 10:36 AM Reporting Lab: [facility] [place] [address] [facility] [address] Performing Lab: [facility] [place] [facility] [address] [facility] [address] [facility] CBC AND DIFF (AUTO) EOSINOPHILS [#/VOLUME] IN BLOOD BY AUTOMATED COUNT 0.30 10*3/u L 0.03 - 0.44 07/17 Specimen Type: BLOOD No comment entered. Ordering Provider: LOUIE BOND Report Released Date/Time: Jul 04, 2024 10:36 AM Reporting Lab: [facility] [place] [address] [address] Performing Lab[facility] [place] [address] [address] [facility] CBC AND DIFF (AUTO) BASOPHILS [#/VOLUME] IN BLOOD BY AUTOMATED COUNT 0.10 10*3/u L 0.01 - 0.13 07/17 Specimen Type: BLOOD No comment entered. Ordering Provider: LOUIE BOND Report Released Date/Time: Jul 04, 2024 10:36 AM Reporting Lab: [facility] [place] [address] [address] Performing Lab: [facility] [place] [address] [address] [facility] CBC AND DIFF (AUTO) IMMATURE GRANULOCYTE S/100 LEUKOCYTES IN BLOOD BY AUTOMATED COUNT 0.5 0.0 - 0.7 07/17 Specimen Type: BLOOD No comment entered. Ordering Provider: LOUIE BOND Report Released Date/Time: Jul 04, 2024 10:36 AM Reporting Lab: [facility] [place] [facility] [address] [facility] [address] Performing Lab: [facility] [place] [facility] [address] [facility] [address] [facility] CBC AND DIFF (AUTO) IMMATURE GRANULOCYTE S [#/VOLUME] IN BLOOD BY AUTOMATED COUNT 0.05 10*3/u L 0.00 - 0.06 07/17 Specimen Type: BLOOD No comment entered. Ordering Provider: LOUIE BOND Report Released Date/Time: Jul 04, 2024 10:36 AM Reporting Lab: [facility] [place] [facility] [address] [facility] [address] Performing Lab[facility] [place] [facility] [address] [facility] [address] [facility] CBC AND DIFF (AUTO) NUCLEATED ERYTHROCYTE S/100 LEUKOCYTES [RATIO] IN BLOOD BY AUTOMATED COUNT 0.0 0.0 - 0.0 07/17 Specimen Type: BLOOD No comment entered. Ordering Provider: LOUIE BOND Report Released Date/Time: Jul 04, 2024 10:36 AM Reporting Lab: [facility] [place] [facility] [address] [facility] [address] Performing Lab: [facility] [place] [facility] [address] [facility] [address] [facility] CBC AND DIFF (AUTO) NUCLEATED ERYTHROCYTE S [#/VOLUME] IN BLOOD BY AUTOMATED COUNT 0.00 10*3/u L 0.00 - 0.00 07/17 Specimen Type: BLOOD No comment entered. Ordering Provider: LOUIE BODN Report Released Date/Time: Jul 04, 2024 10:36 AM Reporting Lab: [facility] [address] [facility] [address] Performing Lab: [facility] [address] [facility] [address] [facility] MAGNESIUM MAGNESIUM [MASS/VOLUM E] IN SERUM OR PLASMA 1.5 mg/dL 1.6 - 2.6 07/17 L Specimen Type: SERUM No comment entered. Ordering Provider: ROXANA BALDWIN Report Released Date/Time: May 21, 2024 08:43 AM Reporting Lab: [address] [address] Performing Lab: [address] [address] [place] VITAMIN D (25-OH) 25-HYDROXYV ITAMIN D3+25-HYDRO XYVITAMIN D2 [MASS/VOLUM E] IN SERUM OR PLASMA 13.6 ng/mL 20 - 50 07/17 L Specimen Type: SERUM No comment entered. Ordering Provider: ROXANA BALDWIN Report Released Date/Time: May 21, 2024 08:43 AM Reporting Lab: [address] [address] Performing Lab: [address] [address] [place] IRON & TIBC PANEL IRON BINDING CAPACITY [MASS/VOLUM E] IN SERUM OR PLASMA 268 ug/dL 204 - 475 07/17 Specimen Type: SERUM No comment entered. Ordering Provider: ROXANA BALDWIN Report Released Date/Time: May 21, 2024 08:43 AM Reporting Lab: [address] [address] Performing Lab: [address] [address] [place] IRON & TIBC PANEL IRON [MASS/VOLUM E] IN SERUM OR PLASMA 76 ug/dL 65 - 175 07/17 Specimen Type: SERUM No comment entered. Ordering Provider: ROXANA BALDWIN Report Released Date/Time: May 21, 2024 08:43 AM Reporting Lab: [address] [address] Performing Lab: [address] [address] [place] IRON & TIBC PANEL IRON/IRON BINDING CAPACITY.TO JOSE G [MASS RATIO] IN SERUM OR PLASMA 28.4 15 - 45 07/17 Specimen Type: SERUM No comment entered. Ordering Provider: ROXANA BALDWIN Report Released Date/Time: May 21, 2024 08:43 AM Reporting Lab: [address] [address] Performing Lab: [address] [address] [place] IRON & TIBC PANEL TRANSFERRIN [MASS/VOLUM E] IN SERUM OR PLASMA 203 mg/dL 180 - 382 07/17 Specimen Type: SERUM No comment entered. Ordering Provider: ROXANA BALDWIN Report Released Date/Time: May 21, 2024 08:43 AM Reporting Lab: [address] [address] Performing Lab: [address] [address] [place] HEMOGLOBI N A1C PANEL HEMOGLOBIN A1C/HEMOGLO BIN.TOTAL [...] 21, 2024 08:43 AM Reporting Lab: [address] [address] Performing Lab: [address] [address] [place] TSH THYROTROPIN [UNITS/VOLU ME] IN SERUM OR PLASMA BY DETECTION LIMIT <= 0.005 MIU/L 1.19 u[IU]/ mL 0.35 - 4.94 07/17 Specimen Type: SERUM No comment entered. Ordering Provider: ROXANA BALDWIN Report Released Date/Time: May 21, 2024 08:43 AM Reporting Lab: [facility] [address] [address] Performing Lab: [facility] [address] [address] [place] BASIC METABOLIC PANEL (fasting) UREA NITROGEN [MASS/VOLUM E] IN SERUM OR PLASMA 22 mg/dL 8 - 26 07/17 Specimen Type: SERUM No comment entered. Ordering Provider: ROXANA BALDWIN Report Released Date/Time: May 21, 2024 08:43 AM Reporting Lab: [address] [address] Performing Lab: [address] [address] [place] BASIC METABOLIC PANEL (fasting) GLUCOSE [MASS/VOLUM E] IN SERUM OR PLASMA 114 mg/dL 65 - 100 07/17 H Specimen Type: SERUM No comment entered. Ordering Provider: ROXANA BALDWIN Report Released Date/Time: May 21, 2024 08:43 AM Reporting Lab: [address] [address] Performing Lab: [address] [address] [place] BASIC METABOLIC PANEL (fasting) SODIUM [MOLES/VOLU ME] IN SERUM OR PLASMA 132 mmol/L 136 - 145 07/17 L Specimen Type: SERUM No comment entered. Ordering Provider: ROXANA BALDWIN Report Released Date/Time: May 21, 2024 08:43 AM Reporting Lab: [address] [address] Performing Lab: [facility] [address] [address] [place] BASIC METABOLIC PANEL (fasting) POTASSIUM [MOLES/VOLU ME] IN SERUM OR PLASMA 4.8 mmol/L 3.5 - 5.1 07/17 Specimen Type: SERUM No comment entered. Ordering Provider: ROXANA BALDWIN Report Released Date/Time: May 21, 2024 08:43 AM Reporting Lab: [facility] [address] [facility] [address] Performing Lab: [facility] [address] [facility] [address] [place] BASIC METABOLIC PANEL (fasting) CHLORIDE [MOLES/VOLU ME] IN SERUM OR PLASMA 100 mmol/L 98 - 107 07/17 Specimen Type: SERUM No comment entered. Ordering Provider: ROXANA BALDWIN Report Released Date/Time: May 21, 2024 08:43 AM Reporting Lab: [facility] [address] [address] Performing Lab: [facility] [address] [address] [place] BASIC METABOLIC PANEL (fasting) CARBON DIOXIDE, TOTAL [MOLES/VOLU ME] IN SERUM OR PLASMA 25 meq/L 23 - 31 07/17 Specimen Type: SERUM No comment entered. Ordering Provider: ROXANA BALDWIN Report Released Date/Time: May 21, 2024 08:43 AM Reporting Lab: [facility] [address] [address] Performing Lab: [facility] [address] [address] [place] BASIC METABOLIC PANEL (fasting) CALCIUM [MASS/VOLUM E] IN SERUM OR PLASMA 9.1 mg/dL 8.8 - 10 07/17 Specimen Type: SERUM No comment entered. Ordering Provider: ROXANA BALDWIN Report Released Date/Time: May 21, 2024 08:43 AM Reporting Lab: [facility] [address] [address] Performing Lab: [facility] [address] [address] [place] BASIC METABOLIC PANEL (fasting) CREATININE [MASS/VOLUM E] IN SERUM OR PLASMA 1.06 mg/dL 0.72 - 1.25 07/17 Specimen Type: SERUM No comment entered. Ordering Provider: ROXANA BALDWIN Report Released Date/Time: May 21, 2024 08:43 AM Reporting Lab: [facility] [address] [address] Performing Lab: [address] [address] [place] BASIC METABOLIC PANEL (fasting) GLOMERULAR FILTRATION RATE/1.73 SQ M.PREDICTED [VOLUME RATE/AREA] IN SERUM, PLASMA OR BLOOD BY CREATININE- BASED FORMULA (CKD-EPI 2020) 73 mL/min 60 07/17 Specimen Type: SERUM No comment entered. Ordering Provider: ROXANA BALDWIN Report Released Date/Time: May 21, 2024 08:43 AM Reporting Lab: [address] [address] Performing Lab: [address] [address] [place] LIPID PANEL FASTING CHOLESTEROL [MASS/VOLUM E] IN SERUM OR PLASMA 157 mg/dL 07/17 Specimen Type: SERUM No comment entered. Ordering Provider: ROXANA BALDWIN Report Released Date/Time: May 21, 2024 08:43 AM Reporting Lab: [address] [address] Performing Lab: [address] [address] [place] LIPID PANEL FASTING TRIGLYCERID E [MASS/VOLUM E] IN SERUM OR PLASMA 74 mg/dL 0 - 150 07/17 Specimen Type: SERUM No comment entered. Ordering Provider: ROXANA BALDWIN Report Released Date/Time: May 21, 2024 08:43 AM Reporting Lab: [facility] [address] [address] Performing Lab: [address] [address] [place] LIPID PANEL FASTING CHOLESTEROL IN LDL [MASS/VOLUM E] IN SERUM OR PLASMA BY CALCULATION 73 mg/dL 0 - 129 07/17 Specimen Type: SERUM No comment entered. Ordering Provider: ROXANA BALDWIN Report Released Date/Time: May 21, 2024 08:43 AM Reporting Lab: [facility] [address] [address] Performing Lab: [facility] [address] [address] [place] LIPID PANEL FASTING CHOLESTEROL .TOTAL/CHOL ESTEROL IN HDL [MASS RATIO] IN SERUM OR PLASMA 2.3 07/17 Specimen Type: SERUM No comment entered. Ordering Provider: ROXANA BALDWIN Report Released Date/Time: May 21, 2024 08:43 AM Reporting Lab: [address] [address] Performing Lab: [address] [address] [place] LIPID PANEL FASTING CHOLESTEROL IN HDL [MASS/VOLUM E] IN SERUM OR PLASMA 69 mg/dL 40 07/17 Specimen Type: SERUM No comment entered. Ordering Provider: ROXANA BALDWIN Report Released Date/Time: May 21, 2024 08:43 AM Reporting Lab: [address] [address] Performing Lab: [facility] [address] [address] [place] LIVER FUNCTION PROTEIN [MASS/VOLUM E] IN SERUM OR PLASMA 7.5 g/dL 6.4 - 8.3 07/17 Specimen Type: SERUM No comment entered. Ordering Provider: ROXANA BALDWIN Report Released Date/Time: May 21, 2024 08:43 AM Reporting Lab: [address] [address] Performing Lab: [facility] [address] [address] [place] LIVER FUNCTION ALBUMIN [MASS/VOLUM E] IN SERUM OR PLASMA BY BROMOCRESOL PURPLE (BCP) DYE BINDING METHOD 3.4 g/dL 3.2 - 4.6 07/17 Specimen Type: SERUM No comment entered. Ordering Provider: ROXANA BALDWIN Report Released Date/Time: May 21, 2024 08:43 AM Reporting Lab: [facility] [address] [facility] [address] Performing Lab: [facility] [place] [address] [address] [place] LIVER FUNCTION ALKALINE PHOSPHATASE [ENZYMATIC ACTIVITY/VO LUME] IN SERUM OR PLASMA 112 U/L 40 - 150 07/17 Specimen Type: SERUM No comment entered. Ordering Provider: ROXANA BALDWIN Report Released Date/Time: May 21, 2024 08:43 AM Reporting Lab: [facility] [address] [address] Performing Lab: [facility] [address] [address] [place] LIVER FUNCTION ASPARTATE AMINOTRANSF ERASE [ENZYMATIC ACTIVITY/VO LUME] IN SERUM OR PLASMA BY WITH P-5'-P 30 U/L 5 - 34 07/17 Specimen Type: SERUM No comment entered. Ordering Provider: ROXANA BALDWIN Report Released Date/Time: May 21, 2024 08:43 AM Reporting Lab: [facility] [place] [address] [address] Performing Lab: [facility] [place] [address] [address] [place] LIVER FUNCTION ALANINE AMINOTRANSF ERASE [ENZYMATIC ACTIVITY/VO LUME] IN SERUM OR PLASMA BY WITH P-5'-P 15 U/L 07/17 Specimen Type: SERUM No comment entered. Ordering Provider: ROXANA BALDWIN Report Released Date/Time: May 21, 2024 08:43 AM Reporting Lab: [facility] [place] [address] [address] Performing Lab: [facility] [address] [place] LIVER FUNCTION BILIRUBIN.T OTAL [MASS/VOLUM E] IN SERUM OR PLASMA 0.3 mg/dL 0.2 - 1.2 07/17 Specimen Type: SERUM No comment entered. Ordering Provider: ROXANA BALDWIN Report Released Date/Time: May 21, 2024 08:43 AM Reporting Lab: [facility] [address] [facility] [address] Performing Lab: [address] [address] [facility] Vital Signs Combined list of inpatient and outpatient Vital Signs from Department of Defense and Veterans Affairs, ranging from 12 months to all on record, depending upon the facility. Vital Sign Value Date Comments Source SYSTOLIC BLOOD PRESSURE 129 08/16/2024 10:33:23 [place] DIASTOLIC BLOOD PRESSURE 67 08/16/2024 10:33:23 [place] PULSE OXIMETRY 97 08/16/2024 10:33:23 [place] PAIN 9 08/16/2024 10:33:23 [place] TEMPERATURE 98.4 08/16/2024 10:33:23 [place] PULSE 100 08/16/2024 10:33:23 [place] RESPIRATION 18 08/16/2024 10:33:23 [facility] SYSTOLIC BLOOD PRESSURE 150 06/26/2024 10:34:28 [place] DIASTOLIC BLOOD PRESSURE 80 06/26/2024 10:34:28 [place] PULSE OXIMETRY 96 06/26/2024 10:34:28 [place] WEIGHT 120 06/26/2024 10:34:28 [place] BMI 20 kg/m2 06/26/2024 10:34:28 [place] PULSE 93 06/26/2024 10:34:28 [facility] SYSTOLIC BLOOD PRESSURE 146 04/17/2024 10:09:34 [place] DIASTOLIC BLOOD PRESSURE 73 04/17/2024 10:09:34 [place] PULSE OXIMETRY 98 04/17/2024 10:09:34 [place] PULSE 94 04/17/2024 10:09:34 [facility] SYSTOLIC BLOOD PRESSURE 146 01/29/2024 10:33:16 [place] DIASTOLIC BLOOD PRESSURE 76 01/29/2024 10:33:16 [place] PULSE OXIMETRY 99 01/29/2024 10:33:16 [place] WEIGHT 121.2 01/29/2024 10:33:16 [place] L[place] BMI 20 kg/m2 01/29/2024 10:33:16 [place] TEMPERATURE 97.6 01/29/2024 10:33:16 [place] PULSE 88 01/29/2024 10:33:16 [place] Encounters Combined list of: 1) Encounters from Department of Veterans Affairs facilities going backup to the last 18 months, not all VA inpatient encounters are included; 2) Encounters from the Department of [facility] facilities going backup to 280 months. Location Location Details Encounter Type Encounter Number Reason For Visit Attending Provider ADM Date DC Date Status Disposition Source [facility] Outpatient Encounter [id number] 03/01 [facility] HLTH BHV IVNTJ GRP EA ADDL [id number] 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, as defined in [place] MICHAEL LENNON 03/10 [facility] Outpatient Encounter [id number] 03/15 [facility] OFFICE O/P EST HI 40-54 MIN [id number] 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, as defined in [place] LISET BAUMAN 03/16 [facility] FIT SPECTACLES MONOFOCAL [id number] Diagnos is: ICD-10- CM Z46.0 Encount er for fit/adj st of spectac les and contact lenses LISET BAUMAN 03/16 [facility] Outpatient Encounter [id number] 04/11 [facility] HLTH BHV IVNTJ GRP EA ADDL [id number] 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, as defined in [facility] MICHAEL LENNON M 04/14 [facility] HC PRO PHONE CALL 21-30 MIN [id number] 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, as defined in [facility] 04/18 [facility] [place] OFFICE O/P EST LOW 20 MIN [id number] Diagnos is: ICD-10- CM L60.3 Nail dystrop hy JEANETTE GALVAN ES F 04/20 [place] [facility] HLTH BHV IVNTJ GRP EA ADDL [id number] 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, as defined in [facility] T 04/28 [facility] Out[facility] Encounter [id number] 04/28 [facility] SENSORY INTEGRATIO N [id number] 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, as defined in [facility]01 [facility] Out[facility] Encounter [id number] 05/05 [facility] Encounter [id number] 05/05 [facility] En[facility] [id number] 05/10 [facility] En[facility] [id number] 05/11 [facility] HLTH BHV IVNTJ GRP EA ADDL [id number] 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, [place] defined [place] MICHAEL LENNON 05/12 [facility] Out[facility] En[facility] [id number] 05/15 [facility] OFFICE O/[place] HI 40 MIN [id number] Diagnos is: ICD-10- CM E11.9 Type 2 diabete s mellitu s without complic ations CHER GASPAR 05/19 [facility] [place] (6[facility] QNHP OL DIG ASSMT&MGMT 5-10 [id number] Diagnos is: ICD-10- CM E11.9 Type 2 diabete s mellitu s without complic ations LEONARD MITCHELL 05/19 [facility] En[facility] [id number] 05/21 [facility] En[facility] [id number] Diagnos is: ICD-10- CM E11.40 Type 2 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, unsp CHER GASPAR CE 05/23 [facility] HC PRO PHONE CALL 21-30 MIN [id number] 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, as defined in [facility] CITLALLI,CHR ISTOPHER T 05/23 [facility] Outpatient Encounter [id number] 06/01 [facility] SENSORY INTEGRATIO N [id number] 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, as defined in [facility] 06[facility]01 [facility] CASE MANAGEMENT [id number] 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, as defined in [facility] 06/05 [facility] HLTH BHV IVNTJ GRP EA ADDL [id number] MICHAEL LENNON 06/08 [facility] Outpatient Encounter [id number] 06/08 [facility] HLTH BHV IVNTJ GRP EA ADDL [id number] 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, as defined in [facility] 06/22 [facility] HLTH BHV IVNTJ GRP EA ADDL [id number] 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, as defined in [facility] MICHAEL LENNON M 06/29 [facility] [place] OFFICE O/P EST LOW 20 MIN [id number] Diagnos is: ICD-10- CM L60.3 Nail dystrop hy ROSS,CHARL ES F 07/12 [place] [facility] HLTH BHV IVNTJ GRP EA ADDL [id number] 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, as defined in [facility] MICHAEL LENNON M 07/13 [facility] Out[facility] Encounter [id number] 07/17 [facility] [place] OFFICE O/P EST MOD 30 MIN [id number] Diagnos is: ICD-10- CM I10 Essenti al (primar y) hyperte nsion AYLA,CAR MEN F 07/23 [place] [facility] HLTH BHV IVNTJ GRP EA ADDL [id number] 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, as defined in [place] SANDY LENNON ISTOPHER T 07/27 [facility] HEARING AID EXAM BOTH EARS [id number] Diagnos is: ICD-10- CM H90.3 Sensori neural hearing loss, bilater al Arjun WITT E 07/27 [facility] EXTENDED VISUAL FIELD XM [id number] Diagnos is: ICD-10- CM H54.8 Legal blindne ss, as defined in [facility] LISET BAUMAN 07/27 [facility] FUNDUS PHOTOGRAPH Y W/I&R [id number] Diagnos is: ICD-10- CM H54.8 Legal blindne ss, as defined in [facility] LISET BAUMAN 07/27 [facility] [place] 1 [id number] Diagnos is: ICD-10- CM H54.8 Legal blindne ss, as defined in [facility] LISET BAUMAN 07/27 [facility] HC PRO PHONE CALL 11-20 MIN [id number] Diagnos is: ICD-10- CM H54.8 Legal blindne ss, as defined in [facility] CITLALLI,SANDY ISTOPHER T 08/03 [facility] HEARING SERVICE [id number] Diagnos is: ICD-10- CM Z46.1 Encount er for fitting and adjustm ent of hearing aid FELIX VALERO 08/21 [facility] Outpatient Encounter [id number] Diagnos is: ICD-10- CM E11.9 Type 2 diabete s mellitu s without complic ations ERIC FRANCIS 08/31 [facility] OFFICE O/P EST HI 40 MIN [id number] Diagnos is: ICD-10- CM E11.9 Type 2 diabete s mellitu s without complic ations GASPAR,ALI CE 08/31 [facility] Out[facility] En[facility] [id number] 08/31 [facility] CONT GLUC MNTR ANALYSIS I&R [id number] Diagnos is: ICD-10- CM E11.9 Type 2 diabete s mellitu s without complic ations CHASITYALI CE 08/31 [facility] [place] [place] [facility] (6[facility]GE[facility] QNHP OL DIG ASSMT&MGMT 5-10 [id number] Diagnos is: ICD-10- CM E11.9 Type 2 diabete s mellitu s without complic ations LEONARD MITCHELL 09/03 [facility] (631GE) [facility] IVNTJ GRP EA ADDL [id number] Diagnos is: ICD-10- CM H54.8 Legal blindne ss, as defined in [place] MICHAEL LENNON 09/14 [facility]HV IVNTJ GRP EA ADDL [id number] Diagnos is: ICD-10- CM H54.8 Legal blindne ss, as defined in [place] SANDY LENNON ISTOPHER T 09/21 [facility] En[facility] [id number] 09/25 [facility] En[facility] [id number] 10/18 [facility] [place] O/P EST MOD 30 MIN [id number] Diagnos is: ICD-10- CM L60.3 Nail dystrop hy JEANETTE GALVAN ES F 10/18 [place] [facility] En[facility] [id number] 10/22 [facility] En[facility] [id number] 10/25 [facility] IVNTJ GRP EA ADDL [id number] Diagnos is: ICD-10- CM H54.8 Legal blindne ss, as defined in [facility]26 [facility] IVNTJ GRP EA ADDL [id number] Diagnos is: ICD-10- CM H54.8 Legal blindne ss, as defined in [facility] MICHAEL LENNON 11/09 [facility]HV IVNTJ GRP EA ADDL [id number] Diagnos is: ICD-10- CM H54.8 Legal blindne ss, as defined in [facility] ISTOPHER T 11/23 [facility] [place] MTMS BY PHARM ADDL 15 MIN [id number] Diagnos is: ICD-10- CM E11.9 Type 2 diabete s mellitu s without complic ations TYRON HARRIS 12/04 [facility] [place] DIAB MANAGE TRN PER INDIV [id number] Diagnos is: ICD-10- CM E11.9 Type 2 diabete s mellitu s without complic ations LARISA PEREZ P [facility] [place] MTMS BY PHARM ADDL 15 MIN [id number] Diagnos is: ICD-10- CM E11.9 Type 2 diabete s mellitu s without complic ations KIMBERLY,TYRON IE 12/17 [place] [facility] V IVNTJ GRP EA ADDL [id number] Diagnos is: ICD-10- CM H54.8 Legal blindne ss, as defined in [place] CHRISTIANO MACEDO 12/28 [facility] V IVNTJ GRP EA ADDL [id number] Diagnos is: ICD-10- CM H54.8 Legal blindne ss, as defined in [place] MICHAEL LENNON 01/11 [facility] [place] Outpatient En[place] [id number] 01/21 [place] [facility] HC PRO PHONE CALL 5-10 MIN [id number] Diagnos is: ICD-10- CM H54.8 Legal blindne ss, as defined in [place] MICHAEL LENNON 01/21 [facility] MTMS BY PHARM COMMERCIAL FIELD INSPECTOR 15 MIN [id number] Diagnos is: ICD-10- CM E11.9 Type 2 diabete s mellitu s without complic ations KIMBERLY,TYRON IE 01/23 [place] [facility] En[facility] [id number] 1.01/24 [facility] En[facility] [id number] 1.01/25 [facility] HLTH BHV IVNTJ GRP EA ADDL [id number] Diagnos is: ICD-10- CM H54.8 Legal blindne ss, as defined in [place] SANDY LENNON ISTOPHER T 01/25 [facility] [place] OFFICE O/P EST MOD 30 MIN [id number] Diagnos is: ICD-10- CM N18.9 Chronic kidney disease , unspeci fied ARASH AGUILA F 01/28 [place] [facility] [place] ADMIN [id number] 1. ARASH AGUILA F 01/28 [facility] Outpatient Encounter [id number] MICHAEL LENNON M 02/01 [facility] Outpatient Encounter [id number] 02/01 [facility] MTMS BY PHARM COMMERCIAL FIELD INSPECTOR 15 MIN [id number] Diagnos is: ICD-10- CM E11.9 Type 2 diabete s mellitu s without complic ations TYRON HARRIS IE 02/06 [facility] [place] DIAB MANA[place] TRN PER INDIV 71908-4.63 1BY. 13 Diagnos is: ICD-10- CM E11.9 Type 2 diabete s mellitu s without complic ations LARISA PEREZ P 02/13 [place] [facility] HC PRO PHONE CALL 11-20 MIN [id number] 1. Diagnos is: ICD-10- CM H54.8 Legal blindne ss, as defined in [place] CITLALLI,[facility] ISTOPHER T 02/19 [facility] FIT SPECTACLES MONOFOCAL [id number] Diagnos is: ICD-10- CM Z46.0 Encount er for fit/adj st of spectac les and contact lenses CHER DODSON RAMBO 02/19 [facility] [place] OFF[place] O/P EST LOW 20 MIN [id number] [id number] Diagnos is: ICD-10- CM L60.3 Nail dystrop hy JEANETTE GALVAN ES F 02/21 [place] [facility] GROUP THERAPEUTI C PROCEDURES [id number] 1. Diagnos is: ICD-10- CM H54.8 Legal blindne ss, as defined in [facility] SANDY LENNON ISTOPHER T 02/22 [facility] FALL RISK ASSESSMENT DOCD [id number] 1. Diagnos is: ICD-10- CM H54.8 Legal blindne ss, as defined in [facility] MICHAEL LENNON 02/27 [facility] GROUP THERAPEUTI C PROCEDURES [id number] Diagnos is: ICD-10- CM H54.8 Legal blindne ss, as defined in [facility] MICHAEL LENNON 03/04 [facility] W PT 30 MINUTES [id number] [id number] Diagnos is: ICD-10- CM H54.8 Legal blindne ss, as defined in [place] Sonia BAKER 03/06 [facility] [place] MTMS BY PHARM COMMERCIAL FIELD INSPECTOR 15 MIN [id number] [id number] Diagnos is: ICD-10- CM E11.329 9 Type 2 diab with mild nonp rtnop without macular edema, unsp TYRON HARRIS IE 03/08 [place] Out[place] En[place] [id number] [id number] 12 03/08 [place] [facility] GROUP THERAPEUTI C PROCEDURES [id number] 1. Diagnos is: ICD-10- CM H54.8 Legal blindne ss, as defined in [facility] MICHAEL LENNON 03/15 [facility] [place] QNHP OL DIG ASSMT&MGMT 5-10 69257-6.63 1BY. 46 Diagnos is: ICD-10- CM E11.9 Type 2 diabete s mellitu s without complic ations MAHENDRA EPPS 03/19 [facility] [place] [facility] En[facility] [id number] 03/20 [facility] HC PRO PHONE CALL 21-30 MIN [id number] [id number] Diagnos is: ICD-10- CM H54.8 Legal blindne ss, as defined in [facility] SANDY LENNON ISTOPHER T 03/20 [facility] HC PRO PHONE CALL 11-20 MIN [id number] [id number] Diagnos is: ICD-10- CM H54.8 Legal blindne ss, as defined in [facility] SANDY LENNON ISTOPHER T 03/25 [facility] [place] PSYTX W PT 30 MINUTES [id number] [id number] Diagnos is: ICD-10- CM H54.8 Legal blindne ss, as defined in [facility] Sonia BAKER 04/05 [facility] [place] [facility] GROUP THERAPEUTI C PROCEDURES [id number] Diagnos is: ICD-10- CM H54.8 Legal blindne ss, as defined in [facility] MICHAEL LENNON 04/12 [facility] [place] OFF[place] O/P EST HI 40 MIN [id number] [id number] Diagnos is: ICD-10- CM G25.0 Essenti al candice DENNYJAKY VELAZCO C 04/17 [place] [facility] GROUP THERAPEUTI C PROCEDURES [id number] Diagnos is: ICD-10- CM H54.8 Legal blindne ss, as defined in [facility] [place] [facility] MTMS BY PHARM COMMERCIAL FIELD INSPECTOR 15 MIN [id number] [id number] Diagnos is: ICD-10- CM E11.9 Type 2 diabete s mellitu s without complic ations SCHUYLER HARRISB IE 05/03 [facility] [place] [facility] GROUP THERAPEUTI C PROCEDURES [id number] [id number] Diagnos is: ICD-10- CM H54.8 Legal blindne ss, as defined in [facility] MICHAEL LENNON 05/17 [facility] PH1 ASSMT&MGMT NQHP 11-20 [id number] [id number] Diagnos is: ICD-10- CM H54.8 Legal blindne ss, as defined in [facility] 05/21 [facility] RPR&REFITG SPECT XCP APHAKIA 67410-3.63 [id number] Diagnos is: ICD-10- CM Z46.0 Encount er for fit/adj st of spectac les and contact lenses Brad THOMPSON 05/29 [facility] GROUP THERAPEUTI C PROCEDURES [id number] [id number] Diagnos is: ICD-10- CM H54.8 Legal blindne ss, [place] MICHAEL LENNON 06/14 [facility] En[facility] [id number] [id number] 06/16 [facility] Encounter [id number] [id number] 06/17 [facility] Out[facility] Encounter [id number] [id number] 06/21 [facility] Out[facility] Encounter [id number] [id number] 06/24 [place] [facility] [place] OFFICE O/P EST MOD 30 MIN [id number] [id number] Diagnos is: ICD-10- CM D50.9 Iron deficie ncy anemia, unspeci fied Myranda BOND M 06/26 [facility] OFFICE O/P EST LOW 20 MIN [id number] [id number] Diagnos is: ICD-10- CM L60.3 Nail dystrop hy ROSSCHAREna ES F 06/27 [facility] En[facility] [id number] 06/28 [facility] GROUP THERAPEUTI C PROCEDURES [id number] [id number] Diagnos is: ICD-10- CM H54.8 Legal blindne ss, [place] defined [place] SANDY LENNON ISZONIA Mckeon 06/28 [facility] En[facility] [id number] [id number] 06/28 [facility] NQHP OL DIG ASSMT&MGMT 5-10 [id number] [id number] Diagnos is: ICD-10- CM 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 KAITLIN VICENTE RISTY A 07/04 [facility] Out[facility] Encounter [id number] [id number] 07/08 [facility] Out[facility] Encounter [id number] 07/08 [facility] [place] MTMS BY PHARM COMMERCIAL FIELD INSPECTOR 15 MIN [id number] [id number] Diagnos is: ICD-10- CM E11.9 Type 2 diabete s mellitu s without complic ations TYRON HARRIS IE 07/09 [place] [facility] Outpatient Encounter [id number] [id number] [facility] GROUP THERAPEUTI C PROCEDURES [id number] [id number] Diagnos is: ICD-10- CM H54.8 Legal blindne ss, [place] MICHAEL LENNON 07/12 [facility] Out[facility] Encounter [id number] [id number] 07/17 [facility] [place] DIAB MANA[place] TRN PER INDIV [id number] [id number] Diagnos is: ICD-10- CM E11.9 Type 2 diabete s mellitu s without complic ations LARISA PEREZ P 07/17 [place] Encounter [id number] [id number] 07/17 [place] [facility] Out[facility] Encounter [id number] [id number]/19 [facility] GROUP THERAPEUTI C PROCEDURES [id number] Diagnos is: ICD-10- CM 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, [place] defined in [place] SANDY LENNON ISTOP T 07/26 [facility] [place] [id number] Diagnos is: ICD-10- CM 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, [place] defined in [place] LISET BAUMAN 08/06 [facility] GROUP THERAPEUTI C PROCEDURES [id number] [id number] Diagnos is: ICD-10- CM 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, [place] MICHAEL LENNON 08/09 [facility] Out[facility] Encounter [id number] 08/13 [facility] NQHP OL DIG ASSMT&MGMT 5-10 [id number] [id number] Diagnos is: ICD-10- CM Z87.891 Persona l history of nicotin e depende nce SOVEROW,CH RISTY A 08/15 [facility] Out[facility] Encounter [id number] 08/16 [facility] [place] OFF/OP EST AUGUST X REQ PHY/QHP [id number] [id number] Diagnos is: ICD-10- CM S61.451 A Open bite of right hand, initial encount er CHRISTIE URBAN IC K 08[place]16 [place] [facility] [facility] Outpatient Encounter [id number] 08/16 [facility] [place] Outpatient Encounter [id number] 08/16 [place] [facility] [place] Outpatient Encounter [id number] 08[facility]19 [facility] Social History Combined list of available smoking, tobacco, and other social history from [facility] of Defense and [facility] facilities[facility] Social History Type Response Date Comment Source [facility] of [facility] [place] [facility] 03/29/2021 [place] [facility] of [facility] 12/19/2019 [facility] of [facility] 07/12/2018 [place] History of tobacco use QUIT TOBACCO USE > 7 YEARS AGO 07/04/2017 stopped 7-10 years ago [facility] History of tobacco use QUIT TOBACCO USE 1-7 YEARS AGO 10/19/2016 [place] History of tobacco use QUIT TOBACCO USE 1-7 YEARS AGO 02/01/2016 1.5 yrs. [place] History of tobacco use QUIT TOBACCO USE 1-7 YEARS AGO 12/11/2014 [place] History of tobacco use CURRENT SMOKER 02/17/2014 2 CIGARS A DAY [place] Plan of Care List of future care activities from [facility] facilities. Additional future care activities may be listed in the Assessment and Plan section. Date/Time Care Activity Care Activity Detail Facili ty 08/29/2024 AMBULATORY - REHAB MEDICINE AMBULATORY - REHAB MEDICINE [facility] Advance Directives List of completed, amended, or rescinded Advance Directives on record at [facility] Veterans Affairs facilities. An actual copy of the Directive is not included. Date Advance Directive Provider Source 03/29/2021 ADVANCE DIRECTIVE TYSON STORY
--- OUTSIDE RECORDS SUMMARY | 2024-08-20 12:17 | XMS_ITS | Encounter Summary ---
Author Name [facility] [place] [facility] [place] Address [address] [place] [id number] Care Team Providers Care Online Services Manager Name Role Phone MATI BOND Primary Care [...] PART B Jan 01, 2014 PART B [id number] [place] PATIENT MEDICARE (WNR) MEDICARE (M) PART B Jan 01, 2014 PART B [id number] [place] PATIENT MEDICARE (WNR) MEDICARE (M) PART A May 04, 2013 PART A [id number] [place] PATIENT MEDICARE (WNR) MEDICARE (M) PART A May 04, 2013 PART A [id number] [place] PATIENT [facility] (R) MEDICARE ADVANTAGE [facility] Apr 03, 2016 [facility] [id number] [phone] [place] PATIENT Selected Encounter This section includes the information on record at [place] for the Encounter. Date/Time Encounter Type Encounter Description Reason Provider Source Jun 26, 2024 10:30 AM OFFICE O/P EST MOD 30 MIN PRIMARY CARE/MEDICINE ICD-10-CM D50.9 Iron deficiency anemia, unspecified ALFA BOND [facility] Encounter Template Text not used by [place] Assessments - Encounter Diagnoses This section includes the primary and secondary diagnoses documented for the Encounter. Date/Time Primary/Secondary Diagnosis Diagnosis Name Provider Source Jul 04, 2024 10:32 AM PRIMARY Iron deficiency anemia, unspecified ALFA BOND [facility] Jul 04, 2024 10:32 AM SECONDARY Acute kidney failure, unspecified ALFA BOND [facility] Jul 04, 2024 10:32 AM SECONDARY Benign prostatic hyperplasia without lower urinry tract symp ALFA BOND [facility] Jul 04, 2024 10:32 AM SECONDARY Chronic kidney disease, stage 3 unspecified ALFA BOND [facility] Jul 04, 2024 10:32 AM SECONDARY Gastro-esophageal reflux dis with esophagitis, without bleed ALFA BOND [facility] Jul 04, 2024 10:32 AM SECONDARY Hypo-osmolality and hyponatremia ALFA BOND [facility] Jul 04, 2024 10:32 AM SECONDARY Mixed hyperlipidemia ALFA BOND [facility] Jul 04, 2024 10:32 AM SECONDARY Other cholelithiasis without obstruction ALFA BOND [facility] Jul 04, 2024 10:32 AM SECONDARY Type 2 diabetes mellitus w diabetic chronic kidney disease ALFA BOND [facility] Jul 04, 2024 10:32 AM SECONDARY Type 2 diabetes mellitus with diabetic polyneuropathy ALFA BOND [facility] Jul 04, 2024 10:32 AM SECONDARY Type 2 diabetes mellitus without complications ALFA BOND [facility] Jul 04, 2024 10:32 AM SECONDARY Unilateral inguinal hernia, w/o obst or gangrene, recurrent ALFA BOND [facility] Jul 04, 2024 10:32 AM SECONDARY Unspecified bacterial pneumonia ALFA BOND [facility] Plan of Treatment: Future Appointments (+ 6 months) and Future Tests (+/- 45 days) The Plan of Treatment section includes future care activities for the patient from [facility] [place] [facility] This section includes future appointments and future orders which are active, pending or scheduled. Future Appointments This section includes appointments that were scheduled to occur 6 months from the date of the Encounter, up to a maximum of 20 appointments. The data comes from all [place] treatment facilities. Appointment Date/Time Appointment Type Appointme nt Facility Name Jun 27, 2024 11:00 AM [facility]ATORY - [facility]ICINE [facility] Jul 05, 2024 03:30 PM [facility] [place] [facility] Jul 09, 2024 03:30 PM AMBULATORY - MEDICINE [place] [facility] [place] [facility] Jul 16, 2024 10:30 AM [facility] [place] [facility] Jul 17, 2024 09:00 AM [facility]ORY - [facility]ICINE [facility] Jul 17, 2024 10:30 AM AMBULATORY - MEDICINE [place] [facility] [place] [facility] August 06, 2024 10:30 AM AMBULATORY - MEDICINE [place] [facility] [place] [facility] August 06, 2024 11:00 AM [facility]ORY [facility]ICINE [facility] [place] [facility] August 06, 2024 11:45 AM AMBULATORY - NONE [facility] [place] [facility] August 16, 2024 10:15 AM [facility]ORY - MEDICINE [facility] August 29, 2024 11:00 AM AMBULATORY - REHAB MEDICIN [facility] [place] [facility] Sep 25, 2024 10:00 AM [facility]ATORY - MEDICINE [facility] Oct 02, 2024 10:30 AM [facility]ICINE [facility] Oct 16, 2024 10:00 AM [facility]ORY - [facility]ICINE [facility] Dec 25, 2024 11:00 AM AMBULATORY - MEDICINE [facility] Active, Pending, and Scheduled Orders This section includes a listing of several types of active, pending, and scheduled orders, including clinic medications orders, diagnostic test orders, procedure orders and consult orders; where the start date of the order is 45 days before the date of the Encounter or 45 days after the date of theEncounter. The data comes from all [facility]. Test Date/Time Test Type Test Details Facility Name Jul 08, 2024 04:41 PM Consult Order [facility]-NEPHROLOGY Cons [facility] Lab Results: +/- 30 days of the encounter This section includes the Chemistry and Hematology Lab Results on record with [place] for the patient. Radiology Reports and Pathology Reports are provided separately, in subsequent sections. Lab Results This section contains the Chemistry/Hematology Results that were resulted 30 days before or 30 daysafter the date of the Encounter. Date/Time Source Result Type Result - Unit Interpretation Reference Range Specimen Type Comment Jul 17, 2024 11:14 AM [facility] FERRITIN SERUM Specimen Type: SERUM No comment entered. Ordering Provider: JAYDEN BOND Report Released Date/Time: Jul 04, 2024 10:36 AM Reporting Lab: [address] [address] Performing Lab: [address] [address] FERRITIN 144.3 ng/mL 21.8-274.7 Jul 17, 2024 11:14 AM [facility] CBC AND DIFF (AUTO) BLOOD Specimen Type: BLOO D No comment entered. Ordering Provider: MATI BOND Report Released Date/Time: Jul 04, 2024 10:36 AM [facility] [address] Performing [facility] [address] WBC 10.23 10*3/uL 4.50-11.00 RBC 3.66 10*6/uL [...] 10*3/uL 0.00-0.00 Jul 17, 2024 11:14 AM [facility] VITAMIN D (25-OH) SERUM Specimen Type : SERUM No comment entered. Ordering Provider: DARLIN BALDWIN Report Released Date/Time: May 21, 2024 08:43 AM Reporting Lab[facility] [address] [address] [facility]: [facility] [address] [address] VITAMIN D (25-OH) 13.6 ng/mL L 20-50 Jul 17, 2024 11:14 AM [facility] MAGNESIUM SERUM Sp ecimen Type: SERUM No comment entered. Ordering Provider: DARLIN BALDWIN Report Released Date/Time: May 21, 2024 08:43 AM Reporting Lab: [facility] [place] [address] [address] [facility]forming [facility] [address] [address] MAGNESIUM 1.5 mg/dL L 1.6-2.6 Jul 17, 2024 11:14 AM [facility] IRON & TIBC PANEL SERUM Specimen Type : SERUM No comment entered. Ordering Provider: DARLIN BALDWIN Report Released Date/Time: May 21, 2024 08:43 AM Reporting [facility] [address] [address] Performing Lab: [place] [address] [address] TIBC 268 ug/dL 204-475 IRON 76 ug/dL 65-175 Transferrin Saturation 28.4 15-45 Transferrin (TRF) 203 mg/dL 180-382 Jul 17, 2024 11:14 AM [facility] HEMOGLOBIN A1C PANEL BLOOD Specimen T ype: [...] May 21, 2024 08:43 AM Reporting Lab: [address] [address] Performing Lab: [address] [address] HEMOGLOBIN A1C 7.5 H 4.0-5.6 Jul 17, 2024 11:14 AM [facility] TSH SERUM Sp ecimen Type: SERUM No comment entered. Ordering Provider: DARLIN BALDWIN Report Released Date/Time: May 21, 2024 08:43 AM Reporting [facility] [address] [address] Performing Lab: [address] [address] TSH 1.19 u[IU]/mL 0.35-4.94 Jul 17, 2024 11:14 AM [facility] LIVER FUNCTION SERUM Specimen Type: SERUM No comment entered. Ordering Provider: DARLIN BALDWIN Report Released Date/Time: May 21, 2024 08:43 AM Reporting Lab: [address] [address] Performing Lab: [address] [address] PROTEIN,TOTAL 7.5 g/dL 6.4-8.3 ALBUMIN 3.4 g/dL 3.2-4.6 ALKALINE PHOSPHATASE 112 U/L 40-150 AST 30 U/L 5-34 ALT 15 U/L BILIRUBIN, TOTAL 0.3 mg/dL 0.2-1.2 Jul 17, 2024 11:14 AM [facility] BASIC METABOLIC PANEL (fasting) SERUM Specimen Type: SERUM No comment entered. Ordering Provider: DARLIN BALDWIN Report Released Date/Time: May 21, 2024 08:43 AM Reporting [facility] [address] [address] Performing [facility] [address] [address] UREA NITROGEN 22 mg/dL 8-26 GLUCOSE 114 mg/dL H 65-100 SODIUM 132 mmol/L L 136-145 POTASSIUM 4.8 mmol/L 3.5-5.1 CHLORIDE 100 mmol/L 98-107 CO2 25 meq/L 23-31 CALCIUM 9.1 mg/dL 8.8-10 CREATININE, Serum 1.06 mg/dL 0.72-1.25 eGFR(CKD-EPI 2020) 73 mL/min >60 Jul 17, 2024 11:14 AM [facility] LIPID PANEL FASTING SERUM Specimen Ty pe: SERUM No comment entered. Ordering Provider: DARLIN BALDWIN Report Released Date/Time: May 21, 2024 08:43 AM Reporting [facility] [address] [address] Performing [facility] [address] [address] CHOLESTEROL 157 mg/dL TRIGLYCERIDE 74 mg/dL 0-150 LDL calculated 73 mg/dL 0-129 CHOL/HDL 2.3 HDL CHOLESTEROL 69 mg/dL >40 Jul 17, 2024 11:14 AM [facility] PSA SERUM Sp ecimen Type: SERUM No comment entered. Ordering Provider: DARLIN BALDWIN Report Released Date/Time: May 21, 2024 08:43 AM Reporting Lab: [facility] [address] [address] Performing [facility]: [facility] [address] [address] PSA 1.0 ng/mL 0.0-4.0 Vital Signs: All taken on the encounter date This section contains inpatient and outpatient Vital Signs collected on the date of the Encounter. Date/Time Temperature Pulse Blood Pressure Respiratory Rate SP02 Pain Height Weight Body Mass Index Source Jun 26, 2024 10:34 AM 93 150/80 96 120 20 [facility] IE Social History: Smoking Status (Most current) and Tobacco Use (All prior to encounter date) This section includes the most current, and the historical, smoking and tobacco- related health factors from the [place] facility where the Encounter took place. Current Smoking Status This section includes the most current smoking, or tobacco-related health factor, from the [place] facility where the Encounter took place. Date/Time Current Smoking Status Comment Facil ity Jan 20, 2023 10:00 AM VA-TOBACCO FORMER USER [facility] Tobacco Use History This section includes a history of the smoking, or tobacco-related health factors, that were collected on or before the date of the Encounter. The data comes from the [place] facility where the Encounter took place. Date/Time Smoking Status/Tobacco Use Comment F acility Jan 20, 2023 10:00 AM VA-TOBACCO QUIT 15 YRS OR MORE [facility] Mar 29, 2021 11:00 AM VA-TOBACCO FORMER USER [facility] Mar 29, 2021 11:00 AM VA-TOBACCO QUIT 5 TO < 15 YRS [facility] Jul 12, 2018 02:39 PM VA-TOBACCO FORMER USER [facility] Jul 12, 2018 02:39 PM VA-TOBACCO QUIT 15 YRS OR MORE [facility] Jul 04, 2017 10:22 AM QUIT TOBACCO USE > 7 YEARS AGO stopped 7-10 years ago [facility] Oct 19, 2016 10:08 AM QUIT TOBACCO USE 1 -7 YEARS AGO [facility] Feb 01, 2016 01:15 PM QUIT TOBACCO USE 1 -7 YEARS AGO 1.5 yrs. [facility] Dec 11, 2014 02:03 PM QUIT TOBACCO USE 1 -7 YEARS AGO [facility] Feb 17, 2014 02:23 PM CURRENT SMOKER 2 CIGARS A DAY [facility] Feb 17, 2014 02:23 PM V1-PT DECLINES TOB ACCO CESSATION MEDS [facility] Feb 17, 2014 02:23 PM V1-PT THINKING ABO UT QUIT TOBACCO USE [facility] Advance Directives: All historical and current Section Date Range: From patient's date of to the date document was created. This section includes ALL of a patient's completed or amended [place] Advance and Rescinded Directives. The entries below indicate that a directive exists for the patient, but an actual copy is not included with this document. The data comes from all [place] facilities. Date Advance Directives Provider Source Mar 29, 2021 ADVANCE DIRECTIVE TYSON STORY [facility] Encounter Notes: All associated encounter notes This section contains the clinical notes associated to the Encounter. Date/Time Encounter Note(s) Provider Source Jun 26, 2024 10:20 PM PHYSICIAN NOTE: LOCAL TITLE: MD NOTE STANDARD TITLE: PHYSICIAN NOTE DATE OF NOTE: JUN 26, 2024@22:20 ENTRY DATE: JUL 04, 2024@00:00:43 AUTHOR: MATI BOND EXP COSIGNER: URGENCY: STATUS: COMPLETED NOTE Has ADDENDA Chief complaint:Pt is a 74 year old who comes in for follow up of medical problems as noted below. PMH: Active problems - Computerized Problem List is the source for the followin. Former smoker ages 15-50 declines LDCT, AAA screen 2. Essential tremor 3. ARUNA - Iron deficiency anemia 04/15/24 HGB 11.9 4. Exposure to potentially hazardous substance ([facility] [id number]) Entered automatically through GISELE Problem List documentation program Agent Tate asbestos 5. Osteoarthritis of right knee joint [...] for malignant neoplasm of colon done 01-23-2021 [facility] Mayorga tubular adenoma no dysplagia, no return [...] clinic today for F2F visit with his Amaris. This is 1st visit with the by this PCP. is feeling fine and has no new complains now, on his baseline. [place] developed acute weakness headaches body aches dizziness diarrhea and went to emergency room at [facility]. Found to have multifocal pneumonia with sepsis. Also MOISES hyponatremia hypomagnesemia elevated liver function test. also has large right inguinal hernia. On CAT scans also found to have cholelithiasis with moderately distended gallbladder, enlarged prostate. Treated with IV antibiotics and replete electrolytes events feels better discharged home on p.o. antibiotics which he finished. Feels fine now denies any SOB. has some new medications added and some [...] >60; Na+131 CA++: WnL Imaging/Tests: none in [place] system Assessment/Plan: Multifocal pneumonia June 16, 2024: [...] On Zetia 10 mg IDDM: Followed by [place] pharmacy Michelle Galvan Pharm.D. Last A1c 8.6 [...] imaging reviewed, discussed, questions answered. Meds refilled. [place] verbalized understanding of the plan and agreed [...] of this note is partially produced using [employer] voice recognition software. Some errors in words, composition, structure are possible. Medication Reconciliation: Outpatient: Has the patient been taking medications as documented in the EMLR? No: Discrepencies were identified. See below. Essential Medication List for Review used to complete this medication reconciliation. INCLUDED IN THIS LIST: Alphabetical list of active outpatient prescriptions dispensed from this [facility] (local) and dispensed from another [place] or [facility] facility (remote) as well as inpatient [...] with a VA or non-VA provider. /kayla/ Mati Bond MD MD PRIMARY CARE PHYSICIAN Signed: 07/04/2024 10:33 Receipt Acknowledged By: 07/04/2024 11:25 /es/ POLLO SLOAN ADVANCED MACHINE ROOM OPERATOR 07/04/2024 11:53 /es/ JEREMIAS WILHELM LPN Licensed Practical Nurse 08/18/2024 ADDENDUM STATUS: COMPLETED #CXR 08/06/2024 Reason for Study Recent pneumonia Impression Mild fibrotic changes of the lungs and low lung volumes with no airspace disease process identified. If the outside report or images are provided, an addended report may be generated. Imaging follow-up should be as clinically indicated. Report Study: PA and lateral chest x-ray. Comparison: None. Findings: Low lung volumes are present. Mild fibrotic changes are present throughout the lungs. No airspace disease process is identified. No acute pulmonary process is identified. The costophrenic sulci are sharp. Cardiac and mediastinal contours and pulmonary vascularity are normal. No acute skeletal abnormalities are identified. Age-appropriate degenerative changes are seen to the spine. Primary Diagnostic Code: No immediate attention required Secondary Diagnostic Codes: NONE Facility: [facility] /kayla/ Mati Bond MD MD PRIMARY CARE PHYSICIAN Signed: 08/18/2024 20:29 MATI BOND [facility] Jun 26, 2024 10:32 AM PREVENTIVE MEDICIN [...] Immunization: Respiratory Syncytial Virus (RSV) Vaccine: Refused [employer] (RSV vaccine, adjuvanted, Arexvy). Immunization: RSV, RECOMBINANT, [...] Prov. Narr. - Diabetes mellitus type 2 ([facility] [id number]) MACULAR DEGENERATION: Macular Degeneration Risk Factors Information: Reminder Term: VA-AMD RISK FACTORS Problem Diagnosis: 05/21/2024 H35.30 (ICD-10-CM) Unspecified Macular Degeneration Date Entered: 12/18/2014; Date Last Modified: 05/21/2024 Status: ACTIVE; Priority: UNDEFINED Prov. Narr. - Myopic macular degeneration Action: Patient has a future eye care appointment scheduled within the next 90 days. Date of Appointment: [facility]ET F[facility]U WITH [facility] /kayla/ JEREMIAS WILHELM LPN Licensed Practical Nurse Signed: 06/26/2024 10:33 JEREMIAS WILHELM [facility]
--- OUTSIDE RECORDS SUMMARY | 2024-08-20 12:17 | XMS_ITS | Patient Health Record ---
Author Organization [facility] Address [address] [place] [address] Care Team Providers Care Coat Hanger Shaper Machine Operator Name Role Phone Celeste Mishra Primary Care Provider Jason Zavaleta Unavailable [phone] Reason For Referral No Information Medications Medication [...] Problem Status W/U Status Risk Notes Problem [id number] Encounter for screening for malignant neoplasm of colon (Z12.11) Active confirmed Problem [id number] Diarrhea, unspecified type (R19.7) Active confirmed Plan Of Treatment Future Test Test Name Order Date COLONOSCOPY 12/25/2019 Insurance Providers Payer Name Payer Address Payer Phone Subscriber Number Group Number Insured Name Patient Relationship to Insured Coverage Start Date Coverage End Date [facility] [employer] [address] [place] [id number] [place] Self - patient is the insured Medical (General) History Medical History History ICD Code IDDM Hypertension Legally Blind - Vision Impaired Denies [place],CVA,Lung disease,renal disease Negative colonoscopy in appr ox. 2009 at [facility] and told to do one in 10 years Told of negative stool test at home 2019 --? Cologuard GERD Surgical History Surgery Date(Month/Year)
--- OUTSIDE RECORDS SUMMARY | 2024-08-20 12:18 | XMS_ITS | Encounter Summary ---
Author Name [facility] [place] [facility] [place] Address [address] [place] [address] Care Team Providers Care Registrar Nurses' Registry Name Role Phone TRESSA BOND Primary Care [...] Name Patient's Relationship to Policy Velez MEDICARE (R) MEDICARE (M) PART B Jan 01, 2014 PART B [id number] PARISH KHAN PATIENT MEDICARE (WNR) MEDICARE (M) PART B Jan 01, 2014 PART B [id number] [place] KHAN PATIENT MEDICARE (WNR) MEDICARE (M) PART A May 04, 2013 PART A [id number] PARISH KHAN PATIENT MEDICARE (WNR) MEDICARE (M) PART A May 04, 2013 PART A [id number] PARISH KHAN PATIENT [facility] MEDICARE ADVANTAGE [facility] Apr 03, 2016 [facility] [id number] [phone] PARISH KHAN PATIENT Selected Encounter This section includes the information on record at [place] for the Encounter. Date/Time Encounter Type Encounter Description Reason Provider Source August 15, 2024 08:13 AM HP OL DIG ASSMT&MGMT 5-10 CLINICAL PHARMACY ICD-10-CM Z87.891 Personal history of nicotine dependence TRENA VICENTE [facility] Encounter Template Text not used by [place] Assessments - Encounter Diagnoses This section includes the primary and secondary diagnoses documented for the Encounter. Date/Time Primary/Secondary Diagnosis Diagnosis Name Provider Source August 15, 2024 08:13 AM PRIMARY Personal history of nicotine dependence PATRICIA COPELAND [facility] Plan of Treatment: Future Appointments (+ 6 months) and Future Tests (+/- 45 days) The Plan of Treatment section includes future care activities for the [facility] [place] [facility] This section includes future appointments and future orders which are active, pending or scheduled. Future Appointments This section includes appointments that were scheduled to occur 6 months from the date of the Encounter, up to a maximum of 20 appointments. The data comes from all [facility]. Appointment Date/Time Appointment Type Appointme nt Facility Name August 16, 2024 10:15 AM AMBULATORY - MEDICINE [facility] August 29, 2024 11:00 AM AMBULATORY - REHAB MEDICIN E [facility] Sep 25, 2024 10:00 AM AMBULATORY - MEDICINE [facility] Oct 02, 2024 10:30 AM AMBULATORY - MEDICINE [facility] Oct 16, 2024 10:00 AM AMBULATORY - MEDICINE [facility] Dec 25, 2024 11:00 AM AMBULATORY - MEDICINE [facility] Active, Pending, and Scheduled Orders This section includes a listing of several types of active, pending, and scheduled orders, including clinic medications orders, diagnostic test orders, procedure orders and consult orders; where the start date of the order is 45 days before the date of the Encounter or 45 days after the date of theEncounter. The data comes from all [facility]. Test Date/Time Test Type Test Details Facility Name Jul 08, 2024 04:41 PM Consult Order [facility]-NEPHROLOGY Cons Roll Weigher's Choice [facility] Lab Results: +/- 30 days of the encounter This section includes the Chemistry and Hematology Lab Results on record with [place] for the patient. Radiology Reports and Pathology Reports are provided separately, in subsequent sections. Lab Results This section contains the Chemistry/Hematology Results that were resulted 30 days before or 30 daysafter the date of the Encounter. Date/Time Source Result Type Result - Unit Interpretation Reference Range Specimen Type Comment Jul 17, 2024 11:14 AM [facility] FERRITIN SERUM Specimen Type: SERUM No comment entered. Ordering Provider: JAYDEN BOND Report Released Date/Time: Jul 04, 2024 10:36 AM Reporting Lab: [address] [address] Performing Lab: [address] [address] FERRITIN 144.3 ng/mL 21.8-274.7 Jul 17, 2024 11:14 AM [facility] CBC AND DIFF (AUTO) BLOOD Specimen Type: BLOO D No comment entered. Ordering Provider: TRESSA BOND Report Released Date/Time: Jul 04, 2024 10:36 AM Reporting Lab: [facility] [address] [facility] [address] Performing Lab: [address] [address] WBC 10.23 10*3/uL 4.50-11.00 RBC 3.66 10*6/uL [...] 10*3/uL 0.00-0.00 Jul 17, 2024 11:14 AM [facility] VITAMIN D (25-OH) SERUM Specimen Type : SERUM No comment entered. Ordering Provider: DARLIN BALDWIN Report Released Date/Time: May 21, 2024 08:43 AM Reporting Lab: [address] [address] Performing Lab: [address] [address] VITAMIN D (25-OH) 13.6 ng/mL L 20-50 Jul 17, 2024 11:14 AM [facility] MAGNESIUM SERUM Sp ecimen Type: SERUM No comment entered. Ordering Provider: DARLIN BALDWIN Report Released Date/Time: May 21, 2024 08:43 AM Reporting Lab: [address] [address] Performing Lab: [address] [address] MAGNESIUM 1.5 mg/dL L 1.6-2.6 Jul 17, 2024 11:14 AM [facility] IRON & TIBC PANEL SERUM Specimen Type : SERUM No comment entered. Ordering Provider: DARLIN BALDWIN Report Released Date/Time: May 21, 2024 08:43 AM Reporting Lab: [address] [address] Performing Lab: [address] [address] TIBC 268 ug/dL 204-475 IRON 76 ug/dL 65-175 Transferrin Saturation 28.4 15-45 Transferrin (TRF) 203 mg/dL 180-382 Jul 17, 2024 11:14 AM [facility] HEMOGLOBIN A1C PANEL BLOOD Specimen T ype: [...] 21, 2024 08:43 AM Reporting Lab: [address] [address] Performing Lab: [address] [address] HEMOGLOBIN A1C 7.5 H 4.0-5.6 Jul 17, 2024 11:14 AM [facility] TSH SERUM Sp ecimen Type: SERUM No comment entered. Ordering Provider: DARLIN BALDWIN Report Released Date/Time: May 21, 2024 08:43 AM Reporting Lab: [facility] [address] [address] Performing Lab: [facility] [address] [address] TSH 1.19 u[IU]/mL 0.35-4.94 Jul 17, 2024 11:14 AM [facility] LIVER FUNCTION SERUM Specimen Type: SERUM No comment entered. Ordering Provider: DARLIN BALDWIN Report Released Date/Time: May 21, 2024 08:43 AM Reporting Lab: [facility] [address] [address] Performing Lab: [address] [address] PROTEIN,TOTAL 7.5 g/dL 6.4-8.3 ALBUMIN 3.4 g/dL 3.2-4.6 ALKALINE PHOSPHATASE 112 U/L 40-150 AST 30 U/L 5-34 ALT 15 U/L BILIRUBIN, TOTAL 0.3 mg/dL 0.2-1.2 Jul 17, 2024 11:14 AM [facility] BASIC METABOLIC PANEL (fasting) SERUM Specimen Type: SERUM No comment entered. Ordering Provider: DARLIN BALDWIN Report Released Date/Time: May 21, 2024 08:43 AM Reporting Lab: [facility] [address] [address] Performing Lab: [address] [address] UREA NITROGEN 22 mg/dL 8-26 GLUCOSE 114 mg/dL H 65-100 SODIUM 132 mmol/L L 136-145 POTASSIUM 4.8 mmol/L 3.5-5.1 CHLORIDE 100 mmol/L 98-107 CO2 25 meq/L 23-31 CALCIUM 9.1 mg/dL 8.8-10 CREATININE, Serum 1.06 mg/dL 0.72-1.25 eGFR(CKD-EPI 2020) 73 mL/min >60 Jul 17, 2024 11:14 AM [facility] LIPID PANEL FASTING SERUM Specimen Ty pe: SERUM No comment entered. Ordering Provider: DARLIN BALDWIN Report Released Date/Time: May 21, 2024 08:43 AM Reporting Lab: [facility] [address] [address] Performing Lab: [address] [address] CHOLESTEROL 157 mg/dL TRIGLYCERIDE 74 mg/dL 0-150 LDL calculated 73 mg/dL 0-129 CHOL/HDL 2.3 HDL CHOLESTEROL 69 mg/dL >40 Jul 17, 2024 11:14 AM [facility] PSA SERUM Sp ecimen Type: SERUM No comment entered. Ordering Provider: DARLIN BALDWIN Report Released Date/Time: May 21, 2024 08:43 AM Reporting Lab: [facility] [address] [address] Performing Lab: [facility] [address] [address] PSA 1.0 ng/mL 0.0-4.0 Social History: Smoking Status (Most current) and Tobacco Use (All prior to encounter date) This section includes the most current, and the historical, smoking and tobacco- related health factors from the [place] facility where the Encounter took place. Current Smoking Status This section includes the most current smoking, or tobacco-related health factor, from the [place] facility where the Encounter took place. Date/Time Current Smoking Status Comment Facil ity Jan 29, 2024 10:34 AM VA-TOBACCO NEVER USED [facility] Tobacco Use History This section includes a history of the smoking, or tobacco-related health factors, that were collected on or before the date of the Encounter. The data comes from the [place] facility where the Encounter took place. Date/Time Smoking Status/Tobacco Use Comment F acility Dec 19, 2019 12:00 PM VA-TOBACCO FORMER USER [facility] Dec 19, 2019 12:00 PM [place]-TOBACCO QUIT 1 TO < 5 YRS [facility] Advance Directives: All historical and current Section Date Range: From patient's date of to the date document was created. This section includes ALL of a patient's completed or amended [place] Advance and Rescinded Directives. The entries below indicate that a directive exists for the patient, but an actual copy is not included with this document. The data comes from all [place] facilities. Date Advance Directives Provider Source Mar 29, 2021 ADVANCE DIRECTIVE TYSON STORY [facility] Radiology Reports: +/- 30 days of the [...] the Encounter. The data comes from all [place] treatment facilities. Date/Time Radiology Report Provider Source August 06, 2024 10:50 AM CHEST (2 VIEWS): RICO KHAN [id number] -1950 M Exm Date: AUGUST 06, 2024@10:50 Req Phys: TRESSA BOND Loc: [facility]/NO/BLIND REHAB TELE (Req Img Loc: [facility] Service: Unknown [facility] [address] (Case [id number] COMPLETE) CHEST (2 VIEWS) (RAD Detailed) CPT:84330 Reason for Study: Recent pneumonia Clinical History: IDDM, Report Status: Verified Date Reported: AUGUST 06, 2024 Date Verified: AUGUST 06, 2024 Animal Behaviourist E-Sig:/ES/BETTY BURT JR Report: Study: PA and [...] Primary Interpreting Staff: BETTY BURT JR, Radiologist (Animal Behaviourist) /BETTY LEIVA JR [facility] Encounter Notes: All associated encounter notes This section contains the clinical notes associated to the Encounter. Date/Time Encounter Note(s) Provider Source August 15, 2024 08:13 AM PHARMACY OUTPATIEN T MEDICATION MGT NOTE: LOCAL TITLE: COMMUNITY PHARMACY PRESCRIPTION NOTE STANDARD TITLE: PHARMACY OUTPATIENT MEDICATION MGT NOTE DATE OF NOTE: AUGUST 15, 2024@08:13 ENTRY DATE: AUGUST 15, 2024@08:14:07 AUTHOR: PATRICIA COPELAND COSIGNER: URGENCY: STATUS: COMPLETED COMMUNITY PHARMACY PRESCRIPTION NOTE Has ADDENDA Pharmacy has received a NON-VA CARE prescription. The prescription below CANNOT BE FILLED due to the absence of an active consult. VET WENT TO A NON VA APPROVED CLINIC eRx Drug : naproxen 500 mg tablet eRx SIG : 500 mg orally every 12 hours As Needed for pain QTY: 20 REFILLS: 0 eRx Drug : amoxicillin 875 mg-potassium clavulanate 125 mg tablet eRx SIG : 1 tab orally every 12 hours QTY: 20 REFILLS: 0 eRx Drug : naproxen 500 mg tablet eRx SIG : 500 mg orally every 12 hours As Needed for pain QTY: 20 REFILLS: 0 Name of Provider: AIRAM GARCIA Type of Provider: [facility] *NOT AN APPROVED [place] CLINIC* [address] [place] [address] P: [phone] IF A NEW CONSULT IS PLACED PLEASE: 1. Reach out to the to have them get a new prescription, OR 2. Call the community care provider's office directly for them to resend, OR 3. Notify advertising writer of consult placed Thank you /kayla/ PATRICIA COPELAND CC Administrative Professional Signed: 08/15/2024 08:17 Receipt Acknowledged By: 08/15/2024 19:26 /kayla/ Tressa Bond MD MD PRIMARY CARE PHYSICIAN 08/15/2024 09:32 /kayla/ BARTOLOME LEMUS RN-BC REGISTERED NURSE 08/15/2024 ADDENDUM STATUS: COMPLETED Boyce presented to [facility] front end loader operator yesterday afternoon. No scripts had been received at that time. Author discussed dog bite and current infection of hand with PCP and he prescribed antibiotic course for to cone picker prior to close of business for [place] pharmacy window yesterday. picked up antibiotic course same day. No further action required by PACT. /kayla/ BARTOLOME LEMUS RN-BC REGISTERED NURSE Signed: 08/15/2024 09:36 PATRICIA COPELAND [place] [facility]
--- OUTSIDE RECORDS SUMMARY | 2024-08-20 12:18 | XMS_ITS | Encounter Summary ---
Author Name [facility] [place] [facility] [place] Address [address] [place] [address] Care Team Providers Care Software Controls Engineer Name Role Phone MATI BOND Primary Care [...] PART B Jan 01, 2014 PART B [id number] [place] PATIENT MEDICARE (WNR) MEDICARE (M) PART B Jan 01, 2014 PART B [id number] [place] PATIENT MEDICARE (WNR) MEDICARE (M) PART A May 04, 2013 PART A [id number] [place] PATIENT MEDICARE (WNR) MEDICARE (M) PART A May 04, 2013 PART A [id number] [place] K[place]AN PATIENT [facility] (R) MEDICARE ADVANTAGE [facility] Apr 03, 2016 [facility] [id number] [phone] NEILAL,PARISH REAL PATIENT Selected Encounter This section includes the information on record at [place] for the Encounter. Date/Time Encounter Type Encounter Description Reason Pro vider Source August 19, 2024 09:23 AM Outpatient Encounter COMMUNITY CARE CONSULT IHE Encounter Template Text not used by [place] Plan of Treatment: Future Appointments (+ 6 months) and Future Tests (+/- 45 days) The Plan of Treatment section includes future care activities for the patient from all [place] treatmentfacilities. This section includes future appointments and future orders which are active, pending or scheduled. Future Appointments This section includes appointments that were scheduled to occur 6 months from the date of the Encounter, up to a maximum of 20 appointments. The data comes from all [place] treatment facilities. Appointment Date/Time Appointment Type Appointme nt Facility Name August 29, 2024 11:00 AM AMBULATORY - REHAB MEDICIN E [facility] Sep 25, 2024 10:00 AM AMBULATORY - MEDICINE [facility] Oct 02, 2024 10:30 AM [facility] Oct 16, 2024 10[facility]00 [facility] Dec 25, 2024 [...] of theEncounter. The data comes from all [place] treatment [facility]. Test Date/Time Test Type Test Details Facility Name Jul 08, 2024 04:41 PM Consult Order COMM[facility]ITY CARE-NEPHROLOGY Cons Jewel Hole Finish Opener's Choice ADRI[facility] Social History: Smoking Status (Most current) and Tobacco Use (All prior to encounter date) This section includes the most current, and the historical, smoking and tobacco- related health factors from the [place] facility where the Encounter took place. Current Smoking Status This section includes the most current smoking, or tobacco-related health factor, from the [place] facility where the Encounter took place. Date/Time Current Smoking Status Comment Facil ity Jan 29, 2024 10:34 AM [place]-TOBACCO NEVER USED [facility] Tobacco Use History This section includes a history of the smoking, or tobacco-related health factors, that were collected on or before the date of the Encounter. The data comes from the [place] facility where the Encounter took place. Date/Time Smoking Status/Tobacco Use Comment F acility Dec 19, 2019 12:00 PM [place]-TOBACCO FORMER USER [facility] Dec 19, 2019 12:00 PM [place]-TOBACCO QUIT 1 TO < 5 YRS [facility] Advance Directives: All historical and current Section Date Range: From patient's date of to the date document was created. This section includes ALL of a patient's completed or amended [place] Advance and Rescinded Directives. The entries below indicate that a directive exists for the patient, but an actual copy is not included with this document. The data comes from all [place] facilities. Date Advance Directives Provider Source Mar 29, 2021 ADVANCE DIRECTIVE TYSON STORY [facility] Radiology Reports: +/- 30 days of [...] the Encounter. The data comes from all [place] treatment facilities. Date/Time Radiology Report Provider Source August 06, 2024 10:50 AM CHEST (2 VIEWS): RICO KHAN [id number] -1950 M Exm Date: AUGUST 06, 2024@10:50 Req Phys: MATI BOND Pat Loc: [facility]/NO/BLIND REHAB TELE (Req Img Loc: [facility]/BUILD[facility] 1 Service: [place] [address] (Case 94 COMPLETE) CHEST (2 VIEWS) (RAD Detailed) CPT:72549 Reason for Study: Recent pneumonia Clinical History: IDDM, Report Status: Verified Date Reported: AUGUST 06, 2024 Date Verified: AUGUST 06, 2024 Patch Finisher E-Sig:/ES/BETTY BURT JR Report: Study: PA and [...] Primary Interpreting Staff: BETTY BURT JR, Radiologist (Patch Finisher) /BETTY LEIVA JR [facility] Encounter Notes: All associated encounter notes This section contains the clinical notes associated to the Encounter. Date/Time Encounter Note(s) Provider Source August 19, 2024 09:23 AM NONVA NOTE: LOCAL TITLE: COMMUNITY CARE-DESTINY SELF PRESENTING CARE COORD PLAN STANDARD TITLE: NONVA NOTE DATE OF NOTE: AUGUST 19, 2024@09:23 ENTRY DATE: AUGUST 19, 2024@09:23:59 AUTHOR: CIRA QUINTANILLA EXP COSIGNER: URGENCY: STATUS: COMPLETED COMMUNITY CARE-DESTINY SELF PRESENTING CARE COORD PLAN NOTE Has ADDENDA Emergency Notification Intake Date Presenting to the Facility: August Method of Contact: Notified from [employer] worklist Notification ID: [id number] [facility] Referral #: [facility] Name: Hospital: [facility] Address: City: [place] State: [place] Zip Code: Phone : [facility] Point of Contact: Name: Phone: Chief complaint: bit by dog,infected Primary Diagnosis: Disposition Admitted Route of Admission: ER Date of Admission: August Admitting Diagnosis: bit by dog,infected [facility] Care Provider: Confirm Level of Care: /kayla/ CIRA MALLORY Signed: 08/19/2024 09:25 Receipt Acknowledged By: 08/20/2024 01:57 /es/ Mati Bond MD MD PRIMARY CARE PHYSICIAN 08/19/2024 16:17 /es/ KIMBERLI LEMUSN RN-BC REGISTERED NURSE * AWAITING SIGNATURE * DOMINICK WHELAN * AWAITING SIGNATURE * SOLIS OROZCO * AWAITING SIGNATURE * RUBEN HULL 08/19/2024 ADDENDUM STATUS: COMPLETED Please request record from 's ED visit on 08/16/2024 at [facility] for PACT review. /kayla/ KIMBERLI LEMUSN RN-BC REGISTERED NURSE Signed: 08/19/2024 16:17 Receipt Acknowledged By: * AWAITING SIGNATURE * POLLO SLOAN DAWN MARIE VIRGIN
--- OUTSIDE RECORDS SUMMARY | 2024-08-20 12:18 | XMS_ITS | Encounter Summary ---
Author Name [facility] Organization [facility] Address [address] [place] [id number] Care Team Providers Care Salesperson Books Name Role Phone TRESSA BOND Primary Care [...] PART B Jan 01, 2014 PART B [id number] PARISH KHAN PATIENT MEDICARE (WNR) MEDICARE (M) PART B Jan 01, 2014 PART B [id number] PARISH KHAN PATIENT MEDICARE (WNR) MEDICARE (M) PART A May 04, 2013 PART A [id number] PARISH KHAN PATIENT MEDICARE (WNR) MEDICARE (M) PART A May 04, 2013 PART A [id number] PARISH KHAN PATIENT [facility] (R) MEDICARE ADVANTAGE [facility] ([facility]) Apr 03, 2016 [facility] ([facility]) [id number] [phone] [place] PATIENT Selected Encounter This section includes the information on record at [place] for the Encounter. Date/Time Encounter Type Encounter Description Reason Pro vider Source August 16, 2024 10:58 AM Outpatient Encounter PRIMARY CARE/MEDICINE IHE Encounter Template Text not used by [place] Plan of Treatment: Future Appointments (+ 6 months) and Future Tests (+/- 45 days) The Plan of Treatment section includes future care activities for the patient from all [place] treatmentfacilities. This section includes future appointments and future orders which are active, pending or scheduled. Future Appointments This section includes appointments that were scheduled to occur 6 months from the date of the Encounter, up to a maximum of 20 appointments. The data comes from all [place] treatment facilities. Appointment Date/Time Appointment Type Appointme nt Facility Name August 29, 2024 11:00 AM AMBULATORY - REHAB MEDICIN E [facility] Sep 25, 2024 10:00 AM AMBULATORY - MEDICINE [facility] Oct 02, 2024 10:30 AM AMBULATORY - MEDICINE [facility] Oct 16, 2024 10:00 AM AMBULATORY - MEDICINE [facility] Dec 25, 2024 11:00 AM AMBULATORY - MEDICINE [facility] Active, Pending, and Scheduled Orders This section includes a listing of several types of active, pending, and scheduled orders, including clinic medications orders, diagnostic test orders, procedure orders and consult orders; where the start date of the order is 45 days before the date of the Encounter or 45 days after the date of theEncounter. The data comes from all [place] treatment facilities. Test Date/Time Test Type Test Details Facility Name Jul 08, 2024 04:41 PM Consult Order COMMUNITY CARE-NEPHROLOGY Cons Home Management Supervisor's Choice [place] Social History: Smoking Status (Most current) and [...] 29, 2024 10:34 AM [place]-TOBACCO NEVER USED [facility] Tobacco Use History This section includes a history of the smoking, or tobacco-related health factors, that were collected on or before the date of the Encounter. The data comes from the [place] facility where the Encounter took place. Date/Time Smoking Status/Tobacco Use Comment F acility Dec 19, 2019 12:00 PM [place]-TOBACCO FORMER USER [facility] Dec 19, 2019 12:00 PM [place]-TOBACCO QUIT 1 TO < 5 YRS [facility] Advance Directives: All historical and current [...] 2021 ADVANCE DIRECTIVE [facility] [employer] [facility] Radiology Reports: +/- 30 days [...] the Encounter. The data comes from all [place] treatment facilities. Date/Time Radiology Report Provider Source August 06, 2024 10:50 AM CHEST (2 VIEWS): RICO KHAN [id number] M Exm Date: AUGUST 06, 2024@10:50 Req Phys: TRESSA BOND Pat Loc: [facility]/NO/BLIND REHAB TELE (Req Img Loc: [facility]BUILDING 1 Service: [place] [address] (Case [id number] COMPLETE) CHEST (2 VIEWS) (RAD Detailed) CPT:05064 Reason for Study: Recent pneumonia Clinical History: IDDM, Report Status: Verified Date Reported: AUGUST 06, 2024 Date Verified: AUGUST 06, 2024 Zoology Teacher E-Sig:/ES/BETTY BURT JR Report: Study: PA and [...] Primary Interpreting Staff: BETTY BURT JR, Radiologist (Zoology Teacher) /BETTY LEIVA JR [facility] Encounter Notes: All associated encounter notes This section contains the clinical notes associated to the Encounter. Date/Time Encounter Note(s) Provider Source August 16, 2024 11:06 AM ADDENDUM: LOCAL TITLE: Addendum STANDARD TITLE: ADDENDUM DATE OF NOTE: AUGUST 16, 2024@11:06:51 ENTRY DATE: AUGUST 16, 2024@11:06:52 AUTHOR: DAVE SLOAN COSIGNER: URGENCY: STATUS: COMPLETED THIS REGISTERED ROUTE ASSOCIATE FAXED THIS NOTE TO [facility] ER PER SPR SICK CALL RN. /kayla/ POLLO SLOAN ADVANCED HOTEL OFFICE MANAGER Signed: 08/16/2024 11:12 Receipt Acknowledged By: 08/16/2024 14:48 /jessica URBAN RN PRIMARY CARE RN --- Original Document --- 08/16/24 ADMINISTRATIVE NOTE: RICO KHAN is a 74 yo MALE who is being sent to your Emergency Department for assessment and care. This has been authorized by TRESSA BOND ADDITIONAL NOTE/INFORMATION MAY FOLLOW Pt. has a history of: Active problems - Computerized Problem List is the source for the followin. Former smoker 2. Essential tremor 3. ARUNA - Iron deficiency anemia 4. Exposure to potentially hazardous substance ([facility] [id number]) 5. Osteoarthritis of right knee joint 6. [...] Outpatient Medications Status 1) ADHESIVE REMOVER SPRAY H#8441 SUFFICIENT AMOUNT TOPICALLY ACTIVE EVERY 10 DAYS [...] 14 DAYS Allergies: Patient has answered NKA RECENT VITAL SIGNS ======= Blood Pressure: 129/67 (08/16/2024 10:33) Pain: 9 (08/16/2024 10:33) Patient Height: 65 in [165.1 cm] (01/13/2022 10:17) Patient Weight: 120 lb [54.43 kg] (06/26/2024 10:34) Pulse: 100 (08/16/2024 10:33) Respiration: 18 (08/16/2024 10:33) Temperature: 98.4 F [36.9 C] (08/16/2024 10:33) Pulse Ox: Measurement DT POx (L/MIN)(%) 08/16/2024 10:33 97 ======= IMMUNIZATION HX PCE IMMUNIZATIONS ADMINISTERED Immunization Series Date Facility Reaction Info COVID-19 (MODERNA), MRNA, LNP-S,* 3 03/13/2021 [facility] <C> COVID-19 (MODERNA), MRNA, LNP-S,* 2 06/05/2020 Outside H* COVID-19 (MODERNA), MRNA, LNP-S,* 1 05/08/2020 Outside H* FLU,3 YRS (HISTORICAL) 12/16/2016 [facility] <C> FLU,3 YRS (HISTORICAL) 02/01/2016 [facility] <C> FLU,3 YRS (HISTORICAL) 12/23/2014 [facility]* FLU,3 YRS (HISTORICAL) 01/27/2014 No Site <C> INFLUENZA, ADJUVANTED, QUADRIVAL* 12/17/2020 [facility]* INFLUENZA, HIGH-DOSE, QUADRIVALE* 01/24/2023 [facility] * INFLUENZA, HIGH-DOSE, TRIVALENT,* 01/29/2024 No Site INFLUENZA, SPLIT VIRUS, QUADRIVA* 01/13/2022 [facility]* INFLUENZA, SPLIT VIRUS, QUADRIVA* 12/19/2019 [facility] * INFLUENZA, SPLIT VIRUS, QUADRIVA* 01/21/2019 [facility] <C> INFLUENZA, SPLIT VIRUS, TRIVALEN* 12/29/2017 [facility] <C> INFLUENZA, SPLIT VIRUS, TRIVALEN* No Site PNEUMOCOCCAL CONJUGATE PCV 13 03/04/2016 [facility]* PNEUMOCOCCAL POLYSACCHARIDE PPV23 08/06/2018 [facility]* TDAP 12/13/2017 [facility] <C> ZOSTER (SHINGLES) (HISTORICAL) 03/17/2016 [facility] <C> ZOSTER RECOMBINANT 2 03/29/2021 [facility]* ZOSTER RECOMBINANT 1 12/19/2019 [facility] * CONTRAINDICATED No data available REFUSED ======= Immunization Date Facility Info COVID-19 (MODERNA), MRNA, LNP-S,* 06/[facility]/2022 [facility] <I> COVID-19 (MODERNA), MRNA, LNP-S,* 06/26/2024 [facility] <I> COVID-19 (MODERNA), MRNA, LNP-S,* 04/17/2024 [facility] <I> COVID-19 (MODERNA), MRNA, LNP-S,* 01/29/2024 No Site <I> INFLUENZA, UNSPECIFIED FORMULATI* 01/20/2023 [facility] <I> RSV, RECOMBINANT, PROTEIN SUBUNI* 06/26/2024 [facility] <I> RSV, RECOMBINANT, PROTEIN SUBUNI* 04/17/2024 [facility] <I> <C> See the Detailed Immunizations Health Summary Component[DIM] for Comments <I> See the Detailed Immunizations Health Summary Component[DIM] for Additional Information * Value is truncated; see the Detailed Immunizations Health Summary Component[DIM] for complete text RECENT IMAGING Include data from 08/17/2023 to 08/16/2024 08/16/2024 10:58 CONFIDENTIAL IMAGING REPORTS SUMMARY pg. 1 RICO KHAN [id number] : 1950 II - Imaging Impression (max 1 occurrence) Date Procedure CPT Status Case # 08/06/2024 CHEST (2 VIEWS) [id number] Verified 94 Mild fibrotic changes of the lungs and low lung volumes with no airspace disease process identified. If the outside report or images are provided, an addended report may be generated. Imaging follow-up should be as clinically indicated. IP - Imaging Profile 08/06/2024 CHEST (2 VIEWS) CPT Code: 69731 Interpreting Staff: BETTY BURT JR Exam Case Number: [id number] Exam Status: COMPLETE Rpt Status: VERIFIED Technologist: NEO SALCIDO Reason for Study: Recent pneumonia History: IDDM, Report: Study: PA and lateral chest x-ray. [...] Imaging follow-up should be as clinically indicated. DX Codes: No immediate attention required 02/07/2024 ULTRASOUND KIDNEYS CPT Code: 78904 ULTRASOUND URINARY BLADDER CPT Code: 56784 Interpreting Staff: RADIOLOGY,OUTSIDE Exam Case Number: [id number] Exam Status: COMPLETE Rpt Status: VERIFIED Technologist: SANDEEP MCWILLIAMS Reason for Study: worsening creatinine Report: ULTRASOUND KIDNEYS [PRINTSET], ULTRASOUND URINARY BLADDER [PRINTSET] Clinical History: Worsening creatinine Comparison: Renal ultrasound from May 05, 2015 Technique: Renal and bladder ultrasound was supervised and protocoled [place] facility and images have been sent to [place] national teleradiology program for interpretation Findings: A [...] evaluation by CT urogram. READING PHYSICIAN: Stephanie [id number] 02/07/2024 13:53 EST [facility] [phone] (For Medical Practitioner Use Only) Attention Patients / Veterans: If you have questions or concerns about these test results, please contact your ordering provider or primary care team. DX Codes: SIGNIFICANT ABNORMALITY, ATTN NEEDED 01/24/2023 KNEE 3 VIEWS (RIGHT) CPT Code: 38463 Interpreting Staff: BETTY BURT JR Exam Case Number: [id number] Exam Status: COMPLETE Rpt Status: VERIFIED Technologist: NEO SALCIDO Reason for Study: pain right knee Report: Study: AP weight-bearing, lateral and sunrise views of the right knee. Comparison: None. Findings: There is mild bilateral medial compartment joint space loss in the knees consistent with degenerative joint disease. The lateral joint compartments are preserved with vascular calcifications behind both knees. No bony fracture, dislocation or subluxation is identified. The right patella in the right patellofemoral joint space appear normal. No joint effusion is identified. Impression: Mild medial compartment degenerative osteoarthritic change in the knees, as described above. DX Codes: No immediate attention required 05/05/2015 ULTRASOUND KIDNEYS CPT Code: 53533 Interpreting Staff: OLIVE KEMP Exam Case Number: [id number] Exam Status: COMPLETE Rpt Status: VERIFIED Technologist: SANDEEP MCWILLIAMS Reason for Study: HTN controlled with 4 blood pressure medications Report: Exam: Renal ultrasound Comparison: None Findings: Right kidney measures 10.7 cm and left kidney measures 10.5 cm. There is no renal obstruction or suspicious renal lesion. Renal echogenicity is within normal limits. Impression: No abnormality of the kidneys DX Codes: No immediate attention required EKG RPT MEDS - Med (1 line) Summary No Procedure Data for the patient. EKG No data available for: CONSULT REPORT/EKG RECENT LABS Collection DT Spec WBC HGB HCT PLT K+/Pot Sodium HGBA1c 07/17/2024 11:14 BLOOD 10.23 11.6 L 34.4 L 292 07/17/2024 11:14 BLOOD 7.5 H 07/17/2024 11:14 SERUM 4.8 132 L 04/15/2024 10:03 BLOOD 8.6 H 04/15/2024 10:03 BLOOD 9.42 11.9 L 35.0 L 249 Collection DT Spec GLUCOSE CREATIN AST ALT T BILI ALK ENOCH CHOL 07/17/2024 11:14 SERUM 114 H 1.06 30 15 0.3 112 157 04/15/2024 10:03 SERUM 143 H 1.63 H 23 20 0.3 75 105 01/29/2024 11:08 SERUM 1.38 01/29/2024 11:08 SERUM 168 H 1.36 01/17/2024 09:39 SERUM 187 H 2.62 H 18 20 0.3 84 120 Collection DT Spec LDL-c HDL TRIG TSH B12 SR- VIT D25 HIV Ag/ 07/17/2024 11:14 SERUM 1.19 13.6 L 07/17/2024 11:14 SERUM 73 69 74 04/15/2024 10:03 SERUM 1.66 04/15/2024 10:03 SERUM 49 46 50 01/17/2024 09:39 SERUM 57 50 65 Collection DT Spec RBC/HPF 12/29/2014 10:05 URINE 0-5 LAB TRENDS CHEM 7 TREND LAB CUMULATIVE SELECTED Collection DT Spec GLUCOSE BUN CREATIN Sodium K+/Pot CL CO2 07/17/2024 11:14 SERUM 114 H 22 1.06 132 L 4.8 100 25 04/15/2024 10:03 SERUM 143 H 40 H 1.63 H 131 L 5.5 H 101 22 01/29/2024 11:08 SERUM 1.38 01/29/2024 11:08 SERUM 168 H 27 H 1.36 133 L 4.9 99 L 22 01/17/2024 09:39 SERUM 187 H 42 H 2.62 H 135 5.3 H 100 27 LAB CUMULATIVE SELECTED 2 No selection items chosen for this component. CHEM 7 Results Collection DT Spec Sodium K+/Pot CL CO2 GLUCOSE BUN 07/17/2024 11:14 SERUM 132 L 4.8 100 25 114 H 22 04/15/2024 10:03 SERUM 131 L 5.5 H [...] 4.6 95 L 29 111 H 20 CBC TREND Collection DT Spec WBC RBC HGB HCT MCV MCH PLT 07/17/2024 11:14 BLOOD 10.23 3.66 L 11.6 L 34.4 L 94.0 31.7 292 04/15/2024 10:03 BLOOD 9.42 3.73 L 11.9 L 35.0 L 93.8 31.9 249 01/17/2024 09:39 BLOOD 8.39 4.07 L 12.9 38.5 L 94.6 31.7 259 07/20/2023 09:14 BLOOD 8.74 3.78 L 11.7 L 35.7 L 94.4 31.0 259 05/15/2023 10:57 BLOOD 9.06 3.65 L 11.5 L 34.6 L 94.8 31.5 268 HEMOGLOBIN A1C TREND Collection DT Spec HGBA1c 07/17/2024 11:14 BLOOD 7.5 H 04/15/2024 10:03 BLOOD 8.6 H 12/05/2023 13:20 BLOOD 7.8 H 07/20/2023 09:14 BLOOD 7.2 H 05/15/2023 10:56 BLOOD 7.1 H LIPID PANEL TREND Collection DT Spec CHOL HDL CHO/HDL LDL-c TRIG 07/17/2024 11:14 SERUM 157 69 2.3 73 74 04/15/2024 10:03 SERUM 105 46 2.3 49 50 01/17/2024 09:39 SERUM 120 50 2.4 57 65 07/20/2023 09:14 SERUM 128 56 2.3 60 60 05/15/2023 10:56 SERUM 122 48 2.5 61 65 No data available for: ZZAST/SGOT,SENDOUT FMC BUN Collection DT Specimen Test Name Result Units Ref Range 07/17/2024 11:14 SERUM UREA NITROGEN 22 mg/dL 8 - 26 CREATININE Collection DT Specimen Test Name Result Units Ref Range 04/15/2024 10:03 URINE CREATININE URINE 47.09 mg/dL LIVER PANEL TREND Collection DT Spec AST ALT T BILI ALK ENOCH T. PROT ALBUMIN 07/17/2024 11:14 SERUM 30 15 0.3 112 7.5 3.4 04/15/2024 10:03 SERUM 23 20 0.3 75 7.1 3.5 01/17/2024 09:39 SERUM 18 20 0.3 84 7.0 3.5 07/20/2023 09:14 SERUM 24 22 0.4 71 6.9 3.6 05/15/2023 10:56 SERUM 76 PSA TREND Collection DT Spec PSA SR- 07/17/2024 11:14 SERUM 1.0 TESTOSTERONE No data available Collection DT Spec TSH 07/17/2024 11:14 SERUM 1.19 ANEMIA PANEL TREND Collection DT Spec B12 SR- Folate HCT Ferrit IRON TIBC 07/17/2024 11:14 SERUM 144.3 07/17/2024 11:14 BLOOD 34.4 L 07/17/2024 11:14 SERUM 76 268 04/15/2024 10:03 BLOOD 35.0 L 01/17/2024 09:39 BLOOD 38.5 L URINALYSIS TREND LAB CUMULATIVE SELECTED 1 Collection DT Spec Color APPEAR GlucUr Ketone Blood Protein 07/17/2024 11:14 SERUM [id number] 07/17/2024 11:14 BLOOD 4996450.359923 07/17/2024 11:14 BLOOD 4585887.216999 07/17/2024 11:14 SERUM [id number] 07/17/2024 11:14 SERUM 4121039.850300 LAB CUMULATIVE SELECTED 2 Collection DT Spec Biliru SpeGra UroBiln Nitrit Bacteri MucusUr 01/29/2024 11:08 URINE NEGATIVE 1.018 Normal NEGATIVE 10/26/2021 09:09 URINE Negative 1.006 L<2.0 Negative 12/08/2017 10:25 URINE Negative 1.006 LNormal Negative 12/29/2014 10:05 URINE Negative 1.014 L<2.0 Negative 1+ FEW 02/19/2014 00:10 URINE Negative 1.009 L<2.0 Negative LAB CUMULATIVE SELECTED 3 Collection DT Spec WBC/HPF RBC/HPF [place] 12/29/2014 10:05 URINE 6-10 H 0-5 ABUNDANT PATIENT DEMOGRAPHICS RICO KHAN Address: [address] [place] [address] [place] [address] County: [place] Marital Status: Age: 74 Orthodox: UNKNOWN/NO PREFERENCE Sex: MALE Occupation: [employer] Period of Service: ERA Branch of Service: Combat: POW: Eligibility: SC LESS THAN 50% Status: VERIFIED Means Test: NO LONGER REQUIRED NOK: MEREDITH KHAN Relation: [address] [facility] [place], [place] Patient Phone Numbers: Cell: No data available Home: Work: No data available Emergency Contact: Name: MEREDITH KHAN Relationship: Secondary Emergency Contact: Name: No data available Relationship: No data available Phone: No data available Secondary Next of Kin Contact Name: No data available Relationship: No data available Phone: No data available Insurance COB Subscriber ID Group [employer] Effective [employer] P [id number] APR 03, 2014 MEDICARE (WNR) P [id number] MAY 04, 2013 MEDICARE (WNR) P [id number] JAN 01, 2014 /kayla/ POLLO SLOAN ADVANCED HOTEL OFFICE MANAGER Signed: 08/16/2024 10:58 POLLO SLOAN August 16, 2024 10:58 AM ADMINISTRATIVE NOT E: LOCAL TITLE: ADMINISTRATIVE NOTE STANDARD TITLE: ADMINISTRATIVE NOTE DATE OF NOTE: AUGUST 16, 2024@10:58 ENTRY DATE: AUGUST 16, 2024@10:58:09 AUTHOR: DAVE SLOAN COSIGNER: URGENCY: STATUS: COMPLETED ADMINISTRATIVE NOTE Has ADDENDA RICO KHAN is a 74 yo MALE who is being sent to your Emergency Department for assessment and care. This has been authorized by TRESSA BOND ADDITIONAL NOTE/INFORMATION MAY FOLLOW Pt. has a history of: Active problems - Computerized Problem List is the source for the followin. Former smoker 2. Essential tremor 3. ARUNA - Iron deficiency anemia 4. Exposure to potentially hazardous substance ([facility] [id number]) 5. Osteoarthritis of right knee joint 6. [...] Outpatient Medications Status 1) ADHESIVE REMOVER SPRAY H#0635 SUFFICIENT AMOUNT TOPICALLY ACTIVE EVERY 10 DAYS [...] 14 DAYS Allergies: Patient has answered NKA RECENT VITAL SIGNS ======= Blood Pressure: 129/67 (08/16/2024 10:33) Pain: 9 (08/16/2024 10:33) Patient Height: 65 in [165.1 cm] (01/13/2022 10:17) Patient Weight: 120 lb [54.43 kg] (06/26/2024 10:34) Pulse: 100 (08/16/2024 10:33) Respiration: 18 (08/16/2024 10:33) Temperature: 98.4 F [36.9 C] (08/16/2024 10:33) Pulse Ox: Measurement DT POx (L/MIN)(%) 08/16/2024 10:33 97 ======= IMMUNIZATION HX PCE IMMUNIZATIONS ADMINISTERED Immunization Series Date Facility Reaction Info COVID-19 (MODERNA), MRNA, LNP-S,* 3 03/13/2021 [facility] <C> COVID-19 (MODERNA), MRNA, LNP-S,* 2 06/05/2020 Outside [facility]* COVID-19 (MODERNA), MRNA, LNP-S,* 1 05/08/2020 Outside H* FLU,3 YRS (HISTORICAL) 12/16/2016 [facility] <C> FLU,3 YRS (HISTORICAL) 02/01/2016 [facility] <C> FLU,3 YRS (HISTORICAL) 12/23/2014 [facility]* FLU,3 YRS (HISTORICAL) 01/27/2014 No Site <C> INFLUENZA, ADJUVANTED, QUADRIVAL* 12/17/2020 [facility]* INFLUENZA, HIGH-DOSE, QUADRIVALE* 01/24/2023 [facility] * INFLUENZA, HIGH-DOSE, TRIVALENT,* 01/29/2024 No Site INFLUENZA, SPLIT VIRUS, QUADRIVA* 01/13/2022 [facility]* INFLUENZA, SPLIT VIRUS, QUADRIVA* 12/19/2019 [facility] * INFLUENZA, SPLIT VIRUS, QUADRIVA* 01/21/2019 [facility]* <C> INFLUENZA, SPLIT VIRUS, TRIVALEN* 12/29/2017 [facility]* <C> INFLUENZA, SPLIT VIRUS, TRIVALEN* No Site PNEUMOCOCCAL CONJUGATE PCV 13 03/04/2016 [facility]* PNEUMOCOCCAL POLYSACCHARIDE PPV23 08/06/2018 [facility] TDAP 12/13/2017 [facility] <C> ZOSTER (SHINGLES) (HISTORICAL) 03/17/2016 [facility]* <C> ZOSTER RECOMBINANT 2 03/29/2021 [facility]* ZOSTER RECOMBINANT 1 12/19/2019 [facility] * CONTRAINDICATED No data available REFUSED ======= Immunization Date Facility Info COVID-19 (MODERNA), MRNA, LNP-S,* 06/14/2022 [facility] * <I> COVID-19 (MODERNA), MRNA, LNP-S,* 06/26/2024 [facility] <I> COVID-19 (MODERNA), MRNA, LNP-S,* 04/17/2024 [facility] <I> COVID-19 (MODERNA), MRNA, LNP-S,* 01/29/2024 No Site <I> INFLUENZA, UNSPECIFIED FORMULATI* 01/20/2023 [facility] <I> RSV, RECOMBINANT, PROTEIN SUBUNI* 06/26/2024 [facility] <I> RSV, RECOMBINANT, PROTEIN SUBUNI* 04/17/2024 [facility] <I> <C> See the Detailed Immunizations Health Summary Component[DIM] for Comments <I> See the Detailed Immunizations Health Summary Component[DIM] for Additional Information * Value is truncated; see the Detailed Immunizations Health Summary Component[DIM] for complete text RECENT IMAGING Include data from 08/17/2023 to 08/16/2024 08/16/2024 10:58 CONFIDENTIAL IMAGING REPORTS SUMMARY pg. 1 RICO KHAN [id number] : 1950 II - Imaging Impression (max 1 occurrence) Date Procedure CPT Status Case # 08/06/2024 CHEST (2 VIEWS) [id number] Verified 94 Mild fibrotic changes of the lungs and low lung volumes with no airspace disease process identified. If the outside report or images are provided, an addended report may be generated. Imaging follow-up should be as clinically indicated. IP - Imaging Profile 08/06/2024 CHEST (2 VIEWS) CPT Code: 42043 Interpreting Staff: BETTY BURT JR Exam Case Number: [id number] Exam Status: COMPLETE Rpt Status: VERIFIED Technologist: NEO SALCIDO Reason for Study: Recent pneumonia History: IDDM, Report: Study: PA and lateral chest x-ray. [...] Imaging follow-up should be as clinically indicated. DX Codes: No immediate attention required 02/07/2024 ULTRASOUND KIDNEYS CPT Code: 92470 ULTRASOUND URINARY BLADDER CPT Code: 60666 Interpreting Staff: RADIOLOGY,OUTSIDE Exam Case Number: [id number] Exam Status: COMPLETE Rpt Status: VERIFIED Technologist: SANDEEP MCWILLIAMS Reason for Study: worsening creatinine Report: ULTRASOUND KIDNEYS [PRINTSET], ULTRASOUND URINARY BLADDER [PRINTSET] Clinical History: Worsening creatinine Comparison: Renal ultrasound from May 05, 2015 Technique: Renal and bladder ultrasound was supervised and protocoled [place] and [place] [facility] for interpretation Findings: A [...] evaluation by CT urogram. READING PHYSICIAN: Stephanie [id number] 02/07/2024 13:53 EST [facility] T[facility] [phone] (For Medical Practitioner Use Only) Attention Patients / Veterans: If you have questions or concerns about these test results, please contact your ordering provider or primary care team. DX Codes: SIGNIFICANT ABNORMALITY, ATTN NEEDED 01/24/2023 KNEE 3 VIEWS (RIGHT) CPT Code: 38939 Interpreting Staff: BETTY BURT JR Exam Case Number: [id number] Exam Status: COMPLETE Rpt Status: VERIFIED Technologist: NEO SALCIDO Reason for Study: pain right knee Report: Study: AP weight-bearing, lateral and sunrise views of the right knee. Comparison: None. Findings: There is mild bilateral medial compartment joint space loss in the knees consistent with degenerative joint disease. The lateral joint compartments are preserved with vascular calcifications behind both knees. No bony fracture, dislocation or subluxation is identified. The right patella in the right patellofemoral joint space appear normal. No joint effusion is identified. Impression: Mild medial compartment degenerative osteoarthritic change in the knees, as described above. DX Codes: No immediate attention required 05/05/2015 ULTRASOUND KIDNEYS CPT Code: 54385 Interpreting Staff: OLIVE KEMP Exam Case Number: [id number] Exam Status: COMPLETE Rpt Status: VERIFIED Technologist: SANDEEP MCWILLIAMS Reason for Study: HTN controlled with 4 blood pressure medications Report: Exam: Renal ultrasound Comparison: None Findings: Right kidney measures 10.7 cm and left kidney measures 10.5 cm. There is no renal obstruction or suspicious renal lesion. Renal echogenicity is within normal limits. Impression: No abnormality of the kidneys DX Codes: No immediate attention required EKG RPT MEDS - Med (1 line) Summary No Procedure Data for the patient. EKG No data available for: CONSULT REPORT/EKG RECENT LABS Collection DT Spec WBC HGB HCT PLT K+/Pot Sodium HGBA1c 07/17/2024 11:14 BLOOD 10.23 11.6 L 34.4 L 292 07/17/2024 11:14 BLOOD 7.5 H 07/17/2024 11:14 SERUM 4.8 132 L 04/15/2024 10:03 BLOOD 8.6 H 04/15/2024 10:03 BLOOD 9.42 11.9 L 35.0 L 249 Collection DT Spec GLUCOSE CREATIN AST ALT T BILI ALK ENOCH CHOL 07/17/2024 11:14 SERUM 114 H 1.06 30 15 0.3 112 157 04/15/2024 10:03 SERUM 143 H 1.63 H 23 20 0.3 75 105 01/29/2024 11:08 SERUM 1.38 01/29/2024 11:08 SERUM 168 H 1.36 01/17/2024 09:39 SERUM 187 H 2.62 H 18 20 0.3 84 120 Collection DT Spec LDL-c HDL TRIG TSH B12 SR- VIT D25 HIV Ag/ 07/17/2024 11:14 SERUM 1.19 13.6 L 07/17/2024 11:14 SERUM 73 69 74 04/15/2024 10:03 SERUM 1.66 04/15/2024 10:03 SERUM 49 46 50 01/17/2024 09:39 SERUM 57 50 65 Collection DT Spec RBC/HPF 12/29/2014 10:05 URINE 0-5 LAB TRENDS CHEM 7 TREND LAB CUMULATIVE SELECTED Collection DT Spec GLUCOSE BUN CREATIN Sodium K+/Pot CL CO2 07/17/2024 11:14 SERUM 114 H 22 1.06 132 L 4.8 100 25 04/15/2024 10:03 SERUM 143 H 40 H 1.63 H 131 L 5.5 H 101 22 01/29/2024 11:08 SERUM 1.38 01/29/2024 11:08 SERUM 168 H 27 H 1.36 133 L 4.9 99 L 22 01/17/2024 09:39 SERUM 187 H 42 H 2.62 H 135 5.3 H 100 27 LAB CUMULATIVE SELECTED 2 No selection items chosen for this component. CHEM 7 Results Collection DT Spec Sodium K+/Pot CL CO2 GLUCOSE BUN 07/17/2024 11:14 SERUM 132 L 4.8 100 25 114 H 22 04/15/2024 10:03 SERUM 131 L 5.5 H [...] 4.6 95 L 29 111 H 20 CBC TREND Collection DT Spec WBC RBC HGB HCT MCV MCH PLT 07/17/2024 11:14 BLOOD 10.23 3.66 L 11.6 L 34.4 L 94.0 31.7 292 04/15/2024 10:03 BLOOD 9.42 3.73 L 11.9 L 35.0 L 93.8 31.9 249 01/17/2024 09:39 BLOOD 8.39 4.07 L 12.9 38.5 L 94.6 31.7 259 07/20/2023 09:14 BLOOD 8.74 3.78 L 11.7 L 35.7 L 94.4 31.0 259 05/15/2023 10:57 BLOOD 9.06 3.65 L 11.5 L 34.6 L 94.8 31.5 268 HEMOGLOBIN A1C TREND Collection DT Spec HGBA1c 07/17/2024 11:14 BLOOD 7.5 H 04/15/2024 10:03 BLOOD 8.6 H 12/05/2023 13:20 BLOOD 7.8 H 07/20/2023 09:14 BLOOD 7.2 H 05/15/2023 10:56 BLOOD 7.1 H LIPID PANEL TREND Collection DT Spec CHOL HDL CHO/HDL LDL-c TRIG 07/17/2024 11:14 SERUM 157 69 2.3 73 74 04/15/2024 10:03 SERUM 105 46 2.3 49 50 01/17/2024 09:39 SERUM 120 50 2.4 57 65 07/20/2023 09:14 SERUM 128 56 2.3 60 60 05/15/2023 10:56 SERUM 122 48 2.5 61 65 No data available for: ZZAST/SGOT,SENDOUT FMC BUN Collection DT Specimen Test Name Result Units Ref Range 07/17/2024 11:14 SERUM UREA NITROGEN 22 mg/dL 8 - 26 CREATININE Collection DT Specimen Test Name Result Units Ref Range 04/15/2024 10:03 URINE CREATININE URINE 47.09 mg/dL LIVER PANEL TREND Collection DT Spec AST ALT T BILI ALK ENOCH T. PROT ALBUMIN 07/17/2024 11:14 SERUM 30 15 0.3 112 7.5 3.4 04/15/2024 10:03 SERUM 23 20 0.3 75 7.1 3.5 01/17/2024 09:39 SERUM 18 20 0.3 84 7.0 3.5 07/20/2023 09:14 SERUM 24 22 0.4 71 6.9 3.6 05/15/2023 10:56 SERUM 76 PSA TREND Collection DT Spec PSA SR- 07/17/2024 11:14 SERUM 1.0 TESTOSTERONE No data available Collection DT Spec TSH 07/17/2024 11:14 SERUM 1.19 ANEMIA PANEL TREND Collection DT Spec B12 SR- Folate HCT Ferrit IRON TIBC 07/17/2024 11:14 SERUM 144.3 07/17/2024 11:14 BLOOD 34.4 L 07/17/2024 11:14 SERUM 76 268 04/15/2024 10:03 BLOOD 35.0 L 01/17/2024 09:39 BLOOD 38.5 L URINALYSIS TREND LAB CUMULATIVE SELECTED 1 Collection DT Spec Color APPEAR GlucUr Ketone Blood Protein 07/17/2024 11:14 SERUM [id number] 07/17/2024 11:14 BLOOD [id number] 07/17/2024 11:14 BLOOD [id number] 07/17/2024 11:14 SERUM [id number] 07/17/2024 11:14 SERUM [id number] LAB CUMULATIVE SELECTED 2 Collection DT Spec Biliru SpeGra UroBiln Nitrit Bacteri MucusUr 01/29/2024 11:08 URINE NEGATIVE 1.018 Normal NEGATIVE 10/26/2021 09:09 URINE Negative 1.006 L<2.0 Negative 12/08/2017 10:25 URINE Negative 1.006 LNormal Negative 12/29/2014 10:05 URINE Negative 1.014 L<2.0 Negative 1+ FEW 02/19/2014 00:10 URINE Negative 1.009 L<2.0 Negative LAB CUMULATIVE SELECTED 3 Collection DT Spec WBC/HPF RBC/HPF [place] 12/29/2014 10:05 URINE 6-10 H 0-5 ABUNDANT PATIENT DEMOGRAPHICS RICO BARTHOLOMEW NEILSHANA Address: [address] [place] [address] [place] [address] County: [place] Marital Status: Age: 74 Orthodox: UNKNOWN/NO PREFERENCE Sex: MALE Occupation: [employer] Period of Service: ERA Branch of Service: Combat: POW: Eligibility: SC LESS THAN 50% Status: VERIFIED Means Test: NO LONGER REQUIRED NOK: MEREDITH KHAN Relation: [address] [facility] [place], [place] Patient Phone Numbers: Cell: No data available Home: Work: No data available Emergency Contact: Name: MEREDITH KHAN Relationship: Secondary Emergency Contact: Name: No data available Relationship: No data available Phone: No data available Secondary Next of Kin Contact Name: No data available Relationship: No data available Phone: No data available Insurance COB Subscriber ID Group Velez Effective [employer] P [id number] APR 03, 2014 MEDICARE (WNR) P [id number] MAY 04, 2013 MEDICARE (WNR) P [id number] JAN 01, 2014 /kayla/ [employer] OFFICE MANAGER Signed: 08/16/2024 10:58 08/16/2024 ADDENDUM STATUS: COMPLETED THIS REGISTERED ROUTE ASSOCIATE FAXED THIS NOTE TO [facility] ER PER SPR SICK CALL RN. /kayla/ [employer] OFFICE MANAGER Signed: 08/16/2024 11:12 Receipt Acknowledged By: * AWAITING SIGNATURE * CHON URBAN SHARI K [place]
[2024-09-11 12:50] VITALS: BMI 21.0
--- NOTE | 2024-09-12 09:33 | P.CONAN_ITS ---
Documented by User: Ann Miller NP 09/12/24 09:36 HPI - Anesthesia Eval Consult details Narrative: 74yo M for Right Repair Hernia Inguinal Reducible with mesh [facility] ED 09/04/24 for critical K and Mg. On PO Mg supplement. ED provider felt false high K. Will repeat DOS Anesthesia Pre-Procedure Meds Is the patient on any of the following meds?: GLP1/DPP4 PMFSH Active Problems Active Problems: All Active Problems Hyponatremia (Acute) Right inguinal hernia (Acute) Hilar adenopathy (Acute) Elevated LFTs (Acute) Metabolic acidosis (Acute) Diarrhea (Acute) Sepsis (Acute) Cholelithiasis (Acute) Inguinal hernia (Acute) MOISES (acute kidney injury) (Acute) Hypomagnesemia (Acute) Acute hyponatremia (Acute) Pneumonia (Acute) Past Medical History Medical History Peripheral neuropathy Diabetes Hyperlipidemia HTN (hypertension) Surgical History Surgical History History of colonoscopy Social History Social History Household Members: Family Housing: House Do you presently have visiting nurse or other home services: No Alcohol intake: never Comment: uses a walking stick Patient Tobacco Use Status: Former Tobacco user Tobacco use type: Cigar Cigarettes Per Day: 1 Smoked in Last 30 Days: No Second Hand Smoke Exposure: No Use of substances other than those prescribed or required for medical reasons: No Have you been hit, kicked, punched, or otherwise hurt by someone within the past year? If so, by whom?: No Are you DNR?: No Advance Directives: No Advance Directives Information Provided: Yes Advance Directives Date on File: 06/21/24 service: Yes Meds Allergies Allergy/AdvReac Type Severity Reaction Status Date / Time No Known Allergies Allergy Verified 09/13/24 08:52 Home Medications ?Medication ?Instructions ?Recorded ?Confirmed ?Last Taken ?Type ferrous sulfate 325 mg (65 mg 325 mg PO DAILY 01/22/20 09/13/24 08/14/24 History iron) tablet primidone 50 mg tablet 50 mg PO BEDTIME 01/22/20 09/13/24 08/15/24 History amlodipine 5 mg tablet 5 mg PO DAILY 06/17/24 09/13/24 09/13/24 06:45 History atorvastatin 80 mg tablet 80 mg PO DAILY 06/17/24 09/13/24 08/14/24 History ezetimibe 10 mg tablet 10 mg PO DAILY 06/17/24 09/13/24 08/14/24 History gabapentin 300 mg capsule 300 mg PO TID 06/17/24 09/13/24 08/14/24 History glucose 4 gram chewable tablet 16 g PO NEEDED PRN Low Blood 06/17/24 09/13/24 06/15/24 History Sugar insulin glargine-yfgn 100 unit/mL 8 unit subcut BEDTIME 06/17/24 09/13/24 08/14/24 History (3 mL) subcutaneous pen omeprazole 20 mg capsule,delayed 20 mg PO DAILY@0630 06/17/24 09/13/24 09/13/24 06:45 History release sitagliptin 100 mg tablet 100 mg PO DAILY 07/12/24 09/13/24 09/10/24 History lisinopril 10 mg tablet 10 mg PO DAILY 08/16/24 09/13/24 09/13/24 06:45 History Exam Height,Weight and Vital Signs: Height 5 ft 5 in Weight 57.153 kg Pertinent Lab Results Pertinent Lab Results: Laboratory Tests 09/04/24 18:09 WBC 7.5 Hgb 10.3 L Hct 29.7 L Plt Count 246 Sodium 133 L Potassium 5.0 Chloride 103 Carbon Dioxide 25 BUN 22 H Creatinine 1.37 Narrative Narrative: EKG 09/2024 Vent. Rate : 94 BPM Atrial Rate : 94 BPM P-R Int : 166 ms QRS Dur : 80 ms QT Int : 322 ms P-R-T Axes : 51 39 64 degrees QTcB Int : 402 ms Normal sinus rhythm with sinus arrhythmia Normal ECG When compared with ECG of 16-Jun-2024 14:25, No significant change was found Assessment and Plan Assessment Anesthesia Assessment: Chart Reviewed Documented by User: Yefri Barahona MD 09/13/24 09:43 [facility] Past Medical History Medical History Peripheral neuropathy Diabetes Hyperlipidemia HTN (hypertension) Functional capacity: independent ambulation Family History Family history of problems with anesthesia: No Surgical History Surgical History History of colonoscopy Social History Social History Household Members: Family Housing: House Do you presently have visiting nurse or other home services: No Alcohol intake: never Comment: uses a walking stick Patient Tobacco Use Status: Former Tobacco user Tobacco use type: Cigar Cigarettes Per Day: 1 Smoked in Last 30 Days: No Second Hand Smoke Exposure: No Use of substances other than those prescribed or required for medical reasons: No Have you been hit, kicked, punched, or otherwise hurt by someone within the past year? If so, by whom?: No Are you DNR?: No Advance Directives: No Advance Directives Information Provided: Yes Advance Directives Date on File: 06/21/24 service: Yes Meds Allergies Allergy/AdvReac Type Severity Reaction Status Date / Time No Known Allergies Allergy Verified 09/13/24 08:52 Home Medications ?Medication ?Instructions ?Recorded ?Confirmed ?Last Taken ?Type ferrous sulfate 325 mg (65 mg 325 mg PO DAILY 01/22/20 09/13/24 08/14/24 History iron) tablet primidone 50 mg tablet 50 mg PO BEDTIME 01/22/20 09/13/24 08/15/24 History amlodipine 5 mg tablet 5 mg PO DAILY 06/17/24 09/13/24 09/13/24 06:45 History atorvastatin 80 mg tablet 80 mg PO DAILY 06/17/24 09/13/24 08/14/24 History ezetimibe 10 mg tablet 10 mg PO DAILY 06/17/24 09/13/24 08/14/24 History gabapentin 300 mg capsule 300 mg PO TID 06/17/24 09/13/24 08/14/24 History glucose 4 gram chewable tablet 16 g PO NEEDED PRN Low Blood 06/17/24 09/13/24 06/15/24 History Sugar insulin glargine-yfgn 100 unit/mL 8 unit subcut BEDTIME 06/17/24 09/13/24 08/14/24 History (3 mL) subcutaneous pen omeprazole 20 mg capsule,delayed 20 mg PO DAILY@0630 06/17/24 09/13/24 09/13/24 06:45 History release sitagliptin 100 mg tablet 100 mg PO DAILY 07/12/24 09/13/24 09/10/24 History lisinopril 10 mg tablet 10 mg PO DAILY 08/16/24 09/13/24 09/13/24 06:45 History Exam Exam Date and Time: 09/13/2024 Airway Mallampati Class: II TM Dist: >3cm Neck ROM: Full Loose/Missing/Broken Teeth: Yes Heart: rrr Lungs: cta Assessment and Plan Final Anesthetic Review Family History of Problems with Anesthesia: No NPO: Yes ASA Class: II Final Preanesthetic Review: No Changes in Pt Med Stat, Meds/Allgs Chart Reviewed, Consent Obtained/Reviewed and Anes Risks/Benef Reviewed Patient Risk: Intermediate Procedure Risk: Low Anesthetic Plan Anesthetic Plan: GA Disposition: Standard PACU
[2024-09-13] VITALS (8 sets, daily range): BP systolic 139–175; BP diastolic 66–84; PULSE 79–94; RESP 11–20; TEMP 36.6–37.1; O2SAT 95–100; BMI 20.1
[2024-09-13] MEDS: Lactated Ringers 1,000 ML 100 ML IVCONT (08:45)
--- NOTE | 2024-09-13 09:27 | MHC.SHP ---
Pre-Procedural Eval Section A - 24 Hr Update-Section A only Date of Service: 09/13/24 Section B - Complete if H&P > 30 days Chief Complaint: Unilateral inguinal hernia, without obstruction Details of Present Illness: Reducible right inguinal hernia Relevant Family History (Specify if Yes): No Relevant Social History: None Present Medications: see Short Stay Collaborative assessment (Hyperlipidemia, GERD, hypertension) Medical History: No relevant PMH Allergies: Allergies Allergy/AdvReac Type Severity Reaction Status Date / Time No Known Allergies Allergy Verified 09/13/24 08:52 Review of Systems Sugical H&P ROS: Negative: Constitution, Cardiovascular and Respiratory Exam Surgical H&P Exam: Normal: Heart and Normal: Lungs and Significant Findings: Abdomen (Reducible right inguinal hernia) Plan Diagnosis/Plan: Unchanged I have reviewed the history and physical and performed a pertinent physical examination on my patient. No changes have occurred unless specified. Time Spent With Patient Time: Total time managing care of this patient today ____ minutes.
[2024-09-13 09:49] LABS: Anion Gap 9 (12-20); Carbon Dioxide 27 mmol/L (22-29); Chloride 105 mmol/L (96-108); Magnesium 1.4 mg/dL (1.6-2.6); Potassium 4.5 mmol/L (3.3-5.1); Sodium 136 mmol/L (135-145)
[2024-09-13] MEDS: ceFAZolin Sodium/Dextrose,Iso 2 GM/50 ML PIGGYBACK IV (10:00)
[2024-09-13] MEDS: Magnesium Sulfate/D5W 1 GM/100 ML PIGGYBACK IV (10:32)
[2024-09-13 10:43] LABS: Glucose, Whole Blood 162 mg/dL (60-115)
--- NOTE | 2024-09-13 10:51 | W.PM.OPN ---
Operative Note Operative Note Date of Service: 09/13/24 Narrative: Preop diagnosis: Large reducible right inguinal hernia Postop diagnosis: Large reducible right inguinal hernia, indirect Procedure: Repair of a large reducible right inguinal hernia with mesh Surgeon: Brian Armenta MD catering assistant: REGINO Denis The patient is a 70-year-old male with a large reducible mass on the right groin consistent with a an inguinal hernia. On CAT scan, there was note of cecum involved. The hernia was easily reducible He understood the technique of the planned repair as well as the risks, benefits, and alternatives He was brought to the operating room. He was placed supine under general anesthesia via laryngeal mask airway. The right groin was prepped and draped in the usual sterile fashion. A surgical time-out was done. The patient received cefazolin 2 g IV preoperatively I infiltrated the planned line of incision with lidocaine 1%. I made the short incision along an imaginary line from the anterior superior iliac spine to the pubic ramus with a blade 15. This carried down through the full-thickness of the skin and subcutaneous fat electrocautery. I then for anesthesia to bluntly dissect the aponeurosis to define the external ring. Once this was achieved, I made an incision on the external oblique aponeurosis and extended this inferomedially with electrocautery to connect with the external ring. The inguinal canal was therefore entered. I applied hemostasis on the divided edges of the aponeurosis. I did blunt dissection to a pocket underneath the aponeurosis for the mesh. I then proceeded to identify the spermatic cord and its contents. I did blunt dissection with the index finger to dissect around this and pass a Sue drain. The Sue drain was used for retraction I define the spermatic cord by carefully dividing the ligamentous attachments and adhesions. I was able to identify the vas deferens and the accompanying vessels and these were protected during the dissection. A large hernia, indirect was seen and I proceeded to gently separate this from the rest of the cord contents. The hernia contained only fat at this point. I proceeded to continued to separate the hernia the rest of the cord contents until was able to reduce this with a large defect in the internal ring. This has were for an indirect hernia I reinforced the internal ring with an extra-large Prolene plug. I secured the plug through the shelving edge of the inguinal meant laterally and the internal oblique superiorly and medially using the inner leaves of the plug with Prolene 2 sutures I then reinforced the entire floor of the canal with a keyhole mesh. The tails of the mesh were passed around the cord at the level of the internal ring and were secured together with Prolene 2 sutures. I secured the mesh laterally to the shelving edge of the inguinal ligament, medially to the internal oblique and into the pubic ramus inferomedially with Prolene 2 sutures. The mesh was therefore flattened I irrigated. There was note of good hemostasis. I then reapposed the divided external oblique aponeurosis over the mesh with a running Prolene 2-0 Polysorb stitch to re-create the external ring The umbilical tape was removed I closed the subcutaneous layer with multiple Polysorb 3-0 simple interrupted sutures. Skin closure was achieved with Polysorb 4-0 subcuticular running stitch. The incision was infiltrated with Marcaine 0.5% for postop analgesia Dressings were applied and the procedure was completed The patient tolerated the procedure well. There were no immediate complications. Initial and final counts of sponges and instruments were correct. Estimated blood loss was less than 10 cc The patient is extubated without difficulty and transferred to the recovery room with stable vital signs.
[2024-09-13] MEDS: fentaNYL citrate/PF 100 MCG/2 ML VIAL 25 MCG IVPUSH ×4 (11:15→11:30)
[2024-09-13 11:39] LABS: Glucose, Whole Blood 201 mg/dL (60-115)
== END 2024-09-13 12:35 | disposition home or self-care (01) ==
PROVIDERS: Nurse Practitioner; PCP General Practice; Visit Provider Surgery
PROC: (CPT 49505; principal; 2024-09-13 10:40)
DX: K40.90 Unilateral inguinal hernia, without obstruction or gangrene, not specified as recurrent (principal); H54.8 Legal blindness, as defined in USA; I10 Essential (primary) hypertension; G62.9 Polyneuropathy, unspecified; E11.9 Type 2 diabetes mellitus without complications; E78.5 Hyperlipidemia, unspecified; Z79.51 Long term (current) use of inhaled steroids; Z79.4 Long term (current) use of insulin; Z99.89 Dependence on other enabling machines and devices; Z79.899 Other long term (current) drug therapy; Z87.891 Personal history of nicotine dependence
CPT/HCPCS: 49505; 36415; 80051; 82947; 83735; C1781; J0690; J2003; J2405; J2704; J2795; J3010; J3475

== ENCOUNTER → 2024-09-13 07:49 | Outpatient (BNV) | payer OTHER, SELFPAY | PROVIDERS: PCP General Practice; Visit Provider Surgery | DX: K40.90 Unilateral inguinal hernia, without obstruction or gangrene, not specified as recurrent (principal) | CPT/HCPCS: 49505 ==

== ENCOUNTER 2024-09-18 14:11 | Outpatient (REF) | payer OTHER, SELFPAY ==
[2024-09-18 18:19] LABS: Anion Gap 11 (12-20); Blood Urea Nitrogen 19 mg/dL (9-16); Calcium 9.1 mg/dL (8.4-10.2); Carbon Dioxide 27 mmol/L (22-29); Chloride 99 mmol/L (96-108); Estimated Glomerular Filt Rate > 60; Glucose Random 280 mg/dL (60-115); Potassium 4.7 mmol/L (3.3-5.1); Sodium 132 mmol/L (135-145)
== END 2024-09-18 14:12 | disposition home or self-care (01) ==
LOC: HO.HKASLDS 14:11
PROVIDERS: Visit Provider Internal Medicine Hypertension Specialist
DX: E87.1 Hypo-osmolality and hyponatremia (principal)
CPT/HCPCS: 36415; 80048

== ENCOUNTER 2024-09-25 11:11 | Outpatient (AMB) | payer OTHER, SELFPAY ==
[2024-09-25 11:23] VITALS: BP 170/86; PULSE 93; O2SAT 83; BMI 20.6
--- NOTE | 2024-09-25 11:23 | HO.NEPHOV_ITS ---
Vital Signs 09/25/24 11:23 09/25/24 11:41 Height 5 ft 5 in Weight 124 lb BMI 20.6 BP 170/86 H 150/70 H Blood Pressure Location Lt brachial Lt brachial Position Sitting Sitting Pulse 93 Pulse Source Pulse Oximeter Pulse Oximetry (%) 83 L Oxygen Delivery Method Room Air Intake Visit Reasons: FU / CONF Cover Assembler Required: No Accompanied by: Self / Same As Patient Allergies No Known Allergies Allergy (Verified 09/25/24 11:27) Medication List - Last Reconciled 09/25/24 by Bernardo Tyson MD amlodipine 5 mg PO DAILY atorvastatin 80 mg PO DAILY ezetimibe 10 mg PO DAILY ferrous sulfate 325 mg PO DAILY gabapentin 300 mg PO TID glucose 16 grams PO NEEDED PRN ibuprofen 600 mg PO Q6H PRN insulin glargine-yfgn 8 units subcut BEDTIME lisinopril 10 mg PO DAILY magnesium oxide 400 mg PO BID omeprazole 20 mg PO DAILY@0630 oxycodone 5 mg PO Q4H PRN oxycodone 5 mg PO Q4H PRN primidone 50 mg PO BEDTIME sitagliptin 100 mg PO DAILY tamsulosin (Flomax) 0.4 mg PO BEDTIME HPI Comments Details: 74-year-old male with a past medical history significant for insulin-dependent diabetes, HTN, ARUNA, HLD, tremor, reported to the ED due to dizziness, congestion, tactile fever and diarrhea for the past week. reports he has not been able to eat or drink much at all for the past few days. His has also been experiencing diarrhea. He denies any chest pain, shortness of breath or abdominal pain. No urinary symptoms including hematuria, dysuria or frequency. 09/25/24 Recently hospitalized for pneumonia and dog bite Feels better now BP seems elevated in medical office setting [facility] Medical History Peripheral neuropathy Diabetes Hyperlipidemia HTN (hypertension) Surgical History History of colonoscopy Social History Household Members: Family Housing: House Do you presently have visiting nurse or other home services: No Alcohol intake: never Comment: uses a walking stick Patient Tobacco Use Status: Former Tobacco user Tobacco use type: Cigar Cigarettes Per Day: 1 Second Hand Smoke Exposure: No Advance Directives Date on File: 06/21/24 service: Yes Physical Exam Vital Signs: Last Vital Signs Pulse 93 09/25/24 11:23 BP 150/70 H 09/25/24 11:41 Pulse Ox 83 L 09/25/24 11:23 Oxygen Delivery Method Room Air 09/25/24 11:23 BMI result Body Mass Index 20.6 Comfortable Neck supple no JVD. Lungs entry equal no rales. Heart S1-S2 heard no gallop or rub. Abdomen soft nontender. Neuro alert awake oriented. No asterixis. Extremities no edema. Results Reviewed Nephrology Results: Hgb, (14.0-18.0) 10.3 g/dl L 09/04/24 WBC, (4.8-10.8) 7.5 X10*3/uL 09/04/24 Plt Count, (160-400) 246 X10*3/uL 09/04/24 Sodium, (135-145) 132 mmol/L L 09/18/24 Potassium, (3.3-5.1) 4.7 mmol/L 09/18/24 Chloride, (96-108) 99 mmol/L 09/18/24 Carbon Dioxide, (22-29) 27 mmol/L 09/18/24 BUN, (9-16) 19 mg/dL H 09/18/24 Creatinine, (0.5-1.4) 1.08 mg/dL 09/18/24 Calcium, (8.4-10.2) 9.1 mg/dL 09/18/24 Assessment & Plan Assessment & Plan (1) Acute hyponatremia: Code(s): E87.1 - Hypo-osmolality and hyponatremia Category: Medical Plan MOISES due to hypoperfusion. Renal function is improved and creatinine is back to baseline to around 1.1 mg/dL. Chronic hyponatremia due to excessive free water intake. Recent pNA is 132 He has non osmotic ADH release. Discussed importance of oral free water restriction. Recheck serum sodium PRN Coding Level of Care Code Est Pt Level 4 (08368) Diagnoses Acute hyponatremia E87.1
[2024-09-25 11:41] VITALS: BP 150/70
== END 2024-09-25 12:24 | disposition home or self-care (01) ==
LOC: HO.HKAS 11:12
PROVIDERS: Visit Provider Internal Medicine Hypertension Specialist
DX: E87.1 Hypo-osmolality and hyponatremia (principal)
CPT/HCPCS: 99214

== ENCOUNTER → 2024-09-25 11:11 | Outpatient (BNVA) | payer OTHER, SELFPAY | PROVIDERS: Visit Provider Internal Medicine Hypertension Specialist | DX: E87.1 Hypo-osmolality and hyponatremia (principal) | CPT/HCPCS: 99212 ==

== ENCOUNTER 2024-09-30 10:32 | Outpatient (AMB) | payer OTHER, SELFPAY ==
--- OUTSIDE RECORDS SUMMARY | 2024-09-27 06:00 | XMS_ITS ---
[place] GROUP THERAPEUTIC PROCEDURES [place] [facility] [place] [facility] Encounter Summary Created on: September 30, 2024 R[place] KHAN : 1950 Sex: Male Author Name [facility] [place] [facility] [place] [facility] [place] [facility] [place] [address] [place] [id number] Care Team Providers Care Taker Off Drying Kiln Name Role Phone TRESSA BOND Primary Care [...] PART B Jan 01, 2014 PART B [id number] PARISH KHAN PATIENT MEDICARE (WNR) MEDICARE (M) PART B Jan 01, 2014 PART B [id number] PARISH KHAN PATIENT MEDICARE (WNR) MEDICARE (M) PART A May 04, 2013 PART A [id number] PARISH KHAN PATIENT MEDICARE (WNR) MEDICARE (M) PART A May 04, 2013 PART A [id number] PARISH KHAN PATIENT [facility] (WNR) MEDICARE ADVANTAGE [facility] ([facility] Apr 03, 2016 [facility] ([facility]) [id number] [phone] NEILAL,PARISH REAL PATIENT Selected Encounter This section includes the information on record at [place] for the Encounter. Date/Time Encounter Type Encounter Description Reason Provider Source Sep 27, 2024 10:00 AM GROUP THERAPEUTIC PROCEDURES [facility] (BLIND REHAB O/P SPEC) ICD-10-CM H54.8 Legal blindness, as defined in [place] CARINA LENNON [facility] Encounter Template Text not used by [place] Assessments - Encounter Diagnoses This section includes the primary and secondary diagnoses documented for the Encounter. 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 Plan of Treatment: Future Appointments (+ 6 months) and Future Tests (+/- 45 days) The Plan of Treatment section includes future care activities for the patient from all [place] treatmentfacilities. This section includes future appointments and future orders which are active, pending or scheduled. Future Appointments This section includes appointments that were scheduled to occur 6 months from the date of the Encounter, up to a maximum of 20 appointments. The data comes from all [place] treatment facilities. Appointment Date/Time Appointment Type Appointme nt Facility Name Oct 01, 2024 03:30 PM AMBULATORY [place]ICINE [place] [facility] [place] [facility] Oct 02, 2024 10:30 AM [facility] Oct 16, 2024 10:00 AM [facility] Nov 11, 2024 10:00 AM AMBULATORY - [place]IN [place] [facility] [place] [facility] Nov 18, 2024 10:00 AM AMBULATORY - [place]IN [place] [facility] [place] [facility] Nov 27, 2024 10:00 AM AMBULATORY - REHAB [place]IN [place] [facility] [place] [facility] Dec 25, 2024 11:00 AM AMBULATORY - MEDICINE [place] [place] Jan 24, 2025 10:00 AM [facility] Lab Results: +/- 30 days of the encounter This section includes the Chemistry and Hematology Lab Results on record with [place] for the patient. Radiology Reports and Pathology Reports are provided separately, in subsequent sections. Lab Results This section contains the Chemistry/Hematology Results that were resulted 30 days before or 30 daysafter the date of the Encounter. Date/Time Source Result Type Result - Unit Interpretation Reference Range Specimen Type Comment Sep 18, 2024 10:18 AM [facility] TSH SERUM Specimen Type: SERUM No comment entered. Ordering Provider: JAYDEN BOND Report Released Date/Time: Sep 12, 2024 08:55 AM Reporting Lab: [facility] [address] [facility] [address] Performing Lab: [facility] [address] [address] TSH 0.81 u[IU]/mL 0.35-4.94 Sep 18, 2024 10:18 AM [facility] HEMOGLOBIN A1C PANEL BLOOD Specimen T ype: BLOOD Comment: Values obtained from A1C measurements can vary. For atypical A1C assays, a reported value of 7.0 could actually be between 6.72 and 7.28 if measured by a reference method. A reported value of 9.0 could actually be between 8.73 and 9.27. Ref: http://www.ngsp.org/CAPdata.asp Ordering Provider: TRESSA BOND Report Released Date/Time: Sep 12, 2024 08:55 AM Reporting Lab: [facility] [address] [address] Performing Lab: [facility] [address] [address] HEMOGLOBIN A1C 7.3 H 4.0-5.6 Sep 18, 2024 10:18 AM [facility] LIPID PANEL FASTING SERUM Specimen Ty pe: SERUM No comment entered. Ordering Provider: TRESSA BOND Report Released Date/Time: Sep 12, 2024 08:55 AM Reporting Lab: [facility] [address] [address] Performing Lab: [facility] [address] [address] CHOLESTEROL 143 mg/dL TRIGLYCERIDE 50 mg/dL 0-150 LDL calculated 69 mg/dL 0-129 CHOL/HDL 2.2 HDL CHOLESTEROL 64 mg/dL >40 Sep 18, 2024 10:18 AM [facility] LIVER FUNCTION SERUM Specimen Type: SERUM No comment entered. Ordering Provider: TRESSA BOND Report Released Date/Time: Sep 12, 2024 08:55 AM Reporting Lab: [address] [address] Performing Lab: [address] [address] PROTEIN,TOTAL 7.1 g/dL 6.4-8.3 ALBUMIN 3.5 g/dL 3.2-4.6 ALKALINE PHOSPHATASE 97 U/L 40-150 AST 29 U/L 5-34 ALT 19 U/L 0-55 BILIRUBIN, TOTAL 0.3 mg/dL 0.2-1.2 Sep 18, 2024 10:18 AM [facility] BASIC METABOLIC PANEL (fasting) SERUM Specimen Type: SERUM No comment entered. Ordering Provider: TRESSA BOND Report Released Date/Time: Sep 12, 2024 08:55 AM Reporting Lab: [address] [address] Performing Lab: [address] [address] UREA NITROGEN 22 mg/dL 8-26 GLUCOSE 259 mg/dL H 65-100 SODIUM 128 mmol/L L 136-145 POTASSIUM 4.6 mmol/L 3.5-5.1 CHLORIDE 97 mmol/L L 98-107 CO2 26 meq/L 23-31 CALCIUM 8.5 mg/dL L 8.8-10 CREATININE, Serum 1.11 mg/dL 0.72-1.25 eGFR(CKD-EPI 2020) 69 mL/min >60 Sep 18, 2024 10:18 AM [facility] MICROALBUMIN CREATININE RATIO PANEL URINE Specimen Type: URINE No comment entered. Ordering Provider: TRESSA BOND Report Released Date/Time: Sep 12, 2024 08:55 AM Reporting Lab: [address] [address] Performing Lab: [address] [address] MICROALBUMIN/CREATININE RATIO 211.0 mg/g H 0-29.9 MICROALBUMIN,QUANTITATIVE 5.7 mg/dL RR U NAVAIL CREATININE URINE 27.01 mg/dL L 63-166 Sep 18, 2024 10:18 AM [facility] CBC AND DIFF (AUTO) BLOOD Specimen Ty pe: BLOOD No comment entered. Ordering Provider: TRESSA BOND Report Released Date/Time: Sep 12, 2024 08:55 AM Reporting Lab: [facility] [address] [address] Performing Lab: [facility] [address] [address] WBC 7.56 10*3/uL 4.50-11.00 RBC 3.45 10*6/uL L 4.23-5.66 HGB 10.8 g/dL L 12.8-17 HCT 32.1 L 39.2-50.4 MCV 93.0 fL 82-99 MCHC 33.6 g/dL 30.8-35.1 PLT 218 10*3/uL 140-360 MPV 9.3 fL 9.2-12.4 RDW-CV 13.1 12.0-16.0 MONO, ABS 0.71 10*3/uL 0.30-1.10 MCH 31.3 pg 26.2-32.6 NEUT % 69.0 43.7-75.8 LYMPH % 16.1 14.0-42.3 MONO % 9.4 5.1-13.7 EOS % 4.1 0.4-6.8 BASO % 0.9 0.1-2.0 NEUT, ABS 5.21 10*3/uL 2.20-7.60 LYMPH, ABS 1.22 10*3/uL 1.00-3.20 EOS, ABS 0.31 10*3/uL 0.03-0.44 BASO, ABS 0.07 10*3/uL 0.01-0.13 IMMATURE GRAN % 0.5 0.0-0.7 IMMATURE GRAN, ABS 0.04 10*3/uL 0.00-0.0 6 NRBC % 0.0 0.0-0.0 NRBC, ABS 0.00 10*3/uL 0.00-0.00 Social History: Smoking Status (Most current) and Tobacco Use (All prior to encounter date) This section includes the most current, and the historical, smoking and tobacco- related health factors from the [place] facility where the Encounter took place. Current Smoking Status This section includes the most current smoking, or tobacco-related health factor, from the [place] facility where the Encounter took place. Date/Time Current Smoking Status Comment Ja ity Jan 29, 2024 10:34 AM VA-TOBACCO NEVER USED [facility] Tobacco Use History This section includes a history of the smoking, or tobacco-related health factors, that were collected on or before the date of the Encounter. The data comes from the [place] facility where the Encounter took place. Date/Time Smoking Status/Tobacco Use Comment F acility Dec 19, 2019 12:00 PM VA-TOBACCO FORMER USER [facility] Dec 19, 2019 12:00 PM VA-TOBACCO QUIT 1 TO < 5 YRS [facility] Advance Directives: All historical and current Section Date Range: From patient's date of to the date document was created. This section includes ALL of a patient's completed or amended VA Advance and Rescinded Directives. The entries below indicate that a directive exists for the patient, but an actual copy is not included with this document. The data comes from all [place] facilities. Date Advance Directives Provider Source Mar 29, 2021 ADVANCE DIRECTIVE [facility] Encounter Notes: All associated encounter notes This section contains the clinical notes associated to the Encounter. Date/Time Encounter Note(s) Provider Source Sep 27, 2024 10:00 AM VIST NOTE: LOCAL TITLE: VIS SUPPORT GROUP STANDARD TITLE: VIST NOTE DATE OF NOTE: SEP 27, 2024@10:00 ENTRY DATE: SEP 27, 2024@12:51:38 AUTHOR: RITESH LENNON COSIGNER: URGENCY: STATUS: COMPLETED Technology Support Group Note Appointment Information: () Clinic Visit () Home Visit () Telephone Contact (x) VVC Support Group [facility] Clinician Resources Only: E911 (Emergency Call Relay Center): [phone] Local emergency response numbers can be found at http://www.Yola. National Veterans Crisis Line - , press #1. [facility] Suicide Coordinator [phone], Ext. [phone]; Back-up Ext. [phone] Emergency Plan: confirmed they were at their home location and address/telephone numbers in chart were correct. reported that location is private and safe: Yes Informed Consent: Kermit informed of the risks and benefits of Telehealth video care. has the right to refuse video services. If refuses video visit, a [id number] visit will be scheduled. Kermit verbalized consent for this video visit: Yes Kermit provided consent for any other persons present for visit: Yes Yes If yes, who and relationship to patient: VIS team staff and other Veterans/spouses Secure visit: Visit was locked for security and privacy: Yes Duration of appointment: 1.00 hr. Start Time: 10:00AM End Time: 11:00AM Verified two identifications: (x) Full name () Full Social Security Number () Date of (x) Address () VA ID Card () Other, specify: Kermit agreed to participate in VIS VVC Technology Support Group with fellow Veterans. Ocular Diagnosis: (x) Legal blindness, as defined in [place] (ICD-10-CM H54.8) () Low Vision, Both Eyes (ICD-10-CM H54.2) () Unqualified visual loss, both eyes (ICD-10-CM H54.3) () Additional: Procedure Codes: (1 times) 98291 Theraputic procedure(s), Group (2 or more individuals, 1 unit CPT code per patient) Chief Complaint(s): 1. VIS VVC Technology Support Group Instruction Provided: The Kermit participated along with 7 other Veterans in the Technology Support Group. The Kermit and all other attendees participated via VVC. The utilized their assistive technology devices as appropriate during the group. Today's group discussed the followin. Monthly Lesson/Review Training: a. VIS Program Update i. Continued construction at [facility] 1. Expect traffic route changes when reporting for appointments b. General Tech Topic i. Krux Smart glasses a. Krux HSTN next level features i. More battery stamina: A fully charged pair of Krux HSTN glasses can last up to eight hours of typical use and up to 19 hours on standby. You can charge them up to 50% in just 20 minutes. The glasses also come with a charging case that can deliver up to 48 hours of charging on the go. ii. Higher resolution camera: Capture your activity and share your achievements in Ultra HD (3K) video. b. The Limited-Edition Krux HSTN will be available for preorder starting October 11 for $499 USD, with the rest of the collection starting at $399 USD dropping later this summer. c. 3K video resolution (at an unusual [id number], in portrait mode) provide clearer video capture ii. [employer] AI Bozena a. Discussed some of the benefits of using a large language model AI to query questions. b. Discussed concerns and drawbacks of software iii. Samares.ai a. Samares.[employer] is an all-in-one shopping platform powered by a sophisticated AI-driven shopping general surgery physician assistant. It aggregates millions of products from top Active Storage online retailers and provides real-time product recommendations based on e-commerce data. Samares aims to make online shopping more inclusive, offering a smarter, faster, and more efficient shopping experience. The platform is particularly focused on helping users with Internet Access Challenges like Blind or Low-Vision Users. b. Introducing [id number] ( ) Shop by Phone Experience i. With Shop by Phone, you can browse billions of products from over 500,000 retailers, compare prices, and complete your purchaseall through voice commands. No apps, no internet, just effortless shopping via a phone call. ii. Heres how: 1. Find products easily Simply say, Find me a blue water bottle. 2. Get instant details Ask about size, materials, reviews, or other specifics. 3. Add to cart & checkout Complete your purchase seamlessly with secure payment processing. c. CatchoomS/BIME Analytics and other related topics/information i. iOS Updates 1. Adknowledge 18.5 is latest iOS and Voodoo [employer]aco Update. Veterans reminded to backup device prior to update. 2. Plasmon6 a. next version of BackType b. Liquid Glass i. Makes items on screen appear transparent. ii. Likely being used to begin to get consumers use to the feature for involvement in headbourne devices such as Pixspan Vision Pro and future Pixspan Glasses to allow pass though technology in Augmented reality situations to allow users to see into the background. iii. Issues for Low Vision users 1. Poor contrast could make it difficult to see on-screen items 2. May be able to adjust this option in settings, but unknown at this time. 3. iOTouch-Writer Magnifier a. discussed features and benefits of Magnifier in iOS 4. Training Videos for iOS on My Dentistube by [employer] [place] [employer] [place] a. Link for various training videos on use of iOS provided to Veterans. d. Accessibility Apps i. [employer] AI Bozena 1. The [place] AI bozena is a personalized AI general surgery physician assistant designed to enhance user interaction through voice and text, integrating seamlessly with M Squared Lasers's ecosystem and powered by the Agenus 4 model. 2. [place] Features of the M Squ[employer] Las[employer] AI Bozena a. Personalized Interaction: The bozena learns user preferences and maintains context, allowing for more tailored and relevant responses. It can remember details about users, such as dietary restrictions, to provide personalized recommendations. b. Voice and Text Conversations: Users can engage in natural [id number] conversations with the AI, utilizing voice features for a more intuitive experience. The bozena supports full-duplex speech technology, enabling fluid dialogue. c. Image Generation and Editing: The bozena includes capabilities for generating and editing images, allowing users to create visual content directly through conversations with the AI. d. Discover Feed: A unique feature of the bozena is the Discover feed, where users can explore and share AI-generated content and prompts with the community. This encourages creativity and collaboration among users. e. Integration with M Squared Lasers Products: The Location bozena serves as a whiting can worker for Orlebar Browns smart glasses, enabling users to manage their devices, import media, and more. It is designed to work seamlessly within the M Squared Lasers ecosystem, including Dispop, Ludia, and Facebook. f. Availability i. The Location bozena is available for download on iOS and Android devices, as well as on the web. Users can log in using their existing M [employer] Lasers accounts, including Facebook and Ludia profiles. 2. Round table discussion prompted by Kermit [employer] technology questions on a variety of topics. Prosthetics Ordered: 1. None Next Lesson Objective / Recommendations: 1. Next Group: a. The [facility] Technology Support Group usually meets the last Monday of each month. Note schedule change for next month. The next scheduled meeting is Monday10/21/2024 at 10:00AM to 12:00AM to be held via Conversion Logic. b. The next scheduled meeting for the OneDoc Support Group meets Monday10/11/2024 at 10:00AM to 12:00AM to be held via Conversion Logic. Comments: None How does the patient/client best learn? (x) Observation (x) Repetition (x) Large Print Directions () Standard Print Directions (x) Audible Directions Does the patient/client have any cultural and mandaeism beliefs, emotional barriers, physical or cognitive limitations, and communication barriers which may impact his/her ability to learn? (x) Legally blind () Other: functional vision loss Desire and motivation to learn? (x) Excellent () Moderate () Low Patient Education Education provided on the following topics: see above Education provided to: P Response to Education: NARINDER GARLAND, PI [place] Patient P Family F Significant Other SO Verbalizes Understanding VU Returns Demonstration RD Performs Independently PI Lacks Comprehension LC Refused Education RE Not Applicable NA /kayla/ RITESH LENNON Blind Rehabilitation Outpatient Specialist Signed: 09/27/2024 12:56 RITESH LENNON [facility]
[2024-09-30 10:36] VITALS: BP 142/64; PULSE 94; TEMP 36.9; O2SAT 98; BMI 21.0
--- NOTE | 2024-09-30 10:36 | A.OFFVIS_ITS ---
Vital Signs 09/30/24 10:36 Height 5 ft 5 in Weight 126 lb 1.671 oz BMI 21.0 BP 142/64 H Blood Pressure Location Rt brachial Position Sitting Pulse 94 Pulse Source Pulse Oximeter Temp 98.4 F Temp Source Temporal Artery Scan Pulse Oximetry (%) 98 Oxygen Delivery Method Room Air Intake Visit Reasons: S/P RIH w/mesh Intake Note: Pt presents to the office today for a s/p RIH w/mesh. Pt states he is overall feeling well and denies any concerns at this time. Accompanied by: Spouse Allergies No Known Allergies Allergy (Verified 09/30/24 10:39) HPI HPI S/P RIH w/mesh: Details: Mr. Moy presents for follow up. He underwent repair of a large reducible right inguinal hernia with mesh with Dr. Armenta on 09/13/24. He tolerated the procedure well. He reports taking the oxycodone for a few days after. He developed some constipation for 2 days but is back to his normal schedule with daily BMs. He is tolerating a solid diet. He reports some mild pulling at the incision site but denies pain. He is back to his usualy daily activities and is walking an hour and a half a day. He has no concerns. [facility] Medical History Peripheral neuropathy Diabetes Hyperlipidemia HTN (hypertension) Surgical History (Updated 09/30/24 @ 11:04 by Shirley Acuña PA-C) History of right inguinal hernia repair (09/13/24) History of colonoscopy Social History Household Members: Family Housing: House Do you presently have visiting nurse or other home services: No Alcohol intake: never Comment: uses a walking stick Patient Tobacco Use Status: Former Tobacco user Tobacco use type: Cigar Cigarettes Per Day: 1 Second Hand Smoke Exposure: No Advance Directives Date on File: 06/21/24 service: Yes Review of Systems Const All systems reviewed & are unremarkable except as noted in HPI and below Physical Exam Vital Signs: Last Vital Signs Temp 98.4 F 09/30/24 10:36 Pulse 94 09/30/24 10:36 BP 142/64 H 09/30/24 10:36 Pulse Ox 98 09/30/24 10:36 Oxygen Delivery Method Room Air 09/30/24 10:36 BMI result Body Mass Index 21.0 Const General: comfortable, no acute distress and alert Orientation/consciousness: patient oriented x3 GI Other: RI incision site well healed, incision well approximated, no surrounding erythema, edema or ecchymosis, there is a bulge present but this does not change with valsalva, mildly tender at incision Palpation (GI): Soft to palpation and no guarding Skin General skin exam: no rashes or lesions noted Neuro General: patient oriented x3 and moves all extremities Assessment & Plan Assessment & Plan (1) S/P right inguinal hernia repair, follow-up exam: Code(s): Z09 - Encounter for follow-up examination after completed treatment for conditions other than malignant neoplasm Category: Surgical Plan 74 year old male who underwent repair of right inguinal hernia repair with mesh on 09/13/24. He tolerated the procedure well. Incision site is well healed without any signs of infection. He has a bulge at the RIH repair site that does not change with valsalva, likely a hematoma. Encouraged to do warm compresses/packs a few times daily and follow up in a month to reassess or sooner if he develops concerns. He is comfortable with plan. He is asking for a refill on pain meds. Will send colace additionally. and patient comfortable with plan. Medications: New docusate sodium (Colace) 100 mg PO BID 20 caps 0RF oxycodone Partial Fill upon patient request. 5 mg PO Q6H PRN 14 tabs 0RF pain Coding Level of Care Code Est Pt Level 3 (17779) Diagnoses S/P right inguinal hernia repair, follow-up exam Z09 Time Spent (min) 35
== END 2024-09-30 11:03 | disposition home or self-care (01) ==
LOC: HO.HGS 10:33
PROVIDERS: PCP General Practice; Visit Provider Physician Assistant Surgical
DX: Z09 Encounter for follow-up examination after completed treatment for conditions other than malignant neoplasm (principal)
CPT/HCPCS: 99024

== ENCOUNTER → 2024-09-30 10:32 | Outpatient (BNVA) | payer OTHER, SELFPAY | PROVIDERS: PCP General Practice; Visit Provider Physician Assistant Surgical | DX: Z48.815 Encounter for surgical aftercare following surgery on the digestive system (principal) | CPT/HCPCS: 99212 ==

== ENCOUNTER 2024-11-20 13:48 | Outpatient (AMB) | payer OTHER, SELFPAY ==
--- NOTE | 2024-11-20 14:17 | MHC.OFFVIS ---
Vital Signs 11/20/24 14:24 Height 5 ft 5 in Weight 126 lb BMI 21.0 BP 132/72 Blood Pressure Location Lt brachial Position Sitting Pulse 76 Intake Visit Reasons: s/p RIH w/mesh Intake Note: Pt states, I'm here for follow up from my surgery. no complaints Work Station Support Specialist Required: No Allergies No Known Allergies Allergy (Verified 11/20/24 14:21) Medication List - Last Reconciled 11/20/24 by Dieudonne Ledesma RN amlodipine 5 mg PO DAILY atorvastatin 80 mg PO DAILY docusate sodium (Colace) 100 mg PO BID ezetimibe 10 mg PO DAILY ferrous sulfate 325 mg PO DAILY gabapentin 300 mg PO TID glucose 16 grams PO NEEDED PRN insulin glargine-yfgn 8 units subcut BEDTIME lisinopril 10 mg PO DAILY magnesium oxide 400 mg PO BID omeprazole 20 mg PO DAILY@0630 primidone 50 mg PO BEDTIME sitagliptin 100 mg PO DAILY tamsulosin (Flomax) 0.4 mg PO BEDTIME HPI HPI s/p RIH w/mesh: Details: Doing well. Denies pain. Appetite and bowel function are good. He has been resuming his 2 mi daily walks without issues. No complaints with incision site [facility] Medical History Peripheral neuropathy Diabetes Hyperlipidemia HTN (hypertension) Surgical History (Updated 09/30/24 @ 11:04 by Shirley Acuña PA-C) History of right inguinal hernia repair (09/13/24) History of colonoscopy Social History Household Members: Family Housing: House Do you presently have visiting nurse or other home services: No Alcohol intake: never Comment: uses a walking stick Patient Tobacco Use Status: Former Tobacco user Tobacco use type: Cigar Cigarettes Per Day: 1 Second Hand Smoke Exposure: No Advance Directives Date on File: 06/21/24 service: Yes Review of Systems Const All systems reviewed & are unremarkable except as noted in HPI and below Physical Exam Vital Signs: Last Vital Signs Pulse 76 11/20/24 14:24 BP 132/72 11/20/24 14:24 BMI result Body Mass Index 21.0 Const General: comfortable and no acute distress Orientation/consciousness: patient oriented x3 GI Other: Right inguinal hernia repair incision site. Clean and intact no surrounding erythema nontender no evidence of recurrence with a Valsalva Inspection: No distended Palpation (GI): Soft to palpation and nontender Neuro General: patient oriented x3 Assessment & Plan Assessment & Plan (1) S/P right inguinal hernia repair, follow-up exam: Code(s): Z09 - Encounter for follow-up examination after completed treatment for conditions other than malignant neoplasm Category: Medical Plan 74-year-old male s/p right inguinal hernia repair with mesh on 613 reporting to the office for routine follow-up. Overall doing very well, he is having no pain, appetite and bowel function are at baseline. On exam the abdomen is soft and benign. Incision site appears well healed, there was no air surrounding erythema or fluid collections in his nontender. No concern for infection at this time. At this point patient no longer requiring activity restrictions or routine follow up, he can follow up as needed with any concerns in the future Coding Level of Care Code Global (02120) Diagnoses S/P right inguinal hernia repair, follow-up exam Z09
[2024-11-20 14:24] VITALS: BP 132/72; PULSE 76; BMI 21.0
--- OUTSIDE RECORDS SUMMARY | 2024-11-20 14:44 | XMS_ITS | Patient Health Record ---
Author Organization [facility] Address [address] [place] [id number] Care Team Providers Care Lpn Medical Assistant Name Role Phone Celeste Mishra Primary Care Provider Jason Zavaleta Unavailable [phone] Reason For Referral No Information Medications Medication [...] Problem Status W/U Status Risk Notes Problem [id number] Encounter for screening for malignant neoplasm of colon (Z12.11) Active confirmed Problem [id number] Diarrhea, unspecified type (R19.7) Active confirmed Plan Of Treatment Future Test Test Name Order Date COLONOSCOPY 12/25/2019 Insurance Providers Payer Name Payer Address Payer Phone Subscriber Number Group Number Insured Name Patient Relationship to Insured Coverage Start Date Coverage End Date [facility] [employer] [address] [place] [id number] R[place] KHAN Self - patient is the insured Medical (General) History Medical History History ICD Code IDDM Hypertension Legally Blind - Vision Impaired Denies [place],CVA,Lung disease,renal disease Negative colonoscopy in appr ox. 2009 at [place] and told to do one in 10 years Told of negative stool test at home 2019 --? Cologuard GERD Surgical History Surgery Date(Month/Year)
== END 2024-11-20 14:31 | disposition home or self-care (01) ==
LOC: HO.HGS 13:49
PROVIDERS: PCP General Practice
DX: Z09 Encounter for follow-up examination after completed treatment for conditions other than malignant neoplasm (principal)
CPT/HCPCS: 99024

== ENCOUNTER → 2024-11-20 13:48 | Outpatient (BNVA) | payer OTHER, SELFPAY | PROVIDERS: PCP General Practice | DX: Z98.890 Other specified postprocedural states (principal) | CPT/HCPCS: 99212 ==

== ENCOUNTER 2025-03-19 10:33 | Outpatient (REF) | payer OTHER, SELFPAY ==
[2025-03-19 14:59] LABS: Anion Gap 13 (12-20); Blood Urea Nitrogen 38 mg/dL (9-16); Calcium 9.4 mg/dL (8.4-10.2); Carbon Dioxide 24 mmol/L (22-29); Chloride 101 mmol/L (96-108); Estimated Glomerular Filt Rate 47; Potassium 4.9 mmol/L (3.3-5.1); Sodium 133 mmol/L (135-145)
== END 2025-03-19 10:34 | disposition home or self-care (01) ==
LOC: HO.HKASLDS 10:33
PROVIDERS: Visit Provider Internal Medicine Hypertension Specialist
DX: E87.1 Hypo-osmolality and hyponatremia (principal); I12.9 Hypertensive chronic kidney disease with stage 1 through stage 4 chronic kidney disease, or unspecified chronic kidney disease; E11.22 Type 2 diabetes mellitus with diabetic chronic kidney disease; N18.9 Chronic kidney disease, unspecified; Z71.89 Other specified counseling
CPT/HCPCS: 36415; 80048

== ENCOUNTER 2025-03-19 10:33 | Outpatient (AMB) | payer OTHER, SELFPAY ==
--- NOTE | 2025-03-19 10:37 | HO.NEPHOV_ITS ---
Vital Signs 03/19/25 10:38 03/19/25 10:46 Height 5 ft 5 in Weight 127 lb BMI 21.1 BP 148/70 H 134/74 Blood Pressure Location Lt brachial Lt brachial Position Sitting Sitting Pulse 113 H Pulse Source Pulse Oximeter Pulse Oximetry (%) 97 Oxygen Delivery Method Room Air Intake Visit Reasons: 6m follow up Data Management Manager Required: No Accompanied by: Self / Same As Patient Allergies No Known Allergies Allergy (Verified 03/19/25 10:38) Medication List - Last Reconciled 03/19/25 by Bernardo Tyson MD amlodipine 5 mg PO DAILY atorvastatin 80 mg PO DAILY docusate sodium (Colace) 100 mg PO BID ezetimibe 10 mg PO DAILY ferrous sulfate 325 mg PO DAILY gabapentin 300 mg PO TID glucose 16 grams PO NEEDED PRN insulin glargine-yfgn 8 units subcut BEDTIME lisinopril 10 mg PO DAILY magnesium oxide 400 mg PO BID omeprazole 20 mg PO DAILY@0630 primidone 50 mg PO BEDTIME sitagliptin 100 mg PO DAILY tamsulosin (Flomax) 0.4 mg PO BEDTIME HPI Comments Details: History of Present Illness The patient is a 74-year-old male presenting for follow-up of his hyponatremia and kidney function. He has a history of diabetes mellitus, which is reportedly well-controlled with a reduced insulin regimen of 10 units at nighttime, and he no longer requires pre-meal insulin. He reports engaging in a lot of walking. His kidney function has been gradually improving, with his estimated glomerular filtration rate increasing from 41% in August to over 60% at present. The patient also has a history of hypertension and is prescribed lisinopril and amlodipine. Regarding his hyponatremia, he has been counselled about fluid intake, as he previously drank too much in the summer and not enough in the winter. His other medical history includes being blind, for which he uses talking [facility]. He also takes gabapentin. His last blood test was conducted three to four months ago. Results - Labs: Kidney function was 41% in August and has improved to over 60%. [facility] Medical History Peripheral neuropathy Diabetes Hyperlipidemia HTN (hypertension) Surgical History History of right inguinal hernia repair (09/13/24) History of colonoscopy Social History Household Members: Family Housing: House Do you presently have visiting nurse or other home services: No Alcohol intake: never Comment: uses a walking stick Patient Tobacco Use Status: Former Tobacco user Tobacco use type: Cigar Cigarettes Per Day: 1 Second Hand Smoke Exposure: No Advance Directives Date on File: 06/21/24 service: Yes Physical Exam Exam Exam: Physical Exam General: Awake. Comfortable. HENT: Neck supple. Mucosa moist. Pulmonary: Lungs aeration equal. No rales. Cardiology: Heart S1-S2 heard. No gallop. Abdomen: Soft. Non tender. Bowel sounds normal. Neurologic: No involuntary movements. No myoclonus. Extremities: No edema. No rash. Blood pressure: 134/70. Vital Signs: Last Vital Signs Pulse 113 H 03/19/25 10:38 BP 134/74 03/19/25 10:46 Pulse Ox 97 03/19/25 10:38 Oxygen Delivery Method Room Air 03/19/25 10:38 BMI result Body Mass Index 21.1 Results Reviewed Nephrology Results: Hgb, (14.0-18.0) 10.3 g/dl L 09/04/24 WBC, (4.8-10.8) 7.5 X10*3/uL 09/04/24 Plt Count, (160-400) 246 X10*3/uL 09/04/24 Sodium, (135-145) 132 mmol/L L 09/18/24 Potassium, (3.3-5.1) 4.7 mmol/L 09/18/24 Chloride, (96-108) 99 mmol/L 09/18/24 Carbon Dioxide, (22-29) 27 mmol/L 09/18/24 BUN, (9-16) 19 mg/dL H 09/18/24 Creatinine, (0.5-1.4) 1.08 mg/dL 09/18/24 Calcium, (8.4-10.2) 9.1 mg/dL 09/18/24 Assessment & Plan Assessment & Plan (1) Acute hyponatremia: Code(s): E87.1 - Hypo-osmolality and hyponatremia Category: Medical Plan Plan 1. Chronic Kidney Disease - The patient's kidney function has improved significantly, from 41% in August to over 60%. - An order for blood work will be placed today to re-evaluate kidney function. - The patient will follow up in six months for continued monitoring. 2. Hyponatremia - The patient was advised to maintain a balanced fluid intake, avoiding both excessive and insufficient water consumption. - A blood test will be performed today to check sodium levels. 3. Hypertension - Blood pressure will be monitored, with the most recent in-office reading being 134/70 mmHg. - The patient will continue his current antihypertensive medications, which include lisinopril and amlodipine. 4. Diabetes Mellitus - The patient's blood sugar is well-controlled with his current insulin regimen of 10 units at night. - Blood work ordered for today will include monitoring of his diabetes. 5. Health Maintenance - A lab order will be placed for blood work to be done today. - The patient is scheduled for a follow-up visit in six months. Orders: Orders Basic Metabolic Panel Today E87.1 - Hypo-osmolality and hyponatremia Coding Level of Care Code Est Pt Level 4 (15746) Diagnoses Acute hyponatremia E87.1
[2025-03-19 10:38] VITALS: BP 148/70; PULSE 113; O2SAT 97; BMI 21.1
[2025-03-19 10:46] VITALS: BP 134/74
--- OUTSIDE RECORDS SUMMARY | 2025-03-19 13:12 | XMS_ITS | Patient Health Record ---
Author Organization [facility] Address [address] [place] [id number] Care Team Providers Care Clinic Physician Director Name Role Phone Celeste Mishra Primary Care Provider Jason Zavaleta Unavailable [phone] Reason For Referral No Information Medications Medication SIG (Take, Route, Frequency, Duration) Notes Start Date End Date Status Ibuprofen PRN Active Primidone 50 MG Tablet 1 tablet Orally 1 po qd Active Omeprazole 20 MG Capsule Delayed Release 1 capsule 30 minutes before morning meal Orally Once a day; Duration: 30 day(s) Active Metoprolol & Diet Manage Prod 50 MG Miscellaneous as directed Orally 1 po bid Active amLODIPine Besylate 10 MG Tablet 1 tablet Orally Once a day; Duration: 30 day(s) Active Chlorthalidone 25 MG Tablet 1/2 tablet i n the morning with food Orally Once a day Active Pravastatin Sodium 40 MG Tablet 1 tablet Orally Once a day; Duration: 30 day(s) Active Tylenol PRN Active Aspir-81 Active Iron Active Lantus Active Lisinopril 20 MG Tablet 1 tablet Orally Once a day; Duration: 30 day(s) Active Immunizations Vaccine Route Administration Date Status Comme nts Influenza Unknown 12/11/2019 Administered Social History Tobacco Use: Social History Observation Description Date Details (start date - stop date) Current Smoker NA - NA Social History Drugs/Alcohol: Social Info Question Answer Notes Alcohol Screen Did you have a drink containing alcohol in the past year? Yes How often did you have a drink containing alcohol in the past year? 2 to 4 times a month (2 points) How many drinks did you have on a typical day when you were drinking in the past year? 1 or 2 drinks (0 point) How often did you have 6 or more drinks on one occasion in the past year? Never (0 point) Points 2 Interpretation Negative Tobacco Use: Social Info Question Answer Notes Tobacco Use/Smoking Patient is a current smoker How often do you smoke cigarettes? some days, but not every day Additional Details Category Social Info Options Details Miscellaneous: Marital status: Occupation: retired Section Notes: Cigars ocassionally; maybe t wo beers a week rarely, wine with meal once in a while Problems Problem Type SNOMED Code ICD Code Onset Dates Problem Status W/U Status Risk Notes Problem Screening for malignant neoplasm of colon ([id number]) Encounter for screening for malignant neoplasm of colon (Z12.11) Active confirmed Problem Diarrhea (15341785) Diarrhea, unspecified type (R19.7) Active confirmed Plan Of Treatment Future Test Test Name Order Date COLONOSCOPY 12/25/2019 Insurance Providers Payer Name Payer Address Payer Phone Subscriber Number Group Number Insured Name Patient Relationship to Insured Coverage Start Date Coverage End Date [facility] [employer] [address] [place] [id number] R[place] KHAN Self - patient is the insured Medical (General) History Medical History History ICD Code IDDM Hypertension Legally Blind - Vision Impaired Denies [place],CVA,Lung disease,renal disease Negative colonoscopy in appr ox. 2009 at [place] and told to do one in 10 years Told of negative stool test at home 2019 --? Cologuard GERD Surgical History Surgery Date(Month/Year)
== END 2025-03-19 16:59 | disposition home or self-care (01) ==
LOC: HO.HKAS 10:34
PROVIDERS: Visit Provider Internal Medicine Hypertension Specialist
DX: E87.1 Hypo-osmolality and hyponatremia (principal)
CPT/HCPCS: 99214